=== PATIENT | female | born 1995 | race Caucasian/White ===

== ENCOUNTER 2020-06-06 11:50 | Emergency (ER) | payer OTHER, SELFPAY ==
[2020-06-06 11:51] VITALS: BP 100/62; PULSE 97; RESP 16; TEMP 36.7; O2SAT 98
--- NOTE | 2020-06-06 12:01 | ED.GENADULT ---
HPI - General Adult General Chief complaint: [employer] Stated complaint: ?FB VAGINAL Time Seen by Provider: 06/06/20 12:00 Source: patient Mode of arrival: ambulatory Limitations: no limitations History of Present Illness HPI narrative: Patient is here for concern for a retained tampon. She states that she had too much to drink last night and had intercourse with her boyfriend and thinks she forgot to remove her tampon. They they had intercourse again this morning and her boyfriend stated that he felt he could feel something. She did not try to remove the tampon herself. Onset (ago): hour(s) Treatments prior to arrival: none Related Data Home Medications Medication Instructions Recorded Confirmed escitalopram oxalate 10 mg 06/06/20 Allergies Allergy/AdvReac Type Severity Reaction Status Date / Time No Known Allergies Allergy Verified 03/05/18 15:48 Review of Systems Review of Systems: All systems reviewed & are unremarkable except as noted in HPI and below PMFSH Past Medical History Medical History (Updated 06/06/20 @ 12:16 by Mariajose Saxena PA-C) delivery delivered Colitis Depression Social History Social History (Updated 06/06/20 @ 12:11 by Mariajose Saxena PA-C) Social History: Smokes rarely. Smoking status: Current some day smoker Second hand tobacco smoke exposure: Yes Alcohol intake: current Substance use: unknown Exam Const: General: no acute distress and alert Orientation/consciousness: patient oriented x3 Eyes: Pupils: Equal, round and reactive pupils present Resp: Effort & Inspection: normal respiratory effort GI: GI Palp: Yes Soft to palpation : Speculum Exam - Vagina: normal vaginal discharge and foreign body (tampon) Skin: General skin exam: normal color Psych: Mental Status: mental status grossly normal Course Course Emergency Course: Vital Signs Vital signs: Vital Signs Temperature 36.7 C 06/06/20 11:51 Pulse Rate 97 06/06/20 11:51 Respiratory Rate 16 06/06/20 11:51 Blood Pressure 100/62 06/06/20 11:51 Pulse Oximetry 98 06/06/20 11:51 Temperature 36.7 C 06/06/20 11:51 Pulse Rate 97 06/06/20 11:51 Respiratory Rate 16 06/06/20 11:51 Blood Pressure 100/62 06/06/20 11:51 Pulse Oximetry 98 06/06/20 11:51 Procedures Foreign Body Removal Foreign Body #1: Foreign Body Removal Date: 06/06/20 Foreign Body Removal Time: 12:00 Time Out Performed: no Site: vagina Description of foreign body: other (tampon) Sedation/Analgesia: none Technique: manual removal Complications: none Post-procedure exam: awake, alert Medical Decision Making Vital Signs Vital Signs: Vital Signs Temperature 36.7 C 06/06/20 11:51 Pulse Rate 97 06/06/20 11:51 Respiratory Rate 16 06/06/20 11:51 Blood Pressure 100/62 06/06/20 11:51 Pulse Oximetry 98 06/06/20 11:51 Temperature 36.7 C 06/06/20 11:51 Pulse Rate 97 06/06/20 11:51 Respiratory Rate 16 06/06/20 11:51 Blood Pressure 100/62 06/06/20 11:51 Pulse Oximetry 98 06/06/20 11:51 Discharge Plan Discharge Clinical Impression: Retained tampon Qualifiers: Encounter type: initial encounter Qualified Code(s): T19.2XXA - Foreign body in vulva and vagina, initial encounter Patient Disposition: Home, Self-Care Condition: Improved Instructions: Antibiotic Form, Vaginal Foreign Body (ED) Prescriptions: No Action escitalopram oxalate 10 mg tablet 10 mg RF: 0 Follow-up/Referrals: Jack Uribe MD [Primary Care Provider] - Time of Disposition: 12:16
== END 2020-06-06 12:29 | disposition home or self-care (01) ==
PROVIDERS: Emergency Provider Emergency Medicine; PCP Family Medicine
DX: T19.2XXA Foreign body in vulva and vagina, initial encounter (principal); F32.9 Major depressive disorder, single episode, unspecified; F17.200 Nicotine dependence, unspecified, uncomplicated
CPT/HCPCS: 99282

== ENCOUNTER 2021-01-26 11:30 | Outpatient (CLI) | payer OTHER, SELFPAY ==
--- NOTE | 2021-01-26 11:30 | LDADM ---
Addendum entered by Anna Mejia RN 01/26/21 13:05: Wrong note Original Note: This patient, Hannah Luis, was admitted to [facility] on 01/26/21 at 11:30. Plans for labor, pain management and were discussed with patient. Patient/family oriented to hospital policies and general routines including ID bracelet, bed and alarms, visiting hours, pain management, procedures, bathroom and other care routines, personal items, smoking policy, room service/diet and guest tray routines, infant security routines, and visiting hours. Patient/Family are encouraged to report perceived risks to care and to ask questions if they do not understand what they are told or what they should do. See OBIX for further documentation.
[2021-01-26 11:42] VITALS: BP 120/65; PULSE 82
[2021-01-26 11:45] VITALS: BP 113/59; PULSE 79
[2021-01-26 12:00] VITALS: BMI 28.2
--- NOTE | 2021-01-26 13:06 | OBADM ---
This patient, Hannah Luis, admitted to the OB room [facility] for observation. Patient/family oriented to hospital policies and general routines including ID bracelet, bed and alarms, visiting hours, pain management, procedures, bathroom and other care routines, personal items, smoking policy, room service/diet, and visiting hours. Patient/Family are encouraged to report perceived risks to care and to ask questions if they do not understand what they are told or what they should do.
--- NOTE | 2021-01-26 13:06 | PC.NURSE ---
Pt presents stating that she is having lots of pressure in her vagina since this morning, and states it feels like the baby is trying to break my water . Dr Rondon was contacted at 1210 and orders were given to watch her on the monitor for a little bit longer and to d/c home if everything continues to look good.
--- NOTE | 2021-01-28 06:11 | PM.OBTRLD ---
OB - Triage/Final Diagnosis Visit Information Reason for evaluation: threatened labor Comments/Additional reasons for admission: I have assessed the risk for this patient, Hannah Luis, and determined that she would benefit from observation care.
== END 2021-01-26 12:50 | disposition home or self-care (01) ==
LOC: ANHOBPP 12:48 → ANHOBOP 01-27 13:15 → ANHOBPP 02-02 08:16
PROVIDERS: Visit Provider Obstetrics & Gynecology
DX: O41.8X30 Other specified disorders of amniotic fluid and membranes, third trimester, not applicable or unspecified (principal); Z3A.28 28 weeks gestation of pregnancy
CPT/HCPCS: 99199; G0378; G0379

== ENCOUNTER 2021-02-23 12:18 | Observation (INO) | payer OTHER, SELFPAY ==
[2021-02-23] VITALS (12 sets, daily range): BP systolic 105–117; BP diastolic 61–74; PULSE 72–94; TEMP 36.6–36.8; BMI 29.3
[2021-02-23 13:32] LABS: Basophils Percent Auto 0.2 % (0.2-1.2); Eosinophils Absolute Auto 0.2 K/mm3 (0-0.3); Eosinophils Percent Auto 1.8 % (0-4.4); Hematocrit 34.1 % (37.0-47.0); Immature Granulocyte Absolute 0.03 K/mm3 (0.00-0.031); Immature Granulocyte Percent A 0.4 % (0-0.5); Lymphocytes Absolute Auto 1.98 K/mm3 (0.9-3.2); Lymphocytes Percent Auto 23.2 % (18.3-44.2); Mean Corpuscular HGB Conc 32.3 g/dl (32-36); Mean Corpuscular Volume 86.8 fl (80-100); Mean Platelet Volume 9.9 fl (7.4-10.4); Monocytes Absolute Auto 0.7 K/mm3 (0.1-0.6); Monocytes Percent Auto 8.4 % (2.6-8.5); Neutrophils Absolute Auto 5.6 K/mm3 (1.3-6.7); Platelet Count Result 213 k/mm3 (150-375); Red Blood Count 3.93 M/mm3 (4.2-5.4); Red Cell Distribution Width 15.1 % (11.5-14.5); White Blood Count 8.5 K/mm3 (4.5-10.0)
[2021-02-23] MEDS: AMPICILLIN 2 GM/NS 100 ML 2 GM/100 ML BAG IVPB (13:34)
[2021-02-23] MEDS: BETAMETHASONE SOD PHOS/ACETATE 30 MG/5 ML VIAL 12 MG IM (13:34)
[2021-02-23] MEDS: LACTATED RINGERS 1,000 ML 125 ML IV CONT (13:35)
--- NOTE | 2021-02-23 14:09 | P.HP_ITS ---
H&P: HPI History of Present Illness Date/Time: 02/23/21 14:09 25 y/o presents with leaking fluids and spotting this morning. PNC without issue. 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 Chief Complaint: Review of Systems Review of Systems: All systems reviewed & are unremarkable except as noted in HPI and below PMFSH Past Medical History Medical History delivery delivered Colitis Depression Social History Social History Social History: Smokes rarely. Smoking status: Current some day smoker Second hand tobacco smoke exposure: Yes Alcohol intake: current Substance use: unknown Meds Home Medications and Allergies Home Medications Medication Instructions Recorded Confirmed Type escitalopram oxalate 10 mg 06/06/20 History Allergies Allergy/AdvReac Type Severity Reaction Status Date / Time No Known Allergies Allergy Verified 03/05/18 15:48 Vital Signs Vital Signs - 24 hr 02/23/21 13:00 02/23/21 13:16 02/23/21 13:30 Pulse Rate 72 94 74 Blood Pressure 105/61 117/74 112/70 02/23/21 13:45 02/23/21 14:00 Pulse Rate 77 77 Blood Pressure 113/65 117/67 Exam Const: General: cooperative Resp: Effort & Inspection: normal respiratory effort Auscultation: clear to auscultation bilaterally Cardio: Rate: regular rate Rhythm: regular rhythm GI: Auscultation: normal bowel sounds : External Female Exam: normal external appearance Speculum Exam - Vagina: other (vaginal clear d/c. some spotting) Bimanual exam- vagina & uterus: enlarged (30 cm vertex presentation) H&P: Results Labs Labs: Short CBC 02/23/21 Range/Units 13:25 WBC 8.5 (4.5-10.0) K/mm3 Hgb 11.0 L (12.0-15.0) g/dL Hct 34.1 L (37.0-47.0) % Plt Count 213 (150-375) k/mm3 Assessment and Plan Assessment and plan (1) 32 weeks gestation of : Code(s): Z3A.32 - 32 weeks gestation of Status: Acute (2) Ruptured, membranes, premature: Code(s): O42.90 - Premature rupture of membranes, unspecified as to length of time between rupture and onset of labor, unspecified weeks of gestation Status: Acute (3) Previous delivery affecting , delivered: Code(s): O34.219 - Maternal care for unspecified type scar from previous delivery Status: Acute Additional Plan 1. Magnesium 2. Antibiotics 3. Steroids 4. Transfer to [facility]
[2021-02-23] MEDS: MAGNESIUM SULF 4 GM/WATER100ML 4 GM/100 ML BAG IVPB (14:15)
[2021-02-23] MEDS: MAGNESIUM SULF 20GM/WATER500ML 500 ML 50 MG IV CONT (14:45)
== END 2021-02-23 15:38 | disposition home or self-care (01) ==
LOC: ANHOBPP 15:41 → ANHOBOP 02-25 09:46 → ANHOBPP 02-25 09:47
PROVIDERS: Admitting Provider Obstetrics & Gynecology; Visit Provider Obstetrics & Gynecology
DX: O42.913 Preterm premature rupture of membranes, unspecified as to length of time between rupture and onset of labor, third trimester (principal); Z3A.32 32 weeks gestation of pregnancy
CPT/HCPCS: 36415; 85025; 96372; 96374; 96375; G0378; G0379; J0290; J0702; J1364; J3475; J7120

== ENCOUNTER 2021-08-05 11:41 | Emergency (ER) | payer OTHER, SELFPAY ==
--- NOTE | ~2021-08-05 | XR_ITS ---
EXAMINATION: XR lumbar spine min 4V DATE: 08/05/2021 13:30 INDICATION: Low back pain. TECHNIQUE: 5 views of lumbar spine were obtained. COMPARISON: None. FINDINGS: L3 and L4 are limbus vertebrae. There are Schmorl's nodes at most levels. There is kyphosis of upper lumbar spine. There is mildly decreased disc height at L3-L4 and L4-L5. At L5-S1, there is mild bilateral facet joint osteoarthritis. IMPRESSION: 1. Mild lumbar spondylosis. Reviewed, dictated and finalized at location A. IMPRESSION: 1. Mild lumbar spondylosis.
[2021-08-05 11:50] VITALS: BP 107/60; PULSE 67; RESP 16; TEMP 36.5; O2SAT 100
--- NOTE | 2021-08-05 12:32 | ED.BACK ---
HPI - Back Pain/Injury General Chief Complaint: Back Pain/Injury Stated Complaint: back pain Time Seen by Provider: 08/05/21 12:26 Source: RN notes reviewed History of Present Illness HPI Narrative: Patient presents emergency room from home for low back pain. Patient states yesterday she has been to over cleaning she had pain in her bilateral lower back states it hurts to fully stand up and she cannot fully stand up straight she denies any falls or back or direct trauma states she is had a history of chronic back issues since she was 14 years old she denies any fevers or chills abdominal pain nausea or vomiting numbness or tingling in the extremities or any other symptoms states the pain does radiate in the left leg at times denies any bowel or bladder incontinence Related Data Allergies Allergy/AdvReac Type Severity Reaction Status Date / Time No Known Allergies Allergy Verified 03/05/18 15:48 Review of Systems Review of Systems: Gen.: Denies fevers or chills ENT: Denies congestion Respiratory: Denies shortness of breath or cough CV: Denies chest pain or palpitations GI: Denies abdominal pain nausea, emesis or diarrhea denies incontinence Musculoskeletal: See HPI Neuro: Denies numbness, tingling, weakness or focal weakness Skin: Denies rash Except as documented, all other systems reviewed and negative PENDING SALE TO [facility] Past Medical History Medical History delivery delivered Colitis Depression Social History Social History Social History: Smokes rarely. Smoking status: Current some day smoker Second hand tobacco smoke exposure: Yes Alcohol intake: current Substance use: unknown Exam Narrative: APPEARANCE: No acute distress, nontoxic, resting in bed Eyes: EOMI HEENT: Normocephalic, atraumatic, CV: Regular rate and rhythm without murmur RESPIRATORY: No respiratory distress. Clear to auscultation bilaterally. Abdomen: Soft and nontender, no rebound or guarding MUSCULOSKELETAl: Moves all extremities, no clubbing cyanosis or edema Back: No midline lumbar tenderness to palpation or step-off, tender to palpation over bilateral paravertebral muscles L3-5 , pain increased with forward flexion NEURO: Awake and alert. Following commands, speech normal, no focal deficits, muscle strength 5 out of 5 bilateral lower extremities, bilateral patellar reflex 2+ SKIN:: Warm, dry. Normal Color no rash or lesions Course Vital Signs Vital signs: Vital Signs Temperature 97.7 F 08/05/21 11:50 Pulse Rate 67 08/05/21 11:50 Respiratory Rate 16 08/05/21 11:50 Blood Pressure 107/60 08/05/21 11:50 Pulse Oximetry 100 08/05/21 11:50 Temperature 97.7 F 08/05/21 11:50 Pulse Rate 67 08/05/21 11:50 Respiratory Rate 16 08/05/21 11:50 Blood Pressure 107/60 08/05/21 11:50 Pulse Oximetry 100 08/05/21 11:50 MDM - Back Pain/Injury MDM Narrative Medical decision making narrative: Patient?s pain is positional and localized to back without signs of cord compression or cauda equina. Normal nuerologic exams. No fever noted and no significant risk factors for osteomyelitis or spinal epidural abscess. No symptoms or signs to suggest pain is referred from abdominal or source. There are no pulsatile masses to exam. Patient ambulates with a steady gait and is felt to be up reasonable candidate for continued outpatient management Imaging Data Radiologist's impression: ITS Impressions Lumbar Spine X-Ray 08/05/21 13:32 IMPRESSION: 1. Mild lumbar spondylosis. Discharge Plan Discharge Clinical Impression: Low back pain Patient Disposition: Home, Self-Care Condition: Stable Instructions: Antibiotic Form, Acute Low Back Pain (ED) Additional Instructions: Return for increasing pain numbness or tingling in extremities bowel or bladder incontinence or any other symptoms
[2021-08-05] MEDS: CYCLOBENZAPRINE HCL 10 MG TABLET PO (12:55)
[2021-08-05] MEDS: IBUPROFEN 600 MG TABLET PO (12:55)
== END 2021-08-05 13:50 | disposition home or self-care (01) ==
PROVIDERS: Emergency Provider Emergency Medicine
DX: M54.50 Low back pain, unspecified (principal); F17.200 Nicotine dependence, unspecified, uncomplicated; M47.816 Spondylosis without myelopathy or radiculopathy, lumbar region
CPT/HCPCS: 72110; 99283; A9270

== ENCOUNTER 2022-05-09 15:07 | Emergency (ER) | payer OTHER, SELFPAY ==
--- NOTE | ~2022-05-09 | XR_ITS ---
XR foot LT min 3V DATE: 05/09/2022 16:03 INDICATION: Heel pain, foot pain. Plantar callus. No known injury. TECHNIQUE: 4 views COMPARISON: None FINDINGS: No fracture or dislocation, periosteal reaction or bone destruction. Joint spaces are prese rved. No erosive change. IMPRESSION: Negative Reviewed, dictated and finalized at location A. IMPRESSION: Negative
[2022-05-09 15:22] VITALS: BP 113/78; PULSE 69; RESP 14; TEMP 36.7; O2SAT 100
--- NOTE | 2022-05-09 16:23 | ED.LOWEXIN ---
HPI - Extremity Injury (Lower) General Chief Complaint: Extremity Injury, Lower <Hannah Tipton PA-C - Last Filed: 05/09/22 17:27> Stated Complaint: LEFT FOOT PAIN <SELWYN Herrera Last Filed: 05/09/22 17:27> Time Seen by Provider: 05/09/22 16:07 <Hannah Tipton PA-C - Last Filed: 05/09/22 17:27> Source: patient <SELWYN Herrera Last Filed: 05/09/22 17:27> Mode of arrival: ambulatory <SELWYN Herrera Last Filed: 05/09/22 17:27> Limitations: no limitations <SELWYN Herrera Last Filed: 05/09/22 17:27> History of Present Illness HPI Narrative: Patient is a 26-year-old female who presents the ED with report of left foot pain. Patient reports having pain to the ball of her foot, and near her left heel, in the region of her arch. She states the pain has been ongoing and progressively worsening for the past year, but she started a new job yesterday and has had increasing pain since being on her feet. She has not taken anything for the pain today. She states the pain in her forefoot only occasionally hurts, but the pain near her heel is very severe in the morning. Improves throughout the day, but then achy at night after being on her feet. Denies any numbness, tingling, weakness. Denies injury or recent falls. <SELWYN Herrera Last Filed: 05/09/22 17:27> Related Data Allergies/Adverse Reactions: Allergies Allergy/AdvReac Type Severity Reaction Status Date / Time No Known Allergies Allergy Verified 05/09/22 16:03 <Hannah Tipton PA-C - Last Filed: 05/09/22 17:27> Review of Systems Review of Systems: CONSTITUTIONAL: Denies fever, chills, or sweats. EYES: Denies visual changes, redness, or discharge. ENT: Denies rhinorrhea, congestion, sore throat, or otalgia. CARDIOVASCULAR: Denies chest pain, palpitations, or edema. RESPIRATORY: Denies cough or dyspnea. GASTROINTESTINAL: Denies abdominal pain, nausea, vomiting, or diarrhea. GENITOURINARY: Denies dysuria or hematuria. SKIN: Denies rash or itching. MUSCULOSKELETAL: Denies back pain, joint pain, or myalgia. NEUROLOGIC: Denies numbness, tingling, or weakness. <Hannah Tipton PA-C - Last Filed: 05/09/22 17:27> All systems reviewed & are unremarkable except as noted in HPI and below <Hannah Tipton PA-C - Last Filed: 05/09/22 17:27> PMFSH Past Medical History Medical History: Medical History (Updated 05/09/22 @ 16:50 by Hannah Tipton PA-C) delivery delivered Colitis Depression <Hannah Tipton PA-C - Last Filed: 05/09/22 17:27> Surgical History Surgical History: Surgical History (Updated 05/09/22 @ 16:25 by Hannah Tipton PA-C) History of section <Hannah Tipton PA-C - Last Filed: 05/09/22 17:27> Social History Social History: Social History Social History: Smokes rarely. Smoking status: Current some day smoker Second hand tobacco smoke exposure: Yes Alcohol intake: current Substance use: unknown <Hannah Tipton PA-C - Last Filed: 05/09/22 17:27> Exam Narrative: GENERAL: Well appearing, well-nourished, non-toxic, in no acute distress. HEAD: Normocephalic, atraumatic. RESPIRATORY: Airway patent, respirations nonlabored. CARDIOVASCULAR: Regular rate and rhythm without murmurs, rubs, or gallops. Pedal pulses 2+ and equal bilaterally. MUSCULOSKELETAL: Moves all extremities. Strength/ROM intact without gross deformities. Tender marble sized thickening of tissue between 2nd/3rd MTPs, palpable on plantar aspect of forefoot. TTP of plantar aspect of R foot/arch, along plantar fascia, just distal to calcaneus. No edema. No calf tenderness. SKIN: Warm, dry, normal color. No rashes. NEURO: A&O X3. Speech clear. Cranial nerves II-XII grossly intact. Steady gait. No ataxic movements. PSYCHIATRIC: Appropriate mood and affect. Normal interaction. <Hannah Tipton PA-C - Last Filed:
[2022-05-09] MEDS: KETOROLAC (*BKC) 60 MG/2 ML VIAL IM (17:09)
== END 2022-05-09 17:20 | disposition home or self-care (01) ==
PROVIDERS: Emergency Provider Emergency Medicine
DX: M72.2 Plantar fascial fibromatosis (principal); F17.200 Nicotine dependence, unspecified, uncomplicated
CPT/HCPCS: 73630; 96372; 99283; J1885

== ENCOUNTER 2023-04-01 17:47 | Observation (INO) | payer OTHER, SELFPAY ==
[2023-04-01 18:17] VITALS: BP 109/63; PULSE 76
[2023-04-01 18:21] VITALS: RESP 17; TEMP 36.8
[2023-04-01 18:35] LABS: Appearance Urine Cloudy (Clear); Bacteria Urine 1+ /hpf; Bilirubin Urine Negative (Negative); Blood Urine Negative (Negative); Color Urine Dark Yellow (Yellow); Glucose Urine UA Negative (Negative); Ketones Urine Trace mg/dL (Negative); Leukocyte Esterase Ur Trace LEU/UL (NEGATIVE); Nitrate Urine Negative (Negative); Non Pathogenic Casts 0-2; Protein Urine Trace mg/dL (Negative); RBC Urine 0-2 /hpf (0-2); Specific Grav Ur 1.031 (1.001-1.035); Squamous Epithelial Cell Urine Few /hpf (Few); Urobilinogen Urine 0.2 mg/dL (<2.0); pH Urine 5.5 (5.0-9.0)
[2023-04-01 18:43] LABS: Add Urine Microscopic? YES
--- NOTE | 2023-04-01 18:47 | PC.NURSE ---
Updated Dr. Urbina on patient UA results, UA reflexed to culture. Patient states pain is worsened with movement. Patient VSS. FHT doppled 145. No contractions noted with TOCO monitor. Discharge orders received.
--- NOTE | 2023-04-01 19:05 | PC.NURSE ---
Discharge instructions reviewed with patient. labor precautions reviewed with patient. Macrobid prescription education provided to patient and patient instructed to pickle solution maker prescription at her pharmacy and take it as prescribed. Patient states understanding of discharge instructions and denies any questions. Patient instructed to take tylenol and use ice and heat for pain relief. Patient states she is comfortable with discharge and understands instructions.
--- NOTE | 2023-04-01 19:12 | PC.NURSE ---
Patient left OB unit ambulating.
--- NOTE | 2023-04-04 07:26 | PM.OBTRLD ---
OB - Triage/Final Diagnosis Visit Information Reason for evaluation: other ( back pain) Comments/Additional reasons for admission: I have assessed the risk for this patient, Hannah Luis, and determined that she would benefit from observation care. Evaluation Laboratory results: Laboratory Tests 04/01/23 18:21 Urine Color Dark yellow Urine Appearance Cloudy H Urine pH 5.5 Ur Specific [place] 1.031 Urine Protein Trace Urine Glucose (UA) Negative Urine Ketones Trace H Ur Blood (Man) Negative Urine Nitrate Negative Urine Bilirubin Negative Urine Urobilinogen 0.2 Ur Leukocyte Esterase Trace H Urine RBC 0-2 Urine WBC 11-20 H Ur Squamous Epith Cells Few Urine Bacteria 1+ H Urine Casts 0-2
== END 2023-04-01 19:13 | disposition home or self-care (01) ==
PROVIDERS: Admitting Provider Obstetrics & Gynecology Gynecology; Visit Provider Obstetrics & Gynecology Gynecology
DX: O99.891 Other specified diseases and conditions complicating pregnancy (principal); M54.9 Dorsalgia, unspecified; Z3A.16 16 weeks gestation of pregnancy
CPT/HCPCS: 81001; 87086; 87088; G0378; G0379

== ENCOUNTER 2023-07-11 20:33 | Observation (INO) | payer OTHER, SELFPAY ==
[2023-07-11 20:54] VITALS: BP 116/68; PULSE 97
[2023-07-11 21:13] LABS: Appearance Urine Clear (Clear); Bacteria Urine None Seen /hpf; Bilirubin Urine Negative (Negative); Blood Urine Negative (Negative); Color Urine Yellow (Yellow); Glucose Urine UA Negative (Negative); Ketones Urine Negative (Negative); Leukocyte Esterase Ur Trace LEU/UL (NEGATIVE); Nitrate Urine Negative (Negative); Non Pathogenic Casts 0-2; Protein Urine Negative (Negative); RBC Urine 0-2 /hpf (0-2); Squamous Epithelial Cell Urine None seen /hpf (Few); Urobilinogen Urine 0.2 mg/dL (<2.0); WBC Urine 0-5 /hpf (0-3)
[2023-07-11 21:17] LABS: Add Urine Microscopic? YES
--- NOTE | 2023-07-12 16:13 | PM.OBTRLD ---
OB - Triage/Final Diagnosis Visit Information Reason for evaluation: threatened labor Comments/Additional reasons for admission: I have assessed the risk for this patient, Hannah Luis, and determined that she would benefit from observation care. Evaluation Laboratory results: Laboratory Tests 07/11/23 20:59 Urine Color Yellow Urine Appearance Clear Urine pH 6.0 Ur Specific [place] 1.020 Urine Protein Negative Urine Glucose (UA) Negative Urine Ketones Negative Ur Blood (Man) Negative Urine Nitrate Negative Urine Bilirubin Negative Urine Urobilinogen 0.2 Ur Leukocyte Esterase Trace H Urine RBC 0-2 Urine WBC 0-5 Ur Squamous Epith Cells None seen Urine Bacteria None seen Urine Casts 0-2 Vital signs: Vital Signs - 24 hr 07/11/23 20:54 07/11/23 20:45 Pulse Rate 97 Blood Pressure 116/68 Oxygen Delivery Room Air
== END 2023-07-11 21:35 | disposition hospice, home (50) ==
PROVIDERS: Admitting Provider Obstetrics & Gynecology; Visit Provider Obstetrics & Gynecology
DX: O47.03 False labor before 37 completed weeks of gestation, third trimester (principal); O26.893 Other specified pregnancy related conditions, third trimester; R10.9 Unspecified abdominal pain; Z3A.31 31 weeks gestation of pregnancy
CPT/HCPCS: 81001; 87086; G0378; G0379

== ENCOUNTER 2023-08-08 13:57 | Emergency (ER) | payer OTHER, SELFPAY ==
--- NOTE | ~2023-08-08 | US_ITS ---
US OB limited 08/08/2023 15:37 Indication: Evaluate well-being Procedure: High-resolution Limited obstetrical ultrasound Comparison: No prior studies for comparison. Findings: There is a single living intrauterine in vertex presentation. heart rate is 137 BPM. Placenta is on the maternal right posteriorly without evidence for previa. Amniotic fluid i ndex is normal measuring 16.2 cm. Impression: 1: Single living intrauterine in vertex presentation. 2: Normal AYUSH measures 16.2 cm. Reviewed, dictated and finalized at location L. Impression: 1: Single living intrauterine in vertex presentation. 2: Normal AYUSH measures 16.2 cm.
[2023-08-08 14:03] VITALS: BP 105/72; PULSE 86; RESP 20; TEMP 36.3; O2SAT 100
[2023-08-08 14:15] VITALS: PULSE 73; RESP 17; O2SAT 100
[2023-08-08 15:07] VITALS: BP 117/65; PULSE 70
[2023-08-08 15:31] LABS: Basophils Percent Auto 0.2 % (0.2-1.2); Eosinophils Absolute Auto 0.2 K/mm3 (0-0.3); Eosinophils Percent Auto 2.7 % (0-4.4); Hematocrit 31.9 % (37.0-47.0); Immature Granulocyte Absolute 0.03 K/mm3 (0.00-0.031); Immature Granulocyte Percent A 0.4 % (0-0.5); Lymphocytes Absolute Auto 1.91 K/mm3 (0.9-3.2); Lymphocytes Percent Auto 22.5 % (18.3-44.2); Mean Corpuscular HGB Conc 31.3 g/dl (32-36); Mean Corpuscular Hemoglobin 27.9 pg (26-34); Mean Corpuscular Volume 88.9 fl (80-100); Mean Platelet Volume 9.6 fl (7.4-10.4); Monocytes Absolute Auto 0.7 K/mm3 (0.1-0.6); Monocytes Percent Auto 8.6 % (2.6-8.5); Neutrophils Absolute Auto 5.6 K/mm3 (1.3-6.7); Neutrophils Percent Auto 65.6 % (45.5-73.1); Platelet Count Result 249 k/mm3 (150-375); Red Blood Count 3.59 M/mm3 (4.2-5.4); Red Cell Distribution Width 12.4 % (11.5-14.5); White Blood Count 8.5 K/mm3 (4.5-10.0)
[2023-08-08 15:41] LABS: INR 0.9; Partial Thromboplastin Time 25.2 SECONDS (22.3-36.8); Prothrombin Time 12.3 Seconds (11.1-14.7)
--- NOTE | 2023-08-08 15:41 | ED.GENADULT ---
[facility] - General Adult General Chief complaint: Fall Stated complaint: fell and hit head, 35 weeks Time Seen by Provider: 08/08/23 14:29 Source: patient Mode of arrival: ambulatory Limitations: no limitations History of Present Illness [facility] narrative: This is a 28-year-old female who is approximately 35 weeks who presents to the ED with chief complaint of a fall that occurred just prior to arrival. Patient reports that she was outside with her kids using a hose when she suddenly had to turn around. She reports that when she did this she accidentally tripped and fell backwards. Reports hitting the back of her head on the cement. Denies LOC. She does not take blood thinners. Denies any subsequent numbness, weakness or any other neurologic problems. Reports a little bit of superior headache and neck pain. Denies any further complaint. Related Data Allergies Allergy/AdvReac Type Severity Reaction Status Date / Time No Known Allergies Allergy Verified 05/09/22 16:03 Review of Systems Review of Systems: All systems as dictated in [facility] Past Medical History Medical History (Updated 08/08/23 @ 16:40 by Altaf Walden PA-C) delivery delivered Colitis Depression Surgical History Surgical History (Updated 05/09/22 @ 16:25 by Hannah Castro PA-C) History of section Social History Social History Social History: Smokes rarely. Smoking status: Current some day smoker Second hand tobacco smoke exposure: Yes Alcohol intake: current Substance use: unknown Exam Narrative: GENERAL: Well-appearing, well-nourished, and in no acute distress. HEAD: Normocephalic, atraumatic. EYES: PERRLA and EOMI. ENT: Nares clear, no rhinorrhea or epistaxis. Mucous membranes moist. Oropharynx without tonsillar hypertrophy exudate or other lesions. NECK: Supple. No adenopathy or masses. CHEST: No respiratory distress. Clear to auscultation. No wheezes rales or rhonchi HEART: Regular rate and rhythm. No murmur heard. Normal peripheral pulses. ABDOMEN: Gravid abdomen. Soft, nontender, nondistended, normal active bowel sounds. MSK: Normal range of motion. No edema. SKIN: Warm, dry, no rash. NEURO: Alert and oriented x4. No focal deficits. Cranial nerves II through XII intact. Coordination intact. +5 strength and sensation in the upper and lower extremities. PSYCH: Normal mood and affect. Course Vital Signs Vital signs: Vital Signs Temperature 97.3 F L 08/08/23 14:03 Pulse Rate 86 08/08/23 14:03 Respiratory Rate 20 08/08/23 14:03 Blood Pressure 105/72 08/08/23 14:03 Pulse Oximetry 100 08/08/23 14:03 Oxygen Delivery Room Air 08/08/23 14:03 Temperature 97.3 F L 08/08/23 14:03 Pulse Rate 70 08/08/23 15:07 Respiratory Rate 17 08/08/23 14:15 Blood Pressure 117/65 08/08/23 15:07 Pulse Oximetry 100 08/08/23 14:15 Oxygen Delivery Room Air 08/08/23 14:03 Medical Decision Making MDM Narrative Medical decision making narrative: This is a 28-year-old female who is around 35 weeks who presents to the ED with chief complaint of a fall with head injury. Vitals are normal. During the exam she also complains of some intermittent abdominal cramping but says this is less severe than her head and her neck. Neurologic exam fully intact. She is cleared by [place] head and C-spine precautions for CT scans. No further imaging warranted. We had a discussion about this and she does not want to proceed with any CT imaging. She was cleared by the OB nurses with a normal nonstress test. Transvaginal ultrasound shows no acute findings. Placenta in good position. After reevaluation she feels much improved with Tylenol and would like to go home. She has no further complaints. She is stable for discharge home. Advised that she follow-up very closely with OB and strict return pre
[2023-08-08] MEDS: ACETAMINOPHEN 500 MG TABLET 1000 MG PO (15:57)
--- NOTE | 2023-08-08 16:20 | PC.NURSE ---
pt ambulatory to bathroom with no distress noted.
== END 2023-08-08 16:53 | disposition home or self-care (01) ==
PROVIDERS: Emergency Provider Physician Assistant
DX: S09.90XA Unspecified injury of head, initial encounter (principal); O9A.213 Injury, poisoning and certain other consequences of external causes complicating pregnancy, third trimester; Z3A.35 35 weeks gestation of pregnancy; W01.0XXA Fall on same level from slipping, tripping and stumbling without subsequent striking against object, initial encounter
CPT/HCPCS: 36415; 76815; 85025; 85610; 85730; 99284; A9270

== ENCOUNTER 2023-08-25 11:26 | Observation (INO) | payer OTHER, SELFPAY ==
[2023-08-25 11:51] VITALS: BP 100/66; PULSE 94
[2023-08-25 12:00] VITALS: BP 103/68; PULSE 81
[2023-08-25 12:19] VITALS: BMI 29.7
== END 2023-08-25 12:31 | disposition home or self-care (01) ==
PROVIDERS: Admitting Provider Obstetrics & Gynecology Gynecology; Visit Provider Obstetrics & Gynecology Gynecology
DX: O47.1 False labor at or after 37 completed weeks of gestation (principal); Z3A.37 37 weeks gestation of pregnancy
CPT/HCPCS: G0378; G0379

== ENCOUNTER 2023-09-01 00:16 | Observation (INO) | payer OTHER, SELFPAY ==
--- NOTE | 2023-09-01 01:27 | OBADM ---
This patient, Hannah Luis, admitted to the OB room for observation. Patient/family oriented to hospital policies and general routines including ID bracelet, bed and alarms, visiting hours, pain management, procedures, bathroom and other care routines, personal items, smoking policy, room service/diet, and visiting hours. Patient/Family are encouraged to report perceived risks to care and to ask questions if they do not understand what they are told or what they should do.
--- NOTE | 2023-09-15 11:40 | PM.OBTRLD ---
OB - Triage/Final Diagnosis Visit Information Comments/Additional reasons for admission: I have assessed the risk for this patient, Hannah Luis, and determined that she would benefit from observation care. Final Diagnosis (1) Uterine contractions: Code(s): O47.9 - False labor, unspecified Status: Acute
== END 2023-09-01 01:30 | disposition home or self-care (01) ==
PROVIDERS: Admitting Provider Obstetrics & Gynecology; Visit Provider Obstetrics & Gynecology
DX: O47.1 False labor at or after 37 completed weeks of gestation (principal); Z3A.38 38 weeks gestation of pregnancy
CPT/HCPCS: G0378; G0379

== ENCOUNTER 2023-09-02 21:55 | Inpatient (IN) | payer OTHER, SELFPAY ==
--- NOTE | 2023-09-02 21:55 | LDADM ---
This patient, Hannah Luis, was admitted to Labor/Delivery/Recovery 105 on 09/02/23 at 21:55. Plans for labor, pain management and were discussed with patient. Patient/family oriented to hospital policies and general routines including ID bracelet, bed and alarms, visiting hours, pain management, procedures, bathroom and other care routines, personal items, smoking policy, room service/diet and guest tray routines, security routines, and visiting hours. Patient/Family are encouraged to report perceived risks to care and to ask questions if they do not understand what they are told or what they should do. See OBIX for further documentation.
[2023-09-02 22:17] VITALS: BMI 29.7
--- NOTE | 2023-09-02 22:27 | PM.IMHP ---
H&P: HPI History of Present Illness Date/Time: 09/02/23 22:27 28-year-old female 4 para 3003 38 weeks presents with rupture membranes in active labor. she has had a previous delivery, followed by successful . She has been receiving her care in [place]. Due to pain unable to proceed to [place] and therefore presents here. Chief Complaint: Review of Systems Review of Systems: All systems reviewed & are unremarkable except as noted in HPI and below PMFSH Past Medical History Medical History delivery delivered Colitis Depression Surgical History Surgical History History of section Social History Social History Social History: Smokes rarely. Smoking status: Former smoker Tobacco type: e-cigarettes/vaping Second hand tobacco smoke exposure: No Alcohol intake: current Substance use: unknown Lack of Transportation: No Lack of Food: Never True Current Housing: I Have Housing Concerned About Future Housing: No Difficulty Paying Gas/Electric Bills: No Difficulty Paying for Meds: No Currently Unemployed: No Education: Grade School Difficulty w/ Childcare or Family Care: No Meds Home Medications and Allergies Allergies Allergy/AdvReac Type Severity Reaction Status Date / Time No Known Allergies Allergy Verified 05/09/22 16:03 Exam Const: General: healthy appearing Resp: Effort & Inspection: normal respiratory effort Auscultation: clear to auscultation bilaterally Cardio: Rate: regular rate Rhythm: regular rhythm GI: Inspection: normal to inspection and incision Auscultation: normal bowel sounds : Manual OB Exam: dilated 4 cm, effaced 50% and station high Assessment and Plan Assessment and plan (1) 38 weeks gestation of : Code(s): Z3A.38 - 38 weeks gestation of Status: Acute (2) Ruptured, membranes, premature: Code(s): O42.90 - Premature rupture of membranes, unspecified as to length of time between rupture and onset of labor, unspecified weeks of gestation Status: Acute (3) History of section: Code(s): Z98.891 - History of uterine scar from previous surgery Status: Acute Plan proceed with repeat delivery.
--- NOTE | 2023-09-02 22:32 | WPDHPUPDATE1 ---
History and Physical Update Update Date/Time: 09/02/23 22:32 History and Physical has been reviewed, including an updated exam of the patient. There are NO changes in the patient's condition. Risks, benefits, and alternatives have been discussed and questions answered. Patient agrees to proceed with procedure.
[2023-09-02 22:34] LABS: Basophils Percent Auto 0.3 % (0.2-1.2); Eosinophils Absolute Auto 0.2 K/mm3 (0-0.3); Eosinophils Percent Auto 1.3 % (0-4.4); Hematocrit 32.1 % (37.0-47.0); Hemoglobin 10.4 g/dL (12.0-15.0); Immature Granulocyte Absolute 0.05 K/mm3 (0.00-0.031); Immature Granulocyte Percent A 0.4 % (0-0.5); Lymphocytes Absolute Auto 2.41 K/mm3 (0.9-3.2); Lymphocytes Percent Auto 20.8 % (18.3-44.2); Mean Corpuscular HGB Conc 32.4 g/dl (32-36); Mean Corpuscular Hemoglobin 26.7 pg (26-34); Mean Corpuscular Volume 82.3 fl (80-100); Mean Platelet Volume 10.3 fl (7.4-10.4); Monocytes Absolute Auto 0.9 K/mm3 (0.1-0.6); Monocytes Percent Auto 7.7 % (2.6-8.5); Neutrophils Absolute Auto 8.1 K/mm3 (1.3-6.7); Neutrophils Percent Auto 69.5 % (45.5-73.1); Platelet Count Result 275 k/mm3 (150-375); Red Cell Distribution Width 13.7 % (11.5-14.5); White Blood Count 11.6 K/mm3 (4.5-10.0)
--- NOTE | 2023-09-02 22:48 | P.PNAN_ITS ---
Anes - Eval Pre Procedure Procedure: Operation Date: 09/02/23 22:30 Proposed Procedures p Section - Guzman Rondon MD Date/Time: 09/02/23 22:48 Pre Op Diagnosis: Contractions/Leaking Patient Data Age: 28 Gender: F Height: 1.65 m Weight: 81 kg Allergies Allergy/AdvReac Type Severity Reaction Status Date / Time No Known Allergies Allergy Verified 05/09/22 16:03 Laboratory Tests 09/02/23 22:20 WBC Pending RBC Pending Hgb Pending Hct Pending MCV Pending MCH Pending MCHC Pending RDW Pending Plt Count Pending MPV Pending Immature Gran % (Auto) Pending Neut % (Auto) Pending Lymph % (Auto) Pending Moody % (Auto) Pending Eos % (Auto) Pending Baso % (Auto) Pending Lymph # (Auto) Pending Moody # (Auto) Pending Eos # (Auto) Pending Baso # (Auto) Pending Abs Immat Gran (auto) Pending Absolute Neuts (auto) Pending Absolute Nucleated RBC Pending Nucleated RBC % Pending RPR Pending Hep Bs Antigen Pending HIV 1&2 Ab/P24 Ag 4thGn Pending Rubella IgG Antibody Pending Patient hx anesthesia problems: none Family hx anesthesia problems: none Results Review: All pre-operative results and documents have been reviewed as part of the pre- operative evaluation. [facility] Past Medical History Medical History delivery delivered Colitis Depression Surgical History Surgical History History of section Social History Social History Social History: Smokes rarely. Smoking status: Former smoker Tobacco type: e-cigarettes/vaping Second hand tobacco smoke exposure: No Alcohol intake: current Substance use: unknown Lack of Transportation: No Lack of Food: Never True Current Housing: I Have Housing Concerned About Future Housing: No Difficulty Paying Gas/Electric Bills: No Difficulty Paying for Meds: No Currently Unemployed: No Education: Grade School Difficulty w/ Childcare or Family Care: No Exam Day of Procedure 09/02/23 22:48 Patient weight: normal Heart: regular rate and rhythm Lungs: normal air movement Airway: Mallampati scale Neurological: alert and oriented
[2023-09-02] MEDS: fentaNYL CITRATE INJ (*CRX) 100 MCG/2 ML VIAL IV PUSH (23:10)
--- NOTE | 2023-09-02 23:16 | P.PCNOB_ITS ---
OB - Vaginal Delivery Note Procedure Delivery date: 09/02/23 Events: Previous Delivery Induction method: None Delivery monitor: External FHT and External Uterine Route of delivery: Episiotomy description: None Laceration Description: None Specimen: Yes Quantitative Blood Loss (ml): 200 Anesthesia type: None Disposition: Floor Complications: No immediate complications Narrative: Patient prepped in usual manner for this procedure, as she had proceeded to complete dilation while awaiting preparation. Vaginal delivery oa vertex with nuchal cord x2 which was cut, rest of baby delivered baby was passed off the operative field. Placenta delivered spontaneously and uterus was well contracted. Small lacerations were noted on the perineum, not bleeding and superficial therefore no repair. At this point the procedure was considered terminated with the immediate postoperative condition of mother and baby both satisfactory. [facility] Weeks of gestation at delivery: 38 gender: Female presentation: vertex position: Right Occiput Anterior Placenta delivery description: Spontaneous Cord Vessel Description: 3 Vessels, Nuchal Cord (x2) and Clamped/Cut [facility]G Delivery Billing Delivery Delivery: Delivery Charge
[2023-09-02] MEDS: LACTATED RINGERS 1,000 ML 125 ML IV CONT (23:22)
[2023-09-02 23:24] LABS: HIV 1/2 Ab P24 Ag Result Negative (Negative)
[2023-09-02] MEDS: OXYTOCIN 30 UNITS/NS 500 ML 30 UNITS/500 ML BAG 999 UNITS IV CONT (23:24)
[2023-09-02] MEDS: OXYTOCIN 30 UNITS/NS 500 ML 30 UNITS/500 ML BAG 125 UNITS IV CONT (23:24)
[2023-09-02 23:30] LABS: Rubella IgG Antibody 21.5 IU/ML
[2023-09-02 23:31] LABS: Hepatitis B Surface Antigen Negative (Negative)
[2023-09-03 00:30] VITALS: TEMP 37
--- NOTE | 2023-09-03 01:30 | OBPPTRN ---
Patient transferred to post room #286 via (wheelchair). Support person present. Oriented to unit, room, information board, rooming in, admission packet and security measures. Patient verbalizes understanding.
[2023-09-03] MEDS: ACETAMINOPHEN 325 MG TABLET 650 MG PO (01:52)
[2023-09-03 02:00] VITALS: BP 106/70; PULSE 70; RESP 18; TEMP 37; O2SAT 98
[2023-09-03] MEDS: CALCIUM CARBONATE (TUMS) 500 MG (200 MG ELEMENTAL) 400 MG (03:04)
[2023-09-03 04:00] VITALS: BP 109/64; PULSE 64; RESP 18; TEMP 36.8; O2SAT 98
[2023-09-03 06:09] LABS: Hemoglobin 9.2 g/dL (12.0-15.0)
[2023-09-03 07:30] VITALS: BP 109/74; PULSE 69; RESP 18; TEMP 37.2; O2SAT 100
--- NOTE | 2023-09-03 07:33 | P.DS_ITS ---
DS: Admitting Diagnosis Discharge Date 09/04/2023 Admitting Diagnosis DS: Discharge Diagnosis Discharge Diagnosis (1) , delivered: Code(s): O80 - Encounter for full-term uncomplicated delivery Status: Acute (2) Postoperative pain: Code(s): G89.18 - Other acute postprocedural pain Status: Acute OB - DS: Summary OB Procedures : None OB Procedures Intrapartum: OB Procedures: : None Peripartum Data Laceration Description: None Episiotomy description: None Procedures: Procedures Operation Date: 09/02/23 22:30 <No data on this case meets the specified criteria> Time Spent with Patient Time attestation: Total time spent providing and/or coordinating discharge services: DS: Data Data Completed and Pending Pending studies at discharge: Pending at discharge 09/03/23 00:15 Surgical [PTH] Routine Labs on day of discharge: Labs from last 24 hours 09/03/23 09/02/23 04:30 22:20 WBC 11.6 H RBC 3.90 L Hgb 9.2 L 10.4 L Hct 30.0 L 32.1 L MCV 82.3 MCH 26.7 MCHC 32.4 RDW 13.7 Plt Count 275 MPV 10.3 Immature Gran % (Auto) 0.4 Neut % (Auto) 69.5 Lymph % (Auto) 20.8 Gillespie % (Auto) 7.7 Eos % (Auto) 1.3 Baso % (Auto) 0.3 Lymph # (Auto) 2.41 Gillespie # (Auto) 0.9 H Eos # (Auto) 0.2 Baso # (Auto) 0.0 Abs Immat Gran (auto) 0.05 H Absolute Neuts (auto) 8.1 H Absolute Nucleated RBC 0.0 Nucleated RBC % 0.0 RPR Pending Hep Bs Antigen Negative HIV 1&2 Ab/P24 Ag 4thGn Negative Rubella IgG Antibody 21.5 Blood Type B Positive Antibody Screen Negative Discharge Plan Discharge Discharging Clinician: Guzman Rondon Patient Disposition: Home, Self-Care Activity: as tolerated Diet: as tolerated Patient Instructions: Antibiotic Form Stand Alone Forms: General Discharge Information Follow-up/Referrals: Guzman Rondon MD [Physician] - 3 Weeks Discharge Medications: New hydrocodone-acetaminophen 5-325 mg Tablet 1 tablet PO Q3H PRN (Reason: Moderate Pain (4-6)) Qty: 12 0RF ibuprofen 600 mg Tablet 600 mg PO Q6H PRN (Reason: Cramping) Qty: 20 0RF Date of admission: 09/02/23 21:55 Primary Care Provider: PHYSICIAN,ASSOCIATE DIRECTOR OF NURSING Admitting Provider: Guzman Rondon Attending physician on admission: Guzman Rondon Condition: Stable
[2023-09-03] MEDS: IBUPROFEN 600 MG TABLET PO ×4 (07:45→21:30)
[2023-09-03] MEDS: POLYSACCHARIDE IRON COMPLEX 150 MG CAPSULE PO ×2 (07:46→15:30)
[2023-09-03] MEDS: HYDROcodone/acetaminophen (*CRX) 5-325 MG TABLET 1 TAB PO ×4 (07:46→23:40)
[2023-09-03] MEDS: DOCUSATE SODIUM 100 MG CAPSULE PO ×2 (07:46→15:31)
[2023-09-03 11:45] VITALS: BP 119/61; PULSE 62; RESP 18; TEMP 36.7; O2SAT 99
[2023-09-03] MEDS: SIMETHICONE 80 MG TAB.CHEW PO ×2 (12:31→15:34)
[2023-09-03] MEDS: CALCIUM CARBONATE (TUMS) 500 MG (200 MG ELEMENTAL) PO (15:34)
[2023-09-03 19:00] VITALS: BP 111/89; PULSE 70; RESP 18; TEMP 36.5
[2023-09-04] MEDS: IBUPROFEN 600 MG TABLET PO (04:44)
[2023-09-04] MEDS: HYDROcodone/acetaminophen (*CRX) 5-325 MG TABLET 1 TAB PO ×2 (04:44→07:53)
[2023-09-04] MEDS: POLYSACCHARIDE IRON COMPLEX 150 MG CAPSULE PO (07:53)
[2023-09-04] MEDS: DOCUSATE SODIUM 100 MG CAPSULE PO (07:53)
[2023-09-04 08:00] VITALS: BP 119/80; PULSE 63; RESP 18; TEMP 36.4; O2SAT 100
[2023-09-04 08:14] LABS: Rapid Plasma Reagin Non-Reactive (NonReactive)
[2023-09-06 10:23] VITALS: BP 113/61; PULSE 72; RESP 18; TEMP 36.8; O2SAT 100
== END 2023-09-04 11:30 | disposition home or self-care (01) | DRG 560 ==
LOC: ANHLDR 22:05 → ANHOB2 09-03 01:08
PROVIDERS: Admitting Provider Obstetrics & Gynecology; Visit Provider Obstetrics & Gynecology
DX: O34.219 Maternal care for unspecified type scar from previous cesarean delivery (principal); Z37.0 Single live birth; O42.92 Full-term premature rupture of membranes, unspecified as to length of time between rupture and onset of labor; Z87.891 Personal history of nicotine dependence; O62.3 Precipitate labor; O69.81X0 Labor and delivery complicated by cord around neck, without compression, not applicable or unspecified; O70.0 First degree perineal laceration during delivery; Z3A.38 38 weeks gestation of pregnancy
CPT/HCPCS: 36415; 85014; 85018; 85025; 86592; 86703; 86762; 86850; 86900; 86901; 87340; 88307; A9270; G0432; J2590; J3010; J7120

== ENCOUNTER 2024-06-21 19:26 | Emergency (ER) | payer OTHER, SELFPAY ==
[2024-06-21 19:38] VITALS: BP 120/70; PULSE 108; RESP 20; TEMP 36.9; O2SAT 98
== END 2024-06-21 21:11 | disposition left against medical advice (07) ==
DX: R51.9 Headache, unspecified (principal)
CPT/HCPCS: 99199

== ENCOUNTER 2024-10-11 20:56 | Emergency (ER) | payer OTHER, SELFPAY ==
[2024-10-11 20:58] VITALS: BP 104/52; PULSE 86; RESP 15; TEMP 36.4; O2SAT 100
[2024-10-11 21:37] LABS: Strep Group A RT-PCR DETECTED (Negative)
[2024-10-11 21:45] VITALS: RESP 18; O2SAT 98
[2024-10-11 21:50] LABS: Influenza A QL RT-PCR Negative (Negative); Influenza B QL RT-PCR Negative (Negative); RSV RNA, RT-PCR Negative (Negative); SARS-CoV-2 RNA PCR Negative (Negative)
[2024-10-11 21:51] VITALS: BP 105/51; PULSE 91; RESP 18; TEMP 36.4; O2SAT 98
[2024-10-11] MEDS: AMOXICILLIN 500 MG CAPSULE PO (22:58)
[2024-10-11] MEDS: LIDOCAINE/PRILOCAINE CREAM 2.5-2.5% TUBE 1 EACH TOPICAL (22:58)
[2024-10-11] MEDS: ACYCLOVIR 400 MG TABLET PO (22:58)
[2024-10-11] MEDS: DOCUSATE SODIUM 100 MG CAPSULE PO (22:58)
--- NOTE | 2024-10-11 23:05 | ED.GENADULT ---
HPI - General Adult General Chief complaint: Unspecified Stated complaint: strep throat;pain Time Seen by Provider: 10/11/24 21:42 History of Present Illness HPI narrative: Patient is a 29-year-old female who presents to the ER with complaints of flu-like symptoms and a herpes outbreak. She reports approximately 5 days ago she was running a temperature and had a sore throat. Patient reports approximately 3 days ago she started experiencing a herpes outbreak. She reports she has continued to have flu-like symptoms, but reports her herpes outbreak has gotten worse and is causing her a fair amount of discomfort when she has a bowel movement. Patient reports her last bowel movement was approximately 2 hours ago and it was hard. She is requesting a stool softener to help decrease the pain. Patient reports she has been using ibuprofen at home for pain control. She reports she gets herpes outbreaks approximately 1 time per year. Patient reports she does not have a primary care provider. She denies any blood in her stool, urinary symptoms, abdominal pain. Related Data Allergies Allergy/AdvReac Type Severity Reaction Status Date / Time No Known Allergies Allergy Verified 06/21/24 19:41 Review of Systems Review of Systems: All systems reviewed & are unremarkable except as noted in HPI and below PMFSH Past Medical History Medical History delivery delivered Depression Colitis Surgical History Surgical History History of section Social History Social History Social History: Smokes rarely. Smoking status: Former smoker Tobacco type: e-cigarettes/vaping Second hand tobacco smoke exposure: No Alcohol intake: current Substance use: never Lack of Transportation: No Lack of Food: Never True Current Housing: I Have Housing Concerned About Future Housing: No Difficulty Paying Gas/Electric Bills: No Difficulty Paying for Meds: No Currently Unemployed: No Education: Grade School Difficulty w/ Childcare or Family Care: No Spiritual care concerns: No Exam Narrative: GENERAL: Well appearing, well-nourished, non-toxic, in acute distress (tearful) d/t pain. HEAD: Normocephalic, atraumatic. NECK: Supple. No masses. Swollen cervical lymph nodes palpable. Tonsils edematous and swollen. RESPIRATORY: Airway patent, respirations nonlabored. Clear to auscultation bilaterally, no rales, rhonchi, wheezing. CARDIOVASCULAR: Regular rate and rhythm without murmurs, rubs, or gallops. Peripheral pulses 2+ and equal bilaterally. ABDOMINAL: Soft, nontender, nondistended, no hepatosplenomegaly. Normoactive BS. MUSCULOSKELETAL: Moves all extremities. Strength/ROM intact without gross deformities. SKIN: Warm, dry, normal color. No rashes. TELEPHONE INTERCEPTOR OPERATOR did not visualize pt's herpes on her rectum. NEURO: A&O X3. Speech clear. Cranial nerves II-XII grossly intact. Steady gait. No ataxic movements. PSYCHIATRIC: Appropriate mood and affect. Normal interaction. Course Vital Signs Vital signs: Vital Signs Temperature 36.4 C L 10/11/24 20:58 Pulse Rate 86 10/11/24 20:58 Respiratory Rate 15 10/11/24 20:58 Blood Pressure 104/52 L 10/11/24 20:58 Pulse Oximetry 100 10/11/24 20:58 Oxygen Delivery Room Air 10/11/24 20:58 Temperature 36.2 C L 10/11/24 23:43 Pulse Rate 77 10/11/24 23:43 Respiratory Rate 20 10/11/24 23:43 Blood Pressure 113/59 L 10/11/24 23:43 Pulse Oximetry 99 10/11/24 23:43 Oxygen Delivery Room Air 10/11/24 20:58 Medical Decision Making MDM Narrative Medical decision making narrative: Patient is a 29-year-old female who presents to the ER with complaints of flu-like symptoms and a herpes outbreak. She reports approximately 5 days ago she was running a temperature and had a sore throat. Patient reports approximately 3 days ago she started experiencing a herpes outbreak. She reports she has continued to have flu-like symptoms, but reports her herpes outbreak has gotten worse and is causing her a fair amount of discomfort when she has a bowel movement. Patient reports her last bowel movement was approximately 2 hours ago and it was hard. She is requesting a stool softener to help decrease the pain. Patient reports she has been using ibuprofen at home for pain control. She reports she gets herpes outbreaks approximately 1 time per year. Patient reports she does not have a primary care provider. Labs Ordered: COVID/Flu/RSV swab, strep swab Imaging Ordered: None needed Results: positive strep, negative COVID/Flu/RSV Diagnosis: strep throat, herpes outbreak Patient Education/Shared MDM: Results shared with patient. Prescriptions for acyclovir, lidocaine, and amoxicillin will be sent to patient's pharmacy. She verbalizes understanding and is in agreement with plan. Vital Signs Vital Signs: Vital Signs Temperature 36.4 C L 10/11/24 20:58 Pulse Rate 86 10/11/24 20:58 Respiratory Rate 15 10/11/24 20:58 Blood Pressure 104/52 L 10/11/24 20:58 Pulse Oximetry 100 10/11/24 20:58 Oxygen Delivery Room Air 10/11/24 20:58 Temperature 36.2 C L 10/11/24 23:43 Pulse Rate 77 10/11/24 23:43 Respiratory Rate 20 10/11/24 23:43 Blood Pressure 113/59 L 10/11/24 23:43 Pulse Oximetry 99 10/11/24 23:43 Oxygen Delivery Room Air 10/11/24 20:58 Lab Data Lab results reviewed: Yes I reviewed the patient's lab results. Labs: Lab Results 10/11/24 Range/Units 21:04 Influenza A (RT-PCR) Negative (Negative) Influenza B (RT-PCR) Negative (Negative) RSV (RT-PCR) Negative (Negative) SARS-CoV-2 RNA (RT-PCR) Negative (Negative) Group A Strep (PCR) Detected A (Negative) Discharge Plan Discharge Clinical Impression: Strep pharyngitis, Herpes genitalis in women Patient Disposition: Home, Self-Care Condition: Stable Instructions: Antibiotic Form, Genital Herpes Infection (ED), Strep Throat (ED) Additional Instructions: Please return to the ER with an worsening symptoms. Follow-up with primary care provider in the next 2-3 days. Take all medications as prescribed. Patient Language: Turkish Prescriptions: New acyclovir 800 mg tablet 800 mg PO BID Qty: 4 0RF hydrocortisone [Anusol-HC] 2.5 % cream with perineal applicator 1 applic RECTAL DAILY PRN (Reason: pain) Qty: 30 0RF amoxicillin 500 mg capsule 500 mg PO Q12H Qty: 20 0RF No Action hydrocodone-acetaminophen 5-325 mg Tablet 1 tablet PO Q3H PRN (Reason: Moderate Pain (4-6)) Qty: 12 0RF ibuprofen 600 mg Tablet 600 mg PO Q6H PRN (Reason: Cramping) Qty: 20 0RF hydrocodone-acetaminophen 5-325 mg tablet 1 tablet PO Q6H PRN (Reason: pain) Qty: 20 0RF ibuprofen 600 mg tablet 600 mg PO TID Qty: 20 0RF Follow-up/Referrals: PHYSICIAN,MAPPING EDITOR [Primary Care Provider] - Time of Disposition: 00:26
[2024-10-11] MEDS: IBUPROFEN 600 MG TABLET PO (23:42)
[2024-10-11] MEDS: ACETAMINOPHEN 500 MG TABLET 1000 MG PO (23:42)
[2024-10-11 23:43] VITALS: BP 113/59; PULSE 77; RESP 20; TEMP 36.2; O2SAT 99
[2024-10-12 00:35] VITALS: PULSE 91; RESP 18; O2SAT 98
--- OUTSIDE RECORDS SUMMARY | 2024-10-15 15:43 | XMS_ITS | Clinical Summary ---
Author Organization [facility] Address [address] [place] [address] Care Team Providers Care Anesthesia Technician Name Role Phone Unavailable Primary Care Provider Unavailabl e Source Comments [facility],non-owned Affiliates and Associated Physician Practices is amultiple site organization consisting of ambulatory clinics and hospital sitesin [place], [place], [place] and [place]. This disclosure is being madepursuant to the Care Everywhere program and may not contain all information available regarding this patient. Last updated 18.[facility] [employer] Allergies Active Allergy Reactions Criticality Noted Date Comments Amoxicillin Rash Medium 02/23/2021 Medications * Be aware that medications may not be up to date on this document. Alwaysverify current medications with the patient. Medication Sig Dispensed Refills Start Date End Date Status ferrous sulfate 325 (65 FE) MG tablet Take 325 mg by mouth daily with breakfast Active Vit-Fe Fumarate-FA ( VITAMIN) 28-0.8 MG tablet Take 1 tablet by mouth once daily Active plus iron (NATATAB) 29-1 MG tablet Take 1 (one) tablet by mouth once daily 90 tablet 4 03/06/2021 Active docusate sodium (COLACE) 100 MG capsule Take 1 (one) capsule by mouth once daily 30 capsule 3 03/06/2021 Active ferrous sulfate 325 (65 FE) MG tablet Take 1 (one) tablet by mouth once daily 30 tablet 3 03/06/2021 Active acetaminophen (TYLENOL) 500 MG capsule Take 2 (two) capsules by mouth every 6 hours as needed for Fever or Pain 56 capsule 03/06/2021 Active Active Problems Problem Noted Date Diagnosed Date care following vaginal delivery 03/06 premature rupture of membranes (PPROM) delivered, current hospitalization 02/24/2021 HSV-2 infection complicating Iron deficiency anemia during 02/25/20 21 Marijuana use 02/24/2021 Fifth 10/07/2020 Hx of section 10/07/2020 Encounter for ultrasound to assess interval grow th of fetus Resolved Problems Problem Noted Date Diagnosed Date Resolved Date Breech presentation 02/24/2021 03/02/20 21 Premature rupture of membranes 02/23/2021 02/24/2021 Encounter for ultrasound 10/07/2020 02/24/2021 Herpes 10/07/2020 02/24/2021 Immunizations Name Administration Dates Next Due MMR 03/06/2021 TDAP (7yrs+) 03/06/2021(Deferred: See Comments - Pt unsure is she received in . Will check with provider at PP visit.) Social History Tobacco Use Types Packs/Day Years Used Date Smoking Tobacco: Light Smoker Cigarettes Smokeless Tobacco: Never Tobacco Cessation:Ready to Q uit: Yes Alcohol Use Standard Drinks/Week Comments Not Currently 0 (1 standard drink = 0.6 oz pur e alcohol) Sex and Gender Information Value Date Recorded Sex Assigned at Not on file Gender Identity Not on file Sexual Orientation Not on file Last Filed Vital Signs Vital Sign Reading Time Taken Comments Blood Pressure 110/66 03/06/2021 9:15 AM CDT Pulse 69 03/06/2021 9:15 AM CDT Temperature 36.5 ??C (97.7 ??F) 03/06/2021 9:15 AM CD T Respiratory Rate 20 03/06/2021 9:15 AM CDT Oxygen Saturation 100% 03/06/2021 9:15 AM CDT Inhaled Oxygen Concentration - - Weight 79 kg (174 lb 1.6 oz) 02/23/2021 4:31 PM CDT Height 165.1 cm (5' 5 ) 02/23/2021 4:31 PM CDT Body Mass Index 28.97 02/23/2021 4:31 PM CDT Plan of Treatment Health Maintenance Due Date Last Done Comments PAP SMEAR 1993 PNEUMOCOCCAL VACCINE (1 of 2 - PCV) 1999 HIV SCREENING 2008 HEPATITIS C SCREENING 06/07/2011 DTAP/TDAP/TD VACCINES (1 - Tdap) 2012 HEPATITIS B VACCINE (1 of 3 - 19+ 3-dose series) 2012 DEPRESSION SCREENING 10/30/2023 COVID-19 VACCINE (1 - 2023-2 5 season) 2024 INFLUENZA VACCINE (#1) 2024 08/28/2020 ZOSTER VACCINE (1 of 2) 2043 HIB VACCINE Aged Out No longer eligi ble based on patient's age to complete this topic HPV VACCINE Aged Out No longer eligi ble based on patient's age to complete this topic MENINGOCOCCAL VACCINE Aged Out No andrew crissy eligible based on patient's age to complete this topic Advance Directives * Full Code (Latest Code Status on File) Date Activated Date Inactivated Comments 03/04/2021 8:48 AM 03/06/2021 2:13 PM * Full Code Date Activated Date Inactivated Comments 02/23/2021 4:38 PM 03/04/2021 8:48 AM
--- OUTSIDE RECORDS SUMMARY | 2024-10-15 15:43 | XMS_ITS | Encounter Summary ---
Author Organization [facility] Address [address] [place] [address] Care Team Providers Care Dental Appliance Mechanic Name Role Phone Unavailable Primary Care Provider Unavailabl e Reason for Visit * Reason Onset Date Comments Results 10/14/2020 Encounter Details Date Type Department Care Team (Late st Contact Info) Description 10/14/2020 Telephone [facility] [address] [place] [address] Yasmine Schaffer RN Results Social History Tobacco Use Types Packs/Day Years Used Date Smoking Tobacco: Never Assessed Comments Yes Sex and Gender Information Value Date Recorded Sex Assigned at Not on file Gender Identity Not on file Sexual Orientation Not on file documented as of this encounter Miscellaneous Notes * Telephone Encounter - Yasmine Schaffer RN - 10/14/2020 3:40 PM CST Patient called requesting results of NIPT. Patient identification was confirmed x2. Patient was notified of LOW RISK result on Panorama NIPT. Also, pt inquired of gender and confirmed gender of fetusto be male. Patient voiced understanding and had no further questions. 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
--- OUTSIDE RECORDS SUMMARY | 2024-10-15 15:43 | XMS_ITS | Encounter Summary ---
Author Organization [facility] Address [facility] [place] [address] Care Team Providers Care Entry Level Automotive Technician Name Role Phone Unavailable Primary Care Provider Unavailabl e Reason for Visit * Auth/Cert Specialty Diagnoses / Procedures Referred By Contac t Referred To Contact Referral ID Status Reason Start Date Expiration Date Visits Re quested Visits Authorized [id number] 1 1 Encounter Details Date Type Department Care Team (Latest Contact Info) Description 02/23/2021 4:20 PM CDT - 03/06/2021 1:00 PM CDT Hospital Encounter HC 6W MOTHER/BABY [address] [place] [address] Fabrice Solis MD [address] [place] [address] 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 No 02/23/2021 Is person blind or have serious difficulty seein g? No 02/23/2021 Does person have serious dif ficulty walking/climbing stairs? No 02/23/2021 Does person have difficulty dressing/bathing? No 02/23/2021 Does person have difficulty doing errands alone? No 02/23/2021 Cognitive Status Response Date of Assessm ent Does person have difficulty concentrating/remembering/making decisions? No 02/23/2021 documented as of this encounter Discharge Summaries * Phil Umana MD - 03/06/2021 1:00 PM CDT Images from the original note were not included. temporary help agency referral clerk Discharge Summary 03/19/2021, 8:28 AM Date of Admission: 02/23/2021 Date of Discharge: 03/06/2021 Admission Diagnosis: 25 year old at 32w5d gestation with 1. PPROM 2. History of 1 prior CS 3. HSV 4. Anemia 5. Anxiety Discharge Diagnosis: 25 year old with 1. Same as above plus 2. 3. Status post Spontaneous Vaginal Delivery Service: Maternal Medicine Consults: Social work and neonatology consults HPI: Oneida Luis is a 25 year old at 32w5d gestation whose care was with Dr. Blackburn. She presented with complaints of loss of fluid at 1130 am. Rupture happened when she was standingdoing her hair and makeup. Had some vaginal spotting and her confirmed she was leaking fluid. Hasn't felt much leaking since. Feeling back and abdominal pain. Contractions q6mins. was complicated by: Patient Active Problem List: Fifth Hx of section premature rupture of membranes (PPROM) delivered, current hospitalization HSV-2 infection complicating Iron deficiency anemia during Marijuana use Encounter for ultrasound to assess interval growth of fetus care following vaginal delivery Hospital Course: Patient was admitted for management of PPROM. She received ancs 02/23- and latency antibiotics, aswell as magnesium for tocolysis. She was given ANCS on , and magnesium was discontinued. NICU was consulted. EFW 2092 g (44%), and fetus was breech on 02/24. Patient remained stable until planned delivery at 34 weeks. Fetus was vertex on 03/01, and remained vertex on day of IOL, so she desired TOLAC. Her BLE was negative. She was induced using standard methods with pitocin and labored to complete dilation. Delivery: For full details of delivery, please refer to operative note or delivery summary. Delivery Type: Vaginal after Section () Estimated Blood Loss: 150.00See delivery summary Anesthesia/Analgesia: See delivery summary Information for the patient's : Shaquille Luis [[id number]] Date of 03/04/2021 Time of : 10:41 PM Sex: Male Weight: 2214 g (4 lb 14.1 oz) (1 min): 9 (5 min): 9 (10 min): Course: Her course was uncomplicated except for anxiety. Mood was stable without medications. She met all milestones and was stable for discharge.. Patient is breast feeding. She is undecided for contraception. Results: Recent Labs Component Name 03/04/21 0733 ABORH B POS Recent Labs Component Name 03/05/21 0714 03/04/21 0733 02/26/21 1514 02/24/21 0145 WBC - 11.6* 10.1 10.5 HGB 11.1* 10.7* 11.3* 10.3* HCT 34.4* 32.4* 34.9* 31.6* PLTCOUNT - 251 271 246 Discharge Vitals: BP 110/66 Pulse 69 Temp 97.7 ??F (36.5 ??C) (Oral) Resp 20 Ht 5' 5 (1.651 m) Wt 174 lb 1.6 oz (79 kg) SpO2 100% BMI 28.97 kg/m2 Disposition: Home on day # 2. Follow-up: with high risk clinic at 6 week(s) Discharge Instructions: Continue these medications at home: Current Discharge Medication List START taking these medications Instructions Authorizing Provider acetaminophen 500 MG capsule Commonly known as: Tylenol Quantity Dispensed: 56 capsule Notes to patient: Most recent dose given 0920 AM 03/06/2021. Take 2 (two) capsules by mouth every 6 hours as needed for Fever or Pain Phil Umana MD docusate sodium 100 MG capsule Commonly known as: Colace Quantity Dispensed: 30 capsule Take 1 (one) capsule by mouth once daily Phil Umana MD ibuprofen 600 MG tablet Commonly known as: Motrin Quantity Dispensed: 56 tablet Notes to patient: Most recent dose given 11:00 AM 03/06/21. Take 1 (one) tablet by mouth every 6 hours as needed for Pain Phil Umana MD plus iron 29-1 MG tablet Quantity Dispensed: 90 tablet Take 1 (one) tablet by mouth once daily Phil Umana MD CONTINUE taking these medications which have CHANGED Instructions Authorizing Provider * ferrous sulfate 325 (65 FE) MG tablet What changed: You were already taking a medication with the same name, and this prescription was added. Make sure you understand how and when to take each. Quantity Dispensed: 30 tablet Take 1 (one) tablet by mouth once daily Phil Umana MD * ferrous sulfate 325 (65 FE) MG tablet What changed: Another medication with the same name was added. Make sure you understand how and when to take each. Take 325 mg by mouth daily with breakfast * This list has 2 medication(s) that are the same as other medications prescribed for you. Read thedirections carefully, and ask your doctor or other care provider to review them with you. CONTINUE taking these medications which have NOT CHANGED Instructions Authorizing Provider vitamin 28-0.8 MG tablet Take 1 tablet by mouth once daily Discharge Procedure Orders Why you were hospitalized Order Specific Question Answer Comments Your discharge diagnosis is: (spontaneous vaginal delivery) [075881] No special diet needed Resume your normal home diet as tolerated. Eat well-balanced meals that include foods from all of the food groups. Drink plenty of fluids It is important that you stay well hydrated. You should drink at least eight to ten 8-ounce glassesof water per day. Nothing per vagina For [address] While on narcotics and until comfortably able to slam on brakes. No heavy lifting Do not lift anything heavier than your baby and their car seat for 6 weeks. When to call your provider and patient information Depression (PPD): This is a type of depression that occurs after childbirth. PPD can occur as early as one week up toone year after giving . Signs could include: -Thinking of hurting yourself or your baby -Feeling out of control, unable to care for self or baby -Feeling depressed or sad most of the day every day -Having trouble sleeping or sleeping too much -Having trouble bonding with your baby Call 911 or go to the nearest emergency room if you feel you might harm yourself or your baby. Callclinic immediately for other signs of depression (sadness, withdrawn, difficulty coping with parenting) Venous Thromboembolism: Development of a blood clot usually in your leg (calf area). Signs can include: -Leg pain, tender to touch, burning or redness, particularly in the calf area -Swelling of one leg more than the other Infection: An infection is an invasion of bacteria or viruses that enter and spread through your body, making you ill. Signs can include: -Temp>/= 100.4 F (>/= 38 C) -Bad smelling blood or discharge from vagina -Increase in redness or discharge from episiotomy or open wound not healing Call clinic immediately for above signs. If symptoms worsen or no response from provider/clinic, call 911 or go to the nearest emergency room. Preeclampsia and High Blood Pressure: Hypertension is when your blood pressure is much higher than it should be. A severe and constant headache that does not respond to over the counter medications could be something more serious. Preeclampsia is a complication of that includes high blood pressures and signs of damage to other organs. Eclampsia is the compulsive phase of preeclampsia, characterized by seizures. Worrisome signs include: -Severe constant headache that does not respond to pain medications -Changes in vision, seeing spots or flashing lights -Pain in the upper right abdominal area -Swelling of face, hands and or legs more than what you would expect -Changes in level of consciousness Call 911 for seizures. Call the clinic immediately for any other signs. If symptoms worsen or no response from clinic, call 911 or go to the nearest emergency room. Obstetric Hemorrhage: Obstetric hemorrhage is when you have an excessive amount of bleeding after you have delivered yourbaby. Signs include: -Bleeding through more than 1 sanitary pad per hour -Passing 1 or more clots the size of an egg or bigger -Character of clots goes from dark red/brown with clots to bright red bleeding Call clinic immediately for signs of hemorrhage. If symptoms worsen, call 911 or go to the nearest emergency room. Cardiac (Heart) Disease: Cardiac disease is when your heart is not working well. Signs can include: -Shortness of breath, or difficulty breathing -Feeling that your heart is racing -Chest pain or pressure You must obtain immediate care by calling 911 or going to the nearest emergency room RIGHT AWAY. Shower and bathing instructions May shower any time. No swimming pools or bathtubs for 4-6 weeks. For relief of pain Take your Ibuprofen (motrin) 600mg every 6 hours for relief of pain or discomfort. If you need morehelp with pain, use acetaminophen (tylenol) 1000mg every 6 hours, staggering these pills so that you take something every 3 hours. Stool softeners Take over the counter colace for relief of difficult bowel movements. For relief of constipation Take Miralax ( 1 cap daily mixed with clear liquid) or dulcolax for relief of constipation. For relief of itching Take over the counter Benadryl for relief of itching. [id number] medication Use an abdominal binder or belly band for comfort as needed, and use compression stockings (available at pharmacies or online at stores like [employer]) for leg swelling. Follow up with provider Order Specific Question Answer Comments Follow Up Instructions: in 2 weeks with high risk clinic at [address] [place] [address], in Maternal Medicine suite on . Websphere Commerce Consultant will call with appointment Phil Umana MD 03/19/2021 8:28 AM Associated attestation - Elisa Krueger MD - 03/26/2021 6:47 PM CDT [facility] STAFF I have reviewed Oneida Luis who is a 25 year old with the OB resident team. We have discussed her recent clinical course. Oneida is now PPD#2 s/p a at 34w0d that followed IOL s/p PPROM. She was not in her room during my rounds but is doing well per staff report. The plan is for dscharge home. Follow up for a routine visit in ~6 weeks. Elisa Krueger MD, MPH documented in this encounter Discharge Instructions * Discharge Instructions* Sabrina Francisco RN - 03/06/2021 9:43 AM CDT DELIVERED MOTHER DISCHARGE INSTRUCTIONS Refer to the Booklet given during your stay for more information. Please contact your bacteriologist pharmaceutical for the followin. Any burning or itching when urinating. . 2. Any significant increase or change in color or odor of vaginal discharge and/or any pus drainingfrom vaginal area. 3. Any significant increase in pain, tenderness, or redness in vaginal area. 4. Any increased vaginal bleeding that may contain clots. 5. Temperature greater than 101 degrees or as instructed by your care provider. 6. Any pus or blood draining from nipples. Remember to collect all your belongings kept at the bedside, for example: your cell phone and cell phone cane splicer. PLEASE REMEMBER: 1. Always place your infant on his/her back to sleep. 2. Always use a car safety seat when transporting your child. documented in this encounter Medications at Time of Discharge Medication Sig Dispensed Refills Start Date End Date acetaminophen (TYLENOL) 500 MG capsule Take 2 (two) capsules by mouth every 6 hours as needed for Fever or Pain 56 capsule 03/06/2021 docusate sodium (COLACE) 100 MG capsule Take 1 (one) capsule by mouth once daily 30 capsule 3 03/06/2021 ferrous sulfate 325 (65 FE) MG tablet Take 1 (one) tablet by mouth once daily 30 tablet 3 03/06/2021 ferrous sulfate 325 (65 FE) MG tablet Take 325 mg by mouth daily with breakfast plus iron (NATATAB) 29-1 MG tablet Take 1 (one) tablet by mouth once daily 90 tablet 4 03/06/2021 Vit-Fe Fumarate-FA ( VITAMIN) 28-0.8 MG tablet Take 1 tablet by mouth once daily ibuprofen (MOTRIN) 600 MG tablet Take 1 (one) tablet by mouth every 6 hours as needed for Pain 56 tablet 1 03/06/2021 03/20/2021 documented as of this encounter Progress Notes * Sabrina Francisco RN - 03/06/2021 12:50 PM CDT Discharge order received. Oneida's VSS. Fundus and lochia WNL. Voiding spontaneously. Ambulating ad gokul. Tolerating regular diet. Reports adequate pain control with motrin and tylenol. Reviewed discharge instructions, follow-up, and prescriptions - verbal and written information given. Oneida verbalized understanding. Midline IV removed for discharge. Oneida tolerated well, pressure held, no bleeding noted. Discharged home. infant in NICU and pumping. Follow-up - High-risk clinic in 2 weeks - college or university faculty member to call with appt. * Sabrina Francisco RN - 03/06/2021 9:37 AM CDT Problem: Goal: Status is maintained within the expected range. Outcome: Completed Problem: Emotional Well-Being Goal: Patient participates in decision-making and choices for care. Outcome: Completed Goal: Parent- bonding occurs Outcome: Completed * Phil Umana MD - 03/06/2021 8:07 AM CDT R1 OB Post- Note 03/05/2021, 8:07 AM Subjective: Patient is doing well. Pain controlled. Lochia is medium. She reports flatus passed, tolerating normal diet. She denies headache, fever, chest pain, shortness of breath, and leg pain. She has ambulated and denies lightheadedness. Meraz is absent. Patient is voiding without difficulty. Objective: Temp (36hrs) Max:98.7 ??F (37.1 ??C) Vitals: 03/05/21 0514 03/05/21 0930 03/05/21 1845 03/06/21 0125 BP: 112/64 106/71 106/65 122/56 Pulse: 77 73 73 Resp: 18 18 18 18 Temp: 97.8 ??F (36.6 ??C) 97.5 ??F (36.4 ??C) 97.6 ??F (36.4 ??C) 97.6 ??F (36.4 ??C) SpO2: 100% 100% 100% 100% Weight: Height: Intake/Output Summary (Last 24 hours) at 03/06/2021 0807 Last data filed at 03/05/2021 1437 Gross per 24 hour Intake 10 ml Output -- Net 10 ml No data found. PE: General: Alert, cooperative in no acute distress Lungs: Clear to auscultation bilaterally Heart: Regular rate and rhythm, no murmurs/rubs/gallops Abdomen: BSx4, abdomen soft, appropriately tender; fundus firm below umbilicus Extremities: No calf tenderness Data: Recent Labs Component Name 03/05/21 0714 03/04/21 0733 02/26/21 1514 02/24/21 0145 WBC - 11.6* 10.1 10.5 HGB 11.1* 10.7* 11.3* 10.3* HCT 34.4* 32.4* 34.9* 31.6* PLTCOUNT - 251 271 246 Recent Labs Component Name 03/04/21 0733 ABORH B POS Assessment/Plan: 25 year old , s/p vaginal delivery- , PPD# 2 1. complicated by: 1. CSx1 2. Anxiety 1. No meds 2. Mood stable 3. MJ use 1. UDS+ on admission 4. ABDIRAHMAN 1. See below 5. HSV 1. BLE neg 2. AFVSS 3. Pain: controlled with current meds 4. : Voiding without issues 5. GI: tolerating normal diet, positive flatus. 6. Br/Javier/Contraception: breast feeding/undecided 7. Hematologic- pre-delivery 10.7 --> post-delivery 11.1 1. Continue PO iron 8. DVT prophylaxis 1. BMI Body mass index is 28.97 kg/m??. 2. No calf tenderness, no calf edema on exam 3. Continue to encourage frequent ambulation 4. Continue SCDs while in bed 9. B+/I/-/-, HIV NR 10. Baby boy, doing well 11. Dispo: continue routine care, discharge today after seen by attending The patient had a male infant, and does desire circumcision. Phil Umana MD 03/05/2021 8:07 AM Associated attestation - Elisa Krueger MD - 03/06/2021 1:44 PM CDT [facility] STAFF I have reviewed Oneida Luis who is a 25 year old with the OB resident team. We have discussed her recent clinical course. Oneida is now PPD#2 s/p a at 34w0d that followed IOL s/p PPROM. She was not in her room during my rounds but is doing well per staff report. Exam: BP 110/66 Pulse 69 Temp 97.7 ??F (36.5 ??C) (Oral) Resp 20 Ht 5' 5 (1.651 m) Wt 174 lb 1.6 oz (79 kg) SpO2 100% BMI 28.97 kg/m2 Tmax 97.7 Recent Labs Component Name 03/05/21 0714 03/04/21 0733 02/26/21 1514 02/24/21 0145 WBC - 11.6* 10.1 10.5 RBC - 3.75* 3.96 3.65* HGB 11.1* 10.7* 11.3* 10.3* HCT 34.4* 32.4* 34.9* 31.6* MCV - 86.4 88.1 86.6 MCHC - 33.0 32.4 32.6 PLTCOUNT - 251 271 246 NEUTPCT - 64.1 64.7 86.9* LYMPHPCT - 22.9 23.4 10.6* BASOPHILPCT - 0.3 0.1 0.0 GRANSIMMPCT - 0.9 0.9 0.6 NEUTABS - 7.45* 6.57 9.14* LYMPHABS - 2.67 2.37 1.12 BASOABS - 0.04 0.01 0.00 I have the following additions/revision to the plan: Discharge home. Follow up for a routine visit in ~6 weeks. Elisa Krueger MD, MPH * Brie Ronquillo LPN - 03/06/2021 5:06 AM CDT Vital signs stable. Patient has been to the [facility] to visit the baby. Pain controlled with motrin,tylenol.Flexeril and toradol. Patient wears sequentials while in bed.. Midline catheter remains in place. No redness or swelling at site. * Brie Ronquillo LPN - 03/06/2021 1:55 AM CDT Problem: Goal: Status is maintained within the expected range. Outcome: Progressing Problem: Emotional Well-Being Goal: Patient participates in decision-making and choices for care. Outcome: Progressing Problem: Emotional Well-Being Goal: Parent- bonding occurs Outcome: Progressing * Sabrina Francisco RN - 03/05/2021 7:02 PM CDT Call to Dr Barnett to inquire about appropriate timing of midline IV catheter removal since lineis currently saline locked Per resident, midline catheter to remain in place until tomorrow before discharge in case IV access is indicated. * Sabrina Farncisco RN - 03/05/2021 5:13 PM CDT Shift summary: Oneida's VSS. Fundus and lochia WNL. Voiding spontaneously. Tolerating regular diet. Ambulating ad gokul. Reports adequate pain control with scheduled motrin and tylenol, 1x flexeril given for perineal pressure. and pumping for in NICU. Took a shower with CHG due to midline IV in place. Call light in reach. * Sabrina Francisco RN - 03/05/2021 2:27 PM CDT Problem: Goal: Status is maintained within the expected range. Outcome: Progressing Problem: Emotional Well-Being Goal: Patient participates in decision-making and choices for care. Outcome: Progressing Goal: Parent- bonding occurs Outcome: Progressing * Thom Hali IngramTOSHIA-PRESS OPERATOR IN[employer]ANT [employer] - 03/05/2021 10:32 AM CDT OPERATIONS GENERAL AGENT OB Progress Note Subjective: Oneida Luis Is now PPD#1 after a successful after an IOL for PPROM at 34 weeks. Reports feeling discomfort with her cramping. Sleepy during encounter. Pain controlled with po meds. Ambulating. Voiding. Lochia light. Denies nausea, vomiting, headache, fever, chest pain, shortness of breath,lightheadedness, and leg pain. Pump feeding. Objective: Temp (36hrs) Max:98.7 ??F (37.1 ??C) Vitals: 03/05/21 0041 03/05/21 0055 03/05/21 0150 03/05/21 0514 BP: 123/55 120/56 121/57 112/64 Pulse: 77 Resp: 16 18 Temp: 98.2 ??F (36.8 ??C) 98.7 ??F (37.1 ??C) 97.8 ??F (36.6 ??C) SpO2: 98% 100% Weight: Height: Systolic (30hrs), Av , Min:97 , Max:129 Diastolic (30hrs), Av, Min:55, Max:75 Intake/Output Summary (Last 24 hours) at 03/05/2021 1032 Last data filed at 03/05/2021 0514 Gross per 24 hour Intake 1722.71 ml Output 2475 ml Net -752.29 ml Patient Active Problem List: Fifth Hx of section premature rupture of membranes (PPROM) with unknown onset of labor HSV-2 infection complicating Iron deficiency anemia during Marijuana use Encounter for ultrasound to assess interval growth of fetus Exam: General: alert, cooperative, no distress Lungs: non-labored respirations Abdomen: soft; appropriately tender Fundus: firm below the umbilicus Extremities: no edema, no calf tenderness Data: Recent Labs Component Name 03/05/21 0714 03/04/21 0733 02/26/21 1514 02/24/21 0145 WBC - 11.6* 10.1 10.5 HGB 11.1* 10.7* 11.3* 10.3* HCT 34.4* 32.4* 34.9* 31.6* PLTCOUNT - 251 271 246 Blood Type (Manually Reproduced): B RH (Manually Reproduced): Positive Syphilis Serology (Manually Reproduced): Negative HIV (Manually Reproduced): Negative Hepatitis B Surface Antigen (Manually Reproduced): Negative Rubella Status ( Manually Reproduced): (!) Non-Immune Assessment/Plan: 25 year oldyo , s/p induced vaginal delivery after section, PPD# 1 1. complicated by: 1. PPROM 1. Occurred on 02/23 2. H/o c/s with G3 for HSV outbreak 3. H/o HSV 1. BLE negative prior to her IOL 2. Was on suppression meds 4. MJ use 5. Rubella NI 6. Anemia 2. AFVSS 3. /GI: urinary output adequate; voiding without difficulty; tolerating regular diet 4. Br/Javier/Contraception: The patient is Pump feeding and will need to discuss contraception prior todischarge. 5. Hematologic: + anemia, no dizziness or lightheadedness 1. PO Iron 6. boy infant, in NICU doing well per patient 7. B+/NI/-/- 1. MMR ordered 8. Disposition: anticipate discharge home tomorrow, on day 2. To follow up within 4-6 weeks. Hali Tomas APRN-STEPHIE 03/05/2021 10:32 AM * Phil Umana MD - 03/05/2021 6:24 AM CDT R1 OB Post- Note 03/05/2021, 6:24 AM Subjective: Patient is doing well. Pain controlled. Lochia is medium. She reports flatus passed, tolerating normal diet. She denies headache, fever, chest pain, shortness of breath, and leg pain. She has ambulated and denies lightheadedness. Meraz is absent. Patient is voiding without difficulty. Objective: Temp (36hrs) Max:98.7 ??F (37.1 ??C) Vitals: 03/05/21 0041 03/05/21 0055 03/05/21 0150 03/05/21 0514 BP: 123/55 120/56 121/57 112/64 Pulse: 77 Resp: 16 18 Temp: 98.2 ??F (36.8 ??C) 98.7 ??F (37.1 ??C) 97.8 ??F (36.6 ??C) SpO2: 98% 100% Weight: Height: Intake/Output Summary (Last 24 hours) at 03/05/2021 0624 Last data filed at 03/05/2021 0514 Gross per 24 hour Intake 1863.2 ml Output 2575 ml Net -711.8 ml No data found. PE: General: Alert, cooperative in no acute distress Lungs: Clear to auscultation bilaterally Heart: Regular rate and rhythm, no murmurs/rubs/gallops Abdomen: BSx4, abdomen soft, appropriately tender; fundus firm below umbilicus Extremities: No calf tenderness Data: Recent Labs Component Name 03/04/21 0733 02/26/21 1514 02/24/21 0145 WBC 11.6* 10.1 10.5 HGB 10.7* 11.3* 10.3* HCT 32.4* 34.9* 31.6* PLTCOUNT 251 271 246 Recent Labs Component Name 03/04/21 0733 ABORH B POS Assessment/Plan: 25 year old , s/p vaginal delivery- , PPD# 1 1. complicated by: 1. CSx1 2. Anxiety 1. No meds 2. Mood stable 3. MJ use 1. UDS+ on admission 4. ABDIRAHMAN 1. See below 5. HSV 1. BLE neg 2. AFVSS 3. Pain: controlled with current meds 4. : Voiding without issues 5. GI: tolerating normal diet, positive flatus. 6. Br/Javier/Contraception: breast feeding/undecided 7. Hematologic- pre-delivery 10.7 --> post-delivery pending 1. Continue PO iron 8. DVT prophylaxis 1. BMI Body mass index is 28.97 kg/m??. 2. No calf tenderness, no calf edema on exam 3. Continue to encourage frequent ambulation 4. Continue SCDs while in bed 9. B+/I/-/-, HIV NR 10. Baby boy, doing well 11. Dispo: continue routine care, discharge PPD 2-3 after seen by attending The patient had a male infant, and does desire circumcision. Phil Umana MD 03/05/2021 6:24 AM * Sarah Barraza RN - 03/05/2021 1:52 AM CDT Problem: Goal: Status is maintained within the expected range. Outcome: Progressing Problem: Emotional Well-Being Goal: Patient participates in decision-making and choices for care. Outcome: Progressing Goal: Parent- bonding occurs Outcome: Progressing * Margareth Armstrong RN - 03/05/2021 1:13 AM CDT Images from the original note were not included. Patient Name: Oneida Luis Patient Age: [age] year old Today's Date: 03/05/2021 DELIVERY SUMMARY Estimated Date of Delivery: 04/15/21 Delivery Summary Patient Information Patient Name Oneida Luis ([id number]) Legal Sex Female OB History 5 Para 4 Term 3 1 AB 1 Living 4 SAB 1 TAB Ectopic Multiple 0 Live Births 4 1 Outcome: SAB Date: 10/2009 Delivery: SAB 2 Outcome: Term Date: 03/19/13 GA: 40w0d Sex: M Delivery: Vag-Spont Living: RICHARD Weight: 3600 g (7 lb 15 oz) 3 Outcome: Term Date: 02/19/16 GA: 40w0d Sex: M Delivery: Vag-Spont Living: RICHARD Weight: 2977 g (6 lb 9 oz) 4 Outcome: Term Date: 06/14/18 GA: 40w0d Sex: M Delivery: CS-Unspec Living: RICHARD Weight: 2778 g (6 lb 2 oz) 5 Outcome: Date: 03/04/21 GA: 34w0d Sex: M Delivery: Vag-Spont Living: RICHARD Name: MATTHEW LUIS Labor/2nd: / 0h 13m Weight: 2214 g (4 lb 14.1 oz) Anes: Epidural, IV Narcotic PTL: Y A1: 9 A5: 9 Location: [facility] Delivering Clinician: Chelsie Astorga MD Transcribed Labs Row Name 03/04/21 1316 02/24/21 2310 RH (Manually Reproduced) -- Positive Blood Type (Manually Reproduced) -- B Syphilis Serology (Manually Reproduced) -- Negative HIV (Manually Reproduced) -- Negative Date of HIV Lab -- 08/28/20 Hepatitis B Surface Antigen (Manually Reproduced) -- Negative Rubella Status ( Manually Reproduced) -- (!) Non-Immune Beta Strep Culture (Manually Reproduced) Negative -- Labor Length 2nd stage: 0h 13m 3rd stage: 0h 03m Blood Loss Admission (Current) from 02/23/20[facility] in [facility] 5 LDR Estimated Blood Loss 150 mL [Filed from Delivery Summary] Quantitated Blood Loss 50 ml Venous Cord Blood Gas Results pH PCO2 PO2 HCO3 BE O2 Sat 03/04/21 2252 7.43 Comment: H 35 29 23 Comment: H -0.6 56 Arterial Cord Blood Gas Results pH pCO2 pO2 HCO3 BE O2 Sat 03/04/21 2252 7.30 62 Comment: H 16 29.7 Comment: H 1.4 18 Matthew Luis [[id number]] Patient Information Patient Name Matthew Luis ([id number]) Legal Sex Male Anesthesia Method: Epidural, IV Narcotic Labor Events labor?: Yes steroids: Full Course GBS Status: negative Antibiotic: clindamycin, other Number of Antibiotic Doses: More than 5 Rupture Date: 03/04/21 Time: 2227 Rupture type: Artificial, Premature, Bulging, Ruptured, Patient Denies Leaking Fluid color: Clear, [employer] Fluid odor: Normal Odor Induction: Oxytocin, AROM Indications for induction: Premature ROM Labor complications: None Delivery Details Forceps attempted?: No Vacuum extractor attempted?: No Shoulder dystocia present?: No Presentation: Vertex Delivery (Maternal) Episiotomy: None Perineal lacerations: None Repair suture: None Placenta Date/time: 03/04/20212243 Removal: Spontaneous Appearance: Intact Other Delivery Procedures/Provider Comments Procedures: None Comments: R3 Physician Delivery Note 03/04/2021 11:08 PM 5, Para 3, 1, Estimated Date of Delivery: 04/15/21 Gestational Age Complication: PPROM @ 33wks, h/o CS x1, HSV with negative bright-light exam Labor: induced Anesthesia: epidural Episiotomy/Laceration/Repair: none Delivery: spontaneous Position: Straight OA Information for the patient's : Luis, Baby Boy Oneida [[id number]] Date of 03/04/2021 Time of : 10:41 PM Sex: Male Weight: 2214 g (4 lb 14.1 oz) (1 min): 9 (5 min): 9 (10 min): Cord Blood Gas, Arterial: pH 7.3, Base excess 1.4 Cord Blood Gas, Venous: pH 7.43, Base excess -0.6 Placenta: spontaneous EBL: 150cc's Complications: None Notes: Called to room, patient complete and +1 with BBOW. AROM CF. Maternal pushing efforts excellent. called to room. Head spontaneously delivered. Anterior and posterior shoulders atraumatically delivered with gentle traction, followed by the trunk and lower extremities. Baby placed on mother's chest for skin to skin contact. Cord doubly clamped and cut after delayed cord clamping of 1min. Segment of the cord collected for gases. Cord blood collected. Placenta delivered by controlled cordtraction intact with a 3 VC. Bimanual exam performed and uterus swept of clots. Normal uterine tonewith oxytocin infusion. Lacerations repaired as noted above. Cervix visualized with right angle andnoted to be intact. Rectum and vagina clear of sponges. Placenta normal in appearance and not sent to pathology. and patient stable in the delivery room with nursing present. Comments: Dr. Astorga present for delivery. Liliana Loja MD 03/04/2021 11:08 PM Delivery - Physician I was present at delivery (physician name): Gauri Loja Counts Initial count personnel: Cesar ACOSTA Initial count verified by: Mahogany ARMSTRONGRN [employer] Lap Pads Sponges Initial counts 0 15 6 0 Added to counts 0 0 0 0 Final counts 0 15 6 0 Final count personnel: DR. LOJA Final count verified by: Mahogany YOST RN Vaginal packing left in?: Neg Accurate final count?: Yes Delivery ([place]) Delivery Date: 03/04/21 Delivery Time: 10:41 PM Delivery type: Vaginal, Spontaneous Apgars Living status: Living Apgars: 1 min.: 5 min.: 10 min.: 15 min.: 20 min.: Skin color: 1 1 Heart rate: 2 2 Reflex irritability: 2 2 Muscle tone: 2 2 Respiratory effort: 2 2 Total: 9 9 Apgars assigned by: Bill BURGOS MD Delivery Stabilization Equipment Checked by: NICU staff Vigorous at ? (Heart rate greater than 100, normal respirations and normal muscle tone): Yes Suction Method: None Secretions (Amount in Comment): Clear, Thin Requires more than warming, stimulation, and suction?: No Intubation Performed?: No Chest Compressions: No Thermoregulation Support: Cap, Overhead Warmer, Warm Blankets, Prewarmed Transporter Cord Complications: None Vessels: 3 Vessels Delayed cord clamping?: Yes Time delayed: 60 seconds or greater Cord blood disposition: Lab Gases sent?: Yes, Venous, Arterial Stem cell collection (by )?: No Measurements Weight: 2214 g Pounds and Ounces: 4 lb 14.1 oz Length: 18.11 Head circumference: 12.99 Chest circumference: Infant Disposition: NICU III Feeding and Elimination Mother's Feeding Choice During Stay ( Core Measure PC05): Human Milk Voided in Delivery Room?: No Stooled in Delivery Room?: No . Associated attestation - Chelsie Astorga MD - 03/05/2021 8:07 AM CDT OBGYN ATTENDING VAGINAL DELIVERY ATTESTATION I was present in the delivery suite and directly supervised the uncomplicated spontaneous vaginal delivery of a viable male infant. I was present for the entirety of the procedure including delivery of placenta. No repair. I have reviewed and agree with resident's documentation. Chelsie Astorga MD 03/05/2021 8:07 AM * Liliana Loja MD - 03/04/2021 7:27 PM CDT R3 Progress Note IOL / TOLAC for PPROM @ 34wks. Co-morbidities: - , pelvis proven to [id number], GBS neg, 02/24 2092g/44% - PPROM @ 33wks - H/o LTCS x1: G3 for HSV outbreak, consented for TOLAC - HSV: Valtrex, no recent outbreaks, BLE neg EFM: Cat 1, ctx q3min Cervix: 3-4/50/-2, last checked at 1630 by PIO Foley Labor course: PPROM on 02/23. Pitocin @ 12mU/min. Plan: Titrate pitocin. Liliana Loja MD 03/04/2021 7:50 PM * Mirela Hernandez MD - 03/04/2021 5:00 PM CDT L&D Progress Note Labor update note. Patient is more comfortable with epidural in place. Objective Patient Vitals for the past 6 hrs: Temp Resp BP BP Method 03/04/21 1626 -- -- 129/60 -- 03/04/21 1609 -- -- 127/72 -- 03/04/21 1606 -- -- 119/63 -- 03/04/21 1603 -- -- 117/71 -- 03/04/21 1600 -- 18 115/70 -- 03/04/21 1555 -- -- 124/67 -- 03/04/21 1542 97.3 ??F (36.3 ??C) 18 -- -- 03/04/21 1330 98 ??F (36.7 ??C) -- -- -- 03/04/21 1240 -- 16 100/59 Automatic 03/04/21 1101 98 ??F (36.7 ??C) 20 -- -- Assessment FHR: baseline 130 bpm, moderate variability, reactive, late deceleration x1 and variable deceleration x 1 > 2 hours ago [place]: q2 min Cervical Exam Dilation (cm): 3.5 Effacement: 50 Station: -2 A/P 25 year old at 34w0d with: IOL/TOLAC for PPROM - Cervix as above - Last cervical exam at 1702 - Pitocin at 10 Moe/min - IUPC in place - FWB currently reassuring ?? Other medical conditions: HSV (BLE neg), anemia, MJ use Continue to titrate pitocin per protocol Mirela Hernandez MD 03/04/2021 5:00 PM * Phil Umana MD - 03/04/2021 1:12 PM CDT R1 Update Note IOL for PPROM at 34w0d Cervix 2//-3 NST: baseline 135 bpm, moderate variability, reactive, one late decelerations with return to baseline and reacticity [place]: palpating every 4-5min Unable to fully assess contractions with TOCO. In to place IUPC. Pitocin at 12, continue titration per protocol. Phil Umana MD 03/04/2021 1:17 PM * Osiel Elizondo - 03/04/2021 12:01 PM CDT MS3 Labor Progress Note Subjective: Went to see patient for: Assessment of labor. She is doing well but has concerns about spontaneously going into labor. Objective: Vitals: 03/04/21 0805 03/04/21 0857 03/04/21 0908 03/04/21 1101 BP: 108/64 108/61 Pulse: 78 Resp: 18 16 20 Temp: 98.2 ??F (36.8 ??C) 98.2 ??F (36.8 ??C) 98 ??F (36.7 ??C) SpO2: 100% Weight: Height: EFM: 145 baseline, moderate variability, reactive, no decelerations [place]: minimal ctx Cervical exam Dilation (cm): 1.5 Effacement: 25 Station: -2 Assessment: 25 year old @ 34 w 0 d with PMHx significant for anxiety and HSV and her is complicated by MJ use and PPROM. IOL/TOLAC for PPROM. - Cervix: 1.5/25/-2 - Current heart tracing Category 1 - Labor course: TOLAC. Pitocin @ 12 mU/min. Co-morbidities: - HSV: BLE eng, asymptomatic - Anemia s/p venofer - MJ use Plan: Continue pitocin, monitor her CBC for anemia, compliant with valtrex for HSV, SW PP for MJ use Osiel Elizondo 03/04/2021 12:02 PM Associated attestation - Mirela Hernandez MD - 03/04/2021 3:52 PM CDT This note is for the educational benefit of the medical student. Please see resident note for treatment details. Mirela Hernandez MD 03/04/2021 3:52 PM * Mirela Hernandez MD - 03/04/2021 9:11 AM CDT L&D Progress Note Welcomed patient to labor and delivery. She is overall doing well. She reports some anxiety with the labor process. She has no complaints. She denies fevers, chills, SOB, CP, N/V, dysuria, change in bowel habits, pain, or change in color or smell of fluid. She reports irregular contractions and shefeels the baby move. Objective Patient Vitals for the past 6 hrs: Temp Pulse Resp BP BP Method 03/04/21 0908 98.2 ??F (36.8 ??C) -- -- -- -- 03/04/21 0857 -- -- 16 108/61 Automatic 03/04/21 0805 98.2 ??F (36.8 ??C) 78 18 108/64 Automatic 03/04/21 0505 98.2 ??F (36.8 ??C) -- -- -- -- Assessment FHR: baseline 145 bpm, moderate variability, reactive, no decelerations [place]: uterine irritability Cervical Exam Dilation (cm): 1.5 Effacement: 25 Station: -2 A/P 25 year old at 34w0d with: IOL/TOLAC for PPROM - Last cervical exam 02/25 1 - Rechecked cervix for start of induction, exam as above - TOLAC consent form signed on 03/[address] Collado - Presentation: vertex - Abiel's: 7 lbs - EFW 2092g (44%), AC 74% on 02/24 - FWB reassuring HSV - BLE negative, asymptomatic - Previous CS for HSV outbreak, in G3 - Compliant with valtrex Anemia - s/p venofer - CBC 10.7 MJ use - UDS pos MJ on 02/23 - SW PP Dispo: transfer to L&D for IOL/TOLAC. Will start induction with pitocin. Discussed with patientexpectations of labor induction. Mirela Hernandez MD 03/04/2021 9:11 AM * Hali Tomas APRN-PRESS OPERATOR [employer] - 03/04/2021 8:22 AM CDT OPERATIONS GENERAL AGENT MFM Antepartum Progress Note Date: 03/04/2021 Hospital Day: 9 Subjective: Oneida Luis is a 25 year old G 5 P 3 A 1 at weeks gestation. Patient reports she is very nervous about her induction today. States she is nervous about the labor and the epidural. States she did not leak much overnight. Denies any vaginal bleeding. Denies feeling contractions. Reports good movement. She denies chest pain, shortness of breath, headache or abdominal pain. Objective: BP 108/64 Pulse 78 Temp 98.2 ??F (36.8 ??C) (Oral) Resp 18 Ht 5' 5 (1.651 m) Wt 174 lb 1.6 oz (79 kg) SpO2 100% BMI 28.97 kg/m2 Temp (24hrs) Max:98.2 ??F (36.8 ??C) Systolic (30hrs), Av , Min:101 , Max:127 Diastolic (30hrs), Av, Min:64, Max:74 No intake or output data in the 24 hours ending 03/04/21821 No data found. Physical Exam: General: alert, cooperative, no distress Lungs: non-labored respirations Abdomen: gravid, Non-tender, soft Extremities: No LE edema noted NST: See formal NST Note: Reactive with rare contraction noted Problem List: Patient Active Problem List: Fifth Hx of section premature rupture of membranes (PPROM) with unknown onset of labor HSV-2 infection complicating Iron deficiency anemia during Marijuana use Encounter for ultrasound to assess interval growth of fetus MEDICATIONS FOR CURRENT ENCOUNTER: ?? SCHEDULED MEDICATIONS: ?? 0.9% NaCl injection 10-40 mL, Intracatheter, q8h ?? docusate sodium (Colace) capsule 100 mg, Oral, BID ?? famotidine (Pepcid) tablet 20 mg, Oral, BID ?? iron polysaccharides (Niferex 150) capsule 150 mg, Oral, QDAY ?? vitamin with iron tablet 1 tablet, Oral, QDAY ?? valACYclovir (Valtrex) tablet 500 mg, Oral, BID ?? CONTINUOUS MEDICATIONS: ?? PRN MEDICATIONS: ?? Or ?? Or ?? Or ?? Or ?? Or ?? 0.9% NaCl injection 10-40 mL, Intravenous, PRN ?? bisacodyl (Dulcolax) suppository 10 mg, Rectal, QDAY PRN ?? bisacodyl EC (Dulcolax) tablet 5 mg, Oral, QDAY PRN ?? calcium carbonate (Tums) chew tablet 2 tablet, Oral, q4h PRN ?? calcium gluconate 10 % injection 1 g, Intravenous, PRN ?? lidocaine-prilocaine (Emla) cream, Topical, Once PRN ?? magnesium hydroxide (Milk Of Magnesia) suspension 30 mL, Oral, QDAY PRN ?? metoclopramide (Reglan) injection 10 mg, Intravenous, q6h PRN ?? ondansetron (Zofran) injection 4 mg, Intravenous, q6h PRN ?? prochlorperazine (Compazine) suppository 25 mg, Rectal, q12h PRN ?? simethicone (Mylicon) chew tablet 160 mg, Oral, 4X/day - PC & NIGHTLY PRN ?? sodium phosphate rectal (Fleet) enema 133 mL, Rectal, QDAY PRN Assessment/ Plan: 25 year old at 1. PPROM 1. Occurred on??02/23 2. S/p ANCS on??02/23 & 02/24 3. S/p latency antibiotics 4. Last SVE on 02/25 150/-3 5. GC/CT neg 6. S/p NICU consult 7. 02/24??EFW:??2091 grams 44th%ile, AC: 74th%ile, BREECH 8. 03/01 & 03/03 BSUS showed VERTEX 2. Previous c/s??with G3??for??HSV outbreak 1. Desires TOLAC (consented) if remains vertex 3. HSV 1. On Valtrex 2. No recent outbreaks, no current symptoms?? 3. BLE negative on admission 4. Will need repeat BLE prior to IOL 4. MJ Use this 1. UDS + for MJ 5. Anemia 1. 5/6: 10.7 & 32.4, MCV: 86.4 2. Ferritin: 7 3. S/p Venofer x 1 dose 4. PO Niferex 6. Supervision of 1. PNC with??Dr. Rondon 2. Datin week u/s 3. LR NIPT male 4. B+/I/-/- HIV neg 5. GCT:??116 6. GBS??negative from 02/23 7. Dispo: Plan for delivery at 34 weeks (TODAY). Will need BLE prior to IOL. Previously consented for a TOLAC and patient still desires to proceed. AMAURY Patterson 03/04/2021 8:22 AM * Elena Duncan I - 03/03/2021 11:38 AM CDT CLINICAL NUTRITION Pt rescreened 2/2 length of stay. She was getting a bedside ultrasound at the time of my visit . She will have IOL / TOLAC tomorrow . GCT WNL. BM yesterday , no GI complaints . Low H&H and Iron saturation noted , agree with PNV + and Niferex . Med/Surg History and Clinical Diagnoses: PPROM, pelvic pressure, anemia Height: 5' 5 (165.1 cm) Body mass index is 28.97 kg/m??. BMI Range: Overweight Patient Vitals for the past 336 hrs: Weight Weight Method (Utilize Scales) 02/23/21 1631 174 lb 1.6 oz (79 kg) [facility] Recent Labs Component Name 02/26/21 1514 02/24/21 0145 02/23/21 1653 HGB 11.3* 10.3* 10.8* HCT 34.9* 31.6* 33.5* Agree with supplementation of PNV + and Niferex. Current diet order: Regular Food Allergies: No known food allergies P.O.intake for past 48 hours: % Meal Taken Av % Min: 100 % Max: 100 %. Appetite : good . Weight : no new weight this week .. Skin/Wound: WDL. Stools: yesterday Last BM (Date): 03/02/21 Nutrition recommendation: agree with current nutrition order Education needed: None Education was not indicated, will deliver tomorrow . Will follow at low nutritional risk per protocol. Elena Vides DTR 03/03/2021 11:41 AM Ascom [id number] * Hali Tomas APRN-CNP - 03/03/2021 9:49 AM CDT BSUS showed Fetus in Cephalic presentation. + movement and breathing visualized during BSUS. Scheduled for TOLAC tomorrow at 08:00am. Patient informed AMAURY Patterson 03/03/2021 9:50 AM * Hali Tomas APRN-CNP - 03/03/2021 8:08 AM CDT OPERATIONS GENERAL AGENT MFM Antepartum Progress Note Date: 03/03/2021 Hospital Day: 8 Subjective: Oneida Luis is a 25 year old G 5 P 3 A 1 at weeks gestation. Patient reports she did not sleep well last night in anticipation of her upcoming delivery. Denies any vaginal bleeding. Reports leaking and increased discharge. Denies feeling regular contractions. Reports good movement. She denies chest pain, shortness of breath, headache or abdominal pain. Objective: BP 114/74 Pulse 86 Temp 98 ??F (36.7 ??C) (Oral) Resp 18 Ht 5' 5 (1.651 m) Wt 174 lb 1.6 oz (79 kg) SpO2 100% BMI 28.97 kg/m2 Temp (24hrs) Max:98.2 ??F (36.8 ??C) Systolic (30hrs), Av , Min:98 , Max:114 Diastolic (30hrs), Av, Min:62, Max:74 No intake or output data in the 24 hours ending 03/03/21 0809 No data found. Physical Exam: General: alert, cooperative, no distress Lungs: non-labored respirations Abdomen: gravid, Non-tender, soft Extremities: No LE edema noted NST: See formal NST Note: reactive TOCO: Rare contraction present Problem List: Patient Active Problem List: Fifth Hx of section premature rupture of membranes (PPROM) with unknown onset of labor HSV-2 infection complicating Iron deficiency anemia during Marijuana use Encounter for ultrasound to assess interval growth of fetus MEDICATIONS FOR CURRENT ENCOUNTER: ?? SCHEDULED MEDICATIONS: ?? 0.9% NaCl injection 10-40 mL, Intracatheter, q8h ?? docusate sodium (Colace) capsule 100 mg, Oral, BID ?? famotidine (Pepcid) tablet 20 mg, Oral, BID ?? iron polysaccharides (Niferex 150) capsule 150 mg, Oral, QDAY ?? vitamin with iron tablet 1 tablet, Oral, QDAY ?? valACYclovir (Valtrex) tablet 500 mg, Oral, BID ?? [COMPLETED] clindamycin (Cleocin) capsule 300 mg, Oral, q8h ?? [] iron sucrose (Venofer) 300 mg in 0.9% NaCl IV 265 mL IVPB, Intravenous, QDAY ?? CONTINUOUS MEDICATIONS: ?? PRN MEDICATIONS: ?? Or ?? Or ?? Or ?? Or ?? Or ?? 0.9% NaCl injection 10-40 mL, Intravenous, PRN ?? bisacodyl (Dulcolax) suppository 10 mg, Rectal, QDAY PRN ?? bisacodyl EC (Dulcolax) tablet 5 mg, Oral, QDAY PRN ?? calcium carbonate (Tums) chew tablet 2 tablet, Oral, q4h PRN ?? calcium gluconate 10 % injection 1 g, Intravenous, PRN ?? lidocaine-prilocaine (Emla) cream, Topical, Once PRN ?? magnesium hydroxide (Milk Of Magnesia) suspension 30 mL, Oral, QDAY PRN ?? metoclopramide (Reglan) injection 10 mg, Intravenous, q6h PRN ?? ondansetron (Zofran) injection 4 mg, Intravenous, q6h PRN ?? prochlorperazine (Compazine) suppository 25 mg, Rectal, q12h PRN ?? simethicone (Mylicon) chew tablet 160 mg, Oral, 4X/day - PC & NIGHTLY PRN ?? sodium phosphate rectal (Fleet) enema 133 mL, Rectal, QDAY PRN Assessment/ Plan: 25 year old at 1. PPROM 1. Occurred on??02/23 2. S/p ANCS on??02/23 & 02/24 3. On Latency antibiotics (Clinda due to amox allergy) 4. Last SVE on 02/25 150/-3 5. GC/CT neg 6. S/p NICU consult 7. 02/24??EFW:??2091 grams 44th%ile, AC: 74th%ile, BREECH 8. 5/3 BSUS showed VERTEX 2. Previous c/s??with G3??for??HSV outbreak 1. Desires TOLAC (consented) if remains vertex 3. HSV 1. On Valtrex 2. No recent outbreaks, no current symptoms 3. BLE negative on admission 4. Will need repeat BLE 4. MJ Use this 1. UDS + for MJ 5. Anemia 1. 4 H&H: 11.3 & 34.9, MCV: 88.1 2. Ferritin: 7 3. S/p Venofer x 1 dose 4. PO Niferex 6. Supervision of 1. PNC with??Dr. Rondon 2. Datin week u/s 3. LR NIPT male 4. B+/I/-/- HIV neg 5. GCT:??116 6. GBS negative from 02/23 7. Dispo: continue inpatient surveillance for PPROM. No evidence of infection, abruption or PTL today. Plan for delivery at 34 weeks or sooner if clinically indicated. Will re- ultrasound to confirm presentation and move for TOLAC tomorrow. AMAURY Patterson 03/03/2021 8:09 AM * Marion Blue RN - 03/03/2021 5:05 AM CDT Problem: Potential for Maternal/ infection Goal: Patient risk for infection will be minimized Outcome: Progressing Problem: Fear Related to Possible Delivery Goal: Decreased Anxiety R/T Fear of Unknown Outcome Outcome: Progressing Problem: High Risk for Impaired Well Being Goal: Fetus will remain hemodynamically stable. Outcome: Progressing * Laila Dexter RN - 03/02/2021 5:57 PM CDT Shift summary: patient is resting in bed, states positive for movement, denies contractions, vaginal bleeding, states leaking scant amount of clear/yellow drainage, denies odor or abdominal tenderness, instructed to let nurse know of any needs or changes. * Laila Dexter RN - 03/02/2021 11:38 AM CDT Instruct Oneida to inform nurse of temperature, change in leakage of fluid, odor to leakage, abdominal tenderness. * Buffy Collaod MD - 03/02/2021 6:27 AM CDT PGY-1 Antepartum Progress Note Date: 03/02/2021 Hospital Day: 7 Subjective: Oneida Luis is a 25 year old at 33w5d weeks gestation. Patient reports she continues toleak clear fluid. She had one small episode of spotting yesterday after SSE, she denies additional episodes. She has intermittent contractions and back pain, though the back pain is improved this morning. Reports good movement. Objective: BP 111/62 Pulse 74 Temp 97.6 ??F (36.4 ??C) (Oral) Resp 16 Ht 5' 5 (1.651 m) Wt 174 lb 1.6 oz (79 kg) SpO2 100% BMI 28.97 kg/m2 Temp (24hrs) Max:98.2 ??F (36.8 ??C) Systolic (30hrs), Av , Min:94 , Max:111 Diastolic (30hrs), Av, Min:55, Max:71 No intake or output data in the 24 hours ending 03/02/21 0631 No data found. Physical Exam: General: alert, cooperative, no distress Lungs: non-labored respirations Abdomen: gravid, no fundal tenderness Extremities: No LE edema noted NST/toco: see separate procedure note Problem List: Patient Active Problem List: Fifth Hx of section premature rupture of membranes (PPROM) with unknown onset of labor HSV-2 infection complicating Iron deficiency anemia during Marijuana use Breech presentation Encounter for ultrasound to assess interval growth of fetus MEDICATIONS FOR CURRENT ENCOUNTER: SCHEDULED MEDICATIONS: 0.9% NaCl injection 10-40 mL, Intracatheter, q8h clindamycin (Cleocin) capsule 300 mg, Oral, q8h docusate sodium (Colace) capsule 100 mg, Oral, BID famotidine (Pepcid) tablet 20 mg, Oral, BID iron polysaccharides (Niferex 150) capsule 150 mg, Oral, QDAY iron sucrose (Venofer) 300 mg in 0.9% NaCl IV 265 mL IVPB, Intravenous, QDAY vitamin with iron tablet 1 tablet, Oral, QDAY valACYclovir (Valtrex) tablet 500 mg, Oral, BID [COMPLETED] acetaminophen (Tylenol) tablet 1,000 mg, Oral, Once [COMPLETED] lactated ringers infusion, Intravenous, Once [COMPLETED] lidocaine PF (Xylocaine Mpf) 1 % injection, Intradermal, Once ?? [COMPLETED] ondansetron (disintegrating) (Zofran ODT) tablet 4 mg, Oral, Once ?? CONTINUOUS MEDICATIONS: PRN MEDICATIONS: Or Or Or Or Or 0.9% NaCl injection 10-40 mL, Intravenous, PRN bisacodyl (Dulcolax) suppository 10 mg, Rectal, QDAY PRN bisacodyl EC (Dulcolax) tablet 5 mg, Oral, QDAY PRN calcium carbonate (Tums) chew tablet 2 tablet, Oral, q4h PRN calcium gluconate 10 % injection 1 g, Intravenous, PRN lidocaine-prilocaine (Emla) cream, Topical, Once PRN magnesium hydroxide (Milk Of Magnesia) suspension 30 mL, Oral, QDAY PRN metoclopramide (Reglan) injection 10 mg, Intravenous, q6h PRN ondansetron (Zofran) injection 4 mg, Intravenous, q6h PRN prochlorperazine (Compazine) suppository 25 mg, Rectal, q12h PRN simethicone (Mylicon) chew tablet 160 mg, Oral, 4X/day - PC & NIGHTLY PRN ?? sodium phosphate rectal (Fleet) enema 133 mL, Rectal, QDAY PRN Assessment/ Plan: 25 year old at 1. PPROM 1. Occurred on 02/23 2. S/p ANCS on 02/23 & 02/24 3. On Latency antibiotics (Clinda due to amox allergy) 4. Last SVE on 02/25 150/-3 5. GC/CT neg 6. S/p NICU consult 7. 02/24 EFW: 2092 grams 44th%ile, AC: 74th%ile 1. Hx of CS x1 1. G3: pCS for HSV outbreak 2. Fetus now VTX, desires TOLAC and has been consented 2. HSV 1. On Valtrex 2. No recent outbreaks, no current symptoms 3. BLE negative on admission 3. MJ Use 1. UDS + for MJ 4. Anemia 1. 02/26 Hgb: 11.3, MCV: 88.1 2. Iron studies c/w ABDIRAHMAN 3. S/p Venofer x 1 4. PO Niferex 5. Supervision of 1. PNC with Dr. Rondon 2. Datin week u/s 3. LR NIPT male 4. B+/I/-/- HIV neg 5. GCT: 116 6. GBS negative from 02/23 6. Dispo: continue inpatient surveillance for PPROM. No evidence of infection, abruption or PTL today. Plan for delivery at 34 weeks or sooner if clinically indicated. Buffy Collado MD 03/01/2021 6:31 AM Associated attestation - Elisa Krueger MD - 03/02/2021 3:01 PM CDT [facility] STAFF I have reviewed Oneida Luis who is a 25 year old with a rea gestation at 33w5d with the OB resident team. We have discussed her past history and reviewed all pertinent records and recent clinical course. Oneida is here with PPROM. She has a history of one prior CD. I have evaluated and counseled her. She reports persistent leakage of clear fluid. She has no other complaints anddescribes normal movement. Exam: BP 107/73 Pulse 85 Temp 98 ??F (36.7 ??C) (Oral) Resp 18 Ht 5' 5 (1.651 m) Wt 174 lb 1.6 oz (79 kg) SpO2 97% BMI 28.97 kg/m2 Tmax 98.1 Gen - comfortable, alert, cooperative Abd - soft, gravid, nontender - no apparent uterine TTP FHT - please see separate procedure note Ultrasound (02/24): breech / 2092 g (44th centile), AC 74th centile / AYUSH 12.7 cm Please see separate imaging report for details. Recent Labs Component Name 02/26/21 1514 02/24/21 0145 02/23/21 1653 WBC 10.1 10.5 13.4* HGB 11.3* 10.3* 10.8* HCT 34.9* 31.6* 33.5* PLTCOUNT [phone] I have the following additions/revision to the plan: Continue close inpatient monitoring with TID & PRN NSTs s/p PPROM while awaiting delivery (scheduled in 2 days) Elisa Krueger MD, MPH * Marion Blue RN - 03/02/2021 3:59 AM CDT Problem: Potential for Maternal/ infection Goal: Patient risk for infection will be minimized Outcome: Progressing Problem: Fear Related to Possible Delivery Goal: Decreased Anxiety R/T Fear of Unknown Outcome Outcome: Progressing Problem: Hemodynamic Status/Cardiac Output Goal: Patient will maintain a positive hemodynamic status Outcome: Progressing * Laila Dexter RN - 03/01/2021 5:46 PM CDT Shift summary: Patient is resting in bed, states positive for movement, denies contractions at this time, denies vaginal bleeding, is leaking scant amount of yellow/clear drainage, denies odor,denies abdominal tenderness, vital signs are stable and is afebrile, encouraged to let nurse know of any needs or changes. * Denise Rodriguez MSW - 03/01/2021 1:05 PM CDT Social Work Progress Note 2:12 PM SW p/c from pt's RN. RN informed SW that pt did not want to meet with SW again, because shefelt threatened that SW would take her child. Pt stated that she did not want assistance from anyone from SW. SW informed RN that pt is in currently in need of a safe place for baby to sleep and additional baby items. SW has different Pack N Plays dependent on if pt has vaginal or . SW requested that a nurse provide pt with a Sweet Babies gift bag and an appropriate Pack N Play, once the baby is born. 1:05 PM bottom worker, Denise Rodriguez, met with pt in her room. Discussed items still needed in the home. Pt stated that she is still in need of some items including additional baby clothes and a Pack N Play for the baby to sleep. SW discussed role as mandated hydraulic corrugating machine operator if cord tissue drug screen results are positive for any illegal or controlled substances; pt verbalized understanding. Discussed ptno longer scheduled for CS, but will be induced on . Discussed PPD and provided PPD information. SW provided W&I Resource Guide. Psychosocial assessment completed. ELECTRIC MOTOR ASSEMBLER CASE MANAGEMENT PSYCHOSOCIAL ASSESSMENT Reason for Referral: Pt would like help preparing for baby at home Patient diagnosis and relevant medical history: DX: The encounter diagnosis was Premature rupture of membranes, unspecified duration to onset of labor, unspecified gestational age. Father of baby: Shaquille Luis, . Very supportive and involved. Language Barriers: N/A Cultural Barriers: N/A Ethnicity: White/ Lang: KAZAKH Patient's Address: [address] [place] [address] Pt's phone number: [phone] (home) Family Support (name and phone) Extended Emergency Contact Information Primary Emergency Contact: Shaquille Luis Address: [address] [place] [address] Mobile Relation: Spouse Secondary Emergency Contact: JANES SHANNON Mobile Relation: Mother Director Global Strategic Publisher Sales needed? No Alternative Scientific Software Developer Family Strengths: Pt stated that her family is always there and very supportive. Her older childrenare supportive of the younger children. Family Dynamic/Household Composition/Other children: Pt stated that in the home she has 15 y/o (?),7 y/o, 4 y/o and 2 year old boys in the home and baby will come to the home. Shaquille lives in the home as well. Pt stated that the oldest child has been very helpful to her throughout the . Alcohol/Drug/Smoking History (including history of tx): Pt denies alcohol, drug, smoking history. SW informed pt of positive MJ at admission. Pt stated that she occasionally uses marijuana for anxiety. She stated that she has discussed her use with her dr, however, does not have a prescription. Psychiatric History: Pt stated that she has a history of anxiety. She had been prescribed Xanax, but did not like the effects. Pt stated that she does not want to take medication for her anxiety due to fear that it will effect her ability to parent. Pt stated that she had been involved in counseling for anger issues when she was around 10 while her parents were getting . Employment: Pt not employed. was laid off during COVID and receiving unemployment. Education: Pt completed the 11th grade. Government assistance TANF (Temporary Assistance to Needy Families)- No Food [place]- Yes WIC- Yes SSI- No Insurance: Payor/Plan Subscriber Name Rel Member # Group # MEDICAID AETNA BETTER* ONEIDA LUIS Self [id number] [address] [id number] Community Resources Utilized: None identified Designated Engraver Optical Frames[facility] Referrals: Nurses for Newborns- [place] Resident Child protection referral- DFS/DCFS-Name of worker: Phone number: Other- Does the family have the following basic discharge needs? 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 If she is in need of assistance her mother and father provide childcare assistance. Transportation: Pt has her own vehicle. Family planning: The pt and her ELECTRIC MOTOR ASSEMBLER have discussed family planning. Recommended discharge plan for infant: Infant to return home with mother. MAXWELL Armstrong [phone] PRN Donor Floor Technician * Buffy Collado MD - 03/01/2021 12:51 PM CDT R1 OBGYN Progress Note Into patient room to re-assess patient status. Patient feeling much more comfortable now after fluids and tylenol. Discussed MOD now that fetus VTX. Patient desires to TOLAC. Discussed risks of trial of labor after section (TOLAC). The risk of uterine rupture with one prior delivery was quoted to the patient as <1%. She was informed that if uterine rupture occurs this becomes a surgical emergency and we would perform an emergency section and there is a risk for maternal hemorrhage or and brain damage (cerebral palsy) or .The section has been fully reviewed: risks including, but not limited to infection, bleeding and/or hemorrhage requiring transfusion (and its inherent risks of acquiring HIV, hepatitis and other blood born viral infections) or possible hysterectomy, damage to bowel, damage to bladder, damage to fetus, and blood clots. Indication, alternatives, risks and benefits of the TOLAC were discussed in detail. She desires to attempt a TOLAC. All questions were answered and concerns addressed. Buffy Collado MD 03/01/2021 12:53 PM * Laila Dexter RN - 03/01/2021 11:57 AM CDT 03/01/21 1134 Clinician Communication/Critical Test Notification Reason: OB - Monitor Strip Review Name of Clinician Notified: dr. collado Role: OB Resident Notification Method: Called/Phoned Action Orders Received Comments: reviewed strip and stated may come off EFM * Laila Dexter RN - 03/01/2021 11:27 AM CDT 03/01/21 1121 Clinician Communication/Critical Test Notification Reason: OB - Monitor Strip Review Name of Clinician Notified: dr. collado Role: OB Resident Notification Method: Called/Phoned Action Other (Comments) Comments: asked if could take off EFM, patient states contracts are not as often and a little more comfortable, stated would review strip and call back * Lalia Dexter RN - 03/01/2021 10:17 AM CDT 03/01/21 1000 Clinician Communication/Critical Test Notification Reason: Condition Update;OB - Monitor Strip Review Name of Clinician Notified: dr. collado Role: OB Resident Notification Method: Called/Phoned Action Other (Comments) Comments: pt c/o increased contractions and crying with back discomfort, asked to come and see patient * Buffy Collado MD - 03/01/2021 10:17 AM CDT R1 OBGYN Progress Note Called to patient room for increase in back pain and contractions. Upon entry into room, patient isvisibly uncomfortable and tearful. States pain is primarily located in mid to lower back and that she has had this previously though did worsen sometime this morning. States she is having contractions, though unable to quantify how frequently. When asked about yellow discharge on SSE, patient says it's always been like that . No change in fluid color or odor, vaginal bleeding. Feeling FM. Patient Vitals for the past 8 hrs: Temp Pulse Resp BP 03/01/21 0750 97.6 ??F (36.4 ??C) 80 18 94/55 General: Appears uncomfortable, tearful Abdomen: No fundal tenderness, contractions which palpate soft SSE: Cervix closed per vis, some yellow discharge per cervical os, no blood in vault EFM: baseline 145, moderate variability, reactive, no decelerations [place]: irritable, no contractions BSUS: VTX A/p 1. PPROM -AFVSS -Will administer 1L IVF and 1g tylenol -Continue monitoring/toco -Suspect latent PTL, no signs of IAI based on exam and vital signs. Plan to re- assess in 1 hour. Will address TOLAC v. rCS upon re-assessment D/w Dr. Javier Collado MD 03/01/2021 10:21 AM * Laila Dexter RN - 03/01/2021 9:40 AM CDT Instruct Oneida to inform nurse of any change in vaginal leakage, temperature, abdominal tenderness. * Laila Dexter RN - 03/01/2021 8:47 AM CDT 03/01/21 0846 Clinician Communication/Critical Test Notification Reason: Order Clarification Name of Clinician Notified: dr. collado Role: OB Resident Notification Method: Called/Phoned Action Orders Received Comments: questioned if OK to have vascular access team insert Midline since accucath did not last but a few days and stated OK to insert midline * Hali Tomas, FOURDRINIER WIRE WEAVER-PRESS OPERATOR [employer] - 03/01/2021 8:25 AM CDT .OPERATIONS GENERAL AGENT MFM Antepartum Progress Note Date: 03/01/2021 Hospital Day: 6 Subjective: Oneida Luis is a 25 year old G 5 P 3 A 1 at weeks gestation. Patient reports she continues to leak clear fluid. Denies any vaginal bleeding. Reports intermittent contractions. Reports good movement. Reports feeling nervous about her upcoming delivery. Reports normal BMs. Objective: BP 102/64 Pulse 66 Temp 98.4 ??F (36.9 ??C) (Oral) Resp 18 Ht 5' 5 (1.651 m) Wt 174 lb 1.6 oz (79 kg) SpO2 100% BMI 28.97 kg/m2 Temp (24hrs) Max:98.6 ??F (37 ??C) Systolic (30hrs), Av , Min:99 , Max:113 Diastolic (30hrs), Av, Min:62, Max:67 No intake or output data in the 24 hours ending 03/01/21 0825 No data found. Physical Exam: General: alert, cooperative, no distress Lungs: non-labored respirations Abdomen: gravid, Non-tender Extremities: No LE edema noted NST: See formal NST Note: reactive, no decelerations present TOCO: No contractions per TOCO Problem List: Patient Active Problem List: Fifth Hx of section premature rupture of membranes (PPROM) with unknown onset of labor HSV-2 infection complicating Iron deficiency anemia during Marijuana use Breech presentation Encounter for ultrasound to assess interval growth of fetus MEDICATIONS FOR CURRENT ENCOUNTER: ?? SCHEDULED MEDICATIONS: ?? 0.9% NaCl injection 3 mL, Intracatheter, q8h ?? clindamycin (Cleocin) capsule 300 mg, Oral, q8h ?? docusate sodium (Colace) capsule 100 mg, Oral, BID ?? famotidine (Pepcid) tablet 20 mg, Oral, BID ?? iron polysaccharides (Niferex 150) capsule 150 mg, Oral, QDAY ?? iron sucrose (Venofer) 300 mg in 0.9% NaCl IV 265 mL IVPB, Intravenous, QDAY ?? vitamin with iron tablet 1 tablet, Oral, QDAY ?? valACYclovir (Valtrex) tablet 500 mg, Oral, BID ?? [COMPLETED] ondansetron (disintegrating) (Zofran ODT) tablet 4 mg, Oral, Once ?? CONTINUOUS MEDICATIONS: ?? PRN MEDICATIONS: ?? Or ?? Or ?? Or ?? Or ?? Or ?? 0.9% NaCl injection 1-10 mL, Intracatheter, PRN ?? bisacodyl (Dulcolax) suppository 10 mg, Rectal, QDAY PRN ?? bisacodyl EC (Dulcolax) tablet 5 mg, Oral, QDAY PRN ?? calcium carbonate (Tums) chew tablet 2 tablet, Oral, q4h PRN ?? calcium gluconate 10 % injection 1 g, Intravenous, PRN ?? lidocaine-prilocaine (Emla) cream, Topical, Once PRN ?? magnesium hydroxide (Milk Of Magnesia) suspension 30 mL, Oral, QDAY PRN ?? metoclopramide (Reglan) injection 10 mg, Intravenous, q6h PRN ?? ondansetron (Zofran) injection 4 mg, Intravenous, q6h PRN ?? prochlorperazine (Compazine) suppository 25 mg, Rectal, q12h PRN ?? simethicone (Mylicon) chew tablet 160 mg, Oral, 4X/day - PC & NIGHTLY PRN ?? sodium phosphate rectal (Fleet) enema 133 mL, Rectal, QDAY PRN Assessment/ Plan: 25 year old at 1. PPROM 1. Occurred on 02/23 2. S/p ANCS on 02/23 & 02/24 3. On Latency antibiotics (Clinda due to amox allergy) 4. Last SVE on 02/2550/-3 5. GC/CT neg 6. S/p NICU consult 7. 02/24 EFW: 2092 grams 44th%ile, AC: 74th%ile, BREECH 2. Previous c/s with G3 for HSV outbreak 1. Plan for repeat (BREECH) 3. HSV 1. On Valtrex 2. No recent outbreaks, no current symptoms 3. BLE negative on admission 4. MJ Use this 1. UDS + for MJ 5. Anemia 1. 02/26 H&H: 11.3 & 34.9, MCV: 88.1 2. Ferritin: 7 3. S/p Venofer x 1 dose 4. PO Niferex 6. Supervision of 1. PNC with Dr. Rondon 2. Datin week u/s 3. LR NIPT male 4. B+/I/-/- HIV neg 5. GCT: 116 6. GBS negative from 02/23 7. Dispo: continue inpatient surveillance for PPROM. No evidence of infection, abruption or PTL today. Plan for delivery via c/s at 34 weeks (scheduled on 03/04 @ 13:30) or sooner if clinically indicated. AMAURY Patterson 03/01/2021 8:25 AM * Carline Alves RN - 03/01/2021 5:15 AM CDT Problem: High Risk for Impaired Well Being Goal: Fetus will remailn hemodynamically stable. Outcome: Progressing Problem: Hemodynamic Status/Cardiac Output Goal: Patient will maintain a positive hemodynamic status Outcome: Progressing Problem: Fear Related to Possible Delivery Goal: Decreased Anxiety R/T Fear of Unknown Outcome Outcome: Progressing Shift summary, patient rested in bed during the shift. Patient denies any contractions, vaginal bleeding, headache, visual changes, or RUQ pain. Patient reports LOF/ mucus, denies any foul odor from discharge. Patient ambulates independently and voids spontaneously. VSS during shift. + movement. * Mahsa Sawant RN - 02/28/2021 6:01 PM CDT Problem: Fall Risk Goal: Fall risk and fall related injury risk are minimized (Interventions related to the fall risk can be found in the flowsheet documentation) Outcome: Progressing Problem: Potential for Maternal/ infection Goal: Patient risk for infection will be minimized Outcome: Progressing Problem: Fear Related to Possible Delivery Goal: Decreased Anxiety R/T Fear of Unknown Outcome Outcome: Progressing Problem: Hemodynamic Status/Cardiac Output Goal: Patient will maintain a positive hemodynamic status Outcome: Progressing Problem: High Risk for Impaired Well Being Goal: Fetus will remailn hemodynamically stable. Outcome: Progressing Problem: Tobacco Use Goal: Inpatient tobacco-use cessation counseling participation Outcome: Progressing Shift Summary: Pt resting comfortably in bed, states no needs at this time. Denies contractions or vaginal bleeding. Reports no leakage of fluid today. Reports good movement. VS stable, afebrile. Pt aware to call staff with any changes. * Luisana Ye MD - 02/28/2021 8:46 AM CDT PGY3 Antepartum Progress Note Date: 02/28/2021 Hospital Day: 5 Subjective: Rare contractions. No vaginal bleeding. Clear minimal leaking of fluid. No green color of foul odor. + movements. Objective: Patient Vitals for the past 24 hrs: Temp Pulse Resp BP SpO2 02/27/21 2330 97.9 ??F (36.6 ??C) 66 18 123/84 100 % 02/27/21 2105 98.3 ??F (36.8 ??C) 75 -- -- 97 % 02/27/21 1720 98.3 ??F (36.8 ??C) 84 18 114/68 99 % 02/27/21 1400 98 ??F (36.7 ??C) 82 18 105/66 -- 02/27/21 0930 98.2 ??F (36.8 ??C) 93 20 107/67 99 % SpO2 on room air Temp (36hrs) Max:98.3 ??F (36.8 ??C) Intake/Output Summary (Last 24 hours) at 02/28/2021 0846 Last data filed at 02/27/2021 1838 Gross per 24 hour Intake 64.76 ml Output -- Net 64.76 ml Physical Exam: General: alert, cooperative, no distress Lungs: breathing comfortably on room air Abdomen: gravid, nontender, no palpable contractions Lower Extremities: no edema, non-tender bilaterally Labs: No new labs to review NST/[place]: See separate procedure note MEDICATIONS FOR CURRENT ENCOUNTER: ?? SCHEDULED MEDICATIONS: ?? 0.9% NaCl injection 3 mL, Intracatheter, q8h ?? clindamycin (Cleocin) capsule 300 mg, Oral, q8h ?? docusate sodium (Colace) capsule 100 mg, Oral, BID ?? iron polysaccharides (Niferex 150) capsule 150 mg, Oral, QDAY ?? iron sucrose (Venofer) 300 mg in 0.9% NaCl IV 265 mL IVPB, Intravenous, QDAY ?? vitamin with iron tablet 1 tablet, Oral, QDAY ?? valACYclovir (Valtrex) tablet 500 mg, Oral, BID ?? CONTINUOUS MEDICATIONS: ?? lactated ringers infusion, Intravenous, Continuous ?? PRN MEDICATIONS: ?? Or ?? Or ?? Or ?? Or ?? Or ?? 0.9% NaCl injection 1-10 mL, Intracatheter, PRN ?? bisacodyl (Dulcolax) suppository 10 mg, Rectal, QDAY PRN ?? bisacodyl EC (Dulcolax) tablet 5 mg, Oral, QDAY PRN ?? calcium carbonate (Tums) chew tablet 2 tablet, Oral, q4h PRN ?? calcium gluconate 10 % injection 1 g, Intravenous, PRN ?? lidocaine-prilocaine (Emla) cream, Topical, Once PRN ?? magnesium hydroxide (Milk Of Magnesia) suspension 30 mL, Oral, QDAY PRN ?? metoclopramide (Reglan) injection 10 mg, Intravenous, q6h PRN ?? ondansetron (Zofran) injection 4 mg, Intravenous, q6h PRN ?? prochlorperazine (Compazine) suppository 25 mg, Rectal, q12h PRN ?? simethicone (Mylicon) chew tablet 160 mg, Oral, 4X/day - PC & NIGHTLY PRN ?? sodium phosphate rectal (Fleet) enema 133 mL, Rectal, QDAY PRN Assessment: 25 year old at , 33 weeks and 3 days with ?? 1. PPROM 1. Occurred on??02/23 2. S/p ANCS on??02/23 & 02/24 3. On Latency antibiotics (Clinda due to amox allergy) 4. Last SVE on 02/25 150/-3 5. GC/CT/trich neg 6. S/p NICU consult 7. 02/24??EFW:??2091 grams 44th%ile, AC: 74th%ile, BREECH 2. Previous c/s??with G3??for??HSV outbreak 1. Plan for repeat (BREECH) 3. HSV 1. On Valtrex 2. No recent outbreaks 3. BLE negative on admission 4. MJ Use this 1. UDS + for MJ 5. Iron deficiency anemia 1. H&H: 10.3 & 31.6, MCV: 86.6 2. Ferritin low at 7, iron panel consistent with iron deficiency anemia 3. venofer ordered for 3 doses 6. Supervision of 1. PNC with??Dr. Rondon 2. Datin week u/s 3. LR NIPT male 4. B+/I/-/- HIV neg 5. GCT:??116 6. GBS negative??from 02/23 7. Dispo: continue inpatient surveillance for PPROM. No evidence of infection, abruption or PTL today. Plan for delivery via c/s at 34 weeks (scheduled on 03/04 @ 13:30) or sooner if clinically indicated.?? Luisana Ye MD 02/28/2021 8:46 AM Associated attestation - Fabrice Solis MD - 02/28/2021 9:27 AM CDT MFM Attending She is without complaints. Feels well. No bleeding, loss of fluid, discharge per vagina, cramps, contractions, pain, or pelvic pressure. She reports no headaches, visual changes or swelling. I have seen, evaluated and examined the patient with Dr. Suarez. I agree with the above assessment, exams and plans. Exam: BP 123/84 Pulse 66 Temp 97.9 ??F (36.6 ??C) (Oral) Resp 18 Ht 5' 5 (1.651 m) Wt 174 lb 1.6 oz (79 kg) SpO2 100% BMI 28.97 kg/m2 Physical Examination: General appearance - alert, well appearing, and in no distress and oriented x3 Mental status - normal mood, behavior, speech, dress, motor activity, Eyes - pupils equal and reactive, extraocular eye movements intact, sclera anicteric Neck - supple, no significant adenopathy, thyroid exam: thyroid is normal in size Lymphatics - no palpable inguinal lymphadenopathy Chest - clear to auscultation, no wheezes, rales or rhonchi, symmetric air entry, no tachypnea, retractions or cyanosis Heart - normal rate and regular rhythm Abdomen - gravid soft, nontender, no masses or organomegaly Uterus- soft and NT Back exam - no CVA tenderness, full range of motion, no spinal tenderness, Neurological - alert, oriented, normal speech, no focal findings or movement disorder noted, cranial nerves II through XII grossly intact Musculoskeletal - no joint tenderness, deformity or swelling, no muscular tenderness noted, full range of motion without pain Extremities - no edema, redness or tenderness in the calves or thighs Pelvic/Breast - deferred I have the following to add to the plan: I have seen and examined the patient with the resident Jessica agree with the findings and plan of care as documented by the resident. Date of Service: 02/28/21 MD Fabrice Mckenna MD [facility] * Tami Cano RN - 02/28/2021 1:45 AM CDT Shift summary: ([id number]) VSS, afebrile, abdomen nontender. pt denies pain, cramping, contractions, vaginal bleeding. Pt reports good movement. Pt reports small clear to pink tinged LOF with no odor. Report given to Carline Hayes Rn all questions answered and care relinquished. * Tami Cano RN - 02/28/2021 12:58 AM CDT Problem: Potential for Maternal/ infection Goal: Patient risk for infection will be minimized Outcome: Progressing VSS, afebrile, abdomen nontender. Problem: High Risk for Impaired Well Being Goal: Fetus will remailn hemodynamically stable. Outcome: Progressing Night EFM WNL reactive irritability one contraction. Pt reports good movement. * Mahsa Sawant RN - 02/27/2021 6:45 PM CDT Problem: Potential for Maternal/ infection Goal: Patient risk for infection will be minimized Outcome: Progressing Problem: Fear Related to Possible Delivery Goal: Decreased Anxiety R/T Fear of Unknown Outcome Outcome: Progressing Problem: Hemodynamic Status/Cardiac Output Goal: Patient will maintain a positive hemodynamic status Outcome: Progressing Problem: High Risk for Impaired Well Being Goal: Fetus will remailn hemodynamically stable. Outcome: Progressing Problem: Tobacco Use Goal: Inpatient tobacco-use cessation counseling participation Outcome: Progressing Shift Summary: Pt resting comfortably in bed, states no needs at this time. Denies contractions or vaginal bleeding. Reports small, clear leakage of fluid with no odor. Has scant brown discharge whenwipes at times. Reports good movement. VS stable, afebrile. Unable to finish IV Venofer dose this afternoon, infiltration occurred within 30 minutes of starting medication. Patient refusing newIV access to finish infusion at this time. States that she will just stick to the iron pill. States that she wants a break from IV access until IV therapy can see her Monday. Dr. Menchaca made aware. Patient aware that IV access will need to be obtained if her condition changes in any way.Pt aware to call staff with any changes or concerns. * Fabrice Solis MD - 02/27/2021 8:13 AM CDT PGY3 Antepartum Progress Note Date: 02/27/2021 Hospital Day: 4 Subjective: Denies change in fluid. No smell or green color. Leakage amount is minimal. Denies vaginal bleeding. Reports contractions and pelvic pressure last night that are much improved this morning. Also has bilateral abdominal pain. Good movement. Objective: Patient Vitals for the past 24 hrs: Temp Pulse Resp BP SpO2 02/27/21 0043 97.9 ??F (36.6 ??C) 61 20 98/61 -- 02/26/211999 98.5 ??F (36.9 ??C) -- -- -- -- 02/26/21 1555 98.1 ??F (36.7 ??C) 77 16 98/58 100 % 02/26/21 1130 98.4 ??F (36.9 ??C) -- -- -- -- 02/26/21 0850 98.6 ??F (37 ??C) 66 18 92/50 99 % Temp (36hrs) Max:98.6 ??F (37 ??C) Intake/Output Summary (Last 24 hours) at 02/27/2021 0813 Last data filed at 02/26/20211999 Gross per 24 hour Intake -- Output 1000 ml Net -1000 ml Physical Exam: General: alert, cooperative, no distress Lungs: breathing comfortably on room air Abdomen: gravid, tender on fundal area where fetus is pressing but not on left fundal area, mild contraction palpated, otherwise nontende Lower Extremities: no edema, non-tender bilaterally Labs: Recent Labs Component Name 02/26/21 1514 02/24/21 0145 02/23/21 1653 WBC 10.1 10.5 13.4* HGB 11.3* 10.3* 10.8* HCT 34.9* 31.6* 33.5* PLTCOUNT 271 246 239 No results for input(s): SODIUM, POTASSIUM, CHLORIDE, CO2, BUN, CREATININE, GLUCOSE, CALCIUM, ALBUMIN, ALKPHOS, ALT, AST, TBIL, TPROT, EGFR in the last 18678 hours. NST/[place]: See separate procedure note MEDICATIONS FOR CURRENT ENCOUNTER: ?? SCHEDULED MEDICATIONS: ?? 0.9% NaCl injection 3 mL, Intracatheter, q8h ?? clindamycin (Cleocin) capsule 300 mg, Oral, q8h ?? docusate sodium (Colace) capsule 100 mg, Oral, BID ?? iron polysaccharides (Niferex 150) capsule 150 mg, Oral, QDAY ?? vitamin with iron tablet 1 tablet, Oral, QDAY ?? valACYclovir (Valtrex) tablet 500 mg, Oral, BID ?? CONTINUOUS MEDICATIONS: ?? lactated ringers infusion, Intravenous, Continuous ?? PRN MEDICATIONS: ?? Or ?? Or ?? Or ?? Or ?? Or ?? 0.9% NaCl injection 1-10 mL, Intracatheter, PRN ?? bisacodyl (Dulcolax) suppository 10 mg, Rectal, QDAY PRN ?? bisacodyl EC (Dulcolax) tablet 5 mg, Oral, QDAY PRN ?? calcium carbonate (Tums) chew tablet 2 tablet, Oral, q4h PRN ?? calcium gluconate 10 % injection 1 g, Intravenous, PRN ?? lidocaine-prilocaine (Emla) cream, Topical, Once PRN ?? magnesium hydroxide (Milk Of Magnesia) suspension 30 mL, Oral, QDAY PRN ?? metoclopramide (Reglan) injection 10 mg, Intravenous, q6h PRN ?? ondansetron (Zofran) injection 4 mg, Intravenous, q6h PRN ?? prochlorperazine (Compazine) suppository 25 mg, Rectal, q12h PRN ?? simethicone (Mylicon) chew tablet 160 mg, Oral, 4X/day - PC & NIGHTLY PRN ?? sodium phosphate rectal (Fleet) enema 133 mL, Rectal, QDAY PRN Assessment: 25 year old at , 33 weeks and 2 days with 1. PPROM 1. Occurred on 02/23 2. S/p ANCS on 02/23 & 02/24 3. On Latency antibiotics (Clinda due to amox allergy) 4. Last SVE on 02/25 150/-3 5. GC/CT neg 6. S/p NICU consult 7. 02/24 EFW: 2092 grams 44th%ile, AC: 74th%ile, BREECH 8. Reports contractions overnight that improved, no obvious signs of infection on exam, encouraged her to reach out if they persist or worsen of if she things she needs to be checked 2. Previous c/s with G3 for HSV outbreak 1. Plan for repeat (BREECH) 3. HSV 1. On Valtrex 2. No recent outbreaks 3. BLE negative on admission 4. MJ Use this 1. UDS + for MJ 5. Iron deficiency anemia 1. H&H: 10.3 & 31.6, MCV: 86.6 2. Ferritin low at 7, iron panel consistent with iron deficiency anemia 3. venofer ordered 6. Supervision of 1. PNC with Dr. Rondon 2. Datin week u/s 3. LR NIPT male 4. B+/I/-/- HIV neg 5. GCT: 116 6. GBS negative from 02/23 7. Dispo: continue inpatient surveillance for PPROM. No evidence of infection, abruption or PTL today. Did have significant contractions last night that have improved substantially this morning. Planfor delivery via c/s at 34 weeks (scheduled on 03/04 @ 13:30) or sooner if clinically indicated. ?? Luisana Ye MD 02/27/2021 8:13 AM * Brittnee Esparza RN - 02/27/2021 6:28 AM CDT Shift summary: VSS. Slept comfortably through the night. Reports positive FM, denies contractions or vaginal bleeding. Has small amount watery pink vaginal leakage with no odor or abd tenderness. Will assess. * Kari Hawley RN - 02/26/2021 6:58 PM CDT SHIFT SUMMARY Oneida's vitals and assessment within normal limits. IV placed by IV therapy, flushes without resistance, dressing is clean, dry and intact. Oneida reports positive movement, denies bleeding,reports clear/pink LOF. Pt resting, call light within reach. * Kari Hawley RN - 02/26/2021 5:18 PM CDT Problem: Fall Risk Goal: Fall risk and fall related injury risk are minimized (Interventions related to the fall risk can be found in the flowsheet documentation) Outcome: Progressing Problem: Potential for Maternal/ infection Goal: Patient risk for infection will be minimized Outcome: Progressing Problem: Fear Related to Possible Delivery Goal: Decreased Anxiety R/T Fear of Unknown Outcome Outcome: Progressing Problem: Hemodynamic Status/Cardiac Output Goal: Patient will maintain a positive hemodynamic status Outcome: Progressing Problem: High Risk for Impaired Well Being Goal: Fetus will remailn hemodynamically stable. Outcome: Progressing Problem: Tobacco Use Goal: Inpatient tobacco-use cessation counseling participation Outcome: Progressing * Denise Rodriguez MSW - 02/26/2021 3:35 PM CDT Social Work Progress Note bottom worker, Denise Rodriguez, attempted to meet with pt in her room. Pt was sleeping. SW will followup with pt next week. SW will follow up regarding items pt is still needing in the home at that time. Pt is scheduled for a CS 03/04/21. MAXWELL Armstrong [phone] PRN Donor Floor Technician * Hali Tomas APRN-STEPHIE - 02/26/2021 8:32 AM CDT OPERATIONS GENERAL AGENT MFM Antepartum Progress Note Date: 02/26/2021 Hospital Day: 3 Subjective: Oneida Luis is a 25 year old G 5 P 3 A 1 at weeks gestation. Patient reports no complaints. States she continues to leak clear to pink tinged fluid. States she was able to sleep last night and was able to have a BM, reports she is feeling much better then yesterday. States good movement. She denies chest pain, shortness of breath, headache or abdominal pain. Objective: BP 99/63 Pulse 75 Temp 98 ??F (36.7 ??C) (Oral) Resp 16 Ht 5' 5 (1.651 m) Wt 174 lb 1.6oz (79 kg) SpO2 98% BMI 28.97 kg/m2 Temp (24hrs) Max:98.5 ??F (36.9 ??C) Systolic (30hrs), Av , Min:97 , Max:152 Diastolic (30hrs), Av, Min:51, Max:73 Intake/Output Summary (Last 24 hours) at 02/26/2021 0832 Last data filed at 02/26/2021 0553 Gross per 24 hour Intake -- Output 1700 ml Net -1700 ml No data found. Physical Exam: General: alert, cooperative, no distress Lungs: non-labored respirations Abdomen: gravid, soft, non-tender Extremities: No LE edema noted NST: See formal NST Note: reactive without decelerations present TOCO: No contractions per TOCO Problem List: Patient Active Problem List: Fifth Hx of section premature rupture of membranes (PPROM) with unknown onset of labor HSV-2 infection complicating Iron deficiency anemia during Marijuana use Breech presentation Encounter for ultrasound to assess interval growth of fetus MEDICATIONS FOR CURRENT ENCOUNTER: ?? SCHEDULED MEDICATIONS: ?? Followed by ?? 0.9% NaCl injection 3 mL, Intracatheter, q8h ?? clindamycin (Cleocin) capsule 300 mg, Oral, q8h ?? docusate sodium (Colace) capsule 100 mg, Oral, BID ?? iron polysaccharides (Niferex 150) capsule 150 mg, Oral, QDAY ?? vitamin with iron tablet 1 tablet, Oral, QDAY ?? valACYclovir (Valtrex) tablet 500 mg, Oral, BID ?? [COMPLETED] clindamycin (Cleocin) 900 mg in 50 mL D5W IVPB, Intravenous, q8h ?? CONTINUOUS MEDICATIONS: ?? lactated ringers infusion, Intravenous, Continuous ?? PRN MEDICATIONS: ?? Or ?? Or ?? Or ?? Or ?? Or ?? 0.9% NaCl injection 1-10 mL, Intracatheter, PRN ?? bisacodyl (Dulcolax) suppository 10 mg, Rectal, QDAY PRN ?? bisacodyl EC (Dulcolax) tablet 5 mg, Oral, QDAY PRN ?? calcium carbonate (Tums) chew tablet 2 tablet, Oral, q4h PRN ?? calcium gluconate 10 % injection 1 g, Intravenous, PRN ?? lidocaine-prilocaine (Emla) cream, Topical, Once PRN ?? magnesium hydroxide (Milk Of Magnesia) suspension 30 mL, Oral, QDAY PRN ?? metoclopramide (Reglan) injection 10 mg, Intravenous, q6h PRN ?? ondansetron (Zofran) injection 4 mg, Intravenous, q6h PRN ?? prochlorperazine (Compazine) suppository 25 mg, Rectal, q12h PRN ?? simethicone (Mylicon) chew tablet 160 mg, Oral, 4X/day - PC & NIGHTLY PRN ?? sodium phosphate rectal (Fleet) enema 133 mL, Rectal, QDAY PRN Assessment/ Plan: 25 year old at 1. PPROM 1. Occurred on 02/23 2. S/p ANCS on 02/23 & 02/24 3. On Latency antibiotics (Clinda due to amox allergy) 4. Last SVE on 02/25 /-3 5. GC/CT neg 6. S/p NICU consult 7. 02/24 EFW: 2092 grams 44th%ile, AC: 74th%ile, BREECH 2. Previous c/s with G3 for HSV outbreak 1. Plan for repeat (BREECH) 3. HSV 1. On Valtrex 2. No recent outbreaks 3. BLE negative on admission 4. MJ Use this 1. UDS + for MJ 5. Anemia 1. H&H: 10.3 & 31.6, MCV: 86.6 2. Will check Iron studied with next blood draw 6. Supervision of 1. PNC with Dr. Rondon 2. Datin week u/s 3. LR NIPT male 4. B+/I/-/- HIV neg 5. GCT: 116 6. GBS pending from 02/23 7. Dispo: continue inpatient surveillance for PPROM. No evidence of infection, abruption or PTL today. Plan for delivery via c/s at 34 weeks (scheduled on 03/04 @ 13:30) or sooner if clinically indicated. AMAURY Patterson 02/26/2021 8:32 AM * Lucretia Mackay RN - 02/26/2021 7:44 AM CDT Shift summary: Oneida Luis resting most of the night. Reports positive movement. VSS. IV access lost andrefused additional attempts after 3 unsuccessful attempts by 2 nurses. She reported some cramping and lower abdominal discomfort intermittently throughout the night, declined additional EFM. Encouraged pt to call out with any questions or concerns; call light within reach. Denies needs at this time. Will continue to monitor. * Lucretia Mackay RN - 02/26/2021 7:42 AM CDT Problem: Fall Risk Goal: Fall risk and fall related injury risk are minimized (Interventions related to the fall risk can be found in the flowsheet documentation) Outcome: Progressing Oneida Luis has remained free from falls throughout this shift. Problem: Potential for Maternal/ infection Goal: Patient risk for infection will be minimized Outcome: Progressing Oneida Luis has remained free from signs of infection throughout this shift. * Denies Ye RN - 02/26/2021 12:20 AM CDT Attempted IV start after 2 attempts already performed per primary RN. Unsuccessful. Pt crying and cursing during attempt, very upset and states she will not allow any more attempts tonight. Asked pt if she will let us try again in the am. States she will let staff know when she is willing to be stuck again. Will notify MD. * Luisana Torres RN - 02/25/2021 6:21 PM CDT This nurse received report this late afternoon from PIO Banks. Pt is AO*4, call light in reach, bed low and locked. Vital signs stable. Pt reports small pink tinged/clear LOF. No signs of distress, no bleeding, no visual changes,no headache. Pt reports movement. Pt is currently resting in bed. * Luisana Torres RN - 02/25/2021 6:20 PM CDT Problem: Fall Risk Goal: Fall risk and fall related injury risk are minimized (Interventions related to the fall risk can be found in the flowsheet documentation) Outcome: Progressing Problem: Potential for Maternal/ infection Goal: Patient risk for infection will be minimized Outcome: Progressing Problem: Fear Related to Possible Delivery Goal: Decreased Anxiety R/T Fear of Unknown Outcome Outcome: Progressing Problem: Hemodynamic Status/Cardiac Output Goal: Patient will maintain a positive hemodynamic status Outcome: Progressing Problem: High Risk for Impaired Well Being Goal: Fetus will remailn hemodynamically stable. Outcome: Progressing Problem: Tobacco Use Goal: Inpatient tobacco-use cessation counseling participation Outcome: Progressing * Carline Molina RD/MEGAN - 02/25/2021 4:56 PM CDT CLINICAL NUTRITION Pt screened per nutrition Leveling of Care protocol: and not here to deliver. Gestational Age: 33w0d Med/Surg History and Clinical Diagnoses: PPROM, pelvic pressure, anemia Height: 5' 5 (165.1 cm) Weight: 174 lb 1.6 oz (79 kg) No data found. Recent Labs Component Name 02/24/21 0145 02/23/21 1653 HGB 10.3* 10.8* HCT 31.6* 33.5* A woman admitted at 33w0d with Estimated Date of Delivery: 04/15/21. Pt was not available. Unsure of wt gain. Skin/Wound: intact. Appetite appears fair with intake averaging 62% of meals. Last BM 02/24 Diet Order:Current diet order: Regular Food Allergies: No known food allergies P.O.intake for past 48 hours: % Meal Taken Av.5 % Min: 50 % Max: 75 % Nutrition recommendation: agree with current nutrition order Education needed: ; Will follow up with education prior to discharge. Will follow per low nutritional risk protocol. Anastasiya BLACKWOOD 02/25/2021 4:58 PM * Reyna Welsh MD - 02/25/2021 12:58 PM CDT At bedside due to patient complaining of increasing pressure, feeling like there were feet kicking in her vagina. Declined SSE. SVE /-3, unchanged from previous. Reyna Welsh MD 02/25/2021 12:59 PM * Ross Mead - 02/25/2021 7:47 AM CDT MS3 Antepartum Progress Note Date: 02/25/2021 Hospital Day: 2 Subjective: Oneida Luis is a 25 year old G 5 P 3 A 1 at weeks gestation with premature rupture of membrane. Patient reports constant pelvic pressure along with back pain overnight. She also reports increased movement and clear pink fluid leakage. There was no headache, no dizziness, and no nausea overnight. She said she did not sleep for two days. Objective: BP 152/70 Temp 98.8 ??F (37.1 ??C) (Oral) Resp 20 Ht 1.651 m (5' 5 ) Wt 79 kg (174 lb 1.6 oz) SpO2 97% BMI 28.97 kg/m2 Temp (24hrs) Max:98.8 ??F (37.1 ??C) Systolic (30hrs), Av , Min:90 , Max:152 Diastolic (30hrs), Av, Min:53, Max:70 Intake/Output Summary (Last 24 hours) at 02/25/2021 0747 Last data filed at 02/25/2021 0639 Gross per 24 hour Intake 2632.49 ml Output 4050 ml Net -1417.51 ml Physical Exam: General: alert, cooperative, mildly distressed Extremities: normal, non-tender bilaterally NST: see separate procedure note TOCO: Problem List: Patient Active Problem List Diagnosis Date Noted ??? premature rupture of membranes (PPROM) with unknown onset of labor 02/24/2021 Priority: Not Prioritized ??? HSV-2 infection complicating 02/24/2021 Priority: Not Prioritized ??? Iron deficiency anemia during 02/24/2021 Priority: Not Prioritized ??? Marijuana use 02/24/2021 Priority: Not Prioritized ??? Breech presentation 02/24/2021 Priority: Not Prioritized ??? Encounter for ultrasound to assess interval growth of fetus Priority: Not Prioritized ??? Fifth 10/07/2020 Priority: Not Prioritized ??? Hx of section 10/07/2020 Priority: Not Prioritized Assessment: 25 year old at 33w0d 1. premature rupture of membrane - PPROM occurred 02/24 at 1130. - Mg Tocolytic was given and discontinued due to pt reporting severe nausea and dizziness. - Completed latency antibiotic treatment - Ultrasound performed: 44% weight, 142 bpm. - Plan: Follow up with ultrasound in two weeks. is scheduled in 34 week gestational age because baby is breeched. 2. Constant pelvic pressure - Speculum was performed and cervix dilation did not significantly change from last examination. - Tylenol was given - Plan: pelvic pressure is expected in . There is no need for tocolytic at this point because contraction is not observed. Continue providing Tylenol when patient persistently expresses pressure. 3. Anemia - Hb: 10.3 - MCV: 86.6 - Plan: Order CBC for today to monitor Hb levels. If Hb level falls to 8~10 gm/dL, provide iron supplements. Plan: Continue inpatient care for one more week until the scheduled . NoemíLizettchani Mead 02/25/2021 7:47 AM Associated attestation - Phil Umana MD - 02/25/2021 5:40 PM CDT This note is for the educational benefit of the medical student. Please see resident note for treatment details. Phil Umana MD 02/25/2021 5:40 PM * Phil Umana MD - 02/25/2021 6:52 AM CDT R1 Antepartum Progress Note Date: 02/25/2021 Hospital Day: 2 Subjective: Oneida Luis is a 25 year old at weeks gestation. There were no acute overnight events. She reports back pain overnight, has SSE and SVE overnight and was unchanged per Dr. Ribeiro. Denies any changes in her discahrge, +FM. Objective: Patient Vitals for the past 24 hrs: Temp Resp BP SpO2 02/25/21 0502 98.8 ??F (37.1 ??C) 20 152/70 -- 02/25/21 0256 -- 20 -- -- 02/25/21 0050 98.7 ??F (37.1 ??C) 16 99/56 -- 02/24/212009 -- -- -- 97 % 02/24/21 2006 98.4 ??F (36.9 ??C) 18 -- -- 02/24/212004 -- -- 95/53 -- 02/24/21 1605 98.1 ??F (36.7 ??C) 18 97/54 99 % 02/24/21 1155 97.9 ??F (36.6 ??C) 20 110/56 100 % 02/24/21 1020 97.7 ??F (36.5 ??C) 18 112/62 100 % 02/24/21 0740 98.1 ??F (36.7 ??C) 18 102/56 100 % Intake/Output Summary (Last 24 hours) at 02/25/2021 0653 Last data filed at 02/25/2021 0639 Gross per 24 hour Intake 2632.49 ml Output 4050 ml Net -1417.51 ml Physical Exam: General: alert, cooperative, no distress Lungs: clear to auscultation bilaterally Heart: regular rate and rhythm Abdomen: gravid, nontender, no palpable contractions Extremities: normal, non-tender bilaterally Labs: Recent Labs Component Name 02/24/21 0145 02/23/21 1653 WBC 10.5 13.4* HGB 10.3* 10.8* HCT 31.6* 33.5* PLTCOUNT 246 239 No results for input(s): SODIUM, POTASSIUM, CHLORIDE, CO2, BUN, CREATININE, GLUCOSE, CALCIUM, ALBUMIN, ALKPHOS, ALT, AST, TBIL, TPROT, EGFR in the last 15129 hours. NST/[place]: See separate procedure note MEDICATIONS FOR CURRENT ENCOUNTER: SCHEDULED MEDICATIONS: Followed by 0.9% NaCl injection 3 mL, Intracatheter, q8h clindamycin (Cleocin) 900 mg in 50 mL D5W IVPB, Intravenous, q8h clindamycin (Cleocin) capsule 300 mg, Oral, q8h docusate sodium (Colace) capsule 100 mg, Oral, BID iron polysaccharides (Niferex 150) capsule 150 mg, Oral, QDAY vitamin with iron tablet 1 tablet, Oral, QDAY valACYclovir (Valtrex) tablet 500 mg, Oral, BID [COMPLETED] acetaminophen (Tylenol) tablet 1,000 mg, Oral, Once [COMPLETED] betamethasone acet & sod phos (Celestone) injection 12 mg, Intramuscular, Once [COMPLETED] gentamicin (Garamycin) 396 mg in 0.9% NaCl IV 100 mL IVPB, Intravenous, q24h ?? [COMPLETED] lactated ringers IV bolus, Intravenous, Once CONTINUOUS MEDICATIONS: ?? lactated ringers infusion, Intravenous, Continuous PRN MEDICATIONS: Or Or Or Or Or 0.9% NaCl injection 1-10 mL, Intracatheter, PRN bisacodyl (Dulcolax) suppository 10 mg, Rectal, QDAY PRN bisacodyl EC (Dulcolax) tablet 5 mg, Oral, QDAY PRN calcium carbonate (Tums) chew tablet 2 tablet, Oral, q4h PRN calcium gluconate 10 % injection 1 g, Intravenous, PRN lidocaine-prilocaine (Emla) cream, Topical, Once PRN magnesium hydroxide (Milk Of Magnesia) suspension 30 mL, Oral, QDAY PRN metoclopramide (Reglan) injection 10 mg, Intravenous, q6h PRN ondansetron (Zofran) injection 4 mg, Intravenous, q6h PRN prochlorperazine (Compazine) suppository 25 mg, Rectal, q12h PRN simethicone (Mylicon) chew tablet 160 mg, Oral, 4X/day - PC & NIGHTLY PRN ?? sodium phosphate rectal (Fleet) enema 133 mL, Rectal, QDAY PRN Assessment/Plan: 25 year old at , with PPROM - Occurred on 02/23 - ANCS 02/23- - On latency abx- clindamycin/gentamycin/azith (Amoxicillin allergy) - s/p Mag - s/p NICU consul - GBS pending - Trich, GC/CT negative - Patient reports constant pelvic pressure this morning, but no changes in discharge, continue to monitor for signs of labor H/o CSx1 - in G3, for HSV outbreak - Interested in TOLAC, but understands need for CS if remains breech - Currently breech and scheduled for CS HSV - BLE neg - no recent outbreaks - valtrex ordered for suppression Anemia - Hgb 10.3 - Venofer ordered Anxiety - mood stable - No meds MJ use - UDS + on admission - PP SW Supervision of - PNL:B+/NI/-/-, NR - GCT wnl per pt - Dating 12wk US - [02/24] EFW 2092g (44%), br - PNC: Dr. Mcnally Dispo: plan for delivery at 34 weeks unless clinically indicated sooner. Monitor for signs of abruption, infection, or PTL. S/p Magnesium. Continue latency abx. If patient remains comfortable and FWBreassuring, transfer to for TID monitoring Phil Umana MD 02/25/2021 6:53 AM Associated attestation - Fabrice Solis MD - 02/25/2021 10:25 AM CDT MFM Attending She is without complaints. Feels well. No bleeding, loss of fluid, discharge per vagina, cramps, contractions, pain, or pelvic pressure. She reports no headaches, visual changes or swelling. I have seen, evaluated and examined the patient with Dr. Welsh. I agree with the above assessment, exams and plans. Exam: BP 97/56 Temp 98.5 ??F (36.9 ??C) (Oral) Resp 20 Ht 5' 5 (1.651 m) Wt 174 lb 1.6 oz (79 kg) SpO2 97% BMI 28.97 kg/m2 Physical Examination: General appearance - alert, well appearing, and in no distress and oriented x3 Mental status - normal mood, behavior, speech, dress, motor activity, Eyes - pupils equal and reactive, extraocular eye movements intact, sclera anicteric Neck - supple, no significant adenopathy, thyroid exam: thyroid is normal in size Lymphatics - no palpable inguinal lymphadenopathy Chest - clear to auscultation, no wheezes, rales or rhonchi, symmetric air entry, no tachypnea, retractions or cyanosis Heart - normal rate and regular rhythm Abdomen - gravid soft, nontender, no masses or organomegaly Uterus- soft and NT Back exam - no CVA tenderness, full range of motion, no spinal tenderness, Neurological - alert, oriented, normal speech, no focal findings or movement disorder noted, cranial nerves II through XII grossly intact Musculoskeletal - no joint tenderness, deformity or swelling, no muscular tenderness noted, full range of motion without pain Extremities - no edema, redness or tenderness in the calves or thighs Pelvic/Breast - deferred I have the following to add to the plan: I have seen and examined the patient with the resident Jessica agree with the findings and plan of care as documented by the resident. Date of Service: 02/25/21 MD Fabrice Mckenna MD [facility] * Delmy Ribeiro MD - 02/25/2021 5:30 AM CDT PGY2 ELECTRIC MOTOR ASSEMBLER Progress Note In to see patient for continued painful contractions. Om arrival to room, patient sitting up and looks comfortable. No distress. She notes that she is feeling worsening back pain and pelvic pressure. She denies abdominal contractions. No change LOF. + VB. + FM. Patient is very upset and wants the to be over. Abd: non-tender SVE: /-3. A little thinner than I spot checker her last night. At this time there is not much to offer patient in terms of medications. S/p LR and Tylenol w/o relief. Magnesium not indicated. BPs have bee 90/50s therefore Procardia not able to be used. Continue to monitor closely. Delmy Ribeiro MD 02/25/2021 5:30 AM * Delmy Ribeiro MD - 02/25/2021 2:49 AM CDT PGY2 ELECTRIC MOTOR ASSEMBLER Progress Note In to see patient for worsening pain. Notes having contractions that are more frequent and painful.LOF unchanged, no VB. + FM. General: uncomfortable appearing Abd: non-tender SSE: 1 per vis, no parts, no amniotic fluid or blood SVE deferred 1 L bolus LR and 1 g Tylenol Continue to monitor Delmy Ribeiro MD 02/25/2021 2:49 AM * Delmy Ribeiro MD - 02/24/2021 10:10 PM CDT PGY2 ELECTRIC MOTOR ASSEMBLER Progress Note In to see patient for back pain. She notes it started a few minute ago. No other complaints. General: resting comfortably, no distress Abd: none tender deferred as patient status reassuring Patient declined further intervention at this time Delmy Ribeiro MD 02/24/2021 10:10 PM * Carline Joy RN - 02/24/2021 9:36 PM CDT Pt called out. States that the rest of her water broke whe she got up to void. Describes as a large gush of clear fluid. States that her cramping became more intense around 2124. States that it is worse than 10 on 1-10 pain scale. Describes pain in pelvic area and goes up into her back . Pt breathing heavily through contrxns at this time. Dr ribeiro notified of pt current status. No new ordersat this time. * Carline Joy RN - 02/24/2021 8:37 PM CDT Resting in bed with occass cramping. But states the cramping is tolerable and not as painful as last night. Denies actually feeling movement, but states that she feels hiccups and hiccups audible on efm . Clr pinkish fld cont to be noted on vpad(no change from previously) * Kate Marie RN - 02/24/2021 8:02 PM CDT Problem: Potential for Maternal/ infection Goal: Patient risk for infection will be minimized Outcome: Progressing Problem: Fear Related to Possible Delivery Goal: Decreased Anxiety R/T Fear of Unknown Outcome Outcome: Progressing Problem: Hemodynamic Status/Cardiac Output Goal: Patient will maintain a positive hemodynamic status Outcome: Progressing Problem: High Risk for Impaired Well Being Goal: Fetus will remailn hemodynamically stable. Outcome: Progressing Problem: Tobacco Use Goal: Inpatient tobacco-use cessation counseling participation Outcome: Progressing Assumed pt care at 1300. Oneida reports +FM but that it is decreased. movement audible on EFM, Dr. Umana aware. EFM remains reactive.Oneida continues to c/o cramping, pressure, and pink tinged leakage of fluid. She denies any abdominal tenderness and remains afebrile. She states she feels much better off the Magnesium. Encouraged Oneida to call nursing staff if her cramping or pressure increases in severity, she verbalized understanding. Report given to PIO Lopez. All questions answered. * Kate Marie RN - 02/24/2021 4:50 PM CDT 02/24/21 1650 Clinician Communication/Critical Test Notification Reason: Condition Update Name of Clinician Notified: Dr. Uamna Role: OB Resident Notification Method: In Person Action No new orders received-Care to Continue Comments: Per pt she feels baby moving but it has been decreased all day. Thought it was d/t Magnesium but still remains decreased since Mg d/c'd. RN hears baby movement on EFM. Baby remains reactive. Will continue to monitor. * April Hernandez - 02/24/2021 12:12 PM CDT Ultrasound completed- 02/24/2021 Position- Breech AYUSH- 12.72 cm EFW- 2092 grams Heart rate- 142 bpm Comments- Ultrasound Completed by April Hernandez, NIKKIMS, RDCS * Riana MeadOrestesLizett - 02/24/2021 9:22 AM CDT MS3 Antepartum Progress Note Date: 02/24/2021 Hospital Day: 1 Subjective: Oneida Luis is a 25 year old G 5 P 3 A 1 at 32w6d weeks gestation. Pateint has premature rupture of membrane. The patient reports dizziness with nausea this morning with constant back pain overnight. There is also minimal vaginal bleeding that is darker color than usual. Objective: BP 102/56 Temp 98.1 ??F (36.7 ??C) (Oral) Resp 18 Ht 1.651 m (5' 5 ) Wt 79 kg (174 lb 1.6 oz) SpO2 100% BMI 28.97 kg/m2 Temp (24hrs) Max:98.9 ??F (37.2 ??C) Systolic (30hrs), Av , Min:90 , Max:116 Diastolic (30hrs), Av, Min:52, Max:64 Intake/Output Summary (Last 24 hours) at 02/24/2021 0922 Last data filed at 02/24/2021 0832 Gross per 24 hour Intake 240 ml Output 3000 ml Net -2760 ml Physical Exam: General: alert, cooperative, distressed NST: see separate procedure note TOCO: Problem List: Patient Active Problem List Diagnosis Date Noted ??? Premature rupture of membranes 02/23/2021 Priority: Not Prioritized ??? Fifth 10/07/2020 Priority: Not Prioritized ??? Encounter for ultrasound 10/07/2020 Priority: Not Prioritized ??? Hx of section 10/07/2020 Priority: Not Prioritized ??? Herpes 10/07/2020 Priority: Not Prioritized Assessment: 25 year old at 32w6d 1. Premature rupture of membrane: Tocolytic was given. Monitor lung function for possible pulmonaryedema 2. Nausea: control with ondansentron 4mg IV 3. Anemia: Continue monitoring and give supplemental iron if Hb level decrease to 8 g/dL. NoemíLizett [place] 02/24/2021 9:22 AM Associated attestation - Phil Umana MD - 02/24/2021 6:15 PM CDT This note is for the educational benefit of the medical student. Please see resident note for treatment details. Phil Umana MD 02/24/2021 6:15 PM * Phil Umana MD - 02/24/2021 6:51 AM CDT R1 Antepartum Progress Note Date: 02/24/2021 Hospital Day: 1 Subjective: Oneida Luis is a 25 year old at 32w6d weeks gestation. There were no acute overnight events. She reports back pain overnight. Denies any changes in her discahrge, +FM. Objective: Patient Vitals for the past 24 hrs: Temp Resp BP SpO2 02/24/21 0603 -- 16 -- 97 % 02/24/21 0500 -- -- 108/64 -- 02/24/21 0410 -- 20 -- 97 % 02/24/21 0350 -- -- 90/55 -- 02/24/21 0332 -- -- 97/54 -- 02/24/21 0330 97.7 ??F (36.5 ??C) 18 -- 97 % 02/24/21 0150 -- -- 108/62 -- 02/24/21 0106 -- 16 -- 96 % 02/24/21 0059 -- -- 93/52 -- 02/23/21 2350 97.8 ??F (36.6 ??C) 16 107/60 98 % 02/23/212249 -- 16 90/52 -- 02/23/219 -- 16 -- 96 % 02/23/21 2143 98.1 ??F (36.7 ??C) 16 108/60 96 % 02/23/212049 -- 16 106/59 96 % 02/23/212030 -- 14 106/61 -- 02/23/212029 -- -- -- 96 % 02/23/211946 98.1 ??F (36.7 ??C) 16 108/58 98 % 02/23/21 1631 98.9 ??F (37.2 ??C) 16 116/64 97 % Intake/Output Summary (Last 24 hours) at 02/24/2021 0651 Last data filed at 02/24/2021 0633 Gross per 24 hour Intake -- Output 2875 ml Net -2875 ml Physical Exam: General: alert, cooperative, no distress Lungs: clear to auscultation bilaterally Heart: regular rate and rhythm Abdomen: gravid, nontender, no palpable contractions Extremities: normal, non-tender bilaterally Labs: Recent Labs Component Name 02/24/21 0145 02/23/21 1653 WBC 10.5 13.4* HGB 10.3* 10.8* HCT 31.6* 33.5* PLTCOUNT 246 239 No results for input(s): SODIUM, POTASSIUM, CHLORIDE, CO2, BUN, CREATININE, GLUCOSE, CALCIUM, ALBUMIN, ALKPHOS, ALT, AST, TBIL, TPROT, EGFR in the last 04396 hours. NST/[place]: See separate procedure note MEDICATIONS FOR CURRENT ENCOUNTER: ?? SCHEDULED MEDICATIONS: ?? Followed by ?? 0.9% NaCl injection 3 mL, Intracatheter, q8h ?? betamethasone acet & sod phos (Celestone) injection 12 mg, Intramuscular, Once ?? clindamycin (Cleocin) 900 mg in 50 mL D5W IVPB, Intravenous, q8h ?? docusate sodium (Colace) capsule 100 mg, Oral, BID ?? gentamicin (Garamycin) 396 mg in 0.9% NaCl IV 100 mL IVPB, Intravenous, q24h ?? iron polysaccharides (Niferex 150) capsule 150 mg, Oral, QDAY ?? vitamin with iron tablet 1 tablet, Oral, QDAY ?? valACYclovir (Valtrex) tablet 500 mg, Oral, BID ?? [COMPLETED] acetaminophen (Tylenol) tablet 1,000 mg, Oral, Once ?? [COMPLETED] azithromycin (Zithromax) tablet 1,000 mg, Oral, Once ?? [START ON 02/25/2021] clindamycin (Cleocin) capsule 300 mg, Oral, q8h ?? CONTINUOUS MEDICATIONS: ?? lactated ringers infusion, Intravenous, Continuous ?? magnesium sulfate 40 g in 1000 mL infusion, Intravenous, Continuous ?? PRN MEDICATIONS: ?? Or ?? Or ?? Or ?? Or ?? Or ?? 0.9% NaCl injection 1-10 mL, Intracatheter, PRN ?? bisacodyl (Dulcolax) suppository 10 mg, Rectal, QDAY PRN ?? bisacodyl EC (Dulcolax) tablet 5 mg, Oral, QDAY PRN ?? calcium carbonate (Tums) chew tablet 2 tablet, Oral, q4h PRN ?? calcium gluconate 10 % injection 1 g, Intravenous, PRN ?? lidocaine-prilocaine (Emla) cream, Topical, Once PRN ?? magnesium hydroxide (Milk Of Magnesia) suspension 30 mL, Oral, QDAY PRN ?? metoclopramide (Reglan) injection 10 mg, Intravenous, q6h PRN ?? ondansetron (Zofran) injection 4 mg, Intravenous, q6h PRN ?? prochlorperazine (Compazine) suppository 25 mg, Rectal, q12h PRN ?? simethicone (Mylicon) chew tablet 160 mg, Oral, 4X/day - PC & NIGHTLY PRN ?? sodium phosphate rectal (Fleet) enema 133 mL, Rectal, QDAY PRN Assessment/Plan: 25 year old at 32w6d, with PPROM - Occurred on 02/23 - ANCS 02/23- - On latency abx- clindamycin/gentamycin/azith (Amoxicillin allergy) - On mag for tocolysis - s/p NICU consult - Formal growth this AM - GBS pending - Trich, GC/CT negative H/o CSx1 - in G3, for HSV outbreak - Interested in TOLAC, but understands need for CS if remains breech - Currently breech and scheduled for CS HSV - BLE neg - no recent outbreaks - valtrex ordered for suppression Anemia - Hgb 10.3 - Venofer ordered Anxiety - mood stable - No meds MJ use - UDS + on admission - PP SW Supervision of - PNL:B+/NI/-/-, NR - GCT wnl per pt - Dating 12wk US - [02/23] inf EFW 2172g (60%), br - PNC: Dr. Mcnally Dispo: plan for delivery at 34 weeks unless clinically indicated sooner. Monitor for signs of abruption, infection, or PTL. Formal US this AM. Continue Mag through steroid window. Continue latency abx. Phil Umana MD 02/24/2021 6:51 AM Associated attestation - Fabrice Solis MD - 02/24/2021 10:27 AM CDT MFM Attending She is without complaints. Feels well. No bleeding, loss of fluid, discharge per vagina, cramps, contractions, pain, or pelvic pressure. She reports no headaches, visual changes or swelling. I have seen, evaluated and examined the patient with Dr. Corona. I agree with the above assessment, exams and plans. Exam: BP 102/56 Temp 98.1 ??F (36.7 ??C) (Oral) Resp 18 Ht 5' 5 (1.651 m) Wt 174 lb 1.6 oz (79 kg) SpO2 100% BMI 28.97 kg/m2 Physical Examination: General appearance - alert, well appearing, and in no distress and oriented x3 Mental status - normal mood, behavior, speech, dress, motor activity, Eyes - pupils equal and reactive, extraocular eye movements intact, sclera anicteric Neck - supple, no significant adenopathy, thyroid exam: thyroid is normal in size Lymphatics - no palpable inguinal lymphadenopathy Chest - clear to auscultation, no wheezes, rales or rhonchi, symmetric air entry, no tachypnea, retractions or cyanosis Heart - normal rate and regular rhythm Abdomen - gravid soft, nontender, no masses or organomegaly Uterus- soft and NT Back exam - no CVA tenderness, full range of motion, no spinal tenderness, Neurological - alert, oriented, normal speech, no focal findings or movement disorder noted, cranial nerves II through XII grossly intact Musculoskeletal - no joint tenderness, deformity or swelling, no muscular tenderness noted, full range of motion without pain Extremities - no edema, redness or tenderness in the calves or thighs Pelvic/Breast - deferred I have the following to add to the plan: I have seen and examined the patient with the resident Jessica agree with the findings and plan of care as documented by the resident. Date of Service: 02/24/21 MD Fabrice Mckenna MD [facility] * Carline Joy RN - 02/23/2021 11:57 PM CDT Pt woke up with pain like earlier this evening. States having back pain and abd pain. Breathing through the pain. Pt voided and pt appeared in less pain. Dr ribeiro notified. oo for tylenol . Pt also complaining of teeth bleeding Pt noted to nhave blood in her mouth. Said this happens from time to time when she brushes her teeth. States that she has not seen a dentist for this issue. * Carline Joy RN - 02/23/2021 9:26 PM CDT Cont to have contrxns. Ve done and no change noted. Magnesium sulfate was increased to 2.5g/hr at 2027. Remains afebrile. * Delmy Ribeiro MD - 02/23/2021 8:07 PM CDT PGY2 [employer] Progress Note In to see patient for contractions. Patient notes worsened a few minutes ago. Every few minutes, painful. Relief between. No change in LOF. No VB. + FM. Filed Vitals: 02/23/21 2143 02/23/21 2249 02/23/21 2250 02/23/21 2350 BP: 108/60 90/52 107/60 Resp: 16 16 16 16 Temp: 98.1 ??F (36.7 ??C) 97.8 ??F (36.6 ??C) TempSrc: Oral Axillary SpO2: 96% 96% 98% Weight: Height: PE: General: uncomfortable appearing Abd: gravid, non-tender, contractions palpate moderate SSE: patient unable to tolerate, no fluid/bllood/ parts noted SVE: 1 cm externally, still very thick. Did not aggressively check to assess internal os. -3. A/p: Mg to 2.5 Continue cEFM and IVF Monitor closely Delmy Ribeiro MD 02/23/2021 8:07 PM * Dwayne Wilcox RN - 02/23/2021 7:32 PM CDT Shift summary: Assumed pt's care around 1730. Pt denies visual changes, headache, or epigastric pain. Reports backache, abdominal cramping,contractions, pelvis pressure, pinkish vaginal discharge. Denies vaginal bleeding. Reflexes 2/2 Report positive FM. Pt made aware to call staff for any changes in status. documented in this encounter H&P Notes * Reyna Welsh MD - 02/23/2021 5:29 PM CDT R4 Obstetric H&P Note 02/23/2021, 5:34 PM CC: HRT for PROM HPI: 25 year old at 32w5d gestation Dating: ~12 week ultrasound Estimated Date of Delivery: 04/15/21 care: is with Dr. Blackburn Patient's is complicated by: Patient Active Problem List Diagnosis Date Noted ??? Premature rupture of membranes 02/23/2021 Priority: Not Prioritized ??? Fifth 10/07/2020 Priority: Not Prioritized ??? Encounter for ultrasound 10/07/2020 Priority: Not Prioritized ??? Hx of section 10/07/2020 Priority: Not Prioritized ??? Herpes 10/07/2020 Priority: Not Prioritized Patient presents with complaints of loss of fluid at 1130 am. Rupture happened when she was standing doing her hair and makeup. Had some vaginal spotting and her confirmed she was leaking fluid. Hasn't felt much leaking since. Feeling back and abdominal pain. Contractions q6mins. positive Ctx. positive LOF. positive VB. positive FM. Review of Symptoms: Positive for: see HPI Denies: fevers, chills, chest pain, shortness of breath, nausea, vomiting, diarrhea, constipation, dysuria, urinary frequency, changes in vaginal discharge Obstetrical History: OB History Para Term AB Living 5 3 3 1 3 SAB TAB Ectopic Multiple Live Births 1 3 # Outcome Date GA Lbr Bull/2nd Weight Sex Delivery Anes PTL Lv 5 Current 4 Term 06/14/18 40w0d 2778 g (6 lb 2 oz) M CS-Unspec RICHARD 3 Term 02/19/16 40w0d 2977 g (6 lb 9 oz) M Vag-Spont RICHARD 2 Term 03/19/13 40w0d 3600 g (7 lb 15 oz) M Vag-Spont RICHARD 1 SAB 10/2009 SAB Gynecologic History: History of abnormal pap smear: denies History of procedure on cervix: denies STI History: +HSV. Denies gonorrhea, chlamydia, trichomonas, HIV, syphilis Medical History: No past medical history on file. She denies history of hypertension, diabetes, asthma or bleeding disorders. Psych History: Depression: No Anxiety: No Bipolar disorder: No Schizophrenia: No Surgeries: C/S X1 Current Medications: Prior to Admission medications Not on File Allergies: Allergies Allergen Reactions ??? Amoxicillin Rash Social History: Social History Smoking status: Not on file Smokeless tobacco: Not on file Alcohol use: Not on file Drug use: Unknown Sexual activity: Not on file Family History: No family history on file. No history of infants born with defects No history of family members with bleeding disorders or history of blood clots. No history of breast, ovarian, or uterine cancer Objective: Patient Vitals for the past 24 hrs: Temp Resp BP 02/23/21 1631 98.9 ??F (37.2 ??C) 16 116/64 Physical Exam General: no acute distress, alert and oriented x3 HEENT: extra-occular movements intact, moist mucous membranes Heart: regular rate Lungs: non-labored breathing on room air Abdomen: soft, non-tender, non-distended, no appreciable masses or organomegaly Extremities: non-tender bilaterally, no edema bilaterally Neuro: cranial nerves grossly intact, strength and sensation intact and symmetric bilaterally Psych: appropriate affect Sterile speculum exam: Bright light exam:negative Exam for ROM: Pooling: positive, Nitrizine: positive, Fern: negative Cervical Exam 1 per vis Bedside ultrasound: Presentation: breech Placenta: posterior Amniotic fluid index: 8 cm EFW: 2172 gm Current Lab Review: No results found for this visit on 02/23/21. labs Blood type: B+ Rubella: non-immune Hep B surface antigen:non-reactive RPR: non-reactive HIV:Negative GCT: normal per patient GBS: collected Assessment/Plan: 25 year old @ 32w5d 1. Premature Rupture of Membranes 1. Will admit to PSCU 2. S/p first dose of ANCS 02/23 at 1330, repeat tomorrow 3. Will administer ampicillin 2g IV Q 6 hours x48 hours followed by amoxicillin 250mg PO Q8 hours x5 days for GBS prophylaxis in addition to azithromycin 500mg IV x1 followed by azithromycin 250mg PO daily x6 days for latency 4. Mag 01/29 for tocolysis 5. Neonatology consulted 6. Formal US in AM 7. Routine cultures pending: Cath UA and urine culture, GBS, GC/CT 2. History of c/s x1 1. In G3 for HSV outbreak 2. Fetus BREECH 3. Interested in TOLAC, but understands need for c/s if remains breech The section has been fully reviewed with the patient/family and written informed consent has been obtained. Risks including, but not limited to, hemorrhage, need for blood transfusion (and its inherent risks of acquiring HIV, Hep B/C, CMV and other infections), failure of the procedure, infection, injury to surrounding structures (bowel/bladder/ureters), risk of injury to pt/fetus have been explained. The patient wishes to proceed. All questions were answered. 4. Consent signed and in chart 3. HSV 1. No recent outbreaks 2. BLE neg 3. Valtrex ordered for suppression 4. Anemia- CBC pending, on PO iron 5. Anxiety- stable, no meds During encounter with patient, discussion had regarding anticipated course of care. Explained to patient that the short-term goal is provide tocolysis thru the steroid window in order to improved outcome in the event of prematrue delivery. She is aware that she will be receiving antibiotictherapy in order to prolong latency. We discussed potential risks associated with PPROM including but not limited to: infection, vaginal bleeding, placental abruption, delivery, and distress. She understands to notify care providers with symptoms of fever, chills, contractions, vaginal bleeding or decreased movement. Patient is aware that she will be speaking with members of the Neonatology team to offer information regarding expectations in the event of delivery. All her questions were answered. To be discussed with Dr. Will Welsh MD 02/23/2021 5:34 PM Associated attestation - Fabrice Solis MD - 02/24/2021 10:28 AM CDT MFM Attending She is without complaints. Feels well. No bleeding, loss of fluid, discharge per vagina, cramps, contractions, pain, or pelvic pressure. She reports no headaches, visual changes or swelling. I have seen, evaluated and examined the patient with Dr. Corona. I agree with the above assessment, exams and plans. Exam: BP 102/56 Temp 98.1 ??F (36.7 ??C) (Oral) Resp 18 Ht 5' 5 (1.651 m) Wt 174 lb 1.6 oz (79 kg) SpO2 100% BMI 28.97 kg/m2 Physical Examination: General appearance - alert, well appearing, and in no distress and oriented x3 Mental status - normal mood, behavior, speech, dress, motor activity, Eyes - pupils equal and reactive, extraocular eye movements intact, sclera anicteric Neck - supple, no significant adenopathy, thyroid exam: thyroid is normal in size Lymphatics - no palpable inguinal lymphadenopathy Chest - clear to auscultation, no wheezes, rales or rhonchi, symmetric air entry, no tachypnea, retractions or cyanosis Heart - normal rate and regular rhythm Abdomen - gravid soft, nontender, no masses or organomegaly Uterus- soft and NT Back exam - no CVA tenderness, full range of motion, no spinal tenderness, Neurological - alert, oriented, normal speech, no focal findings or movement disorder noted, cranial nerves II through XII grossly intact Musculoskeletal - no joint tenderness, deformity or swelling, no muscular tenderness noted, full range of motion without pain Extremities - no edema, redness or tenderness in the calves or thighs Pelvic/Breast - deferred I have the following to add to the plan: I have seen and examined the patient with the resident Jessica agree with the findings and plan of care as documented by the resident. Date of Service: 02/24/21 MD Fabrice Mckenna MD MFM documented in this encounter Procedure Notes * Marion Blue RN - 03/03/2021 11:32 PM CDTAssociated Order(s): NON-STRESS TEST Procedure(s): NONSTRESS TEST Name: Oneida Luis Date of : 1995 Today's Date: 03/03/2021 33w6d Start: 2237 Stop: 2316 NST RESULTS (REA) OBJECTIVE FINDINGS Temp: 98.2 ??F (36.8 ??C), Pulse: 77, Resp: 18, BP: 101/65 NST Indication(s): Premature rupture of membranes Uterine Irritability: Yes Contractions: Not present Frequency: None per toco OBJECTIVE FINDINGS Movement: Present Monitoring Mode: External Baseline: 135 BPM Variability: Moderate Decelerations: None Accelerations: Yes OTHER INFORMATION Marion Blue RN Associated attestation - Hali Tomas APRN-CNP - 03/04/2021 6:39 AM CDT Non-Stress Test (NST) Oneida Luis [id number] 03/03/2021 Gestational age: 33w6d Indications: pprom Interpretation: Baseline: 135 beats/minute reactive Variability: moderate Contractions: none Decelerations: none Recommendation: Follow up as clinically indicated. AMAURY Patterson * Grisel Pereira RN - 03/03/2021 6:15 PM CDTAssociated Order(s): NON-STRESS TEST Name: Oneida Luis Date of : 1995 Today's Date: 03/03/2021 33w6d Start: 1720 End: 1804 NST RESULTS (REA) OBJECTIVE FINDINGS Temp: 98.1 ??F (36.7 ??C), Pulse: 88, Resp: 18, BP: 118/67 NST Indication(s): Premature rupture of membranes Uterine Irritability: Yes Contractions: Not present OBJECTIVE FINDINGS Movement: Present Monitoring Mode: External Baseline: 145 BPM Variability: Moderate Decelerations: Variable Accelerations: Yes OTHER INFORMATION Grisel Pereira RN Associated attestation - Hali Tomas APRN-CNP - 03/04/2021 6:40 AM CDT Non-Stress Test (NST) Oneida Luis [id number] 03/03/2021 Gestational age: 33w6d Indications: pprom Interpretation: Baseline: 145 beats/minute reactive Variability: moderate Contractions: uterine irritability present Decelerations: none Recommendation: Follow up as clinically indicated. AMAURY Patterson * Grisel Pereira RN - 03/03/2021 11:51 AM CDTAssociated Order(s): NON-STRESS TEST Name: Oneida Luis Date of : 1995 Today's Date: 03/03/2021 33w6d Start: 1113 End: 1143 NST RESULTS (REA) OBJECTIVE FINDINGS Temp: 98.2 ??F (36.8 ??C), Pulse: (!) 110, Resp: 18, BP: 127/74 NST Indication(s): Premature rupture of membranes Uterine Irritability: Yes Contractions: Not present OBJECTIVE FINDINGS Movement: Present Monitoring Mode: External Baseline: 145 BPM Variability: Moderate Decelerations: None Accelerations: Yes OTHER INFORMATION Grisel Pereira RN Associated attestation - Hali Tomas APRN-CNP - 03/03/2021 2:26 PM CDT Non-Stress Test (NST) Oneida Luis [id number] 03/03/2021 Gestational age: 33w6d Indications: pprom Interpretation: Baseline: 145 beats/minute reactive Variability: moderate Contractions: none Decelerations: none Recommendation: Follow up as clinically indicated. AMAURY Patterson * Marion Blue RN - 03/03/2021 12:42 AM CDTAssociated Order(s): NON-STRESS TEST Procedure(s): NONSTRESS TEST Name: Oneida Luis Date of : 1995 Today's Date: 03/03/2021 33w6d Start: 2235 Stop: 2320 NST RESULTS (REA) OBJECTIVE FINDINGS Temp: 98 ??F (36.7 ??C), Pulse: 86, Resp: 18, BP: 114/74 NST Indication(s): Premature rupture of membranes Uterine Irritability: Yes Contractions: Not present Frequency: None per toco OBJECTIVE FINDINGS Movement: Present Monitoring Mode: External Baseline: 135 BPM Variability: Moderate Decelerations: None Accelerations: Yes OTHER INFORMATION Marion Blue RN Associated attestation - Hali Tomas APRN-CNP - 03/03/2021 6:41 AM CDT Non-Stress Test (NST) Oneida Luis [id number] 03/02/2021 Gestational age: 33w5d Indications: pprom Interpretation: Baseline: 135 beats/minute reactive Variability: moderate Contractions: x1 Decelerations: none Recommendation: Follow up as clinically indicated. AMAURY Patterson * Laila Dexter RN - 03/02/2021 5:56 PM CDTProcedure(s): NON-STRESS TEST Name: Oneida Luis Date of : 1995 Today's Date: 03/02/2021 33w5d Start: 1714 End: 1750 NST RESULTS (REA) OBJECTIVE FINDINGS Temp: 97.9 ??F (36.6 ??C), Pulse: 104, Resp: 18, BP: 98/62 NST Indication(s): Premature rupture of membranes Uterine Irritability: Yes Contractions: Not present OBJECTIVE FINDINGS Movement: Present Monitoring Mode: External Baseline: 150 BPM Variability: Moderate Decelerations: None Accelerations: Yes OTHER INFORMATION Laila Dexter RN Associated attestation - Hali Tomas APRN-CNP - 03/03/2021 8:08 AM CDT Non-Stress Test (NST) Oneida Luis [id number] 03/02/2021 Gestational age: 33w5d Indications: pprom Interpretation: Baseline: 145 beats/minute reactive Variability: moderate Contractions: none Decelerations: none Recommendation: Follow up as clinically indicated. AMAURY Patterson * Buffy Collado MD - 03/02/2021 10:22 AM CDTProcedure(s): NON-STRESS TEST Name: Oneida Luis Date of : 1995 Today's Date: 03/02/2021 33w5d Start: 0936 End: 1015 NST RESULTS (REA) OBJECTIVE FINDINGS Temp: 98 ??F (36.7 ??C), Pulse: 85, Resp: 18, BP: 107/73 NST Indication(s): Premature rupture of membranes Uterine Irritability: Yes Contractions: Not present OBJECTIVE FINDINGS Movement: Present Monitoring Mode: External Baseline: 135 BPM Variability: Moderate Decelerations: None Accelerations: Yes OTHER INFORMATION Laila Dexter RN PGY-1 Addendum Indication: PPROM NST: baseline 135 bpm, moderate variability, reactive, no decelerations [place]: irritable, no contractions A/P: well-being reassuring, continue testing as ordered or as otherwise indicated Buffy Collado MD 03/02/2021 10:24 AM Associated attestation - Elisa Krueger MD - 03/02/2021 12:24 PM CDT I have reviewed the tracing and concur with the resident's description and interpretation. The FHT is reactive using 15x15 bpm criteria. No FHR decelerations lasting >30 seconds were detected. Elisa Krueger MD [facility] STAFF * Buffy Collado MD - 03/01/2021 11:52 PM CDTAssociated Order(s): NON- STRESS TEST Procedure(s): NONSTRESS TEST Name: Oneida Luis Date of : 1995 Today's Date: 03/01/2021 33w Start: 2226 Stop: 2304 NST RESULTS (REA) OBJECTIVE FINDINGS Temp: 98.1 ??F (36.7 ??C), Pulse: 94, Resp: 18, BP: 111/71 NST Indication(s): Premature rupture of membranes Uterine Irritability: Yes Contractions: Not present Frequency: None per toco OBJECTIVE FINDINGS Movement: Present Monitoring Mode: External Baseline: 135 BPM Variability: Moderate Decelerations: None Accelerations: Yes OTHER INFORMATION Marion Blue RN PGY-1 Addendum Indication: PPROM NST: baseline 130 bpm, moderate variability, reactive, no decelerations [place]: irritable, no contractions A/P: well-being reassuring, continue testing as ordered or as otherwise indicated Buffy Collado MD 03/02/2021 7:45 AM Associated attestation - Elisa Krueger MD - 03/02/2021 12:24 PM CDT I have reviewed the tracing and concur with the resident's description and interpretation. The FHT is reactive using 15x15 bpm criteria. No FHR decelerations lasting >30 seconds were detected. Elisa Krueger MD [facility] STAFF * Buffy Collado MD - 03/01/2021 5:04 PM CDTProcedure(s): NON-STRESS TEST Name: Oneida Luis Date of : 1995 Today's Date: 03/01/2021 33w4d Start: 1629 End: 1700 NST RESULTS (REA) OBJECTIVE FINDINGS Temp: 98 ??F (36.7 ??C), Pulse: 80, Resp: 18, BP: 108/64 NST Indication(s): Premature rupture of membranes Uterine Irritability: Yes Contractions: Not present OBJECTIVE FINDINGS Movement: Present Monitoring Mode: External Baseline: 140 BPM Variability: Moderate Decelerations: None Accelerations: Yes OTHER INFORMATION Laila Dexter RN PGY-1 Addendum Indication: PPROM NST: baseline 135 bpm, moderate variability, reactive, no decelerations [place]: irritable, no contractions A/P: well-being reassuring, continue testing as ordered or as otherwise indicated Buffy Collado MD 03/02/2021 7:45 AM Associated attestation - Elisa Krueger MD - 03/02/2021 12:23 PM CDT I have reviewed the tracing and concur with the resident's description and interpretation. The FHT is reactive using 15x15 bpm criteria. No FHR decelerations lasting >30 seconds were detected. Elisa Krueger MD [facility] STAFF * Laila Dexter RN - 03/01/2021 12:07 PM CDTProcedure(s): NON-STRESS TEST Name: Oneida Luis Date of : 1995 Today's Date: 03/01/2021 33w4d Start: 0916 End: 1134 NST RESULTS (REA) OBJECTIVE FINDINGS Temp: 98.2 ??F (36.8 ??C), Pulse: 82, Resp: 18, BP: 111/69 NST Indication(s): Premature rupture of membranes Uterine Irritability: Yes Contractions: Irregular Frequency: (irregular, c/o back contractions) Duration (sec) Range: 40-90 Perceived Intensity: Moderate, Strong (states some are strong, some moderate) OBJECTIVE FINDINGS Movement: Present Monitoring Mode: External Baseline: 140 BPM Variability: Moderate Decelerations: None Accelerations: Yes OTHER INFORMATION Laila Dexter RN Associated attestation - Hali Tomas APRN-CNP - 03/01/2021 12:17 PM CDT Non-Stress Test (NST) Oneida Luis [id number] 03/01/2021 Gestational age: 33w4d Indications: pprom Interpretation: Baseline: 145 beats/minute reactive Variability: moderate Contractions: irregular with irritability noted Decelerations: none Recommendation: Follow up as clinically indicated. AMAURY Patterson * Carline Alves RN - 02/28/2021 10:52 PM CDTProcedure(s): NON-STRESS TEST Name: Oneida Luis Date of : 1995 Today's Date: 02/28/2021 33w3d NST RESULTS (REA) Start 221 Stop 2247 OBJECTIVE FINDINGS , , , NST Indication(s): Premature rupture of membranes Uterine Irritability: Yes Contractions: Not present OBJECTIVE FINDINGS Movement: Present Monitoring Mode: External Baseline: 135 BPM Variability: Moderate Decelerations: None Accelerations: Yes OTHER INFORMATION Inpatient Interventions: None Carline Alves RN Associated attestation - Hali Tomas APRN-CNP - 03/01/2021 8:33 AM CDT Non-Stress Test (NST) Oneida Luis [id number] 02/28/2021 Gestational age: 33w3d Indications: pprom Interpretation: Baseline: 135 beats/minute reactive Variability: moderate Contractions: none Decelerations: none Recommendation: Follow up as clinically indicated. AMAURY Patterson * Mahsa Sawant RN - 02/28/2021 6:00 PM CDTAssociated Order(s): NON-STRESS TEST Name: Oneida Luis Date of : 1995 Today's Date: 02/28/2021 Start: 1648 Stop: 172 33w3d NST RESULTS (REA) OBJECTIVE FINDINGS Temp: 98.6 ??F (37 ??C), , Resp: 18, BP: 113/67 NST Indication(s): Premature rupture of membranes Uterine Irritability: No Contractions: Not present OBJECTIVE FINDINGS Movement: Present Monitoring Mode: External Baseline: 145 BPM Variability: Moderate Decelerations: None Accelerations: Yes OTHER INFORMATION Inpatient Interventions: None Mahsa Sawant RN Associated attestation - aHli Tomas APRN-CNP - 03/01/2021 8:34 AM CDT Non-Stress Test (NST) Oneida Luis [id number] 02/28/2021 Gestational age: 33w3d Indications: pprom Interpretation: Baseline: 145 beats/minute reactive Variability: moderate Contractions: none Decelerations: none Recommendation: Follow up as clinically indicated. AMAURY Patterson * Mahsa Sawant RN - 02/28/2021 2:38 PM CDTAssociated Order(s): NON-STRESS TEST Name: Oneida Luis Date of : 1995 Today's Date: 02/28/2021 Start: 1100 Stop: 1129 33w3d NST RESULTS (REA) OBJECTIVE FINDINGS Temp: 97.8 ??F (36.6 ??C), , Resp: 18, BP: 108/62 NST Indication(s): Premature rupture of membranes Uterine Irritability: No Contractions: Not present OBJECTIVE FINDINGS Movement: Present Monitoring Mode: External Baseline: 140 BPM Variability: Moderate Decelerations: None Accelerations: Yes OTHER INFORMATION Inpatient Interventions: None Mahsa Sawant RN Associated attestation - Hali Tomas APRN-CNP - 03/01/2021 8:34 AM CDT Non-Stress Test (NST) Oneida Luis [id number] 02/28/2021 Gestational age: 33w3d Indications: pprom Interpretation: Baseline: 140 beats/minute reactive Variability: moderate Contractions: none Decelerations: none Recommendation: Follow up as clinically indicated. AMAURY Patterson * Luisana Ye MD - 02/27/2021 11:26 PM CDTAssociated Order(s): NON-STRESS TEST Procedure(s): NONSTRESS TEST NST Start: 02-27-20212246 Stop: [id number] Name: Oneida Luis Date of : 1995 Today's Date: 02/27/2021 33w2d NST RESULTS (REA) OBJECTIVE FINDINGS Temp: 97.9 ??F (36.6 ??C), Pulse: 66, Resp: 18, BP: 123/84 NST Indication(s): Premature rupture of membranes Uterine Irritability: Yes Contractions: Irregular Frequency: x1 Duration (sec) Range: 110 seconds Perceived Intensity: Mild OBJECTIVE FINDINGS Movement: Present Monitoring Mode: External Baseline: 135 BPM Variability: Moderate Decelerations: None Accelerations: Yes OTHER INFORMATION Tami Cano RN Non-Stress Test [facility] Patient Name: Oneida Luis LMP: Patient's last menstrual period was 06/15/2020. Indications: PPROM NST date: 02/27/2021 NST duration: >20 mins Interpretation: Baseline: 135 beats/minute moderate variability Reactive Contractions: Uterine irritability Decelerations: none Impression and Plan: FWB reassuring, continue monitoring as scheduled. Luisana Ye MD 02/28/2021 8:52 AM Associated attestation - Fabrice Solis MD - 02/28/2021 9:28 AM CDT U ELECTRIC MOTOR ASSEMBLER Attending: I have reviewed the images and agree with the interpretation for the attached procedure. Fabrice Solis MD * Luisana Ye MD - 02/27/2021 6:43 PM CDTAssociated Order(s): NON-STRESS TEST Name: Oneida Luis Date of : 1995 Today's Date: 02/27/2021 Start: 0936 Stop: 1012 33w2d NST RESULTS (REA) OBJECTIVE FINDINGS Temp: 98.3 ??F (36.8 ??C), Pulse: 84, Resp: 18, BP: 114/68 NST Indication(s): Premature rupture of membranes Uterine Irritability: Yes Contractions: Not present OBJECTIVE FINDINGS Movement: Present Monitoring Mode: External Baseline: 155 BPM Variability: Moderate Decelerations: None Accelerations: Yes OTHER INFORMATION Inpatient Interventions: None Mahsa Sawant RN Non-Stress Test [facility] Patient Name: Oneida Luis LMP: Patient's last menstrual period was 06/15/2020. Indications: PPROM NST date: 02/27/2021 NST duration: >20 mins Interpretation: Baseline: 150 beats/minute moderate variability Reactive Contractions: none Decelerations: none Impression and Plan: FWB reassuring, continue monitoring as scheduled. Luisana Ye MD 02/28/2021 8:52 AM Associated attestation - Fabrice Solis MD - 02/28/2021 9:28 AM CDT [facility] ELECTRIC MOTOR ASSEMBLER Attending: I have reviewed the images and agree with the interpretation for the attached procedure. Fabrice Solis MD * Luisana Ye MD - 02/27/2021 6:42 PM CDTAssociated Order(s): NON-STRESS TEST Name: Oneida Luis Date of : 1995 Today's Date: 02/27/2021 Start: 1728 Stop: 1819 33w2d NST RESULTS (REA) OBJECTIVE FINDINGS Temp: 98.3 ??F (36.8 ??C), Pulse: 84, Resp: 18, BP: 114/68 NST Indication(s): Premature rupture of membranes Uterine Irritability: Yes Contractions: Not present OBJECTIVE FINDINGS Movement: Present Monitoring Mode: External Baseline: 145 BPM Variability: Moderate Decelerations: Variable Accelerations: Yes OTHER INFORMATION Inpatient Interventions: None Mahsa Sawant RN Non-Stress Test [facility] Patient Name: Oneida Luis LMP: Patient's last menstrual period was 06/15/2020. Indications: PPROM NST date: 02/27/2021 NST duration: >20 mins Interpretation: Baseline: 145 beats/minute moderate variability Reactive Contractions: none Decelerations: one shallow variable Impression and Plan: FWB reassuring, continue monitoring as scheduled. Luisana Ye MD 02/28/2021 8:51 AM Associated attestation - Fabrice Solis MD - 02/28/2021 9:29 AM CDT [facility] [employer]IC MOT[employer] ASSEMBLER Attending: I have reviewed the images and agree with the interpretation for the attached procedure. Fabrice Solis MD * Luisana Ye MD - 02/27/2021 2:08 AM CDT Name: Oneida Luis Date of : 1995 Today's Date: 02/27/2021 33w2d NST RESULTS (REA) Start 02/26 0016 Stop 02/27 0056 OBJECTIVE FINDINGS Temp: 97.9 ??F (36.6 ??C), Pulse: 61, Resp: 20, BP: 98/61 NST Indication(s): Premature rupture of membranes Uterine Irritability: Yes Contractions: Not present OBJECTIVE FINDINGS Movement: Present Monitoring Mode: External Baseline: 135 BPM Variability: Moderate Decelerations: None Accelerations: Yes OTHER INFORMATION Brittnee Esparza RN Non-Stress Test [facility] Patient Name: Oneida Luis LMP: Patient's last menstrual period was 06/15/2020. Indications: PPROM NST date: 02/26/21 - 02/27/2021 NST duration: >20 mins Interpretation: Baseline: 135 beats/minute moderate variability Reactive [place]: with uterine irritability Decelerations: none Impression and Plan: FWB reassuring, continue monitoring as scheduled. Luisana eY MD 02/27/2021 8:20 AM Associated attestation - Fabrice Solis MD - 02/27/2021 9:12 AM CDT U ELECTRIC MOTOR ASSEMBLER Attending: I have reviewed the images and agree with the interpretation for the attached procedure. Fabrice Solis MD * Luisana Ye MD - 02/26/2021 6:58 PM CDT Name: Oneida Luis Date of : 1995 Today's Date: 02/26/2021 [id number] 33w1d NST RESULTS (REA) OBJECTIVE FINDINGS Temp: 98.1 ??F (36.7 ??C), Pulse: 77, Resp: 16, BP: 98/58 NST Indication(s): Premature rupture of membranes Uterine Irritability: Yes Contractions: Irregular Frequency: x2 Duration (sec) Range: 50 Perceived Intensity: Mild OBJECTIVE FINDINGS Movement: Present Monitoring Mode: External Baseline: 145 BPM Variability: Moderate Decelerations: None Accelerations: Yes OTHER INFORMATION Kari Hawley RN Non-Stress Test [facility] Patient Name: Oneida Luis LMP: Patient's last menstrual period was 06/15/2020. Indications: PPROM NST date: 02/26/21 NST duration: >20 mins Interpretation: Baseline: 145 beats/minute moderate variability Reactive Decelerations: None [place]: with uterine irritability Impression and Plan: FWB reassuring, continue monitoring as scheduled. Luisana Ye MD 02/27/2021 8:20 AM Associated attestation - Fabrice Solis MD - 02/28/2021 10:13 AM CDT U ELECTRIC MOTOR ASSEMBLER Attending: I have reviewed the images and agree with the interpretation for the attached procedure. Fabrice Solis MD * Kari Hawley RN - 02/26/2021 12:36 PM CDT Name: Oneida Luis Date of : 1995 Today's Date: 02/26/2021 [id number] 33w1d NST RESULTS (REA) OBJECTIVE FINDINGS Temp: 98.4 ??F (36.9 ??C), Pulse: 66, Resp: 18, BP: 92/50 NST Indication(s): Premature rupture of membranes Uterine Irritability: Yes Contractions: Not present OBJECTIVE FINDINGS Movement: Present Monitoring Mode: External Baseline: 140 BPM Variability: Moderate Decelerations: None Accelerations: Yes OTHER INFORMATION Comments: Maternal tracing at 1141 and 1200. Pt off monitor at 1152 to use bathroom. Kari Hawley RN Associated attestation - Hali Tomas APRN-CNP - 02/26/2021 1:57 PM CDT Non-Stress Test (NST) Oneida Luis [id number] 02/26/2021 Gestational age: 33w1d Indications: pprom Interpretation: Baseline: 145 beats/minute reactive Variability: moderate Contractions: none Decelerations: possible variable noted at 11:42, tracing is broken. Tracing maternal Heartrate at 12:00-12:02 Recommendation: Follow up as clinically indicated. AMAURY Patterson * Lucretia Mackay RN - 02/25/2021 11:07 PM CDTProcedure(s): NONSTRESS TEST Name: Oneida Luis Date of : 1995 Today's Date: 02/25/2021 33w0d Start: 2112 Stop: 2158 NST RESULTS (REA) OBJECTIVE FINDINGS Temp: 97.8 ??F (36.6 ??C), Pulse: 67, Resp: 16, BP: 104/64 NST Indication(s): Premature rupture of membranes Uterine Irritability: Yes Contractions: Not present OBJECTIVE FINDINGS Movement: Present Monitoring Mode: External Baseline: 125 BPM Variability: Moderate Decelerations: None Accelerations: Yes OTHER INFORMATION Lucretia Mackay RN Associated attestation - Hali Tomas APRN-CNP - 02/26/2021 9:16 AM CDT Non-Stress Test (NST) Oneida Luis [id number] 02/25/2021 Gestational age: 33w0d Indications: pprom Interpretation: Baseline: 125 beats/minute reactive Variability: moderate Contractions: none Decelerations: none Recommendation: Follow up as clinically indicated. AMAURY Patterson * Jocelyn Christopher RN - 02/25/2021 4:07 PM CDTProcedure(s): NON-STRESS TEST Name: Oneida Luis Date of : 1995 Today's Date: 02/25/2021 33w0d Start: 1525 Stop: 1603 NST RESULTS (REA) OBJECTIVE FINDINGS Temp: 98.3 ??F (36.8 ??C), , Resp: 20, BP: 111/55 NST Indication(s): Premature rupture of membranes Uterine Irritability: Yes Contractions: Not present OBJECTIVE FINDINGS Movement: Present Monitoring Mode: External Baseline: 130 BPM Variability: Moderate Decelerations: None Accelerations: Yes OTHER INFORMATION Joeclyn Christopher RN Associated attestation - Hali Tomas APRN-CNP - 02/26/2021 9:17 AM CDT Non-Stress Test (NST) Oneida Luis [id number] 02/25/2021 Gestational age: 33w0d Indications: pprom Interpretation: Baseline: 130 beats/minute reactive Variability: moderate Contractions: none Decelerations: none Recommendation: Follow up as clinically indicated. AMAURY Patterson * Phil Umana MD - 02/25/2021 6:57 AM CDT Non-Stress Test [facility] Patient Name: Oneida Luis LMP: Patient's last menstrual period was 06/15/2020. Indications: PPROM NST date: 02/24-06/2021 NST duration: >20 mins (2068-2295) Interpretation: Baseline: 120 beats/minute mod variability Reactive Contractions: irregular Decelerations: none Impression and Plan: FWB reassuring, continue monitoring as scheduled. Phil Umana MD 02/25/2021 6:57 AM Associated attestation - Fabrice Solis MD - 02/25/2021 9:46 AM CDT U ELECTRIC MOTOR ASSEMBLER Attending: I have reviewed the images and agree with the interpretation for the attached procedure. Fabrice Solis MD * Phil Umana MD - 02/24/2021 7:59 AM CDT Non-Stress Test [facility] Patient Name: Oneida Luis LMP: Patient's last menstrual period was 06/15/2020. Indications: PPROM NST date: 2118-7379 NST duration: >20 mins Interpretation: Baseline: 120 beats/minute mod variability Reactive Contractions: irregular Decelerations: one late appearing deceleration at 0550 Impression and Plan: FWB reassuring, continue monitoring as scheduled. Phil Umana MD 02/24/2021 7:59 AM Associated attestation - Fabrice Solis MD - 02/24/2021 10:26 AM CDT U ELECTRIC MOTOR ASSEMBLER Attending: I have reviewed the images and agree with the interpretation for the attached procedure. Fabrice Solis MD documented in this encounter Consult Notes * Denise Rodriguez MSW - 03/05/2021 10:17 AM CDTAssociated Order(s): IP CONSULT TO DEPUTY PROGRAM MANAGER SOCIAL SERVICE CONSULT - BRIEF Reason for Referral: Discharge planning for OB concerns CONSULT COMMENT: +UDS MJ Assessment/Interventions/Plan: bottom workerDenise, received consult. SW received consult and met with mother 03/01/21. Please see SW note. Addressed drug screen at that time. SW will follow for baby's UC test. On 03/01/21 pt informed her nurse that she did not want to meet with SW again. Pt had been in need of some new baby items, incuding Pack N' PLay, and SW had spoken with nurse regardingproviding these items if still necessary. SW requested that a nurse provide pt with a Sweet Babiesgift bag and an appropriate Pack N Play, once the baby is born. If items still needed please provide. Pt is an [place] resident. [place] does not accept referrals for +MJ screens alone. Infant to discharge home with mother when medically stable for discharge. SW to follow for infant cord tissue results. MAXWELL Armstrong [phone] PRN Donor Floor Technician * Gemma Law RN - 03/01/2021 10:02 AM CDTAssociated Order(s): IP CONSULT TO VASCULAR ACCESS NURSE Determined patient would benefit from an extended dwell peripheral IV catheter after assessment by the Vascular Access Team. Procedure explained to patient. Midline catheter for IV access placed under sterile technique. Manufacturers recommend approximately 4 weeks maximum dwell time. See Doc. Flowsheet for details. * Gemma Law RN - 02/26/2021 3:15 PM CDTAssociated Order(s): IP CONSULT TO VASCULAR ACCESS NURSE Verbal/non-verbal indicated consent obtained prior to starting procedure. After site cleaned with Chloraprep, peripheral IV placed using ultrasound assessment and ultrasoundneedle guidance. Limited viable peripheral vessels visualized or palpated without ultrasound. See doc flowsheet for details. The Vascular Access Team has placed a peripheral IV called an Accucath. This IV is placed with a guidewire causing less insertion trauma, (guidewire removed intact). Studies have shown these IVs can dwell longer without complications. This IV is flushed and cared for like a normal peripheral IV andis power injectable. If the IV site is complication free, Accucath can dwell up to 30 days per dot etcher apprentice's recommendation. Change dressing prn or at least weekly. * Denise Rodriguez MSW - 02/25/2021 4:01 PM CDTAssociated Order(s): IP CONSULT TO DEPUTY PROGRAM MANAGER SOCIAL SERVICE CONSULT - BRIEF Reason for Referral: Pt would like help preparing for baby at home Assessment/Interventions/Plan: bottom workerDenise, received consult and will follow up with RN and patient/family. Attempted to contact pt by phone. No answer in the room. SW will follow up. 4:50 SW attempted to visit with pt in room 540. Pt has been moved to room 566. P/c to pt's room. Oneida stated that she has not baby items at home. She and her had not yet purchased items and she was to have a baby shower on 02/27/21, but will not make it. SW meet with pt 02/26/21 AM and discuss providing donated Pack N Play and other baby items. Pt stated that her will bring the items home so that they do not need be in her hospital room. MAXWELL Armstrong [phone] PRN Donor Floor Technician * Sabrina Hernandez MD - 02/23/2021 9:26 PM CDTAssociated Order(s): IP CONSULT TO NEONATOLOGY Maternal Consult Note Oneida Luis Today's Date: 02/23/2021 Estimated Gestational Age: 32w6d SRINIVASA: 04/15/21 Estimated Weight: 2172g (02/24) Reason for requesting consultation: PPROM Findings: Mother presented at 32w2d as high risk transfer. ROM on 02/23 around 1130. Admitted to [facility] on 02/23. Received Mg, ANCS (x1 with plan for again on 02/24), and latency antibiotics. Maternal History: OB History 5 Para 3 Term 3 AB 1 Living 3 SAB 1 TAB Ectopic Multiple Live Births 3 No past medical history on file. Current Medications: Followed by 0.9% NaCl injection 3 mL, Intracatheter, q8h acetaminophen (Tylenol) tablet 1,000 mg, Oral, Once betamethasone acet & sod phos (Celestone) injection 12 mg, Intramuscular, Once clindamycin (Cleocin) 900 mg in 50 mL D5W IVPB, Intravenous, q8h docusate sodium (Colace) capsule 100 mg, Oral, BID gentamicin (Garamycin) 396 mg in 0.9% NaCl IV 100 mL IVPB, Intravenous, q24h iron polysaccharides (Niferex 150) capsule 150 mg, Oral, QDAY vitamin with iron tablet 1 tablet, Oral, QDAY valACYclovir (Valtrex) tablet 500 mg, Oral, BID [COMPLETED] azithromycin (Zithromax) tablet 1,000 mg, Oral, Once [START ON 02/25/2021] clindamycin (Cleocin) capsule 300 mg, Oral, q8h lactated ringers infusion, Intravenous, Continuous magnesium sulfate 40 g in 1000 mL infusion, Intravenous, Continuous No current facility-administered medications on file prior to encounter. Current Outpatient Medications on File Prior to Encounter Medication Sig Dispense Refill ??? ferrous sulfate 325 (65 FE) MG tablet Take 325 mg by mouth daily with breakfast ??? Vit-Fe Fumarate-FA ( VITAMIN) 28-0.8 MG tablet Take 1 tablet by mouth once daily Social History: reports that she has been smoking cigarettes. She has never used smokeless tobacco.She reports previous alcohol use. She reports current drug use. Frequency: 7.00 times per week. Drug: Marijuana. Family History: No family history of defects, genetic conditions, or jaundice requiring phototherapy. Feeding: discussed, and patient is agreeable. Briefly discussed adverse outcome risks with 32w6d prematurity with mother at bedside including: SECRETARY TO BO[employer] COMMISSIONERS/development - Discussed effects on feeding ability, poor regulation of temperature and respiratory centers. Respiratory - Discussed possibility of needing respiratory support including intubation with mechanical ventilation. steroids may assist lung maturity. Delayed feeding - Discussed poor feeding/swallowing coordination. Possible need for IV nutrition with TPN and delayed GI feeding. Possible need for gavage feeding by NGT. Delayed feeding may result in oral aversion and oral motor dysfunction. Recommended early expression of breastmilk. Recommend c/s for additional support. Hyperbilirubinemia- Discussed jaundice requiring phototherapy given combined risk factors of prematurity, delayed enteric feeds, and possibility of infection or any condition which may result in hemolysis. Immature immune system- Discussed risk of sepsis and susceptibility of infection. Discussed need for antibiotic treatment after with pending sepsis evaluation. Immediate and prolonged hospital stay - Discussed possible need for ICU care. Discussed possible need for IV lines, umbilical/central lines, possible blood transfusion, intubation/ventilator support.Discussed possible need for infant transfer to [facility] early in life. General Morbidity and Mortality - Reviewed survival data for infants of comparable gestational age and birthweight. Impression: 25 year old y/o woman at 32w6d EGA gestation with threatened PTL due to PPROM. Discussed risks of prematurity: intubation/respiratory support, infection, need for central lines, prolonged NICU stay, feeding support, transfer to [facility], morbidity and mortality. Patient expresses understanding. All questions answered. 1. Introduced above risks and general care, patient understood and questions were answered. 2. Mother aware to contact our team with further questions. 3. NICU to attend delivery and baby to be admitted to NICU after delivery. Thank you for the consult, please contact us for questions. Ria Nice MD Pediatrics Resident Neonatology attending note: I have reviewed the chart and seen the patient, and agree with Dr. Nice's history, assessment, andplan. This is a 25 year old mother at 33w0d with tPTL and PPROM. Mother presented at 32 2/with PPROM (02/23 at 1130AM). Currently s/p ANCS and receiving latency antibiotics. We reviewed the risks of prematurity at 33 wks, including but not limited to: RDS requiring intubation/surfactant/mechanical ventilation/NCPAP/oxygen, hypotension, PDA, feeding immaturity requiring IVF and gavage feeding, risk of infections , risk of jaundice, neurodevelopmental outcomes. Mother asked good questions, and appeared to understand all information she received. I spent 15 minutes on this consultation, at least 50% of which was in direct patient counseling andcoordination of care. Thank you for this consult. Please do not hesitate to contact us with any further questions or concerns, or if there are any clinical changes in mother or baby's status. Sabrina Hernandez MD documented in this encounter Nursing Notes * Meg Malik RN - 03/06/2021 10:30 AM CDT Oneida states she is planning to discharge today but is choosing to not continue with use of breast pumping. She feels her anxiety and depression is getting worse and the fact that she has to leave her baby in the NICU is adding to it. Discussed the fact that her body will still produce some milk she agreed to take a hand pump home to use when she gets engorged. Discussed any milk is collectswould be important to bring to her baby. She voiced understanding of use and cleaning of pump. No further concerns voiced. Meg Aguayo, IBCLC * Sadiq Zuñiga RN - 03/05/2021 10:18 AM CDT This note was copied from a baby's chart. Consult. This is Oneida's fourth baby and she plans on pumping for her baby in NICU @ 34weeks. She has already pumped 3 times but hasn't collected any milk yet. Mom has pendulous breasts with lory nipples. Demonstrated how to hold breasts and do hand expression-slightly painful, unableto see any colostrum. Educated to double pump every 2-3 hours including the night time and record on her pump log for 2 weeks. Oriented to breast pump's initiation phase, and to use it until her milkis in or the first 4-5 days. Taught breast massage/hand expression/hands on pumping to maximize milk production. Demonstrated how to collect/label syringes. Ordered a breast pump from [employer] per [facility] Insurance- Medicaid. Mom states she tried to nurse her last baby, 2 years ago, and didn't make enough milk. documented in this encounter Plan of Treatment Not on file documented as of this encounter Procedures Procedure Name Priority Date/Time Associated Diagnosis Comments IMAGING/RADIOLOGY/XRA Y RESULTS ORDER 03/08/2021 5:21 PM CDT HGB HCT PANEL AM Draw 03/05/2021 7:14 AM CDT PATHOLOGY TISSUE EXAM (STL) Routine 03/04/2021 11:16 PM CDT premature rupture of membranes (PPROM) with unknown onset of labor (HCC) BLOOD GASES CORD ARTERIAL RT STAT 03/04/2021 10:52 PM CDT BLOOD GASES CORD NANCY RT STAT 03/04/2021 10:52 PM CDT TYPE + SCREEN PANEL STAT 03/04/2021 7 :33 AM CDT CBC W AUTO DIFFERENTIAL STAT 03/04/2021 7:33 AM CDT NON-STRESS TEST Routine 03/03/2021 11:32 PM CDT NON-STRESS TEST Routine 03/03/2021 6:15 PM CDT NON-STRESS TEST Routine 03/03/2021 11:51 AM CDT NON-STRESS TEST Routine 03/03/2021 12:42 AM CDT NON-STRESS TEST Routine 03/01/2021 11:52 PM CDT NON-STRESS TEST Routine 02/28/2021 6:00 PM CDT NON-STRESS TEST Routine 02/28/2021 2:38 PM CDT NON-STRESS TEST Routine 02/27/2021 11:26 PM CDT NON-STRESS TEST Routine 02/27/2021 6:43 PM CDT NON-STRESS TEST Routine 02/27/2021 6:42 PM CDT TYPE + SCREEN PANEL Routine 02/26/2021 3 :14 PM CDT CBC W AUTO DIFFERENTIAL Routine 02/26/2021 3:14 PM CDT IRON + TRANSFERRIN PANEL Routine 02/26/2021 3:14 PM CDT FERRITIN Routine 02/26/2021 3:14 PM CDT SONOGRAM - COMPLETE Routine 02/24/2021 9 :45 AM CDT FIBRINOGEN ACTIVITY Routine 02/24/2021 1 :45 AM CDT PTT Routine 02/24/2021 1:45 AM CDT PT-INR Routine 02/24/2021 1:45 AM CDT CBC W AUTO DIFFERENTIAL Routine 02/24/2021 1:45 AM CDT MAGNESIUM BLOOD Routine 02/24/2021 1:45 AM CDT URINE DRUG SCREEN IMMUNOASSAY STAT 02/23/2021 6:23 PM CDT CHLAMYDIA + GC AMPLIFIED PROBE STAT 02/23/2021 6:22 PM CDT TRICHOMONAS RAPID TEST Routine 02/23/2021 6:22 PM CDT BLOOD TYPE VERIFICATION Routine 02/23/2021 6:21 PM CDT CULTURE STREP B STAT 02/23/2021 6:20 PM CDT RUPTURE OF MEMBRANES EVAL STAT 02/23/2021 5:35 PM CDT TYPE + SCREEN PANEL STAT 02/23/2021 4 :53 PM CDT CBC W AUTO DIFFERENTIAL STAT 02/23/2021 4:53 PM CDT documented in this encounter Results * IMAGING RADIOLOGY XRAY RESULTS ORDER (03/08/2021 5:21 PM CDT) Anatomical Region Laterality Modality Other Narrative 03/08/2021 5:21 PM CDT Ordered by an unspecified provider. Scanned Document IMAGING * (ABNORMAL) HGB HCT PANEL (03/05/2021 7:14 AM CDT) Hemoglobin 11.1(L) 12.0 - 15.6 gm/dL 03/05/2021 8:29 AM CDT [facility] Hematocrit 34.4(L) 35.9 - 45.5 % 03/05/2021 8:29 AM CDT [facility] Blood BLOOD SPECIMEN / Unknown Lab Venipuncture / Unknown 03/05/2021 7:14 AM CDT 03/05/2021 8:22 AM CDT Fabrice Solis MD LAB - HEMATOLOGY ORD ERABLES [facility] [address] [place] [address] * PATHOLOGY TISSUE EXAM (STL) (03/04/2021 11:16 PM CDT) Case Report Surgical Pathology Report ? Case: [id number] ? Authorizing Provider: ??Chelsie Astorga MD ?Collected: ? 03/04/2021 11:16 PM ? Ordering Location: ? [facility] LDR ? Received: ?03/05/2021 08:34 AM ? Pathologist: ? Carline Sorto MD ? Specimen: ?Placenta 3rd Trimester ? 03/08/2021 11:28 AM [facility] Final Diagnosis Placenta, vaginal delivery - Small, hypermature placenta (weight <10th percentile for gestational age) - membranes with no histopathologic abnormality - Three-vessel umbilical cord with no histopathologic abnormality 03/08/2021 11:28 AM [facility] Clinical History The patient is a 25-year-old woman at 34 weeks, 0 days gestation, with premature rupture of membranes 02/13. Procedure/findings: vaginal delivery, baby to NICU. 03/08/2021 11:28 AM [facility] Gross Description The requisition and specimen are identified with patient's name and date of . Received in formalin, specimen A, placenta is a placental. The umbilical cord is inserted eccentrically, 3 cm from margin measuring 16.5 cm in length and 9.2 cm in diameter. The cord is trivascular and appropriately coiled, with false knot located distally. The membranes are inserted marginally and are pink to morales and mildly opaque. The placental disc is 291 g measuring 16.5 x 15 x 2.2 cm. The surface is blue-morales with normal vasculature. The maternal surface is disrupted but appears complete. Sectioning shows red-morales, spongy cut surfaces with no lesions. Legal Billing Clerk sections submitted as follows: A1-umbilical cord and membrane roll, A2-placental disc central, A3-placental disc peripheral. LJ 03/08/2021 11:28 AM [facility] Microscopic Description Microscopic examination substantiates the above diagnosis. 03/08/2021 11:28 AM [facility] Disclaimer All histochemical and/or immunohistochemical results are interpreted with controls that demonstrate appropriate staining reactions before reporting results. Note on use of immunocytochemistry reagents: This test was developed and its performance characteristic determined by [facility], Department of Laboratory Medicine. It has not been cleared or approved by the U.S. Food and Drug Administration (FDA). The FDA has determined that such clearance or approval is not necessary. The test is used for clinical purpose. It should not be regarded as investigational or for research. This laboratory is certified to perform high complexity testing. The performance characteristics of the IHC/RENITA assays have been validated on formalin-fixed paraffin embedded tissues only. The assays have not been validated on decalcified tissues. Results should be interpreted with caution. 03/08/2021 11:28 AM CDT [facility] Embedded Images 03/08/2021 11:28 AM CDT [facility] Pathology/Cytolo gy ENTIRE PLACENTA / Unknown Collection / Unknown 03/04/2021 11:16 PM CDT 03/05/2021 8:34 AM CDT Chelsie Astorga MD LAB - PATHOLOGY /CYTOLOGY ORDERABLES [facility] [address] [place] [address] * (ABNORMAL) BLOOD GASES CORD ARTERIAL (03/04/2021 10:52 PM CDT) pH Cord Arterial 7.30 7.20 - 7.34 pH 03/04/2021 11:04 PM CDT [facility] pCO2 Cord Arterial 62(H) 45 - 55 mm hg 03/04/2021 11:04 PM CDT [facility] Comment:H pO2 Cord Arterial 16 12 - 25 mm hg 03/04/2021 11:04 PM CDT [facility] HCO3 Cord Arterial 29.7(H) 22.0 - 24.0 mmol/L 03/04/2021 11:04 PM CDT [facility] Comment:H BE Cord Arterial 1.4 mmol/L 03/04/2021 11:04 PM CDT [facility] O2 Saturation Cord Arterial 18 % 03/04/2021 11:04 PM CDT [facility] Geronimo's Test N/A 03/04/2021 11:04 PM CDT [facility] Sample Site Other 03/04/2021 11:04 PM CDT [facility] Sample Type Cord blood Arterial 03/04/2021 11:04 PM CDT [facility] RES[facility] THERAPY Sales Service Representative ID [id number] 03/04/2021 11:04 PM CDT [facility] Blood, arterial CORD BLOOD SPECIMEN / Unknown 03/04/2021 10:52 PM CDT 03/04/2021 10:52 PM CDT Chelsie Astorga MD LAB - BLOOD GAS ES ORDERABLES Performing Organization Address City/[facility]/ZIP Co de Phone Number [facility] [address] [phone] * (ABNORMAL) BLOOD GASES CORD NANCY (03/04/2021 10:52 PM CDT) pH Cord Venous 7.43(H) 7.28 - 7.40 pH 03/04/2021 11:05 PM CDT [facility] Comment:H pCO2 Cord Venous 35 35 - 45 mm hg 03/04/2021 11:05 PM CDT [facility] pO2 Cord Venous 29 22 - 33 mm hg 03/04/2021 11:05 PM CDT [facility] HCO3 Cord Venous 23 22 - 24 mmol/L 03/04/2021 11:05 PM CDT [facility] Comment:H BE Cord Venous -0.6 mmol/L 03/04/2021 11:05 PM CDT [facility] O2 Saturation Cord Venous 56 % 03/04/2021 11:05 PM CDT [facility] Mode Unknown 03/04/2021 11:05 PM CDT [facility] Geronimo's Test N/A 03/04/2021 11:05 PM CDT [facility] Sample Site Other 03/04/2021 11:05 PM CDT [facility] Sample Type Cord Blood Venous 03/04/2021 11:05 PM CDT [facility] RESP THERAPY Sales Service Representative ID [id number] 03/04/2021 11:05 PM CDT [facility] Blood CORD BLOOD SPECIMEN / Unknown 03/04/2021 10:52 PM CDT 03/04/2021 10:52 PM CDT Chelsie Astorga MD LAB - BLOOD GAS ES ORDERABLES Performing Organization Address City/[facility] Co de Phone Number [facility] [address] [place] [address] * (ABNORMAL) CBC W AUTO DIFFERENTIAL (03/04/2021 7:33 AM CDT) WBC 11.6(H) 4.4 - 10.7 x10E9/L 03/04/2021 7:45 AM CDT [facility] WBC Corrected 03/04/2021 7:45 AM CDT [facility] RBC 3.75(L) 3.80 - 5.20 x10E12/L 03/04/2021 7:45 AM CDT [facility] Hemoglobin 10.7(L) 12.0 - 15.6 gm/dL 03/04/2021 7:45 AM CDT [facility] Hematocrit 32.4(L) 35.9 - 45.5 % 03/04/2021 7:45 AM CDT [facility] MCV 86.4 80.7 - 98.3 fl 03/04/2021 7:45 AM CDT [facility] MCH 28.5 26.7 - 34.0 pg 03/04/2021 7:45 AM CDT [facility] MCHC 33.0 30.8 - 35.9 gm/dL 03/04/2021 7:45 AM CDT [facility] Platelet Count 251 153 - 416 x10E9/L 03/04/2021 7:45 AM CDT [facility] RDW-CV 15.8(H) 12.1 - 14.9 % 03/04/2021 7:45 AM CDT [facility] MPV 9.6 9.4 - 12.9 fl 03/04/2021 7:45 AM CDT [facility] Neutrophils % 64.1 44.0 - 73.0 % 03/04/2021 7:45 AM CDT [facility] Lymphocytes % 22.9 20.0 - 43.0 % 03/04/2021 7:45 AM CDT [facility] Monocytes % 9.7 5.0 - 13.0 % 03/04/2021 7:45 AM CDT [facility] Eosinophils % 2.1 0.0 - 6.0 % 03/04/2021 7:45 AM CDT [facility] Basophils % 0.3 0.0 - 2.0 % 03/04/2021 7:45 AM CDT [facility] Immature Granulocytes 0.9 0 - 1 % 03/04/2021 7:45 AM CDT [facility] Neutrophil Absolute 7.45(H) 2.01 - 7.14 x10E9/L 03/04/2021 7:45 AM CDT [facility] Lymphocytes Absolute 2.67 1.07 - 3.94 x10E9/L 03/04/2021 7:45 AM CDT [facility] Monocytes Absolute 1.13(H) 0.26 - 1.07 x10E9/L 03/04/2021 7:45 AM CDT [facility] Eosinophils Absolute 0.24 0 - 0.47 x10E9/L 03/04/2021 7:45 AM CDT [facility] Basophils Absolute 0.04 0 - 0.08 x10E9/L 03/04/2021 7:45 AM CDT [facility] Immature Granulocytes Absolute 0.11(H) 0.00 - 0.06 x10E9/L 03/04/2021 7:45 AM CDT [facility] nRBC Auto 0 /100 WBC 03/04/2021 7:45 AM CDT [facility] Blood BLOOD SPECIMEN / Unknown Venipuncture / Unknown 03/04/2021 7:33 AM CDT 03/04/2021 7:38 AM CDT Fabrice Solis MD LAB - HEMATOLOGY ORD ERABLES Performing Organization Address City/[facility]/ZIP Co de Phone Number [facility] [address] [place] [address] * TYPE + SCREEN PANEL (03/04/2021 7:33 AM CDT) ABO Rh B POS 03/04/2021 8:20 AM CDT [facility] Comment:History checked. Antibody Screen NEG 8:20 AM CDT [facility] Blood Bank BLOOD SPECIMEN / Unknown Venipuncture / Unknown 03/04/2021 7:33 AM CDT 03/04/2021 7:38 AM CDT Fabrice Solis MD LAB - BLOOD BANK ORD ERABLES [facility] [address] [place] [address] * NON-STRESS TEST (03/03/2021 11:32 PM CDT) Anatomical Region Laterality Modality Other Narrative 03/03/2021 11:32 PM CDT Marion Blue RN ? 03/03/2021 11:33 PM Name: ??Oneida Luis Date of : ??1995 Today's Date: ??03/03/2021 33w6d ?? Start: 2237 Stop: 2316 ?NST RESULTS (REA) OBJECTIVE FINDINGS Temp: 98.2 ??F (36.8 ??C), Pulse: 77, Resp: 18, BP: 101/65 NST Indication(s): Premature rupture of membranes Uterine Irritability: Yes Contractions: Not present Frequency: None per toco OBJECTIVE FINDINGS Movement: Present Monitoring Mode: External Baseline: 135 BPM Variability: Moderate Decelerations: None Accelerations: Yes OTHER INFORMATION Marion Blue RN Fabrice Solis MD [facility] ORDERABLES * NON-STRESS TEST (03/03/2021 6:15 PM CDT) Anatomical Region Laterality Modality Other Narrative 03/03/2021 6:15 PM CDT Grisel Pereira RN ? 03/03/2021 ??6:16 PM Name: ??Oneida Luis Date of : ??1995 Today's Date: ??03/03/2021 33w6d Start: 1720 End: 1804 ?NST RESULTS (REA) OBJECTIVE FINDINGS Temp: 98.1 ??F (36.7 ??C), Pulse: 88, Resp: 18, BP: 118/67 NST Indication(s): Premature rupture of membranes Uterine Irritability: Yes Contractions: Not present OBJECTIVE FINDINGS Movement: Present Monitoring Mode: External Baseline: 145 BPM Variability: Moderate Decelerations: Variable Accelerations: Yes OTHER INFORMATION Grisel Pereira RN Fabrice Solis MD [facility] ORDERABLES * NON-STRESS TEST (03/03/2021 11:51 AM CDT) Anatomical Region Laterality Modality Other Narrative 03/03/2021 11:51 AM CDT Grisel Pereira RN ? 03/03/2021 11:52 AM Name: ??Oneida Luis Date of : ??1995 Today's Date: ??03/03/2021 33w6d Start: 1112 End: 1143 ?NST RESULTS (REA) OBJECTIVE FINDINGS Temp: 98.2 ??F (36.8 ??C), Pulse: (!) 110, Resp: 18, BP: 127/74 NST Indication(s): Premature rupture of membranes Uterine Irritability: Yes Contractions: Not present OBJECTIVE FINDINGS Movement: Present Monitoring Mode: External Baseline: 145 BPM Variability: Moderate Decelerations: None Accelerations: Yes OTHER INFORMATION Grisel Pereira RN Fabrice Solis MD [facility] ORDERABLES * NON-STRESS TEST (03/03/2021 12:42 AM CDT) Anatomical Region Laterality Modality Other Narrative 03/03/2021 12:42 AM CDT Marion Blue RN ? 03/03/2021 12:43 AM Name: ??Oneida Luis Date of : ??1995 Today's Date: ??03/03/2021 33w6d Start: 2235 Stop: 2320 ?NST RESULTS (REA) OBJECTIVE FINDINGS Temp: 98 ??F (36.7 ??C), Pulse: 86, Resp: 18, BP: 114/74 NST Indication(s): Premature rupture of membranes Uterine Irritability: Yes Contractions: Not present Frequency: None per toco OBJECTIVE FINDINGS Movement: Present Monitoring Mode: External Baseline: 135 BPM Variability: Moderate Decelerations: None Accelerations: Yes OTHER INFORMATION Marion Blue RN Fabrice Solis MD [facility] ORDERABLES * NON-STRESS TEST (03/01/2021 11:52 PM CDT) Anatomical Region Laterality Modality Other Narrative 03/01/2021 11:52 PM CDT Buffy Collado MD ? 03/02/2021 ??7:46 AM Name: ??Oneida Luis Date of : ??1995 Today's Date: ??03/01/2021 33w4d Start: 2226 Stop: 2304 ?NST RESULTS (REA) OBJECTIVE FINDINGS Temp: 98.1 ??F (36.7 ??C), Pulse: 94, Resp: 18, BP: 111/71 NST Indication(s): Premature rupture of membranes Uterine Irritability: Yes Contractions: Not present Frequency: None per toco OBJECTIVE FINDINGS Movement: Present Monitoring Mode: External Baseline: 135 BPM Variability: Moderate Decelerations: None Accelerations: Yes OTHER INFORMATION Marion Blue RN PGY-1 Addendum Indication: PPROM NST: baseline 130 bpm, moderate variability, reactive, no decelerations [place]: irritable, no contractions A/P: well-being reassuring, continue testing as ordered or as otherwise indicated Buffy Collado MD 03/02/2021 7:45 AM Fabrice Solis MD [facility] ORDERABLES * NON-STRESS TEST (02/28/2021 6:00 PM CDT) Anatomical Region Laterality Modality Other Narrative 02/28/2021 6:00 PM CDT Mahsa Sawant RN ? 02/28/2021 ??6:00 PM Name: ??Oneida Luis Date of : ??1995 Today's Date: ??02/28/2021 Start: 1647 Stop: 172 33w3d ?NST RESULTS (REA) OBJECTIVE FINDINGS Temp: 98.6 ??F (37 ??C), ??, Resp: 18, BP: 113/67 NST Indication(s): Premature rupture of membranes Uterine Irritability: No Contractions: Not present OBJECTIVE FINDINGS Movement: Present Monitoring Mode: External Baseline: 145 BPM Variability: Moderate Decelerations: None Accelerations: Yes OTHER INFORMATION Inpatient Interventions: None Mahsa Sawant RN [facility]rice OCHOA ORDERABLES * NON-STRESS TEST (02/28/2021 2:38 PM CDT) Anatomical Region Laterality Modality Other Narrative 02/28/2021 2:38 PM CDT Mahsa Sawant RN ? 02/28/2021 ??2:39 PM Name: ??Oneida Luis Date of : ??1995 Today's Date: ??02/28/2021 Start: 1100 Stop: 1129 33w3d ?NST RESULTS (REA) OBJECTIVE FINDINGS Temp: 97.8 ??F (36.6 ??C), ??, Resp: 18, BP: 108/62 NST Indication(s): Premature rupture of membranes Uterine Irritability: No Contractions: Not present OBJECTIVE FINDINGS Movement: Present Monitoring Mode: External Baseline: 140 BPM Variability: Moderate Decelerations: None Accelerations: Yes OTHER INFORMATION Inpatient Interventions: None Mahsa Sawant RN Fabrice Solis MD [facility] ORDERABLES * NON-STRESS TEST (02/27/2021 11:26 PM CDT) Anatomical Region Laterality Modality Other Narrative 02/27/2021 11:26 PM CDT Luisana Ye MD ? 02/28/2021 ??8:53 AM NST Start: 02-27-2021; 2246 Stop: 02-27-2021; 2325 Name: ??Oneida Luis Date of : ??1995 Today's Date: ??02/27/2021 33w2d ?? NST RESULTS (REA) OBJECTIVE FINDINGS Temp: 97.9 ??F (36.6 ??C), Pulse: 66, Resp: 18, BP: 123/84 NST Indication(s): Premature rupture of membranes Uterine Irritability: Yes Contractions: Irregular Frequency: x1 Duration (sec) Range: 110 seconds Perceived Intensity: Mild OBJECTIVE FINDINGS Movement: Present Monitoring Mode: External Baseline: 135 BPM Variability: Moderate Decelerations: None Accelerations: Yes OTHER INFORMATION Tami Cano RN Non-Stress Test [facility] Patient Name: Oneida Luis LMP: Patient's last menstrual period was 06/15/2020. Indications: PPROM NST date: 02/27/2021 NST duration: >20 mins Interpretation: Baseline: ??135 beats/minute moderate variability Reactive Contractions: ??Uterine irritability Decelerations: ??none Impression and Plan: FWB reassuring, continue monitoring as scheduled. Luisana Ye MD 02/28/2021 8:52 AM Fabrice KRUEGER ORDERABLES * NON-STRESS TEST (02/27/2021 6:43 PM CDT) Anatomical Region Laterality Modality Other Narrative 02/27/2021 6:43 PM CDT Luisana Ye MD ? 02/28/2021 ??8:52 AM Name: ??Oneida Luis Date of : ??1995 Today's Date: ??02/27/2021 Start: 935 Stop: 1011 33w2d ?NST RESULTS (REA) OBJECTIVE FINDINGS Temp: 98.3 ??F (36.8 ??C), Pulse: 84, Resp: 18, BP: 114/68 NST Indication(s): Premature rupture of membranes Uterine Irritability: Yes Contractions: Not present OBJECTIVE FINDINGS Movement: Present Monitoring Mode: External Baseline: 155 BPM Variability: Moderate Decelerations: None Accelerations: Yes OTHER INFORMATION Inpatient Interventions: None Mahsa Sawant RN Non-Stress Test [facility] Patient Name: Oneida Luis LMP: Patient's last menstrual period was 06/15/2020. Indications: PPROM NST date: 02/27/2021 NST duration: >20 mins Interpretation: Baseline: ??150 beats/minute moderate variability Reactive Contractions: ??none Decelerations: ??none Impression and Plan: FWB reassuring, continue monitoring as scheduled. Luisana Ye MD 02/28/2021 8:52 AM Fabrice Solis MD [facility] ORDERABLES * NON-STRESS TEST (02/27/2021 6:42 PM CDT) Anatomical Region Laterality Modality Other Narrative 02/27/2021 6:42 PM CDT Luisana Ye MD ? 02/28/2021 ??8:51 AM Name: ??Oneida Luis Date of : ??1995 Today's Date: ??02/27/2021 Start: 1727 Stop: 181 33w2d ?NST RESULTS (REA) OBJECTIVE FINDINGS Temp: 98.3 ??F (36.8 ??C), Pulse: 84, Resp: 18, BP: 114/68 NST Indication(s): Premature rupture of membranes Uterine Irritability: Yes Contractions: Not present OBJECTIVE FINDINGS Movement: Present Monitoring Mode: External Baseline: 145 BPM Variability: Moderate Decelerations: Variable Accelerations: Yes OTHER INFORMATION Inpatient Interventions: None Mahsa Sawant RN Non-Stress Test [facility] Patient Name: Oneida Luis LMP: Patient's last menstrual period was 06/15/2020. Indications: PPROM NST date: 02/27/2021 NST duration: >20 mins Interpretation: Baseline: ??145 beats/minute moderate variability Reactive Contractions: ??none Decelerations: one shallow variable Impression and Plan: FWB reassuring, continue monitoring as scheduled. Luisana Ye MD 02/28/2021 8:51 AM Fabrice Solis MD [facility] ORDERABLES * (ABNORMAL) IRON + TRANSFERRIN PANEL (02/26/2021 3:14 PM CDT) Pathologist [facility] Iron 43(L) 50 - 170 ug/dL 02/26/2021 3:44 PM CDT [facility] Comment:Attention clinician: Reference Range change. Transferrin 399(H) 180 - 382 mg/dL 02/26/2021 3:44 PM CDT [facility] Comment:Attention clinician: Reference Range change. TIBC Calculated 499(H) 240 - 450 ug/dL 02/26/2021 3:44 PM CDT [facility] Iron Saturation % 9(L) 20 - 50 % 02/26/2021 3:44 PM CDT [facility] Blood BLOOD SPECIMEN / Unknown Venipuncture / Unknown 02/26/2021 3:14 PM CDT 02/26/2021 3:25 PM CDT Hali Tomas APRN-PRESS OPERATOR [facility] [employer]K REEL OPERATOR RY ORDERABLES [facility] [address] [place] [address] * FERRITIN (02/26/2021 3:14 PM CDT) [facility] Ferritin 7 5 - 204 ng/mL 02/26/2021 4:12 PM CDT [facility] Blood BLOOD SPECIMEN / Unknown Venipuncture / Unknown 02/26/2021 3:14 PM CDT 02/26/2021 3:25 PM CDT Hali Tomas TOSHIA-PRESS OPERATOR [facility] - DYE BECK REEL OPERATOR RY ORDERABLES Performing Organization Address [facility] Co de Phone Number [facility] [address] [place] [address] * TYPE + SCREEN PANEL (02/26/2021 3:14 PM CDT) Pathologist [facility] ABO Rh B POS 02/26/2021 4:55 PM CDT [facility] Comment:History checked. Antibody Screen NEG 4:55 PM CDT [facility] Blood Bank BLOOD SPECIMEN / Unknown Venipuncture / Unknown 02/26/2021 3:14 PM CDT 02/26/2021 3:25 PM CDT Hali Tomas TOSHIA-PRESS OPERATOR [facility] - BLOOD B ANK ORDERABLES Performing Organization Address [facility] de Phone Number [facility] [address] [place] [address] * (ABNORMAL) CBC W AUTO DIFFERENTIAL (02/26/2021 3:14 PM CDT) Pathologist [facility] WBC 10.1 4.4 - 10.7 x10E9/L 02/26/2021 3:32 PM CDT [facility] WBC Corrected 02/26/2021 3:32 PM CDT [facility] RBC 3.96 3.80 - 5.20 x10E12/L 02/26/2021 3:32 PM CDT [facility] Hemoglobin 11.3(L) 12.0 - 15.6 gm/dL 02/26/2021 3:32 PM CDT [facility] Hematocrit 34.9(L) 35.9 - 45.5 % 02/26/2021 3:32 PM CDT [facility] MCV 88.1 80.7 - 98.3 fl 02/26/2021 3:32 PM CDT [facility] MCH 28.5 26.7 - 34.0 pg 02/26/2021 3:32 PM CDT [facility] MCHC 32.4 30.8 - 35.9 gm/dL 02/26/2021 3:32 PM CDT [facility] Platelet Count 271 153 - 416 x10E9/L 02/26/2021 3:32 PM CDT [facility] RDW-CV 15.7(H) 12.1 - 14.9 % 02/26/2021 3:32 PM CDT [facility] MPV 9.7 9.4 - 12.9 fl 02/26/2021 3:32 PM CDT [facility] Neutrophils % 64.7 44.0 - 73.0 % 02/26/2021 3:32 PM CDT [facility] Lymphocytes % 23.4 20.0 - 43.0 % 02/26/2021 3:32 PM CDT [facility] Monocytes % 10.0 5.0 - 13.0 % 02/26/2021 3:32 PM CDT [facility] Eosinophils % 0.9 0.0 - 6.0 % 02/26/2021 3:32 PM CDT [facility] Basophils % 0.1 0.0 - 2.0 % 02/26/2021 3:32 PM CDT [facility] Immature Granulocytes 0.9 0 - 1 % 02/26/2021 3:32 PM CDT [facility] Neutrophil Absolute 6.57 2.01 - 7.14 x10E9/L 02/26/2021 3:32 PM CDT [facility] Lymphocytes Absolute 2.37 1.07 - 3.94 x10E9/L 02/26/2021 3:32 PM CDT [facility] Monocytes Absolute 1.01 0.26 - 1.07 x10E9/L 02/26/2021 3:32 PM CDT [facility] Eosinophils Absolute 0.09 0 - 0.47 x10E9/L 02/26/2021 3:32 PM CDT [facility] Basophils Absolute 0.01 0 - 0.08 x10E9/L 02/26/2021 3:32 PM CDT [facility] Immature Granulocytes Absolute 0.09(H) 0.00 - 0.06 x10E9/L 02/26/2021 3:32 PM CDT [facility] nRBC Auto 0 /100 WBC 02/26/2021 3:32 PM CDT [facility] Blood BLOOD SPECIMEN / Unknown Venipuncture / Unknown 02/26/2021 3:14 PM CDT 02/26/2021 3:25 PM CDT Hali Tomas FOURDRINIER WIRE WEAVER-PRESS OPERATOR [facility] - HEMATOL OGY ORDERABLES Performing Organization Address [facility]/State/[facility] Co de Phone Number [facility] [address] [place] [address] * SONOGRAM - COMPLETE (02/24/2021 9:45 AM CDT) Anatomical Region Laterality Modality Other 02/24/2021 9:45 AM CDT Narrative 02/24/2021 11:55 AM CDT ?[facility] ? - [place] ? [facility] ?PHONE: ??FAX: Pat. Name: ?ONEIDA LUIS. No: ?[id number] Study Date: ?? 02/24/2021 ??9:45am , Age: ? 1995, 25 Pregnancies: ?? 5, Para 3, Ab 1 Height: ? 65 in Weight: ? 166 lb LMP: ?Unknown GA by Base: ?? 32w6d ?? SRINIVASA: 04/15/2021 GA by US: ? 33w1d ?? SRINIVASA: 04/13/2021 GA Selected: ??32w6d (From [facility]) SRINIVASA: ?04/15/2021 Referring MD: Junie Brizuela MD Tourist Escort: ??April Hernandez, RDMS, RDCS CPT4: ? 14227 BMI: ?27.62 Room: ? 540 Hist/Ind: ? Unknown LMP ?Hx ?EIF ?PPROM MEASUREMENTS & AGE ? GROWTH EVALUATION Measurement ??GA ? Range ? Srce %for GA Ratios ----- ---- ------- BPD ??8.4 cm 33w6d (20z3r-20x3z) Hadl BPD 71% FL/BPD 0.71 (0.71 - 0.87* HC ??30.7 cm 34w1d (46k8f-70d5i) Hadl HC ??49% FL/AC ??0.20 (0.20 - 0.24) AC ??29.7 cm 33w5d (04u5f-14w7f) Hadl AC ??74% HC/AC ??1.03 (0.95 - 1.14) FL ?? 6.0 cm 31w0d (23p3v-06u1k) Hadl FL ??5% CI ? 0.77 (0.70 - 0.86) HL ?? 5.2 cm 30w1d (66p9y-32l2b) Cyril HL ??6% GA for sonogram 33w1d (73p4p-59x8l) ?? Weight Estimate: based on (BPD,HC,AC,FL) Avg ?Weight: 2092 gm (1786-2397gm) Had ? : 4lbs, 9oz ? Normal: 2133 gm (1600- 2666gm) Had ? Wt% ? 44% for 32w6d Heart Rate: 142 bpm Amniotic Fluid Index: 12.7cm (08.3-24.5) Q1: 2.8cm ??Q2: 4.1cm ??Q3: 2.0cm ??Q4: 3.8cm ?? EVAL, PLACENTA Presentation: breech Placenta: posterior:fundal Heart Rate: 142 bpm Amniotic Fluid Volume: normal CLINICAL SUMMARY Study Number: 3 ?? A single fetus is seen in breech presentation. ??The measurements today are consistent with appropriate interval growth. ??The SRINIVASA is based on a prior ultrasound examination (confirmed). ??The amniotic fluid volume is within normal limits. ?? IMPRESSION: Single, live, intrauterine at 32w6d ?? Appropriate size and interval growth Amniotic fluid volume: within normal limits ?? RECOMMEND: Follow up ultrasound as clinically indicated and/or per the inpatient team Thank you for allowing us the opportunity to care for your patient. ?? cc: ??Inpatient at time of study ? Sylvester Sheehan MD ?<Electronic Signature> ??02/24/2021 11:55am Fabrice Solis MD [facility] ORDERABLES * (ABNORMAL) MAGNESIUM BLOOD (02/24/2021 1:45 AM CDT) [facility] Magnesium 6.0(HH) 1.6 - 2.6 mg/dL 02/24/2021 2:30 AM CDT [facility] Blood BLOOD SPECIMEN / Unknown Lab Venipuncture / Unknown 02/24/2021 1:45 AM CDT 02/24/2021 1:59 AM CDT Fabrice Solis MD LAB - CHEMISTRY YIMI MACIAS [facility] [address] [phone] * (ABNORMAL) FIBRINOGEN ACTIVITY (02/24/2021 1:45 AM CDT) Fibrinogen 418(H) 200 - 400 mg/dL 02/24/2021 2:13 AM CDT [facility] Blood BLOOD SPECIMEN / Unknown Lab Venipuncture / Unknown 02/24/2021 1:45 AM CDT 02/24/2021 1:59 AM CDT Fabrice Solis MD LAB - COAGULATION OR DERABLES Performing Organization Address [facility] de Phone Number [facility] [address] [place] [phone] * PTT (02/24/2021 1:45 AM CDT) Pathologist [facility] PTT 23.9 23.0 - 38.4 sec 02/24/2021 2:12 AM CDT [facility] Blood BLOOD SPECIMEN / Unknown Lab Venipuncture / Unknown 02/24/2021 1:45 AM CDT 02/24/2021 1:59 AM CDT Narrative [facility] - 02/24/2021 2:12 AM CDT Heparin Therapeutic Range for PTT: ??71.0 - 109.0 seconds. Fabrice Solis MD LAB - COAGULATION OR DERABLES Performing Organization Address [facility] de Phone Number [facility] [address] [place] [phone] * PT-INR (02/24/2021 1:45 AM CDT) Pathologist [facility] PT 13.3 12.1 - 14.8 sec 02/24/2021 2:11 AM CDT [facility] INR 1.0 0.9 - 1.1 02/24/2021 2:11 AM CDT [facility] Blood BLOOD SPECIMEN / Unknown Lab Venipuncture / Unknown 02/24/2021 1:45 AM CDT 02/24/2021 1:59 AM CDT Narrative [facility] - 02/24/2021 2:11 AM CDT Conventional Warfarin Anticoagulant Therapy: INR Reference Range: ??2.0-3.0 Intensive Warfarin Anticoagulant Therapy: INR Reference Range: ? 2.5-3.5 Fabrice Solis MD LAB - COAGULATION OR DERABLES Performing Organization Address City/State/[facility] Co de Phone Number [facility] [address] [place], [place] [id number] * (ABNORMAL) CBC W AUTO DIFFERENTIAL (02/24/2021 1:45 AM CDT) WBC 10.5 4.4 - 10.7 x10E9/L 02/24/2021 2:04 AM CDT [facility] WBC Corrected 02/24/2021 2:04 AM CDT [facility] RBC 3.65(L) 3.80 - 5.20 x10E12/L 02/24/2021 2:04 AM CDT [facility] Hemoglobin 10.3(L) 12.0 - 15.6 gm/dL 02/24/2021 2:04 AM CDT [facility] Hematocrit 31.6(L) 35.9 - 45.5 % 02/24/2021 2:04 AM CDT [facility] MCV 86.6 80.7 - 98.3 fl 02/24/2021 2:04 AM CDT [facility] MCH 28.2 26.7 - 34.0 pg 02/24/2021 2:04 AM CDT [facility] MCHC 32.6 30.8 - 35.9 gm/dL 02/24/2021 2:04 AM CDT [facility] Platelet Count 246 153 - 416 x10E9/L 02/24/2021 2:04 AM CDT [facility] RDW-CV 15.0(H) 12.1 - 14.9 % 02/24/2021 2:04 AM CDT [facility] MPV 9.7 9.4 - 12.9 fl 02/24/2021 2:04 AM CDT [facility] Neutrophils % 86.9(H) 44.0 - 73.0 % 02/24/2021 2:04 AM CDT [facility] Lymphocytes % 10.6(L) 20.0 - 43.0 % 02/24/2021 2:04 AM CDT [facility] Monocytes % 1.9(L) 5.0 - 13.0 % 02/24/2021 2:04 AM CDT [facility] Eosinophils % 0.0 0.0 - 6.0 % 02/24/2021 2:04 AM CDT [facility] Basophils % 0.0 0.0 - 2.0 % 02/24/2021 2:04 AM CDT [facility] Immature Granulocytes 0.6 0 - 1 % 02/24/2021 2:04 AM CDT [facility] Neutrophil Absolute 9.14(H) 2.01 - 7.14 x10E9/L 02/24/2021 2:04 AM CDT [facility] Lymphocytes Absolute 1.12 1.07 - 3.94 x10E9/L 02/24/2021 2:04 AM CDT [facility] Monocytes Absolute 0.20(L) 0.26 - 1.07 x10E9/L 02/24/2021 2:04 AM CDT [facility] Eosinophils Absolute 0.00 0 - 0.47 x10E9/L 02/24/2021 2:04 AM CDT [facility] Basophils Absolute 0.00 0 - 0.08 x10E9/L 02/24/2021 2:04 AM CDT [facility] Immature Granulocytes Absolute 0.06 0.00 - 0.06 x10E9/L 02/24/2021 2:04 AM CDT [facility] nRBC Auto 0 /100 WBC 02/24/2021 2:04 AM CDT [facility] Blood BLOOD SPECIMEN / Unknown Lab Venipuncture / Unknown 02/24/2021 1:45 AM CDT 02/24/2021 1:59 AM CDT Fabrice Solis MD LAB - HEMATOLOGY ORD ERABLES [facility] [address] [place] [address] * (ABNORMAL) DRUG SCREEN TOX URINE PANEL (02/23/2021 6:23 PM CDT) [facility] Amphetamines Screen Urine Not detected Not detected 02/23/2021 7:09 PM CDT [facility] Barbiturates Screen Urine Not detected Not detected 02/23/2021 7:09 PM CDT [facility] Benzodiazepines Screen Urine Not detected Not detected 02/23/2021 7:09 PM CDT [facility] Cannabinoids Screen Urine Detected(A) Not detected 02/23/2021 7:09 PM CDT [facility] Cocaine Screen Urine Not detected Not detected 02/23/2021 7:09 PM CDT [facility] Fentanyl Urine Not detected Not detected 02/23/2021 7:09 PM CDT [facility] Methadone Screen Urine Not detected Not detected 02/23/2021 7:09 PM CDT [facility] Opiate Screen Urine Not detected Not detected 02/23/2021 7:09 PM CDT [facility] Phencyclidine Screen Urine Not detected Not detected 02/23/2021 7:09 PM CDT [facility] Urine URINE / Unknown Collection / Unknown 02/23/2021 6:23 PM CDT 02/23/2021 6:39 PM CDT [facility] - 02/23/2021 7:09 PM CDT This drug screen is designed for MEDICAL purposes only. It is not to be used for legal purposes, including but not limited to worker's comp, police investigations, occupational issues, child custody, etc. ??Any positive result is only presumptive and must be confirmed with a separate confirmatory test ordered by the physician. Drug Screening Test Cutoff Values: AMPHETAMINES ?1000 ng/mL BARBITURATES ? 200 ng/mL BENZODIAZEPINES ?200 ng/mL CANNABINOIDS(THC) ?? 50 ng/mL COCAINE ?300 ng/mL FENTANYL ? 1 ng/mL METHADONE ?300 ng/mL OPIATES ?300 ng/mL PHENCYCLIDINE(PCP) ??25 ng/mL Fabrice Solis MD LAB - URINE CHEMISTR Y ORDERABLES [facility] [address] [place], [place] [id number] * TRICHOMONAS RAPID TEST (02/23/2021 6:22 PM CDT) Trichomonas Rapid Test Negative Negative 02/23/2021 7:05 PM CDT [facility] Microbiology VAGINAL SWAB / Unknown Collection / Unknown 02/23/2021 6:22 PM CDT 02/23/2021 6:39 PM CDT Fabrice Solis MD LAB - MICROBIOLOGY O RDERABLES Performing Organization Address [facility] Co de Phone Number [facility] [address] [place] [phone] * CHLAMYDIA + GC AMPLIFIED PROBE (STL) (02/23/2021 6:22 PM CDT) Chlamydia Amplified Probe Negative Negative 02/24/2021 5:54 AM CDT [facility] GC Amplified Probe Negative Negative 02/24/2021 5:54 AM CDT [facility] Microbiology PART OF UTERINE CERVIX / Unknown Collection / Unknown 02/23/2021 6:22 PM CDT 02/23/2021 6:39 PM CDT Narrative [facility] - 02/24/2021 5:54 AM CDT Results based on detection/no detection of ribosomal RNA by amplified method. Fabrice Solis MD LAB - MICROBIOLOGY O RDERABLES Performing Organization Address [facility] Co de Phone Number [facility] [address] [phone] * BLOOD TYPE VERIFICATION (02/23/2021 6:21 PM CDT) ABO Rh B POS 02/23/2021 7:0 4 PM CDT [facility] Blood Bank BLOOD SPECIMEN / Unknown Venipuncture / Unknown 02/23/2021 6:21 PM CDT 02/23/2021 6:33 PM CDT Fabrice Solis MD LAB - BLOOD BANK ORD ERABLES Performing Organization Address City/[facility] Co de Phone Number [facility] [address] [place] [address], [facility] [phone] * CULTURE STREP B (02/23/2021 6:20 PM CDT) Culture Strep B Negative for beta-hemolytic Streptococcus Group B ARTIE 02/27/2021 5:36 AM CDT [facility] Microbiology MISCELLANEOUS SAMPLES / Unknown Collection / Unknown 02/23/2021 6:20 PM CDT 02/23/2021 6:39 PM CDT Fabrice Solis MD LAB - MICROBIOLOGY O RDERABLES Performing Organization Address [facility]/ZIP Co de Phone Number [facility] [address] [phone] * (ABNORMAL) RUPTURE OF MEMBRANES EVAL (02/23/2021 5:35 PM CDT) RUPTURE OF MEMBRANES POSITIVE(A ) NEGATIVE 02/23/2021 5:47 PM CDT [facility] Fluid VAGINAL SWAB / Unknown Collection / Unknown 02/23/2021 5:35 PM CDT 02/23/2021 5:38 PM CDT Narrative [facility] - 02/23/2021 5:47 PM CDT A rupture of membranes diagnosis should not be based on any single test and the results should be interpreted in conjunction with other clinical information. This test may report positive results in patients with intact membranes and therefore decisions to induce labor should not be based solely on the ROM Plus test results. ROM Plus test kits will function properly with trace amounts of blood in the sample. Significant amounts of bloody discharge may cause the test to malfunction and testing of these samples is not recommended. Elevated serum, urine, cord blood, and amniotic fluid as well as maternal serum levels of AFP have been reported in the literature in various developmental disorders such as neural-tube defects, hypothyroidism, autoimmune states, congenital heart defects, cystic fibrosis, etc. ROM Plus has not been evaluated for potential interference in these conditions. Fabrice Solis MD LAB - BODY FLUID ORD ERABLES Performing Organization Address City/[facility]/ZIP Co de Phone Number [facility] [address] [place] [address] * (ABNORMAL) CBC W AUTO DIFFERENTIAL (02/23/2021 4:53 PM CDT) WBC 13.4(H) 4.4 - 10.7 x10E9/L 02/23/2021 5:52 PM CDT [facility] WBC Corrected 02/23/2021 5:52 PM CDT [facility] RBC 3.85 3.80 - 5.20 x10E12/L 02/23/2021 5:52 PM CDT [facility] Hemoglobin 10.8(L) 12.0 - 15.6 gm/dL 02/23/2021 5:52 PM CDT [facility] Hematocrit 33.5(L) 35.9 - 45.5 % 02/23/2021 5:52 PM CDT [facility] MCV 87.0 80.7 - 98.3 fl 02/23/2021 5:52 PM CDT [facility] MCH 28.1 26.7 - 34.0 pg 02/23/2021 5:52 PM CDT [facility] MCHC 32.2 30.8 - 35.9 gm/dL 02/23/2021 5:52 PM CDT [facility] Platelet Count 239 153 - 416 x10E9/L 02/23/2021 5:52 PM CDT [facility] RDW-CV 15.3(H) 12.1 - 14.9 % 02/23/2021 5:52 PM CDT [facility] MPV 10.4 9.4 - 12.9 fl 02/23/2021 5:52 PM CDT [facility] Neutrophils % 89.5(H) 44.0 - 73.0 % 02/23/2021 5:52 PM CDT [facility] Lymphocytes % 8.4(L) 20.0 - 43.0 % 02/23/2021 5:52 PM CDT [facility] Monocytes % 1.3(L) 5.0 - 13.0 % 02/23/2021 5:52 PM CDT [facility] Eosinophils % 0.1 0.0 - 6.0 % 02/23/2021 5:52 PM CDT [facility] Basophils % 0.1 0.0 - 2.0 % 02/23/2021 5:52 PM CDT [facility] Immature Granulocytes 0.6 0 - 1 % 02/23/2021 5:52 PM CDT [facility] Neutrophil Absolute 12.02(H) 2.01 - 7.14 x10E9/L 02/23/2021 5:52 PM CDT [facility] Lymphocytes Absolute 1.13 1.07 - 3.94 x10E9/L 02/23/2021 5:52 PM CDT [facility] Monocytes Absolute 0.17(L) 0.26 - 1.07 x10E9/L 02/23/2021 5:52 PM CDT [facility] Eosinophils Absolute 0.02 0 - 0.47 x10E9/L 02/23/2021 5:52 PM CDT [facility] Basophils Absolute 0.02 0 - 0.08 x10E9/L 02/23/2021 5:52 PM CDT [facility] Immature Granulocytes Absolute 0.08(H) 0.00 - 0.06 x10E9/L 02/23/2021 5:52 PM CDT [facility] nRBC Auto 0 /100 WBC 02/23/2021 5:52 PM CDT [facility] Blood BLOOD SPECIMEN / Unknown Lab Venipuncture / Unknown 02/23/2021 4:53 PM CDT 02/23/2021 5:47 PM CDT Fabrice Solis MD LAB - HEMATOLOGY ORD ERABLES [facility] [address] [place] [address] * TYPE + SCREEN PANEL (02/23/2021 4:53 PM CDT) ABO Rh B POS 02/23/2021 6:28 PM CDT [facility] Comment:No history; collect retype. Antibody Screen NEG 6:28 PM CDT [facility] Blood Bank BLOOD SPECIMEN / Unknown Lab Venipuncture / Unknown 02/23/2021 4:53 PM CDT 02/23/2021 5:47 PM CDT Fabrice Solis MD LAB - BLOOD BANK ORD ERABLES [facility] [address] [place] [address], [facility] [phone] documented in this encounter Visit Diagnoses Diagnosis Premature rupture of membranes, unspecified duration to onset of labor, unspecified gestational age (HCC)- Primary Anemia affecting , antepartum (HCC) Weeks of gestation of not specified (HCC) state, incidental premature rupture of membranes (PPROM) with unknown onset of labor (HCC) Encounter for care and examination of mother immediately after delivery (HCC) Premature rupture of membranes (HCC) Premature rupture of membranes in , unspecified as to episode of care premature rupture of membranes (PPROM) with unknown onset of labor ([facility]) Hx of section Other postprocedural status Herpes 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) Other maternal viral disease complicating , childbirth, or the puerperium, unspecified as to episode of care Iron deficiency anemia during (HCC) Marijuana use Cannabis abuse, unspecified Breech presentation (HCC) Breech presentation without mention of version, unspecified as to episode of care Encounter for ultrasound to assess interval growth of fetus ([facility]) documented in this encounter Administered Medications Inactive Administered Medications - up to 3 most recent administrations Medication Order MAR Action Action Date Dose Rate Site 0.9% NaCl infusion ADS Med 1 dose, Starting on 02/27/21 at 0927, Until 02/27/21 at 1351, Mahsa Sawant: cabinet override $ New Bag/Syringe 02/27/2021 1:51 PM CDT 250 mL 0.9% NaCl injection 1-10 mL 1-10 mL, Intracatheter, PRN, Other, peripheral line flush, Starting on Tu02/23/21 at 1636, Until 03/01/21 at 1431, Flush peripheral IV catheter with 1-10 mL of normal saline before and after medications and prn to clear blood from the line or to verify patency. $ Given 02/26/2021 3:15 PM CDT 10 mL 0.9% NaCl injection 10-40 mL 10-40 mL, Intracatheter, EVERY 8 HOURS, First dose on Mon03/01/21 at 1400, Until Discontinued, Flush each lumen of mid-line with 10ml NS IVP every 8 hours (regardless of continuous IV infusion). Flushing may be contraindicated if concentrated drips are infusing. $ Given 03/04/2021 11:27 PM CDT 10 mL $ Given 03/04/2021 5:03 AM CDT 10 mL $ Given 03/03/2021 8:55 PM CDT 10 mL 0.9% NaCl injection 10-40 mL 10-40 mL, Intravenous, PRN, Other, mid-line flush, Starting on Mon03/01/21 at 1001, Until Mon03/05/21 at 0150, Flush each lumen of mid-line with 10ml NS IVP before and after medication/solution administration, before and after blood product administration, when obtaining blood sample, discard 5-10ml blood, then obtain sample. Upon completion, pulse flush with 20ml sterile NS IVP and PRN to determine patency. $ Given 03/01/2021 10:06 AM CDT 10 mL 0.9% NaCl injection 10-40 mL 10-40 mL, Intracatheter, EVERY 8 HOURS, First dose on Mon03/05/21 at 1400, Until Discontinued, Flush each lumen of Mid-Line with 10 ml NS IVP every 8 hours (regardless of continuous IV infusion). Flushing may be contraindicated if concentrated drips are infusing. $ Given 03/06/2021 9:23 AM CDT 10 mL $ Given 03/05/2021 11:16 PM CDT 10 mL $ Given 03/05/2021 2:37 PM CDT 10 mL 0.9% NaCl injection 10-40 mL 10-40 mL, Intracatheter, PRN, Other, MID line flush, Starting on Mon03/05/21 at 0939, Until Mon03/06/21 at 1408, Flush each lumen of Mid-Line with 10ml NS IVP before and after medication/solution administration for patency and blood return. Flush each lumen of Mid-Line with 20ml NS IVP after each infusion of blood products or lipids, and after each blood draw. $ Given 03/05/2021 9:59 AM CDT 10 mL 0.9% NaCl injection 3 mL 3 mL, Intracatheter, EVERY 8 HOURS, First dose on Mon02/23/21 at 1715, Until Discontinued, Flush peripheral IV catheter with 3 mL of normal saline every 8 hours. $ Given 02/28/2021 5:42 AM CDT 3 mL $ Given 02/27/2021 1:47 PM CDT 3 mL $ Given 02/27/2021 6:02 AM CDT 10 mL 0.9% NaCl injection 3 mL 3 mL, Intracatheter, EVERY 8 HOURS, First dose on Mon03/05/21 at 0200, Until Discontinued, $ Given 03/05/2021 5:14 AM CDT 3 mL acetaminophen (Tylenol) tablet 1,000 mg 1,000 mg, Oral, ONCE, 1 dose, On Mon02/24/21 at 0015 $ Given 02/24/2021 12:07 AM CDT 1,000 mg acetaminophen (Tylenol) tablet 1,000 mg 1,000 mg, Oral, ONCE, 1 dose, On Mon02/25/21 at 0315 $ Given 02/25/2021 2:56 AM CDT 1,000 mg acetaminophen (Tylenol) tablet 1,000 mg 1,000 mg, Oral, ONCE, 1 dose, On Mon03/01/21 at 1030 $ Given 03/01/2021 10:22 AM CDT 1,000 mg acetaminophen (Tylenol) tablet 650 mg 650 mg, Oral, EVERY 6 HOURS PRN, Mild Pain, Starting on Mon03/05/21 at 0150, Until 03/06/21 at 1408, $ Given 03/06/2021 9:22 AM CDT 650 mg $ Given 03/06/2021 1:21 AM CDT 650 mg $ Given 03/05/2021 6:55 PM CDT 650 mg azithromycin (Zithromax) tablet 1,000 mg 1,000 mg, Oral, ONCE, 1 dose, On Mon02/23/21 at 1915, Indication for anti-infective therapy: Chronic prophylaxis $ Given 02/23/2021 6:55 PM CDT 1,000 mg betamethasone acet & sod phos (Celestone) injection 12 mg 12 mg, Intramuscular, ONCE, 1 dose, On Mon02/24/21 at 1330, Protect from light. $ Given 02/24/2021 2:00 PM CDT 12 mg Left Dorsogluteal bisacodyl EC (Dulcolax) tablet 5 mg 5 mg, Oral, DAILY PRN, Constipation, Starting on Mon02/23/21 at 1636, Until Mon03/05/21 at 0150, Use MOM first. If MOM ineffective then use bisacodyl. If bisacodyl ineffective use Fleets enema. $ Given 02/25/2021 3:45 PM CDT 5 mg calcium carbonate (Tums) chew tablet 2 tablet 2 tablet, Oral, EVERY 4 HOURS PRN, GI Upset, Starting on Mon02/23/21 at 1636, Until Mon03/05/21 at 0150 $ Given 03/04/2021 5:03 AM CDT 2 tablets $ Given 03/03/2021 3:30 PM CDT 2 tablets $ Given 03/03/2021 11:05 AM CDT 2 tablets clindamycin (Cleocin) 900 mg in 50 mL D5W IVPB 900 mg, at 100 mL/hr, Intravenous, EVERY 8 HOURS, 6 doses, First dose on Mon02/23/21 at 1900, Last dose on Mon02/25/21 at 1100, Indication for anti-infective therapy: Chronic prophylaxis $ New Bag/Syringe 02/25/2021 12:04 PM CDT 900 mg 100 mL/hr Current Rate 02/25/2021 4:12 AM CDT 100 mL/hr $ New Bag/Syringe 02/25/2021 4:11 AM CDT 900 mg 100 mL /hr clindamycin (Cleocin) capsule 300 mg 300 mg, Oral, EVERY 8 HOURS, 15 doses, First dose on Mon02/25/21 at 2200, Last dose on Mon03/02/21 at 1400, Indication for anti-infective therapy: Chronic prophylaxis $ Given 03/02/2021 2:41 PM CDT 300 mg $ Given 03/02/2021 5:54 AM CDT 300 mg $ Given 03/01/2021 8:39 PM CDT 300 mg cyclobenzaprine (Flexeril) tablet 10 mg 10 mg, Oral, ONCE, 1 dose, On Mon03/05/21 at 1500 $ Given 03/05/2021 2:36 PM CDT 10 mg cyclobenzaprine (Flexeril) tablet 10 mg 10 mg, Oral, ONCE, 1 dose, On Mon03/05/21 at 2145 $ Given 03/05/2021 9:33 PM CDT 10 mg docusate sodium (Colace) capsule 100 mg 100 mg, Oral, 2 TIMES DAILY, First dose on Mon02/23/21 at 2100, Until Discontinued $ Given 03/04/2021 8:04 AM CDT 100 mg $ Given 03/03/2021 9:17 AM CDT 100 mg $ Given 03/02/2021 8:36 PM CDT 100 mg docusate sodium (Colace) capsule 100 mg 100 mg, Oral, 2 TIMES DAILY, 730 doses, First dose on Mon03/05/21 at 0200, Last dose on Mon03/04/22 at 0900, $ Given 03/05/2021 9:22 PM CDT 100 mg $ Given 03/05/2021 9:58 AM CDT 100 mg famotidine (Pepcid) tablet 20 mg 20 mg, Oral, 2 TIMES DAILY, First dose on Mon02/28/21 at 1100, Until Discontinued $ Given 03/04/2021 11:26 PM CDT 20 m g $ Given 03/04/2021 8:03 AM CDT 20 mg $ Given 03/03/2021 8:55 PM CDT 20 mg famotidine (Pepcid) tablet 20 mg 20 mg, Oral, 2 TIMES DAILY, 730 doses, First dose on Mon03/05/21 at 0200, Last dose on Mon03/04/22 at 0900, $ Given 03/05/2021 9:22 PM CDT 20 mg fentaNYL (PF) (Sublimaze) injection 100 mcg 100 mcg, Intravenous, ONCE, 1 dose, On Mon03/04/21 at 1330 $ Given 03/04/2021 1:04 PM CDT 100 mcg fentaNYL (PF) (Sublimaze) injection 100 mcg 100 mcg, Intravenous, ONCE, 1 dose, On Mon03/04/21 at 1430 $ Given 03/04/2021 2:07 PM CDT 100 mcg gentamicin (Garamycin) 396 mg in 0.9% NaCl IV 100 mL IVPB 396 mg (rounded from 395 mg = 5 mg/kg ? 79 kg), at 200 mL/hr, Intravenous, EVERY 24 HOURS, 2 doses, First dose on Mon02/23/21 at 1830, Last dose on Mon02/24/21 at 1830, Indication for anti-infective therapy: Chronic prophylaxis $ New Bag/Syringe 02/24/2021 6:40 PM CDT 396 mg 200 mL/hr $ New Bag/Syringe 02/23/2021 6:33 PM CDT 396 mg 200 mL /hr ibuprofen (Motrin) tablet 600 mg 600 mg, Oral, EVERY 6 HOURS, 1460 doses, First dose on Mon03/05/21 at 0000, Last dose on Mon03/04/22 at 1700, Maximum allowable amount = 3200 mg / 24 hours., $ Given 03/06/2021 10:57 AM CDT 600 mg $ Given 03/06/2021 5:16 AM CDT 600 mg $ Given 03/05/2021 6:55 PM CDT 600 mg iron polysaccharides (Niferex 150) capsule 150 mg 150 mg, Oral, DAILY, First dose on Mon02/23/21 at 1645, Until Discontinued $ Given 03/04/2021 8:03 AM CDT 150 mg $ Given 03/03/2021 9:17 AM CDT 150 mg $ Given 03/02/2021 9:09 AM CDT 150 mg iron sucrose (Venofer) 300 mg in 0.9% NaCl IV 265 mL IVPB 300 mg, at 176.67 mL/hr, Intravenous, DAILY, 3 doses, First dose on Mon02/27/21 at 0900, Last dose on Mon03/01/21 at 0900 $ New Bag/Syringe 03/01/2021 11:37 AM CDT 300 mg 176.67 mL/hr $ New Bag/Syringe 02/27/2021 1:57 PM CDT 300 mg 176.67 mL/hr ketorolac (Toradol) injection 30 mg 30 mg, Intravenous, ONCE, 1 dose, On Mon03/05/21 at 2300 $ Given 03/05/2021 11:15 PM CDT 30 mg lactated ringers infusion at 50 mL/hr, Intravenous, CONTINUOUS, Starting on Mon02/23/21 at 1830, Until Mon02/28/21 at 1015 $ New Bag/Syringe 02/24/2021 7:51 AM CDT 50 mL/hr $ New Bag/Syringe 02/23/2021 5:57 PM CDT 50 mL/ hr lactated ringers infusion at 999 mL/hr, Intravenous, ONCE, 1 dose, On Mon03/01/21 at 1030 $ New Bag/Syringe 03/01/2021 10:16 AM CDT 999 mL/hr lactated ringers infusion at 125 mL/hr, Intravenous, CONTINUOUS, Starting on Mon03/04/21 at 0945, Until Mon03/05/21 at 0150 Current Rate 03/04/2021 8:53 PM CDT 125 mL/hr $ New Bag/Syringe 03/04/2021 7:31 PM CDT 125 mL /hr $ New Bag/Syringe 03/04/2021 4:40 PM CDT 125 mL /hr lactated ringers IV bolus 1,000 mL, at 983.61 mL/hr, Administer over 61 Minutes, ONCE, 1 dose, On Mon02/25/21 at 0315 $ Bolus New Bag 02/25/2021 3:43 AM CDT 1,000 mL 983.61 mL/hr $ New Bag/Syringe 02/25/2021 2:59 AM CDT 1,000 mL 983.61 mL/hr lidocaine PF (Xylocaine Mpf) 1 % injection Intradermal, ONCE, 1 dose, On Mon03/01/21 at 1030, Use lidocaine intradermally to produce wheal to locally anesthetize site if patient has NKA to Lidocaine. $ Given 03/01/2021 10:06 AM CDT 2 mL Left Arm magnesium sulfate 40 g in 1000 mL infusion 2 g/hr (50 mL/hr), Intravenous, CONTINUOUS, Starting on Mon02/23/21 at 1815, Until Mon02/24/21 at 1400 Rate Change 02/24/2021 8:23 AM CDT 2 g/hr 50 mL/hr $ New Bag/Syringe 02/24/2021 7:57 AM CDT 2.5 g/hr 62.5 m L/hr Rate Change 02/23/2021 8:28 PM CDT 2.5 g/hr 62.5 mL/hr ondansetron (disintegrating) (Zofran ODT) tablet 4 mg 4 mg, Oral, ONCE, 1 dose, On Mon03/01/21 at 0815, Dissolved orally on tongue Dissolved orally on tongue $ Given 03/01/2021 8:11 AM CDT 4 mg ondansetron (Zofran) injection 4 mg 4 mg, Intravenous, EVERY 6 HOURS PRN, Nausea/Vomiting, Starting on Mon02/23/21 at 1636, Until Mon03/05/21 at 0150, Start with ondansetron. If ondansetron ineffective use metoclopramide. If metoclopramide ineffective use prochlorperazine. $ Given 03/04/2021 8:08 AM CDT 4 mg $ Given 03/02/2021 10:39 PM CDT 4 mg $ Given 02/24/2021 9:30 AM CDT 4 mg oxyCODONE (immediate release) (Roxicodone) tablet 5 mg 5 mg, Oral, ONCE, 1 dose, On Mon03/05/21 at 0100 $ Given 03/05/2021 12:59 AM CDT 5 mg oxytocin (Pitocin) 30 units in 500 mL 0.9% sodium chloride infusion 125-1,000 cole-units/min (125-1,000 mL/hr), Intravenous, CONTINUOUS PRN, post placenta, Starting on Estelita 03/04/21 at 0847, Until Mon03/05/21 at 0150, Infuse first bag POST-DELIVERY at 1,000 cole-units/min, then decrease rate to 125 cole-units/min until discontinued. ADMINISTER AFTER THE ANTERIOR SHOULDER OR WITH DELIVERY OF THE PLACENTA. $ New Bag/Syringe 03/04/2021 11:00 PM CDT 125 cole-units/min 125 mL/hr Bolus Current Bag/Med 03/04/2021 10:44 PM CDT 500 cole-un its/min 500 mL/hr oxytocin (Pitocin) 30 units in 500 mL 0.9% sodium chloride infusion 0-20 cole-units/min (0-20 mL/hr), Intravenous, CONTINUOUS, Starting on Estelita 03/04/21 at 0930, Until Mon03/05/21 at 0150, Titration Parameters: Standard Dose, Indication: Induction/Augmentation of labor, Initiate infusion at: 2 cole-units/min, Titrate infusion by: 2 cole-units/min, Titrate every: 30 minutes, To maintain: May increase or decrease infusion to maintain contractions 2-3 minutes apart in the presence of reassuring heart tracing, but not to exceed 5 contractions in 10 minutes or exceed max infusion rate., Decrease Oxytocin rate: May decrease Oxytocin by half current dose in the presence of uterine tachysystole (greater than 5 contractions in 10 minutes) and notify provider. May decrease oxytocin by half current dose at the time of rupture of membranes once verified with provider, Discontinue Oxytocin infusion: Discontinue oxytocin immediately for abnormal or indeterminate status, and notify provider. Rate Change 03/04/2021 9:48 PM CDT 10 cole-units/min 10 mL/hr Rate Change 03/04/2021 8:22 PM CDT 14 cole-units/min 14 m L/hr Rate Change 03/04/2021 6:57 PM CDT 12 cole-units/min 12 m L/hr vitamin with iron tablet 1 tablet 1 tablet, Oral, DAILY, First dose on Mon02/23/21 at 1645, Until Discontinued $ Given 03/04/2021 8:04 AM CDT 1 tablet $ Given 03/03/2021 9:17 AM CDT 1 tablet $ Given 03/02/2021 9:09 AM CDT 1 tablet vitamin with iron tablet 1 tablet 1 tablet, Oral, DAILY, 365 doses, First dose on Mon03/05/21 at 0900, Last dose on Mon03/04/22 at 0900, $ Given 03/06/2021 9:22 AM CDT 1 tablet $ Given 03/05/2021 9:58 AM CDT 1 tablet simethicone (Mylicon) chew tablet 160 mg 160 mg, Oral, QID PRN (after meals and at bedtime), Gas Pain, Starting on Mon02/23/21 at 1636, Until Mon03/05/21 at 0150 $ Given 03/02/2021 7:08 PM CDT 160 mg valACYclovir (Valtrex) tablet 500 mg 500 mg, Oral, 2 TIMES DAILY, First dose on Mon02/23/21 at 1800, Until Discontinued, Indication for anti-infective therapy: Chronic prophylaxis $ Given 03/04/2021 11:26 PM CDT 500 mg $ Given 03/04/2021 8:04 AM CDT 500 mg $ Given 03/03/2021 8:54 PM CDT 500 mg documented in this encounter Active and Recently Administered Medications Times are shown in CDT. Scheduled Medication Order 03/04/2021 03/05/2021 03/06/2021 0.9% NaCl injection 10-40 mL (CANCELED) 10-40 mL, Intracatheter, EVERY 8 HOURS, First dose on Mon03/01/21 at 1400, Until Discontinued, Flush each lumen of mid-line with 10ml NS IVP every 8 hours (regardless of continuous IV infusion). Flushing may be contraindicated if concentrated drips are infusing. 0503 ($ Given - Provider: Marion Blue RN)1408 (Not Administered - Provider: Sharifa Foley RN - Reason: IV Currently Infusing)2327 ($ Given - Provider: Margareth Armstrong, PIO) 0.9% NaCl injection 10-40 mL 10-40 mL, Intracatheter, EVERY 8 HOURS, First dose on Mon03/05/21 at 1400, Until Discontinued, Flush each lumen of Mid-Line with 10 ml NS IVP every 8 hours (regardless of continuous IV infusion). Flushing may be contraindicated if concentrated drips are infusing. 1437 ($ Given - Provider: Sabrina Francisco RN)2316 ($ Given - Provider: Andre Adam RN) 0923 ($ Given - Provider: Sabrina Francisco RN) 0.9% NaCl injection 3 mL (CANCELED) 3 mL, Intracatheter, EVERY 8 HOURS, First dose on Mon03/05/21 at 0200, Until Discontinued, 0213 (Not Administered - Provider: Sarah Barraza RN - Reason: IV Currently Infusing)0514 ($ Given - Provider: Sarah Barraza RN) cyclobenzaprine (Flexeril) tablet 10 mg (COMPLETED) 10 mg, Oral, ONCE, 1 dose, On Mon03/05/21 at 1500 1436 ($ Given - Provider: Sabrina Francisco RN) cyclobenzaprine (Flexeril) tablet 10 mg (COMPLETED) 10 mg, Oral, ONCE, 1 dose, On Mon03/05/21 at 2145 2133 ($ Given - Provider: Brie Ronquillo LPN) docusate sodium (Colace) capsule 100 mg (CANCELED) 100 mg, Oral, 2 TIMES DAILY, First dose on Mon02/23/21 at 2100, Until Discontinued 0804 ($ Given - Provider: Grisel Pereira RN)2328 (Not Administered - Provider: Margareth Armstrong RN - Reason: Refused-Patient) docusate sodium (Colace) capsule 100 mg 100 mg, Oral, 2 TIMES DAILY, 730 doses, First dose on Mon03/05/21 at 0200, Last dose on Mon03/04/22 at 0900, 0213 (Not Administered - Provider: Sarah Barraza RN - Reason: Meal time altered)0958 ($ Given - Provider: Sabrina Francisco RN)212 ($ Given - Provider: Brie Ronquillo LPN) 0923 (Not Administered - Provider: Sabrina Francisco RN - Reason: Refused-Patient) famotidine (Pepcid) tablet 20 mg (CANCELED) 20 mg, Oral, 2 TIMES DAILY, First dose on Mon02/28/21 at 1100, Until Discontinued 0803 ($ Given - Provider: Grisel Pereira RN)2326 ($ Given - Provider: Margareth Armstrong RN) famotidine (Pepcid) tablet 20 mg 20 mg, Oral, 2 TIMES DAILY, 730 doses, First dose on Mon03/05/21 at 0200, Last dose on Mon03/04/22 at 0900, 0214 (Not Administered - Provider: Sarah Barraza RN - Reason: Meal time altered)0947 (Not Administered - Provider: Sabrina Francisco RN - Reason: Refused-Patient)212 ($ Given - Provider: Brie Ronquillo LPN) 0922 (Not Administered - Provider: Sabrina Francisco RN - Reason: Refused-Patient) fentaNYL (PF) (Sublimaze) injection 100 mcg (COMPLETED) 100 mcg, Intravenous, ONCE, 1 dose, On Estelita 03/04/21 at 1330 1304 ($ Given - Provider: Sharifa Foley RN)1333 (Not Administered - Provider: Sharifa Foley RN - Reason: Documented on duplicate row) fentaNYL (PF) (Sublimaze) injection 100 mcg (COMPLETED) 100 mcg, Intravenous, ONCE, 1 dose, On Estelita 03/04/21 at 1430 1407 ($ Given - Provider: Sharifa Foley RN) ibuprofen (Motrin) tablet 600 mg 600 mg, Oral, EVERY 6 HOURS, 1460 doses, First dose on Mon03/05/21 at 0000, Last dose on Mon03/04/22 at 1700, Maximum allowable amount = 3200 mg / 24 hours., 2326 ($ Given - Provider: Margareth Armstrong RN) 0514 ($ Given - Provider: Sarah Barraza RN)1310 ($ Given - Provider: Sabrina Francisco RN)1855 ($ Given - Provider: Sabrina Francisco RN) 0000 (Not Administered - Provider: Brie Ronquillo LPN - Reason: See Comments)0516 ($ Given - Provider: Brie Ronquillo LPN)1057 ($ Given - Provider: Sabrina Francisco RN) iron polysaccharides (Niferex 150) capsule 150 mg (CANCELED) 150 mg, Oral, DAILY, First dose on Mon02/23/21 at 1645, Until Discontinued 0803 ($ Given - Provider: Grisel Pereira RN) ketorolac (Toradol) injection 30 mg (COMPLETED) 30 mg, Intravenous, ONCE, 1 dose, On Mon03/05/21 at 2300 2315 ($ Given - Provider: Andre Adam RN) oxyCODONE (immediate release) (Roxicodone) tablet 5 mg (COMPLETED) 5 mg, Oral, ONCE, 1 dose, On Mon03/05/21 at 0100 0059 ($ Given - Provider: Margareth Armstrong RN) vitamin with iron tablet 1 tablet (CANCELED) 1 tablet, Oral, DAILY, First dose on Mon02/23/21 at 1645, Until Discontinued 0804 ($ Given - Provider: Grisel Pereira RN) vitamin with iron tablet 1 tablet 1 tablet, Oral, DAILY, 365 doses, First dose on Mon03/05/21 at 0900, Last dose on Mon03/04/22 at 0900, 0958 ($ Given - Provider: Sabrina Francisco RN) 0922 ($ Given - Provider: Sabrina Francisco RN) valACYclovir (Valtrex) tablet 500 mg (CANCELED) 500 mg, Oral, 2 TIMES DAILY, First dose on Mon02/23/21 at 1800, Until Discontinued, Indication for anti-infective therapy: Chronic prophylaxis 0804 ($ Given - Provider: Grisel Pereira, PIO)2326 ($ Given - Provider: Margareth Armstrong, PIO) Continuous Medication Order 03/04/2021 03/05/2021 03/06/2021 lactated ringers infusion (CANCELED) at 125 mL/hr, Intravenous, CONTINUOUS, Starting on Estelita 03/04/21 at 0945, Until Mon03/05/21 at 0150 0918 ($ New Bag/Syringe - Provider: Sharifa Foley RN)1518 ($ Bolus New Bag - Provider: Sharifa Foley RN)1539 ($ Bolus New Bag - Provider: Sharifa Foley RN)1640 ($ New Bag/Syringe - Provider: Sharifa Foley RN)1931 ($ New Bag/Syringe - Provider: Margareth Armstrong, RN)2053 (Current Rate - Provider: Margareth Armstrong, PIO) oxytocin (Pitocin) 30 units in 500 mL 0.9% sodium chloride infusion (CANCELED) 0-20 cole-units/min (0-20 mL/hr), Intravenous, CONTINUOUS, Starting on Estelita 03/04/21 at 0930, Until Mon03/05/21 at 0150, Titration Parameters: Standard Dose, Indication: Induction/Augmentation of labor, Initiate infusion at: 2 cole-units/min, Titrate infusion by: 2 cole-units/min, Titrate every: 30 minutes, To maintain: May increase or decrease infusion to maintain contractions 2-3 minutes apart in the presence of reassuring heart tracing, but not to exceed 5 contractions in 10 minutes or exceed max infusion rate., Decrease Oxytocin rate: May decrease Oxytocin by half current dose in the presence of uterine tachysystole (greater than 5 contractions in 10 minutes) and notify provider. May decrease oxytocin by half current dose at the time of rupture of membranes once verified with provider, Discontinue Oxytocin infusion: Discontinue oxytocin immediately for abnormal or indeterminate status, and notify provider. 0920 ($ New Bag/Syringe - Provider: Sharifa Foley RN)0950 (Rate Change - Provider: Sharifa Foley RN)1021 (Rate Change - Provider: Sharifa Foley RN)1100 (Rate Change - Provider: Sharifa Foley RN)1130 (Rate Change - Provider: Sharifa Foley RN)1202 (Rate Change - Provider: Sharifa Foley RN)1322 (Rate Change - Provider: Sharifa Foley RN)1359 (Rate Change - Provider: Sharifa Foley RN)1857 (Rate Change - Provider: Sharifa Foley RN)2021 (Rate Change - Provider: Margareth Armstrong, RN)2148 (Rate Change - Provider: Margareth Armstrong RN) PRN Medication Order 03/04/2021 03/05/2021 03/06/2021 0.9% NaCl injection 10-40 mL 10-40 mL, Intracatheter, PRN, Other, MID line flush, Starting on Mon03/05/21 at 0939, Until 03/06/21 at 1408, Flush each lumen of Mid-Line with 10ml NS IVP before and after medication/solution administration for patency and blood return. Flush each lumen of Mid-Line with 20ml NS IVP after each infusion of blood products or lipids, and after each blood draw. 0959 ($ Given - Provider: Sabrina Francisco RN) 0.9% NaCl injection 3 mL 3 mL, Intracatheter, PRN, Other, peripheral line flush, Starting on Mon03/05/21 at 0150, Until 03/06/21 at 1408, Flush after each use and blood draws., acetaminophen (Tylenol) tablet 650 mg 650 mg, Oral, EVERY 6 HOURS PRN, Mild Pain, Starting on Mon03/05/21 at 0150, Until 03/06/21 at 1408, 0651 ($ Given - Provider: Sarah Barraza RN)1310 ($ Given - Provider: Sabrina Francisco RN)1855 ($ Given - Provider: Sabrina Francisco RN) 0121 ($ Given - Provider: Brie Ronquillo LPN)0922 ($ Given - Provider: Sabrina Francisco RN) benzocaine-menthol (Dermoplast) spray Topical, PRN, Mild Pain, Starting on Mon03/05/21 at 0150, Until 03/06/21 at 1408, Apply to affected area. . WASTE DISPOSAL INSTRUCTION: Send to Pharmacy for Disposal. . , calcium carbonate (Tums) chew tablet 2 tablet (CANCELED) 2 tablet, Oral, EVERY 4 HOURS PRN, GI Upset, Starting on Mon02/23/21 at 1636, Until Mon03/05/21 at 0150 0503 ($ Given - Provider: Marion Blue RN) calcium carbonate (Tums) chew tablet 2 tablet 2 tablet, Oral, EVERY 4 HOURS PRN, GI Upset, Starting on Mon03/05/21 at 0150, Until 03/06/21 at 1408, diphenhydrAMINE (Benadryl) capsule 25 mg 25 mg, Oral, EVERY 6 HOURS PRN, Itching, Starting on Mon03/05/21 at 0150, Until 03/06/21 at 1408, hemorrhoidal (Preparation H) ointment OINT Rectal, 3 TIMES DAILY PRN, Hemorrhoids, Starting on Mon03/05/21 at 0150, Until 03/06/21 at 1408, lanolin topical Topical, PRN, Sore or cracked nipples., Starting on Mon03/05/21 at 0150, Until 03/06/21 at 1408, Apply purified Lanolin to sore or cracked nipples, if needed. May keep at bedside., ondansetron (disintegrating) (Zofran ODT) tablet 4 mg 4 mg, Oral, EVERY 6 HOURS PRN, Nausea/Vomiting, Starting on Mon03/05/21 at 0150, Until 03/06/21 at 1408, Dissolved orally on tongue, ondansetron (Zofran) injection 4 mg (CANCELED)(Linked Group 1) 4 mg, Intravenous, EVERY 6 HOURS PRN, Nausea/Vomiting, Starting on Mon02/23/21 at 1636, Until Mon03/05/21 at 0150, Start with ondansetron. If ondansetron ineffective use metoclopramide. If metoclopramide ineffective use prochlorperazine. 0808 ($ Given - Provider: Grisel Pereira RN) oxytocin (Pitocin) 30 units in 500 mL 0.9% sodium chloride infusion (CANCELED) 125-1,000 cole-units/min (125-1,000 mL/hr), Intravenous, CONTINUOUS PRN, post placenta, Starting on Estelita 03/04/21 at 0847, Until Mon03/05/21 at 0150, Infuse first bag POST-DELIVERY at 1,000 cole-units/min, then decrease rate to 125 cole-units/min until discontinued. ADMINISTER AFTER THE ANTERIOR SHOULDER OR WITH DELIVERY OF THE PLACENTA. 2244 (Bolus Current Bag/Med - Provider: Margareth Armstrong RN)2300 ($ New Bag/Syringe - Provider: Margareth Armstrong RN) polyethylene glycol 3350 (Miralax) packet 17 g 17 g, Oral, DAILY PRN, Constipation, Starting on 03/05/21 at 0150, Until 03/06/21 at 1408, Mix in 8 ounces of water, juice, soda, coffee or tea prior to administration, Linked Groups Order Group 1: ondansetron (Zofran) injection 4 mg (CANCELED)Jump to med 4 mg, Intravenous, EVERY 6 HOURS PRN, Nausea/Vomiting, Starting on 02/23/21 at 1636, Until Mon03/05/21 at 0150, Start with ondansetron. If ondansetron ineffective use metoclopramide. If metoclopramide ineffective use prochlorperazine. Or metoclopramide (Reglan) injection 10 mg (CANCELED) 10 mg, Intravenous, EVERY 6 HOURS PRN, Nausea/Vomiting, Starting on 02/23/21 at 1636, Until Mon03/05/21 at 0150, Start with ondansetron. If ondansetron ineffective use metoclopramide. If metoclopramide ineffective use prochlorperazine. Or prochlorperazine (Compazine) suppository 25 mg (CANCELED) 25 mg, Rectal, EVERY 12 HOURS PRN, Nausea/Vomiting, Starting on 02/23/21 at 1636, Until Mon03/05/21 at 0150, Start with ondansetron. If ondansetron ineffective use metoclopramide. If metoclopramide ineffective use prochlorperazine. documented in this encounter
--- OUTSIDE RECORDS SUMMARY | 2024-10-15 15:43 | XMS_ITS | Encounter Summary ---
Author Organization [facility] Address [facility] [place] [address] Care Team Providers Care Renewable Energy Technician Name Role Phone Unavailable Primary Care Provider Unavailabl e Reason for Visit * Auth/Cert Specialty Diagnoses / Procedures Referred By Contac t Referred To Contact Referral ID Status Reason Start Date Expiration Date Visits Re quested Visits Authorized [id number] 1 1 Encounter Details Date Type Department Care Team (Late st Contact Info) Description 03/04/2021 3:55 PM CDT Anesthesia Event [facility] [address] [place], [place] [id number] Trent Phillips MD [address] [place] [address] Sharifa Alvarado, FINANCE ASSISTANT-UNEMPLOYMENT INSURANCE DIRECTOR [address] [place] [address] Anesthesia Record Procedure Summary Procedure Name Responsible Anesthesiologist Anesthesia Start Time Anesthesia Stop Time EPIDURAL BLOCK Trent Phillips MD 03/04/21 1555 0 03/04/21 2241 Events Date Time Event Comment 03/04/2021 1549 1555 An Start 1555 PT Reassessment 1555 Timeout Anesthesia part icipated in timeout at the time documented in the record by nursing. 1557 Test Dose 1558 Bolus Dose 1607 Electnc Sig 2241 An Stop Meds Name Total lidocaine (XYLOCAINE) 1 % injection 3 mL * Agents No agents on file. * Blood No blood administrations on file. Lines, Drains, and Airways Type Details Placement Removal Midline Date: 03/01/21; Time : 1003; Placed By: Ace Law RN [place]; Arm: Left; Attempts: 1; Vein Used: Cephalic Vein; Initial Arm Circum: 29 CM; Lumens: Single Lumen; Gauge: 3 Serbian; Length of Cath(cm): 20 cm; Brand: BARD; Lot: [id number] exp 12/21; Tolerance: Moderate 03/01/21 1003 by Gemma Law RN 03/06/21 1230 by Sabrina Izaguirre RN Epidural Date: 03/04/21; Time : 1555; Placed By: WALTER Ji 03/04/21 1555 by Sharifa Alvarado APRN-CRNA 03/05/21 0048 by Margareth Armstrong RN Urethral Catheter 03/04/21; 1630; Marlene toro RN; Latex; No; 16; Yes, Seal Intact; Well; 03/04/21; 2233; Per order; Mahogany Tipton RN 03/04/21 1630 by Sharifa Foley RN 03/04/21 2233 by Margareth Armstrong RN documented in this encounter Social History Tobacco Use Types Packs/Day Years Used Date Smoking Tobacco: Light Smoker Cigarettes Smokeless Tobacco: Never Alcohol Use Standard Drinks/Week Comments Not Currently 0 (1 standard drink = 0.6 oz pur e alcohol) Comments Yes Sex and Gender Information Value Date Recorded Sex Assigned at Not on file Gender Identity Not on file Sexual Orientation Not on file documented as of this encounter Functional Status Functional Status Response [...] No 02/23/2021 documented as of this encounter Progress Notes * Quincy Amin APRN-UNEMPLOYMENT INSURANCE DIRECTOR - 03/05/2021 11:01 AM CDT ANESTHESIA POSTOP EVALUATION NOTE Procedure: EPIDURAL BLOCK Hannah Luis is a 25 year old female Patient Vitals for the past 6 hrs: BP Temp Pulse Resp SpO2 Pain Rating Score #1 Pain Scale/Observation 03/05/21 0514 112/64 97.8 ??F (36.6 ??C) 77 18 100 % 6 N 03/05/21 0610 -- -- -- -- -- 0 B 03/05/21 0651 -- -- -- -- -- 10 N 03/05/21 0736 -- -- -- -- -- 0 B Anesthesia Type: epidural * No Diagnosis Codes entered * Mental Status: awake, sufficiently recovered from acute administration of anesthesia to participatein the evaluation and neurologic status has returned to perioperative level Neuro Status: No numbess, tingling or visual disturbances Respiratory Function: natural Cardiac Function: stable Postop Hydration: adequate Postop Nausea: none Assessment: no apparent anesthetic complications Patient Disposition: Release from Anesthesia Care COMPLICATIONS: No complications documented. * Sharifa Alvarado APRN-UNEMPLOYMENT INSURANCE DIRECTOR - 03/04/2021 3:48 PM CDT ANESTHESIA PREOPERATIVE EVALUATION NOTE Procedure: EPIDURAL BLOCK Vitals: Patient Vitals for the past 6 hrs: BP Temp Resp Pain Rating Score #1 03/04/21 1542 -- 97.3 ??F (36.3 ??C) 18 -- 03/04/21 1400 -- -- -- 03/04/21 1330 -- 98 ??F (36.7 ??C) -- 6 03/04/21 1300 -- -- -- 03/04/21 1240 100/59 -- 16 -- 03/04/21 1230 -- -- -- 03/04/21 1200 -- -- -- 03/04/21 1101 -- 98 ??F (36.7 ??C) 20 -- 03/04/21 1023 -- -- -- 0 03/04/21 0953 -- -- -- 0 ANESTHESIA PRE-EVALUATION NOTE Physical Exam: Orientation X3 Airway/Mallampati Score: II Mouth Opening Distance: 3 fingerwidths Neck ROM: full TM Distance: > 3 FB Teeth: normal Heart: normal - S1 S2 Lungs: clear to ausculation bilaterally Diagnostic Tests: Lab(s) reviewed: Yes. ANESTHESIA PLAN ASA Score: 2 NPO Status: Continuous clear liquids Anesthesia Plan: epidural Planned Postop Destination: OB Anesthetic plan was discussed with: patient Anesthetic Plan discussion was: Consented The patient's procedural Anesthetic Plan was discussed with the anesthesiologist. BMI, Height, Weight Tobacco History Estimated body mass index is 28.97 kg/m?? as calculated from the following: Height as of this encounter: 1.651 m (5' 5 ). Weight as of this encounter: 79 kg (174 lb 1.6 oz). Social History Tobacco Use Smoking Status Light Tobacco Smoker ??? Types: Cigarettes Smokeless Tobacco Never Used Alcohol History Drug History Social History Substance and Sexual Activity Alcohol Use Not Currently Social History Substance and Sexual Activity Drug Use Yes ??? Frequency: 7.0 times per week ??? Types: Marijuana Outpatient Medications: Inpatient Medications: Outpatient Medications Marked as Taking for the 02/23/21 encounter (Hospital Encounter) Medication Sig Last Dose ??? ferrous sulfate Take 325 mg by mouth daily with breakfast 02/23/2021 at Unknown time ??? vitamin Take 1 tablet by mouth once daily 02/23/2021 at Unknown time Current Facility-Administered Medications Medication Dose Last Admin ??? 0.9% NaCl 3 mL And ??? 0.9% NaCl 1-10 mL ??? 0.9% NaCl 10-40 mL 10 mL at 03/04/21 0503 ??? 0.9% NaCl 10-40 mL 10 mL at 03/01/21 1006 ??? magnesium hydroxide 30 mL Or ??? bisacodyl EC 5 mg 5 mg at 02/25/21 1545 Or ??? bisacodyl 10 mg Or ??? sodium phosphate rectal 1 enema ??? calcium carbonate 2 tablet 2 tablet at 03/04/21 0503 ??? calcium gluconate 1 g ??? docusate sodium 100 mg 100 mg at 03/04/21 0804 ??? famotidine 20 mg 20 mg at 03/04/21 0803 ??? fentaNYL (PF) ??? iron polysaccharide 150 mg 150 mg at 03/04/21 0803 ??? lactated ringers Bolus at 03/04/21 1518 ??? lidocaine-prilocaine ??? ondansetron 4 mg 4 mg at 03/04/21 0808 Or ??? metoclopramide 10 mg Or ??? prochlorperazine 25 mg ??? metoclopramide 5 mg ??? ondansetron (disintegrating) 4 mg ??? oxytocin 125-1,000 cole-units/min ??? oxytocin 0-20 cole-units/min 10 cole-units/min at 03/04/21 1359 ??? vitamin with iron 1 tablet 1 tablet at 03/04/21 0804 ??? prochlorperazine 5 mg ??? prochlorperazine 5 mg ??? simethicone 160 mg 160 mg at 03/02/21 1908 ??? terbutaline 0.25 mg ??? tranexamic acid 1,000 mg ??? valACYclovir 500 mg 500 mg at 03/04/21 0804 Allergies: Allergies Allergen Reactions ??? Amoxicillin Rash Relevant Problems No relevant active problems Problem List: Patient Active Problem List Diagnosis Date Noted ??? premature rupture of membranes (PPROM) with unknown onset of labor 02/24/2021 Priority: Not Prioritized ??? HSV-2 infection complicating 02/24/2021 Priority: Not Prioritized ??? Iron deficiency anemia during 02/24/2021 Priority: Not Prioritized ??? Marijuana use 02/24/2021 Priority: Not Prioritized ??? Encounter for ultrasound to assess interval growth of fetus Priority: Not Prioritized ??? Fifth 10/07/2020 Priority: Not Prioritized ??? Hx of section 10/07/2020 Priority: Not Prioritized Medical History: No past medical history on file. Surgical History: No past surgical history on file. Lab Results: Recent Labs Component Name 03/04/21732 WBC 11.6* RBC 3.75* HCT 32.4* HGB 10.7* PLTCOUNT 251 MCV 86.4 MCH 28.5 MCHC 33.0 MPV 9.6 Recent Labs Component Name 03/04/21732 ABORH B POS ABSCG NEG Recent Labs Component Name 02/24/21 0145 MAGNESIUM 6.0* Recent Labs Component Name 02/24/21 0145 PTT 23.9 PT 13.3 INR 1.0 Recent Labs Component Name 02/24/21 0145 FIBRINOGEN 418* No results found for requested labs within last 120 days. No results found for requested labs within last 120 days. documented in this encounter Procedure Notes * Sharifa Alvarado, FINANCE ASSISTANT-UNEMPLOYMENT INSURANCE DIRECTOR - 03/04/2021 4:08 PM CDTAssociated Order(s): Neuraxial Block Neuraxial Block Note Pre-Procedure: Procedure Name: Neuraxial Block Indications: labor analgesia Pre-Anesthetic Checklist: Patient identified, IV Checked, Risks and benefits discussed, Surgical consent verified, Monitors and equipment, Site examined, Pre-op evaluation done, Time-out performed, Informed consent obtained, Questions answered/anesthesia questions answered and Allergies reviewed Monitors: BP, continuous pluse ox, EKG and End tidal CO2 Patient Condition: awake Patient Sedated? No Procedure: Block Type: Epidural Prep: Betadine Sterile Field: mask, cap/hat, sterile established and sterile gloves Approach: midline Skin was localized? Yes Skin localized with: lidocaine (XYLOCAINE) 1 % injection, 3 mL Epidural Block: Is this procedure for postop pain? No Needle Type: Tuohy Needle gauge: 18 G Needle length: 90 mm Placement Site: L3-L4 Number of Attempts: 1 Loss of Resistance: 7 air Catheter threaded to (cm): 5 Catheter length at skin (cm): 12 CSF Aspirated from catheter: No Blood Aspirated: No Test Dose: 3 mL Test Dose Response: No Epidural Infusion Medications: Ropivacaine: 0.2% with Fentanyl 2mcg/mL in NS , 250 cc (mL) at 12 mL/hr Procedure Tolerance: tolerated well Sensory Level: T8 Motor Blockade: Yes Position post procedure: head of bed elevated 30 degrees, left lateral decubitus Vital Signs: Vital signs monitored and stable throughout. See anesthesia record for details., Fetalheart tones monitored and stable throughout., Vital signs moniitored and stable throughout. See nursing vitals flowsheet for details. Start Time: 03/04/2021 3:55 PM End Time: 03/04/2021 3:57 PM Total Time: 2 Staff: Anesthesia Provider: Sharifa Alvarado APRN-CRNA - performed the procedure documented in this encounter Plan of Treatment Not on file documented as of this encounter Procedures Procedure Name Priority Date/Time Associated Diagnosis Comments NEURAXIAL BLOCK Routine 03/04/2021 4:08 PM CDT documented in this encounter Results * EPIDURAL BLOCK PERF (03/04/2021 4:08 PM CDT) Narrative Sharifa Alvarado APRN-CRNA - 03/04/2021 4:08 PM CDT Sharifa Alvarado APRN-CRNA ? 03/04/2021 ??4:09 PM Neuraxial Block Note ?? Pre-Procedure: ?? Procedure Name: ??Neuraxial Block Indications: ??labor analgesia Pre-Anesthetic Checklist: ??Patient identified, IV Checked, Risks and benefits discussed, Surgical consent verified, Monitors and equipment, Site examined, Pre-op evaluation done, Time-out performed, Informed consent obtained, Questions answered/anesthesia questions answered and Allergies reviewed Monitors: ??BP, continuous pluse ox, EKG and End tidal CO2 Patient Condition: ??awake Patient Sedated? ??No Procedure: ?? Block Type: ??Epidural Prep: ??Betadine Sterile Field: ??mask, cap/hat, sterile established and sterile gloves Approach: ??midline Skin was localized? ??Yes Skin localized with: lidocaine (XYLOCAINE) 1 % injection, 3 mL Epidural Block: ?? Is this procedure for postop pain? ??No Needle Type: ??Tuohy Needle gauge: ??18 G Needle length: ??90 mm Placement Site: ??L3-L4 Number of Attempts: ??1 Loss of Resistance: ??7 ?? air Catheter threaded to (cm): ??5 Catheter length at skin (cm): ??12 CSF Aspirated from catheter: ??No Blood Aspirated: ??No Test Dose: ??3 ??mL Test Dose Response: ??No Epidural Infusion Medications: ? Ropivacaine: ??0.2% with Fentanyl 2mcg/mL in NS , ??250 cc (mL) ??at 12 mL/hr Procedure Tolerance: ??tolerated well Sensory Level: ??T8 Motor Blockade: ??Yes Position post procedure: ??head of bed elevated 30 degrees, ?? left lateral decubitus Vital Signs: ??Vital signs monitored and stable throughout. ??See anesthesia record for details., heart tones monitored and stable throughout., Vital signs moniitored and stable throughout. ??See nursing vitals flowsheet for details. Start Time: ??03/04/2021 3:55 PM End Time: ??03/04/2021 3:57 PM Total Time: ??2 Staff: ?? Anesthesia Provider: ??Sharifa Alvarado, [employer]-UNEMPLOYMENT INSURANCE DIRECTOR ?? - ?? performed the procedure Trent Phillips MD GENERAL ANESTHESIA ORDERABLES documented in this encounter Visit Diagnoses Not on filedocumented in this encounter Administered Medications Inactive Administered Medications - up to 3 most recent administrations Medication Order MAR Action Action Date Dose Rate Site lidocaine (Xylocaine) 1 % injection Infiltration, Starting on Estelita 03/04/21 at 1608, Until Estelita 03/04/21 at 1608, Anesthesia Intra-op $ Given 03/04/2021 4:08 PM CDT 3 mL documented in this encounter
--- OUTSIDE RECORDS SUMMARY | 2024-10-15 15:43 | XMS_ITS | Encounter Summary ---
Author Organization [facility] Address [facility] [facility] [place] [address] Care Team Providers Care Channel Machine Operator Name Role Phone Unavailable Primary Care Provider Unavailabl e Reason for Visit * Reason Onset Date Comments Scheduling 03/08/2021 Encounter Details Date Type Department Care Team (Late st Contact Info) Description 03/08/2021 Telephone [facility]ER[facility]/ EVALUATION UNIT [facility] [facility] [place] [address] Katerin Reed Scheduling Social History Tobacco Use Types Packs/Day Years [...] No 02/23/2021 documented as of this encounter Miscellaneous Notes * Telephone Encounter - Katerin Reed - 03/08/2021 2:31 PM CDT LM for patient with details regarding upcoming appointment with MFM. Also instructed patient to contact either [facility] or her primary OB to schedule 4/6 WK PP check up. documented in this encounter Plan of Treatment Not on file documented as of this encounter Visit Diagnoses Not on filedocumented in this encounter
--- OUTSIDE RECORDS SUMMARY | 2024-10-15 15:43 | XMS_ITS | Patient Health Summary ---
Author Organization [facility] Address [address] [place] [address] Care Team Providers Care Glucose And Syrup Weigher Name Role Phone Unavailable Primary Care Provider Unavailabl e Note from [facility],non-owned Affiliates and Associated Physician Practices is amultiple site organization consisting of ambulatory clinics and hospital sitesin [place], [place], [place] and [place]. This disclosure is being madepursuant to the Care Everywhere program and may not contain all information available regarding this patient. Last updated 18.[facility] Allergies * Amoxicillin(Rash) -Medium Criticality Medications * Be aware that medications may not be up to date on this document. Alwaysverify current medications with the patient. * ferrous sulfate 325 (65 FE) MG tablet Take 325 mg by mouth daily with breakfast * Vit-Fe Fumarate-FA ( VITAMIN) 28-0.8 MG tablet Take 1 tablet by mouth once daily * plus iron (NATATAB) 29-1 MG tablet(Started 03/06/2021) Take 1 (one) tablet by mouth once daily 4 refills by 03/06/2022 * docusate sodium (COLACE) 100 MG capsule(Started 03/06/2021) Take 1 (one) capsule by mouth once daily 3 refills by 03/06/2022 * ferrous sulfate 325 (65 FE) MG tablet(Started 03/06/2021) Take 1 (one) tablet by mouth once daily 3 refills by 03/06/2022 * acetaminophen (TYLENOL) 500 MG capsule(Started 03/06/2021) Take 2 (two) capsules by mouth every 6 hours as needed for Fever or Pain Active Problems Problem Noted Date Diagnosed Date [...] ultrasound 10/07/2020 02/24/2021 Herpes 10/07/2020 02/24/2021 Immunizations * MMR(Given 03/06/2021) Social History Tobacco Use Types Packs/Day Years [...] Mass Index 28.97 02/23/2021 4:31 PM CDT Procedures * IMAGING/RADIOLOGY/XRAY RESULTS ORDER(Performed 03/08/2021) * HGB HCT PANEL(Performed 03/05/2021) * PATHOLOGY TISSUE EXAM (STL)(Performed 03/04/2021) Performed for premature rupture of membranes (PPROM) with unknown onset of labor (HCC) * BLOOD GASES CORD ARTERIAL(Performed 03/04/2021) * BLOOD GASES CORD NANCY(Performed 03/04/2021) * NEURAXIAL BLOCK(Performed 03/04/2021) * TYPE + SCREEN PANEL(Performed 03/04/2021) * CBC W AUTO DIFFERENTIAL(Performed 03/04/2021) * NON-STRESS TEST(Performed 03/03/2021) * NON-STRESS TEST(Performed 03/03/2021) * NON-STRESS TEST(Performed 03/03/2021) * NON-STRESS TEST(Performed 03/03/2021) * NON-STRESS TEST(Performed 03/01/2021) * NON-STRESS TEST(Performed 02/28/2021) * NON-STRESS TEST(Performed 02/28/2021) * NON-STRESS TEST(Performed 02/27/2021) * NON-STRESS TEST(Performed 02/27/2021) * NON-STRESS TEST(Performed 02/27/2021) * TYPE + SCREEN PANEL(Performed 02/26/2021) * IRON + TRANSFERRIN PANEL(Performed 02/26/2021) * FERRITIN(Performed 02/26/2021) * CBC W AUTO DIFFERENTIAL(Performed 02/26/2021) * SONOGRAM - COMPLETE(Performed 02/24/2021) * MAGNESIUM BLOOD(Performed 02/24/2021) * FIBRINOGEN ACTIVITY(Performed 02/24/2021) * PTT(Performed 02/24/2021) * PT-INR(Performed 02/24/2021) * CBC W AUTO DIFFERENTIAL(Performed 02/24/2021) * URINE DRUG SCREEN IMMUNOASSAY(Performed 02/23/2021) * TRICHOMONAS RAPID TEST(Performed 02/23/2021) * CHLAMYDIA + GC AMPLIFIED PROBE(Performed 02/23/2021) * BLOOD TYPE VERIFICATION(Performed 02/23/2021) * CULTURE STREP B(Performed 02/23/2021) * RUPTURE OF MEMBRANES EVAL(Performed 02/23/2021) * TYPE + SCREEN PANEL(Performed 02/23/2021) * CBC W AUTO DIFFERENTIAL(Performed 02/23/2021) * SONOGRAM - COMPLETE(Performed 01/06/2021) Performed for Fifth (HCC), Encounter for ultrasound (HCC), Hx of section * SONOGRAM - COMPLETE(Performed 10/07/2020) Performed for Date of last menstrual period (LMP) unknown Results * IMAGING RADIOLOGY XRAY RESULTS ORDER (03/08/2021 5:21 PM CDT) Anatomical Region Laterality Modality Other Narrative 03/08/2021 5:21 PM CDT Ordered by an unspecified provider. Scanned Document IMAGING * (ABNORMAL) HGB HCT PANEL (03/05/2021 7:14 AM CDT) Pathologist [facility] Hemoglobin 11.1(L) 12.0 - 15.6 gm/dL 03/05/2021 8:29 AM CDT [facility] Hematocrit 34.4(L) 35.9 - 45.5 % 03/05/2021 8:29 AM CDT [facility] Blood BLOOD SPECIMEN / Unknown Lab Venipuncture / Unknown 03/05/2021 7:14 AM CDT 03/05/2021 8:22 AM CDT Fabrice Solis MD LAB - HEMATOLOGY ORD ERABLES [facility] [address] [place] [address] * PATHOLOGY TISSUE EXAM (STL) (03/04/2021 11:16 PM CDT) Pathologist [facility] Case Report Surgical Pathology Report ? Case: [id number] ? Authorizing Provider: ??Chelsie Astorga MD ?Collected: ? 03/04/2021 11:16 PM ? Ordering Location: ? [facility] 5 R ? Received: ?03/05/2021 08:34 AM ? Pathologist: ? Carline Sorto MD ? Specimen: ?Placenta 3rd Trimester ? 03/08/2021 11:[address] [facility] Final Diagnosis Placenta, vaginal delivery - Small, hypermature placenta (weight <10th percentile for gestational age) - membranes with no histopathologic abnormality - Three-vessel umbilical cord with no histopathologic abnormality 03/08/2021 11:[address] [facility] Clinical History The patient is a 25-year-old woman at 34 weeks, 0 days gestation, with premature rupture of membranes 02/13. Procedure/findings: vaginal delivery, baby to NICU. 03/08/2021 11:[address] [facility] Gross Description The requisition and [...] red-morales, spongy cut surfaces with no lesions. Coding Tech sections submitted as follows: A1-umbilical cord and membrane roll, A2-placental disc central, A3-placental disc peripheral. LJ 03/08/2021 11:[address] [facility] Microscopic Description Microscopic examination substantiates the above diagnosis. 03/08/2021 11:[address] [facility] Disclaimer All histochemical and/or immunohistochemical results are interpreted with controls that demonstrate appropriate staining reactions before reporting results. Note on use of immunocytochemistry reagents: This test was developed and its performance characteristic determined by [facility], Department of Laboratory Medicine. It has not [...] interpreted with caution. 03/08/2021 11:28 AM CDT [facility] Embedded Images 03/08/2021 11:28 AM CDT [facility] Pathology/Cytolo gy ENTIRE PLACENTA / Unknown Collection / Unknown 03/04/2021 11:16 PM CDT 03/05/2021 8:34 AM CDT Chelsie Astorga MD LAB - PATHOLOGY /CYTOLOGY ORDERABLES [facility] [address] [place] [phone] * (ABNORMAL) BLOOD GASES CORD ARTERIAL (03/04/2021 10:52 PM CDT) pH Cord Arterial 7.30 7.20 - 7.34 pH 03/04/2021 11:04 PM CDT [facility] pCO2 Cord Arterial 62(H) 45 - 55 mm hg 03/04/2021 11:04 PM CDT [facility] Comment:H pO2 Cord Arterial 16 12 - 25 mm hg 03/04/2021 11:04 PM CDT [facility] HCO3 Cord Arterial 29.7(H) 22.0 - 24.0 mmol/L 03/04/2021 11:04 PM CDT [facility] Comment:H BE Cord Arterial 1.4 mmol/L 03/04/2021 11:04 PM CDT [facility] O2 Saturation Cord Arterial 18 % 03/04/2021 11:04 PM CDT [facility] Geronimo's Test N/A 03/04/2021 11:04 PM CDT [facility] Sample Site Other 03/04/2021 11:04 PM CDT [facility] Sample Type Cord blood Arterial 03/04/2021 11:04 PM CDT [facility] RESP THERAPY [employer] ID [id number] 03/04/2021 11:04 PM CDT [facility] Blood, arterial CORD BLOOD SPECIMEN / Unknown 03/04/2021 10:52 PM CDT 03/04/2021 10:52 PM CDT Chelsie Astorga MD LAB - BLOOD GAS ES ORDERABLES [facility] [address] [place] [address] * (ABNORMAL) BLOOD GASES CORD NANCY (03/04/2021 [...] 03/04/2021 11:05 PM CDT [facility] RESP THERAPY [employer] ID [id number] 03/04/2021 11:05 PM CDT [facility] Blood CORD BLOOD SPECIMEN / Unknown 03/04/2021 10:52 PM CDT 03/04/2021 10:52 PM CDT Chelsie Astorga MD LAB - BLOOD GAS ES ORDERABLES [facility] [address] [place] [address], [facility] [phone] * EPIDURAL BLOCK PERF (03/04/2021 4:08 PM CDT) Narrative Sharifa Alvarado APRN-BIOLOGY MANAGER - 03/04/2021 4:08 PM CDT Sharifa Alvarado APRN-BIOLOGY MANAGER ? 03/04/2021 ??4:09 PM Neuraxial Block Note [...] ??2 Staff: ?? Anesthesia Provider: ??Sharifa Alvarado, BANKMAN-BIOLOGY MANAGER ?? - ?? performed the procedure Trent Phillips MD GENERAL ANESTHESIA ORDERABLES * TYPE + SCREEN PANEL (03/04/2021 7:33 AM CDT) Only the most recent of3 resultswithin the time period is included. Pathologist [facility] ABO Rh B POS 03/04/2021 8:20 AM CDT [facility] Comment:History checked. Antibody Screen NEG 8:20 AM CDT [facility] Blood Bank BLOOD SPECIMEN / Unknown Venipuncture / Unknown 03/04/2021 7:33 AM CDT 03/04/2021 7:38 AM CDT Fabrice Solis MD LAB - BLOOD BANK ORD ERABLES [facility] [address] [place] [address], [facility] [phone] * (ABNORMAL) CBC W AUTO DIFFERENTIAL (03/04/2021 7:33 AM CDT) Only the most recent of4 resultswithin the time period is included. WBC 11.6(H) 4.4 - 10.7 x10E9/L 03/04/2021 7:45 AM CDT [facility] WBC Corrected 03/04/2021 7:45 AM CDT [facility] RBC 3.75(L) 3.80 - 5.20 x10E12/L 03/04/2021 7:45 AM CDT [facility] Hemoglobin 10.7(L) 12.0 - 15.6 gm/dL 03/04/2021 7:45 AM CDT [facility] Hematocrit 32.4(L) 35.9 - 45.5 % 03/04/2021 7:45 AM CDT [facility] MCV 86.4 80.7 - 98.3 fl 03/04/2021 7:45 AM CDT [facility] MCH 28.5 26.7 - 34.0 pg 03/04/2021 7:45 AM CDT [facility] MCHC 33.0 30.8 - 35.9 gm/dL 03/04/2021 7:45 AM CDT [facility] Platelet Count 251 153 - 416 x10E9/L 03/04/2021 7:45 AM CDT [facility] RDW-CV 15.8(H) 12.1 - 14.9 % 03/04/2021 7:45 AM CDT [facility] MPV 9.6 9.4 - 12.9 fl 03/04/2021 7:45 AM CDT [facility] Neutrophils % 64.1 44.0 - 73.0 % 03/04/2021 7:45 AM CDT [facility] Lymphocytes % 22.9 20.0 - 43.0 % 03/04/2021 7:45 AM CDT [facility] Monocytes % 9.7 5.0 - 13.0 % 03/04/2021 7:45 AM CDT [facility] Eosinophils % 2.1 0.0 - 6.0 % 03/04/2021 7:45 AM CDT [facility] Basophils % 0.3 0.0 - 2.0 % 03/04/2021 7:45 AM CDT [facility] Immature Granulocytes 0.9 0 - 1 % 03/04/2021 7:45 AM CDT [facility] Neutrophil Absolute 7.45(H) 2.01 - 7.14 x10E9/L 03/04/2021 7:45 AM CDT [facility] Lymphocytes Absolute 2.67 1.07 - 3.94 x10E9/L 03/04/2021 7:45 AM CDT [facility] Monocytes Absolute 1.13(H) 0.26 - 1.07 x10E9/L 03/04/2021 7:45 AM CDT [facility] Eosinophils Absolute 0.24 0 - 0.47 x10E9/L 03/04/2021 7:45 AM CDT [facility] Basophils Absolute 0.04 0 - 0.08 x10E9/L 03/04/2021 7:45 AM CDT [facility] Immature Granulocytes Absolute 0.11(H) 0.00 - 0.06 x10E9/L 03/04/2021 7:45 AM CDT [facility] nRBC Auto 0 /100 WBC 03/04/2021 7:45 AM CDT [facility] Blood BLOOD SPECIMEN / Unknown Venipuncture / Unknown 03/04/2021 7:33 AM CDT 03/04/2021 7:38 AM CDT Fabrice Solis MD LAB - HEMATOLOGY ORD ERABLES [facility] [address] [place] [address] * NON-STRESS TEST (03/03/2021 11:32 PM CDT) Only the most recent of10 resultswithin the time period is included. Anatomical Region Laterality Modality Other Narrative 03/03/2021 11:32 PM CDT Marion Blue RN ? 03/03/2021 11:33 PM Name: ??Hannah Luis Date of : ??1995 Today's Date: ??03/03/2021 33w6d ?? Start: 2237 Stop: 2316 ?NST RESULTS (SHETTY) OBJECTIVE FINDINGS Temp: 98.2 ??F (36.8 ??C), Pulse: 77, Resp: 18, BP: 101/65 NST Indication(s): Premature rupture of membranes Uterine Irritability: Yes Contractions: Not present Frequency: None per toco OBJECTIVE FINDINGS Movement: Present Monitoring Mode: External Baseline: 135 BPM Variability: Moderate Decelerations: None Accelerations: Yes OTHER INFORMATION Marion Blue RN Fabrice Solis MD [facility] ORDERABLES * (ABNORMAL) IRON + TRANSFERRIN PANEL (02/26/2021 3:14 PM CDT) Iron 43(L) 50 - 170 ug/dL 02/26/2021 3:44 PM CDT [facility] Comment:Attention clinician: Reference Range change. Transferrin 399(H) 180 - 382 mg/dL 02/26/2021 3:44 PM CDT [facility] Comment:Attention clinician: Reference Range change. TIBC Calculated 499(H) 240 - 450 ug/dL 02/26/2021 3:44 PM CDT [facility] Iron Saturation % 9(L) 20 - 50 % 02/26/2021 3:44 PM CDT [facility] Blood BLOOD SPECIMEN / Unknown Venipuncture / Unknown 02/26/2021 3:14 PM CDT 02/26/2021 3:25 PM CDT Hali Tomas BANKMAN-USER EXPERIENCE ARCHITECT LAB - AUTOMATIC SHIRRING MACHINE OPERATOR RY ORDERABLES Performing Organization Address [facility] de Phone Number [facility] [address] [place] [phone] * FERRITIN (02/26/2021 3:14 PM CDT) Ferritin 7 5 - 204 ng/mL 02/26/2021 4:12 PM CDT [facility] Blood BLOOD SPECIMEN / Unknown Venipuncture / Unknown 02/26/2021 3:14 PM CDT 02/26/2021 3:25 PM CDT Hali Tomas BANKMAN-USER EXPERIENCE ARCHITECT LAB - AUTOMATIC SHIRRING MACHINE OPERATOR RY ORDERABLES Performing Organization Address [facility] de Phone Number [facility] [address] [place] [phone] * SONOGRAM - COMPLETE (02/24/2021 9:45 AM CDT) Only the most recent of3 resultswithin the time period is included. Anatomical Region Laterality Modality Other 02/24/2021 9:45 AM CDT Narrative 02/24/2021 11:55 AM CDT ?[facility] ? - [place] ? [facility] ?PHONE: ??FAX: Pat. Name: ?HANNAH LUIS Pat. No: ?[id number] Study Date: ?? 02/24/2021 ??9:45am , Age: ? 1995, 25 Pregnancies: ?? 5, Para 3, Ab 1 Height: ? 65 in Weight: ? 166 lb LMP: ?Unknown GA by Base: ?? 32w6d ?? SRINIVASA: 04/15/2021 GA by US: ? 33w1d ?? SRINIVASA: 04/13/2021 GA Selected: ??32w6d (From [facility]) SRINIVASA: ?04/15/2021 Referring MD: Junie Brizuela MD V[employer] Cellar Worker: ??April Hernandez, HALIE, ANNIE CPT4: ? 12281 BMI: ?27.62 Room: ? 540 Hist/Ind: ? Unknown LMP ?Hx ?EIF ?PPROM MEASUREMENTS & AGE ? GROWTH EVALUATION Measurement ??GA ? Range ? Srce %for GA Ratios ----- ---- ------- BPD ??8.4 cm 33w6d (99b2s-48k1j) Hadl BPD 71% FL/BPD 0.71 (0.71 - 0.87* HC ??30.7 cm 34w1d (94e6d-88p2e) Hadl HC ??49% FL/AC ??0.20 (0.20 - 0.24) AC ??29.7 cm 33w5d (04w6o-39r2p) Hadl AC ??74% HC/AC ??1.03 (0.95 - 1.14) FL ?? 6.0 cm 31w0d (61j4r-65y3z) Hadl FL ??5% CI ? 0.77 (0.70 - 0.86) HL ?? 5.2 cm 30w1d (01f7m-20a1h) Cyril HL ??6% GA for sonogram 33w1d (85g4r-65x5q) ?? Weight Estimate: based on (BPD,HC,AC,FL) Avg [...] ?<Electronic Signature> ??02/24/2021 11:55am Fabrice Solis MD [facility] ORDERABLES * (ABNORMAL) FIBRINOGEN ACTIVITY (02/24/2021 1:45 AM CDT) Pathologist [facility] Fibrinogen 418(H) 200 - 400 mg/dL 02/24/2021 2:13 AM CDT [facility] Blood BLOOD SPECIMEN / Unknown Lab Venipuncture / Unknown 02/24/2021 1:45 AM CDT 02/24/2021 1:59 AM CDT Fabrice Solis MD LAB - COAGULATION OR DERABLES Performing Organization Address [facility] de Phone Number [facility] [address] [place] [phone] * PTT (02/24/2021 1:45 AM CDT) Pathologist [facility] PTT 23.9 23.0 - 38.4 sec 02/24/2021 2:12 AM CDT [facility] Blood BLOOD SPECIMEN / Unknown Lab Venipuncture / Unknown 02/24/2021 1:45 AM CDT 02/24/2021 1:59 AM CDT Narrative [facility] - 02/24/2021 2:12 AM CDT Heparin Therapeutic Range for PTT: ??71.0 - 109.0 seconds. Fabrice Solis MD LAB - COAGULATION OR DERABLES Performing Organization Address [facility] de Phone Number [facility] [address] [place] [phone] * PT-INR (02/24/2021 1:45 AM CDT) Pathologist [facility] PT 13.3 12.1 - 14.8 sec 02/24/2021 2:11 AM CDT [facility] INR 1.0 0.9 - 1.1 02/24/2021 2:11 AM CDT [facility] Blood BLOOD SPECIMEN / Unknown Lab Venipuncture / Unknown 02/24/2021 1:45 AM CDT 02/24/2021 1:59 AM CDT Narrative [facility] - 02/24/2021 2:11 AM CDT Conventional Warfarin Anticoagulant Therapy: INR Reference Range: ??2.0-3.0 Intensive Warfarin Anticoagulant Therapy: INR Reference Range: ? 2.5-3.5 Fabrice Slois MD LAB - COAGULATION OR DERABLES Performing Organization Address City/[facility]/ZIP Co de Phone Number [facility] [address] [place], [place] [phone] * (ABNORMAL) MAGNESIUM BLOOD (02/24/2021 1:45 AM CDT) [facility] Magnesium 6.0(HH) 1.6 - 2.6 mg/dL 02/24/2021 2:30 AM CDT [facility] Blood BLOOD SPECIMEN / Unknown Lab Venipuncture / Unknown 02/24/2021 1:45 AM CDT 02/24/2021 1:59 AM CDT Fabrice Solis MD LAB - CHEMISTRY ORDE RABLES Performing Organization Address [facility]/ZIP Co de Phone Number [facility] [address] [place] [phone] * (ABNORMAL) DRUG SCREEN TOX URINE PANEL (02/23/2021 6:23 PM CDT) [facility] Amphetamines Screen Urine Not detected Not detected 02/23/2021 7:09 PM CDT [facility] Barbiturates Screen Urine Not detected Not detected 02/23/2021 7:09 PM CDT [facility] Benzodiazepines Screen Urine Not detected Not detected 02/23/2021 7:09 PM CDT [facility] Cannabinoids Screen Urine Detected(A) Not detected 02/23/2021 7:09 PM CDT [facility] Cocaine Screen Urine Not detected Not detected 02/23/2021 7:09 PM CDT [facility] Fentanyl Urine Not detected Not detected 02/23/2021 7:09 PM CDT [facility] Methadone Screen Urine Not detected Not detected 02/23/2021 7:09 PM CDT [facility] Opiate Screen Urine Not detected Not detected 02/23/2021 7:09 PM CDT [facility] Phencyclidine Screen Urine Not detected Not detected 02/23/2021 7:09 PM CDT [facility] Urine URINE / Unknown Collection / Unknown 02/23/2021 6:23 PM CDT 02/23/2021 6:39 PM CDT Narrative [facility] - 02/23/2021 7:09 PM CDT This [...] MD LAB - URINE CHEMISTR Y ORDERABLES Performing Organization Address City/State/[facility] Co de Phone Number [facility] [address] [place], [place] [phone] * CHLAMYDIA + GC AMPLIFIED PROBE (STL) (02/23/2021 6:22 PM CDT) Pathologist [facility] Chlamydia Amplified Probe Negative Negative 02/24/2021 5:54 AM CDT [facility] GC Amplified Probe Negative Negative 02/24/2021 5:54 AM CDT [facility] Microbiology PART OF UTERINE CERVIX / Unknown Collection / Unknown 02/23/2021 6:22 PM CDT 02/23/2021 6:39 PM CDT Narrative [facility] - 02/24/2021 5:54 AM CDT Results based on detection/no detection of ribosomal RNA by amplified method. Fabrice Solis MD LAB - MICROBIOLOGY O RDERABLES [facility] [address] [place] [phone] * TRICHOMONAS RAPID TEST (02/23/2021 6:22 PM CDT) Trichomonas Rapid Test Negative Negative 02/23/2021 7:05 PM CDT [facility] Microbiology VAGINAL SWAB / Unknown Collection / Unknown 02/23/2021 6:22 PM CDT 02/23/2021 6:39 PM CDT Fabrice Solis MD LAB - MICROBIOLOGY O RDERABLES Performing Organization Address City/[facility]/ZIP Co de Phone Number [facility] [address] [place] [address] * BLOOD TYPE VERIFICATION (02/23/2021 6:21 PM CDT) ABO Rh B POS 02/23/2021 7:0 4 PM CDT [facility] Blood Bank BLOOD SPECIMEN / Unknown Venipuncture / Unknown 02/23/2021 6:21 PM CDT 02/23/2021 6:33 PM CDT Fabrice Solis MD LAB - BLOOD BANK ORD ERABLES Performing Organization Address City/[facility] Co de Phone Number [facility] [address] [place], [place] [address] [phone] * CULTURE STREP B (02/23/2021 6:20 PM CDT) Culture Strep B Negative for beta-hemolytic Streptococcus Group B ARTIE 02/27/2021 5:36 AM CDT [facility] Microbiology MISCELLANEOUS SAMPLES / Unknown Collection / Unknown 02/23/2021 6:20 PM CDT 02/23/2021 6:39 PM CDT Fabrice Solis MD LAB - MICROBIOLOGY O RDERABLES Performing Organization Address [facility] Co de Phone Number [facility] [address] [place] [address], [facility] [phone] * (ABNORMAL) RUPTURE OF MEMBRANES EVAL (02/23/2021 5:35 PM CDT) RUPTURE OF MEMBRANES POSITIVE(A ) NEGATIVE 02/23/2021 5:47 PM CDT [facility] Fluid VAGINAL SWAB / Unknown Collection / Unknown 02/23/2021 5:35 PM CDT 02/23/2021 5:38 PM CDT Narrative [facility] - 02/23/2021 5:47 PM [...] BODY FLUID ORD ERABLES Performing Organization Address [facility] Co de Phone Number [facility] [address] [place] [address]
--- OUTSIDE RECORDS SUMMARY | 2024-10-15 15:43 | XMS_ITS | Encounter Summary ---
Author Organization [facility] Address [address] [address] Care Team Providers Care Director Broadcast Name Role Phone Unavailable Primary Care Provider Unavailabl e Reason for Visit * Reason Onset Date Comments Missed Appointment 12/02/2020 missed 11/30/20 Encounter Details Date Type Department Care Team (Late st Contact Info) Description 12/02/2020 Telephone [facility] [address] [place] [address] Igor Siegel Missed Appointment (missed 11/30/20) Social History Tobacco Use Types Packs/Day Years Used Date Smoking Tobacco: Never Assessed Comments Yes Sex and Gender Information Value Date Recorded Sex Assigned at Not on file Gender Identity Not on file Sexual Orientation Not on file documented as of this encounter Miscellaneous Notes * Telephone Encounter - Igor Siegel - 12/02/2020 1:05 PM CST Called pt to reschedule no show appt from 11/30/20. Left a VM for her to call back to reschedule. [employer] documented in this encounter Plan of Treatment Not on file documented as of this encounter Visit Diagnoses Not on filedocumented in this encounter
--- OUTSIDE RECORDS SUMMARY | 2024-10-15 15:43 | XMS_ITS | Encounter Summary ---
Author Organization [facility] Address [address] [facility] [place] [address] Care Team Providers Care Drill Hand Name Role Phone Unavailable Primary Care Provider Unavailabl e Reason for Visit * Reason Comments Ultrasound * Evaluate & Treat (Routine) - Closed Specialty Diagnoses / Procedures Referred By Contac t Referred To Contact Diagnoses Abnormal ultrasonic finding on screening of mother Encounter for screening, unspecified (HCC) Supervision of other high risk pregnancies, unspecified trimester ([facility]) Procedures AL ULTRASOUND, UTERUS Elisa Krueger MD [address] [address] [facility] Maternal Fet [facility] [address] [place] [address] Referral ID Status Reason Start Date Expiration Date Visits Re quested Visits Authorized [id number] Closed 10/07/2020 12/07/2020 1 1 Encounter Details Date Type Department Care Team (Latest Contact Info) Description 10/07/2020 12:31 PM PRODUCTION LINE WORKER - 10/07/2020 11:59 PM PRODUCTION LINE WORKER Hospital Encounter [facility] Maternal [facility] Care [address] [place] [address] Tima Bejarano MD Discharge Disposition: Home or Self Care Social History Tobacco Use Types Packs/Day Years Used Date Smoking Tobacco: Never Assessed Comments Yes Sex and Gender Information Value Date Recorded Sex Assigned at Not on file Gender Identity Not on file Sexual Orientation Not on file documented as of this encounter Progress Notes * Bela Villafuerte RDMS - 10/07/2020 12:57 PM CST Patient/Guest were screen at registration for COVID symptoms Patient/Guest and tech were wearing masks TEMPS Pt:97.9 Guest: UCTION LINE WORKER documented in this encounter Plan of Treatment Not on file documented as of this encounter Procedures Procedure Name Priority Date/Time Associated Diagnosis Comments SONOGRAM - COMPLETE Routine 10/07/2020 1 2:56 PM PRODUCTION LINE WORKER Date of last menstrual period (LMP) unknown documented in this encounter Results * SONOGRAM - COMPLETE (10/07/2020 12:56 PM PRODUCTION LINE WORKER) Anatomical Region Laterality Modality Other 10/07/2020 12:5 6 PM PRODUCTION LINE WORKER Narrative 10/07/2020 11:10 PM PRODUCTION LINE WORKER ? - VICENTE Nicoleh [facility] ? [facility] ?PHONE: ??FAX: ? Pat. Name: ?HANNAH PYLE. No: ?[id number] Study Date: ?? 10/07/2020 ??12:56pm , Age: ? 1995, 25 Pregnancies: ?? 5, Para 3, Ab 1 Height: ? 65 in Weight: ? 166 lb LMP: ?Unknown GA by US: ? 13w3d ?? SRINIVASA: 04/11/2021 GA Selected: ??12w6d (From Known E) SRINIVASA: ?04/15/2021 Referring MD: Junie Brizuela MD Cigarette Machine Operator: ??Bela Villafuerte RDMS CPT4: ? 55834 BMI: ?27.62 Hist/Ind: ? Dating ?Unknown LMP ?Hx MEASUREMENTS & AGE ? GROWTH EVALUATION Measurement ??GA ? Range ? Srce %for GA Ratios ----- ---- ------- CRL ??7.4 cm 13w3d (62x9y-30p5e) Hadl CRL 76% GA for sonogram 13w3d (20x7g-88u5t) based on (CRL) Avg ? Heart Rate: 154 bpm EVAL, PLACENTA Location: intrauterine Gestational Sac: normal Heart Rate: 154 bpm CLINICAL SUMMARY Study Number: 1 ?? A single intrauterine gestational sac is seen. ??The SRINIVASA selected is based on a prior ultrasound examination (confirmed). ??There is normal heart motion. ??The right ovary was seen and appears normal. ??The left ovary was seen and appears normal. ??There is no free fluid in the pelvis. ?? IMPRESSION: Single, live, intrauterine at 12w6d. ?? RECOMMEND: Ultrasound in 7 weeks for anatomy screen Thank you for allow us the opportunity to care for your patient. ?? Tima Bejarano MD <Electronic Signature> ??10/07/2020 11:11pm Tima Bejarano MD [facility] ORDERABLES documented in this encounter Visit Diagnoses Diagnosis Date of last menstrual period (LMP) unknown- Primary Encounter for screening for uncertain dates (HCC) 12 weeks gestation of (HCC) state, incidental documented in this encounter
--- OUTSIDE RECORDS SUMMARY | 2024-10-15 15:43 | XMS_ITS | Referral Summary ---
Author Organization [facility] Address [address] [place] [address] Care Team Providers Care Steel Roller Name Role Phone Unavailable Primary Care Provider Unavailabl e Source Comments [facility],non-owned Affiliates and Associated Physician Practices is amultiple site organization consisting of ambulatory clinics and hospital sitesin [place], [place]. This disclosure is being madepursuant to the Care Everywhere program and may not contain all information available regarding this patient. Last updated 18.[facility] Allergies Active Allergy Reactions Criticality Noted Date [...] Mass Index 28.97 02/23/2021 4:31 PM CDT Functional Status Functional Status Response Date of [...] person have difficulty concentrating/remembering/making decisions? No 02/23/2021 Plan of Treatment Not on file Advance Directives * Full Code (Latest Code Status on File) Date Activated Date Inactivated Comments 03/04/2021 8:48 AM 03/06/2021 2:13 PM * Full Code Date Activated Date Inactivated Comments 02/23/2021 4:38 PM 03/04/2021 8:48 AM
--- OUTSIDE RECORDS SUMMARY | 2024-10-15 15:43 | XMS_ITS | Encounter Summary ---
Author Organization [facility] Address [address] [facility] [place] [address] Care Team Providers Care Calendar Control Clerk Blood Bank Name Role Phone Unavailable Primary Care Provider Unavailabl e Reason for Visit * Reason Onset Date Comments Missed Appointment 12/14/2020 Encounter Details Date Type Department Care Team (Late st Contact Info) Description 12/14/2020 Telephone [facility] Health Maternal & Care [address] [place] [address] Yasmine Schaffer RN Missed Appointment Social History Tobacco Use Types Packs/Day Years Used Date Smoking Tobacco: Never Assessed Comments Yes Sex and Gender Information Value Date Recorded Sex Assigned at Not on file Gender Identity Not on file Sexual Orientation Not on file documented as of this encounter Miscellaneous Notes * Telephone Encounter - Yasmine Schaffer RN - 12/14/2020 12:31 PM CST Call placed to Dr. Brizuela's office and message left on nurses voicemail regarding the status of the patient's last two appointments. Informed that our office was cancelling her appointment today at 3:15 due to weather conditions and left a message to call and reschedule. Pt had previously rescheduled her appt from 11/25 to 11/30 and then was a no show on 11/30. Instructed Dr. Brizuela's nurse to call our office with any further questions. ES SCHEDULER documented in this encounter Plan of Treatment Not on file documented as of this encounter Visit Diagnoses Diagnosis Fifth (HCC) state, incidental Encounter for ultrasound ([facility]) Encounter for routine screening for malformation using ultrasonics Hx of section Other postprocedural status Herpes Herpes simplex without mention of complication documented in this encounter
--- OUTSIDE RECORDS SUMMARY | 2024-10-15 15:43 | XMS_ITS | Encounter Summary ---
Author Organization [facility] Address [address] [facility] [place] [address] Care Team Providers Care Health And Nutrition Specialist Name Role Phone Unavailable Primary Care Provider Unavailabl e Reason for Visit * Reason Onset Date Comments Missed Appointment 12/04/2020 missed 11/30/20 appt Encounter Details Date Type Department Care Team (Late st Contact Info) Description 12/04/2020 Telephone [facility] Maternal & Care [address] [place] [address] Igor Siegel Missed Appointment (missed 11/30/20 appt) Social History Tobacco Use Types Packs/Day Years Used Date Smoking Tobacco: Never Assessed Comments Yes Sex and Gender Information Value Date Recorded Sex Assigned at Not on file Gender Identity Not on file Sexual Orientation Not on file documented as of this encounter Miscellaneous Notes * Telephone Encounter - Igor Siegel - 12/04/2020 10:51 AM CST Attempted to call to reschedule missed appt on 11/30/20 left VM [employer] [employer] SOCIAL WORK PROFESSOR documented in this encounter Plan of Treatment Not on file documented as of this encounter Visit Diagnoses Not on filedocumented in this encounter
--- OUTSIDE RECORDS SUMMARY | 2024-10-15 15:43 | XMS_ITS | Encounter Summary ---
Author Organization [facility] Address [facility] [place] [address] Care Team Providers Care Finished Yarn Examiner Name Role Phone Unavailable Primary Care Provider Unavailabl e Reason for Visit * Reason Onset Date Comments Confirmation 10/21/2022 Encounter Details Date Type Department Care Team (Late st Contact Info) Description 10/21/2022 Telephone [facility] - Internal Medicine [address] [place] [phone] Ajay Marino MD [address] [place] [address] [phone] Confirmation Social History Tobacco Use Types Packs/Day Years [...] encounter Miscellaneous Notes * Telephone Encounter - Chandu Brownlee - 10/21/2022 3:54 PM CST Who is calling? Chandu If other than self is caller listed on the HIPAA? no If caller is anyone other than listed above, where are they calling from? [facility] What is the reason for call? Attempted to reach patient to confirm upcoming appt with Dr. Marino. Appointment cancelled. Expected Response from the Clinic? N/A UME MAKER documented in this encounter Plan of Treatment Not on file documented as of this encounter Visit Diagnoses Not on filedocumented in this encounter
--- OUTSIDE RECORDS SUMMARY | 2024-10-15 15:43 | XMS_ITS | Encounter Summary ---
Author Organization [facility] Address [address] [facility] [address] Care Team Providers Care Conveyor Feeder Offbearer Name Role Phone Unavailable Primary Care Provider Unavailabl e Reason for Visit * Reason Comments Ultrasound Encounter Details Date Type Department Care Team (Latest Contact Info) Description 01/06/2021 10:06 AM CUFF SETTER - 01/06/2021 11:59 PM CUFF SETTER Hospital Encounter [facility] Maternal & Care [address] [place] [address] Tima Bejarano MD Discharge Disposition: Home or Self Care Social History Tobacco Use Types Packs/Day Years Used Date Smoking Tobacco: Never Assessed Comments Yes Sex and Gender Information Value Date Recorded Sex Assigned at Not on file Gender Identity Not on file Sexual Orientation Not on file documented as of this encounter Plan of Treatment Not on file documented as of this encounter Procedures Procedure Name Priority Date/Time Associated Diagnosis Comments SONOGRAM - COMPLETE Routine 01/06/2021 1 0:14 AM CUFF SETTER Fifth (HCC) Encounter for ultrasound (HCC) Hx of section documented in this encounter Results * SONOGRAM - COMPLETE (01/06/2021 10:14 AM CUFF SETTER) Anatomical Region Laterality Modality Other 01/06/2021 10:1 4 AM CUFF SETTER Narrative 01/06/2021 11:11 AM CUFF SETTER ? - VICENTE Nicoleh Maternal [facility] ? [facility] ?PHONE: ??FAX: ? Pat. Name: ?HANNAH PYLE Pat. No: ?[id number] Study Date: ?? 01/06/2021 ??10:14am , Age: ? 1995, 25 Pregnancies: ?? 5, Para 3, Ab 1 Height: ? 65 in Weight: ? 166 lb LMP: ?Unknown GA by Base: ?? 25w6d ?? SRINIVASA: 04/15/2021 GA by US: ? 25w6d ?? SRINIVASA: 04/15/2021 GA Selected: ??25w6d (From [facility]) SRINIVASA: ?04/15/2021 Referring MD: Junie Brizuela MD Putaway Driver: ??Suha Downey RDMS CPT4: ? 07966 BMI: ?27.62 Hist/Ind: ? Unknown LMP ?Hx MEASUREMENTS & AGE ? GROWTH EVALUATION Measurement ??GA ? Range ? Srce %for GA Ratios ----- ---- ------- BPD ??6.6 cm 26w4d (62s4g-22e5p) Hadl BPD 63% FL/BPD 0.71 (0.71 - 0.87) HC ??24.1 cm 26w1d (64c6j-50d0o) Hadl HC ??35% FL/AC ??0.21 (0.20 - 0.24) AC ??22.6 cm 27w0d (28b7k-56v9h) Hadl AC ??74% HC/AC ??1.07 (1.01 - 1.20) FL ?? 4.7 cm 25w4d (61e5j-81u6r) Hadl FL ??28% CI ? 0.77 (0.70 - 0.86) HL ?? 4.5 cm 26w5d (90l2k-98h1b) Cyril HL ??64% Cere 3.0 cm 26w3d (79p9w-40y6j) Hill Cere64% NB ?? 0.8 cm ? (18b0t-64k3f) Sone NB ??28% GA for sonogram 25w6d (69z7b-12g0s) ?? Weight Estimate: based on (BPD,HC,AC,FL) Hadlock ?Weight: 931 gm (795-1067gm) Hadlo ? : 2lbs, 0oz ? Normal: 895 gm (671- 1118gm) Hadlo ? Wt% ? 63% for 25w6d Heart Rate: 142 bpm Amniotic Fluid Index: 04.5cm (Deepest Pocket) EVAL, PLACENTA Presentation: cephalic Umbilical Cord: 3 Vessels Placenta: fundal Heart Rate: 142 bpm Amniotic Fluid Volume: normal Anatomy!Normal!Abnormal!Suboptimal!Prev. Seen!Comments Cranium ?! ?? x ??! ?! ?! ?! Mdl (CSP/Thal! ?? x ??! ?! ?! ?! Ventricles ?? ! ?? x ??! ?! ?! ?! Choroid Plexu! ?? x ??! ?! ?! ?! Cerebellum ?? ! ?? x ??! ?! ?! ?! Cerebellar Ve! ?? x ??! ?! ?! ?! Cisterna M. ??! ?? x ??! ?! ?! ?! Orbits ? ! ?? x ??! ?! ?! ?! Profile ?! ?? x ??! ?! ?! ?! Nasal Bone ?? ! ?? x ??! ?! ?! ?! Lip ?! ?? x ??! ?! ?! ?! Maxilla ?! ?? x ??! ?! ?! ?! Mandible ? ! ?? x ??! ?! ?! ?! Neck ? ! ?? x ??! ?! ?! ?! Spine ?! ?? x ??! ?! ?! ?! Lungs ?! ?? x ??! ?! ?! ?! 4 Chamber Hea! ?? x ??! ?! ?! ?!Echogenic focus ?in left ventricle LVOT ? ! ?? x ??! ?! ?! ?! RVOT ? ! ?? x ??! ?! ?! ?! 3 Vessel View! ?? x ??! ?! ?! ?! 3 Vessel Trac! ?? x ??! ?! ?! ?! Cross-over ?? ! ?? x ??! ?! ?! ?! Ductal Arch ??! ?? x ??! ?! ?! ?! Aortic Arch ??! ?? x ??! ?! ?! ?! Caval View ?? ! ?? x ??! ?! ?! ?! Situs ?! ?? x ??! ?! ?! ?! Diaphragm ?! ?? x ??! ?! ?! ?! Stomach ?! ?? x ??! ?! ?! ?! Liver ?! ?? x ??! ?! ?! ?! Bowel ?! ?? x ??! ?! ?! ?! Kidneys ?! ?? x ??! ?! ?! ?! Bladder ?! ?? x ??! ?! ?! ?! 3 Vessel Cord! ?? x ??! ?! ?! ?! Cord In! ?? x ??! ?! ?! ?! Upper Extremi! ?? x ??! ?! ?! ?! Hands ?! ?? x ??! ?! ?! ?! Lower Extremi! ?? x ??! ?! ?! ?! Feet ? ! ?? x ??! ?! ?! ?! External Danita! ?! ?! ?! ?!Male Placental Cor! ?? x ??! ?! ?! ?! CLINICAL SUMMARY Study Number: 2 ?? A single fetus is seen in cephalic presentation. ??The measurements today are consistent with appropriate interval growth. ??The SRINIVASA is based on a prior ultrasound. ??The amniotic fluid volume is within normal limits. ??The anatomy was technically adequate. ?? IMPRESSION: Single, live intrauterine at 25w6d ?? size is within normal limits ?? Amniotic fluid volume: within normal limits ?? No major malformations were seen within the limitations of ultrasound ?? RECOMMEND: Ultrasound follow up as clinically indicated Thank you for allowing us they opportunity to care for your patient ?? Tima Bejarano MD <Electronic Signature> ??01/06/2021 11:10am Tima Bejarano MD [facility] ORDERABLES documented in this encounter Visit Diagnoses Diagnosis Fifth (HCC) state, incidental Encounter for ultrasound ([facility]) Encounter for routine screening for malformation using ultrasonics Hx of section Other postprocedural status Herpes Herpes simplex without mention of complication Encounter for screening for uncertain dates (HCC) 25 weeks gestation of (HCC) state, incidental documented in this encounter
--- OUTSIDE RECORDS SUMMARY | 2024-10-15 15:44 | XMS_ITS | Encounter Summary ---
Author Organization [facility] Address [address] [place] [address] Care Team Providers Care Railroad Wheels And Axles Inspector Name Role Phone No, Physician Primary Care Provider [phone] Reason for Visit * Reason Comments Routine Visit Encounter Details Date Type Department Care Team (Late st Contact Info) Description 08/22/2023 10:10 AM CDT Office Visit [facility] [address] [place] [address] Margareth Herrera, DO [address] [place] [address] Encounter for supervision of other normal in third trimester (Primary Dx); 36 weeks gestation of Social History Tobacco Use Types Packs/Day Years Used Date Smoking Tobacco: Every Day Vaping Smokeless Tobacco: Never Social Connection and Isolat ion Panel [NHANES] Answer Date Recorded In a typical week, how many times do you talk on the phone with family, friends, or neighbors? More than three times a week 08/22/2023 How often do you get togethe r with friends or relatives? More than three times a week 08/22/2023 How often do you attend chur ch or confucianist services? More than 4 times per year 08/22/2023 Do you belong to any clubs o r organizations such as jainism groups, unions, fraternal or athletic groups, or school groups? No 08/22/2023 How often do you attend meet ings of the clubs or organizations you belong to? More than 4 times per year 08/22/2023 Are you , , di vorced, , never , or living with a partner? 08/22/2023 AUDIT-C Answer Date Recorded Q1: How often do you have a drink containing alcohol? Never 08/22/2023 Q2: How many drinks containi ng alcohol do you have on a typical day when you are drinking? Patient does not drink Q3: How often do you have si x or more drinks on one occasion? Never 08/22/2023 Overall Financial Resource Strain (CARDIA) Answe r Date Recorded How hard is it for you to pa y for the very basics like food, housing, medical care, and heating? Not hard at all 08/22/2023 PHQ-2 Answer Date Recorded PHQ-2 Total Score (If total score is 3 or more points, staff should administer the PHQ-9) 0 08/22/2023 [facility] Occupat ional [facility] - Occupational Stress Questionnaire Answer Date Recorded Do you feel stress - tense, restless, nervous, or anxious, or unable to sleep at night because your mind is troubled all the time - these days? Not at all 08/22/2023 Exercise Vital Sign Answer Date Recorde d On average, how many days pe r week do you engage in moderate to strenuous exercise (like a brisk walk)? 7 days 08/22/2023 On average, how many minutes do you engage in exercise at this level? 30 min 08/22/2023 Hunger Vital Sign Answer Date Recorded Within the past 12 months, y ou worried that your food would run out before you got the money to buy more. Never true 08/22/20 23 Within the past 12 months, t he food you bought just didn't last and you didn't have money to get more. Never true 08/22/2023 PRAPARE - Transportation Answer Date Re corded In the past 12 months, has l ack of transportation kept you from medical appointments or from getting medications? No 07/31 In the past 12 months, has l ack of transportation kept you from meetings, work, or from getting things needed for daily living? No 08/22/2023 Housing Stability Vital Sign Answer Richard e Recorded In the last 12 months, was t here a time when you were not able to pay the mortgage or rent on time? No 08/22/2023 In the last 12 months, how many places have you lived? 1 08/22/2023 In the last 12 months, was t here a time when you did not have a steady place to sleep or slept in a jail (including now)? No 08/22/2023 Comments Yes Sex and Gender Information Value Date Recorded Sex Assigned at Not on file Legal Sex Female 3:14 PM CDT Gender Identity Not on file Sexual Orientation Not on file Occupation Industry Job Start Date Job End Date None Not on file Not on file Not on file documented as of this encounter Last Filed Vital Signs Vital Sign Reading Time Taken Comments Blood Pressure 118/68 08/22/2023 10:22 AM CDT Pulse - - Temperature - - Respiratory Rate - - Oxygen Saturation - - Inhaled Oxygen Concentration - - Weight 79.9 kg (176 lb 3.2 oz) 08/22/2023 10:22 AM CDT Height - - Body Mass Index 29.32 03/23/2023 10:30 AM CDT documented in this encounter Progress Notes * Margareth Herrera DO - 08/22/2023 10:10 AM CDT Pt tearful, stating she is in so much pain. She states she has been jessica all weekend. She almost went to the ED multiple times. She denies any LOF or VB. Reports good movement. SVE: 4/50/-3. GBS collected. IOL is scheduled for 09/04 at 0600 with tubal the following day. As patient is souncomfortable, recommend she go to L&D for evaluation to see if she is in labor. If not, RTC in 1 week for f/u. documented in this encounter Plan of Treatment Not on file documented as of this encounter Procedures Procedure Name Priority Date/Time Associated Diagnosis Comments POCT URINE GLUCOSE AND PROTEIN Routine 08/22/2023 10:03 AM CDT Encounter for supervision of other normal in third trimester documented in this encounter Results * Group B streptococcus culture, penicillin allergic Vaginal/Rectal (08/22/2023 3:28 PM CDT) Report Final Report: Negative CERNER Comment:Testing performed by : [facility], [address] [facility], [place]., [address] Vaginal/Rectal 08/22/2023 3: 28 PM CDT 08/23/2023 3:22 AM CDT Narrative [facility] ARMENDARIZ - 08/25/2023 9:25 PM CDT Testing performed by [facility] ([phone]). us Margareth Herrera DO LAB MICROBIOLOGY - GENE RAL ORDERABLES Final Result [facility] [address] [address] Department [place] [address] * (ABNORMAL) POCT urine glucose and protein (08/22/2023 10:03 AM CDT) Glucose, ur, POC Negative Negative MG/DL Protein, ur, POC 1+(A) Negative Lot Number [id number] Urine 08/22/2023 10:0 3 AM CDT us Margareth Herrera DO POINT OF CARE TEST ORDE RABLES Final Result documented in this encounter Visit Diagnoses Diagnosis Encounter for supervision of other normal in third trimester- Primary 36 weeks gestation of Encounter for supervision of other normal in third trimester 36 weeks gestation of documented in this encounter Care Teams Railroad Wheels And Axles Inspector Relationship Specialty Start Date End Date No, Physician PCP - General 03/09/23 documented as of this encounter
--- OUTSIDE RECORDS SUMMARY | 2024-10-15 15:44 | XMS_ITS | Encounter Summary ---
Author Organization [facility] Healthcare Address [address] [place] [address] Care Team Providers Care Dialysis Rn Name Role Phone No, Physician Primary Care Provider [phone] Reason for Visit * Reason Comments Problem Saw Dr. Herrera today, SVE 5cm. Contracted all weekend. Encounter Details Date Type Department Care Team (Late st Contact Info) Description 08/22/2023 12:19 PM CDT - 08/22/2023 2:35 PM CDT Hospital Encounter [facility] [address] [place] [address] Margareth Herrera, DO [address] [place] [address] Discharge Disposition: Discharge to home or self care Social History Tobacco Use Types Packs/Day Years Used Date Smoking Tobacco: Every Day Vaping Smokeless Tobacco: Never Tobacco Cessation:Ready to Q uit: Not Asked; Counseling Given: Not Answered Social Connection and Isolat ion Panel [NHANES] Answer Date Recorded In a typical week, how many times do you talk on the phone with family, friends, or neighbors? More than three times a week 08/22/2023 How often do you get togethe r with friends or relatives? More than three times a week 08/22/2023 How often do you attend chur ch or anabaptism services? More than 4 times per year 08/22/2023 Do you belong to any clubs o r organizations such as restorationist groups, unions, fraternal or athletic groups, or [...] staff should administer the PHQ-9) 0 08/22/2023 [facility] of Occupat ional [facility] - Occupational Stress Questionnaire Answer Date Recorded [...] place to sleep or slept in a group home (including now)? No 08/22/2023 Comments Yes Sex [...] Sign Reading Time Taken Comments Blood Pressure 105/63 08/22/2023 1:30 PM CDT Pulse 84 08/22/2023 1:30 PM CDT Temperature - - Respiratory Rate - - Oxygen Saturation - - Inhaled Oxygen Concentration - - Weight - - Height - - Body Mass Index - - documented in this encounter Discharge Instructions * Discharge Instructions* Ashli Biggs RN - 08/22/2023 1:55 PM CDT Keep next appt as planned * Attachments The following attachments cannot be sent through Care Everywhere. * Early Labor Signs (AfterCare(R) Instructions(ER/ED)) (Trinidadian) * at 35 to 38 Weeks (Discharge Care) (Trinidadian) documented in this encounter Discharge Disposition Disposition Code Departure Means Destination Discharge to home or self care documented in this encounter Nursing Notes * Ashli Biggs RN - 08/22/2023 2:00 PM CDT Full report given to Dr. Herrera with this RN's SVE and irregular ctx with reactive FHT's. Ok to dc pt to home and f/u as planned. Pt verbalized understanding, reviewed all maternal early warning signs and when to return to hospital. Pt verbalized understanding. Pt, and family, ambulated off unit in stable condition. 08/22/2023 1405 Ashli Biggs RN documented in this encounter Plan of Treatment Not on file documented as of this encounter Visit Diagnoses Not on filedocumented in this encounter Discontinued Medications Medication Sig Discontinue Reason Start Date End Da te docusate sodium (COLACE) 100 mg capsuleIndications:const ipation Take 1 capsule (100 mg total) by mouth 2 (two) times a day Therapy completed 05/15/2023 08/22/2023 polyethylene glycol (Miralax) 17 gram packetIndications:consti pation Take 1 packet (17 g total) by mouth daily Therapy completed 05/15/2023 08/22/2023 [id number] (Kosher Plus Iron) 30 mg iron- 1 mg tablet Take 1 tablet by mouth daily Therapy completed 03/06/2021 08/22/2023 documented as of this encounter Orders Discharge Count Last Ordered Date First Orde red Date DISCHARGE PATIENT 1 08/22/2023 documented in this encounter Care Teams Dialysis Rn Relationship Specialty Start Date End Date No, Physician PCP - General 03/09/23 documented as of this encounter
--- OUTSIDE RECORDS SUMMARY | 2024-10-15 15:44 | XMS_ITS | Encounter Summary ---
Author Organization [facility] Healthcare Address [address] [place] [address] Care Team Providers Care Event Organizer Name Role Phone No, Physician Primary Care Provider [phone] Reason for Visit * Reason Comments Contractions Encounter Details Date Type Department Care Team (Late st Contact Info) Description 09/01/2023 2:06 AM CDT - 09/01/2023 4:40 AM CDT Hospital Encounter [facility] [address] [place] [address] Margareth Herrera, DO [address] [place] [address] Discharge Disposition: Discharge to home or self care Social History Tobacco Use Types Packs/Day Years Used Date Smoking Tobacco: Every Day Vaping Smokeless Tobacco: Never Social Connection and Isolat ion Panel [NHANES] Answer Date Recorded In a typical week, how many times do you talk on the phone with family, friends, or neighbors? More than three times a week 09/01/2023 How often do you get togethe r with friends or relatives? More than three times a week 09/01/2023 How often do you attend chur ch or advent services? More than 4 times per year 09/01/2023 Do you belong to any clubs o r organizations such as spiritism groups, unions, fraternal or athletic groups, or school groups? No 09/01/2023 How often do you attend meet ings of the clubs or organizations you belong to? More than 4 times per year 09/01/2023 Are you , , di vorced, , never , or living with a partner? 09/01/2023 AUDIT-C Answer Date Recorded Q1: How often do you have a drink containing alcohol? Never 09/01/2023 Q2: How many drinks containi ng alcohol do you have on a typical day when you are drinking? Patient does not drink Q3: How often do you have si x or more drinks on one occasion? Never 09/01/2023 Overall Financial Resource Strain (CARDIA) Answe r Date Recorded How hard is it for you to pa y for the very basics like food, housing, medical care, and heating? Not hard at all 09/01/2023 PHQ-2 Answer Date Recorded PHQ-2 Total Score (If total score is 3 or more points, staff should administer the PHQ-9) 0 09/01/2023 [facility] of Occupat ional [facility] - Occupational Stress Questionnaire Answer Date Recorded Do you feel stress - tense, restless, nervous, or anxious, or unable to sleep at night because your mind is troubled all the time - these days? Not at all 09/01/2023 Exercise Vital Sign Answer Date Recorde d On average, how many days pe r week do you engage in moderate to strenuous exercise (like a brisk walk)? 7 days 09/01/2023 On average, how many minutes do you engage in exercise at this level? 30 min 09/01/2023 Hunger Vital Sign Answer Date Recorded Within the past 12 months, y ou worried that your food would run out before you got the money to buy more. Never true 09/01/20 23 Within the past 12 months, t he food you bought just didn't last and you didn't have money to get more. Never true 09/01/2023 PRAPARE - Transportation Answer Date Re corded In the past 12 months, has l ack of transportation kept you from medical appointments or from getting medications? No 12/2022 In the past 12 months, has l ack of transportation kept you from meetings, work, or from getting things needed for daily living? No 09/01/2023 Housing Stability Vital Sign Answer Richard e Recorded In the last 12 months, was t here a time when you were not able to pay the mortgage or rent on time? No 09/01/2023 In the last 12 months, how many places have you lived? 1 09/01/2023 In the last 12 months, was t here a time when you did not have a steady place to sleep or slept in a half-way (including now)? No 09/01/2023 Comments Yes Sex and Gender Information Value [...] Sign Reading Time Taken Comments Blood Pressure 118/76 09/01/2023 4:05 AM CDT Pulse 71 09/01/2023 4:05 AM CDT Temperature - - Respiratory Rate - - Oxygen Saturation - - Inhaled Oxygen Concentration - - Weight - - Height - - Body Mass Index - - documented in this encounter Discharge Instructions * Discharge Instructions* Tereza Barrios RN - 09/01/2023 4:17 AM CDT Return to labor and delivery on Monday for scheduled induction * Attachments The following attachments cannot be sent through Care Everywhere. * Early Labor Signs (Discharge Care) (Liberian) documented in this encounter Medications at Time of Discharge nitrofurantoin monohydrate (MACROBID) 100 mg capsule Take 1 capsule (100 mg total) by mouth 2 (two) times a day for 7 days 14 capsule 09/02/2023 09/04/2023 documented as of this encounter Discharge Disposition Disposition Code Departure Means Destination Discharge to home or self care documented in this encounter Nursing Notes * Tereza Barrios RN - 09/01/2023 4:40 AM CDT Pt arrived to L&D with complaints of contractions. Pt just left [facility] L&D, upon arrival SVE is /-2, UA sent, pt appears to be uncomfortable, no contractions palpable, Dr. Sheth notified of findings UA results and repeat SVE /-2. Orders for discharge received. Pt verbalized understanding of discharge instructions and when to return to L&D, pt ambulated off unit in stable condition. 09/01/2023 Tereza Barrios, RN documented in this encounter Plan of Treatment Not on file documented as of this encounter Procedures Procedure Name Priority Date/Time Associated Diagnosis Comments URINALYSIS AND REFLEX TO MICROSCOPIC AND CULTURE Routine 09/01/2023 2:28 AM CDT URINALYSIS, MICROSCOPIC ONLY Routine 09/01/2023 2:28 AM CDT documented in this encounter Results * (ABNORMAL) Urinalysis, microscopic only (09/01/2023 2:28 AM CDT) WBC, ur 0-5 0 - 5 /HPF [facility] ([facility]) RBC, ur 0-2 0 - 2 /HPF [facility] ([facility]) Epithelial cells, squamous, ur 1-5 0 - 5 /HPF [facility] ([facility]) Bacteria, ur Trace(A) [facility] ([facility]) Mucous, ur Present(A) [facility] ([facility]) Culture Reflex Comment Reflex conditions for urine culture (WBC >10) not met. [facility] ([facility]) Urine, clean voided 09/01/2023 2:28 AM CDT 09/01/2023 2:31 AM CDT Linwood Sheth MD LAB URINE ORDERABLES Final Re sult [facility] ([facility]) [address] [facility] Department [place] [address] * (ABNORMAL) Urinalysis reflex to microscopic and culture Urine, clean voided (09/01/2023 2:28 AM CDT) Color, ur Yellow Yellow [facility] ([facility]) Clarity, ur Clear Clear [facility] ([facility]) Specific gravity, ur 1.020 1.003 - 1.030 [facility]) pH, urine 6.5 [facility] ([facility]) Comment: Interpretive Data ? Urine pH is affected by diet, medications, systemic acid-base disturbances, and renal tubular function. ??pH may affect urinary stone formation. ??For example, urine pH below 6.0 may help reduce the tendency for calcium phosphate stones and pH greater than 6.0 may reduce the tendency for uric acid stone formation. Source: [facility] Pulsity Current Interpretive Data was last revised on 2017 Protein, ur ql Trace Negative [facility] ([facility]) Glucose, ur ql Negative Negative [facility] ([facility]) Ketones, ur Negative Negative [facility] ([facility]) Bilirubin, ur Negative Negative [facility] ([facility]) Blood, ur Negative Negative [facility] ([facility]) Urobilinogen, ur <2.0 <2.0 mg/dL [facility] ([facility]) Nitrite, ur Negative Negative [facility] ([facility]) Leukocyte esterase, ur 4+(A) Negative [facility] ([facility]) UA reflex comment Reflex to microscopic UA will be performed. [facility] ([facility]) Urine, clean voided 09/01/2023 2:28 AM CDT 09/01/2023 2:31 AM CDT Linwood Sheth MD LAB MICROBIOLOGY - GENERAL OR DERABLES Final Result [facility] ([facility]) [address] [facility] Department [place] [address] documented in this encounter Visit Diagnoses Not on filedocumented in this encounter Administered Medications Inactive Administered Medications - up to 3 most recent administrations Medication Order MAR Action Action Date Dose Rate Site calcium carbonate (TUMS) 500 mg (200 mg elemental calcium) chewable tablet - ADS Override Pull Starting on Mon09/01/23 at 0426, For 1 dose, Created by desire override calcium carbonate (TUMS) chewable tablet 1,000 mg 1,000 mg (400 mg of elemental calcium), oral, Once, On Mon09/01/23 at 0445, For 1 dose Given 09/01/2023 4:28 AM CDT 1,000 mg documented in this encounter Active and Recently Administered Medications Times are shown in CDT. Scheduled Medication Order 08/30/2023 08/31/2023 09/01/2023 calcium carbonate (TUMS) chewable tablet 1,000 mg (COMPLETED) 1,000 mg (400 mg of elemental calcium), oral, Once, On Mon09/01/23 at 0445, For 1 dose 0428 (Given - Provid er: Tereza Barrios RN) documented in this encounter Orders Discharge Count Last Ordered Date First Orde red Date DISCHARGE PATIENT 1 09/01/2023 documented in this encounter Care Teams Event Organizer Relationship Specialty Start Date End Date No, Physician PCP - General 03/09/23 documented as of this encounter
--- OUTSIDE RECORDS SUMMARY | 2024-10-15 15:44 | XMS_ITS | Encounter Summary ---
Author Organization [facility] Healthcare Address [address] [place] [id number] Care Team Providers Care Animal Nurse Name Role Phone No, Physician Primary Care Provider [phone] Encounter Details Date Type Department Care Team (Latest Contact Info) Description 08/22/2023 10:04 AM CDT - 08/22/2023 11:59 PM CDT Hospital Encounter [address] [id number] Encounter for supervision of other normal in third trimester; 36 weeks gestation of Discharge Disposition: Discharge to home or self [...] week 08/22/2023 How often do you attend [facility] or church services? More than 4 times per year 08/22/2023 Do you belong to any clubs o r organizations such as denominational groups, unions, fraternal or athletic groups, or [...] you are drinking? Patient does not drink 3 Q3: How often do you have si [...] staff should administer the PHQ-9) 0 08/22/2023 [facility] of Occupat ional Health - Occupational Stress Questionnaire Answer Date Recorded [...] place to sleep or slept in a fdc (including now)? No 08/22/2023 Comments Yes Sex and Gender Information Value Date Recorded Sex Assigned at Not on file Legal Sex Female 3:14 PM CDT Gender Identity Not on file Sexual Orientation Not on file Occupation Industry Job Start Date Job End Date None Not on file Not on file Not on file documented as of this encounter Discharge Disposition Disposition Code Departure Means Destination Discharge to home or self care documented in this encounter Plan of Treatment Not on file documented as of this encounter Procedures Procedure Name Priority Date/Time Associated Diagnosis Comments GROUP B STREPTOCOCCUS CULTURE, PENICILLIN ALLERGIC Routine 08/22/2023 3:28 PM CDT Encounter for supervision of other normal in third trimester 36 weeks gestation of documented in this encounter Results * Group B streptococcus culture, penicillin allergic Vaginal/Rectal (08/22/2023 3:28 PM CDT) Report Final Report: Negative [facility] Comment:Testing performed by : [facility], [address] [place] [address]., [id number] Vaginal/Rectal 08/22/2023 3: 28 PM CDT 08/23/2023 3:22 AM CDT Narrative [facility] - 08/25/2023 9:25 PM CDT Testing performed by [facility] Microbiology Laboratory ([phone]). Margareth Herrera DO LAB MICROBIOLOGY - GENE RAL ORDERABLES Final Result [facility] [address] Department [place] [address] documented in this encounter Visit Diagnoses Diagnosis Encounter for supervision of other normal in third trimester 36 weeks gestation of documented in this encounter Care Teams Animal Nurse Relationship Specialty Start Date End Date No, Physician PCP - General 03/09/23 documented as of this encounter
--- OUTSIDE RECORDS SUMMARY | 2024-10-15 15:44 | XMS_ITS | Encounter Summary ---
Author Organization [facility] Healthcare Address [address] [place] [address] Care Team Providers Care Fiberglass Quality Technician Name Role Phone No, Physician Primary Care Provider [phone] Encounter Details Date Type Department Care Team (Late st Contact Info) Description 08/09/2023 Telephone [facility] [address] [place] [address] Margareth Herrera, DO [address] [place] [address] Social History Tobacco Use Types Packs/Day Years Used Date Smoking Tobacco: Every Day Vaping Smokeless Tobacco: Never Overall Financial Resource Strain (CARDIA) Answe r Date Recorded How hard is it for you to pa y for the very basics like food, housing, medical care, and heating? Somewhat hard 04/14/2023 Hunger Vital Sign Answer Date Recorded Within the past 12 months, y ou worried that your food would run out before you got the money to buy more. Never true 04/14/20 23 Within the past 12 months, t he food you bought just didn't last and you didn't have money to get more. Never true 04/14/2023 PRAPARE - Transportation Answer Date Re corded In the past 12 months, has l ack of transportation kept you from medical appointments or from getting medications? No 03/30 In the past 12 months, has l ack of transportation kept you from meetings, work, or from getting things needed for daily living? No 04/14/2023 Housing Stability Vital Sign Answer Richard e Recorded In the last 12 months, was t here a time when you were not able to pay the mortgage or rent on time? No 04/14/2023 In the last 12 months, how many places have you lived? 1 04/14/2023 In the last 12 months, was t here a time when you did not have a steady place to sleep or slept in a senior living (including now)? No 04/14/2023 Comments Yes Sex and Gender Information Value Date Recorded Sex Assigned at Not on file Legal Sex Female 3:14 PM CDT Gender Identity Not on file Sexual Orientation Not on file Occupation Industry Job Start Date Job End Date None Not on file Not on file Not on file documented as of this encounter Miscellaneous Notes * Telephone Encounter - Elena Veliz LPN - 08/09/2023 10:00 AM CDT Patient notified. States baby is moving and not having any abdominal pain or cramping or vaginal bleeding. States when she was in the ER they did test her for UTI and started her on nitrofurantoin. * Telephone Encounter - Hannah Pop MD - 08/09/2023 9:57 AM CDT Okay to keep appointment as scheduled next week as long as feeling good movement from baby and no vaginal bleeding or abdominal pain since fall. * Telephone Encounter - Vanesa Farooq MA - 08/09/2023 8:54 AM CDT FYI:Pt called and she is [address] wanted to update Dr[address] Herrera stating she went to ER for a yeast infection few days ago and was treated and then yesterday fell in her moms garage and went to [facility] and got checked out. Pt states feels fine and next appt is 08/17 does she need tocome in sooner or is 08/17 ok. [id number]#[phone] documented in this encounter Plan of Treatment Not on file documented as of this encounter Visit Diagnoses Not on filedocumented in this encounter Care Teams Fiberglass Quality Technician Relationship Specialty Start Date End Date No, Physician PCP - General 03/09/23 documented as of this encounter
--- OUTSIDE RECORDS SUMMARY | 2024-10-15 15:44 | XMS_ITS | Encounter Summary ---
Author Organization [facility] Healthcare Address [address] [place] [address] Care Team Providers Care Railroad Dining Car Steward/Stewardess Name Role Phone No, Physician Primary Care Provider [phone] Reason for Visit * Reason Comments Routine Visit Encounter Details Date Type Department Care Team (Late st Contact Info) Description 08/02/2023 10:20 AM CDT Office Visit [facility] [address] [place] [address] Margareth Herrera, DO [address] [place] [address] Encounter for supervision of other normal in third trimester (Primary Dx) Social History Tobacco Use Types Packs/Day Years [...] slept in a fdc (including now)? No 04/14/2023 Comments Yes Sex [...] Sign Reading Time Taken Comments Blood Pressure 118/64 08/02/2023 10:36 AM CDT Pulse - - Temperature - - Respiratory Rate - - Oxygen Saturation - - Inhaled Oxygen Concentration - - Weight 79 kg (174 lb 3.2 oz) 08/02/2023 10:36 AM CDT Height - - Body Mass Index 28.99 03/23/2023 10:30 AM CDT documented in this encounter Progress Notes * Margareth Herrera DO - 08/02/2023 10:20 AM CDT Pt doing well with no complaints. Denies ctx, LOF, and VB. Reports good movement. Tubal date is scheduled. Will call to schedule IOL for the day prior. US ordered today to confirm presentation. Plan for GBS at next visit. Precautions given. RTC in 2 weeks. documented in this encounter Plan of Treatment Not on file documented as of this encounter Procedures Procedure Name Priority Date/Time Associated Diagnosis Comments POCT URINE GLUCOSE AND PROTEIN Routine 08/02/2023 10:30 AM CDT Encounter for supervision of other normal in third trimester documented in this encounter Results * POCT urine glucose and protein (08/02/2023 10:30 AM CDT) Glucose, ur, POC Negative Negative MG/DL Protein, ur, POC Negative Negative Lot Number [id number] Urine 08/02/2023 10:3 0 AM CDT Margareth Herrera DO POINT OF CARE TEST YIMI MACIAS Final Result documented in this encounter Visit Diagnoses Diagnosis Encounter for supervision of other normal in third trimester- Primary documented in this encounter Care Teams Railroad Dining Car Steward/Stewardess Relationship Specialty Start Date End Date No, Physician PCP - General 03/09/23 documented as of this encounter
--- OUTSIDE RECORDS SUMMARY | 2024-10-15 15:44 | XMS_ITS | Referral Summary ---
Author Organization [facility] [address] Address [address] [place] [address] Phone Care Team Providers Care Byproducts Pump Operator Name Role Phone No, Physician Primary Care Provider [phone] Margareth Herrera DO Unavailable [phone] Allergies Active Allergy Reactions Criticality Noted Date Comments Amoxicillin Rash Medium 02/23/2021 Medications HYDROcodone-acet aminophen (NORCO) 5-325 mg per tabletIndication s:Pain Take 1 tablet by mouth every 6 (six) hours as needed for pain Active oxyCODONE-acetam inophen (PERCOCET) 5-325 mg per tabletIndication s:Pain Take 1 tablet by mouth every 4 (four) hours as needed for pain 12 tablet 09/05/2023 Active Active Problems Problem Noted Date Diagnosed Date Request for sterilization 07/17/2023 Overview (07/17/2023): Medicaid form filled out 07/17. Maternal varicella, non-immune 03/30/2023 Encounter for supervision of normal in second trimester 03/23/2023 Overview (03/30/2023): Dated by 15w3d PNL: B+/I/-/-, NR, Hep C NR GC/CT: neg UCx: neg Pap: NILM Genetics: neg quad MOF/MOC: to be addressed at a later visit History of 03/23/2023 Overview (03/23/2023): In G3. Pt states she believes it was for breech but notes from last say it was for HSV outbreak. Operative report requested. Pt had a successful in G4 and desires to TOLAC. She was counseled today. Risk of uterine rupture quoted as <1% if she had a LTCS. She was counseled on the limitations of our [facility] and that can not guarantee the loss prevention agent OB will offer a TOLAC if she labors and I am not available. HSV (herpes simplex virus) anogenital infection 03/23/2023 Overview (03/23/2023): Pt reports last outbreak was years ago. Will plan for prophylaxis in 3rd trimester. History of premature rupture of membrane s (PPROM) 03/23/2023 Overview (05/15/2023): In last at 32 weeks. Counseled pt that we often do not know why PPROM occurs. Marijuana use 03/23/2023 Overview (03/23/2023): Cessation encouraged. Pt states she is working on quitting. Social History Tobacco Use Types Packs/Day Years [...] often do you attend chur ch or taoist services? More than 4 times per year 09/01/2023 Do you belong to any clubs o r organizations such as mosque groups, unions, fraternal or athletic groups, or school groups? No 09/01/2023 How often do you attend meet ings of the clubs or organizations you belong to? More than 4 times per year 09/01/2023 Are you , , di vorced, , never , or living with a partner? 09/01/2023 AUDIT-C Answer Date Recorded Q1: How often do you have a drink containing alcohol? Never 09/05/2023 Q2: How many drinks containi ng alcohol do you have on a typical day when you are drinking? Patient does not drink Q3: How often do you have si x or more drinks on one occasion? Never 09/05/2023 Overall Financial Resource Strain (CARDIA) Answe r Date Recorded How hard is it for you to pa y for the very basics like food, housing, medical care, and heating? Not hard at all 09/01/2023 PHQ-2 Answer Date Recorded PHQ-2 Total Score (If total score is 3 or more points, staff should administer the PHQ-9) 0 09/01/2023 [facility] - Occupational [...] place to sleep or slept in a prison (including now)? No 09/01/2023 Personal Safety Answer Date Recorded Have you ever been in or are you currently in a harmful physical or emotional relationship or is someone making you feel afraid or unsafe? Denies 09/05/2023 Comments No Sex and Gender Information Value Date Recorded Sex Assigned at Not on file Legal Sex Female 3:14 PM CDT Gender Identity Not on file Sexual Orientation Not on file Occupation Industry Job Start Date Job End Date None Not on file Not on file Not on file Last Filed Vital Signs Vital Sign Reading Time Taken Comments Blood Pressure 118/73 09/05/2023 10:07 AM ACTIVITY ASSISTANT Pulse 62 09/05/2023 10:07 AM ACTIVITY ASSISTANT Temperature 36.2 ??C (97.1 ??F) 09/05/2023 10:[address] Respiratory Rate 18 09/05/2023 10:07 AM ACTIVITY ASSISTANT Oxygen Saturation 99% 09/05/2023 10:07 AM ACTIVITY ASSISTANT Inhaled Oxygen Concentration - - Weight 75.8 kg (167 lb 1.7 oz) 09/05/2023 6:20 A M ACTIVITY ASSISTANT Height 165.1 cm (5' 5 ) 09/05/2023 6:20 AM ACTIVITY ASSISTANT Body Mass Index 27.81 09/05/2023 6:20 AM ACTIVITY ASSISTANT Plan of Treatment Not on file Procedures Procedure Name Priority Date/Time Associated Diagnosis Comments HEPATITIS C ANTIBODY Routine 03/23/2023 11:20 AM CDT care, subsequent , second trimester 15 weeks gestation of PAP WITH REFLEX TO HIGH RISK HPV Routine 03/23/2023 8:02 AM CDT Screening for malignant neoplasm of cervix from Last 3 Months or Most Recently Relevant to Health Maintenance Results * Hepatitis C antibody (03/23/2023 11:20 AM CDT) Hep C Ab Nonreactive Nonreactive [facility] Comment: Interpretive Data Nonreactive: Antibodies to HCV not detected. Does NOT exclude the possibility of recent exposure to HCV. Equivocal: Equivocal for HCV antibodies. Supplemental molecular testing will be automatically performed to determine infection status in accordance with current CDC screening recommendations. ?? Reactive: Positive for HCV antibodies. ??This may represent current or past HCV infection. Supplemental molecular testing will be automatically performed to determine ??current infection status in accordance with current CDC screening recommendations. Interpretive data was last revised on 2020. Blood 03/23/2023 11:2 0 AM CDT 03/23/2023 5:32 PM CDT Margareth Herrera DO LAB MICROBIOLOGY - GENE RAL ORDERABLES Edited Result - Final [facility] [address] [place] [address] * Pap with reflex to High Risk HPV (03/23/2023 8:02 AM CDT) Thin prep (Pap test) 03/23/2023 8:02 AM CDT 03/23/2023 8:02 AM CDT Narrative PATHOLOGY - 03/28/2023 1:21 PM CDT [facility] Department of Pathology [address] [place], [place] [id number] Final Report Note to Patients: This report may contain a detailed description of human tissue sent by a health care provider to the laboratory for pathologic evaluation. The content of this report is essential for diagnosis and may provide important critical findings. This information may be unfamiliar to patients to review without a medical professional present. It is advised that the patient review this report in the presence of a health care provider who can answer questions and explain the details. Patient Name: ??HANNAH PYLE Address: ??[address], ?? [place], [place] [address] Gender: ??F : ??1995 (Age: 27) Service: ?? Location: ?? Hospital #: ??[id number] Patient Type: ?? SPECIMEN Taken: ??03/23/2023 Received: ??03/23/2023 Accessioned:: ??03/24/2023 Reported: ??03/28/2023 Physician(s): Nessa Mcgee D.O. Diagnosis: SOURCE OF SPECIMEN ? Imaged Thinprep Pap Test w/ Reflex HPV - Raw Material Planner Cytologic Material: STATEMENT OF ADEQUACY ?- Specimen satisfactory for interpretation; endocervical/transformation zone component absent or ?insufficient ? GENERAL CATEGORIZATION: ?- Negative for intraepithelial lesion or malignancy ? INTERPRETATION: ?- Numerous inflammatory cells present ? DISHA Faulkner(ASCP) Report Electronically Reviewed and Signed Out By ??DISHA Faulkner(ASCP) ??03/28/2023 13:21:27Specimen(s) Received: A: Imaged Thinprep Pap Test w/ Reflex HPV - Raw Material Planner Cytologic Material Clinical History: Last Menstrual Period: 12/02/22 Menstrual History: The Pap test is a screening test used to aid in the detection of cervical cancer and its precursors. ??It should not be the sole means by which malignant and premalignant lesions are diagnosed. ??Both false negative and false positive results may occur. ?? It also has poor sensitivity for the detection of endometrial lesions and should not be used to evaluate suspected endometrial abnormalities. ??For these reasons it is most important to obtain Pap tests at regular intervals. The performance characteristics of some immunohistochemical stains, fluorescence in-situ hybridization tests and immunophenotyping by flow cytometry cited in this report (if any) were determined by the Surgical Pathology Department at [facility] as part of an ongoing quality control representative program and in compliance with federally mandated regulations drawn from the Clinical Laboratory Improvement Act of 1988 (CLIA '88). ??Some of these tests rely on the use of analyte specific reagents and are subject to specific labeling requirements by the US Food and Drug Administration. ??Such diagnostic tests may only be performed in a facility that is certified by the Department of Health and Human Services as a high complexity laboratory under CLIA '88. The FDA has determined that such clearance or approval is not necessary. ??This test is used for clinical purposes. ??It should not be regarded as investigational or for research. ??Nevertheless, federal rules concerning the medical use of analyte specific reagents require that the following disclaimer be attached to the report: This test was developed and its performance characteristics determined by the Surgical Pathology Department [facility]. ??It has not been cleared or approved by the U. S. Food and Drug Administration. Margareth Herrera DO LAB CYTOLOGY ORDERABLES Final Result Performing Organization Address City/State/ZIP Co sd Phone Number PATHOLOGY [address] [place] [address] from Last 3 Months or Most Recently Relevant to Health Maintenance Insurance A[employer] BETTER [facility] A[employer]TER [facility] A[employer]TER [facility] Care Teams Byproducts Pump Operator Relationship Specialty Start Date End Date No, Physician PCP - General 03/09/23 Margareth Herrera DO [address] [place] [address] Consulting Physician Obstetrics and Gynecology 09/05/23
--- OUTSIDE RECORDS SUMMARY | 2024-10-15 15:44 | XMS_ITS | Clinical Summary ---
Author Organization [facility] [address] Address [address] [place] [address] Phone Care Team Providers Care Route Service Manager Name Role Phone No, Physician Primary Care Provider [phone] Margareth Herrera DO Unavailable [phone] Allergies Active Allergy Reactions Criticality Noted Date [...] was counseled on the limitations of our [facility] and that can not guarantee the police matron OB will offer a TOLAC if she [...] Pt states she is working on quitting. Surgical History Surgery Date Site/Laterality Comments SECTION Social History Tobacco Use Types Packs/Day Years [...] often do you attend chur ch or anabaptist services? More than 4 times per year 09/01/2023 Do you belong to any clubs o r organizations such as catholic groups, unions, fraternal or athletic groups, or [...] staff should administer the PHQ-9) 0 09/01/2023 [facility] - Occupational Stress [...] place to sleep or slept in a correction (including now)? No 09/01/2023 Personal Safety Answer [...] file Not on file Not on file Obstetrics History Para Term AB IAB SAB Ectopic Multiple Livin g Live Births 6 4 3 1 1 1 4 4 Date Outcome GA Total Labor Labor//3rd Weight Sex Type Anes PTL Shakira A1 A5 Name Clin 9 SAB 2012 Term 40w 0d 3.6 kg (7 lb 15 oz) M Vag-S pont Livin g 2015 Term 40w 0d 2.977 kg (6 lb 9 oz) M Vag-S pont Livin g 2017 Term 40w 0d 2.778 kg (6 lb 2 oz) M CS-Un spec Livin g Complications:Other (Comment ),Breech presentation on examination 2020 34w 0d 0h 16m 0h 13m/0h 03m 2.214 kg (4 lb 14.1 oz) M Vag-S pont Epidur al Y Livin g 9 9 PYLE, BABY BOY NADIR daily MD Complications:None Delivery Location:[facility] ([facility] 5 R) Last Filed Vital Signs Vital Sign Reading Time Taken Comments Blood Pressure 118/73 09/05/2023 10:07 AM ELECTRIC SCOOP OPERATOR Pulse 62 09/05/2023 10:07 AM ELECTRIC SCOOP OPERATOR Temperature 36.2 ??C (97.1 ??F) 09/05/2023 10:[address] Respiratory Rate 18 09/05/2023 10:07 AM ELECTRIC SCOOP OPERATOR Oxygen Saturation 99% 09/05/2023 10:07 AM ELECTRIC SCOOP OPERATOR Inhaled Oxygen Concentration - - Weight 75.8 kg (167 lb 1.7 oz) 09/05/2023 6:20 A M ELECTRIC SCOOP OPERATOR Height 165.1 cm (5' 5 ) 09/05/2023 6:20 AM ELECTRIC SCOOP OPERATOR Body Mass Index 27.81 09/05/2023 6:20 AM ELECTRIC SCOOP OPERATOR Plan of Treatment Health Maintenance Due Date Last Done Comments Pneumococcal vaccine <65 (1 of 2 - PCV) 1999 DTaP/Tdap/Td Vaccine (1 - Tdap) 2004 Varicella Vaccines (1 of 2 - 13+ 2-dose series) 2006 Hepatitis B Screening 2011 Regular Well Visit/Exam 18-64 2011 Cervical Cancer Screening 03/23/2024 03/23/2023 Influenza Vaccine (#1) 2024 08/28/2020 Depression Screening 08/22/2024 08/22/2023, 08/22/2023, 08/22/2023, Additional history exists Hepatitis C Screening Completed 03/23/2023 HPV Vaccines Aged Out No longer eligi ble based on patient's age to complete this topic Procedures Procedure Name Priority Date/Time Associated Diagnosis Comments HEPATITIS C ANTIBODY Routine 03/23/2023 11:20 AM CDT care, subsequent , second trimester 15 weeks gestation of PAP WITH REFLEX TO HIGH RISK HPV Routine 03/23/2023 8:02 AM CDT Screening for malignant neoplasm of cervix from Last 3 Months or Most Recently Relevant to Health Maintenance Results * Hepatitis C antibody (03/23/2023 11:20 AM CDT) Pathologist [facility] Hep C Ab Nonreactive Nonreactive [facility]AR[facility] [...] 0 AM CDT 03/23/2023 5:32 PM CDT us Margareth Herrera DO LAB MICROBIOLOGY - GENE RAL ORDERABLES Edited Result - Final [facility] [id number] [facility] Department of Laboratories [place] [id number] * Pap with reflex to High Risk HPV (03/23/2023 8:02 AM CDT) Thin prep (Pap test) 03/23/2023 8:02 AM CDT 03/23/2023 8:02 AM CDT Narrative PATHOLOGY CH - 03/28/2023 1:21 PM CDT [facility] Department of Pathology [address] [place], [place] [id number] Final Report Note to Patients: This report [...] the details. Patient Name: ??HANNAH PYLE Address: ??[address] [place] [address], ?? [place], [place] [address] Gender: ??F : ??1995 (Age: 27) Service: ?? Location: ?? Hospital #: ??[id number] Patient Type: ?? SPECIMEN Taken: ??03/23/2023 Received: ??03/23/2023 Accessioned:: ??03/24/2023 Reported: ??03/28/2023 Physician(s): Margareth Herrera D.O. Margareth Herrera D.O. Diagnosis: SOURCE OF SPECIMEN ? Imaged Thinprep Pap Test w/ Reflex HPV - Bindery Production Manager Cytologic Material: STATEMENT OF ADEQUACY ?- Specimen satisfactory for interpretation; endocervical/transformation zone component absent or ?insufficient ? GENERAL CATEGORIZATION: ?- Negative for intraepithelial lesion or malignancy ? INTERPRETATION: ?- Numerous inflammatory cells present ? DISHA Faulkner(ASCP) Report Electronically Reviewed and Signed Out By ??DISHA Faulkner(ASCP) ??03/28/2023 13:21:27Specimen(s) Received: A: Imaged Thinprep Pap Test w/ Reflex HPV - Bindery Production Manager Cytologic Material Clinical History: Last Menstrual Period: [...] determined by the Surgical Pathology Department at [facility] as part of an ongoing quality control technician program and in compliance with federally mandated [...] characteristics determined by the Surgical Pathology Department [facility]. ??It has not been cleared or approved by the U. S. Food and Drug Administration. us Margareth Herrera DO LAB CYTOLOGY ORDERABLES Final Result PATHOLOGY [address] [place] [address] from Last 3 Months or Most Recently Relevant to Health Maintenance [place] Care Teams Route Service Manager Relationship Specialty Start Date End Date No, Physician PCP - General 03/09/23 Margareth Herrera DO [address] [place] [address] Consulting Physician Obstetrics and Gynecology 09/05/23
--- OUTSIDE RECORDS SUMMARY | 2024-10-15 15:44 | XMS_ITS | Encounter Summary ---
Author Organization [facility] Healthcare Address [address] [place] [id number] Care Team Providers Care Manager Financial Name Role Phone No, Physician Primary Care Provider [phone] Reason for Visit * Reason Onset Date Comments No show Ret OB appointment 08/31/2023 Encounter Details Date Type Department Care Team (Late st Contact Info) Description 08/31/2023 Telephone [facility] [address] [place] [id number] Margareth Herrera, DO [address] [place] [address] No show Ret OB appointment Social History Tobacco Use Types Packs/Day Years [...] often do you attend chur ch or christian services? More than 4 times per year [...] staff should administer the PHQ-9) 0 09/01/2023 [facility] - Occupational Stress Questionnaire Answer Date Recorded [...] place to sleep or slept in a long term (including now)? No 09/01/2023 Comments Yes Sex [...] encounter Miscellaneous Notes * Telephone Encounter - La Cabrera - 08/31/2023 3:48 PM CDT Attempted to call pt again to be seen in office * Telephone Encounter - La Cabrera - 08/31/2023 9:46 AM CDT Pt no showed RET OB appointment on 08-30-23. LMOM for pt to reschedule per Dr. Herrera. Pt needs to beseen before end of the week to proceed with induction and BL [place] next week. Attempted to contact pt again on 08-31-23 and left another voicemail stating that it is important for pt to call back and reschedule or we can not proceed with induction and surgery. documented in this encounter Plan of Treatment Not on file documented as of this encounter Visit Diagnoses Not on filedocumented in this encounter Care Teams Manager Financial Relationship Specialty Start Date End Date No, Physician PCP - General 03/09/23 documented as of this encounter
--- OUTSIDE RECORDS SUMMARY | 2024-10-15 15:44 | XMS_ITS | Encounter Summary ---
Author Organization [facility] Healthcare Address [address] [place] [address] Care Team Providers Care Slime Plant Operator Name Role Phone No, Physician Primary Care Provider [phone] Reason for Visit * Reason Comments Contractions Encounter Details Date Type Department Care Team (Late st Contact Info) Description 09/02/2023 11:18 AM CDT - 09/02/2023 12:58 PM CDT Hospital Encounter [facility] [address] [place] [address] Margareth Herrera, DO [address] [place] [address] Discharge Disposition: Discharge to home or self [...] often do you attend chur ch or protestant services? More than 4 times per year 09/01/2023 Do you belong to any clubs o r organizations such as gnosticism groups, unions, fraternal or athletic groups, or [...] [facility] Occup[facility] - Occupational Stress Questionnaire Answer Date Recorded [...] place to sleep or slept in a alf (including now)? No 09/01/2023 Comments Yes Sex [...] Sign Reading Time Taken Comments Blood Pressure 118/78 09/02/2023 11:30 AM CDT Pulse 85 09/02/2023 11:30 AM CDT Temperature 36.8 ??C (98.2 ??F) 09/02/2023 12:30 PM C DT Respiratory Rate 18 09/02/2023 11:35 AM CDT Oxygen Saturation - - Inhaled Oxygen Concentration - - Weight 79.8 kg (176 lb) 09/02/2023 11:35 AM CDT Height 165.1 cm (5' 5 ) 09/02/2023 11:35 AM CDT Body Mass Index 29.29 09/02/2023 11:35 AM CDT documented in this encounter Discharge Instructions * Discharge Instructions* Korin Monroy RN - 09/02/2023 12:53 PM CDT Return to [facility] Monday09/04/23 at 0600 for induction of labor. * Attachments The following attachments cannot be sent through Care Everywhere. * at 35 to 38 Weeks (Discharge Care) (Portuguese) documented in this encounter Medications at Time of Discharge nitrofurantoin monohydrate (MACROBID) 100 mg capsule Take 1 capsule (100 mg total) by mouth 2 (two) times a day for 7 days 14 capsule 09/02/2023 09/04/2023 documented as of this encounter Ordered Prescriptions Prescription Sig Dispense Quantity Refills Last Filled Start Date End Date nitrofurantoin monohydrate (MACROBID) 100 mg capsule Take 1 capsule (100 mg total) by mouth 2 (two) times a day for 7 days 14 capsule 09/02/2023 3 documented in this encounter Discharge Disposition Disposition Code Departure Means Destination Discharge to home or self care documented in this encounter Nursing Notes * Korin Monroy RN - 09/02/2023 12:58 PM CDT This pt ambulated to unit with c/o of ctx and lower back pain. Logan RN placed pt on EFM, sent UA, and obtained SVE which was unchanged from previous SVE at [place] of /-2. This RN took over pt care and obtained SVE which was unchanged. 2 ctx noted that palpated mild with irritability. Pt states she was having more ctx en route, but once she arrived here they have almost subsided. Pt denies any lower abdominal pain or previous incisional pain, but reports back pain. Reactive tracing noted. Dr Moreira updated on maternal/ status; orders to d/c pt home with script for Macrobid. Follow up and D/C instructions review with pt, no questions or concerns at this time. Ambulates out of L&D with no apparent distress. Pt to be induced this Monday at [address] Herrera. Korin Monroy RN documented in this encounter Plan of Treatment Not on file documented as of this encounter Procedures Procedure Name Priority Date/Time Associated Diagnosis Comments URINALYSIS AND REFLEX TO MICROSCOPIC AND CULTURE STAT 09/02/2023 11:34 AM CDT URINALYSIS, MICROSCOPIC ONLY STAT 09/02/2023 11:34 AM CDT documented in this encounter Results * (ABNORMAL) Urinalysis, microscopic only (09/02/2023 11:34 AM CDT) WBC, ur 6-10(A) 0 - 5 /HPF [facility] ([facility]) RBC, ur 0-2 0 - 2 /HPF [facility] ([facility]) Epithelial cells, squamous, ur 1-5 0 - 5 /HPF [facility] ([facility]) Mucous, ur Present(A) [facility] ([facility]) Culture Reflex Comment Reflex conditions for urine culture (WBC >10) not met. [facility] ([facility]) Urine, clean voided 09/02/2023 11:34 AM CDT 09/02/2023 11:39 AM CDT us Margareth Anna Javier DO LAB URINE ORDERABLES Fi nal Result [facility] ([facility]) [address] [facility] Department [place] [address] * (ABNORMAL) Urinalysis reflex to microscopic and culture Urine, clean voided (09/02/2023 11:34 AM CDT) Color, ur Yellow Yellow [facility] ([facility]) Clarity, ur Clear Clear [facility] ([facility]) Specific gravity, ur 1.020 1.003 - 1.030 [facility] ([facility]) pH, urine 7.0 [facility] ([facility]) Comment: Interpretive Data ? Urine pH is affected by diet, medications, systemic acid-base disturbances, and renal tubular function. ??pH may affect urinary stone formation. ??For example, urine pH below 6.0 may help reduce the tendency for calcium phosphate stones and pH greater than 6.0 may reduce the tendency for uric acid stone formation. Source: [facility] Nutrino Current Interpretive Data was last revised on 2017 Protein, ur ql Negative Negative [facility] ([facility]) Glucose, ur ql Negative Negative [facility] ([facility]) Ketones, ur Negative Negative [facility] ([facility]) Bilirubin, ur Negative Negative [facility] ([facility]) Blood, ur Negative Negative [facility] ([facility]) Urobilinogen, ur <2.0 <2.0 mg/dL [facility] ([facility]) Nitrite, ur Negative Negative [facility] ([facility]) Leukocyte esterase, ur 4+(A) Negative [facility] ([facility]) UA reflex comment Reflex to microscopic UA will be performed. [facility] ([facility]) Urine, clean voided 09/02/2023 11:34 AM CDT 09/02/2023 11:39 AM CDT us Margareth Herrera DO LAB MICROBIOLOGY - GENE RAL ORDERABLES Final Result [facility] ([place]) [address] [facility] [place] [address] documented in this encounter Visit Diagnoses Not on filedocumented in this encounter Orders Discharge Count Last Ordered Date First Orde red Date DISCHARGE PATIENT 1 09/02/2023 documented in this encounter Care Teams Slime Plant Operator Relationship Specialty Start Date End Date No, Physician PCP - General 03/09/23 documented as of this encounter
--- OUTSIDE RECORDS SUMMARY | 2024-10-15 15:44 | XMS_ITS | Encounter Summary ---
Author Organization [facility] Healthcare Address [address] [place] [id number] Care Team Providers Care Micro Computer Specialist Name Role Phone No, Physician Primary Care Provider [phone] Reason for Referral * Diagnostic Imaging (Routine) - Closed Specialty Diagnoses / Procedures Referred By Contjasmyn t Referred To Contact Diagnoses Malposition of fetus, single or unspecified fetus Procedures US Ob Limited Margareth Herrera DO [address] [place] [address] Phone: tel: fax: [facility] Referral ID Status Reason Start Date Expiration Date Visits Re quested Visits Authorized [id number] Closed 08/02/2023 08/31/2024 1 1 Encounter Details Date Type Department Care Team (Late st Contact Info) Description 08/02/2023 Orders Only [facility] [address] [place] [id number] Margareth Herrera DO [address] [place] [id number] Malposition of fetus, single or unspecified fetus (Primary Dx) Social History Tobacco Use Types [...] place to sleep or slept in a assisted (including now)? No 04/14/2023 Comments Yes Sex [...] on file documented as of this encounter Results * US Ob Limited (08/02/2023 11:52 AM CDT) Anatomical Region Laterality Modality Abdomen N/A Ultrasound Narrative 08/02/2023 12:55 PM CDT OB ULTRASOUND LIMITED: B-MODE AND COLOR DOPPLER SONOGRAPHY OF THE GRAVID UTERUS WAS PERFORMED AND SELECT IMAGES WERE SUBMITTED FOR REVIEW. ?? THERE IS A SINGLE VIABLE INTRAUTERINE IN VERTEX POSITION. ?? HEART RATE IS 139 BEATS PER MINUTE. ??THE PLACENTA IS POSTERIOR. ??THERE IS MOTION. ??AMNIOTIC FLUID IS SUBJECTIVELY NORMAL. us Margareth Herrera DO IMG OB US PROCEDURES Fi nal Result documented in this encounter Visit Diagnoses Diagnosis Malposition of fetus, single or unspecified fetus- Primary Malposition of fetus, single or unspecified fetus documented in this encounter Care Teams Micro Computer Specialist Relationship Specialty Start Date End Date No, Physician PCP - General 03/09/23 documented as of this encounter
--- OUTSIDE RECORDS SUMMARY | 2024-10-15 15:44 | XMS_ITS | Encounter Summary ---
Author Organization [facility] Healthcare Address [address] [place] [address] Care Team Providers Care Barrel Straightener Name Role Phone No, Physician Primary Care Provider [phone] Margareth Herrear DO Unavailable [phone] Reason for Visit * Auth/Cert (Routine) Specialty Diagnoses / Procedures Referred By Lenora t Referred To Contact Diagnoses Request for sterilization Request for sterilization [Z30.2] Procedures WI LIG/TRNSXJ FLP TUBE ABDL/VAG SPX SALPINGECTOMY Referral ID Status Reason Start Date Expiration Date Visits Re quested Visits Authorized [id number] 1 1 Encounter Details Date Type Department Care Team (Late st Contact Info) Description 09/05/2023 6:01 AM ESTHETICIAN MAKEUP ARTIST - 09/05/2023 10:43 AM ESTHETICIAN MAKEUP ARTIST Hospital Encounter [facility] Operating Room [address] [place] [address] Margarteh Herrera DO [address] [address] Request for sterilization Discharge Disposition: Discharge to home or self [...] often do you attend chur ch or samaritan services? More than 4 times per year 09/01/2023 Do you belong to any clubs o r organizations such as mormon groups, unions, fraternal or athletic groups, or [...] staff should administer the PHQ-9) 0 09/01/2023 [facility] - Occupational Stress Questionnaire Answer [...] place to sleep or slept in a fpc (including now)? No 09/01/2023 Personal Safety Answer Date Recorded Have you ever been in or are you currently in a harmful physical or emotional relationship or is someone making you feel afraid or unsafe? Denies 09/05/2023 Comments Yes Sex and Gender Information Value [...] Comments Blood Pressure 118/73 09/05/2023 10:07 AM ESTHETICIAN MAKEUP ARTIST Pulse 62 09/05/2023 10:07 AM ESTHETICIAN MAKEUP ARTIST Temperature 36.2 ??C (97.1 ??F) 09/05/2023 10:[address] Respiratory Rate 18 09/05/2023 10:07 AM ESTHETICIAN MAKEUP ARTIST Oxygen Saturation 99% 09/05/2023 10:07 AM ESTHETICIAN MAKEUP ARTIST Inhaled Oxygen Concentration - - Weight 75.8 kg (167 lb 1.7 oz) 09/05/2023 6:20 A M ESTHETICIAN MAKEUP ARTIST Height 165.1 cm (5' 5 ) 09/05/2023 6:20 AM ESTHETICIAN MAKEUP ARTIST Body Mass Index 27.81 09/05/2023 6:20 AM ESTHETICIAN MAKEUP ARTIST documented in this encounter Discharge Instructions * Attachments The following attachments cannot be sent through Care Everywhere. * General Anesthesia (Discharge Care) (Luxembourger) documented in this encounter Medications at Time of Discharge HYDROcodone-aceta minophen (NORCO) 5-325 mg per tabletIndications :Pain Take 1 tablet by mouth every 6 (six) hours as needed for pain oxyCODONE-acetami nophen (PERCOCET) 5-325 mg per tabletIndications :Pain Take 1 tablet by mouth every 4 (four) hours as needed for pain 12 tablet 09/05/2023 documented as of this encounter Ordered Prescriptions Prescription Sig Dispense Quantity Refills Last Filled Start Date End Date oxyCODONE-acetamino phen (PERCOCET) 5-325 mg per tabletIndications:P ain Take 1 tablet by mouth every 4 (four) hours as needed for pain 12 tablet 09/05/2023 documented in this encounter Discharge Disposition Disposition Code Departure Means Destination Comment s Discharge to home or self care documented in this encounter H&P Notes * Margareth Herrera Anna, DO - 09/05/2023 7:45 AM CST Gynecology H&P SUBJECTIVE HPI: Hannah Pyle is a 28 y.o. female who presents for desire for sterilization. She was originally scheduled for induction at [facility] yesterday with a plan for PP BS today but ended up delivering [facility] Monday night. Delivery was uncomplicated. She SROM'd at home and was complete on arrival. Problem List Unprioritized Encounter for supervision of normal in second trimester History of History of premature rupture of membranes (PPROM) HSV (herpes simplex virus) anogenital infection Marijuana use Maternal varicella, non-immune * (Principal) Request for sterilization OB History Para Term AB Living 6 4 3 1 1 4 SAB IAB Ectopic Multiple Live Births 1 4 # Outcome Date GA Lbr Bull/2nd Weight Sex Delivery Anes PTL Lv 6 Current 5 03/04/21 34w0d / 00:13 2.214 kg (4 lb 14.1 oz) M Vag-Spont EPI Y RICHARD 4 Term 06/14/18 40w0d 2.778 kg (6 lb 2 oz) M CS-Unspec RICHARD Complications: Other (Comment), Breech presentation on examination 3 Term 02/19/16 40w0d 2.977 kg (6 lb 9 oz) M Vag-Spont RICHARD 2 Term 03/19/13 40w0d 3.6 kg (7 lb 15 oz) M Vag-Spont RICHARD 1 SAB 10/2008 History reviewed. No pertinent past medical history. Past Surgical History: Procedure Laterality Date SECTION Social History Tobacco Use Smoking status: Every Day Types: Vaping Smokeless tobacco: Never Substance and Sexual Activity Drug use: Not Currently Types: Marijuana Sexual activity: Yes Partners: Male control/protection: None Alcohol Use: Not At Risk (09/05/2023) AUDIT-C Frequency of Alcohol Consumption: Never Average Number of Drinks: Patient does not drink Frequency of Binge Drinking: Never History reviewed. No pertinent family history. Allergies Allergen Reactions Amoxicillin Rash Medications Prior to Admission Medication Sig Dispense Refill Last Dose HYDROcodone-acetaminophen (NORCO) 5-325 mg per tablet Take 1 tablet by mouth every 6 (six) hours asneeded for pain 09/05/2023 at 0530 Review of Systems Constitutional: negative for fevers Gastrointestinal: negative for nausea Genitourinary: negative for urinary complaints Neurological: negative for headaches ALL OTHER SYSTEMS NEGATIVE OBJECTIVE Vitals: Arrival Vitals [09/05/23 0620] Temp 36.2 ??C (97.1 ??F) Pulse 66 Resp 18 BP 136/70 SpO2 98 % Temp src Temporal Heart Rate Source Monitor Patient Position BP Location FiO2 (%) Physical Exam General: appears stated age and cooperative Lungs: non-labored Abdomen: soft, non-tender, fundus palpable below umbilicus Extremities: extremities normal, warm and well-perfused Neurologic: alert and oriented x4, non-focal no lesions, no masses, no tenderness ASSESSMENT / PLAN Hannah Pyle is a 28 y.o. female, being admitted for desire for sterilization Plan to proceed with bilateral salpingectomy. Discussed nature of the procedure, anticipated recovery, and surgical risks including anesthesia, infection, bleeding, possible blood transfusion, injuryto adjacent organs including bowel, bladder, nerves, and blood vessels, blood clots, and even . Margareth Herrera DO 09/05/23 ETICIAN MAKEUP ARTIST documented in this encounter Miscellaneous Notes * Perioperative Nursing Note - Sherita Conley RN - 09/05/2023 10:08 AM ESTHETICIAN MAKEUP ARTIST Pt ambulatory with no difficulty to the restroom, was able to void prior to discharge, small amountof drainage seen on elena pad. ETICIAN MAKEUP ARTIST * Perioperative Nursing Note - Sherita Conley RN - 09/05/2023 9:38 AM ESTHETICIAN MAKEUP ARTIST Pt having pain of 05/08, Dr. Herrera made aware, order for percocet placed. ETICIAN MAKEUP ARTIST * Op Note - Margareth Herrera DO - 09/05/2023 8:06 AM CST Operative Note Attending Surgeon: Margareth Herrera DO Surgical Team: Surgeon(s) and Role: * Margareth Herrera DO - Primary DATE OF SURGERY : 09/05/2023 Preoperative Diagnosis: Pre-op Diagnosis * Request for sterilization [Z30.2] Postoperative Diagnosis: Post-op Diagnosis * Request for sterilization [Z30.2] Name of Operation: Procedure(s): SALPINGECTOMY Indication for Procedure: This is a 28 y.o. who presented with request for sterilization. She was originally scheduled for induction at [facility] yesterday with a plan for PP BS today but ended up delivering at [facility] Monday night. Delivery was uncomplicated. She SROM'd at home and was complete on arrival. Operative Findings: Normal appearing bilateral fallopian tubes and ovaries. Uterus midline about 3 cm below umbilicus. Description Of Procedure After obtaining the appropriate operative consents, the patient was taken to the operating room, where she was given general anesthesia which was found to be adequate. The patient was placed in supine position and prepared and draped in the normal sterile fashion. A time out was held. A horizontal incision (mini laparotomy) was made underneath the umbilicus and carried down through the subcutaneous tissue. The fascia was grasped with two kochers, tented up, and incised with Metzenbaum scissors. This incision was extended bluntly and the peritoneum entered. The fascial incision was extended laterally with Olivas scissors. The left fallopian tube was then hooked and brought up through the incision. It was grasped with backock clamps and dissected off of the ovary using the handheld Ligasure. Dissection was continued towards the cornual region and the fallopian tube was then transected and removed completely. Hemostasis was assured. The process was repeated on the right side and hemostasis was again assured. The fascia was closed with Vicryl suture. The subcutaneous tissue was reapproximated with Plain gut. The skin was closed with 4-0 Monocryl and skin glue. The patient tolerated the procedure well and the patient was taken to the recovery room in stable condition. Estimated Blood Loss: 10 cc Specimens: ID Type Source Tests Collected by Time A : bilateral fallopian tubes Tissue Fallopian tube, sterilization SURGICAL PATHOLOGY Margareth Herrera DO 09/05/2023 0803 Complications: None Sponge/Instrument/Needle Counts: The sponge, lap and needle counts were correct x 2. Condition on Discharge from the operating room was stable Margareth Herrera DO Date: 09/05/2023 Time: 8:36 AM The Attending, Margareth Herrera DO, was present for the entire procedure. ETICIAN MAKEUP ARTIST * Pre-Procedure Instructions - Ashli De Dios RN - 09/04/2023 2:19 PM ESTHETICIAN MAKEUP ARTIST We are pleased that you and your doctor have chosen [facility] for your surgery. We hope that the following information will help make your visit a pleasant one. Surgery Date: 09/05/2023 Before your surgery: Notify your doctor of ANY change in your health such as a cold, sore throat, fever, any infection or a change in the problem for which you are having your surgery. Follow any instructions given to you by your doctor or surgeon. Check with your doctor if you need to STOP taking: Aspirin (ordered by your doctor) Plavix Coumadin One week before surgery STOP taking: All herbal supplements Aspirin (not ordered by your doctor) Aleve, Advil, Motrin, Ibuprofen, or other similar medications (Tylenol is okay). 24 hours before your surgery: No smoking or alcoholic drinks. Night before your surgery: Do not eat or drink anything after midnight. Follow surgeon's instructions for anti-bacterial shower night before and morning of surgery. Day of surgery: Do not swallow any water when you brush your teeth. ONLY take these pills with a tiny sip of water. Pre-Surgery Instructions: Medication Instructions HYDROcodone-acetaminophen (NORCO) 5-325 mg per tablet Take morning of surgery Use no make-up, nail sinhala, lotions, oils or powders on your skin. Wear comfortable clothes that will not be tight in the area of your surgery. Leave all valuables and jewelry (including all body piercing jewelry) at home. Please bring your a photo ID and insurance cards with you. After your Outpatient Surgery: You must have a responsible adult to drive you home, you will not be allowed to drive or take a cabhome. We recommend you have someone stay with you for 24 hours after your surgery. What to bring if you are spending the night with us: Bring toiletry items such as: robe, slippers, toothbrush, toothpaste, brush or comb. Bring contact lens, hearing aids, glass cases and denture container if you use any of these items. The hospital will provide you with a gown. Questions or concerns: If you have any questions or concerns regarding your procedure, contact your surgeon as soon as possible. If you have questions regarding your Pre-Admission Testing, please call us. We can be reached at the number posted at the top of the page. ETICIAN MAKEUP ARTIST documented in this encounter Plan of Treatment Not on file documented as of this encounter Procedures Procedure Name Priority Date/Time Associated Diagnosis Comments SURGICAL PATHOLOGY Routine 09/05/2023 9: 49 AM ESTHETICIAN MAKEUP ARTIST Request for sterilization SALPINGECTOMY 09/05/2023 7:46 AM ESTHETICIAN MAKEUP ARTIST Request for sterilization DIFFERENTIAL AUTO STAT 09/05/2023 6:3 9 AM ESTHETICIAN MAKEUP ARTIST CBC WITH AUTO DIFFERENTIAL STAT 09/05/2023 6:39 AM ESTHETICIAN MAKEUP ARTIST documented in this encounter Results * Surgical pathology (09/05/2023 9:49 AM ESTHETICIAN MAKEUP ARTIST) Tissue (Fallopian tube, sterilization) 09/05/2023 8:03 AM ESTHETICIAN MAKEUP ARTIST Narrative [facility]OLOGY [facility] - 09/06/2023 10:35 AM ESTHETICIAN MAKEUP ARTIST EPIC results best viewed via link to PDF [facility] Department of Pathology [address] [place], [place] [id number] Note to Patients: This report may contain [...] can answer questions and explain the details. Final Report Patient Name: ??HANNAH PYLE Address: ??[facility] [address], ??[place], [place] ?? Gender: ??F : ??1995 (Age: 28) Service: ??Surgery Location: ??[facility] Hospital #: ??[id number] Patient Type: ??[facility] Accession # ?[id number] Taken: ??09/05/2023 Received: ??09/05/2023 Accessioned: ??09/05/2023 Reported: ??09/06/2023 Physician(s):Margareth Herrera D.O. Diagnosis: Bilateral fallopian tubes, bilateral salpingectomy: ? - Benign fallopian tubes seen in full cross-section. Trent Nuno M.D. Report Electronically Reviewed and Signed Out By ??Trent Nuno M.D. ??09/06/2023 10:35:40 Specimen(s) Received: A: bilateral fallopian tubes Microscopic Description: Sections show benign fallopian tubes seen in full cross-section. Clinical History: Request for sterilization Salpingectomy Gross Description: The specimen is submitted in a single formalin container labeled HANNAH PYLE and bilateral tubes . ??It consists of two segments of apparent fallopian tube measuring 5.0 and 6.5 cm in length by up to 0.9 cm in diameter. ??The fimbriated ends are present. ??The serosal surfaces are smooth and shiny and serial cross sections reveal no discrete gross abnormalities. ??Cross sections of each are submitted: shorter in block 1; longer in block 2. Bronwyn Contreras R.N., P.A./Trent Nuno M.D. REPORT IMAGES AND SCANNED DOCUMENTS, IF INCLUDED, ONLY VIEWABLE IN PDF VERSION OF REPORT The performance characteristics of some immunohistochemical stains, fluorescence in-situ hybridization tests and immunophenotyping by flow cytometry cited in this report (if any) were determined by the Surgical Pathology Department at [facility] as part of an ongoing quality eng program and in compliance with federally mandated [...] characteristics determined by the Surgical Pathology Department [facility]. ??It has not been cleared or approved by the U. S. Food and Drug Administration. Note for decalcified specimens: This assay has not been validated on decalcified tissues. Results should be interpreted with caution given the possibility of false negativity on decalcified specimens Margareth Herrera DO LAB PATHOLOGY ORDERABLE S Final Result PATHOLOGY [facility] ([place]) [address] [place] [address] * Differential, auto (09/05/2023 6:39 AM ESTHETICIAN MAKEUP ARTIST) Neutrophil abs 4.4 1.7 - 6.5 K/cumm [facility] ([place]) Imm gran abs 0.0 0.0 - 0.1 K/cumm [facility]) Lymphocyte abs 2.3 0.8 - 3.3 K/cumm [facility] ([place]) Monocyte abs 0.7 0.2 - 0.8 K/cumm [facility] ([place]) Eosinophil abs 0.2 0.0 - 0.5 K/cumm [facility] ([place]) Basophil abs 0.0 0.0 - 0.1 K/cumm [facility] ([place]) Neutrophil pct 57.7 % [facility] ([place]) Comment: Interpretive Data Percent cell count reference ranges are not reported, since discordance with absolute values may lead to misinterpretation of CBC data. Current Interpretive Data was last revised on 2018. Imm gran pct 0.3 % [facility] ([place]) Comment: Interpretive Data Percent cell count reference ranges are not reported, since discordance with absolute values may lead to misinterpretation of CBC data. Current Interpretive Data was last revised on 2018. Lymphocyte pct 29.7 % [facility] ([place] Comment: Interpretive Data Percent cell count reference ranges are not reported, since discordance with absolute values may lead to misinterpretation of CBC data. Current Interpretive Data was last revised on 2018. Monocyte pct 9.3 % [facility] ([place] Comment: Interpretive Data Percent cell count reference ranges are not reported, since discordance with absolute values may lead to misinterpretation of CBC data. Current Interpretive Data was last revised on 2018. Eosinophil pct 2.5 % [facility] ([place] Comment: Interpretive Data Percent cell count reference ranges are not reported, since discordance with absolute values may lead to misinterpretation of CBC data. Current Interpretive Data was last revised on 2018. Basophil pct 0.5 % [facility] ([place] Comment: Interpretive Data Percent cell count reference ranges are not reported, since discordance with absolute values may lead to misinterpretation of CBC data. Current Interpretive Data was last revised on 2018. Blood 09/05/2023 6:39 AM ESTHETICIAN MAKEUP ARTIST 09/05/2023 6:43 AM ESTHETICIAN MAKEUP ARTIST us Margareth Herrera DO LAB BLOOD ORDERABLES Fi nal Result [facility] ([place]) 1 [facility] Department [place] [address] * (ABNORMAL) CBC with auto differential (09/05/2023 6:39 AM ESTHETICIAN MAKEUP ARTIST) WBC 7.6 3.8 - 9.9 K/cumm [facility]) Hgb 10.0(L) 11.9 - 15.5 g/dL [facility] ([place] Comment: Interpretive Data A reference range for this assay has not been established for patients with an unknown legal sex. Please refer to the laboratory test catalog for established sex-specific reference intervals. Current interpretive data was last revised on 2023. Hct 31.3(L) 35.6 - 45.5 % [facility] ([place] Comment: Interpretive Data A reference range for this assay has not been established for patients with an unknown legal sex. Please refer to the laboratory test catalog for established sex-specific reference intervals. Current interpretive data was last revised on 2023. Plt 248 150 - 400 K/cumm [facility] ([facility]) MPV 9.6 9.1 - 12.3 fL [facility]) RBC 3.83(L) 3.90 - 5.20 M/cumm [facility] ([place]) Comment: Interpretive Data A reference range for this assay has not been established for patients with an unknown legal sex. Please refer to the laboratory test catalog for established sex-specific reference intervals. Current interpretive data was last revised on 2023. MCV 81.7 81.3 - 96.4 fL [facility] ([facility]) MCH 26.1(L) 27.1 - 33.3 pg [facility] ([place]) MCHC 31.9(L) 32.3 - 35.7 g/dL [facility] ([place]) RDW CV 13.7 11.1 - 14.9 % [facility] RDW SD 40.2 35.7 - 48.1 fL [facility]) NRBC abs 0.00 0.00 - 0.01 K/cumm [facility] ([place]) Blood 09/05/2023 6:39 AM ESTHETICIAN MAKEUP ARTIST 09/05/2023 6:43 AM ESTHETICIAN MAKEUP ARTIST us Margareth Herrera DO LAB BLOOD ORDERABLES Fi nal Result [facility] ([place]) 1 [facility] Department [place] [address] documented in this encounter Visit Diagnoses Diagnosis Request for sterilization- Primary documented in this encounter Admitting Diagnoses Diagnosis Request for sterilization documented in this encounter Administered Medications Inactive Administered Medications - up to 3 most recent administrations Medication Order MAR Action Action Date Dose Rate Site fentaNYL (SUBLIMAZE) preservative free injection 50 mcg 50 mcg, intravenous, Every 10 min PRN, 1st line for pain, Starting on Mon09/05/23 at 0906, Phase I, Notify Anesthesiologist if total PACU dose reaches 100 mcg and pain score 5/10 or more., Indications: PainIndications:Pain Given 09/05/2023 9:21 AM ESTHETICIAN MAKEUP ARTIST 50 mcg Given 09/05/2023 9:09 AM ESTHETICIAN MAKEUP ARTIST 50 mcg Lactated Ringer's (LR) infusion 30 mL/hr, intravenous, Continuous, Starting on Mon09/05/23 at 0645, Pre-Op New Bag 09/05/2023 7:46 AM ESTHETICIAN MAKEUP ARTIST oxyCODONE-acetaminophen (PERCOCET) 5-325 mg per tablet 1 tablet 1 tablet, oral, Once, On Mon09/05/23 at 1015, For 1 dose, Indications: PainIndications:Pain Given 09/05/2023 9:52 AM ESTHETICIAN MAKEUP ARTIST 1 tablet documented in this encounter Discontinued Medications Medication Sig Discontinue Reason Start Date End Da te nitrofurantoin monohydrate (MACROBID) 100 mg capsule Take 1 capsule (100 mg total) by mouth 2 (two) times a day for 7 days Therapy completed 09/02/2023 09/04/2023 documented as of this encounter Historical Medications * This list may reflect changes made after this encounter. HYDROcodone-aceta minophen (NORCO) 5-325 mg per tabletIndications :Pain Take 1 tablet by mouth every 6 (six) hours as needed for pain added in this encounter Active and Recently Administered Medications Due to Daylight Saving Time, this section may contain times in both CDT and ESTHETICIAN MAKEUP ARTIST. Scheduled Medication Order 09/03/2023 09/04/2023 09/05/2023 ceFAZolin (ANCEF) 1 gram/10 mL in sterile water (premix) 2,000 mg 2,000 mg, intravenous, at 400 mL/hr, Administer over 3 Minutes, Once, On Mon09/05/23 at 1000, For 1 dose, Pre-Op, Administer within 60 minutes of incision., Indications: Prophylaxis, Surgical 1000 (Due) oxyCODONE-acetaminophen (PERCOCET) 5-325 mg per tablet 1 tablet (COMPLETED) 1 tablet, oral, Once, On Mon09/05/23 at 1015, For 1 dose, Indications: Pain 0952 (Given - Provid er: Sherita Conley RN) Continuous Medication Order 09/03/2023 09/04/2023 09/05/2023 Lactated Ringer's (LR) infusion 30 mL/hr, intravenous, Continuous, Starting on Mon09/05/23 at 0645, Pre-Op 0746 (New Bag - Prov ider: Larry Parsons CRNA)1443 (Due: Stopped) PRN Medication Order 09/03/2023 09/04/2023 09/05/2023 BUPivacaine-EPINEPHrine (MARCAINE with EPI) 0.5 %-1:200,000 preservative free injection (CANCELED) As needed, Starting on Mon09/05/23 at 0829, Intra-Op 0838 (Given - Provid er: Hannah Savage, GUEST EXPERIENCE SPECIALIST) fentaNYL (SUBLIMAZE) preservative free injection 50 mcg (CANCELED) 50 mcg, intravenous, Every 10 min PRN, 1st line for pain, Starting on Mon09/05/23 at 0906, Phase I, Notify Anesthesiologist if total PACU dose reaches 100 mcg and pain score 5/10 or more., Indications: Pain 0909 (Given - Provid er: Cindy Bryson RN)0921 (Given - Provider: Cindy Bryson RN) sodium chloride 0.9% irrigation (CANCELED) As needed, Starting on Mon09/05/23 at 0820, Intra-Op 0820 (Given - Provid er: Margareth Herrera, - Comment: On sterile field for irrigation) documented in this encounter Orders Medications Ordered That Everette ht Not Have Been Administered Count Last Ordered Date First Ordered Date acetaminophen (TYLENOL) tablet 1,000 mg 1 1 11/05/2022 BUPivacaine-EPINEPHrine (MAR SARAH with EPI) 0.5 %-1:200,000 preservative free injection 1 09/05/2023 Carrier Fluids for Secondary Infusion - 0.9% Sodium Chloride 1 09/05/2023 ceFAZolin (ANCEF) 1 gram/10 mL in sterile water (premix) 2,000 mg 2 09/05/2023 Lactated Ringer's (LR) infusion 1 3 midazolam (VERSED) 2 mg/2 mL preservative free injection - ADS Override Pull 1 09/05/2023 naloxone (NARCAN) 0.4 mg/mL injection 0.04-0.4 mg 1 09/05/2023 ondansetron (ZOFRAN) injection 4 mg 1 09/05 sodium chloride 0.9% flush 0.5-20 mL 1 04/2023 sodium chloride 0.9% irrigation 1 Diet Count Last Ordered Date First Orde red Date ADULT DISCHARGE DIET 1 09/05/2023 Nursing Count Last Ordered Date First Orde red Date DISCHARGE ACTIVITY 4 09/05/2023 DISCHARGE CALL PROVIDER 3 09/05/2023 DISCHARGE DRESSING 2 09/05/2023 DISCHARGE INSTRUCTIONS 1 09/05/2023 FOLLOW UP WITH ESTABLISHED PROVIDER 1 09/05 Admission Count Last Ordered Date First Orde red Date ADMIT TO INPATIENT 1 09/05/2023 Discharge Count Last Ordered Date First Orde red Date DISCHARGE PATIENT 1 09/05/2023 documented in this encounter Care Teams Barrel Straightener Relationship Specialty Start Date End Date No, Physician PCP - General 03/09/23 Margareth Herrera DO [address] [place] [address] Consulting Physician Obstetrics and Gynecology 09/05/23 documented as of this encounter
--- OUTSIDE RECORDS SUMMARY | 2024-10-15 15:44 | XMS_ITS | Encounter Summary ---
Author Organization [facility] Healthcare Address [address] [place] [address] Care Team Providers Care Quiller Runner Name Role Phone No, Physician Primary Care Provider [phone] Encounter Details Date Type Department Care Team (Late st Contact Info) Description 08/29/2023 Telephone [facility] [facility] [address] [place] [address] Elena Veliz LPN Social History Tobacco Use Types Packs/Day Years [...] 08/22/2023 How often do you attend chur or adventism services? More than 4 times per year 08/22/2023 Do you belong to any clubs o r organizations such as baptism groups, unions, fraternal or athletic groups, or [...] staff should administer the PHQ-9) 0 08/22/2023 [facility] of Occupat [facility] - Occupational Stress Questionnaire Answer Date Recorded [...] place to sleep or slept in a fci (including now)? No 08/22/2023 Comments Yes Sex [...] Telephone Encounter - Elena Veliz LPN - 08/29/2023 1:15 PM CDT Normal GBS wharf tender helper sent. * Telephone Encounter - Elena [place]iz LPN - 08/29/2023 1:15 PM CDT ----- Message from Margareth Herrera DO sent at 08/29/2023 12:42 PM CDT ----- Please inform the patient her GBS was negative. documented in this encounter Plan of Treatment Not on file documented as of this encounter Visit Diagnoses Not on filedocumented in this encounter Care Teams Quiller Runner Relationship Specialty Start Date End Date No, Physician PCP - General 03/09/23 documented as of this encounter
--- OUTSIDE RECORDS SUMMARY | 2024-10-15 15:44 | XMS_ITS | Encounter Summary ---
Author Organization [facility] Healthcare Address [address] [place] [address] Care Team Providers Care Hand Brush Filler Name Role Phone No, Physician Primary Care Provider [phone] Reason for Visit * Diagnostic Imaging (Routine) - Closed Specialty Diagnoses / Procedures Referred By Contac t Referred To Contact Diagnoses Malposition of fetus, single or unspecified fetus Procedures US Ob Limited Margareth Herrera, DO [address] [place] [address] Phone: tel: fax: [place] [facility] Referral ID Status Reason Start Date Expiration Date Visits Re quested Visits Authorized [id number] Closed 08/02/2023 08/31/2024 1 1 Encounter Details Date Type Department Care Team (Latest Contact Info) Description 08/02/2023 11:40 AM CDT Ancillary Procedure [place] [facility] [address] [place] [id number] Malposition of fetus, single or unspecified fetus Social History Tobacco Use Types Packs/Day Years [...] slept in a prison (including now)? No 04/14/2023 Comments Yes Sex [...] Procedure Name Priority Date/Time Associated Diagnosis Comments US OB LIMITED Schedule Routine, Read Routine (OP Routine) 08/02/2023 11:52 AM CDT Malposition of fetus, single or unspecified fetus documented in this encounter Results * US Ob Limited [...] Diagnosis Malposition of fetus, single or unspecified fetus documented in this encounter Care Teams Hand Brush Filler Relationship Specialty Start Date End Date No, Physician PCP - General 03/09/23 documented as of this encounter
--- OUTSIDE RECORDS SUMMARY | 2024-10-15 15:44 | XMS_ITS | Encounter Summary ---
Author Organization [facility] Healthcare Address [address] [place] [address] Care Team Providers Care Pipe Fitter Maintenance Name Role Phone No, Physician Primary Care Provider [phone] Margareth Herrerabeth DO Unavailable [phone] Reason for Visit * Auth/Cert (Routine) Specialty Diagnoses / Procedures Referred By Lenora t Referred To Contact Diagnoses Request for sterilization Request for sterilization [Z30.2] Procedures NV LIG/TRNSXJ FLP TUBE ABDL/VAG SPX SALPINGECTOMY Referral ID Status Reason Start Date Expiration Date Visits Re quested Visits Authorized [id number] 1 1 Encounter Details Date Type Department Care Team (Late st Contact Info) Description 09/05/2023 7:47 AM BARREL ROLLER OPERATOR Anesthesia Event [facility] Operating Room [address] [place] [address] [place] [address] [facility] [place] [address] [place] [address] [id number] Anesthesia Record Procedure Summary Procedure Name Responsible Anesthesiologist Anesthesia Start Time Anesthesia Stop Time SALPINGECTOMY (Bilateral: Abdomen) Norberto Smith MD 09/05/23 0747 09/05/23 0855 Events Date Time Event Comment 09/05/2023 0707 0746 In Room 0747 An Start 0747 An Start Data 0751 An Induction The patient was reevaluated immediately before moderate or deep sedation use and before anesthesia induction. 0752 An Intubation 0756 Anesthesia Ready 0806 Proc Start 0806 Incision Start 0841 Proc Fin 0848 An Extubation 0850 Out of Room 0850 an stop data 0855 Handoff to RN I completed my handoff to the receiving nurse during which we: 1. Patient identified 2. Responsible provider identified 3. Pertinent medical history reviewed 4. Procedure type and surgical course discussed 5. Intraoperative anesthetic management and any significant issues discussed 6. Expectations and concerns for postop period discussed 7. Questions solicited from receiving nurse 8. Patient disposition at the time of handoff: No value filed. 0855 An Stop Meds Name Total midazolam 2 mg fentaNYL 100 mcg propofol 260 mg lidocaine (cardiac) syringe 2 % 100 mg rocuronium 30 mg succinylcholine 160 mg ceFAZolin 2,000 mg ondansetron 4 mg diphenhydrAMINE 25 mg ketorolac 30 mg dexAMETHasone 10 mg/mL 10 mg esmolol 50 mg ketamine 10 mg/mL - 5 mL 30 mg sugammadex 200 mg dexmedeTOMIDine infusion 12 mcg Lactated Ringer's (LR) infusion 0 mL * Agents Name O2 N2O Air Sevoflurane Inspired Sevoflurane * Blood No blood administrations on file. Lines, Drains, and Airways Type Details Placement Removal Peripheral IV Placement Date: 09/05/23; Placement Time: 0636; Catheter Size: 22 G; Orientation: Posterior, Right; Location: Hand; Site Prep: Chlorhexidine; Insertion Attempts: 1; Patient Tolerance: Tolerated well 09/05/23 0636 by Sherita Conley RN ETT Placement Date: 09/05/23; Placement Time: 0800 (created via procedure documentation); Mask Ventilation: 1; Technique: Direct laryngoscopy; Type: ETT - single; Single Lumen Tube Size: 7 mm; Cuffed: Yes; Laryngoscope: Jaclyn; Blade Size: 3; Location: Oral; Grade View: Grade I; Insertion Attempts: 1; Placement Verification: Auscultation, Capnometry; Removal Date: 09/05/23; Removal Time: 0848 09/05/23 0800 by Larry Parsons CRNA 09/05/23 0848 by Larry Parsons CRNA RETIRED Surgical Site 09/05/23; 0828; Bilateral; Abdomen; 10/01/24 (Retired LDA, Removed/Completed by [facility] with LDA Utility); 1213 (Retired LDA, Removed/Completed by [facility] with LDA Utility) 09/05/23 0828 by Ekaterina Hoskins RN 10/01/24 1213 by Discharge Provider, Automatic documented in this encounter Social History Tobacco [...] 09/01/2023 How often do you attend chur or orthodoxy services? More than 4 times per year 09/01/2023 Do you belong to any clubs o r organizations such as mu-ism groups, unions, fraternal or athletic groups, or [...] staff should administer the PHQ-9) 0 09/01/2023 [facility] of Occupat ional Health - Occupational Stress [...] place to sleep or slept in a usp (including now)? No 09/01/2023 Personal Safety Answer [...] on file documented as of this encounter OR Notes * Anesthesia Postprocedure Evaluation - Norberto Smith MD - 09/05/2023 2:50 PM CST Patient: Hannah Luis Procedure Summary Date: 09/05/23 Room / Location: [facility] OR [address] [place] [address] OPERATING ROOM Anesthesia Start: 746 Anesthesia Stop: 854 Procedure: SALPINGECTOMY (Bilateral: Abdomen) Diagnosis: Request for sterilization (Request for sterilization [Z30.2]) Providers: Margareth Herrera DO Responsible Provider: Norberto Smith MD Anesthesia Type: general ASA Status: 2 Anesthesia Type: general Last vitals BP 118/73 Pulse 62 Temp 36.2 ??C (97.1 ??F) (Temporal) Resp 18 SpO2 99% Anesthesia Post Evaluation Patient location during evaluation: PACU Patient participation: complete - patient participated Level of consciousness: fully awake Pain score: 0 Pain management: adequate Airway patency: patent Evidence of recall: no Cardiovascular status: hemodynamically stable Respiratory status: room air Hydration status: euvolemic Pt is: normothermic Nausea/Vomiting status: none No notable events documented. EL ROLLER OPERATOR * Anesthesia Procedure Notes - Larry Parsons CRNA - 09/05/2023 8:00 AM BARREL ROLLER OPERATOR Associated Order(s): Airway Airway Patient location: OR Urgency: elective Indications for airway management: anesthesia Difficult airway: no Staff: Placed by: SENIOR JAVA SOFTWARE ENGINEER: Larry Parsons CRNA Emergent airway documentation: Risks and benefits discussed: yes Consent obtained: yes Consent given by: patient Airway prep: Preoxygenated: yes Patient position: sniffing MILS maintained throughout: yes Mask difficulty assessment: 1 - vent by mask Sedation level during airway: GA Final airway details: Final airway type: endotracheal airway Tube type: ETT ETT size: 7.0 mm Cuffed: yes Technique used for successful ETT placement: direct laryngoscopy Devices/Methods used in placement: stylet Insertion site: oral Blade type: Jaclyn Blade size: 3 Cormack-Lehane (direct): grade I - full view of glottis Cuff volume: 8 mL Cuff inflated with: air ETT to teeth: 22 cm Placement verified by: auscultation and CO2 detection Airway secured with: silk tape Number of attempts: 1 EL ROLLER OPERATOR * Anesthesia Preprocedure Evaluation - Elisa Betancur MD - 09/05/2023 6:59 AM BARREL ROLLER OPERATOR Images from the original note were not included. Anesthesia Evaluation Hannah Luis is a 28 y.o. female Procedure(s): SALPINGECTOMY Pre-Op Diagnosis Codes: * Request for sterilization [Z30.2] HISTORY Past Medical History Information obtained from: patient and chart. Neurological + Psychiatric history - anxiety Pertinent negatives: seizures and CVA/stroke Cardiovascular Pertinent negatives: hypertension ; OK ; pacemaker/ICD and negative for CHF Respiratory + Current smoker (MJ) - Counseled to abstain from smoking the day of surgery. Patient refrained from smoking on day of surgery. Pertinent negatives: COPD; asthma and sleep apnea (KRISTY) Hepatic / Heme + History of anemia Gastrointestinal Pertinent negatives: GERD Renal / Pertinent negatives: renal disease Endocrine / Other Pertinent negatives: diabetes mellitus and thyroid disease Functional Capacity Functional capacity: 6-10 METs Day of Surgery assessments + Possibility of assessed (Pt gave 2 days prior) - ruled out by patient's provided history. Review of Systems Pertinent negatives: SOB; recent cold/flu; fever and chest pain Patient Active Problem List Diagnosis Date Noted ??? Request for sterilization 07/17/2023 ??? Maternal varicella, non-immune 03/30/2023 ??? Encounter for supervision of normal in second trimester 03/23/2023 ??? History of 03/23/2023 ??? HSV (herpes simplex virus) anogenital infection 03/23/2023 ??? History of premature rupture of membranes (PPROM) 03/23/2023 ??? Marijuana use 03/23/2023 History reviewed. No pertinent past medical history. Past Surgical History: Procedure Laterality Date ??? SECTION OB History 6 Para 4 Term 3 1 AB 1 Living 4 SAB 1 IAB Ectopic Multiple Live Births 4 Allergies Allergen Reactions ??? Amoxicillin Rash Med List Status: Nurse Complete Set By: Ashli De Dios RN at 09/04/2023 2:18 PM Taking? Last Dose Start Date End Date Provider HYDROcodone-acetaminophen (NORCO) 5-325 mg per tablet 09/05/2023 -- -- Provider, MD Kelley Current Facility-Administered Medications: ??? Carrier Fluids for Secondary Infusion - 0.9% Sodium Chloride, 30 mL, intravenous, PRN ??? ceFAZolin (ANCEF) 1 gram/10 mL in sterile water (premix) 2,000 mg, 2,000 mg, intravenous, Once ??? Lactated Ringer's (LR) infusion, 30 mL/hr, intravenous, Continuous ??? sodium chloride 0.9% flush 0.5-20 mL, 0.5-20 mL, intra-catheter, PRN Social History Tobacco Use Smoking Status Every Day ??? Types: Vaping Smokeless Tobacco Never Alcohol Use: Not At Risk (09/05/2023) AUDIT-C ??? Frequency of Alcohol Consumption: Never ??? Average Number of Drinks: Patient does not drink ??? Frequency of Binge Drinking: Never Substance and Sexual Activity Drug Use Not Currently ??? Types: Marijuana History reviewed. No pertinent family history. Vitals: 09/05/23 0620 BP: 136/70 Pulse: 66 Resp: 18 Temp: 36.2 ??C (97.1 ??F) SpO2: 98% PT: No results found for requested labs within last 30 days. INR: No results found for requested labs within last 30 days. APTT: No results found for requested labs within last 30 days. Hgb A1C: No results found for requested labs within last 30 days. CBC RBC: 09/05/2023: 3.83 M/cumm (L) RDW: No results found for requested labs within last 30 days. MCHC: 09/05/2023: 31.9 g/dL (L) MCH: 09/05/2023: 26.1 pg (L) MCV: 09/05/2023: 81.7 fL Hct: 09/05/2023: 31.3 % (L) Hgb: 09/05/2023: 10.0 g/dL (L) WBC: 09/05/2023: 7.6 K/cumm MPV: 09/05/2023: 9.6 fL Platelets: 09/05/2023: 248 K/cumm RDW CV: 09/05/2023: 13.7 % RDW Sd: 09/05/2023: 40.2 fL BMP Glucose: No results found for requested labs within last 30 days. Calcium: No results found for requested labs within last 30 days. Sodium: No results found for requested labs within last 30 days. Potassium: No results found for requested labs within last 30 days. CO2: No results found for requested labs within last 30 days. Chloride: No results found for requested labs within last 30 days. BUN: No results found for requested labs within last 30 days. Creatinine: No results found for requested labs within last 30 days. STOP-Bang Total Score: 0 DOS Physical Exam Medical history, medications, and allergies reviewed. Attestation: This PAT evaluation 09/05/2023. Airway Exam: Mallampati: I Cervical ROM: FROM Cardiovascular Exam: Rate: regular Rhythm: regular Pulmonary Exam: LCTA, bilat EENT Exam: trachea midline Dental Exam: Appears intact Current state: Patient's current state is cooperative. Anesthesia Plan ASA 2 My patient is approved for the Anesthesia Controlled Medication protocol when under care of a SENIOR JAVA SOFTWARE ENGINEER Planned anesthesia: General Comments: Low dose prop gtt intra-op for PONV Induction: Induction: intravenous. Postoperative Plan: No postoperative mechanical ventilation intended. Informed Consent: Discussed plan with SENIOR JAVA SOFTWARE ENGINEER. Anesthesia plan and risks discussed with patient. Consent and Attending signature: I and/or my designee have discussed the anesthesia plan, benefits, possible alternatives, parental presence at time of induction (if indicated), and clinically relevant risks that may include dental injury, unintentional awareness, and/or other complications. The patient and/or parent/legal guardian understand, and agree to proceed. All questions answered. EL ROLLER OPERATOR EL ROLLER OPERATOR documented in this encounter Plan of Treatment Not on file documented as of this encounter Procedures Procedure Name Priority Date/Time Associated Diagnosis Comments NV AN ELECTIVE ENDOTRACHEAL AIRWAY Routine 09/05/2023 8:00 AM BARREL ROLLER OPERATOR documented in this encounter Results * NV AN ELECTIVE ENDOTRACHEAL AIRWAY (09/05/2023 8:00 AM BARREL ROLLER OPERATOR) Narrative Larry Parsons CRNA - 09/05/2023 8:00 AM BARREL ROLLER OPERATOR Larry Parsons CRNA ? 09/05/2023 ??8:00 AM Airway Patient location: OR Urgency: elective Indications for airway management: anesthesia Difficult airway: no Staff: Placed by: SENIOR JAVA SOFTWARE ENGINEER: Larry Parsons CRNA Emergent airway documentation: Risks and benefits discussed: yes Consent obtained: yes Consent given by: patient Airway prep: Preoxygenated: yes Patient position: sniffing MILS maintained throughout: yes Mask difficulty assessment: 1 - vent by mask Sedation level during airway: GA Final airway details: Final airway type: endotracheal airway Tube type: ETT ETT size: 7.0 mm Cuffed: yes Technique used for successful ETT placement: direct laryngoscopy Devices/Methods used in placement: stylet Insertion site: oral Blade type: Jaclyn Blade size: 3 Cormack-Lehane (direct): grade I - full view of glottis Cuff volume: 8 mL Cuff inflated with: air ETT to teeth: 22 cm Placement verified by: auscultation and CO2 detection Airway secured with: silk tape Number of attempts: 1 Larry Parsons CRNA ANESTHESIA ORDERABLES Final Re sult documented in this encounter Visit Diagnoses Not on filedocumented in this encounter Administered Medications Inactive Administered Medications - up to 3 most recent administrations Medication Order MAR Action Action Date Dose Rate Site ceFAZolin (ANCEF) 1 gram/10 mL in sterile water (premix) intravenous, Administer over 3 Minutes, As needed, Starting on Mon09/05/23 at 0757, Anesthesia Intra-op Given 09/05/2023 7:57 AM BARREL ROLLER OPERATOR 2,000 mg dexAMETHasone (DECADRON) injection solution intravenous, Administer over 2 Minutes, As needed, Starting on Mon09/05/23 at 0755, Anesthesia Intra-op Given 09/05/2023 7:55 AM BARREL ROLLER OPERATOR 10 mg dexmedeTOMIDine in 0.9% sodium chloride (PRECEDEX) 200 mcg/50 mL (4 mcg/mL) infusion (premix) intravenous, As needed, Starting on Mon09/05/23 at 0809, Anesthesia Intra-op Given 09/05/2023 8:17 AM BARREL ROLLER OPERATOR 4 mcg Given 09/05/2023 8:12 AM BARREL ROLLER OPERATOR 4 mcg Given 09/05/2023 8:09 AM BARREL ROLLER OPERATOR 4 mcg diphenhydrAMINE (BENADRYL) 50 mg/mL injection intravenous, Administer over 2 Minutes, As needed, Starting on Mon09/05/23 at 0755, Anesthesia Intra-op Given 09/05/2023 7:55 AM BARREL ROLLER OPERATOR 25 mg esmoloL (BREVIBLOC) injection intravenous, Administer over 1 Minutes, As needed, Starting on Mon09/05/23 at 0751, Anesthesia Intra-op Given 09/05/2023 7:51 AM BARREL ROLLER OPERATOR 50 mg fentaNYL (SUBLIMAZE) preservative free injection intravenous, As needed, Starting on Mon09/05/23 at 0807, Anesthesia Intra-op Given 09/05/2023 8:53 AM BARREL ROLLER OPERATOR 50 mcg Given 09/05/2023 8:07 AM BARREL ROLLER OPERATOR 50 mcg ketamine (KETALAR) 50 mg/5 mL (10 mg/mL) in sodium chloride 0.9% (premix) intravenous, As needed, Starting on Mon09/05/23 at 0802, Anesthesia Intra-op Given 09/05/2023 8:02 AM BARREL ROLLER OPERATOR 30 mg ketorolac (TORADOL) 30 mg/mL (1 mL) injection intravenous, As needed, Starting on Mon09/05/23 at 0755, Anesthesia Intra-op Given 09/05/2023 7:55 AM BARREL ROLLER OPERATOR 30 mg Lactated Ringer's (LR) infusion 30 mL/hr, intravenous, Continuous, Starting on Mon09/05/23 at 0645, Pre-Op New Bag 09/05/2023 7:46 AM BARREL ROLLER OPERATOR lidocaine (XYLOCAINE) 20 mg/mL (2 %) preservative free injection intravenous, As needed, Starting on Mon09/05/23 at 0750, Anesthesia Intra-op Given 09/05/2023 7:50 AM BARREL ROLLER OPERATOR 100 mg midazolam (VERSED) 1 mg/mL preservative free injection intravenous, Administer over 2 Minutes, As needed, Starting on Mon09/05/23 at 0746, Anesthesia Intra-op Given 09/05/2023 7:46 AM BARREL ROLLER OPERATOR 2 mg ondansetron (ZOFRAN) injection intravenous, Administer over 2 Minutes, As needed, Starting on Mon09/05/23 at 0806, Anesthesia Intra-op Given 09/05/2023 8:06 AM BARREL ROLLER OPERATOR 4 mg propofoL (DIPRIVAN) 10 mg/mL IV intravenous, As needed, Starting on Mon09/05/23 at 0751, Anesthesia Intra-op Given 09/05/2023 8:38 AM BARREL ROLLER OPERATOR 20 mg Given 09/05/2023 8:34 AM BARREL ROLLER OPERATOR 20 mg Given 09/05/2023 8:30 AM BARREL ROLLER OPERATOR 20 mg rocuronium (ZEMURON) injection intravenous, As needed, Starting on Mon09/05/23 at 0803, Anesthesia Intra-op Given 09/05/2023 8:03 AM BARREL ROLLER OPERATOR 30 mg succinylcholine (ANECTINE) injection intravenous, As needed, Starting on Mon09/05/23 at 0751, Anesthesia Intra-op Given 09/05/2023 7:51 AM BARREL ROLLER OPERATOR 160 mg sugammadex (BRIDION) 100 mg/mL intravenous solution intravenous, As needed, Starting on Mon09/05/23 at 0841, Anesthesia Intra-op Given 09/05/2023 8:41 AM BARREL ROLLER OPERATOR 200 mg documented in this encounter Care Teams Pipe Fitter Maintenance Relationship Specialty Start Date End Date No, Physician PCP - General 03/09/23 Margareth Herrera DO [address] [place], [place] [address] Consulting Physician Obstetrics and Gynecology 09/05/23 documented as of this encounter
--- OUTSIDE RECORDS SUMMARY | 2024-10-15 15:44 | XMS_ITS | Encounter Summary ---
Author Organization [facility] Healthcare Address [address] [place] [address] Care Team Providers Care Stereoptician Name Role Phone No, Physician Primary Care Provider [phone] Encounter Details Date Type Department Care Team (Late st Contact Info) Description 08/17/2023 Telephone [facility] [address] [place] [address] Elena [place] LPN Social History [...] place to sleep or slept in a snf (including now)? No 04/14/2023 Comments Yes Sex [...] Telephone Encounter - Elena [place] LPN - 08/17/2023 3:25 PM CDT Patient called and rescheduled for [place] appointment tomorrow documented in this encounter Plan of Treatment Not on file documented as of this encounter Visit Diagnoses Not on filedocumented in this encounter Care Teams Stereoptician Relationship Specialty Start Date End Date No, Physician PCP - General 03/09/23 documented as of this encounter
--- OUTSIDE RECORDS SUMMARY | 2024-10-15 15:44 | XMS_ITS | Encounter Summary ---
Author Organization [facility] Healthcare Address [address] [place] [address] Care Team Providers Care Track Broom Operator Name Role Phone No, Physician Primary Care Provider [phone] Margareth Herrera DO Unavailable Reason for Visit * Auth/Cert (Routine) Specialty Diagnoses / Procedures Referred By Lenora t Referred To Contact Diagnoses Request for sterilization Request for sterilization [Z30.2] Procedures TN LIG/TRNSXJ FLP TUBE ABDL/VAG SPX SALPINGECTOMY Referral ID Status Reason Start Date Expiration Date Visits Re quested Visits Authorized [id number] 1 1 Encounter Details Date Type Department Care Team (Late st Contact Info) Description 09/05/2023 7:30 AM DELICATESSEN CLERK - 09/05/2023 8:45 AM DELICATESSEN CLERK Surgery [facility] Operating Room [address] [place] [id number] Margareth Herrera DO [address] [place] [address] SALPINGECTOMY Surgery Details Date/Time Status Location OR Service Patient Class Case Class Case Type Trauma Case? 09/05/2023 7:30 AM Posted [facility] OPERATING ROOM OR 06 Obstetrics / Gynecology Outpatient Elective Panel 1 Procedure LRB Anes Op Region Wound Class Comments SALPINGECTOMY Bilateral General Abdomen Class II - Clean Contaminated Surgeon Surgeon Role Service Panel Margareth Herrera DO Primary Obstetrics / G ynecology 1 documented in this encounter Social History Tobacco [...] How often do you attend chur or latter-day services? More than 4 times per year 09/01/2023 Do you belong to any clubs o r organizations such as islam groups, unions, fraternal or athletic groups, or [...] staff should administer the PHQ-9) 0 09[facility] Occupational Stress Questionnaire Answer Date Recorded [...] place to sleep or slept in a detention (including now)? No 09/01/2023 Personal Safety Answer [...] Sign Reading Time Taken Comments Blood Pressure 136/70 09/05/2023 6:20 AM DELICATESSEN CLERK Pulse 66 09/05/2023 6:20 AM DELICATESSEN CLERK Temperature 36.2 ??C (97.1 ??F) 09/05/2023 6:20 AM CS T Respiratory Rate 18 09/05/2023 6:20 AM DELICATESSEN CLERK Oxygen Saturation 98% 09/05/2023 6:20 AM DELICATESSEN CLERK Inhaled Oxygen Concentration - - Weight 75.8 kg (167 lb 1.7 oz) 09/05/2023 6:20 A M DELICATESSEN CLERK Height 165.1 cm (5' 5 ) 09/05/2023 6:20 AM DELICATESSEN CLERK Body Mass Index 27.81 09/05/2023 6:20 AM DELICATESSEN CLERK documented in this encounter Discharge Instructions * Attachments The following attachments cannot be sent through Care Everywhere. * General Anesthesia (Discharge Care) (Urdu) documented in this encounter Medications at Time [...] in this encounter H&P Notes * Margareth Herrera, - 09/05/2023 7:45 AM CST Gynecology H&P SUBJECTIVE HPI: Hannah Pyle is a 28 y.o. female who presents for desire for sterilization. She was originally scheduled for induction at [facility] yesterday with a plan for PP BS today but ended up delivering [facility] Monday night. Delivery was uncomplicated. She SROM'd [...] and even . Margareth Herrera DO 09/05/23 CATESSEN CLERK documented in this encounter Miscellaneous Notes * Perioperative Nursing Note - Sherita Conley RN - 09/05/2023 10:08 AM DELICATESSEN CLERK Pt ambulatory with no difficulty to the restroom, was able to void prior to discharge, small amountof drainage seen on elena pad. CATESSEN CLERK * Perioperative Nursing Note - Sherita Conley RN - 09/05/2023 9:38 AM DELICATESSEN CLERK Pt having pain of 05/08, Dr. Herrera made aware, order for percocet placed. CATESSEN CLERK * Op Note - Margareth Herrera DO [...] She was originally scheduled for induction at [facility] yesterday with a plan for PP BS today but ended up delivering at [facility] Monday night. Delivery was uncomplicated. She SROM'd [...] DO, was present for the entire procedure. CATESSEN CLERK * Pre-Procedure Instructions - Ashli De Dios RN - 09/04/2023 2:19 PM DELICATESSEN CLERK We are pleased that you and your doctor have chosen [facility] for your surgery. We hope that the [...] morning of surgery Use no make-up, nail filipino, lotions, oils or powders on your skin. [...] posted at the top of the page. CATESSEN CLERK documented in this encounter Plan of Treatment Not on file documented as of this encounter Procedures Procedure Name Priority Date/Time Associated Diagnosis Comments SURGICAL PATHOLOGY Routine 09/05/2023 9: 49 AM DELICATESSEN CLERK Request for sterilization SALPINGECTOMY 09/05/2023 7:46 AM DELICATESSEN CLERK Request for sterilization DIFFERENTIAL AUTO STAT 09/05/2023 6:3 9 AM DELICATESSEN CLERK CBC WITH AUTO DIFFERENTIAL STAT 09/05/2023 6:39 AM DELICATESSEN CLERK documented in this encounter Results * Surgical pathology (09/05/2023 9:49 AM DELICATESSEN CLERK) Tissue (Fallopian tube, sterilization) 09/05/2023 8:03 AM DELICATESSEN CLERK Narrative PATHOLOGY [facility] ([facility]) - 09/06/2023 10:35 AM DELICATESSEN CLERK EPIC results best viewed via link to PDF [facility] Department of Pathology [address] [place] [address] Note to Patients: This report may contain [...] Final Report Patient Name: ??HANNAH PYLE Address: ??[facility] [address], ??[place], [place] ?? Gender: ??F : ??1995 (Age: 28) Service: ??Surgery Location: ??[facility] Hospital #: ??[id number] Patient Type: ??[facility] IP Accession # ?[id number] Taken: ??09/05/2023 Received: ??09/05/2023 Accessioned: ??09/05/2023 Reported: [...] determined by the Surgical Pathology Department at [facility] as part of an ongoing quality control operator program and in compliance with federally mandated [...] characteristics determined by the Surgical Pathology Department [facility]. ??It has not been cleared or approved by the U. S. Food and Drug Administration. Note for decalcified specimens: This assay has not been validated on decalcified tissues. Results should be interpreted with caution given the possibility of false negativity on decalcified specimens Margareth Herrera DO LAB PATHOLOGY ORDERABLE S Final Result PATHOLOGY [facility] ([facility]) [address] [place], [place] [id number] * Differential, auto (09/05/2023 6:39 AM DELICATESSEN CLERK) Neutrophil abs 4.4 1.7 - 6.5 K/cumm [facility] ([facility]) Imm gran abs 0.0 0.0 - 0.1 [...] revised on 2018. Blood 09/05/2023 6:39 AM DELICATESSEN CLERK 09/05/2023 6:43 AM DELICATESSEN CLERK Margareth Herrera DO LAB BLOOD ORDERABLES Fi nal Result [facility] ([facility]) [address] [facility] Department [place] [address] * (ABNORMAL) CBC with auto differential (09/05/2023 6:39 AM DELICATESSEN CLERK) WBC 7.6 3.8 - 9.9 K/cumm [facility] [...] [facility] ([facility]) Blood 09/05/2023 6:39 AM DELICATESSEN CLERK 09/05/2023 6:43 AM DELICATESSEN CLERK Margareth Herrera DO LAB BLOOD ORDERABLES Fi nal Result [facility]) [address] [facility] Department [place] [address] documented in this encounter Visit Diagnoses Diagnosis Request for sterilization- Primary Request for sterilization documented in this encounter Admitting Diagnoses Diagnosis Request for sterilization documented in this encounter Administered Medications Inactive Administered Medications - up to 3 most recent administrations Medication Order MAR Action Action Date Dose Rate Site BUPivacaine-EPINEPHrine (MARCAINE with EPI) 0.5 %-1:200,000 preservative free injection As needed, Starting on Mon09/05/23 at 0829, Intra-Op Given 09/05/2023 8:38 AM DELICATESSEN CLERK 10 mL Surgical Site fentaNYL (SUBLIMAZE) preservative free injection 50 mcg 50 mcg, intravenous, Every 10 min PRN, 1st line for pain, Starting on Mon09/05/23 at 0906, Phase I, Notify Anesthesiologist if total PACU dose reaches 100 mcg and pain score 5/10 or more., Indications: PainIndications:Pain Given 09/05/2023 9:21 AM DELICATESSEN CLERK 50 mcg Given 09/05/2023 9:09 AM DELICATESSEN CLERK 50 mcg Lactated Ringer's (LR) infusion 30 mL/hr, intravenous, Continuous, Starting on Mon09/05/23 at 0645, Pre-Op New Bag 09/05/2023 7:46 AM DELICATESSEN CLERK oxyCODONE-acetaminophen (PERCOCET) 5-325 mg per tablet 1 tablet 1 tablet, oral, Once, On Mon09/05/23 at 1015, For 1 dose, Indications: PainIndications:Pain Given 09/05/2023 9:52 AM DELICATESSEN CLERK 1 tablet sodium chloride 0.9% irrigation As needed, Starting on Mon09/05/23 at 0820, Intra-Op Given 09/05/2023 8:20 AM DELICATESSEN CLERK 1,000 mL Surgical Site documented in this encounter Discontinued Medications Medication [...] may contain times in both CDT and DELICATESSEN CLERK. Scheduled Medication Order 09/03/2023 09/04/2023 09/05/2023 ceFAZolin [...] 0829, Intra-Op 0838 (Given - Provid er: CHRIS Arteaga) fentaNYL (SUBLIMAZE) preservative free injection 50 mcg [...] Intra-Op 0820 (Given - Provid er: Margareth Herrera DO - Comment: On sterile field for irrigation) documented in this encounter Orders Medications Ordered That Everette ht Not Have Been Administered Count Last Ordered Date First Ordered Date acetaminophen (TYLENOL) tablet 1,000 mg 1 1 11/05/2022 Carrier Fluids for Secondary Infusion - 0.9% Sodium Chloride 1 09/05/2023 ceFAZolin (ANCEF) 1 gram/10 mL in sterile water (premix) 2,000 mg 2 09/05/2023 Lactated Ringer's (LR) infusion 1 midazolam (VERSED) 2 mg/2 mL preservative free injection - ADS Override Pull 1 09/05/2023 naloxone (NARCAN) 0.4 mg/mL injection 0.04-0.4 mg 1 09/05/2023 ondansetron (ZOFRAN) injection 4 mg 1 09/05 sodium chloride 0.9% flush 0.5-20 mL 1 04/2023 Diet Count Last Ordered Date First Orde [...] 09/05/2023 documented in this encounter Care Teams Track Broom Operator Relationship Specialty Start Date End Date No, Physician PCP - General 03/09/23 Margareth Herrera DO [address] [place] [address] Consulting Physician Obstetrics and Gynecology 09/05/23 documented as of this encounter
--- OUTSIDE RECORDS SUMMARY | 2024-10-15 15:45 | XMS_ITS | Encounter Summary ---
Author Organization [facility] Address [address] [address] Care Team Providers Care Generator Operator Straight Bevel Gear Name Role Phone No, Physician Primary Care Provider [phone] Reason for Visit * Reason Comments Routine Visit Encounter Details Date Type Department Care Team (Late st Contact Info) Description 05/15/2023 2:40 PM CDT Office Visit [facility] [address] [place] [address] Margareth Rivera, DO [address] [address] care, subsequent , second trimester (Primary Dx) Social History Tobacco Use Types Packs/Day Years Used Date Smoking Tobacco: Every Day Vaping Smokeless Tobacco: Never Tobacco Cessation:Ready to Q uit: Not Asked; Counseling Given: Not Answered Overall Financial Resource Strain (CARDIA) Answe r [...] place to sleep or slept in a care home (including now)? No 04/14/2023 Comments Yes Sex [...] Sign Reading Time Taken Comments Blood Pressure 120/70 05/15/2023 2:37 PM CDT Pulse - - Temperature - - Respiratory Rate - - Oxygen Saturation - - Inhaled Oxygen Concentration - - Weight 75.4 kg (166 lb 3.2 oz) 05/15/2023 2:37 P M CDT Height - - Body Mass Index 27.66 03/23/2023 10:30 AM CDT documented in this encounter Ordered Prescriptions Prescription Sig Dispense Quantity Refills Last Filled Start Date End Date polyethylene glycol (Miralax) 17 gram packetIndications: constipation Take 1 packet (17 g total) by mouth daily 30 packet 2 05/15/2023 3 docusate sodium (COLACE) 100 mg capsuleIndications :constipation Take 1 capsule (100 mg total) by mouth 2 (two) times a day 60 capsule 2 05/15/2023 3 documented in this encounter Progress Notes * Margareth Rivera, DO - 05/15/2023 2:40 PM CDT Pt doing well. Having some cramping but thinks it might be gas. Does admit to issues with constipation. Will send Rx for Colace and Miralax to pharmacy. She denies any LOF or VB. Reports good movement. Struggling with sleep at night and sounds like it is from restless leg. Recommend magnesiumlotion and magnesium salt for the bath. Precautions given. 3rd trimester labs ordered for next visit. RTC in 4 weeks. documented in this encounter Miscellaneous Notes * Addendum Note - Margareth Rivera DO - 05/15/2023 2:40 PM CDTAddended by: MARGARETH RIVERA on: 05/15/2023 03:29 PM Modules accepted: Orders documented in this encounter Plan of Treatment Not on file documented as of this encounter Procedures Procedure Name Priority Date/Time Associated Diagnosis Comments POCT URINE GLUCOSE AND PROTEIN Routine 05/15/2023 2:48 PM CDT care, subsequent , second trimester documented in this encounter Results * (ABNORMAL) POCT urine glucose and protein (05/15/2023 2:48 PM CDT) Glucose, ur, POC Negative Negative MG/DL Protein, ur, POC 1+(A) Negative Lot Number [id number] Urine 05/15/2023 2:48 PM CDT Margareth Rivera DO POINT OF CARE TEST ORDE RABCAL Final Result documented in this encounter Visit Diagnoses Diagnosis care, subsequent , second trimester- Primary documented in this encounter Care Teams Generator Operator Straight Bevel Gear Relationship Specialty Start Date End Date No, Physician PCP - General 03/09/23 documented as of this encounter
--- OUTSIDE RECORDS SUMMARY | 2024-10-15 15:45 | XMS_ITS | Encounter Summary ---
Author Organization [facility] Address [address] [facility] [address] [place] [address] Care Team Providers Care Operating Engineer Name Role Phone No, Physician Primary Care Provider [phone] Encounter Details Date Type Department Care Team (Late st Contact Info) Description 07/06/2023 Telephone [facility] [address] [place] [address] Elena Veliz LPN Social History [...] slept in a half-way (including now)? No 04/14/2023 Comments Yes Sex [...] encounter Miscellaneous Notes * Telephone Encounter - Denise Venegas - 07/06/2023 3:19 PM CDT Patient notified and verbalized understanding. * Telephone Encounter - Elena Veliz LPN - 07/06/2023 3:00 PM CDT LMOM to return call. * Telephone Encounter - Elena Veliz LPN - 07/06/2023 3:00 PM CDT ----- Message from Margareth Herrera DO sent at 07/06/2023 2:43 PM CDT ----- Please inform the patient her 3 hour glucose test was normal. documented in this encounter Plan of Treatment Not on file documented as of this encounter Visit Diagnoses Not on filedocumented in this encounter Care Teams Operating Engineer Relationship Specialty Start Date End Date No, Physician PCP - General 03/09/23 documented as of this encounter
--- OUTSIDE RECORDS SUMMARY | 2024-10-15 15:45 | XMS_ITS | Encounter Summary ---
Author Organization [facility] Address [address] [facility] [address] [place] [address] Care Team Providers Care High Lighter Name Role Phone No, Physician Primary Care Provider [phone] Encounter Details Date Type Department Care Team (Late st Contact Info) Description 07/14/2023 Telephone [facility] [address] [place] [address] Margareth Herrera, DO [address] [address] Social History Tobacco Use Types Packs/Day Years [...] slept in a usp (including now)? No 04/14/2023 Comments Yes Sex [...] encounter Miscellaneous Notes * Telephone Encounter - Vanesa Farooq MA - 07/14/2023 9:52 AM CDT FYI: Pt called and rescheduled her appt till Monday and pt wanted to let you know that she went to [facility] and was checked and that staff at [place] stated she was thinning and dilated to a 1 and just wanted to let you know of this. documented in this encounter Plan of Treatment Not on file documented as of this encounter Visit Diagnoses Not on filedocumented in this encounter Care Teams High Lighter Relationship Specialty Start Date End Date No, Physician PCP - General 03/09/23 documented as of this encounter
--- OUTSIDE RECORDS SUMMARY | 2024-10-15 15:45 | XMS_ITS | Encounter Summary ---
Author Organization [facility] Address [address] [facility] [address] [place] [address] Care Team Providers Care Scrubber System Attendant Name Role Phone No, Physician Primary Care Provider [phone] Encounter Details Date Type Department Care Team (Late st Contact Info) Description 06/22/2023 Telephone [facility] [address] [place] [address] Elena Veliz LPN Social History [...] place to sleep or slept in a custodial (including now)? No 04/14/2023 Comments Yes Sex [...] Telephone Encounter - Elena Veliz LPN - 06/28/2023 4:17 PM CDT Patient notified. Will go to [facility] in [place] tomorrow for 3 hr GTT * Telephone Encounter - Elena Veliz LPN - 06/27/2023 12:00 PM CDT LMOM to return call. Needs to get her 3 hr GTT done. * Telephone Encounter - Elena Veliz LPN - 06/22/2023 3:13 PM CDT Patient notified. Will call back when she decides where she is going to get 3 hr GTT done. * Telephone Encounter - Elena Veliz LPN - 06/22/2023 3:13 PM CDT ----- Message from Margareth Herrera DO sent at 06/22/2023 2:22 PM CDT ----- Please inform the patient her GCT was elevated (I use 130 as my cutoff). She will need to complete a 3 hour glucose test and should fast for at least 8 hours beforehand. documented in this encounter Plan of Treatment Not on file documented as of this encounter Procedures Procedure Name Priority Date/Time Associated Diagnosis Comments GLUCOSE TOLERANCE 3 HOUR, GESTATIONAL, 4 SPECIMENS (100G) Routine 07/05/2023 9:21 AM CDT Elevated glucose tolerance test documented in this encounter Results * Glucose Tolerance 3 Hour, Gestational, 4 Specimens (100g) (07/05/2023 9:21 AM CDT) Glucose, fasting 75 65 - 94 mg/dL [facility] Glucose, 1 hour 165 <180 mg/dL [facility] Glucose, 100g, 2 hr, pl 127 <155 mg/dL [email or web address] Glucose, 100g, 3 hr, pl 74 <140 mg/dL [facility] Comment [facility] Comment: ?? Galaviz/Coustan Criteria: Two or more values greater than the above reference intervals are suggestive of gestational diabetes. ?? Serum 07/05/2023 9:21 AM CDT 07/05/2023 9:22 AM CDT Narrative [facility] - 07/06/2023 2:32 AM CDT FASTING:YES FASTING: YES Margareth Herrera DO LAB BLOOD ORDERABLES Fi nal Result [facility] [address] [place] [address] documented in this encounter Visit Diagnoses Diagnosis Elevated glucose tolerance test- Primary Impaired glucose tolerance test documented in this encounter Care Teams Scrubber System Attendant Relationship Specialty Start Date End Date No, Physician PCP - General 03/09/23 documented as of this encounter
--- OUTSIDE RECORDS SUMMARY | 2024-10-15 15:45 | XMS_ITS | Encounter Summary ---
Author Organization [facility] Address [address] [address] Care Team Providers Care Energy Analyst Name Role Phone No, Physician Primary Care Provider [phone] Encounter Details Date Type Department Care Team (Late st Contact Info) Description 03/23/2023 12:50 PM CDT Lab [facility] [address] [place] [phone] care, subsequent , second trimester; 15 weeks gestation of Social History Tobacco Use Types Packs/Day Years Used Date Smoking Tobacco: Every Day Vaping Smokeless Tobacco: Never Comments Yes Sex and Gender Information Value [...] as of this encounter Visit Diagnoses Diagnosis care, subsequent , second trimester 15 weeks gestation of documented in this encounter Care Teams Energy Analyst Relationship Specialty Start Date End Date No, Physician PCP - General 03/09/23 documented as of this encounter
--- OUTSIDE RECORDS SUMMARY | 2024-10-15 15:45 | XMS_ITS | Encounter Summary ---
Author Organization [facility] Healthcare Address [address] [place] [id number] Care Team Providers Care Swedger Name Role Phone No, Physician Primary Care Provider [phone] Encounter Details Date Type Department Care Team (Latest Contact Info) Description 03/23/2023 11:20 AM CDT - 03/23/2023 11:59 PM CDT Hospital Encounter [address] [address] care, subsequent , second trimester; 15 weeks gestation of ; Screen for sexually transmitted diseases; Screening for malignant neoplasm of cervix Discharge Disposition: Discharge to home or self [...] on file documented as of this encounter Medications at Time of Discharge [id number] olic (Kosher Plus Iron) 30 mg iron- 1 mg tablet Take 1 tablet by mouth daily 03/06/2021 08/22/2023 documented as of this encounter Discharge Disposition Disposition Code Departure Means Destination Discharge to home or self care documented in this encounter Plan of Treatment Scheduled Orders Name Type Priority Associated Diagnoses Orde r Schedule Alpha fetoprotein, quad screen Lab Routine care, subsequent , second trimester 15 weeks gestation of Once for 1 Occurrences starting 03/23/2023 until 03/23/2023 documented as of this encounter Procedures Procedure Name Priority Date/Time Associated Diagnosis Comments N. GONORRHOEAE/C. TRACHOMATIS AMPLIFICATION Routine 03/23/2023 11:20 AM CDT Screen for sexually transmitted diseases DIFFERENTIAL AUTO Routine 03/23/2023 11: 20 AM CDT care, subsequent , second trimester 15 weeks gestation of HIV 1/2 ANTIBODY PLUS P24 ANTIGEN Routine 03/23/2023 11:20 AM CDT care, subsequent , second trimester 15 weeks gestation of ALPHA FETOPROTEIN, QUAD SCREEN Routine 03/23/2023 11:20 AM CDT CBC WITH AUTO DIFFERENTIAL Routine 03/23/2023 11:20 AM CDT care, subsequent , second trimester 15 weeks gestation of HEPATITIS C ANTIBODY Routine 03/23/2023 11:20 AM CDT care, subsequent , second trimester 15 weeks gestation of DRUGS OF ABUSE SCREEN, URINE WITHOUT CONFIRMATION Routine 03/23/2023 11:20 AM CDT care, subsequent , second trimester 15 weeks gestation of RUBELLA IGG Routine 03/23/2023 11:20 AM CDT care, subsequent , second trimester 15 weeks gestation of RPR Routine 03/23/2023 11:20 AM CDT care, subsequent , second trimester 15 weeks gestation of HEPATITIS B SURFACE ANTIGEN Routine 03/23/2023 11:20 AM CDT care, subsequent , second trimester 15 weeks gestation of TYPE AND SCREEN Timed 03/23/2023 11:20 AM CDT care, subsequent , second trimester 15 weeks gestation of URINE CULTURE Routine 03/23/2023 11:20 AM CDT care, subsequent , second trimester 15 weeks gestation of VARICELLA ZOSTER ANTIBODY, IGG Routine 03/23/2023 11:20 AM CDT care, subsequent , second trimester 15 weeks gestation of PAP WITH REFLEX TO HIGH RISK HPV Routine 03/23/2023 8:02 AM CDT Screening for malignant neoplasm of cervix documented in this encounter Results * N. gonorrhoeae/C. trachomatis Amplification Thin prep (03/23/2023 11:20 AM CDT) C. trachomatis Not detected Not detected [facility] N. gonorrhoeae Not detected Not detected [facility] Comment: Testing performed by the [facility]. This assay detects Chlamydia trachomatis and Neisseria gonorrhoeae by nucleic acid amplification testing (NAAT). This test is approved by the [place] Food and Drug Administration and the performance characteristics have been verified by the laboratory. The performance characteristics of this test have not been evaluated in women or individuals less than 16 years of age. Thin prep 03/23/2023 11:2 0 AM CDT 03/23/2023 8:31 PM CDT us Margareth Herrera DO LAB MICROBIOLOGY - GENE RAL ORDERABLES Final Result [facility] [address] [place] [address] * Differential, auto (03/23/2023 11:20 AM CDT) Neutrophil abs 5.5 1.7 - 6.5 K/cumm [facility] Imm gran abs 0.0 0.0 - 0.1 K/cumm [facility] Lymphocyte abs 1.7 0.8 - 3.3 K/cumm [facility] Monocyte abs 0.7 0.2 - 0.8 K/cumm [facility] Eosinophil abs 0.2 0.0 - 0.5 K/cumm [facility] CH Basophil abs 0.0 0.0 - 0.1 K/cumm [facility] Neutrophil pct 68.0 % [facility] Comment: Interpretive Data Percent cell count reference ranges are not reported, since discordance with absolute values may lead to misinterpretation of CBC data. Current Interpretive Data was last revised on 2018. Imm gran pct 0.2 % [facility] Comment: Interpretive Data Percent cell count reference ranges are not reported, since discordance with absolute values may lead to misinterpretation of CBC data. Current Interpretive Data was last revised on 2018. Lymphocyte pct 20.5 % [facility] CH Comment: Interpretive Data Percent cell count reference ranges are not reported, since discordance with absolute values may lead to misinterpretation of CBC data. Current Interpretive Data was last revised on 2018. Monocyte pct 8.8 % [facility] CH Comment: Interpretive Data Percent cell count reference ranges are not reported, since discordance with absolute values may lead to misinterpretation of CBC data. Current Interpretive Data was last revised on 2018. Eosinophil pct 2.1 % [facility] Comment: Interpretive Data Percent cell count reference ranges are not reported, since discordance with absolute values may lead to misinterpretation of CBC data. Current Interpretive Data was last revised on 2018. Basophil pct 0.4 % [facility] CH Comment: Interpretive Data Percent cell count reference ranges are not reported, since discordance with absolute values may lead to misinterpretation of CBC data. Current Interpretive Data was last revised on 2018. Blood 03/23/2023 11:2 0 AM CDT 03/23/2023 5:32 PM CDT us Margareth Herrera DO LAB BLOOD ORDERABLES Fi nal Result [facility] [address] [address] Department [place] [address] * Alpha fetoprotein, quad screen (03/23/2023 11:20 AM CDT) Recalc Maternal Serum Screen. Not Reported [facility] CH Collection Date 03/23/23 [facility]ER CH Birthdate. [birth year] [facility] CH Calc Age at SRINIVASA. 28 years CERNER CH Patient weight 162 [facility] CH Maternal Wt 1. Not Reported [facility] CH Insulin Dependent Diabetes. No [facility] CH Number of Fetuses 1 [facility]ER CH Ivf . No [facility]ER CH SRINIVASA by U/S Scan. Not Reported [facility] CH SRINIVASA by LMP. 09/11/2023 [facility] CH GA on Collection by U/S Scan. Not Reported [facility] GA on Collection by Dates. 15,3 [facility] CH GA Used In Risk. Dates estimate [facility] alpha Fetoprotein 28.2 ng/mL [facility] Estriol, unconjugated 0.60 ng/mL [facility] HCG, qual 46.1 IUnits/m L [facility] Inhibin A, interpretation 289 pg/mL [facility] Down Syndrome Screen Risk Estimate. <270 [facility] Down Syndrome Maternal Age Risk. [facility] Trisomy 18 risk assessment <1/50,000 <1/100 [facility] alpha fetoprotein See Footnote [facility] Comment: Screen negative for neural tube defects, Down syndrome and trisomy 18. Additional Comments. Not Reported [facility] Recommended Follow Up. None. [facility] General Test Info. See Footnote [facility] Comment: This screening provides an estimation of risk, not a diagnosis. Incorrect or incomplete information may significantly alter results. Risks are adjusted for donor eggs, frozen embryos, and IVF. Results may be unreliable in twin pregnancies with a demise. Results are not available for pregnancies with triplets and higher-order multiples. A positive result occurs when the risk for Down syndrome equals or exceeds 1 in 270, when the risk for trisomy 18 equals or exceeds 1 in 100, or when the AFP MoM equals or exceeds 2.5. Screen results and family history influence individual risk. If there is a family history of a neural tube defect, chromosome abnormality, or other inherited condition, consider the option of a genetic consultation. For further information, please contact the maternal screening laboratory at . ADDITIONAL INFORMATION This test was developed and its performance characteristics determined by [facility] in a manner consistent with CLIA requirements. This test has not been cleared or approved by the U.S. Food and Drug Administration. Test Performed by: [facility] [place] [address] [place] [address] Carrot Harvester: Chris Cleveland M.D. Ph.D.; CLIA# [id number] RESULTS SUMMARY Normal risk [facility] NEURAL TUBE DEFECT RISK ESTIMATE 11/05,700 [facility] AFP MOM 0.93 <2.50 MoM [facility] CH AFP MOM (14,0-14,6) Not Reported [facility] CH UE3 MOM 0.99 MoM [facility] CH HCG,TOTAL MOM 1.05 MoM [facility] CH INHIBIN MOM 1.99 MoM [facility] CH PATIENT RACE non-Black [facility] CH CURRENT CIGARETTE SMOKING STATUS non-Smoker [facility] CH NUMBER OF CHORIONS Not applicable [facility] PREV DOWN (T21) / TRISOMY No [facility] PREV W/NEURAL TUBE DEFECT No [facility] CH PATIENT OR FATHER OF BABY HAS NTD No [facility] CH INITIAL OR REPEAT TESTING Initial testing [facility] PHYSICIAN PHONE NUMBER [phone] [facility] Blood 03/23/2023 11:2 0 AM CDT 03/23/2023 5:32 PM CDT Margareth Herrera DO LAB GENETIC TESTING Fin al Result Performing Organization Address City/[facility]/ZIP Co de Phone Number [facility] [address] [address] [address] [place] [address] * Urine culture Urine, clean voided (03/23/2023 11:20 AM CDT) Report Final Report: Less than 100,000 colonies/mL (clinically insignificant growth based on current clinical standards) [facility] Comment:Testing performed by : [facility], [address] [place]., [address] Organism (CLINICALLY INSIGNIFICANT GROWTH [facility] Urine, clean voided 03/23/2023 11:20 AM CDT 03/23/2023 9:05 PM CDT Narrative [facility] - 03/25/2023 5:16 AM CDT Testing performed by [facility] Microbiology Laboratory ([phone]) Margareth Herrera DO LAB MICROBIOLOGY - GENE RAL ORDERABLES Final Result Performing Organization Address City/[facility]/ZIP Co de Phone Number [facility] [place] [address] [address] Department of [place], [place] [phone] * (ABNORMAL) Drugs of Abuse Screen, Urine without Confirmation (03/23/2023 11:20 AM CDT) [facility] Amphetamine, ur Not Detected CutOff 500ng/mL [facility] Comment: Interpretive Data - Amphetamines: ??Samples containing greater than 500 ng/mL d-methamphetamine ??or other cross-reacting amphetamine compounds are reported as positive. ??Amphetamine immunoassays are subject to significant false positive rates due to cross-reactivity of non-amphetamine drugs. Current Interpretive Data was last reviewed 2018. Barbiturates, ur Not Detected CutOff 200ng/mL [facility] Comment: Interpretive Data - Barbiturates: ??Samples containing greater than 200 ng/mL secobarbital or other cross-reacting barbiturate compounds are reported as positive. ??False positive and false negative results are possible. Current Interpretive Data was last reviewed 2018. Benzodiazepines, ur Not Detected CutOff 100ng/mL [facility] Comment: Interpretive Data - Benzodiazepines: ??Samples containing greater than 100 ng/mL nordiazepam or other cross-reacting compounds are reported as positive. ?? False positive and false negative results are possible. ?? Current Interpretive Data was last reviewed 2018. Cannabinoids, ur Detected(A) CutOff 50 ng/mL [facility] Comment: Interpretive Data - Cannabinoids: ??Samples containing greater than 50 ng/mL delta-9 THC -COOH or other cross-reacting compounds are reported as positive. ??False positive and false negative results are possible. ?? Current Interpretive Data was last reviewed 2018. Cocaine, ur Not Detected CutOff 150ng/mL [facility] Comment: Interpretive Data - Cocaine: ??Samples containing greater than 150 ng/mL benzoylecgonine or other cross-reacting compounds are reported as positive. False positive and false negative results are possible. Current Interpretive Data was last reviewed 2018. Fentanyl, Ur Not Detected Cutoff 1 ng/mL [facility] Comment: Interpretive Data - Fentanyls: ??Samples containing greater than 1 ng/mL fentanyl or other cross-reacting fentanyl compounds are reported as detected. ??False positive and false negative results are possible. Current Interpretive Data was last reviewed 2019. Methadone, ur Not Detected CutOff 300ng/mL [facility] Comment: Interpretive Data - Methadone: ??Samples containing greater than 300 ng/mL d,l-methadone or other cross-reacting compounds are reported as positive. ??False positive and false negative results are possible. Current Interpretive Data was last reviewed 2018. Opiates, ur Not Detected CutOff 300ng/mL [facility] Comment: Interpretive Data - Opiates: ??Samples containing greater than 300 ng/mL morphine or other cross-reacting compounds are reported as positive. ??False positive and false negative results are possible. Current Interpretive Data was last reviewed 2018. Oxycodone, ur Not Detected CutOff 100ng/mL [facility] Comment: Interpretive Data - Oxycodone: ??Samples containing greater than 100 ng/mL oxycodone or other cross-reacting compounds are reported as positive. ??False positive and false negative results are possible. ?? Current Interpretive Data was last reviewed 2018. Phencyclidine, ur Not Detected CutOff 25 ng/mL [facility] Comment: Interpretive Data - Phencyclidine: ??Samples containing greater than 25 ng/mL phencyclidine or other cross-reacting compounds are reported as positive. ??False positive and false negative results are possible. ?? Current Interpretive Data was last reviewed 2018. Urine Creatinine 116 mg/dL [facility] Comment: Interpretive Data Urine Creatinine: < 10 mg/dL is extremely dilute = or > 10 but < 20 mg/dL is dilute = or > 20 mg/dL is normal Current Interpretive Data was last revised on 2018. Urine 03/23/2023 11:2 0 AM CDT 03/23/2023 5:32 PM CDT Narrative [facility] - 03/23/2023 6:06 PM CDT Drug of Abuse screening is performed by immunoassay for medical purposes only. ??This is not to be used for Pain Management purposes. Margareth Herrera DO LAB URINE ORDERABLES Fi nal Result [facility] [address] [address] Department [place] [address] * HIV 1/2 Antibody plus p24 Antigen Blood (03/23/2023 11:20 AM CDT) Pathologist [facility] HIV 1/2 ab + p24 ag Nonreactive Nonreactive [facility] Comment: Nonreactive for HIV-1 antigen and HIV-1/HIV-2 antibodies. No laboratory evidence of HIV infection. If acute HIV infection is suspected, consider testing for HIV-1 RNA. Blood 03/23/2023 11:2 0 AM CDT 03/23/2023 5:32 PM CDT Margareth Herrera DO LAB MICROBIOLOGY - GENE RAL ORDERABLES Final Result [facility] [address] [address] [place] [address] * RPR Blood (03/23/2023 11:20 AM CDT) [facility] RPR Nonreactive Nonreactive [facility] Blood 03/23/2023 11:2 0 AM CDT 03/23/2023 5:32 PM CDT Margareth Herrera DO LAB MICROBIOLOGY - GENE RAL ORDERABLES Final Result Performing Organization Address City/[facility]/ZIP Co de Phone Number OSC[facility] [address] [address] [place] [address] * (ABNORMAL) Varicella Zoster IgG antibody Blood (03/23/2023 11:20 AM CDT) Pathologist [facility] VZV IgG Nonreacti ve(A) Reactive [facility] Comment: Non-reactive: No detectable antibody to Varicella-zoster virus.??Such individuals are presumed to be uninfected and to be susceptible to primary infection. Testing performed by: [facility], [address], [place]., [address] Blood 03/23/2023 11:2 0 AM CDT 03/24/2023 12:51 PM CDT us Margareth Herrera DO LAB MICROBIOLOGY - GENE RAL ORDERABLES Final Result [facility] [place] [address] [address] Department [place] [address] * Type and screen (03/23/2023 11:20 AM CDT) Rinku, indirect Negative [facility] ABO Rh B Positive [facility] CH Blood 03/23/2023 11:2 0 AM CDT 03/23/2023 5:36 PM CDT Narrative [facility] CH - 03/23/2023 7:02 PM CDT Has the patient had Daratumumab or Isatuximab in the past 6 months?->Unknown Margareth Herrera DO LAB BLOOD BANK TEST ORD ERABLES Final Result Performing Organization Address [facility] Co de Phone Number [facility] [place] [address] [address] Department [place] [address] * Rubella IgG antibody (03/23/2023 11:20 AM CDT) Pathologist [facility] Rubella IgG Reactive [facility] CH Comment: Reactive: Results suggest response to immunization or prior exposure to the virus. Testing performed by: [facility], [address] [place]., [address] Blood 03/23/2023 11:2 0 AM CDT 03/24/2023 12:51 PM CDT Margareth Herrera DO LAB MICROBIOLOGY - GENE RAL ORDERABLES Final Result Performing Organization Address City/[facility]/ZIP Co de Phone Number [facility] [place] [address] [address] [place] [address] * Hepatitis B Surface Antigen (03/23/2023 11:20 AM CDT) HepBsAg Nonreactive Nonreactive [facility] CH Blood 03/23/2023 11:2 0 AM CDT 03/23/2023 5:32 PM CDT Margareth Herrera DO LAB MICROBIOLOGY - GENE RAL ORDERABLES Final Result Performing Organization Address City/[facility]/ZIP Co de Phone Number [facility] [place] [address] [facility] [place] [address] * Hepatitis C antibody (03/23/2023 11:20 AM CDT) Hep C Ab Nonreactive Nonreactive [facility] Comment: Interpretive Data Nonreactive: Antibodies to HCV [...] GENE RAL ORDERABLES Edited Result - Final Performing Organization Address City/[facility] Co de Phone Number [facility] [place] [address] [facility] [place] [address] * CBC with auto differential (03/23/2023 11:20 AM CDT) Pathologist [facility] WBC 8.1 3.8 - 9.9 K/cumm [facility] Hgb 11.9 11.9 - 15.5 g/dL [facility] Hct 35.9 35.6 - 45.5 % [facility] Plt 273 150 - 400 K/cumm [facility] MPV 10.1 9.1 - 12.3 fL [facility] RBC 4.04 3.90 - 5.20 M/cumm [facility] MCV 88.9 81.3 - 96.4 fL [facility] MCH 29.5 27.1 - 33.3 pg [facility] MCHC 33.1 32.3 - 35.7 g/dL [facility] RDW CV 13.7 11.1 - 14.9 % [facility] RDW SD 45.0 35.7 - 48.1 fL [facility] NRBC abs 0.00 0.00 - 0.01 K/cumm [facility] Blood 03/23/2023 11:2 0 AM CDT 03/23/2023 5:32 PM CDT us Margareth Herrera DO LAB BLOOD ORDERABLES Fi nal Result [facility] [address] [facility] [place] [address] * Pap with reflex to High Risk HPV (03/23/2023 8:02 AM CDT) Thin prep (Pap test) 03/23/2023 8:02 AM CDT 03/23/2023 8:02 AM CDT Narrative PATHOLOGY CH - 03/28/2023 1:21 PM CDT [facility] Department of Pathology [id number] [place], [place] [id number] Final Report Note to Patients: This report [...] ??HANNAH PYLE Address: ??[address], ?? [place], [place] [address] Gender: ??F : ??1995 (Age: 27) Service: ?? Location: ?? Hospital #: ??[id number] Patient Type: ?? SPECIMEN Taken: ??03/23/2023 Received: ??03/23/2023 Accessioned:: ??03/24/2023 Reported: ??03/28/2023 Physician(s): Nessa Mcgee D.O. Diagnosis: SOURCE OF SPECIMEN ? Imaged Thinprep Pap Test w/ Reflex HPV - Director Of Medical Services Cytologic Material: STATEMENT OF ADEQUACY ?- Specimen satisfactory for interpretation; endocervical/transformation zone component absent or ?insufficient ? GENERAL CATEGORIZATION: ?- Negative for intraepithelial lesion or malignancy ? INTERPRETATION: ?- Numerous inflammatory cells present ? DISHA Faulkner(ASCP) Report Electronically Reviewed and Signed Out By ??DISHA Faulkner(ASCP) ??03/28/2023 13:21:27Specimen(s) Received: A: Imaged Thinprep Pap Test w/ Reflex HPV - Director Of Medical Services Cytologic Material Clinical History: Last Menstrual Period: [...] determined by the Surgical Pathology Department at [facility] as part of an ongoing quality control lab tech program and in compliance with federally mandated [...] characteristics determined by the Surgical Pathology Department [facility]. ??It has not been cleared or approved by the [place]. [place]. Food and Drug Administration. Margareth Herrera DO LAB CYTOLOGY ORDERABLES Final Result Performing Organization Address City/State/[facility] Co de Phone Number PATHOLOGY [address] [place] [address] documented in this encounter Visit Diagnoses Diagnosis care, subsequent , second trimester 15 weeks gestation of Screen for sexually transmitted diseases Screening examination for venereal disease Screening for malignant neoplasm of cervix Screening for malignant neoplasm of the cervix documented in this encounter Care Teams Swedger Relationship Specialty Start Date End Date No, Physician PCP - General 03/09/23 documented as of this encounter
--- OUTSIDE RECORDS SUMMARY | 2024-10-15 15:45 | XMS_ITS | Encounter Summary ---
Author Organization [facility] Medical Group Address [address] [facility] [address] [place] [address] Care Team Providers Care Gifted Program Teacher Name Role Phone No, Physician Primary Care Provider [phone] Reason for Visit * Reason Comments Routine Visit Encounter Details Date Type Department Care Team (Late st Contact Info) Description 06/30/2023 11:30 AM CDT Office Visit [facility] [address] [place] [address] Margareth Herrera, DO [address] [place] [address] Encounter for supervision of other normal in [...] place to sleep or slept in a intermediate (including now)? No 04/14/2023 Comments Yes Sex [...] Sign Reading Time Taken Comments Blood Pressure 112/60 06/30/2023 1:21 PM CDT Pulse - - Temperature - - Respiratory Rate - - Oxygen Saturation - - Inhaled Oxygen Concentration - - Weight 79.9 kg (176 lb 3.2 oz) 06/30/2023 1:21 P M CDT Height - - Body Mass Index 29.32 03/23/2023 10:30 AM CDT documented in this encounter Progress Notes * Margareth Herrera DO - 06/30/2023 11:30 AM CDT Pt doing well with no complaints. Denies ctx, LOF, and VB. Feeling good movement. Her son hasbeen home sick from school so she has not been able to complete the 3 hour glucose test yet. She plans to go next week. Precautions given. RTC in 2 weeks. documented in this encounter Plan of Treatment Not on file documented as of this encounter Procedures Procedure Name Priority Date/Time Associated Diagnosis Comments POCT URINE GLUCOSE AND PROTEIN Routine 06/30/2023 11:37 AM CDT Encounter for supervision of other normal in third trimester documented in this encounter Results * POCT urine glucose and protein (06/30/2023 11:37 AM CDT) Glucose, ur, POC Negative Negative MG/DL Protein, ur, POC Negative Negative Lot Number [id number] Urine 06/30/2023 11:3 7 AM CDT Margareth Herrera DO POINT OF CARE TEST SANDRAHortencia CLEARYCAL Final Result documented in this encounter Visit Diagnoses Diagnosis Encounter for supervision of other normal in third trimester- Primary documented in this encounter Care Teams Gifted Program Teacher Relationship Specialty Start Date End Date No, Physician PCP - General 03/09/23 documented as of this encounter
--- OUTSIDE RECORDS SUMMARY | 2024-10-15 15:45 | XMS_ITS | Encounter Summary ---
Author Organization [facility] Medical Group Address [address] [facility] [address] [place] [address] Care Team Providers Care Recruitment And Outreach Assistant Name Role Phone No, Physician Primary Care Provider [phone] Reason for Visit * Reason Comments Routine Visit Encounter Details Date Type Department Care Team (Late st Contact Info) Description 07/17/2023 9:50 AM CDT Office Visit [facility] [address] [place] [phone] Margareth Herrera, DO [address] [place] [address] Encounter for supervision of other normal in third trimester (Primary Dx); Request for sterilization Social History Tobacco Use Types Packs/Day Years [...] place to sleep or slept in a penitentiary (including now)? No 04/14/2023 Comments Yes Sex [...] Sign Reading Time Taken Comments Blood Pressure 110/78 07/17/2023 9:45 AM CDT Pulse - - Temperature - - Respiratory Rate - - Oxygen Saturation - - Inhaled Oxygen Concentration - - Weight 78.5 kg (173 lb) 07/17/2023 9:45 AM CDT Height - - Body Mass Index 28.79 03/23/2023 10:30 AM CDT documented in this encounter Progress Notes * Margareth Herrera DO - 07/17/2023 9:50 AM CDT Pt doing well. Went to [place] last week for ctx and pelvic pressure and was told she is 1 cm, soft, and thin. Provided reassurance as pt is a multip. She reports continued pressure but no ctx, LOF,or VB. Appears comfortable today. She reports good movement. She state she would like to do atubal for contraception. We discussed this in detail. Would plan for TOLAC at 39 weeks with bilateral salpingectomy the following day. Discussed nature of the procedure, anticipated recovery, and surgical risks including anesthesia, infection, bleeding, possible blood transfusion, injury to adjacent organs including bowel, bladder, nerves, and blood vessels, blood clots, and even . Surgery scheduling form and Medicaid form filled out. Pt counseled she would have to do IVF if she wanted to get in the future. She voiced understanding and wishes to proceed. RTC in 2 weeks. * Elena Veliz LPN - 07/17/2023 9:50 AM CDT Attempted to educate patient on Benefits of . She states this is her 5 th and she is not going to breastfeed. documented in this encounter Plan of Treatment Not on file documented as of this encounter Procedures Procedure Name Priority Date/Time Associated Diagnosis Comments POCT URINE GLUCOSE AND PROTEIN Routine 07/17/2023 9:50 AM CDT Encounter for supervision of other normal in third trimester documented in this encounter Results * POCT urine glucose and protein (07/17/2023 9:50 AM CDT) Glucose, ur, POC Negative Negative MG/DL Protein, ur, POC Negative Negative Comment:n Lot Number [id number] Urine 07/17/2023 9:50 AM CDT us Margareth Herrera DO POINT OF CARE TEST YIMI CLEARYCAL Final Result documented in this encounter Visit Diagnoses Diagnosis Encounter for supervision of other normal in third trimester- Primary Request for sterilization documented in this encounter Care Teams Recruitment And Outreach Assistant Relationship Specialty Start Date End Date No, Physician PCP - General 03/09/23 documented as of this encounter
--- OUTSIDE RECORDS SUMMARY | 2024-10-15 15:45 | XMS_ITS | Encounter Summary ---
Author Organization [facility] Medical Group Address [address] [address] Care Team Providers Care Electronic Typesetting Machine Operator Name Role Phone No, Physician Primary Care Provider [phone] Encounter Details Date Type Department Care Team (Late st Contact Info) Description 06/16/2023 11:10 AM CDT Lab [facility] [address] [place] [phone] care, subsequent , third trimester (Primary Dx); 27 weeks gestation of Social History Tobacco Use [...] slept in a detention (including now)? No 04/14/2023 Comments Yes Sex [...] encounter Visit Diagnoses Diagnosis care, subsequent , third trimester- Primary 27 weeks gestation of documented in this encounter Care Teams Electronic Typesetting Machine Operator Relationship Specialty Start Date End Date No, Physician PCP - General 03/09/23 documented as of this encounter
--- OUTSIDE RECORDS SUMMARY | 2024-10-15 15:45 | XMS_ITS | Encounter Summary ---
Author Organization [facility] Medical [facility] Address [address] [facility] [address] [place] [address] Care Team Providers Care Tank Car Mechanic Name Role Phone No, Physician Primary Care Provider [phone] Reason for Visit * Reason Comments Routine Visit Encounter Details Date Type Department Care Team (Late st Contact Info) Description 06/16/2023 10:50 AM CDT Office Visit [facility] [address] [place] [phone] Margareth Herrera, DO [address] [place] [address] care, subsequent , second trimester (Primary Dx); Acute vaginitis Social History Tobacco Use Types Packs/Day Years [...] to sleep or slept in a senior care (including now)? No 04/14/2023 Comments Yes Sex [...] Sign Reading Time Taken Comments Blood Pressure 124/68 06/16/2023 10:19 AM CDT Pulse - - Temperature - - Respiratory Rate - - Oxygen Saturation - - Inhaled Oxygen Concentration - - Weight 78.7 kg (173 lb 9.6 oz) 06/16/2023 10:19 AM CDT Height - - Body Mass Index 28.89 03/23/2023 10:30 AM CDT documented in this encounter Progress Notes * Margareth Herrera DO - 06/16/2023 10:50 AM CDT Pt doing well. Denies ctx, LOF, and VB. Reports good movement. Had some vaginal itching/irritation a couple weeks ago along with yellow discharge. Used Monistat 3 with improvement but still having some mild itching. Vaginitis swab collected. 3rd trimester labs today. Tdap discussed and recommended but will have to go to [facility] due to insurance. Precautions given. RTC in 2 weeks. documented in this encounter Plan of Treatment Not on file documented as of this encounter Procedures Procedure Name Priority Date/Time Associated Diagnosis Comments POCT URINE GLUCOSE AND PROTEIN Routine 06/16/2023 10:13 AM CDT care, subsequent , second trimester documented in this encounter Results * (ABNORMAL) Vaginitis panel Vaginal (06/16/2023 4:30 PM CDT) [facility] Marley DNA probe Detected(A) Not Detected [facility] ARMENDARIZ Comment:Testing performed by : [facility], [address] [place] [address]., [id number] Gardnerella DNA probe Detected(A) Not Detected O[facility]AR ARMENDARIZ Comment:Testing performed by : [facility], [address] [place] [address]., [id number] Trichomonas DNA probe Not Detected Not Detected [facility] ARMENDARIZ Comment: Interpretive Data Testing performed by [facility] via Affirm VPIII Microbial Identification Test, a DNA probe test for use in the detection and identification of Marley species, Gardnerella vaginalis and Trichomonas vaginalis nucleic acid in vaginal fluid specimens from patients with symptoms of vaginitis/vaginosis. Negative results for these tests suggest the patient does not have candidiasis, bacterial vaginosis and/or trichomoniasis when consistent with clinical signs and symptoms. Current interpretive data was last revised on 2020. Testing performed by: [facility], [address] [place] [address]., [id number] Vaginal 06/16/2023 4:30 PM CDT 06/17/2023 2:00 PM CDT Margareth Herrera DO LAB MICROBIOLOGY - [facility] ORDERABLES Final Result [facility] [address] Department [place] [address] * (ABNORMAL) POCT urine glucose and protein (06/16/2023 10:13 AM CDT) [facility] Glucose, ur, POC Negative Negative MG/DL Protein, ur, POC 1+(A) Negative Lot Number [id number] Urine 06/16/2023 10:1 3 AM CDT Margareth Herrera DO POINT OF CARE TEST YIMI MACIAS Final Result documented in this encounter Visit Diagnoses Diagnosis care, subsequent , second trimester- Primary Acute vaginitis Unspecified vaginitis and vulvovaginitis documented in this encounter Care Teams Tank Car Mechanic Relationship Specialty Start Date End Date No, Physician PCP - General 03/09/23 documented as of this encounter
--- OUTSIDE RECORDS SUMMARY | 2024-10-15 15:45 | XMS_ITS | Encounter Summary ---
Author Organization [facility] Healthcare Address [address] [place] [address] Care Team Providers Care Crocheter Hand Name Role Phone No, Physician Primary Care Provider [phone] Encounter Details Date Type Department Care Team (Latest Contact Info) Description 06/16/2023 10:13 AM CDT - 06/16/2023 11:59 PM CDT Hospital Encounter [facility] [id number] [place] [address] Encounter for supervision of other normal in third trimester; 27 weeks gestation of ; Acute vaginitis Discharge Disposition: Discharge to home or self [...] place to sleep or slept in a retirement (including now)? No 04/14/2023 Comments Yes Sex and Gender Information Value Date Recorded Sex Assigned at Not on file Legal Sex Female 3:14 PM CDT Gender Identity Not on file Sexual Orientation Not on file Occupation Industry Job Start Date Job End Date None Not on file Not on file Not on file documented as of this encounter Medications at Time of Discharge docusate sodium (COLACE) 100 mg capsuleIndication s:constipation Take 1 capsule (100 mg total) by mouth 2 (two) times a day 60 capsule 2 05/15/2023 08/22/2023 polyethylene glycol (Miralax) 17 gram packetIndications :constipation Take 1 packet (17 g total) by mouth daily 30 packet 2 05/15/2023 08/22/2023 [id number] olic (Kosher Plus Iron) 30 mg iron- 1 mg tablet Take 1 tablet by mouth daily 03/06/2021 08/22/2023 documented as of this encounter Discharge Disposition Disposition Code Departure Means Destination Discharge to home or self care documented in this encounter Plan of Treatment Not on file documented as of this encounter Procedures Procedure Name Priority Date/Time Associated Diagnosis Comments VAGINITIS PANEL Routine 06/16/2023 4:30 PM CDT Acute vaginitis URINE CULTURE Routine 06/16/2023 3:58 PM CDT Encounter for supervision of other normal in third trimester 27 weeks gestation of DIFFERENTIAL AUTO Routine 06/16/2023 10: 41 AM CDT Encounter for supervision of other normal in third trimester 27 weeks gestation of GTT 50GM 1HR GESTATIONAL SCREEN Routine 06/16/2023 10:41 AM CDT Encounter for supervision of other normal in third trimester 27 weeks gestation of HIV 1/2 ANTIBODY PLUS P24 ANTIGEN Routine 06/16/2023 10:41 AM CDT Encounter for supervision of other normal in third trimester 27 weeks gestation of CBC WITH AUTO DIFFERENTIAL Routine 06/16/2023 10:41 AM CDT Encounter for supervision of other normal in third trimester 27 weeks gestation of documented in this encounter Results * (ABNORMAL) Vaginitis panel Vaginal (06/16/2023 4:30 PM CDT) Marley DNA probe Detected(A) Not Detected OSCAR ARMENDARIZ Comment:Testing performed by : [facility], [address] [place] [address]., [id number] Gardnerella DNA probe Detected(A) Not Detected OSCAR ARMENDARIZ Comment:Testing performed by : [facility], [address] [place] [address]., [id number] Trichomonas DNA probe Not Detected Not Detected OSCAR ARMENDARIZ Comment: Interpretive Data Testing performed by [facility] via Affirm VPIII Microbial Identification Test, a [...] last revised on 2020. Testing performed by: [facility], [address] [place] [address]., [id number] Vaginal 06/16/2023 4:30 PM CDT 06/17/2023 2:00 PM CDT us Margareth Herrera DO LAB MICROBIOLOGY - [facility]ENE [facility] ORDERABLES Final Result [facility]SCAR ARMENDARIZ [address] [address] Department [place] [address] * Urine culture Urine, clean voided (06/16/2023 3:58 PM CDT) Report Final Report: Growth indicative of contamination with periurethral shekhar. Please submit a new specimen with special attention given to the collection process and to prompt transport to the laboratory. [facility]SCAR Comment:Testing performed by : [facility], [address] [place]., [address] Organism GROWTH INDICATES CONTAM WITH PERIURETHRAL SHEKHAR. [facility] Urine, clean voided 06/16/2023 3:58 PM CDT 06/16/2023 10:43 PM CDT Narrative [facility] - 06/18/2023 11:15 AM CDT Testing performed by [facility] Microbiology Laboratory ([phone]) Hannah Pop MD LAB MICROBIOLOGY - [facility] ORDERABLES Final Result [facility] [address] Department [place] [address] * (ABNORMAL) Differential, auto (06/16/2023 10:41 AM CDT) Neutrophil abs 6.8(H) 1.7 - 6.5 K/cumm [facility] Imm gran abs 0.0 0.0 - 0.1 K/cumm [facility] Lymphocyte abs 1.6 0.8 - 3.3 K/cumm [facility] Monocyte abs 0.5 0.2 - 0.8 K/cumm [facility] Eosinophil abs 0.2 0.0 - 0.5 K/cumm [facility] Basophil abs 0.0 0.0 - 0.1 K/cumm [facility] Neutrophil pct 74.6 % [facility] Comment: Interpretive Data Percent cell count reference ranges are not reported, since discordance with absolute values may lead to misinterpretation of CBC data. Current Interpretive Data was last revised on 2018. Imm gran pct 0.4 % [facility] Comment: Interpretive Data Percent cell count reference ranges are not reported, since discordance with absolute values may lead to misinterpretation of CBC data. Current Interpretive Data was last revised on 2018. Lymphocyte pct 17.2 % [facility] Comment: Interpretive Data Percent cell count reference ranges are not reported, since discordance with absolute values may lead to misinterpretation of CBC data. Current Interpretive Data was last revised on 2018. Monocyte pct 5.3 % [facility] Comment: Interpretive Data Percent cell count reference ranges are not reported, since discordance with absolute values may lead to misinterpretation of CBC data. Current Interpretive Data was last revised on 2018. Eosinophil pct 2.2 % [facility] Comment: Interpretive Data Percent cell count reference ranges are not reported, since discordance with absolute values may lead to misinterpretation of CBC data. Current Interpretive Data was last revised on 2018. Basophil pct 0.3 % [facility] Comment: Interpretive Data Percent cell count reference ranges are not reported, since discordance with absolute values may lead to misinterpretation of CBC data. Current Interpretive Data was last revised on 2018. Blood 06/16/2023 10:4 1 AM CDT 06/16/2023 6:47 PM CDT Hannah Pop MD LAB BLOOD ORDERABLES Final Result Performing Organization Address City/[facility]/ZIP Co de Phone Number [facility] [id number] [address] Department [place] [address] * HIV 1/2 Antibody plus p24 Antigen Blood (06/16/2023 10:41 AM CDT) HIV 1/2 ab + p24 ag Nonreactive Nonreactive [facility] Comment: Nonreactive for HIV-1 antigen and HIV-1/HIV-2 antibodies. No laboratory evidence of HIV infection. If acute HIV infection is suspected, consider testing for HIV-1 RNA. Blood 06/16/2023 10:4 1 AM CDT 06/16/2023 6:47 PM CDT Hannah Pop MD LAB MICROBIOLOGY - GE NERAL ORDERABLES Final Result [facility] [address] [place] [address] * (ABNORMAL) CBC with auto differential (06/16/2023 10:41 AM CDT) WBC 9.2 3.8 - 9.9 K/cumm [facility] Hgb 11.4(L) 11.9 - 15.5 g/dL [facility] Hct 35.0(L) 35.6 - 45.5 % [facility] Plt 255 150 - 400 K/cumm [facility] MPV 9.9 9.1 - 12.3 fL [facility] RBC 3.77(L) 3.90 - 5.20 M/cumm [facility] MCV 92.8 81.3 - 96.4 fL [facility] MCH 30.2 27.1 - 33.3 pg [facility] MCHC 32.6 32.3 - 35.7 g/dL [facility] RDW CV 12.7 11.1 - 14.9 % [facility] RDW SD 43.6 35.7 - 48.1 fL [facility] NRBC abs 0.00 0.00 - 0.01 K/cumm [facility] Blood 06/16/2023 10:4 1 AM CDT 06/16/2023 6:47 PM CDT Hannah Pop MD LAB BLOOD ORDERABLES Final Result [facility] [address] Department [place] [address] * Glucose tolerance testing 50 gram gestational screen (06/16/2023 10:41 AM CDT) GTT 50g gest screen 137 <=140 mg/dL [facility] Comment: Interpretive Data Used for suspected gestational diabetes. The screening test uses 50 grams of glucose with sample obtained 1 hr later. Normal range: < 140 mg/dL. A glucose value of >140 mg/dL generally indicates the need for a full diagnostic tolerance test. Reference Interval Info: Diabetes Care 2005, Vol 28. Supplement 1,S37-S42. Report of the Expert Committee on the Diagnosis and Classification of Diabetes Mellitus. Diabetes Care 2020; 43(Supplement 1):S14-31. Current interpretive data was last revised on 2020. Blood 06/16/2023 10:4 1 AM CDT 06/16/2023 6:47 PM CDT us Hannah Pop MD LAB BLOOD ORDERABLES Final Result [facility] [address] Department of Laboratories [place], [place] [id number] documented in this encounter Visit Diagnoses Diagnosis Encounter for supervision of other normal in third trimester 27 weeks gestation of Acute vaginitis Unspecified vaginitis and vulvovaginitis documented in this encounter Care Teams Crocheter Hand Relationship Specialty Start Date End Date No, Physician PCP - General 03/09/23 documented as of this encounter
--- OUTSIDE RECORDS SUMMARY | 2024-10-15 15:45 | XMS_ITS | Encounter Summary ---
Author Organization [facility] Medical Group Address [address] [address] Care Team Providers Care Tavern Keeper Name Role Phone No, Physician Primary Care Provider [phone] Reason for Referral * Diagnostic Imaging (Routine) - Closed Specialty Diagnoses / Procedures Referred By Lenora t Referred To Contact Diagnoses Encounter for maternal care for excessive growth in second trimester, single or unspecified fetus 20 weeks gestation of Procedures US Ob 14 Weeks Or Over Margareth Herrera DO [address] [address] Phone: tel: fax: [facility] Referral ID Status Reason Start Date Expiration Date Visits Re quested Visits Authorized [id number] Closed 04/14/2023 05/13/2024 1 1 Encounter Details Date Type Department Care Team (Late st Contact Info) Description 04/14/2023 2:30 PM CDT Office Visit [facility] [address] [place] [phone] Margareth Herrera DO [address] [address] care, subsequent , second trimester (Primary Dx); Encounter for maternal care for excessive growth in second trimester, single or unspecified fetus; 20 weeks gestation of Social History Tobacco Use [...] as of this encounter Progress Notes * Margareth Herrera DO - 04/14/2023 2:30 PM CDT Pt doing well. Denies ctx, LOF, or VB. Reports some movement. Struggling with sciatica. Has apregnancy support belt but hasn't tried it. Recommend sciatica stretches and chiropractor as well. Anatomy US ordered for 2 weeks. Precautions given. RTC in 4 weeks. documented in this encounter Plan of Treatment Not on file documented as of this encounter Results * US Ob 14 Weeks Or Over (04/27/2023 3:18 PM CDT) Anatomical Region Laterality Modality Abdomen N/A Ultrasound Impressions 04/27/2023 3:48 PM CDT 1. ?? Single intrauterine identified with a vertex lie. ?? Estimated gestational age is 19 weeks and 5 days . ??SRINIVASA is 09/16/2023. ?? Visualized anatomy is within normal limits. 2. There is normal growth as compared to prior study of 03/23/2023. Narrative 04/27/2023 3:48 PM CDT OB ULTRASOUND 14 Weeks or Over: number single SRINIVASA by LMP single 09/11/2023 SRINIVASA by this ultrasound 09/16/2023 Gestational Age by LMP 20 weeks 3 days weeks/days Gestational Age by this ultrasound 19 weeks 5 days weeks/days EFW 321 grams GP 20 % Placenta location posterior Previa No Presentation vertex Fluid/AYUSH 10.5 cm AYUSH Range 9.3-21.2 cm HR 148 bpm Body Movement Seen Yes ANATOMY: 4 Chamber Heart ??Normal or Seen Previously Stomach ??Normal or Seen Previously Bladder ??Normal or Seen Previously Kidneys ??Normal or Seen Previously C, T, L, Spines Normal or Seen Previously Cord Insertion ??Normal or Seen Previously 3 Vessel Cord ??Normal or Seen Previously Cisterna Magna Normal or Seen Previously Cerebellum ??Normal or Seen Previously Lateral Ventricles Normal or Seen Previously Diaphragm ??Normal or Seen Previously Upper Extremities Normal or Seen Previously Lower Extremities Normal or Seen Previously Measurements: BPD 4.6 cm (19 weeks 5 days weeks/days) HC 17.5 cm (20 weeks weeks/days) AC 14.1 cm (19 weeks 3 days weeks/days) FL 3.3 cm (20 weeks 3 days weeks/days) Sex female us Margareth Herrera DO IMG OB US PROCEDURES Fi nal Result documented in this encounter Visit Diagnoses Diagnosis care, subsequent , second trimester- Primary Encounter for maternal care for excessive growth in second trimester, single or unspecified fetus 20 weeks gestation of Encounter for maternal care for excessive growth in second trimester, single or unspecified fetus 20 weeks gestation of documented in this encounter Care Teams Tavern Keeper Relationship Specialty Start Date End Date No, Physician PCP - General 03/09/23 documented as of this encounter
--- OUTSIDE RECORDS SUMMARY | 2024-10-15 15:45 | XMS_ITS | Encounter Summary ---
Author Organization [facility] Address [address] [place] [address] Care Team Providers Care Convict Guard Name Role Phone No, Physician Primary Care Provider [phone] Reason for Visit * Diagnostic Imaging (Routine) - Closed Specialty Diagnoses / Procedures Referred By Lenora pacheco Referred To Contact Diagnoses Encounter to determine viability of , single or unspecified fetus 15 weeks gestation of Procedures US OB 14 Weeks Or Over US Ob Under 14 Weeks Margareth Herrera, DO [address] [place] [address] Phone: tel: fax: [facility] Referral ID Status Reason Start Date Expiration Date Visits Re quested Visits Authorized [id number] Closed 03/09/2023 04/07/2024 1 1 Encounter Details Date Type Department Care Team (Latest Contact Info) Description 03/23/2023 9:10 AM CDT Ancillary Procedure [facility] [address] [facility] [place] [address] Encounter to determine viability of , single or unspecified fetus; 15 weeks gestation of Social History Tobacco [...] Priority Date/Time Associated Diagnosis Comments US OB 14 WEEKS OR OVER Schedule Routine, Read Routine (OP Routine) 03/23/2023 10:09 AM CDT Encounter to determine viability of , single or unspecified fetus 15 weeks gestation of documented in this encounter Results * US OB 14 Weeks Or Over (03/23/2023 10:09 AM CDT) Anatomical Region Laterality Modality Abdomen N/A Ultrasound Impressions 03/23/2023 3:41 PM CDT 1. ?? Single intrauterine identified with a breech lie. ?? Estimated gestational age is 15 weeks and 3 days. ??SRINIVASA is 09/11/2023. ?? 2. There is poor visualization of anatomy secondary to early gestation. ?? anatomy screen may be considered in approximately 1 month. ?? 3. Growth percentile is noted to be in the 5th percentile. ?? growth should be re-evaluated with the anatomy screen to exclude growth retardation. Narrative 03/23/2023 3:41 PM CDT OB ULTRASOUND 14 Weeks or Over: number single SRINIVASA by LMP 09/08/2023 SRINIVASA by this ultrasound 09/11/2023 Gestational Age by LMP 15 weeks and 0 days weeks/days Gestational Age by this ultrasound 15 weeks and 3 days weeks/days EFW 111 grams GP 5 % Placenta location posterior Placenta is poorly seen secondary to early gestation Presentation breech HR 145 bpm Body Movement Seen Yes Measurements: BPD 2.9 cm (15 weeks 2 days weeks/days) HC 11.4 cm (15 weeks 4 days weeks/days) AC 8.4 cm (14 weeks 5 days weeks/days) FL 1.7 cm (15 weeks 1 day weeks/days) Additional findings: Right and left ovaries measure 2.3 x 2.2 x 2.0 cm and 2.9 x 1.5 x 2.3 cm in size respectively. ??There appears to be small subchronic hemorrhage measuring 1.9 x 1.1 x 1.4 cm. us Margareth Herrera DO IMG OB US PROCEDURES Fi nal Result documented in this encounter Visit Diagnoses Diagnosis Encounter to determine viability of , single or unspecified fetus 15 weeks gestation of documented in this encounter Care Teams Convict Guard Relationship Specialty Start Date End Date No, Physician PCP - General 03/09/23 documented as of this encounter
--- OUTSIDE RECORDS SUMMARY | 2024-10-15 15:45 | XMS_ITS | Encounter Summary ---
Author Organization [facility] Address [address] [place] [address] Care Team Providers Care Evp Name Role Phone No, Physician Primary Care Provider [phone] Encounter Details Date Type Department Care Team (Late st Contact Info) Description 05/03/2023 Telephone [facility] [address] [place] [address] Denise Venegas Social History Tobacco Use Types Packs/Day Years [...] place to sleep or slept in a longterm (including now)? No 04/14/2023 Comments Yes Sex [...] * Telephone Encounter - Denise Venegas - 05/03/2023 1:32 PM CDT LMOM to return call. * Telephone Encounter - Denise Venegas - 05/03/2023 1:32 PM CDT ----- Message from Margareth Herrera DO sent at 05/03/2023 11:33 AM CDT ----- Please inform the patient her anatomy ultrasound was normal. documented in this encounter Plan of Treatment Not on file documented as of this encounter Visit Diagnoses Not on filedocumented in this encounter Care Teams Evp Relationship Specialty Start Date End Date No, Physician PCP - General 03/09/23 documented as of this encounter
--- OUTSIDE RECORDS SUMMARY | 2024-10-15 15:45 | XMS_ITS | Encounter Summary ---
Author Organization [facility] Address [address] [facility] [address] [place] [address] Care Team Providers Care Literature Teacher Name Role Phone No, Physician Primary Care Provider [phone] Reason for Visit * Diagnostic Imaging (Routine) - Closed Specialty Diagnoses / Procedures Referred By Lenora pacheco Referred To Contact Diagnoses Encounter for maternal care for excessive growth in second trimester, single or unspecified fetus 20 weeks gestation of Procedures US Ob 14 Weeks Or Over Margareth Herrera, DO [address] [place] [address] Phone: tel: fax: [facility] Referral ID Status Reason Start Date Expiration Date Visits Re quested Visits Authorized [id number] Closed 04/14/2023 05/13/2024 1 1 Encounter Details Date Type Department Care Team (Latest Contact Info) Description 04/27/2023 2:40 PM CDT Ancillary Procedure [facility] [address] [place] [id number] Encounter for maternal care for excessive growth [...] OVER Schedule Routine, Read Routine (OP Routine) 04/27/2023 3:18 PM CDT Encounter for maternal care for excessive growth in second trimester, single or unspecified fetus 20 weeks gestation of documented in this encounter Results * US Ob 14 [...] this encounter Visit Diagnoses Diagnosis Encounter for maternal care for excessive growth in second trimester, single or unspecified fetus 20 weeks gestation of documented in this encounter Care Teams Literature Teacher Relationship Specialty Start Date End Date No, Physician PCP - General 03/09/23 documented as of this encounter
--- OUTSIDE RECORDS SUMMARY | 2024-10-15 15:45 | XMS_ITS | Encounter Summary ---
Author Organization [facility] Address [address] [place] [address] Care Team Providers Care Faceter Name Role Phone No, Physician Primary Care Provider [phone] Encounter Details Date Type Department Care Team (Late st Contact Info) Description 05/15/2023 Orders Only [facility] [address] [place] [address] Hannah Pop MD [address] [place] [address] Encounter for supervision of other normal in third trimester (Primary Dx); 27 weeks gestation [...] place to sleep or slept in a mcfp (including now)? No 04/14/2023 Comments Yes Sex [...] documented as of this encounter Results * Urine culture Urine, clean voided (06/16/2023 3:58 PM CDT) Report Final Report: Growth indicative of contamination with periurethral shekhar. Please submit a new specimen with special attention given to the collection process and to prompt transport to the laboratory. OSCAR ARMENDARIZ Comment:Testing performed by : [facility], [address] [place] [address] Organism GROWTH INDICATES CONTAM WITH PERIURETHRAL SHEKHAR. OSCAR ARMENDARIZ Urine, clean voided 06/16/2023 3:58 PM CDT 06/16/2023 10:43 PM CDT Narrative OSCAR ARMENDARIZ - 06/18/2023 11:15 AM CDT Testing performed by [facility] ([phone]) us Hannah Pop MD LAB MICROBIOLOGY - NERAL ORDERABLES Final Result OSCAR ARMENDARIZ [address] Department [place] [address] * HIV 1/2 Antibody plus p24 Antigen Blood (06/16/2023 10:41 AM CDT) HIV 1/2 ab + p24 ag Nonreactive Nonreactive [facility] ARMENDARIZ Comment: Nonreactive for HIV-1 antigen and HIV-1/HIV-2 antibodies. No laboratory evidence of HIV infection. If acute HIV infection is suspected, consider testing for HIV-1 RNA. Blood 06/16/2023 10:4 1 AM CDT 06/16/2023 6:47 PM CDT Hannah Pop MD LAB MICROBIOLOGY - NERAL ORDERABLES Final Result Performing Organization Address [facility] de Phone Number FERNANDOTYREL ARMENDARIZ [address] Department [place] [address] * Glucose tolerance testing 50 gram gestational screen (06/16/2023 10:41 AM CDT) GTT 50g gest screen 137 <=140 mg/dL OSCAR Comment: Interpretive Data Used for suspected gestational [...] BLOOD ORDERABLES Final Result Performing Organization Address [facility] de Phone Number FERNANDOTYREL ARMENDARIZ [address] [address] Department [place] [address] * (ABNORMAL) CBC with auto differential (06/16/2023 10:41 AM CDT) WBC 9.2 3.8 - 9.9 K/cumm [facility] Hgb 11.4(L) 11.9 - 15.5 g/dL [facility] Hct 35.0(L) 35.6 - 45.5 % [facility] Plt 255 150 - 400 K/cumm [facility] MPV 9.9 9.1 - 12.3 fL [facility] RBC 3.77(L) 3.90 - 5.20 M/cumm [facility] MCV 92.8 81.3 - 96.4 fL [facility] MCH 30.2 27.1 - 33.3 pg [facility] MCHC 32.6 32.3 - 35.7 g/dL [facility] RDW CV 12.7 11.1 - 14.9 % [facility] RDW SD 43.6 35.7 - 48.1 fL [facility] NRBC abs 0.00 0.00 - 0.01 K/cumm [facility] Blood 06/16/2023 10:4 1 AM CDT 06/16/2023 6:47 PM CDT us Hannah Pop MD LAB BLOOD ORDERABLES Final Result [facility] [address] [address] Department of Laboratories [place] [phone] documented in this encounter Visit Diagnoses Diagnosis Encounter for supervision of other normal in third trimester- Primary 27 weeks gestation of Encounter for supervision of other normal in third trimester 27 weeks gestation of Acute vaginitis Unspecified vaginitis and vulvovaginitis documented in this encounter Care Teams Faceter Relationship Specialty Start Date End Date No, Physician PCP - General 03/09/23 documented as of this encounter
--- OUTSIDE RECORDS SUMMARY | 2024-10-15 15:45 | XMS_ITS | Encounter Summary ---
Author Organization [facility] Address [address] [place] [address] Care Team Providers Care Heat And Vent Aircraft Mechanic Name Role Phone No, Physician Primary Care Provider Encounter Details Date Type Department Care Team (Late st Contact Info) Description 04/10/2023 Documentation [facility] [address] [place] [address] Margareth Herrera DO [address] [place] [address] Social History Tobacco Use Types Packs/Day Years [...] Progress Notes * Margareth Herrera DO - 04/10/2023 1:42 PM CDT Operative report from prior received. Low transverse section for SROM at 37 weeks due to recent HSV outbreak (note states outbreak was the week prior to SROM). documented in this encounter Plan of Treatment Not on file documented as of this encounter Visit Diagnoses Not on filedocumented in this encounter Care Teams Heat And Vent Aircraft Mechanic Relationship Specialty Start Date End Date No, Physician PCP - General 03/09/23 documented as of this encounter
--- OUTSIDE RECORDS SUMMARY | 2024-10-15 15:45 | XMS_ITS | Encounter Summary ---
Author Organization [facility] Address [address] [address] Care Team Providers Care Retail Greeter Name Role Phone No, Physician Primary Care Provider [phone] Reason for Visit * Reason Comments New Patient Initial Visit Encounter Details Date Type Department Care Team (Late st Contact Info) Description 03/23/2023 10:10 AM CDT Office Visit [facility] [address] [place] [address] Margareth Herrera, DO [address] [place] [address] care, subsequent , second trimester (Primary Dx); 15 weeks gestation of ; Screening for malignant neoplasm of cervix; Screen for sexually transmitted diseases Social History Tobacco Use Types Packs/Day Years Used Date Smoking Tobacco: Every Day Vaping Smokeless Tobacco: Never Tobacco Cessation:Ready to Q uit: Not Asked; Counseling Given: Not Answered Comments Yes Sex and Gender Information Value [...] Reading Time Taken Comments Blood Pressure 112/60 03/23/2023 10:30 AM CDT Pulse - - Temperature - - Respiratory Rate - - Oxygen Saturation - - Inhaled Oxygen Concentration - - Weight 73.5 kg (162 lb) 03/23/2023 10:30 AM CDT Height 165.1 cm (5' 5 ) 03/23/2023 10:30 AM CDT Body Mass Index 26.96 03/23/2023 10:30 AM CDT documented in this encounter Progress Notes * Margareth Herrera, DO - 03/23/2023 10:10 AM CDT Initial OB Visit Subjective: Hannah Luis is a 27 y.o., at 15w3d, based on 2nd trimester U/S today, who presents for initial visit. Past 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 CS in G4 with in G5. PPROM at 32 weeks in G5 with delivery at 34 weeks. She denies any issues so far this . Menstrual History: Patient's last menstrual period was 12/02/2022 (exact date). Sexual History: OB History 6 Para 4 Term 3 1 AB 1 Living 4 SAB 1 IAB Ectopic Multiple Live Births 4 # Outcome Date GA Labor/2nd Weight Sex Delivery Anes PTL Lv A1 A5 1 SAB 10/2008 2 Term 03/19/13 40w0d 3.6 kg (7 lb 15 oz) M Vag-Spont Living 3 Term 02/19/16 40w0d 2.977 kg (6 lb 9 oz) M Vag-Spont Living 4 Term 06/14/ 40w0d 2.778 kg (6 lb 2 oz) M CS-Unspec Living 5 03/04/21 34w0d / 0h 13m 2.214 kg (4 lb 14.1 oz) M Vag-Spont Epidural Y Living 9 9 Name: LASHANDA,BABY BOY HANNAH Location: Other Delivering Clinician: Chelsie Astorga MD 6 Current Past medical, surgical, and FLIGHT DECK OFFICER 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 Review of Systems Constitutional: Negative for chills and fever. HENT: Negative for hearing loss. Respiratory: Negative for cough and shortness of breath. Cardiovascular: Negative for chest pain and palpitations. Gastrointestinal: Negative for nausea and vomiting. Genitourinary: Negative for dysuria. Skin: Negative for rash. Neurological: Negative for headaches. Psychiatric/Behavioral: Negative for substance abuse. Objective: BP 112/60 Ht 165.1 cm (5' 5 ) Wt 162 lb (73.5 kg) LMP 12/02/2022 (Exact Date) BMI 26.96 kg/m?? Physical OB Exam: Last filed by Margareth Herrera DO on 03/23/2023 1:35 PM General Physical Exam HEENT: normal Heart: normal Skin: normal Lungs: normal Extremities: normal Neurological: normal Abdomen: normal Pelvic Exam Vulva: normal Vagina: normal Cervix: normal Adnexa: normal Rectum: normal Spines: average Subpubic Arch: normal Pelvic Type: gynecoid Assessment: Patient is a 27 y.o., at 15w3d, with a rea confirmed on U/S today. Problem list reviewed and updated: Problems (from 03/23/23 to present) Problem Noted Resolved Encounter for supervision of normal in second trimester 03/23/2023 by Margareth Herrera DO No Overview Signed 03/23/2023 1:30 PM by Margareth Herrera DO Dated by 15w3d PNL: ordered today GC/CT: collected today UCx: ordered today Pap: collected today Genetics: ordered today MOF/MOC: to be addressed at a later visit History of 03/23/2023 by Margareth Herrera DO No Overview Signed 03/23/2023 1:33 PM by Margareth Herrera DO In G3. Pt states she believes it was for breech but notes from last say it was for HSV outbreak. Operative report requested. Pt had a successful in G4 and desires to TOLAC. She was counseled today. Risk of uterine rupture quoted as <1% if she had a LTCS. She was counseled on the limitations of our [facility] and that can not guarantee the electrical controls engineer OB will offer a TOLAC if she labors and I am not available. HSV (herpes simplex virus) anogenital infection 03/23/2023 by Margareth Herrera DO No Overview Signed 03/23/2023 1:33 PM by Margareth Herrera DO Pt reports last outbreak was years ago. Will plan for prophylaxis in 3rd trimester. History of premature rupture of membranes (PPROM) 03/23/2023 by Margareth Herrera DO No Overview Signed 03/23/2023 1:34 PM by Margareth Herrera DO In last at 32 weeks. Counseled pt that we often do not know why PPROM occurs. Will plan for cervical length with anatomy US. Marijuana use 03/23/2023 by Margareth Herrera DO No Overview Signed 03/23/2023 1:35 PM by Margareth Herrera DO Cessation encouraged. Pt states she is working on quitting. Plan: vitamin with DHA discussed Labs ordered Discussed genetic testing - patient plans Quad Additional concerns: none Follow up in 4 weeks. Margareth Herrera DO 03/23/2023 documented in this encounter Plan of Treatment Scheduled Orders Name Type Priority Associated Diagnoses Orde r Schedule Alpha fetoprotein, quad screen Lab Routine care, subsequent , second trimester 15 weeks gestation of Expected: 03/23/2023, Expires: 03/23/2024 documented as of this encounter Results * N. gonorrhoeae/C. trachomatis Amplification Thin prep (03/23/2023 11:20 AM CDT) C. trachomatis Not detected Not detected [facility] ARMENDARIZ N. gonorrhoeae Not detected Not detected [facility] ARMENDARIZ Comment: Testing performed by the [facility]. This assay detects Chlamydia trachomatis and [...] GENE RAL ORDERABLES Final Result [facility] ARMENDARIZ [address] Department [place] [address] * (ABNORMAL) Varicella Zoster IgG antibody Blood (03/23/2023 11:20 AM CDT) VZV IgG Nonreacti ve(A) Reactive [facility] Comment: Non-reactive: No detectable antibody to Varicella-zoster virus.??Such individuals are presumed to be uninfected and to be susceptible to primary infection. Testing performed by: [facility], [address] [place]., [address] Blood 03/23/2023 11:2 0 AM CDT 03/24/2023 12:51 PM CDT Margareth Herrera DO LAB MICROBIOLOGY - GENE RAL ORDERABLES Final Result Performing Organization Address [facility] Co de Phone Number [facility] [address] [address] [place] [address] * Urine culture Urine, clean voided (03/23/2023 11:20 AM CDT) Report Final Report: Less than 100,000 colonies/mL (clinically insignificant growth based on current clinical standards) [facility] Comment:Testing performed by : [facility], [address] [facility], [place]., [address] Organism (CLINICALLY INSIGNIFICANT GROWTH CERNER Urine, clean voided 03/23/2023 11:20 AM CDT 03/23/2023 9:05 PM CDT Narrative [facility] - 03/25/2023 5:16 AM CDT Testing performed by [facility] Microbiology Laboratory ([phone]) Margareth Herrera DO LAB MICROBIOLOGY - GENE RAL ORDERABLES Final Result Performing Organization Address [facility] Co de Phone Number [facility] [address] [address] [place] [address] * Type and screen (03/23/2023 11:20 AM CDT) Rinku, indirect Negative [facility]ER CH ABO Rh B Positive [facility] Blood 03/23/2023 11:2 0 AM CDT 03/23/2023 5:36 PM CDT Narrative [facility] - 03/23/2023 7:02 PM CDT Has the patient had Daratumumab or Isatuximab in the past 6 months?->Unknown Margareth Herrera LAB BLOOD BANK TEST ORD ERABLES Final Result Performing Organization Address City/[facility]/ZIP Co de Phone Number [facility] [address] [address] Department of [place], [place] [id number] * Rubella IgG antibody (03/23/2023 11:20 AM CDT) Rubella IgG Reactive [facility] Comment: Reactive: Results suggest response to immunization or prior exposure to the virus. Testing performed by: [facility], [address] [place]., [address] Blood 03/23/2023 11:2 0 AM CDT 03/24/2023 12:51 PM CDT Margareth Herrera LAB MICROBIOLOGY - GENE RAL ORDERABLES Final Result Performing Organization Address City/[facility]/ZIP Co de Phone Number [facility] [address] [address] [place] [address] * RPR Blood (03/23/2023 11:20 AM CDT) RPR Nonreactive Nonreactive [facility] Blood 03/23/2023 11:2 0 AM CDT 03/23/2023 5:32 PM CDT Margareth Herrera LAB MICROBIOLOGY - GENE RAL ORDERABLES Final Result [facility] [address] [address] [place] [address] * HIV 1/2 Antibody plus p24 Antigen Blood (03/23/2023 11:20 AM CDT) HIV 1/2 ab + p24 ag Nonreactive Nonreactive [facility] Comment: Nonreactive for HIV-1 antigen and HIV-1/HIV-2 antibodies. No laboratory evidence of HIV infection. If acute HIV infection is suspected, consider testing for HIV-1 RNA. Blood 03/23/2023 11:2 0 AM CDT 03/23/2023 5:32 PM CDT us Margareth Herrera DO LAB MICROBIOLOGY - GENE RAL ORDERABLES Final Result Performing Organization Address [facility] Phone Number [facility] [address] [address] [facility] [place] [address] * Hepatitis C antibody (03/23/2023 11:20 AM CDT) Hep C Ab Nonreactive Nonreactive [facility] Comment: Interpretive Data Nonreactive: Antibodies to HCV [...] Edited Result - Final Performing Organization Address [facility] de Phone Number [facility] [address] [address] [facility] [place] [address] * Hepatitis B Surface Antigen (03/23/2023 11:20 AM CDT) HepBsAg Nonreactive Nonreactive [facility] Blood 03/23/2023 11:2 0 AM CDT 03/23/2023 5:32 PM CDT Margareth Herrera DO LAB MICROBIOLOGY - GENE RAL ORDERABLES Final Result Performing Organization Address [facility] Phone Number [facility] [address] Department [place] [address] * (ABNORMAL) Drugs of Abuse Screen, Urine without Confirmation (03/23/2023 11:20 AM CDT) Pathologist [facility] Amphetamine, ur Not Detected CutOff 500ng/mL [facility] Comment: Interpretive Data - Amphetamines: ??Samples containing greater than 500 ng/mL d-methamphetamine ??or other cross-reacting amphetamine compounds are reported as positive. ??Amphetamine immunoassays are subject to significant false positive rates due to cross-reactivity of non-amphetamine drugs. Current Interpretive Data was last reviewed 2018. Barbiturates, ur Not Detected CutOff 200ng/mL [facility] Comment: Interpretive Data - Barbiturates: ??Samples containing greater than 200 ng/mL secobarbital or other cross-reacting barbiturate compounds are reported as positive. ??False positive and false negative results are possible. Current Interpretive Data was last reviewed 2018. Benzodiazepines, ur Not Detected CutOff 100ng/mL [facility] Comment: Interpretive Data - Benzodiazepines: ??Samples containing greater than 100 ng/mL nordiazepam or other cross-reacting compounds are reported as positive. ?? False positive and false negative results are possible. ?? Current Interpretive Data was last reviewed 2018. Cannabinoids, ur Detected(A) CutOff 50 ng/mL [facility] Comment: Interpretive Data - Cannabinoids: ??Samples containing greater than 50 ng/mL delta-9 THC -COOH or other cross-reacting compounds are reported as positive. ??False positive and false negative results are possible. ?? Current Interpretive Data was last reviewed 2018. Cocaine, ur Not Detected CutOff 150ng/mL [facility] Comment: Interpretive Data - Cocaine: ??Samples containing greater than 150 ng/mL benzoylecgonine or other cross-reacting compounds are reported as positive. False positive and false negative results are possible. Current Interpretive Data was last reviewed 2018. Fentanyl, Ur Not Detected Cutoff 1 ng/mL [facility] Comment: Interpretive Data - Fentanyls: ??Samples containing greater than 1 ng/mL fentanyl or other cross-reacting fentanyl compounds are reported as detected. ??False positive and false negative results are possible. Current Interpretive Data was last reviewed 2019. Methadone, ur Not Detected CutOff 300ng/mL [facility] Comment: Interpretive Data - Methadone: ??Samples containing [...] DO LAB URINE ORDERABLES Fi nal Result [facility] [address] [facility] [place] [address] * CBC with auto differential (03/23/2023 11:20 AM CDT) WBC 8.1 3.8 - 9.9 K/cumm [facility] Hgb 11.9 11.9 - 15.5 g/dL [facility] Hct 35.9 35.6 - 45.5 % [facility] Plt 273 150 - 400 K/cumm [facility] MPV 10.1 9.1 - 12.3 fL [facility] RBC 4.04 3.90 - 5.20 M/cumm [facility] MCV 88.9 81.3 - 96.4 fL [facility] MCH 29.5 27.1 - 33.3 pg [facility] MCHC 33.1 32.3 - 35.7 g/dL [facility] RDW CV 13.7 11.1 - 14.9 % [facility] RDW SD 45.0 35.7 - 48.1 fL [facility] NRBC abs 0.00 0.00 - 0.01 K/cumm [facility] Blood 03/23/2023 11:2 0 AM CDT 03/23/2023 5:32 PM CDT Margareth Herrera DO LAB BLOOD ORDERABLES Fi nal Result [address] [place] [address] * Pap with reflex to High Risk HPV (03/23/2023 8:02 AM CDT) Thin prep (Pap test) 03/23/2023 8:02 AM CDT 03/23/2023 8:02 AM CDT Narrative PATHOLOGY [facility] - 03/28/2023 1:21 PM CDT [facility] Department of Pathology [address] [place] [address] Final Report Note to Patients: This report [...] and explain the details. Patient Name: ??HANNAH LUIS Address: ??[address], ?? [place], [place] ?? Gender: ??F : ??1995 (Age: 27) Service: ?? Location: ?? Hospital #: ??[id number] Patient Type: ?? SPECIMEN Taken: ??03/23/2023 Received: ??03/23/2023 Accessioned:: ??03/24/2023 Reported: ??03/28/2023 Physician(s): Nessa Mcgee D.O. Diagnosis: SOURCE OF SPECIMEN ? Imaged Thinprep Pap Test w/ Reflex HPV - Certified Pharmacist Assistant Cytologic Material: STATEMENT OF ADEQUACY ?- Specimen satisfactory for interpretation; endocervical/transformation zone component absent or ?insufficient ? GENERAL CATEGORIZATION: ?- Negative for intraepithelial lesion or malignancy ? INTERPRETATION: ?- Numerous inflammatory cells present ? DISHA Faulkner(ASCP) Report Electronically Reviewed and Signed Out By ??DISHA Faulkner(ASCP) ??03/28/2023 13:21:27Specimen(s) Received: A: Imaged Thinprep Pap Test w/ Reflex HPV - Certified Pharmacist Assistant Cytologic Material Clinical History: Last Menstrual Period: [...] determined by the Surgical Pathology Department at [facility] as part of an ongoing software quality specialist program and in compliance with federally mandated [...] characteristics determined by the Surgical Pathology Department [facility]. ??It has not been cleared or approved by the U. S. Food and Drug Administration. Margareth Herrera DO LAB CYTOLOGY ORDERABLES Final Result PATHOLOGY [address] [place] [address] documented in this encounter Visit Diagnoses Diagnosis care, subsequent , second trimester- Primary 15 weeks gestation of Screening for malignant neoplasm of cervix Screening for malignant neoplasm of the cervix Screen for sexually transmitted diseases Screening examination for venereal disease care, subsequent , second trimester 15 weeks gestation of Screen for sexually transmitted diseases Screening examination for venereal disease Screening for malignant neoplasm of cervix Screening for malignant neoplasm of the cervix documented in this encounter Historical Medications * This list may reflect changes made after this encounter. [id number],crb-f olic (Kosher Plus Iron) 30 mg iron- 1 mg tablet Take 1 tablet by mouth daily 03/06/2021 08/22/2023 added in this encounter Care Teams Retail Greeter Relationship Specialty Start Date End Date No, Physician PCP - General 03/09/23 documented as of this encounter
--- OUTSIDE RECORDS SUMMARY | 2024-10-15 15:45 | XMS_ITS | Encounter Summary ---
Author Organization [facility] Address [address] [place] [address] Care Team Providers Care Sleeve Ironer Name Role Phone No, Physician Primary Care Provider [phone] Encounter Details Date Type Department Care Team (Late st Contact Info) Description 06/22/2023 Telephone [facility] [address] [place] [address] Elena Veliz LPN Social History [...] place to sleep or slept in a nursing home (including now)? No 04/14/2023 Comments Yes [...] Encounter - Elena Veliz LPN - 06/22/2023 3:01 PM CDT Patient notified and verbalizes understanding. * Telephone Encounter - Elena Veliz LPN - 06/22/2023 3:01 PM CDT ----- Message from Margareth Herrera DO sent at 06/22/2023 2:22 PM CDT ----- She also had both yeast and BV on her vaginal swab so I will send treatment for both. * Telephone Encounter - Elena Veliz LPN - 06/22/2023 3:00 PM CDT Patient notified and will call back to let us know where she wants the order sent. * Telephone Encounter - Elena Veliz LPN - 06/22/2023 3:00 PM CDT ----- Message from Margareth Herrera DO sent at 06/22/2023 2:22 PM CDT ----- Please inform the patient her GCT was elevated (I use 130 as my cutoff). She will need to complete a 3 hour glucose test and should fast for at least 8 hours beforehand. * Telephone Encounter - Elena Veliz LPN - 06/22/2023 2:57 PM CDT LMOM to return call. * Telephone Encounter - Elena Veliz LPN - 06/22/2023 2:57 PM CDT ----- Message from Margareth Herrera DO sent at 06/22/2023 2:22 PM CDT ----- She also had both yeast and BV on her vaginal swab so I will send treatment for both. * Telephone Encounter - Elena Veliz LPN - 06/22/2023 2:57 PM CDT LMOM to return call. * Telephone Encounter - Elena Veliz LPN - 06/22/2023 2:56 PM CDT ----- Message from Margareth Herrera [...] on filedocumented in this encounter Care Teams Sleeve Ironer Relationship Specialty Start Date End Date No, Physician PCP - General 03/09/23 documented as of this encounter
--- OUTSIDE RECORDS SUMMARY | 2024-10-15 15:45 | XMS_ITS | Encounter Summary ---
Author Organization [facility] Address [address] [place] [address] Care Team Providers Care Supervisor Park Workers Name Role Phone No, Physician Primary Care Provider [phone] Encounter Details Date Type Department Care Team (Late st Contact Info) Description 03/30/2023 Telephone [facility] [address] [place] [address] Elena Veliz LPN Social History [...] Telephone Encounter - Elena Veliz LPN - 03/30/2023 2:53 PM CDT Patient notified. * Telephone Encounter - Elena Veliz LPN - 03/30/2023 2:53 PM CDT ----- Message from Margareth Herrera DO sent at 03/30/2023 2:48 PM CDT ----- Please inform the patient that pap smear, genetic screening, and labs were all normal other than she is varicella non-immune. She cannot get this vaccine while so should avoid anyone with suspected chicken pox. documented in this encounter Plan of Treatment Not on file documented as of this encounter Visit Diagnoses Not on filedocumented in this encounter Care Teams Supervisor Park Workers Relationship Specialty Start Date End Date No, Physician PCP - General 03/09/23 documented as of this encounter
--- OUTSIDE RECORDS SUMMARY | 2024-10-15 15:45 | XMS_ITS | Encounter Summary ---
Author Organization [facility] Address [address] [place] [address] Care Team Providers Care Technical Applications Specialist Name Role Phone No, Physician Primary Care Provider Encounter Details Date Type Department Care Team (Late st Contact Info) Description 06/22/2023 Orders Only [address] [address] Margareth Herrera, DO [address] [place] [address] Social History Tobacco Use Types Packs/Day Years [...] place to sleep or slept in a residential (including now)? No 04/14/2023 Comments Yes Sex and Gender Information Value Date Recorded Sex Assigned at Not on file Legal Sex Female 3:14 PM CDT Gender Identity Not on file Sexual Orientation Not on file Occupation Industry Job Start Date Job End Date None Not on file Not on file Not on file documented as of this encounter Ordered Prescriptions Prescription Sig Dispense Quantity Refills Last Filled Start Date End Date metroNIDAZOLE (FLAGYL) 500 mg tablet Take 1 tablet (500 mg total) by mouth 2 (two) times a day for 7 days 14 tablet 06/22/2023 06/29/2023 fluconazole (DIFLUCAN) 150 mg tablet Take 1 tablet (150 mg total) by mouth once for 1 dose 1 tablet 06/22/2023 06/22/2023 documented in this encounter Plan of Treatment Not on file documented as of this encounter Visit Diagnoses Not on filedocumented in this encounter Care Teams Technical Applications Specialist Relationship Specialty Start Date End Date No, Physician PCP - General 03/09/23 documented as of this encounter
--- OUTSIDE RECORDS SUMMARY | 2024-10-15 16:12 | XMS_ITS | Clinical Summary ---
Author Organization [facility] Address [address] [place] [address] Care Team Providers Care Cinder Dump Crane Operator Name Role Phone Unavailable Primary Care Provider Unavailabl e Source Comments [facility],non-owned Affiliates and Associated Physician Practices is amultiple site organization consisting of ambulatory clinics and hospital sitesin [place], [place], [place] and [place]. This disclosure is being madepursuant to the Care Everywhere program and may not contain all information available regarding this patient. Last updated 18.[facility] [employer] Allergies Active Allergy Reactions Criticality Noted Date [...]
--- OUTSIDE RECORDS SUMMARY | 2024-10-15 16:12 | XMS_ITS | Referral Summary ---
Author Organization [facility] Address [address] [place] [address] Care Team Providers Care Railroad Car Painter Name Role Phone Unavailable Primary Care Provider Unavailabl e Source Comments [facility],non-owned Affiliates and Associated Physician Practices is amultiple site organization consisting of ambulatory clinics and hospital sitesin [place], [place], [place] and [place]. This disclosure is being madepursuant to the Care Everywhere program and may not contain all information available regarding this patient. Last updated 18.[facility] Allergies Active Allergy Reactions Criticality Noted [...]
--- OUTSIDE RECORDS SUMMARY | 2024-10-15 16:12 | XMS_ITS | Encounter Summary ---
Author Organization [facility] Address [facility] [facility] [place] [address] Care Team Providers Care Manager Branch Name Role Phone Unavailable Primary Care Provider Unavailabl e Reason for Visit * Reason Onset Date Comments Scheduling 03/08/2021 Encounter Details Date Type Department Care Team (Late st Contact Info) Description 03/08/2021 Telephone [facility]/ EVALUATION UNIT [facility] [facility] [place] [address] Katerin Reed Scheduling Social History Tobacco Use [...]
--- OUTSIDE RECORDS SUMMARY | 2024-10-15 16:12 | XMS_ITS | Patient Health Summary ---
Author Organization [facility] Address [address] [place] [address] Care Team Providers Care Midwife Name Role Phone Unavailable Primary Care Provider Unavailabl e Note from [facility],non-owned Affiliates and Associated Physician Practices is amultiple site organization consisting of ambulatory clinics and hospital sitesin [place], [place], [place] and [place]. This disclosure is being madepursuant to the Care Everywhere program and may not contain all information available regarding this patient. Last updated 18.[facility] Allergies * Amoxicillin(Rash) -Medium Criticality [...] HCT PANEL (03/05/2021 7:14 AM CDT) Pathologist [facility] Hemoglobin 11.1(L) 12.0 - 15.6 gm/dL 03/05/2021 8:29 AM CDT [facility] Hematocrit 34.4(L) 35.9 - 45.5 % 03/05/2021 8:29 AM CDT [facility] Blood BLOOD SPECIMEN / Unknown Lab Venipuncture / Unknown 03/05/2021 7:14 AM CDT 03/05/2021 8:22 AM CDT Fabrice Solis MD LAB - HEMATOLOGY ORD ERABLES [facility] [address] [place] [address] * PATHOLOGY TISSUE EXAM (STL) (03/04/2021 11:16 PM CDT) Pathologist [facility] Case Report Surgical Pathology Report ? Case: [id number] ? Authorizing Provider: ??Chelsie Astorga MD ?Collected: ? 03/04/2021 11:16 PM ? Ordering Location: ? [facility] ? Received: ?03/05/2021 08:34 AM ? Pathologist: ? Carline Sorto MD ? Specimen: ?Placenta 3rd Trimester ? 03/08/2021 11:28 AM [facility] Final Diagnosis Placenta, vaginal delivery - Small, hypermature placenta (weight <10th percentile for gestational age) - membranes with no histopathologic abnormality - Three-vessel umbilical cord with no histopathologic abnormality 03/08/2021 11:28 AM [facility] Clinical History The patient is a 25-year-old woman at 34 weeks, 0 days gestation, with premature rupture of membranes 02/13. Procedure/findings: vaginal delivery, baby to NICU. 03/08/2021 11:28 AM [facility] Gross Description The requisition and specimen [...] red-morales, spongy cut surfaces with no lesions. Pv Design And Installation Technician sections submitted as follows: A1-umbilical cord and membrane roll, A2-placental disc central, A3-placental disc peripheral. LJ 03/08/2021 11:28 AM [facility] Microscopic Description Microscopic examination substantiates the above diagnosis. 03/08/2021 11:28 AM [facility] Disclaimer All histochemical and/or immunohistochemical results are interpreted with controls that demonstrate appropriate staining reactions before reporting results. Note on use of immunocytochemistry reagents: This test was developed and its performance characteristic determined by [facility], Department of Laboratory Medicine. It has [...] interpreted with caution. 03/08/2021 11:28 AM CDT [facility] Embedded Images 03/08/2021 11:28 AM CDT [facility] Pathology/Cytolo gy ENTIRE PLACENTA / Unknown Collection / Unknown 03/04/2021 11:16 PM CDT 03/05/2021 8:34 AM CDT Chelsie Astorga MD LAB - PATHOLOGY /CYTOLOGY ORDERABLES [facility] [address] [place] [phone] * (ABNORMAL) BLOOD GASES CORD ARTERIAL (03/04/2021 [...] 03/04/2021 11:04 PM CDT [facility]P [facility]ERAP[facility] Powerhouse Mechanic ID [id number] 03/04/2021 11:04 PM CDT [facility] Blood, arterial CORD BLOOD SPECIMEN / Unknown 03/04/2021 10:52 PM CDT 03/04/2021 10:52 PM CDT Chelsie Astorga MD LAB - BLOOD GAS ES ORDERABLES [facility] [address] [place] [address] * (ABNORMAL) BLOOD GASES CORD NANCY (03/04/2021 [...] 03/04/2021 11:05 PM CDT [facility] [place]P [place]ERAP[place] Powerhouse Mechanic ID [id number] 03/04/2021 11:05 PM CDT [facility] Blood CORD BLOOD SPECIMEN / Unknown 03/04/2021 10:52 PM CDT 03/04/2021 10:52 PM CDT Chelsie Astorga MD LAB - BLOOD GAS ES ORDERABLES [facility] [address] [place] [address], [facility] [phone] * EPIDURAL BLOCK PERF (03/04/2021 4:08 PM CDT) Narrative Sharifa Alvarado APRN-ADMINISTRATIVE SPECIALIST - 03/04/2021 4:08 PM CDT Sharifa Alvarado APRN-ADMINISTRATIVE SPECIALIST ? 03/04/2021 ??4:09 PM Neuraxial Block Note [...] ??2 Staff: ?? Anesthesia Provider: ??Sharifa Alvarado, ETCHER AIRCRAFT-ADMINISTRATIVE SPECIALIST ?? - ?? performed the procedure Trent Phillips MD GENERAL ANESTHESIA ORDERABLES * TYPE + SCREEN PANEL (03/04/2021 7:33 AM CDT) Only the most recent of3 resultswithin the time period is included. Pathologist [facility] ABO Rh B POS 03/04/2021 8:20 AM CDT [facility] Comment:History checked. Antibody Screen NEG 8:20 AM CDT [facility] Blood Bank BLOOD SPECIMEN / Unknown Venipuncture / Unknown 03/04/2021 7:33 AM CDT 03/04/2021 7:38 AM CDT Fabrice Solis MD LAB - BLOOD BANK ORD ERABLES [facility] [address] [place] [address], [facility] [phone] * (ABNORMAL) CBC W AUTO DIFFERENTIAL (03/04/2021 7:33 AM CDT) Only the most recent of4 resultswithin the time period is included. WBC 11.6(H) 4.4 - 10.7 x10E9/L 03/04/2021 7:45 AM CDT [facility] WBC Corrected 03/04/2021 7:45 AM CDT [facility] RBC 3.75(L) 3.80 - 5.20 x10E12/L 03/04/2021 7:45 AM CDT [facility] Hemoglobin 10.7(L) 12.0 - 15.6 gm/dL 03/04/2021 7:45 AM CDT [facility] Hematocrit 32.4(L) 35.9 - 45.5 % 03/04/2021 7:45 AM CDT [facility] MCV 86.4 80.7 - 98.3 fl 03/04/2021 7:45 AM CDT [facility] MCH 28.5 26.7 - 34.0 pg 03/04/2021 7:45 AM CDT [facility] MCHC 33.0 30.8 - 35.9 gm/dL 03/04/2021 7:45 AM CDT [facility] Platelet Count 251 153 - 416 x10E9/L 03/04/2021 7:45 AM CDT [facility] RDW-CV 15.8(H) 12.1 - 14.9 % 03/04/2021 7:45 AM CDT [facility] MPV 9.6 9.4 - 12.9 fl 03/04/2021 7:45 AM CDT [facility] Neutrophils % 64.1 44.0 - 73.0 % 03/04/2021 7:45 AM CDT [facility] Lymphocytes % 22.9 20.0 - 43.0 % 03/04/2021 7:45 AM CDT [facility] Monocytes % 9.7 5.0 - 13.0 % 03/04/2021 7:45 AM CDT [facility] Eosinophils % 2.1 0.0 - 6.0 % 03/04/2021 7:45 AM CDT [facility] Basophils % 0.3 0.0 - 2.0 % 03/04/2021 7:45 AM CDT [facility] Immature Granulocytes 0.9 0 - 1 % 03/04/2021 7:45 AM CDT [facility] Neutrophil Absolute 7.45(H) 2.01 - 7.14 x10E9/L 03/04/2021 7:45 AM CDT [facility] Lymphocytes Absolute 2.67 1.07 - 3.94 x10E9/L 03/04/2021 7:45 AM CDT [facility] Monocytes Absolute 1.13(H) 0.26 - 1.07 x10E9/L 03/04/2021 7:45 AM CDT [facility] Eosinophils Absolute 0.24 0 - 0.47 x10E9/L 03/04/2021 7:45 AM CDT [facility] Basophils Absolute 0.04 0 - 0.08 x10E9/L 03/04/2021 7:45 AM CDT [facility] Immature Granulocytes Absolute 0.11(H) 0.00 - 0.06 x10E9/L 03/04/2021 7:45 AM CDT [facility] nRBC Auto 0 /100 WBC 03/04/2021 7:45 AM CDT [facility] Blood BLOOD SPECIMEN / Unknown Venipuncture / Unknown 03/04/2021 7:33 AM CDT 03/04/2021 7:38 AM CDT Fabrice Solis MD LAB - HEMATOLOGY ORD ERABLES [facility] [address] [place] [address] * NON-STRESS TEST (03/03/2021 11:32 PM CDT) [...] - 170 ug/dL 02/26/2021 3:44 PM CDT [facility] Comment:Attention clinician: Reference Range change. Transferrin 399(H) 180 - 382 mg/dL 02/26/2021 3:44 PM CDT [facility] Comment:Attention clinician: Reference Range change. TIBC Calculated 499(H) 240 - 450 ug/dL 02/26/2021 3:44 PM CDT [facility] Iron Saturation % 9(L) 20 - 50 % 02/26/2021 3:44 PM CDT [facility] Blood BLOOD SPECIMEN / Unknown Venipuncture / Unknown 02/26/2021 3:14 PM CDT 02/26/2021 3:25 PM CDT Hali Tomas ETCHER AIRCRAFT-RUBBER TIRE CURER LAB - REGULATORY CONSULTANT RY ORDERABLES Performing Organization Address [facility] de Phone Number [facility] [address] [place] [address] * FERRITIN (02/26/2021 3:14 PM CDT) Ferritin 7 5 - 204 ng/mL 02/26/2021 4:12 PM CDT [facility] Blood BLOOD SPECIMEN / Unknown Venipuncture / Unknown 02/26/2021 3:14 PM CDT 02/26/2021 3:25 PM CDT Hali Tomsa ETCHER AIRCRAFT-RUBBER TIRE CURER LAB - REGULATORY CONSULTANT RY ORDERABLES Performing Organization Address [facility] de Phone Number [facility] [address] [place] [address] * SONOGRAM - COMPLETE (02/24/2021 9:45 AM CDT) Only the most recent of3 resultswithin the time period is included. Anatomical Region Laterality Modality Other 02/24/2021 9:45 AM CDT Narrative 02/24/2021 11:55 AM CDT ?[facility] [place] [facility] ?PHONE: ??FAX: Pat. Name: ?HANNAH LUIS Pat. No: ?[id number] Study Date: ?? 02/24/2021 ??9:45am , Age: ? 1995, 25 Pregnancies: ?? 5, Para 3, Ab 1 Height: ? 65 in Weight: ? 166 lb LMP: ?Unknown GA by Base: ?? 32w6d ?? SRINIVASA: 04/15/2021 GA by US: ? 33w1d ?? SRINIVASA: 04/13/2021 GA Selected: ??32w6d (From [facility]) SRINIVASA: ?04/15/2021 Referring MD: Junie Brizuela MD Ssds Mk 2 Advanced Operator: ??April Hernandez, HALIE, ANNIE CPT4: ? 99393 BMI: ?27.62 Room: ? 540 Hist/Ind: ? Unknown LMP ?Hx ?EIF ?PPROM MEASUREMENTS & AGE ? GROWTH EVALUATION Measurement ??GA ? Range ? Srce %for GA Ratios ----- ---- ------- BPD ??8.4 cm 33w6d (61r7w-02z5q) Hadl BPD 71% FL/BPD 0.71 (0.71 - 0.87* HC ??30.7 cm 34w1d (41w0z-39l5n) Hadl HC ??49% FL/AC ??0.20 (0.20 - 0.24) AC ??29.7 cm 33w5d (65e9p-55o1w) Hadl AC ??74% HC/AC ??1.03 (0.95 - 1.14) FL ?? 6.0 cm 31w0d (42i5e-64c4m) Hadl FL ??5% CI ? 0.77 (0.70 - 0.86) HL ?? 5.2 cm 30w1d (06q7p-19p5g) Cyril HL ??6% GA for sonogram 33w1d (00n9v-02t0i) ?? Weight Estimate: based on (BPD,HC,AC,FL) Avg [...] ?<Electronic Signature> ??02/24/2021 11:55am Fabrice Solis MD [facility] ORDERABLES * (ABNORMAL) FIBRINOGEN ACTIVITY (02/24/2021 1:45 AM CDT) Pathologist [facility] Fibrinogen 418(H) 200 - 400 mg/dL 02/24/2021 2:13 AM CDT [facility] Blood BLOOD SPECIMEN / Unknown Lab Venipuncture / Unknown 02/24/2021 1:45 AM CDT 02/24/2021 1:59 AM CDT Fabrice Solis MD LAB - COAGULATION OR DERABLES Performing Organization Address [facility] de Phone Number [facility] [address] [place] [address] * PTT (02/24/2021 1:45 AM CDT) Pathologist [facility] PTT 23.9 23.0 - 38.4 sec 02/24/2021 2:12 AM CDT [facility] Blood BLOOD SPECIMEN / Unknown Lab Venipuncture / Unknown 02/24/2021 1:45 AM CDT 02/24/2021 1:59 AM CDT Narrative [facility] - 02/24/2021 2:12 AM CDT Heparin Therapeutic Range for PTT: ??71.0 - 109.0 seconds. Fabrice Solis MD LAB - COAGULATION OR DERABLES Performing Organization Address [facility] de Phone Number [facility] [address] [place] [phone] * PT-INR (02/24/2021 1:45 AM CDT) Pathologist [facility] PT 13.3 12.1 - 14.8 sec 02/24/2021 2:11 AM CDT [facility] INR 1.0 0.9 - 1.1 02/24/2021 2:11 AM CDT [facility] Blood BLOOD SPECIMEN / Unknown Lab Venipuncture / Unknown 02/24/2021 1:45 AM CDT 02/24/2021 1:59 AM CDT Narrative [facility] - 02/24/2021 2:11 AM CDT Conventional Warfarin Anticoagulant Therapy: INR Reference Range: ??2.0-3.0 Intensive Warfarin Anticoagulant Therapy: INR Reference Range: ? 2.5-3.5 Fabrice Solis MD LAB - COAGULATION OR DERABLES Performing Organization Address City/[facility]/ZIP Co de Phone Number [facility] [address] [place], [place] [phone] * (ABNORMAL) MAGNESIUM BLOOD (02/24/2021 1:45 AM CDT) [facility] Magnesium 6.0(HH) 1.6 - 2.6 mg/dL 02/24/2021 2:30 AM CDT [facility] Blood BLOOD SPECIMEN / Unknown Lab Venipuncture / Unknown 02/24/2021 1:45 AM CDT 02/24/2021 1:59 AM CDT Fabrice Solis MD LAB - CHEMISTRY ORDE RABLES Performing Organization Address [facility]/ZIP Co de Phone Number [facility] [address] [place] [address] * (ABNORMAL) DRUG SCREEN TOX URINE PANEL (02/23/2021 6:23 PM CDT) [facility] Amphetamines Screen Urine Not detected Not detected 02/23/2021 7:09 PM CDT [facility] Barbiturates Screen Urine Not detected Not detected 02/23/2021 7:09 PM CDT [facility] Benzodiazepines Screen Urine Not detected Not detected 02/23/2021 7:09 PM CDT [facility] Cannabinoids Screen Urine Detected(A) Not detected 02/23/2021 7:09 PM CDT [facility] Cocaine Screen Urine Not detected Not detected 02/23/2021 7:09 PM CDT [facility] Fentanyl Urine Not detected Not detected 02/23/2021 7:09 PM CDT [facility] Methadone Screen Urine Not detected Not detected 02/23/2021 7:09 PM CDT [facility] Opiate Screen Urine Not detected Not detected 02/23/2021 7:09 PM CDT [facility] Phencyclidine Screen Urine Not detected Not detected 02/23/2021 7:09 PM CDT [facility] Urine URINE / Unknown Collection / Unknown 02/23/2021 6:23 PM CDT 02/23/2021 6:39 PM CDT Narrative [facility] - 02/23/2021 7:09 PM CDT This [...] URINE CHEMISTR Y ORDERABLES Performing Organization Address City/State/[facility] Co de Phone Number [facility] [address] [place], [place] [phone] * CHLAMYDIA + GC AMPLIFIED PROBE (STL) (02/23/2021 6:22 PM CDT) Pathologist [facility] Chlamydia Amplified Probe Negative Negative 02/24/2021 5:54 AM CDT [facility] MICROBIOLOGY GC Amplified Probe Negative Negative 02/24/2021 5:54 AM CDT [facility] Microbiology PART OF UTERINE CERVIX / Unknown Collection / Unknown 02/23/2021 6:22 PM CDT 02/23/2021 6:39 PM CDT Narrative [facility] - 02/24/2021 5:54 AM CDT Results based on detection/no detection of ribosomal RNA by amplified method. Fabrice Solis MD LAB - MICROBIOLOGY O RDERABLES [facility] [address] [place] [phone] * TRICHOMONAS RAPID TEST (02/23/2021 6:22 PM CDT) Trichomonas Rapid Test Negative Negative 02/23/2021 7:05 PM CDT [facility] Microbiology VAGINAL SWAB / Unknown Collection / Unknown 02/23/2021 6:22 PM CDT 02/23/2021 6:39 PM CDT Fabrice Solis MD LAB - MICROBIOLOGY O RDERABLES Performing Organization Address City/[facility]/ZIP Co de Phone Number [facility] [address] [place] [address] * BLOOD TYPE VERIFICATION (02/23/2021 6:21 PM CDT) ABO Rh B POS 02/23/2021 7:0 4 PM CDT [facility] Blood Bank BLOOD SPECIMEN / Unknown Venipuncture / Unknown 02/23/2021 6:21 PM CDT 02/23/2021 6:33 PM CDT Fabrice Solis MD LAB - BLOOD BANK ORD ERABLES Performing Organization Address City/[facility] Co de Phone Number [facility] [address] [place], [place] [address] [phone] * CULTURE STREP B (02/23/2021 6:20 PM CDT) Culture Strep B Negative for beta-hemolytic Streptococcus Group B ARTIE 02/27/2021 5:36 AM CDT [facility] Microbiology MISCELLANEOUS SAMPLES / Unknown Collection / Unknown 02/23/2021 6:20 PM CDT 02/23/2021 6:39 PM CDT Fabrice Solis MD LAB - MICROBIOLOGY O RDERABLES Performing Organization Address [facility] Co de Phone Number [facility] MICROBIOLOGY [address] [place] [address], [facility] [phone] * (ABNORMAL) RUPTURE OF MEMBRANES EVAL (02/23/2021 5:35 PM CDT) RUPTURE OF MEMBRANES POSITIVE(A ) NEGATIVE 02/23/2021 5:47 PM CDT [facility] Fluid VAGINAL SWAB / Unknown Collection / Unknown 02/23/2021 5:35 PM CDT 02/23/2021 5:38 PM CDT Narrative [facility] - 02/23/2021 5:47 PM CDT A [...] BODY FLUID ORD ERABLES Performing Organization Address [facility] Co de Phone Number [facility] [address] [place] [address]
--- OUTSIDE RECORDS SUMMARY | 2024-10-15 16:12 | XMS_ITS | Encounter Summary ---
Author Organization [facility] Address [facility] [place] [address] Care Team Providers Care Cyber Ops Planner Name Role Phone Unavailable Primary Care Provider Unavailabl e Reason for Visit * Reason Onset Date Comments Confirmation 10/21/2022 Encounter Details Date Type Department Care Team (Late st Contact Info) Description 10/21/2022 Telephone [facility] - Internal Medicine [address] [place] [phone] Ajay Marino MD [address] [place] [address] [phone] Confirmation Social History Tobacco Use Types Packs/Day [...] listed above, where are they calling from? [facility] What is the reason for call? Attempted to reach patient to confirm upcoming appt with Dr. Marino. Appointment cancelled. Expected Response from the Clinic? N/A S AND WIND INSTRUMENT REPAIRER documented in this encounter Plan of Treatment Not on file documented as of this encounter Visit Diagnoses Not on filedocumented in this encounter
--- OUTSIDE RECORDS SUMMARY | 2024-10-15 16:13 | XMS_ITS | Encounter Summary ---
Author Organization [facility] Address [address] [place] [address] Care Team Providers Care Information Systems Security Specialist Name Role Phone No, Physician Primary Care Provider [phone] Reason for Visit * Reason Comments Contractions Encounter Details Date Type Department Care Team (Late st Contact Info) Description 09/02/2023 11:18 AM CDT - 09/02/2023 12:58 PM CDT Hospital Encounter [facility] [address] [place] [address] Margareth Herrera, DO [address] [place] [address] Discharge Disposition: Discharge to home or self [...] often do you attend chur ch or evangelical services? More than 4 times per year 09/01/2023 Do you belong to any clubs o r organizations such as holiness groups, unions, fraternal or athletic groups, or [...] staff should administer the PHQ-9) 0 09/01/2023 [facility] Occupat ional [facility] - Occupational Stress Questionnaire Answer Date [...] slept in a [facility] (including now)? No 09/01/2023 Comments Yes Sex [...] - 09/02/2023 12:53 PM CDT Return to [facility] Monday09/04/23 at 0600 for induction of labor. * Attachments The following attachments cannot be sent through Care Everywhere. * at 35 to 38 Weeks (Discharge Care) ([place] Islander) documented in this encounter Medications at Time [...] which was unchanged from previous SVE at [place] of /-2. This RN took over pt [...] LAB URINE ORDERABLES Fi nal Result [facility]) [address] [facility] Department [place] [address] * (ABNORMAL) Urinalysis reflex to microscopic and [...] tendency for uric acid stone formation. Source: [facility] Current Interpretive Data was last revised on [...] GENE RAL ORDERABLES Final Result [facility] ([place]) 1 [facility] [place] [address] documented in this encounter Visit Diagnoses Not on filedocumented in this encounter Orders Discharge Count Last Ordered Date First Orde red Date DISCHARGE PATIENT 1 09/02/2023 documented in this encounter Care Teams Information Systems Security Specialist Relationship Specialty Start Date End Date No, Physician PCP - General 03/09/23 documented as of this encounter
--- OUTSIDE RECORDS SUMMARY | 2024-10-15 16:13 | XMS_ITS | Encounter Summary ---
Author Organization [facility] Healthcare Address [address] [place] [address] Care Team Providers Care Archivist Nonprofit Foundation Name Role Phone No, Physician Primary Care Provider [phone] Reason for Visit * Reason Onset Date Comments No show Ret OB appointment 08/31/2023 Encounter Details Date Type Department Care Team (Late st Contact Info) Description 08/31/2023 Telephone [facility] [address] [place] [phone] Margareth Herrera, DO [address] [place] [address] No show Ret OB appointment Social History [...] often do you attend chur ch or episcopal services? More than 4 times per year [...] staff should administer the PHQ-9) 0 09/01/2023 [facility] of Occupat ional [facility] - Occupational Stress Questionnaire Answer Date Recorded [...] place to sleep or slept in a [place] facility (including now)? No 09/01/2023 Comments Yes Sex [...] on filedocumented in this encounter Care Teams Archivist Nonprofit Foundation Relationship Specialty Start Date End Date No, Physician PCP - General 03/09/23 documented as of this encounter
--- OUTSIDE RECORDS SUMMARY | 2024-10-15 16:13 | XMS_ITS | Encounter Summary ---
Author Organization [facility] Address [facility] [place] [address] Care Team Providers Care Waste Machine Operator Name Role Phone Unavailable Primary Care Provider Unavailabl e Reason for Visit * Auth/Cert Specialty Diagnoses / Procedures Referred By Contac t Referred To Contact Referral ID Status Reason Start Date Expiration Date Visits Re quested Visits Authorized [id number] 1 1 Encounter Details Date Type Department Care Team (Late st Contact Info) Description 03/04/2021 3:55 PM CDT Anesthesia Event [facility] [address] [place], [place] [phone] Trent Phillips MD [address] [place] [address] Sharifa Alvarado, FASHION PHOTOGRAPHER-BUCKET TURNER [address] [place] [address] Anesthesia Record Procedure Summary Procedure Name Responsible [...] 29 CM; Lumens: Single Lumen; Gauge: 3 [place]ib[place]ian; Length of Cath(cm): 20 cm; Brand: BARD; Lot: [id number] exp 12/21; Tolerance: Moderate 03/01/21 1003 by [...] this encounter Progress Notes * Quincy Amin APRN-BUCKET TURNER - 03/05/2021 11:01 AM CDT ANESTHESIA POSTOP [...] COMPLICATIONS: No complications documented. * Sharifa Alvarado APRN-BUCKET TURNER - 03/04/2021 3:48 PM CDT ANESTHESIA PREOPERATIVE [...] this encounter Procedure Notes * Sharifa Alvarado, FASHION PHOTOGRAPHER-BUCKET TURNER - 03/04/2021 4:08 PM CDTAssociated Order(s): Neuraxial [...] ??2 Staff: ?? Anesthesia Provider: ??Sharifa Alvarado, TOSHIA-BUCKET TURNER ?? - ?? performed the procedure Trent [...]
--- OUTSIDE RECORDS SUMMARY | 2024-10-15 16:13 | XMS_ITS | Referral Summary ---
Author Organization [facility] [address] Address [address] [place] [address] Phone Care Team Providers Care Timekeeping Supervisor Name Role Phone No, Physician Primary Care Provider [phone] Margareth Herrera DO Unavailable [phone] Allergies Active Allergy Reactions Criticality Noted Date [...] was counseled on the limitations of our [facility] and that can not guarantee the ad operations intern OB will offer a TOLAC if she [...] often do you attend chur ch or jain services? More than 4 times per year 09/01/2023 Do you belong to any clubs o r organizations such as orthodox groups, unions, fraternal or athletic groups, or [...] staff should administer the PHQ-9) 0 09/01/2023 [facility] of Occupat ional Health - Occupational [...] slept in a longterm (including now)? No 09/01/2023 Personal Safety Answer [...] Comments Blood Pressure 118/73 09/05/2023 10:07 AM COIL SHAPER Pulse 62 09/05/2023 10:07 AM COIL SHAPER Temperature 36.2 ??C (97.1 ??F) 09/05/2023 10:[address] Respiratory Rate 18 09/05/2023 10:07 AM COIL SHAPER Oxygen Saturation 99% 09/05/2023 10:07 AM COIL SHAPER Inhaled Oxygen Concentration - - Weight 75.8 kg (167 lb 1.7 oz) 09/05/2023 6:20 A M COIL SHAPER Height 165.1 cm (5' 5 ) 09/05/2023 6:20 AM COIL SHAPER Body Mass Index 27.81 09/05/2023 6:20 AM COIL SHAPER Plan of Treatment Not on file Procedures [...] RAL ORDERABLES Edited Result - Final [facility] [address] [place] [address] * Pap with reflex to High Risk HPV (03/23/2023 8:02 AM CDT) Thin prep (Pap test) 03/23/2023 8:02 AM CDT 03/23/2023 8:02 AM CDT Narrative PATHOLOGY - 03/28/2023 1:21 PM CDT [facility] Department of Pathology [address] [place], [place] [id number] Final Report Note to Patients: This report [...] ??HANNAH PYLE Address: ??[address], ?? [place], [place] [address] Gender: ??F : ??1995 (Age: 27) Service: ?? Location: ?? Hospital #: ??[id number] Patient Type: ?? SPECIMEN Taken: ??03/23/2023 Received: ??03/23/2023 Accessioned:: ??03/24/2023 Reported: ??03/28/2023 Physician(s): Nessa Mcgee D.O. Diagnosis: SOURCE OF SPECIMEN ? Imaged Thinprep Pap Test w/ Reflex HPV - [place] Cytologic Material: STATEMENT OF ADEQUACY ?- Specimen satisfactory for interpretation; endocervical/transformation zone component absent or ?insufficient ? GENERAL CATEGORIZATION: ?- Negative for intraepithelial lesion or malignancy ? INTERPRETATION: ?- Numerous inflammatory cells present ? DISHA Faulkner(ASCP) Report Electronically Reviewed and Signed Out By ??DISHA Faulkner(ASCP) ??03/28/2023 13:21:27Specimen(s) Received: A: Imaged Thinprep Pap Test w/ Reflex HPV - [place] Cytologic Material Clinical History: Last Menstrual Period: [...] determined by the Surgical Pathology Department at [facility] as part of an ongoing manager quality compliance program and in compliance with federally mandated [...] characteristics determined by the Surgical Pathology Department [facility]. ??It has not been cleared or approved by the U. S. Food and Drug Administration. Margareth Herrera DO LAB CYTOLOGY ORDERABLES Final Result Performing Organization Address City/State/ZIP [place] Phone Number PATHOLOGY [address] [place] [address] from Last 3 Months or Most Recently Relevant to Health Maintenance Insurance AETNA BETTER [facility] A[employer]NA BETTER [facility] AETNA BETTER [facility] Care Teams Timekeeping Supervisor Relationship Specialty Start Date End Date No, Physician PCP - General 03/09/23 Margareth Herrera DO [address] [place] [address] Consulting Physician Obstetrics and Gynecology 09/05/23
--- OUTSIDE RECORDS SUMMARY | 2024-10-15 16:13 | XMS_ITS | Encounter Summary ---
Author Organization [facility] Address [address] [facility] [place] [address] Care Team Providers Care Innersole Maker Name Role Phone Unavailable Primary Care Provider Unavailabl e Reason for Visit * Reason Onset Date Comments Missed Appointment 12/14/2020 Encounter Details Date Type Department Care Team (Late st Contact Info) Description 12/14/2020 Telephone [facility]'s Health Maternal & Care [address] [place] [address] Yasmine Schaffer RN Missed Appointment Social History [...] call our office with any further questions. CING MACHINE OPERATOR documented in this encounter Plan of Treatment Not on file documented as of this encounter Visit Diagnoses Diagnosis Fifth (HCC) state, incidental Encounter for ultrasound ([facility]) Encounter for routine screening for malformation using ultrasonics Hx of section Other postprocedural status Herpes Herpes simplex without mention of complication documented in this encounter
--- OUTSIDE RECORDS SUMMARY | 2024-10-15 16:13 | XMS_ITS | Clinical Summary ---
Author Organization [facility] [address] Address [address] [place] [address] Phone Care Team Providers Care Branch Manager Name Role Phone No, Physician Primary Care Provider [phone] Margareth Herrera DO Unavailable [phone] Allergies Active Allergy Reactions Criticality Noted Date [...] was counseled on the limitations of our [facility] and that can not guarantee the field artillery operations man OB will offer a TOLAC if she [...] any clubs o r organizations such as religious groups, unions, fraternal or athletic groups, or [...] staff should administer the PHQ-9) 0 09/01/2023 [facility] of Occupat ional Health [...] in a group home (including now)? No 09/01/2023 Personal Safety Answer [...] BABY BOY NADIR daily MD Complications:None Delivery Location:[facility] ([facility] 5 R) Last Filed Vital Signs Vital Sign Reading Time Taken Comments Blood Pressure 118/73 09/05/2023 10:07 AM CIGARETTE VENDOR Pulse 62 09/05/2023 10:07 AM CIGARETTE VENDOR Temperature 36.2 ??C (97.1 ??F) 09/05/2023 10:[address] Respiratory Rate 18 09/05/2023 10:07 AM CIGARETTE VENDOR Oxygen Saturation 99% 09/05/2023 10:07 AM CIGARETTE VENDOR Inhaled Oxygen Concentration - - Weight 75.8 kg (167 lb 1.7 oz) 09/05/2023 6:20 A M CIGARETTE VENDOR Height 165.1 cm (5' 5 ) 09/05/2023 6:20 AM CIGARETTE VENDOR Body Mass Index 27.81 09/05/2023 6:20 AM CIGARETTE VENDOR Plan of Treatment Health Maintenance Due Date [...] C antibody (03/23/2023 11:20 AM CDT) Pathologist [facility] Hep C Ab Nonreactive Nonreactive [facility] ARM[facility]AR[facility] [...] RAL ORDERABLES Edited Result - Final [facility] [address] [facility] Department of Laboratories [place] [id number] * Pap with reflex to High Risk HPV (03/23/2023 8:02 AM CDT) Thin prep (Pap test) 03/23/2023 8:02 AM CDT 03/23/2023 8:02 AM CDT Narrative PATHOLOGY CH - 03/28/2023 1:21 PM CDT [facility] Department of Pathology [address] [place], [place] [id number] Final Report Note to Patients: This report [...] the details. Patient Name: ??HANNAH PYLE Address: ??[address] [place] [address], ?? [place], [place] [address] Gender: ??F : ??1995 (Age: 27) Service: ?? Location: ?? Hospital #: ??[id number] Patient Type: ?? SPECIMEN Taken: ??03/23/2023 Received: ??03/23/2023 Accessioned:: ??03/24/2023 Reported: ??03/28/2023 Physician(s): Margareth Herrera D.O. Margareth Herrera D.O. Diagnosis: SOURCE OF SPECIMEN ? Imaged Thinprep Pap Test w/ Reflex HPV - Lab Animal Technologist Cytologic Material: STATEMENT OF ADEQUACY ?- Specimen satisfactory for interpretation; endocervical/transformation zone component absent or ?insufficient ? GENERAL CATEGORIZATION: ?- Negative for intraepithelial lesion or malignancy ? INTERPRETATION: ?- Numerous inflammatory cells present ? DISHA Faulkner(ASCP) Report Electronically Reviewed and Signed Out By ??DISHA Faulkner(ASCP) ??03/28/2023 13:21:27Specimen(s) Received: A: Imaged Thinprep Pap Test w/ Reflex HPV - Lab Animal Technologist Cytologic Material Clinical History: Last Menstrual Period: [...] determined by the Surgical Pathology Department at [facility] as part of an ongoing quality control clerk program and in compliance with federally mandated [...] characteristics determined by the Surgical Pathology Department [facility]. ??It has not been cleared or approved by the U. S. Food and Drug Administration. us Margareth Herrera DO LAB CYTOLOGY ORDERABLES Final Result PATHOLOGY [address] [place] [address] from Last 3 Months or Most Recently Relevant to Health Maintenance [place] Care Teams Branch Manager Relationship Specialty Start Date End Date No, Physician PCP - General 03/09/23 Margareth Herrera DO [address] [place] [address] Consulting Physician Obstetrics and Gynecology 09/05/23
--- OUTSIDE RECORDS SUMMARY | 2024-10-15 16:13 | XMS_ITS | Encounter Summary ---
Author Organization [facility] Healthcare Address [address] [place] [address] Care Team Providers Care Link Trainer Teacher Name Role Phone No, Physician Primary Care Provider [phone] Reason for Visit * Reason Comments Routine Visit Encounter Details Date Type Department Care Team (Late st Contact Info) Description 08/22/2023 10:10 AM CDT Office Visit [facility] [address] [place] [address] Margareth Herrera, DO [address] [place] [address] Encounter for supervision of other normal in [...] often do you attend chur ch or adventist services? More than 4 times per year [...] staff should administer the PHQ-9) 0 08/22/2023 [facility] of Occupat ional [facility] - Occupational Stress Questionnaire Answer [...] slept in a alf (including now)? No 08/22/2023 Comments Yes Sex [...] Report: Negative CERNER Comment:Testing performed by : [facility], [address] [facility], [place]., [address] Vaginal/Rectal 08/22/2023 3: 28 PM CDT 08/23/2023 3:22 AM CDT Narrative [facility] - 08/25/2023 9:25 PM CDT Testing performed by [facility] Microbiology Laboratory ([phone]). us Margareth Herrera DO LAB MICROBIOLOGY - GENE RAL ORDERABLES Final Result [facility] [address] Department [place] [address] * (ABNORMAL) POCT urine glucose and protein (08/22/2023 10:03 AM CDT) Glucose, ur, POC Negative Negative MG/DL Protein, ur, POC 1+(A) Negative Lot Number [id number] Urine 08/22/2023 10:0 3 AM CDT us Margareth Herrera DO POINT OF CARE TEST ORDE RABLES Final Result documented in this encounter Visit Diagnoses Diagnosis Encounter for supervision of other normal in third trimester- Primary 36 weeks gestation of Encounter for supervision of other normal in third trimester 36 weeks gestation of documented in this encounter Care Teams Link Trainer Teacher Relationship Specialty Start Date End Date No, Physician PCP - General 03/09/23 documented as of this encounter
--- OUTSIDE RECORDS SUMMARY | 2024-10-15 16:13 | XMS_ITS | Encounter Summary ---
Author Organization [facility] Healthcare Address [address] [place] [address] Care Team Providers Care Livestock Showman Name Role Phone No, Physician Primary Care Provider [phone] Reason for Visit * Reason Comments Contractions Encounter Details Date Type Department Care Team (Late st Contact Info) Description 09/01/2023 2:06 AM CDT - 09/01/2023 4:40 AM CDT Hospital Encounter [facility] [address] [place] [address] Margareth Herrera, DO [address] [place] [address] Discharge Disposition: Discharge to home or self [...] often do you attend chur ch or mormon services? More than 4 times per year 09/01/2023 Do you belong to any clubs o r organizations such as jewish groups, unions, fraternal or athletic groups, or [...] staff should administer the PHQ-9) 0 09/01/2023 [facility] of Occupat ional [facility] - Occupational Stress Questionnaire Answer [...] in a fpc (including now)? No 09/01/2023 Comments Yes Sex [...] Everywhere. * Early Labor Signs (Discharge Care) (Nigerien) documented in this encounter Medications at Time [...] with complaints of contractions. Pt just left [facility] L&D, upon arrival SVE is /-2, [...] Final Re sult [facility] ([facility]) [address] [facility] Department [place] [address] * (ABNORMAL) Urinalysis reflex to microscopic and [...] tendency for uric acid stone formation. Source: [facility] Current Interpretive Data was last revised on [...] DERABLES Final Result [facility]ACOB ([facility]) [address] [facility] Department [place] [address] documented in this encounter Visit Diagnoses Not [...] 09/01/2023 documented in this encounter Care Teams Livestock Showman Relationship Specialty Start Date End Date No, Physician PCP - General 03/09/23 documented as of this encounter
--- OUTSIDE RECORDS SUMMARY | 2024-10-15 16:13 | XMS_ITS | Encounter Summary ---
Author Organization [facility] Healthcare Address [address] [place] [address] Care Team Providers Care Tower Truck Driver Name Role Phone No, Physician Primary Care Provider [phone] Encounter Details Date Type Department Care Team (Latest Contact Info) Description 08/22/2023 10:04 AM CDT - 08/22/2023 11:59 PM CDT Hospital Encounter [address] [id number] Encounter for supervision of other normal in [...] week 08/22/2023 How often do you attend [facility] or congregational services? More than 4 times per year 08/22/2023 Do you belong to any clubs o r organizations such as cheondoism groups, unions, fraternal or athletic groups, or [...] staff should administer the PHQ-9) 0 08/22/2023 [facility] of Occupat ional Health - Occupational Stress [...] in a senior care (including now)? No 08/22/2023 Comments Yes Sex [...] Negative [facility] ARMENDARIZ Comment:Testing performed by : [facility], [address] [place] [address]., [address] Vaginal/Rectal 08/22/2023 3: 28 PM CDT 08/23/2023 3:22 AM CDT Narrative [facility] ARMENDARIZ - 08/25/2023 9:25 PM CDT Testing performed by [facility] Microbiology Laboratory ([phone]). Margareth Herrera DO LAB MICROBIOLOGY - GENE RAL ORDERABLES Final Result [facility] [address] Department [place] [address] documented in this encounter Visit Diagnoses Diagnosis Encounter for supervision of other normal in third trimester 36 weeks gestation of documented in this encounter Care Teams Tower Truck Driver Relationship Specialty Start Date End Date No, Physician PCP - General 03/09/23 documented as of this encounter
--- OUTSIDE RECORDS SUMMARY | 2024-10-15 16:13 | XMS_ITS | Encounter Summary ---
Author Organization [facility] Address [address] [facility] [place] [address] Care Team Providers Care Statistical Machine Mechanic Name Role Phone Unavailable Primary Care Provider Unavailabl e Reason for Visit * Reason Onset Date Comments Results 10/14/2020 Encounter Details Date Type Department Care Team (Late st Contact Info) Description 10/14/2020 Telephone [facility] Maternal & Care [address] [place] [address] Yasmine Schaffer RN Results Social History Tobacco [...] will be sent to patient's primary OB STRIAL PHOTOGRAPHER documented in this encounter Plan of Treatment Not on file documented as of this encounter Visit Diagnoses Diagnosis Fifth (HCC) state, incidental Encounter for ultrasound (HCC) Encounter for routine screening for malformation using ultrasonics Hx of section Other postprocedural status Herpes Herpes simplex without mention of complication documented in this encounter
--- OUTSIDE RECORDS SUMMARY | 2024-10-15 16:13 | XMS_ITS | Encounter Summary ---
Author Organization [facility] Healthcare Address [address] [place] [address] Care Team Providers Care Federal Air Marshal Name Role Phone No, Physician Primary Care Provider [phone] Encounter Details Date Type Department Care Team (Late st Contact Info) Description 08/17/2023 Telephone [facility] [address] [place] [address] Elena Veliz LPN Social History [...] on filedocumented in this encounter Care Teams Federal Air Marshal Relationship Specialty Start Date End Date No, Physician PCP - General 03/09/23 documented as of this encounter
--- OUTSIDE RECORDS SUMMARY | 2024-10-15 16:13 | XMS_ITS | Encounter Summary ---
Author Organization [facility] Address [facility] [place] [address] Care Team Providers Care Services Engineer Name Role Phone Unavailable Primary Care Provider Unavailabl e Reason for Visit * Auth/Cert Specialty Diagnoses / Procedures Referred By Contac t Referred To Contact Referral ID Status Reason Start Date Expiration Date Visits Re quested Visits Authorized [id number] 1 1 Encounter Details Date Type Department Care Team (Latest Contact Info) Description 02/23/2021 4:20 PM CDT - 03/06/2021 1:00 PM CDT Hospital Encounter HC 6W MOTHER/BABY [address] [place] [address] Fabrice Solis MD [address] [place] [address] UNIVERSITY PRESIDENT Discharge Disposition: Home or Self Care Social [...] from the original note were not included. 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 Oqhz-ear-eruwrzx medication Use an abdominal binder or belly band for comfort as needed, and use compression stockings (available at pharmacies or online at stores like [employer]) for leg swelling. Follow up with provider Order Specific Question Answer Comments Follow Up Instructions: in 2 weeks with high risk clinic at [address] [place] [address], in Maternal Medicine suite on . Sales Administration Manager will call with appointment Phil Umana MD 03/19/2021 8:28 AM Associated attestation - Elisa Krueger MD - 03/26/2021 6:47 PM CDT [facility] ST[facility]FF I have reviewed Oneida Luis [...] stay for more information. Please contact your roll machine operator for the followin. Any burning or itching [...] example: your cell phone and cell phone field artillery officer. PLEASE REMEMBER: 1. Always place your infant [...] - High-risk clinic in 2 weeks - computer processing scheduler to call with appt. * Sabrina Francisco [...] Krueger MD - 03/06/2021 1:44 PM CDT [facility] I have reviewed Oneida Luis [...] case IV access is indicated. * Sabrina Francisco RN - 03/05/2021 5:13 PM CDT Shift [...] bonding occurs Outcome: Progressing * Thom Hali IngramTOSHIA-THERMAL SPRAY OPERATOR - 03/05/2021 10:32 AM CDT PR INTERN OB Progress Note Subjective: Oneida Luis Is [...] Summary Patient Information Patient Name Oneida Luis ([id number]) Legal Sex Female OB History 5 Para [...] PTL: Y A1: 9 A5: 9 Location: [facility] Delivering Clinician: Chelsie Astorga MD Transcribed Labs [...] Blood Loss Admission (Current) from 02/23/2021 in [facility] 5 LDR Estimated Blood Loss 150 [...] 29.7 Comment: H 1.4 18 Matthew Luis [[id number]] Patient Information Patient Name Matthew Luis ([id number]) Legal Sex Male Anesthesia Method: Epidural, IV Narcotic Labor Events labor?: Yes steroids: Full Course GBS Status: negative Antibiotic: clindamycin, other Number of Antibiotic Doses: More than 5 Rupture Date: 03/04/21 Time: 2227 Rupture type: Artificial, Premature, Bulging, Ruptured, Patient Denies Leaking Fluid color: Clear, [place] Fluid odor: Normal Odor Induction: Oxytocin, AROM [...] the patient's : Luis, Baby Boy Oneida [[id number]] Date of 03/04/2021 Time of : 10:41 [...] ACOSTA Initial count verified by: Mahogany ARMSTRONGRN [employer] Lap Pads Sponges Initial counts 0 15 6 0 Added to counts 0 0 0 0 Final counts 0 15 6 0 Final count personnel: DR. LOJA Final count verified by: Mahogany YOST RN Vaginal packing left in?: Neg Accurate final count?: Yes Delivery ([place]) Delivery Date: 03/04/21 Delivery Time: 10:41 PM [...] 34wks. Co-morbidities: - , pelvis proven to [id number], GBS neg, 02/24 2092g/44% - PPROM @ [...] deceleration x 1 > 2 hours ago [place]: q2 min Cervical Exam Dilation (cm): 3.5 [...] decelerations with return to baseline and reacticity [place]: palpating every 4-5min Unable to fully assess [...] 145 baseline, moderate variability, reactive, no decelerations [place]: minimal ctx Cervical exam Dilation (cm): 1.5 [...] 145 bpm, moderate variability, reactive, no decelerations [place]: uterine irritability Cervical Exam Dilation (cm): 1.5 [...] MD 03/04/2021 9:11 AM * Hali Tomas APRN-THERMAL SPRAY OPERATOR - 03/04/2021 8:22 AM CDT PR INTERN MFM Antepartum Progress Note Date: 03/04/2021 Hospital [...] Ht 5' 5 (1.651 m) Wt 174 lb1.6 oz (79 kg) SpO2 100% BMI 28.97 [...] 1631 174 lb 1.6 oz (79 kg) [facility] Labs Component Name 02/26/21 1514 [...] Tomas APRN-CNP - 03/03/2021 8:08 AM CDT PR INTERN MFM Antepartum Progress Note Date: 03/03/2021 Hospital [...] odor to leakage, abdominal tenderness. * Buffy Collado MD - 03/02/2021 6:27 AM CDT PGY-1 [...] Krueger MD - 03/02/2021 3:01 PM CDT [facility] I have reviewed Oneida Luis [...] 10.8* HCT 34.9* 31.6* 33.5* PLTCOUNT [phone] I have the following additions/revision to the [...] once the baby is born. 1:05 PM key worker, Denise Rodriguez, met with pt in her room. Discussed items still needed in the home. Pt stated that she is still in need of some items including additional baby clothes and a Pack N Play for the baby to sleep. SW discussed role as mandated news reporter if cord tissue drug screen results are positive for any illegal or controlled substances; pt verbalized understanding. Discussed ptno longer scheduled for CS, but will be induced on . Discussed PPD and provided PPD information. SW provided W&I Resource Guide. Psychosocial assessment completed. UNIVERSITY PRESIDENT CASE MANAGEMENT PSYCHOSOCIAL ASSESSMENT Reason for Referral: Pt would like help preparing for baby at home Patient diagnosis and relevant medical history: DX: The encounter diagnosis was Premature rupture of membranes, unspecified duration to onset of labor, unspecified gestational age. Father of baby: Shaquille Luis, . Very supportive and involved. Language Barriers: N/A Cultural Barriers: N/A Ethnicity: White/ Lang: MOZAMB[place] Patient's Address: [address] [place] [address] Pt's phone number: [phone] (home) Family Support (name and phone) Extended Emergency Contact Information Primary Emergency Contact: Shaquille Luis Address: [address] [place] [address] Mobile Relation: Spouse Secondary Emergency Contact: JANES SHANNON Mobile Relation: Mother Dairy Processing Supervisor needed? No Alternative Metal And Plastic Heater Family Strengths: Pt stated that her family [...] (Temporary Assistance to Needy Families)- No Food [place]- Yes WIC- Yes SSI- No Insurance: Payor/Plan Subscriber Name Rel Member # Group # MEDICAID AETNA BETTER* ONEIDA LUIS Self [id number] [address] [address] Community Resources Utilized: None identified Designated Group Teacher: [facility] Referrals: Nurses for Newborns- [place] Resident Child protection referral- DFS/DCFS-Name of worker: Phone number: Other- Does the family have the following basic discharge needs? 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 If she is in need of assistance her mother and father provide childcare assistance. Transportation: Pt has her own vehicle. Family planning: The pt and her UNIVERSITY PRESIDENT have discussed family planning. Recommended discharge plan for : to return home with mother. MAXWELL Armstrong [phone] PRN Delivery Crew Member * Buffy Collado MD - 03/01/2021 12:51 [...] baseline 145, moderate variability, reactive, no decelerations [place]: irritable, no contractions BSUS: VTX A/p 1. [...] vaginal leakage, temperature, abdominal tenderness. * Laila Dextre RN - 03/01/2021 8:47 AM CDT 03/01/21 0846 Clinician Communication/Critical Test Notification Reason: Order Clarification Name of Clinician Notified: dr. collado Role: OB Resident Notification Method: Called/Phoned Action Orders Received Comments: questioned if OK to have vascular access team insert Midline since accucath did not last but a few days and stated OK to insert midline * Hali Tomas, DISTRIBUTION SYSTEMS SERVICEPERSON-THERMAL SPRAY OPERATOR - 03/01/2021 8:25 AM CDT .PR INTERN MFM Antepartum Progress Note Date: 03/01/2021 Hospital [...] bilaterally Labs: No new labs to review NST/[place]: See separate procedure note MEDICATIONS FOR CURRENT [...] of Service: 02/28/21 MD Fabrice Mckenna MD [facility] * Tami Cano RN - 02/28/2021 1:45 AM CDT Shift summary: ([id number]) VSS, afebrile, abdomen nontender. pt denies pain, [...] AST, TBIL, TPROT, EGFR in the last 88079 hours. NST/[place]: See separate procedure note MEDICATIONS FOR CURRENT [...] 13:30) or sooner if clinically indicated. ?? Liusana Ye MD 02/27/2021 8:13 AM * Brittnee [...] 3:35 PM CDT Social Work Progress Note key worker, Denise Rodriguez, attempted to meet with pt in her room. Pt was sleeping. SW will followup with pt next week. SW will follow up regarding items pt is still needing in the home at that time. Pt is scheduled for a CS 03/04/21. MAXWELL Armstrong [phone] PRN Delivery Crew Member * Hali Tomas APRN-STEPHIE - 02/26/2021 8:32 AM CDT PR INTERN MFM Antepartum Progress Note Date: 02/26/2021 Hospital [...] signs of infection throughout this shift. * Denise Ye RN - 02/26/2021 12:20 AM CDT [...] AST, TBIL, TPROT, EGFR in the last 71644 hours. NST/[place]: See separate procedure note MEDICATIONS FOR CURRENT [...] of Service: 02/25/21 MD Fabrice Mckenna MD [facility] * Delmy Ribeiro MD - 02/25/2021 5:30 AM CDT PGY2 UNIVERSITY PRESIDENT Progress Note In to see patient for [...] SVE: /-3. A little thinner than I packing checker her last night. At this time there is not much to offer patient in terms of medications. S/p LR and Tylenol w/o relief. Magnesium not indicated. BPs have bee 90/50s therefore Procardia not able to be used. Continue to monitor closely. Delmy Ribeiro MD 02/25/2021 5:30 AM * Delmy Ribeiro MD - 02/25/2021 2:49 AM CDT PGY2 UNIVERSITY PRESIDENT Progress Note In to see patient for [...] MD - 02/24/2021 10:10 PM CDT PGY2 UNIVERSITY PRESIDENT Progress Note In to see patient for [...] Condition Update Name of Clinician Notified: Dr. Umana Role: OB Resident Notification Method: In Person [...] Completed by April Hernandez, NIKKIMS, RDCS * Raina MeadOrestesLizett - 02/24/2021 9:22 AM CDT MS3 [...] AST, TBIL, TPROT, EGFR in the last 73423 hours. NST/[place]: See separate procedure note MEDICATIONS FOR CURRENT [...] of Service: 02/24/21 MD Fabrice Mckenna MD [facility] * Carline Joy RN - 02/23/2021 [...] MD - 02/23/2021 8:07 PM CDT PGY2 UNIVERSITY PRESIDENT Progress Note In to see patient for [...] AM CDT Non-Stress Test (NST) Oneida Luis [id number] 03/03/2021 Gestational age: 33w6d Indications: pprom Interpretation: [...] AM CDT Non-Stress Test (NST) Oneida Luis [id number] 03/03/2021 Gestational age: 33w6d Indications: pprom Interpretation: [...] PM CDT Non-Stress Test (NST) Oneida Luis [id number] 03/03/2021 Gestational age: 33w6d Indications: pprom Interpretation: [...] AM CDT Non-Stress Test (NST) Oneida Luis [id number] 03/02/2021 Gestational age: 33w5d Indications: pprom Interpretation: [...] AM CDT Non-Stress Test (NST) Oneida Luis [id number] 03/02/2021 Gestational age: 33w5d Indications: pprom Interpretation: [...] 135 bpm, moderate variability, reactive, no decelerations [place]: irritable, no contractions A/P: well-being reassuring, continue testing as ordered or as otherwise indicated Buffy Collado MD 03/02/2021 10:24 AM Associated attestation - Elisa Krueger MD - 03/02/2021 12:24 PM CDT I have reviewed the tracing and concur with the resident's description and interpretation. The FHT is reactive using 15x15 bpm criteria. No FHR decelerations lasting >30 seconds were detected. Elisa Krueger MD [facility] ST[facility]FF * Buffy Collado MD - 03/01/2021 [...] 130 bpm, moderate variability, reactive, no decelerations [place]: irritable, no contractions A/P: well-being reassuring, continue testing as ordered or as otherwise indicated Buffy Collado MD 03/02/2021 7:45 AM Associated attestation - Elisa Krueger MD - 03/02/2021 12:24 PM CDT I have reviewed the tracing and concur with the resident's description and interpretation. The FHT is reactive using 15x15 bpm criteria. No FHR decelerations lasting >30 seconds were detected. Elisa Krueger MD [facility] STAFF * Buffy Collado MD - 03/01/2021 [...] 135 bpm, moderate variability, reactive, no decelerations [place]: irritable, no contractions A/P: well-being reassuring, continue testing as ordered or as otherwise indicated Buffy Collado MD 03/02/2021 7:45 AM Associated attestation - Elisa Krueger MD - 03/02/2021 12:23 PM CDT I have reviewed the tracing and concur with the resident's description and interpretation. The FHT is reactive using 15x15 bpm criteria. No FHR decelerations lasting >30 seconds were detected. Elisa Krueger MD [facility] STAFF * Laila Dexter RN - 03/01/2021 [...] PM CDT Non-Stress Test (NST) Oneida Luis [id number] 03/01/2021 Gestational age: 33w4d Indications: pprom Interpretation: [...] AM CDT Non-Stress Test (NST) Oneida Luis [id number] 02/28/2021 Gestational age: 33w3d Indications: pprom Interpretation: [...] AM CDT Non-Stress Test (NST) Oneida Luis [id number] 02/28/2021 Gestational age: 33w3d Indications: pprom Interpretation: [...] AM CDT Non-Stress Test (NST) Oneida Luis [id number] 02/28/2021 Gestational age: 33w3d Indications: pprom Interpretation: [...] OTHER INFORMATION Tami Cano RN Non-Stress Test [facility] Patient Name: Oneida Luis LMP: Patient's last menstrual period was 06/15/2020. Indications: PPROM NST date: 02/27/2021 NST duration: >20 mins Interpretation: Baseline: 135 beats/minute moderate variability Reactive Contractions: Uterine irritability Decelerations: none Impression and Plan: FWB reassuring, continue monitoring as scheduled. Luisana Ye MD 02/28/2021 8:52 AM Associated attestation - Fabrice Solis MD - 02/28/2021 9:28 AM CDT U UNIVERSITY PRESIDENT Attending: I have reviewed the images and [...] Interventions: None Mahsa Sawant RN Non-Stress Test [facility] Patient Name: Oneida Luis LMP: Patient's last menstrual period was 06/15/2020. Indications: PPROM NST date: 02/27/2021 NST duration: >20 mins Interpretation: Baseline: 150 beats/minute moderate variability Reactive Contractions: none Decelerations: none Impression and Plan: FWB reassuring, continue monitoring as scheduled. Luisana Ye MD 02/28/2021 8:52 AM Associated attestation - Fabrice Solis MD - 02/28/2021 9:28 AM CDT [facility] UNIVERSITY PRESIDENT Attending: I have reviewed the images and [...] Interventions: None Mahsa Sawant RN Non-Stress Test [facility] Patient Name: Oneida Luis LMP: Patient's last menstrual period was 06/15/2020. Indications: PPROM NST date: 02/27/2021 NST duration: >20 mins Interpretation: Baseline: 145 beats/minute moderate variability Reactive Contractions: none Decelerations: one shallow variable Impression and Plan: FWB reassuring, continue monitoring as scheduled. Luisana Ye MD 02/28/2021 8:51 AM Associated attestation - Fabrice Solis MD - 02/28/2021 9:29 AM CDT [facility] UNIVERSITY PRESIDENT Attending: I have reviewed the images and [...] OTHER INFORMATION Brittnee Esparza RN Non-Stress Test [facility] Patient Name: Oneida Luis LMP: Patient's last menstrual period was 06/15/2020. Indications: PPROM NST date: 02/26/21 - 02/27/2021 NST duration: >20 mins Interpretation: Baseline: 135 beats/minute moderate variability Reactive [place]: with uterine irritability Decelerations: none Impression and Plan: FWB reassuring, continue monitoring as scheduled. Luisana Ye MD 02/27/2021 8:20 AM Associated attestation - Fabrice Solis MD - 02/27/2021 9:12 AM CDT U UNIVERSITY PRESIDENT Attending: I have reviewed the images and agree with the interpretation for the attached procedure. Fabrice Solis MD * Luisana Ye MD - 02/26/2021 6:58 PM CDT Name: Oneida Luis Date of : 1995 Today's Date: 02/26/2021 [id number] 33w1d NST RESULTS (REA) OBJECTIVE FINDINGS Temp: 98.1 ??F (36.7 ??C), Pulse: 77, Resp: 16, BP: 98/58 NST Indication(s): Premature rupture of membranes Uterine Irritability: Yes Contractions: Irregular Frequency: x2 Duration (sec) Range: 50 Perceived Intensity: Mild OBJECTIVE FINDINGS Movement: Present Monitoring Mode: External Baseline: 145 BPM Variability: Moderate Decelerations: None Accelerations: Yes OTHER INFORMATION Kari Hawley RN Non-Stress Test [facility] Patient Name: Oneida Luis LMP: Patient's last menstrual period was 06/15/2020. Indications: PPROM NST date: 02/26/21 NST duration: >20 mins Interpretation: Baseline: 145 beats/minute moderate variability Reactive Decelerations: None [place]: with uterine irritability Impression and Plan: FWB reassuring, continue monitoring as scheduled. Luisana Ye MD 02/27/2021 8:20 AM Associated attestation - Fabrice Solis MD - 02/28/2021 10:13 AM CDT U UNIVERSITY PRESIDENT Attending: I have reviewed the images and agree with the interpretation for the attached procedure. Fabrice Solis MD * Kari Hawley RN - 02/26/2021 12:36 PM CDT Name: Oneida Luis Date of : 1995 Today's Date: 02/26/2021 [id number] 33w1d NST RESULTS (REA) OBJECTIVE FINDINGS Temp: [...] PM CDT Non-Stress Test (NST) Oneida Luis [id number] 02/26/2021 Gestational age: 33w1d Indications: pprom Interpretation: [...] AM CDT Non-Stress Test (NST) Oneida Luis [id number] 02/25/2021 Gestational age: 33w0d Indications: pprom Interpretation: [...] Moderate Decelerations: None Accelerations: Yes OTHER INFORMATION Jocelyn Christopher RN Associated attestation - Hali Tomas APRN-CNP - 02/26/2021 9:17 AM CDT Non-Stress Test (NST) Oneida Luis [id number] 02/25/2021 Gestational age: 33w0d Indications: pprom Interpretation: Baseline: 130 beats/minute reactive Variability: moderate Contractions: none Decelerations: none Recommendation: Follow up as clinically indicated. AMAURY Patterson * Phil Umana MD - 02/25/2021 6:57 AM CDT Non-Stress Test [facility] Patient Name: Oneida Luis LMP: Patient's last menstrual period was 06/15/2020. Indications: PPROM NST date: 02/24-06/2021 NST duration: >20 mins ([id number]) Interpretation: Baseline: 120 beats/minute mod variability Reactive Contractions: irregular Decelerations: none Impression and Plan: FWB reassuring, continue monitoring as scheduled. Phil Umana MD 02/25/2021 6:57 AM Associated attestation - Fabrice Solis MD - 02/25/2021 9:46 AM CDT U UNIVERSITY PRESIDENT Attending: I have reviewed the images and agree with the interpretation for the attached procedure. Fabrice Solis MD * Phil Umana MD - 02/24/2021 7:59 AM CDT Non-Stress Test [facility] Patient Name: Oneida Luis LMP: Patient's last menstrual period was 06/15/2020. Indications: PPROM NST date: 5614-7813 NST duration: >20 mins Interpretation: Baseline: 120 beats/minute mod variability Reactive Contractions: irregular Decelerations: one late appearing deceleration at 0550 Impression and Plan: FWB reassuring, continue monitoring as scheduled. Phil Umana MD 02/24/2021 7:59 AM Associated attestation - Fabrice Solis MD - 02/24/2021 10:26 AM CDT U UNIVERSITY PRESIDENT Attending: I have reviewed the images and agree with the interpretation for the attached procedure. Fabrice Solis MD documented in this encounter Consult Notes * Denise Rodriguez MSW - 03/05/2021 10:17 AM CDTAssociated Order(s): IP CONSULT TO PILLOWCASE CUTTER SOCIAL SERVICE CONSULT - BRIEF Reason for Referral: Discharge planning for OB concerns CONSULT COMMENT: +UDS MJ Assessment/Interventions/Plan: key workerDenise, received consult. SW received consult and [...] please provide. Pt is an [place] resident. [place] does not accept referrals for +MJ screens alone. Infant to discharge home with mother when medically stable for discharge. SW to follow for cord tissue results. MAXWELL Armstrong [phone] PRN Delivery Crew Member * Gemma Law RN - 03/01/2021 10:02 [...] can dwell up to 30 days per call center operator's recommendation. Change dressing prn or at least weekly. * Denise Rodriguez MSW - 02/25/2021 4:01 PM CDTAssociated Order(s): IP CONSULT TO PILLOWCASE CUTTER SOCIAL SERVICE CONSULT - BRIEF Reason for Referral: Pt would like help preparing for baby at home Assessment/Interventions/Plan: key workerDenise, received consult and will follow up [...] be in her hospital room. MAXWELL Armstrong [phone] PRN Delivery Crew Member * Sabrina Hernandez MD - 02/23/2021 9:26 [...] 32w6d prematurity with mother at bedside including: FAMILY PRACTICE DOCTOR/development - Discussed effects on feeding ability, poor [...] support.Discussed possible need for infant transfer to [facility] early in life. General Morbidity and Mortality - Reviewed survival data for infants of comparable gestational age and birthweight. Impression: 25 year old y/o woman at 32w6d EGA gestation with threatened PTL due to PPROM. Discussed risks of prematurity: intubation/respiratory support, infection, need for central lines, prolonged NICU stay, feeding support, transfer to [facility] morbidity and mortality. Patient expresses understanding. All [...] collect/label syringes. Ordered a breast pump from [employer] per [facility] Insurance- Medicaid. Mom states she tried [...] - 15.6 gm/dL 03/05/2021 8:29 AM CDT [facility] Hematocrit 34.4(L) 35.9 - 45.5 % 03/05/2021 8:29 AM CDT [facility] Blood BLOOD SPECIMEN / Unknown Lab Venipuncture / Unknown 03/05/2021 7:14 AM CDT 03/05/2021 8:22 AM CDT Fabrice Solis MD LAB - HEMATOLOGY ORD ERABLES [facility] [address] [place] [address] * PATHOLOGY TISSUE EXAM (STL) (03/04/2021 11:16 PM CDT) Case Report Surgical Pathology Report ? Case: [id number] ? Authorizing Provider: ??Chelsie Astorga MD ?Collected: ? 03/04/2021 11:16 PM ? Ordering Location: ? [facility] 5 LDR ? Received: ?03/05/2021 08:34 AM ? Pathologist: ? Carline Sorto MD ? Specimen: ?Placenta 3rd Trimester ? 03/08/2021 11:28 AM [facility] Final Diagnosis Placenta, vaginal delivery - Small, hypermature placenta (weight <10th percentile for gestational age) - membranes with no histopathologic abnormality - Three-vessel umbilical cord with no histopathologic abnormality 03/08/2021 11:28 AM [facility] Clinical History The patient is a 25-year-old woman at 34 weeks, 0 days gestation, with premature rupture of membranes 02/13. Procedure/findings: vaginal delivery, baby to NICU. 03/08/2021 11:28 AM [facility] Gross Description The requisition and specimen [...] red-morales, spongy cut surfaces with no lesions. Diabetes Trainer sections submitted as follows: A1-umbilical cord and membrane roll, A2-placental disc central, A3-placental disc peripheral. LJ 03/08/2021 11:28 AM [facility] Microscopic Description Microscopic examination substantiates the above diagnosis. 03/08/2021 11:28 AM [facility] Disclaimer All histochemical and/or immunohistochemical results are interpreted with controls that demonstrate appropriate staining reactions before reporting results. Note on use of immunocytochemistry reagents: This test was developed and its performance characteristic determined by [facility], Department of Laboratory Medicine. It has not [...] interpreted with caution. 03/08/2021 11:28 AM CDT [facility] Embedded Images 03/08/2021 11:28 AM CDT [facility] Pathology/Cytolo gy ENTIRE PLACENTA / Unknown Collection / Unknown 03/04/2021 11:16 PM CDT 03/05/2021 8:34 AM CDT Chelsie Astorga MD LAB - PATHOLOGY /CYTOLOGY ORDERABLES [facility] [address] [place] [address] * (ABNORMAL) BLOOD GASES CORD ARTERIAL (03/04/2021 10:52 PM CDT) pH Cord Arterial 7.30 7.20 - 7.34 pH 03/04/2021 11:04 PM CDT [facility] RESP THERAPY pCO2 Cord Arterial 62(H) 45 - 55 mm hg 03/04/2021 11:04 PM CDT [facility] RESP THERAP[facility] Comment:H pO2 Cord Arterial 16 12 - 25 mm hg 03/04/2021 11:04 PM CDT [facility] RESP THERAPY HCO3 Cord Arterial 29.7(H) 22.0 - 24.0 mmol/L 03/04/2021 11:04 PM CDT [facility] RESP THERAPY Comment:H BE Cord Arterial 1.4 mmol/L 03/04/2021 11:04 PM CDT [facility] RESP THERAPY O2 Saturation Cord Arterial 18 % 03/04/2021 11:04 PM CDT [facility] RESP THERAPY Geronimo's Test N/A 03/04/2021 11:04 PM CDT [facility] RESP THERAPY Sample Site Other 03/04/2021 11:04 PM CDT [facility] RESP THERAPY Sample Type Cord blood Arterial 03/04/2021 11:04 PM CDT [facility] RESP THERAPY [place] [id number] 03/04/2021 11:04 PM CDT [facility] RESP THERAPY Blood, arterial CORD BLOOD SPECIMEN / Unknown 03/04/2021 10:52 PM CDT 03/04/2021 10:52 PM CDT Chelsie Astorga MD LAB - BLOOD GAS ES ORDERABLES Performing Organization Address City/[facility]/ZIP Co de Phone Number [facility] [address] [phone] * (ABNORMAL) BLOOD GASES CORD NANCY (03/04/2021 [...] 03/04/2021 11:05 PM CDT [facility] RESP THERAPY [place] [id number] 03/04/2021 11:05 PM CDT [facility] Blood CORD BLOOD SPECIMEN / Unknown 03/04/2021 10:52 PM CDT 03/04/2021 10:52 PM CDT Chelsie Astorga MD LAB - BLOOD GAS ES ORDERABLES Performing Organization Address City/[facility] Co de Phone Number [facility] [address] [place] [address] * (ABNORMAL) CBC W AUTO DIFFERENTIAL (03/04/2021 7:33 AM CDT) WBC 11.6(H) 4.4 - 10.7 x10E9/L 03/04/2021 7:45 AM CDT [facility] WBC Corrected 03/04/2021 7:45 AM CDT [facility] RBC 3.75(L) 3.80 - 5.20 x10E12/L 03/04/2021 7:45 AM CDT [facility] Hemoglobin 10.7(L) 12.0 - 15.6 gm/dL 03/04/2021 7:45 AM CDT [facility] Hematocrit 32.4(L) 35.9 - 45.5 % 03/04/2021 7:45 AM CDT [facility] MCV 86.4 80.7 - 98.3 fl 03/04/2021 7:45 AM CDT [facility] MCH 28.5 26.7 - 34.0 pg 03/04/2021 7:45 AM CDT [facility] MCHC 33.0 30.8 - 35.9 gm/dL 03/04/2021 7:45 AM CDT [facility] Platelet Count 251 153 - 416 x10E9/L 03/04/2021 7:45 AM CDT [facility] RDW-CV 15.8(H) 12.1 - 14.9 % 03/04/2021 7:45 AM CDT [facility] MPV 9.6 9.4 - 12.9 fl 03/04/2021 7:45 AM CDT [facility] Neutrophils % 64.1 44.0 - 73.0 % 03/04/2021 7:45 AM CDT [facility] Lymphocytes % 22.9 20.0 - 43.0 % 03/04/2021 7:45 AM CDT [facility] Monocytes % 9.7 5.0 - 13.0 % 03/04/2021 7:45 AM CDT [facility] Eosinophils % 2.1 0.0 - 6.0 % 03/04/2021 7:45 AM CDT [facility] Basophils % 0.3 0.0 - 2.0 % 03/04/2021 7:45 AM CDT [facility] Immature Granulocytes 0.9 0 - 1 % 03/04/2021 7:45 AM CDT [facility] Neutrophil Absolute 7.45(H) 2.01 - 7.14 x10E9/L 03/04/2021 7:45 AM CDT [facility] Lymphocytes Absolute 2.67 1.07 - 3.94 x10E9/L 03/04/2021 7:45 AM CDT [facility] Monocytes Absolute 1.13(H) 0.26 - 1.07 x10E9/L 03/04/2021 7:45 AM CDT [facility] Eosinophils Absolute 0.24 0 - 0.47 x10E9/L 03/04/2021 7:45 AM CDT [facility] Basophils Absolute 0.04 0 - 0.08 x10E9/L 03/04/2021 7:45 AM CDT [facility] Immature Granulocytes Absolute 0.11(H) 0.00 - 0.06 x10E9/L 03/04/2021 7:45 AM CDT [facility] nRBC Auto 0 /100 WBC 03/04/2021 7:45 AM CDT [facility] Blood BLOOD SPECIMEN / Unknown Venipuncture / Unknown 03/04/2021 7:33 AM CDT 03/04/2021 7:38 AM CDT Fabrice Solis MD LAB - HEMATOLOGY ORD ERABLES Performing Organization Address City/[facility]/ZIP Co de Phone Number [facility] [address] [place] [address] * TYPE + SCREEN PANEL (03/04/2021 7:33 AM CDT) ABO Rh B POS 03/04/2021 8:20 AM CDT [facility] Comment:History checked. Antibody Screen NEG 8:20 AM CDT [facility] Blood Bank BLOOD SPECIMEN / Unknown Venipuncture / Unknown 03/04/2021 7:33 AM CDT 03/04/2021 7:38 AM CDT Fabrice Solis MD LAB - BLOOD BANK ORD ERABLES [facility] [address] [place] [address] * NON-STRESS TEST (03/03/2021 11:32 PM CDT) [...] INFORMATION Marion Blue RN Fabrice Solis MD [facility] ORDERABLES * NON-STRESS TEST (03/03/2021 6:15 [...] INFORMATION Grisel Pereira RN Fabrice Solis MD [facility] ORDERABLES * NON-STRESS TEST (03/03/2021 11:51 [...] INFORMATION Grisel Pereira RN Fabrice Solis MD [facility] ORDERABLES * NON-STRESS TEST (03/03/2021 12:42 [...] INFORMATION Marion Blue RN Fabrice Solis MD [facility] ORDERABLES * NON-STRESS TEST (03/01/2021 11:52 [...] 130 bpm, moderate variability, reactive, no decelerations [place]: irritable, no contractions A/P: well-being reassuring, continue testing as ordered or as otherwise indicated Buffy Collado MD 03/02/2021 7:45 AM Fabrice Solis MD [facility] ORDERABLES * NON-STRESS TEST (02/28/2021 6:00 [...] None Mahsa Sawant RN Fabrice Solis MD [facility] ORDERABLES * NON-STRESS TEST (02/27/2021 11:26 [...] OTHER INFORMATION Tami Cano RN Non-Stress Test [facility] Patient Name: Oneida Luis LMP: Patient's [...] Interventions: None Mahsa Sawant RN Non-Stress Test [facility] Patient Name: Oneida Luis LMP: Patient's last menstrual period was 06/15/2020. Indications: PPROM NST date: 02/27/2021 NST duration: >20 mins Interpretation: Baseline: ??150 beats/minute moderate variability Reactive Contractions: ??none Decelerations: ??none Impression and Plan: FWB reassuring, continue monitoring as scheduled. Luisana Ye MD 02/28/2021 8:52 AM Fabrice Solis MD [facility] ORDERABLES * NON-STRESS TEST (02/27/2021 6:42 [...] Interventions: None Mahsa Sawant RN Non-Stress Test [facility] Patient Name: Oneida Luis LMP: Patient's last menstrual period was 06/15/2020. Indications: PPROM NST date: 02/27/2021 NST duration: >20 mins Interpretation: Baseline: ??145 beats/minute moderate variability Reactive Contractions: ??none Decelerations: one shallow variable Impression and Plan: FWB reassuring, continue monitoring as scheduled. Luisana Ye MD 02/28/2021 8:51 AM Fabrice Solis MD [facility] ORDERABLES * (ABNORMAL) IRON + TRANSFERRIN PANEL (02/26/2021 3:14 PM CDT) Pathologist [facility] Iron 43(L) 50 - 170 ug/dL 02/26/2021 3:44 PM CDT [facility] Comment:Attention clinician: Reference Range change. Transferrin 399(H) 180 - 382 mg/dL 02/26/2021 3:44 PM CDT [facility] Comment:Attention clinician: Reference Range change. TIBC Calculated 499(H) 240 - 450 ug/dL 02/26/2021 3:44 PM CDT [facility] Iron Saturation % 9(L) 20 - 50 % 02/26/2021 3:44 PM CDT [facility] Blood BLOOD SPECIMEN / Unknown Venipuncture / Unknown 02/26/2021 3:14 PM CDT 02/26/2021 3:25 PM CDT Hali Tomas APRN-THERMAL SPRAY OPERATOR LAB - PIG MACHINE OPERATOR HELPER RY ORDERABLES [facility] [address] [place] [address] * FERRITIN (02/26/2021 3:14 PM CDT) [facility] Ferritin 7 5 - 204 ng/mL 02/26/2021 4:12 PM CDT [facility] Blood BLOOD SPECIMEN / Unknown Venipuncture / Unknown 02/26/2021 3:14 PM CDT 02/26/2021 3:25 PM CDT Hali Tomas TOSHIA-THERMAL SPRAY OPERATOR LAB - PIG MACHINE OPERATOR HELPER RY ORDERABLES Performing Organization Address [facility] Co de Phone Number [facility] [address] [place] [address] * TYPE + SCREEN PANEL (02/26/2021 3:14 PM CDT) Pathologist [facility] ABO Rh B POS 02/26/2021 4:55 PM CDT [facility] Comment:History checked. Antibody Screen NEG 4:55 PM CDT [facility] Blood Bank BLOOD SPECIMEN / Unknown Venipuncture / Unknown 02/26/2021 3:14 PM CDT 02/26/2021 3:25 PM CDT Hali Tomas TOSHIA-THERMAL SPRAY OPERATOR LAB - BLOOD B ANK ORDERABLES Performing Organization Address [facility] de Phone Number [facility] [address] [place] [address] * (ABNORMAL) CBC W AUTO DIFFERENTIAL (02/26/2021 3:14 PM CDT) Pathologist [facility] WBC 10.1 4.4 - 10.7 x10E9/L 02/26/2021 3:32 PM CDT [facility] WBC Corrected 02/26/2021 3:32 PM CDT [facility] RBC 3.96 3.80 - 5.20 x10E12/L 02/26/2021 3:32 PM CDT [facility] Hemoglobin 11.3(L) 12.0 - 15.6 gm/dL 02/26/2021 3:32 PM CDT [facility] Hematocrit 34.9(L) 35.9 - 45.5 % 02/26/2021 3:32 PM CDT [facility] MCV 88.1 80.7 - 98.3 fl 02/26/2021 3:32 PM CDT [facility] MCH 28.5 26.7 - 34.0 pg 02/26/2021 3:32 PM CDT [facility] MCHC 32.4 30.8 - 35.9 gm/dL 02/26/2021 3:32 PM CDT [facility] Platelet Count 271 153 - 416 x10E9/L 02/26/2021 3:32 PM CDT [facility] RDW-CV 15.7(H) 12.1 - 14.9 % 02/26/2021 3:32 PM CDT [facility] MPV 9.7 9.4 - 12.9 fl 02/26/2021 3:32 PM CDT [facility] Neutrophils % 64.7 44.0 - 73.0 % 02/26/2021 3:32 PM CDT [facility] Lymphocytes % 23.4 20.0 - 43.0 % 02/26/2021 3:32 PM CDT [facility] Monocytes % 10.0 5.0 - 13.0 % 02/26/2021 3:32 PM CDT [facility] Eosinophils % 0.9 0.0 - 6.0 % 02/26/2021 3:32 PM CDT [facility] Basophils % 0.1 0.0 - 2.0 % 02/26/2021 3:32 PM CDT [facility] Immature Granulocytes 0.9 0 - 1 % 02/26/2021 3:32 PM CDT [facility] Neutrophil Absolute 6.57 2.01 - 7.14 x10E9/L 02/26/2021 3:32 PM CDT [facility] Lymphocytes Absolute 2.37 1.07 - 3.94 x10E9/L 02/26/2021 3:32 PM CDT [facility] Monocytes Absolute 1.01 0.26 - 1.07 x10E9/L 02/26/2021 3:32 PM CDT [facility] Eosinophils Absolute 0.09 0 - 0.47 x10E9/L 02/26/2021 3:32 PM CDT [facility] Basophils Absolute 0.01 0 - 0.08 x10E9/L 02/26/2021 3:32 PM CDT [facility] Immature Granulocytes Absolute 0.09(H) 0.00 - 0.06 x10E9/L 02/26/2021 3:32 PM CDT [facility] nRBC Auto 0 /100 WBC 02/26/2021 3:32 PM CDT [facility] Blood BLOOD SPECIMEN / Unknown Venipuncture / Unknown 02/26/2021 3:14 PM CDT 02/26/2021 3:25 PM CDT Hali Tomas [employer] SERVICEPERSON-THERMAL SPRAY OPERATOR LAB - HEMATOL OGY ORDERABLES Performing Organization Address [facility]/State/[facility] Co de Phone Number [facility] [address] [place] [address] * SONOGRAM - COMPLETE (02/24/2021 9:45 AM CDT) Anatomical Region Laterality Modality Other 02/24/2021 9:45 AM CDT Narrative 02/24/2021 11:55 AM CDT ?[facility] [place] [facility] ?PHONE: ??FAX: Pat. Name: ?ONEIDA LUIS. No: ?[id number] Study Date: ?? 02/24/2021 ??9:45am , Age: ? 1995, 25 Pregnancies: ?? 5, Para 3, Ab 1 Height: ? 65 in Weight: ? 166 lb LMP: ?Unknown GA by Base: ?? 32w6d ?? SRINIVASA: 04/15/2021 GA by US: ? 33w1d ?? SRINIVASA: 04/13/2021 GA Selected: ??32w6d (From [facility]) SRINIVASA: ?04/15/2021 Referring MD: Junie Brizuela MD Structural Iron Erector: ??April Hernandez, RDMS, RDCS CPT4: ? 70316 BMI: ?27.62 Room: ? 540 Hist/Ind: ? Unknown LMP ?Hx ?EIF ?PPROM MEASUREMENTS & AGE ? GROWTH EVALUATION Measurement ??GA ? Range ? Srce %for GA Ratios ----- ---- ------- BPD ??8.4 cm 33w6d (74d5w-91g1k) Hadl BPD 71% FL/BPD 0.71 (0.71 - 0.87* HC ??30.7 cm 34w1d (11d0y-38a2n) Hadl HC ??49% FL/AC ??0.20 (0.20 - 0.24) AC ??29.7 cm 33w5d (49a4i-92t6m) Hadl AC ??74% HC/AC ??1.03 (0.95 - 1.14) FL ?? 6.0 cm 31w0d (05e9b-61h7o) Hadl FL ??5% CI ? 0.77 (0.70 - 0.86) HL ?? 5.2 cm 30w1d (13d2k-69d8d) Cyril HL ??6% GA for sonogram 33w1d (34r3l-24o0r) ?? Weight Estimate: based on (BPD,HC,AC,FL) Avg [...] ?<Electronic Signature> ??02/24/2021 11:55am Fabrice Solis MD [facility] ORDERABLES * (ABNORMAL) MAGNESIUM BLOOD (02/24/2021 1:45 AM CDT) [facility] Magnesium 6.0(HH) 1.6 - 2.6 mg/dL 02/24/2021 2:30 AM CDT [facility] Blood BLOOD SPECIMEN / Unknown Lab Venipuncture / Unknown 02/24/2021 1:45 AM CDT 02/24/2021 1:59 AM CDT Fabrice Solis MD LAB - CHEMISTRY YIMI MACIAS [facility] [address] [id number] * (ABNORMAL) FIBRINOGEN ACTIVITY (02/24/2021 1:45 AM CDT) Fibrinogen 418(H) 200 - 400 mg/dL 02/24/2021 2:13 AM CDT [facility] Blood BLOOD SPECIMEN / Unknown Lab Venipuncture / Unknown 02/24/2021 1:45 AM CDT 02/24/2021 1:59 AM CDT Fabrice Solis MD LAB - COAGULATION OR DERABLES Performing Organization Address [facility] de Phone Number [facility] [address] [place] [phone] * PTT (02/24/2021 1:45 AM CDT) Pathologist [facility] PTT 23.9 23.0 - 38.4 sec 02/24/2021 2:12 AM CDT [facility] Blood BLOOD SPECIMEN / Unknown Lab Venipuncture / Unknown 02/24/2021 1:45 AM CDT 02/24/2021 1:59 AM CDT Narrative [facility] - 02/24/2021 2:12 AM CDT Heparin Therapeutic Range for PTT: ??71.0 - 109.0 seconds. Fabrice Solis MD LAB - COAGULATION OR DERABLES Performing Organization Address [facility] de Phone Number [facility] [address] [place] [phone] * PT-INR (02/24/2021 1:45 AM CDT) Pathologist [facility] PT 13.3 12.1 - 14.8 sec 02/24/2021 2:11 AM CDT [facility] INR 1.0 0.9 - 1.1 02/24/2021 2:11 AM CDT [facility] Blood BLOOD SPECIMEN / Unknown Lab Venipuncture / Unknown 02/24/2021 1:45 AM CDT 02/24/2021 1:59 AM CDT Narrative [facility] - 02/24/2021 2:11 AM CDT Conventional Warfarin Anticoagulant Therapy: INR Reference Range: ??2.0-3.0 Intensive Warfarin Anticoagulant Therapy: INR Reference Range: ? 2.5-3.5 Fabrice Solis MD LAB - COAGULATION OR DERABLES Performing Organization Address City/State/[facility] Co de Phone Number [facility] [address] [place], [place] [id number] * (ABNORMAL) CBC W AUTO DIFFERENTIAL (02/24/2021 1:45 AM CDT) WBC 10.5 4.4 - 10.7 x10E9/L 02/24/2021 2:04 AM CDT [facility] WBC Corrected 02/24/2021 2:04 AM CDT [facility] RBC 3.65(L) 3.80 - 5.20 x10E12/L 02/24/2021 2:04 AM CDT [facility] Hemoglobin 10.3(L) 12.0 - 15.6 gm/dL 02/24/2021 2:04 AM CDT [facility] Hematocrit 31.6(L) 35.9 - 45.5 % 02/24/2021 2:04 AM CDT [facility] MCV 86.6 80.7 - 98.3 fl 02/24/2021 2:04 AM CDT [facility] MCH 28.2 26.7 - 34.0 pg 02/24/2021 2:04 AM CDT [facility] MCHC 32.6 30.8 - 35.9 gm/dL 02/24/2021 2:04 AM CDT [facility] Platelet Count 246 153 - 416 x10E9/L 02/24/2021 2:04 AM CDT [facility] RDW-CV 15.0(H) 12.1 - 14.9 % 02/24/2021 2:04 AM CDT [facility] MPV 9.7 9.4 - 12.9 fl 02/24/2021 2:04 AM CDT [facility] Neutrophils % 86.9(H) 44.0 - 73.0 % 02/24/2021 2:04 AM CDT [facility] Lymphocytes % 10.6(L) 20.0 - 43.0 % 02/24/2021 2:04 AM CDT [facility] Monocytes % 1.9(L) 5.0 - 13.0 % 02/24/2021 2:04 AM CDT [facility] Eosinophils % 0.0 0.0 - 6.0 % 02/24/2021 2:04 AM CDT [facility] Basophils % 0.0 0.0 - 2.0 % 02/24/2021 2:04 AM CDT [facility] Immature Granulocytes 0.6 0 - 1 % 02/24/2021 2:04 AM CDT [facility] Neutrophil Absolute 9.14(H) 2.01 - 7.14 x10E9/L 02/24/2021 2:04 AM CDT [facility] Lymphocytes Absolute 1.12 1.07 - 3.94 x10E9/L 02/24/2021 2:04 AM CDT [facility] Monocytes Absolute 0.20(L) 0.26 - 1.07 x10E9/L 02/24/2021 2:04 AM CDT [facility] Eosinophils Absolute 0.00 0 - 0.47 x10E9/L 02/24/2021 2:04 AM CDT [facility] Basophils Absolute 0.00 0 - 0.08 x10E9/L 02/24/2021 2:04 AM CDT [facility] Immature Granulocytes Absolute 0.06 0.00 - 0.06 x10E9/L 02/24/2021 2:04 AM CDT [facility] nRBC Auto 0 /100 WBC 02/24/2021 2:04 AM CDT [facility] Blood BLOOD SPECIMEN / Unknown Lab Venipuncture / Unknown 02/24/2021 1:45 AM CDT 02/24/2021 1:59 AM CDT Fabrice Solis MD LAB - HEMATOLOGY ORD ERABLES [facility] [address] [place] [address] * (ABNORMAL) DRUG SCREEN TOX URINE PANEL (02/23/2021 6:23 PM CDT) [facility] Amphetamines Screen Urine Not detected Not detected 02/23/2021 7:09 PM CDT [facility] Barbiturates Screen Urine Not detected Not detected 02/23/2021 7:09 PM CDT [facility] Benzodiazepines Screen Urine Not detected Not detected 02/23/2021 7:09 PM CDT [facility] Cannabinoids Screen Urine Detected(A) Not detected 02/23/2021 7:09 PM CDT [facility] Cocaine Screen Urine Not detected Not detected 02/23/2021 7:09 PM CDT [facility] Fentanyl Urine Not detected Not detected 02/23/2021 7:09 PM CDT [facility] Methadone Screen Urine Not detected Not detected 02/23/2021 7:09 PM CDT [facility] Opiate Screen Urine Not detected Not detected 02/23/2021 7:09 PM CDT [facility] Phencyclidine Screen Urine Not detected Not detected 02/23/2021 7:09 PM CDT [facility] Urine URINE / Unknown Collection / Unknown 02/23/2021 6:23 PM CDT 02/23/2021 6:39 PM CDT [facility] - 02/23/2021 7:09 PM CDT This [...] MD LAB - URINE CHEMISTR Y ORDERABLES [facility] [address] [place], [place] [id number] * TRICHOMONAS RAPID TEST (02/23/2021 6:22 PM CDT) Trichomonas Rapid Test Negative Negative 02/23/2021 7:05 PM CDT [facility] Microbiology VAGINAL SWAB / Unknown Collection / Unknown 02/23/2021 6:22 PM CDT 02/23/2021 6:39 PM CDT Fabrice Solis MD LAB - MICROBIOLOGY O RDERABLES Performing Organization Address [facility] Co de Phone Number [facility] [address] [place] [id number] * CHLAMYDIA + GC AMPLIFIED PROBE (STL) (02/23/2021 6:22 PM CDT) Chlamydia Amplified Probe Negative Negative 02/24/2021 5:54 AM CDT [facility] GC Amplified Probe Negative Negative 02/24/2021 5:54 AM CDT [facility] Microbiology PART OF UTERINE CERVIX / Unknown Collection / Unknown 02/23/2021 6:22 PM CDT 02/23/2021 6:39 PM CDT Narrative [facility] - 02/24/2021 5:54 AM CDT Results based on detection/no detection of ribosomal RNA by amplified method. Fabrice Solis MD LAB - MICROBIOLOGY O RDERABLES Performing Organization Address [facility] Co de Phone Number [facility] [address] [phone] * BLOOD TYPE VERIFICATION (02/23/2021 6:21 PM CDT) ABO Rh B POS 02/23/2021 7:0 4 PM CDT [facility] Blood Bank BLOOD SPECIMEN / Unknown Venipuncture / Unknown 02/23/2021 6:21 PM CDT 02/23/2021 6:33 PM CDT Fabrice Solis MD LAB - BLOOD BANK ORD ERABLES Performing Organization Address [place]/[facility] Co de Phone Number [facility] [address] [place] [id number], [facility] [phone] * CULTURE STREP B (02/23/2021 6:20 PM CDT) Culture Strep B Negative for beta-hemolytic Streptococcus Group B ARTIE 02/27/2021 5:36 AM CDT [facility] Microbiology MISCELLANEOUS SAMPLES / Unknown Collection / Unknown 02/23/2021 6:20 PM CDT 02/23/2021 6:39 PM CDT Fabrice Solis MD LAB - MICROBIOLOGY O RDERABLES Performing Organization Address [facility]/ZIP Co de Phone Number [facility] [address] [phone] * (ABNORMAL) RUPTURE OF MEMBRANES EVAL (02/23/2021 5:35 PM CDT) RUPTURE OF MEMBRANES POSITIVE(A ) NEGATIVE 02/23/2021 5:47 PM CDT [facility] Fluid VAGINAL SWAB / Unknown Collection / Unknown 02/23/2021 5:35 PM CDT 02/23/2021 5:38 PM CDT Narrative [facility] - 02/23/2021 5:47 PM CDT [...] BODY FLUID ORD ERABLES Performing Organization Address City/[facility]/ZIP Co de Phone Number [facility] [address] [place] [address] * (ABNORMAL) CBC W AUTO DIFFERENTIAL (02/23/2021 [...] - 416 x10E9/L 02/23/2021 5:52 PM CDT [facility] RDW-CV 15.3(H) 12.1 - 14.9 % 02/23/2021 5:52 PM CDT [facility] MPV 10.4 9.4 - 12.9 fl 02/23/2021 5:52 PM CDT [facility] Neutrophils % 89.5(H) 44.0 - 73.0 % 02/23/2021 5:52 PM CDT [facility] Lymphocytes % 8.4(L) 20.0 - 43.0 % 02/23/2021 5:52 PM CDT [facility] Monocytes % 1.3(L) 5.0 - 13.0 % 02/23/2021 5:52 PM CDT [facility] Eosinophils % 0.1 0.0 - 6.0 % 02/23/2021 5:52 PM CDT [facility] Basophils % 0.1 0.0 - 2.0 % 02/23/2021 5:52 PM CDT [facility] Immature Granulocytes 0.6 0 - 1 % 02/23/2021 5:52 PM CDT [facility] Neutrophil Absolute 12.02(H) 2.01 - 7.14 x10E9/L 02/23/2021 5:52 PM CDT [facility] Lymphocytes Absolute 1.13 1.07 - 3.94 x10E9/L 02/23/2021 5:52 PM CDT [facility] Monocytes Absolute 0.17(L) 0.26 - 1.07 x10E9/L 02/23/2021 5:52 PM CDT [facility] Eosinophils Absolute 0.02 0 - 0.47 x10E9/L 02/23/2021 5:52 PM CDT [facility] Basophils Absolute 0.02 0 - 0.08 x10E9/L 02/23/2021 5:52 PM CDT [facility] Immature Granulocytes Absolute 0.08(H) 0.00 - 0.06 x10E9/L 02/23/2021 5:52 PM CDT [facility] nRBC Auto 0 /100 WBC 02/23/2021 5:52 PM CDT [facility] Blood BLOOD SPECIMEN / Unknown Lab Venipuncture / Unknown 02/23/2021 4:53 PM CDT 02/23/2021 5:47 PM CDT Fabrice Solis MD LAB - HEMATOLOGY ORD ERABLES [facility] [address] [place] [address] * TYPE + SCREEN PANEL (02/23/2021 4:53 PM CDT) ABO Rh B POS 02/23/2021 6:28 PM CDT [facility] Comment:No history; collect retype. Antibody Screen NEG 6:28 PM CDT [facility] Blood Bank BLOOD SPECIMEN / Unknown Lab Venipuncture / Unknown 02/23/2021 4:53 PM CDT 02/23/2021 5:47 PM CDT Fabrice Solis MD LAB - BLOOD BANK ORD ERABLES [facility] [address] [place] [address], [facility] [phone] documented in this encounter Visit Diagnoses Diagnosis [...] membranes (PPROM) with unknown onset of labor ([facility]) Hx of section Other postprocedural status Herpes [...] ultrasound to assess interval growth of fetus ([facility]) documented in this encounter Administered Medications Inactive [...]
--- OUTSIDE RECORDS SUMMARY | 2024-10-15 16:13 | XMS_ITS | Encounter Summary ---
Author Organization [facility] Address [address] [place] [address] Care Team Providers Care Lighting Engineer Name Role Phone Unavailable Primary Care Provider Unavailabl e Reason for Visit * Reason Onset Date Comments Missed Appointment 12/02/2020 missed 11/30/20 Encounter Details Date Type Department Care Team (Late st Contact Info) Description 12/02/2020 Telephone [facility] & [facility] [address] [place] [address] Igor Siegel Missed Appointment (missed 11/30/20) Social [...] for her to call back to reschedule. RER GENERAL documented in this encounter Plan of Treatment Not on file documented as of this encounter Visit Diagnoses Not on filedocumented in this encounter
--- OUTSIDE RECORDS SUMMARY | 2024-10-15 16:13 | XMS_ITS | Encounter Summary ---
Author Organization [facility] Address [address] [place] [address] Care Team Providers Care Project Planner Name Role Phone Unavailable Primary Care Provider Unavailabl e Reason for Visit * Reason Comments Ultrasound Encounter Details Date Type Department Care Team (Latest Contact Info) Description 01/06/2021 10:06 AM OPERATIONS LOGISTICS ANALYST - 01/06/2021 11:59 PM OPERATIONS LOGISTICS ANALYST Hospital Encounter [facility]aternal [facility] Care [address] [place] [address] Tima Bejarano MD Discharge Disposition: Home or [...] - COMPLETE Routine 01/06/2021 1 0:14 AM OPERATIONS LOGISTICS ANALYST Fifth (HCC) Encounter for ultrasound (HCC) Hx of section documented in this encounter Results * SONOGRAM - COMPLETE (01/06/2021 10:14 AM OPERATIONS LOGISTICS ANALYST) Anatomical Region Laterality Modality Other 01/06/2021 10:1 4 AM OPERATIONS LOGISTICS ANALYST Narrative 01/06/2021 11:11 AM OPERATIONS LOGISTICS ANALYST ? - [facility] ? [facility] ?PHONE: ??FAX: ? Pat. Name: ?HANNAH PYLE Pat. No: ?[id number] Study Date: ?? 01/06/2021 ??10:14am , Age: ? 1995, 25 Pregnancies: ?? 5, Para 3, Ab 1 Height: ? 65 in Weight: ? 166 lb LMP: ?Unknown GA by Base: ?? 25w6d ?? SRINIVASA: 04/15/2021 GA by US: ? 25w6d ?? SRINIVASA: 04/15/2021 GA Selected: ??25w6d (From [facility]) SRINIVASA: ?04/15/2021 Referring MD: Junie Brizuela MD Catalog Specialist: ??Suha Downey RDMS CPT4: ? 40803 BMI: ?27.62 Hist/Ind: ? Unknown LMP ?Hx MEASUREMENTS & AGE ? GROWTH EVALUATION Measurement ??GA ? Range ? Srce %for GA Ratios ----- ---- ------- BPD ??6.6 cm 26w4d (87l3s-86p3m) Hadl BPD 63% FL/BPD 0.71 (0.71 - 0.87) HC ??24.1 cm 26w1d (01s3n-75n4o) Hadl HC ??35% FL/AC ??0.21 (0.20 - 0.24) AC ??22.6 cm 27w0d (54h2d-48h3j) Hadl AC ??74% HC/AC ??1.07 (1.01 - 1.20) FL ?? 4.7 cm 25w4d (71j9e-25g9r) Hadl FL ??28% CI ? 0.77 (0.70 - 0.86) HL ?? 4.5 cm 26w5d (49k6a-54y3k) Cyril HL ??64% Cere 3.0 cm 26w3d (48g2l-80a1n) Hill Cere64% NB ?? 0.8 cm ? (44s5w-37y5w) Sone NB ??28% GA for sonogram 25w6d (46m6n-48v7h) ?? Weight Estimate: based on (BPD,HC,AC,FL) Hadlock [...] <Electronic Signature> ??01/06/2021 11:10am Tima Bejarano MD [facility] ORDERABLES documented in this encounter Visit Diagnoses Diagnosis Fifth (HCC) state, incidental Encounter for ultrasound ([facility]) Encounter for routine screening for malformation using ultrasonics Hx of section Other postprocedural status Herpes Herpes simplex without mention of complication Encounter for screening for uncertain dates (HCC) 25 weeks gestation of (HCC) state, incidental documented in this encounter
--- OUTSIDE RECORDS SUMMARY | 2024-10-15 16:13 | XMS_ITS | Encounter Summary ---
Author Organization [facility] Address [address] [place] [address] Care Team Providers Care Logging Assistant Name Role Phone No, Physician Primary Care Provider [phone] Encounter Details Date Type Department Care Team (Late st Contact Info) Description 08/29/2023 Telephone [facility] [address] [place] [address] Elena Veliz LPN Social History [...] How often do you attend chur or bahai services? More than 4 times per year 08/22/2023 Do you belong to any clubs o r organizations such as confucianist groups, unions, fraternal or athletic groups, or [...] staff should administer the PHQ-9) 0 08/22/2023 [facility] - Occupational Stress Questionnaire Answer Date [...] in a nursing home (including now)? No 08/22/2023 Comments Yes [...] - 08/29/2023 1:15 PM CDT Normal GBS finance broker sent. * Telephone Encounter - Elena Veliz LPN - 08/29/2023 1:15 PM CDT ----- Message from Margareth Herrera DO sent at 08/29/2023 12:42 PM CDT ----- Please inform the patient her GBS was negative. documented in this encounter Plan of Treatment Not on file documented as of this encounter Visit Diagnoses Not on filedocumented in this encounter Care Teams Logging Assistant Relationship Specialty Start Date End Date No, Physician PCP - General 03/09/23 documented as of this encounter
--- OUTSIDE RECORDS SUMMARY | 2024-10-15 16:13 | XMS_ITS | Encounter Summary ---
Author Organization [facility] Healthcare Address [address] [place] [address] Care Team Providers Care Manager Council Name Role Phone No, Physician Primary Care Provider [phone] Margareth Herrerabeth DO Unavailable [phone] Reason for Visit * Auth/Cert (Routine) Specialty Diagnoses / Procedures Referred By Lenora t Referred To Contact Diagnoses Request for sterilization Request for sterilization [Z30.2] Procedures TN LIG/TRNSXJ FLP TUBE ABDL/VAG SPX SALPINGECTOMY Referral ID Status Reason Start Date Expiration Date Visits Re quested Visits Authorized [id number] 1 1 Encounter Details Date Type Department Care Team (Late st Contact Info) Description 09/05/2023 7:47 AM STAIN MAKER Anesthesia Event [facility] Operating Room [address] [place] [address] [place] [address] [facility] [place] [address] [place] [address] [id number] Anesthesia Record Procedure Summary Procedure Name Responsible [...] Bilateral; Abdomen; 10/01/24 (Retired LDA, Removed/Completed by [facility] with LDA Utility); 1213 (Retired LDA, Removed/Completed by [facility] with LDA Utility) 09/05/23 0828 by [...] How often do you attend chur or islam services? More than 4 times per year 09/01/2023 Do you belong to any clubs o r organizations such as restoration groups, unions, fraternal or athletic groups, or [...] staff should administer the PHQ-9) 0 09/01/2023 [facility] of Occupat ional Health - Occupational Stress [...] in a senior care (including now)? No 09/01/2023 Personal Safety Answer [...] Procedure Summary Date: 09/05/23 Room / Location: [facility] OR [address] [place] [address] OPERATING ROOM Anesthesia Start: 746 Anesthesia Stop: [...] Nausea/Vomiting status: none No notable events documented. N MAKER * Anesthesia Procedure Notes - Larry Parsons CRNA - 09/05/2023 8:00 AM STAIN MAKER Associated Order(s): Airway Airway Patient location: OR Urgency: elective Indications for airway management: anesthesia Difficult airway: no Staff: Placed by: BUSINESS OBJECTS REPORT DEVELOPER: Larry Parsons CRNA Emergent airway documentation: Risks [...] with: silk tape Number of attempts: 1 N MAKER * Anesthesia Preprocedure Evaluation - Elisa Betancur MD - 09/05/2023 6:59 AM STAIN MAKER Images from the original note were not included. Anesthesia Evaluation Hannah Luis is a 28 y.o. female Procedure(s): SALPINGECTOMY Pre-Op Diagnosis Codes: * Request for sterilization [Z30.2] HISTORY Past Medical History Information obtained from: patient and chart. Neurological + Psychiatric history - anxiety Pertinent negatives: seizures and CVA/stroke Cardiovascular Pertinent negatives: hypertension ; TN ; pacemaker/ICD and negative for CHF Respiratory [...] Medication protocol when under care of a BUSINESS OBJECTS REPORT DEVELOPER Planned anesthesia: General Comments: Low dose prop gtt intra-op for PONV Induction: Induction: intravenous. Postoperative Plan: No postoperative mechanical ventilation intended. Informed Consent: Discussed plan with BUSINESS OBJECTS REPORT DEVELOPER. Anesthesia plan and risks discussed with patient. Consent and Attending signature: I and/or my designee have discussed the anesthesia plan, benefits, possible alternatives, parental presence at time of induction (if indicated), and clinically relevant risks that may include dental injury, unintentional awareness, and/or other complications. The patient and/or parent/legal guardian understand, and agree to proceed. All questions answered. N MAKER N MAKER documented in this encounter Plan of Treatment Not on file documented as of this encounter Procedures Procedure Name Priority Date/Time Associated Diagnosis Comments TN AN ELECTIVE ENDOTRACHEAL AIRWAY Routine 09/05/2023 8:00 AM STAIN MAKER documented in this encounter Results * TN AN ELECTIVE ENDOTRACHEAL AIRWAY (09/05/2023 8:00 AM STAIN MAKER) Narrative Larry Parsons CRNA - 09/05/2023 8:00 AM STAIN MAKER Larry Parsons CRNA ? 09/05/2023 ??8:00 AM Airway Patient location: OR Urgency: elective Indications for airway management: anesthesia Difficult airway: no Staff: Placed by: BUSINESS OBJECTS REPORT DEVELOPER: Larry Parsons CRNA Emergent airway documentation: Risks [...] 0757, Anesthesia Intra-op Given 09/05/2023 7:57 AM STAIN MAKER 2,000 mg dexAMETHasone (DECADRON) injection solution intravenous, Administer over 2 Minutes, As needed, Starting on Mon09/05/23 at 0755, Anesthesia Intra-op Given 09/05/2023 7:55 AM STAIN MAKER 10 mg dexmedeTOMIDine in 0.9% sodium chloride (PRECEDEX) 200 mcg/50 mL (4 mcg/mL) infusion (premix) intravenous, As needed, Starting on Mon09/05/23 at 0809, Anesthesia Intra-op Given 09/05/2023 8:17 AM STAIN MAKER 4 mcg Given 09/05/2023 8:12 AM STAIN MAKER 4 mcg Given 09/05/2023 8:09 AM STAIN MAKER 4 mcg diphenhydrAMINE (BENADRYL) 50 mg/mL injection intravenous, Administer over 2 Minutes, As needed, Starting on Mon09/05/23 at 0755, Anesthesia Intra-op Given 09/05/2023 7:55 AM STAIN MAKER 25 mg esmoloL (BREVIBLOC) injection intravenous, Administer over 1 Minutes, As needed, Starting on Mon09/05/23 at 0751, Anesthesia Intra-op Given 09/05/2023 7:51 AM STAIN MAKER 50 mg fentaNYL (SUBLIMAZE) preservative free injection intravenous, As needed, Starting on Mon09/05/23 at 0807, Anesthesia Intra-op Given 09/05/2023 8:53 AM STAIN MAKER 50 mcg Given 09/05/2023 8:07 AM STAIN MAKER 50 mcg ketamine (KETALAR) 50 mg/5 mL (10 mg/mL) in sodium chloride 0.9% (premix) intravenous, As needed, Starting on Mon09/05/23 at 0802, Anesthesia Intra-op Given 09/05/2023 8:02 AM STAIN MAKER 30 mg ketorolac (TORADOL) 30 mg/mL (1 mL) injection intravenous, As needed, Starting on Mon09/05/23 at 0755, Anesthesia Intra-op Given 09/05/2023 7:55 AM STAIN MAKER 30 mg Lactated Ringer's (LR) infusion 30 mL/hr, intravenous, Continuous, Starting on Mon09/05/23 at 0645, Pre-Op New Bag 09/05/2023 7:46 AM STAIN MAKER lidocaine (XYLOCAINE) 20 mg/mL (2 %) preservative free injection intravenous, As needed, Starting on Mon09/05/23 at 0750, Anesthesia Intra-op Given 09/05/2023 7:50 AM STAIN MAKER 100 mg midazolam (VERSED) 1 mg/mL preservative free injection intravenous, Administer over 2 Minutes, As needed, Starting on Mon09/05/23 at 0746, Anesthesia Intra-op Given 09/05/2023 7:46 AM STAIN MAKER 2 mg ondansetron (ZOFRAN) injection intravenous, Administer over 2 Minutes, As needed, Starting on Mon09/05/23 at 0806, Anesthesia Intra-op Given 09/05/2023 8:06 AM STAIN MAKER 4 mg propofoL (DIPRIVAN) 10 mg/mL IV intravenous, As needed, Starting on Mon09/05/23 at 0751, Anesthesia Intra-op Given 09/05/2023 8:38 AM STAIN MAKER 20 mg Given 09/05/2023 8:34 AM STAIN MAKER 20 mg Given 09/05/2023 8:30 AM STAIN MAKER 20 mg rocuronium (ZEMURON) injection intravenous, As needed, Starting on Mon09/05/23 at 0803, Anesthesia Intra-op Given 09/05/2023 8:03 AM STAIN MAKER 30 mg succinylcholine (ANECTINE) injection intravenous, As needed, Starting on Mon09/05/23 at 0751, Anesthesia Intra-op Given 09/05/2023 7:51 AM STAIN MAKER 160 mg sugammadex (BRIDION) 100 mg/mL intravenous solution intravenous, As needed, Starting on Mon09/05/23 at 0841, Anesthesia Intra-op Given 09/05/2023 8:41 AM STAIN MAKER 200 mg documented in this encounter Care Teams Manager Council Relationship Specialty Start Date End Date No, Physician PCP - General 03/09/23 Margareth Herrera DO [address] [place], [place] [address] Consulting Physician Obstetrics and Gynecology 09/05/23 documented as of this encounter
--- OUTSIDE RECORDS SUMMARY | 2024-10-15 16:13 | XMS_ITS | Encounter Summary ---
Author Organization [facility] Address [address] [place] [address] Care Team Providers Care Linseed Oil Boiler Name Role Phone Unavailable Primary Care Provider Unavailabl e Reason for Visit * Reason Onset Date Comments Missed Appointment 12/04/2020 missed 11/30/20 appt Encounter Details Date Type Department Care Team (Late st Contact Info) Description 12/04/2020 Telephone [facility] Maternal & Care [address] [place] [address] Igor Siegel Missed Appointment (missed 11/30/20 appt) [...] reschedule missed appt on 11/30/20 left VM NTORY CONTROL/SHIPPING RECEIVING documented in this encounter Plan of Treatment Not on file documented as of this encounter Visit Diagnoses Not on filedocumented in this encounter
--- OUTSIDE RECORDS SUMMARY | 2024-10-15 16:13 | XMS_ITS | Encounter Summary ---
Author Organization [facility] Healthcare Address [address] [place] [address] Care Team Providers Care Gem Setter Name Role Phone No, Physician Primary Care Provider [phone] Margareth Herrera DO Unavailable [phone] Reason for Visit * Auth/Cert (Routine) Specialty Diagnoses / Procedures Referred By Lenora t Referred To Contact Diagnoses Request for sterilization Request for sterilization [Z30.2] Procedures PA LIG/TRNSXJ FLP TUBE ABDL/VAG SPX SALPINGECTOMY Referral ID Status Reason Start Date Expiration Date Visits Re quested Visits Authorized [id number] 1 1 Encounter Details Date Type Department Care Team (Late st Contact Info) Description 09/05/2023 6:01 AM GENETICS PHYSICIAN - 09/05/2023 10:43 AM GENETICS PHYSICIAN Hospital Encounter [facility] Operating Room [address] [place] [address] Margareth Herrera DO [address] [place] [address] Request for sterilization Discharge Disposition: Discharge to [...] often do you attend chur ch or zoroastrian services? More than 4 times per year [...] staff should administer the PHQ-9) 0 09/01/2023 [facility] - Occupational Stress Questionnaire Answer Date [...] slept in a assisted (including now)? No 09/01/2023 Personal Safety Answer [...] Comments Blood Pressure 118/73 09/05/2023 10:07 AM GENETICS PHYSICIAN Pulse 62 09/05/2023 10:07 AM GENETICS PHYSICIAN Temperature 36.2 ??C (97.1 ??F) 09/05/2023 10:[address] Respiratory Rate 18 09/05/2023 10:07 AM GENETICS PHYSICIAN Oxygen Saturation 99% 09/05/2023 10:07 AM GENETICS PHYSICIAN Inhaled Oxygen Concentration - - Weight 75.8 kg (167 lb 1.7 oz) 09/05/2023 6:20 A M GENETICS PHYSICIAN Height 165.1 cm (5' 5 ) 09/05/2023 6:20 AM GENETICS PHYSICIAN Body Mass Index 27.81 09/05/2023 6:20 AM GENETICS PHYSICIAN documented in this encounter Discharge Instructions * Attachments The following attachments cannot be sent through Care Everywhere. * General Anesthesia (Discharge Care) (Thai) documented in this encounter Medications at Time [...] She was originally scheduled for induction at [facility] yesterday with a plan for PP BS today but ended up delivering [facility] Monday night. Delivery was uncomplicated. [...] and even . Margareth Herrera DO 09/05/23 TICS PHYSICIAN documented in this encounter Miscellaneous Notes * Perioperative Nursing Note - Sherita Conley RN - 09/05/2023 10:08 AM GENETICS PHYSICIAN Pt ambulatory with no difficulty to the restroom, was able to void prior to discharge, small amountof drainage seen on elena pad. TICS PHYSICIAN * Perioperative Nursing Note - Sherita Conley RN - 09/05/2023 9:38 AM GENETICS PHYSICIAN Pt having pain of 05/08, Dr. Herrera made aware, order for percocet placed. TICS PHYSICIAN * Op Note - Margareth Herrera DO [...] She was originally scheduled for induction at [facility] yesterday with a plan for PP BS today but ended up delivering at [facility] Monday night. Delivery was uncomplicated. She SROM'd [...] DO, was present for the entire procedure. TICS PHYSICIAN * Pre-Procedure Instructions - Ashli De Dios RN - 09/04/2023 2:19 PM GENETICS PHYSICIAN We are pleased that you and your doctor have chosen [facility] for your surgery. We hope that the [...] morning of surgery Use no make-up, nail italian, lotions, oils or powders on your skin. [...] posted at the top of the page. TICS PHYSICIAN documented in this encounter Plan of Treatment Not on file documented as of this encounter Procedures Procedure Name Priority Date/Time Associated Diagnosis Comments SURGICAL PATHOLOGY Routine 09/05/2023 9: 49 AM GENETICS PHYSICIAN Request for sterilization SALPINGECTOMY 09/05/2023 7:46 AM GENETICS PHYSICIAN Request for sterilization DIFFERENTIAL AUTO STAT 09/05/2023 6:3 9 AM GENETICS PHYSICIAN CBC WITH AUTO DIFFERENTIAL STAT 09/05/2023 6:39 AM GENETICS PHYSICIAN documented in this encounter Results * Surgical pathology (09/05/2023 9:49 AM GENETICS PHYSICIAN) Tissue (Fallopian tube, sterilization) 09/05/2023 8:03 AM GENETICS PHYSICIAN Narrative [facility]OLOGY [facility] ([facility]) - 09/06/2023 10:35 AM GENETICS PHYSICIAN EPIC results best viewed via link to PDF [facility] Department of Pathology [address] [place], [place] [id number] Note to Patients: This report may contain [...] Final Report Patient Name: ??HANNAH PYLE Address: ??[facility] [address], ??[place], [place] ?? Gender: ??F : ??1995 (Age: 28) Service: ??Surgery Location: ??[facility] Hospital #: ??[id number] Patient Type: ??[facility] Accession # ?[id number] Taken: ??09/05/2023 Received: ??09/05/2023 Accessioned: ??09/05/2023 Reported: [...] determined by the Surgical Pathology Department at [facility] as part of an ongoing rn clinical quality program and in compliance with federally mandated [...] characteristics determined by the Surgical Pathology Department [facility]. ??It has not been cleared or approved by the U. S. Food and Drug Administration. Note for decalcified specimens: This assay has not been validated on decalcified tissues. Results should be interpreted with caution given the possibility of false negativity on decalcified specimens Margareth Herrera DO LAB PATHOLOGY ORDERABLE S Final Result PATHOLOGY [facility] ([facility]) 1 [place] [address] * Differential, auto (09/05/2023 6:39 AM GENETICS PHYSICIAN) Neutrophil abs 4.4 1.7 - 6.5 K/cumm [...] revised on 2018. Blood 09/05/2023 6:39 AM GENETICS PHYSICIAN 09/05/2023 6:43 AM GENETICS PHYSICIAN us Margareth Herrera DO LAB BLOOD ORDERABLES Fi nal Result [facility] ([facility]) 1 [facility] Department [place] [address] * (ABNORMAL) CBC with auto differential (09/05/2023 6:39 AM GENETICS PHYSICIAN) WBC 7.6 3.8 - 9.9 K/cumm C[facility] [...] [facility] ([facility]) Blood 09/05/2023 6:39 AM GENETICS PHYSICIAN 09/05/2023 6:43 AM GENETICS PHYSICIAN us Margareth Herrera DO LAB BLOOD ORDERABLES Fi nal Result [facility] ([facility]) 1 [facility] Department [place] [address] documented in this encounter Visit Diagnoses Diagnosis [...] more., Indications: PainIndications:Pain Given 09/05/2023 9:21 AM GENETICS PHYSICIAN 50 mcg Given 09/05/2023 9:09 AM GENETICS PHYSICIAN 50 mcg Lactated Ringer's (LR) infusion 30 mL/hr, intravenous, Continuous, Starting on Mon09/05/23 at 0645, Pre-Op New Bag 09/05/2023 7:46 AM GENETICS PHYSICIAN oxyCODONE-acetaminophen (PERCOCET) 5-325 mg per tablet 1 tablet 1 tablet, oral, Once, On Mon09/05/23 at 1015, For 1 dose, Indications: PainIndications:Pain Given 09/05/2023 9:52 AM GENETICS PHYSICIAN 1 tablet documented in this encounter Discontinued [...] may contain times in both CDT and GENETICS PHYSICIAN. Scheduled Medication Order 09/03/2023 09/04/2023 09/05/2023 ceFAZolin [...] Indications: Pain 0952 (Given - Provid er: Sehrita Conley RN) Continuous Medication Order 09/03/2023 09/04/2023 [...] 0838 (Given - Provid er: Hannah Savage, ADDICTION NURSE) fentaNYL (SUBLIMAZE) preservative free injection 50 mcg (CANCELED) 50 mcg, intravenous, Every 10 min PRN, 1st line for pain, Starting on Mon09/05/23 at 0906, Phase I, Notify Anesthesiologist if total PACU dose reaches 100 mcg and pain score 5/10 or more., Indications: Pain 0909 (Given - Provid er: Cinyd Bryson RN)0921 (Given - Provider: Cindy Bryson [...] 09/05/2023 documented in this encounter Care Teams Gem Setter Relationship Specialty Start Date End Date No, Physician PCP - General 03/09/23 Margareth Herrera DO [address] [place] [address] Consulting Physician Obstetrics and Gynecology 09/05/23 documented as of this encounter
--- OUTSIDE RECORDS SUMMARY | 2024-10-15 16:13 | XMS_ITS | Encounter Summary ---
Author Organization [facility] Healthcare Address [address] [place] [address] Care Team Providers Care Event Designer Name Role Phone No, Physician Primary Care Provider [phone] Margareth Herrera DO Unavailable [phone] Reason for Visit * Auth/Cert (Routine) Specialty Diagnoses / Procedures Referred By Lenora t Referred To Contact Diagnoses Request for sterilization Request for sterilization [Z30.2] Procedures WI LIG/TRNSXJ FLP TUBE ABDL/VAG SPX SALPINGECTOMY Referral ID Status Reason Start Date Expiration Date Visits Re quested Visits Authorized [id number] 1 1 Encounter Details Date Type Department Care Team (Late st Contact Info) Description 09/05/2023 7:30 AM DYE WEIGHER - 09/05/2023 8:45 AM DYE WEIGHER Surgery [facility] Operating Room [address] [place] [address] Margareth Herrera DO [address] [address] SALPINGECTOMY Surgery Details Date/Time Status Location OR [...] How often do you attend chur or caodaism services? More than 4 times per year [...] staff should administer the PHQ-9) 0 [facility] - Occupational Stress Questionnaire Answer [...] in a mcfp (including now)? No 09/01/2023 Personal Safety Answer [...] Comments Blood Pressure 136/70 09/05/2023 6:20 AM DYE WEIGHER Pulse 66 09/05/2023 6:20 AM DYE WEIGHER Temperature 36.2 ??C (97.1 ??F) 09/05/2023 6:20 AM CS T Respiratory Rate 18 09/05/2023 6:20 AM DYE WEIGHER Oxygen Saturation 98% 09/05/2023 6:20 AM DYE WEIGHER Inhaled Oxygen Concentration - - Weight 75.8 kg (167 lb 1.7 oz) 09/05/2023 6:20 A M DYE WEIGHER Height 165.1 cm (5' 5 ) 09/05/2023 6:20 AM DYE WEIGHER Body Mass Index 27.81 09/05/2023 6:20 AM DYE WEIGHER documented in this encounter Discharge Instructions * Attachments The following attachments cannot be sent through Care Everywhere. * General Anesthesia (Discharge Care) (Indonesian) documented in this encounter Medications at Time [...] She was originally scheduled for induction at [facility] yesterday with a plan for PP BS today but ended up delivering [facility] Monday night. Delivery was uncomplicated. She [...] and even . Margareth Herrera DO 09/05/23 WEIGHER documented in this encounter Miscellaneous Notes * Perioperative Nursing Note - Sherita Conley RN - 09/05/2023 10:08 AM DYE WEIGHER Pt ambulatory with no difficulty to the restroom, was able to void prior to discharge, small amountof drainage seen on elena pad. WEIGHER * Perioperative Nursing Note - Sherita Conley RN - 09/05/2023 9:38 AM DYE WEIGHER Pt having pain of 05/08, Dr. Herrera made aware, order for percocet placed. WEIGHER * Op Note - Margareth Herrera DO [...] She was originally scheduled for induction at [facility] yesterday with a plan for PP BS today but ended up delivering at [facility] Monday night. Delivery was uncomplicated. She [...] DO, was present for the entire procedure. WEIGHER * Pre-Procedure Instructions - Ashli De Dios RN - 09/04/2023 2:19 PM DYE WEIGHER We are pleased that you and your doctor have chosen [facility] for your surgery. We hope that [...] morning of surgery Use no make-up, nail irish, lotions, oils or powders on your skin. [...] posted at the top of the page. WEIGHER documented in this encounter Plan of Treatment Not on file documented as of this encounter Procedures Procedure Name Priority Date/Time Associated Diagnosis Comments SURGICAL PATHOLOGY Routine 09/05/2023 9: 49 AM DYE WEIGHER Request for sterilization SALPINGECTOMY 09/05/2023 7:46 AM DYE WEIGHER Request for sterilization DIFFERENTIAL AUTO STAT 09/05/2023 6:3 9 AM DYE WEIGHER CBC WITH AUTO DIFFERENTIAL STAT 09/05/2023 6:39 AM DYE WEIGHER documented in this encounter Results * Surgical pathology (09/05/2023 9:49 AM DYE WEIGHER) Tissue (Fallopian tube, sterilization) 09/05/2023 8:03 AM DYE WEIGHER Narrative [facility]OLOGY [facility] ([facility]) - 09/06/2023 10:35 AM DYE WEIGHER EPIC results best viewed via link to PDF [facility] Department of Pathology [address] [place] [address] Note to Patients: This report may contain [...] Final Report Patient Name: ??HANNAH PYLE Address: ??[facility] [address], ??[place], [place] ?? Gender: ??F : ??1995 (Age: 28) Service: ??Surgery Location: [facility] Hospital #: ??[id number] Patient Type: ??[facility] IP Accession # ?[id number] Taken: ??09/05/2023 Received: ??09/05/2023 Accessioned: ??09/05/2023 Reported: [...] by the Surgical Pathology Department at [facility] as part of an ongoing quality [...] characteristics determined by the Surgical Pathology Department [facility]. ??It has not been cleared or approved by the U. S. Food and Drug Administration. Note for decalcified specimens: This assay has not been validated on decalcified tissues. Results should be interpreted with caution given the possibility of false negativity on decalcified specimens Margareth Herrera DO LAB PATHOLOGY ORDERABLE S Final Result PATHOLOGY [facility] ([facility]) 1 [place], [place] [id number] * Differential, auto (09/05/2023 6:39 AM DYE WEIGHER) Neutrophil abs 4.4 1.7 - 6.5 K/cumm [facility] ([facility]) Imm gran abs 0.0 0.0 - 0.1 [...] revised on 2018. Blood 09/05/2023 6:39 AM DYE WEIGHER 09/05/2023 6:43 AM DYE WEIGHER Margareth Herrera DO LAB BLOOD ORDERABLES Fi nal Result [facility] ([facility]) 1 [facility] [place] [address] * (ABNORMAL) CBC with auto differential (09/05/2023 6:39 AM DYE WEIGHER) WBC 7.6 3.8 - 9.9 K/cumm C[facility]ER [...] [facility] ([facility]) Blood 09/05/2023 6:39 AM DYE WEIGHER 09/05/2023 6:43 AM DYE WEIGHER Margareth Herrera DO LAB BLOOD ORDERABLES Fi nal Result [facility]) 1 [facility] [place] [address] documented in this encounter Visit Diagnoses Diagnosis [...] at 0829, Intra-Op Given 09/05/2023 8:38 AM DYE WEIGHER 10 mL Surgical Site fentaNYL (SUBLIMAZE) preservative free injection 50 mcg 50 mcg, intravenous, Every 10 min PRN, 1st line for pain, Starting on Mon09/05/23 at 0906, Phase I, Notify Anesthesiologist if total PACU dose reaches 100 mcg and pain score 5/10 or more., Indications: PainIndications:Pain Given 09/05/2023 9:21 AM DYE WEIGHER 50 mcg Given 09/05/2023 9:09 AM DYE WEIGHER 50 mcg Lactated Ringer's (LR) infusion 30 mL/hr, intravenous, Continuous, Starting on Mon09/05/23 at 0645, Pre-Op New Bag 09/05/2023 7:46 AM DYE WEIGHER oxyCODONE-acetaminophen (PERCOCET) 5-325 mg per tablet 1 tablet 1 tablet, oral, Once, On Mon09/05/23 at 1015, For 1 dose, Indications: PainIndications:Pain Given 09/05/2023 9:52 AM DYE WEIGHER 1 tablet sodium chloride 0.9% irrigation As needed, Starting on Mon09/05/23 at 0820, Intra-Op Given 09/05/2023 8:20 AM DYE WEIGHER 1,000 mL Surgical Site documented in this [...] may contain times in both CDT and DYE WEIGHER. Scheduled Medication Order 09/03/2023 09/04/2023 09/05/2023 [email or web address] [...] 09/05/2023 documented in this encounter Care Teams Event Designer Relationship Specialty Start Date End Date No, Physician PCP - General 03/09/23 Margareth Herrera DO [address] [place] [address] Consulting Physician Obstetrics and Gynecology 09/05/23 documented as of this encounter
--- OUTSIDE RECORDS SUMMARY | 2024-10-15 16:13 | XMS_ITS | Encounter Summary ---
Author Organization [facility] Healthcare Address [address] [place] [address] Care Team Providers Care Senior Php Software Developer Name Role Phone No, Physician Primary Care Provider Reason for Visit * Reason Comments Problem Saw Dr. Herrera today, SVE 5cm. Contracted all weekend. Encounter Details Date Type Department Care Team (Late st Contact Info) Description 08/22/2023 12:19 PM CDT - 08/22/2023 2:35 PM CDT Hospital Encounter [facility] Child[facility] [address] [place] [address] Margareth Herrera, DO [address] [place] [address] Discharge Disposition: Discharge to home or self [...] often do you attend chur ch or nondenominational services? More than 4 times per year 08/22/2023 Do you belong to any clubs o r organizations such as alevism groups, unions, fraternal or athletic groups, or [...] staff should administer the PHQ-9) 0 08/22/2023 [facility] of Occupat ional [facility] - Occupational Stress Questionnaire Answer Date Recorded [...] slept in a prison (including now)? No 08/22/2023 Comments Yes Sex [...] Everywhere. * Early Labor Signs (AfterCare(R) Instructions(ER/ED)) (Slovenian) * at 35 to 38 Weeks (Discharge Care) (Slovenian) documented in this encounter Discharge Disposition Disposition [...] by mouth daily Therapy completed 05/15/2023 08/22/2023 [id number] (Kosher Plus Iron) 30 mg iron- 1 mg tablet Take 1 tablet by mouth daily Therapy completed 03/06/2021 08/22/2023 documented as of this encounter Orders Discharge Count Last Ordered Date First Orde red Date DISCHARGE PATIENT 1 08/22/2023 documented in this encounter Care Teams Senior Php Software Developer Relationship Specialty Start Date End Date No, Physician PCP - General 03/09/23 documented as of this encounter
--- OUTSIDE RECORDS SUMMARY | 2024-10-15 16:13 | XMS_ITS | Encounter Summary ---
Author Organization [facility] Address [address] [place] [address] Care Team Providers Care Guest Experience Captain Name Role Phone Unavailable Primary Care Provider Unavailabl e Reason for Visit * Reason Comments Ultrasound * Evaluate & Treat (Routine) - Closed Specialty Diagnoses / Procedures Referred By Contac t Referred To Contact Diagnoses Abnormal ultrasonic finding on screening of mother Encounter for screening, unspecified (HCC) Supervision of other high risk pregnancies, unspecified trimester ([facility]) Procedures [place] ULTRASOUND, UTERUS Elisa Krueger MD [address] [address] [facility] Maternal Fet Shil [address] [place] [address] Referral ID Status Reason Start Date Expiration Date Visits Re quested Visits Authorized [id number] Closed 10/07/2020 12/07/2020 1 1 Encounter Details Date Type Department Care Team (Latest Contact Info) Description 10/07/2020 12:31 PM FISH PROCESSING SUPERVISOR - 10/07/2020 11:59 PM FISH PROCESSING SUPERVISOR Hospital Encounter [facility] Women's Health Maternal & Care [address] [place] [address] Tima Bejarano MD Discharge Disposition: [...] tech were wearing masks TEMPS Pt:97.9 Guest: PROCESSING SUPERVISOR documented in this encounter Plan of Treatment Not on file documented as of this encounter Procedures Procedure Name Priority Date/Time Associated Diagnosis Comments SONOGRAM - COMPLETE Routine 10/07/2020 1 2:56 PM FISH PROCESSING SUPERVISOR Date of last menstrual period (LMP) unknown documented in this encounter Results * SONOGRAM - COMPLETE (10/07/2020 12:56 PM FISH PROCESSING SUPERVISOR) Anatomical Region Laterality Modality Other 10/07/2020 12:5 6 PM FISH PROCESSING SUPERVISOR Narrative 10/07/2020 11:10 PM FISH PROCESSING SUPERVISOR ? - [facility] ? [facility] ?PHONE: ??FAX: ? Pat. Name: ?HANNAH PYLE. No: ?[id number] Study Date: ?? 10/07/2020 ??12:56pm , Age: ? 1995, 25 Pregnancies: ?? 5, Para 3, Ab 1 Height: ? 65 in Weight: ? 166 lb LMP: ?Unknown GA by US: ? 13w3d ?? SRINIVASA: 04/11/2021 GA Selected: ??12w6d (From Known E) SRINIVASA: ?04/15/2021 Referring MD: Junie Brizuela MD Poker Supervisor: ??Bela Villafuerte RDMS CPT4: ? 31165 BMI: ?27.62 Hist/Ind: ? Dating ?Unknown LMP ?Hx MEASUREMENTS & AGE ? GROWTH EVALUATION Measurement ??GA ? Range ? Srce %for GA Ratios ----- ---- ------- CRL ??7.4 cm 13w3d (56w4d-51b8l) Hadl CRL 76% GA for sonogram 13w3d (19w3m-10f1n) based on (CRL) Avg ? Heart Rate: [...] ??10/07/2020 11:11pm Tima Bejarano MD [facility] ORDERABLES documented in this encounter Visit Diagnoses Diagnosis Date of last menstrual period (LMP) unknown- Primary Encounter for screening for uncertain dates (HCC) 12 weeks gestation of (HCC) state, incidental documented in this encounter
--- OUTSIDE RECORDS SUMMARY | 2024-10-15 16:14 | XMS_ITS | Encounter Summary ---
Author Organization [facility] Address [address] [facility] [address] [place] [address] Care Team Providers Care Buttoner Name Role Phone No, Physician Primary Care Provider Reason for Visit * Diagnostic Imaging (Routine) - Closed Specialty Diagnoses / Procedures Referred By Lenora pacheco Referred To Contact Diagnoses Encounter for maternal care for excessive growth in second trimester, single or unspecified fetus 20 weeks gestation of Procedures US Ob 14 Weeks Or Over Margareth Herrera, DO [address] [place] [address] Phone: tel: fax: [facility] Referral ID Status Reason Start Date Expiration Date Visits Re quested Visits Authorized [id number] Closed 04/14/2023 05/13/2024 1 1 Encounter Details Date Type Department Care Team (Latest Contact Info) Description 04/27/2023 2:40 PM CDT Ancillary Procedure [facility] [address] [place] [id number] Encounter for maternal care for excessive growth [...] in a group home (including now)? No 04/14/2023 Comments Yes [...] of documented in this encounter Care Teams Buttoner Relationship Specialty Start Date End Date No, Physician PCP - General 03/09/23 documented as of this encounter
--- OUTSIDE RECORDS SUMMARY | 2024-10-15 16:14 | XMS_ITS | Encounter Summary ---
Author Organization [facility] Address [address] [address] Care Team Providers Care Can Cutter Name Role Phone No, Physician Primary Care Provider Reason for Referral * Diagnostic Imaging (Routine) - Closed Specialty Diagnoses / Procedures Referred By Lenora t Referred To Contact Diagnoses Encounter for maternal care for excessive growth in second trimester, single or unspecified fetus 20 weeks gestation of Procedures US Ob 14 Weeks Or Over Margareth Herrera DO [address] [place] [address] Phone: tel: fax: [facility] Referral ID Status Reason Start Date Expiration Date Visits Re quested Visits Authorized [id number] Closed 04/14/2023 05/13/2024 1 1 Encounter Details Date Type Department Care Team (Late st Contact Info) Description 04/14/2023 2:30 PM CDT Office Visit [facility] [address] [place] [phone] Margareth Herrera DO [address] [place] [address] care, subsequent , second trimester (Primary Dx); [...] slept in a correction (including now)? No 04/14/2023 Comments Yes Sex [...] of documented in this encounter Care Teams Can Cutter Relationship Specialty Start Date End Date No, Physician PCP - General 03/09/23 documented as of this encounter
--- OUTSIDE RECORDS SUMMARY | 2024-10-15 16:14 | XMS_ITS | Encounter Summary ---
Author Organization [facility] Medical Group Address [address] [facility] [address] [place] [address] Care Team Providers Care Rn Intake Name Role Phone No, Physician Primary Care Provider [phone] Reason for Visit * Reason Comments Routine Visit Encounter Details Date Type Department Care Team (Late st Contact Info) Description 06/16/2023 10:50 AM CDT Office Visit [facility] [address] [place] [address] Margareth Herrera, DO [address] [address] care, subsequent , second trimester (Primary Dx); [...] place to sleep or slept in a chcf (including now)? No 04/14/2023 Comments Yes Sex [...] Vaginitis panel Vaginal (06/16/2023 4:30 PM CDT) [facility] Marley DNA probe Detected(A) Not Detected OSCAR ARMENDARIZ Comment:Testing performed by : [facility], [address] [place] [address]., [address] Gardnerella DNA probe Detected(A) Not Detected OSCAR ARMENDARIZ Comment:Testing performed by : [facility], [address] [place] [address]., [address] Trichomonas DNA probe Not Detected Not Detected OSCAR ARMENDARIZ Comment: Interpretive Data Testing performed by [facility] via Affirm VPIII Microbial Identification Test, a [...] last revised on 2020. Testing performed by: [facility], [address] [place] [address]., [id number] Vaginal 06/16/2023 4:30 PM CDT 06/17/2023 2:00 PM CDT Margareth Herrera DO LAB MICROBIOLOGY - GENE [facility] ORDERABLES Final Result OSCAR [address] [address] Department [place] [address] * (ABNORMAL) POCT urine glucose and protein (06/16/2023 10:13 AM CDT) [facility] Glucose, ur, POC Negative Negative MG/DL Protein, ur, POC 1+(A) Negative Lot Number [id number] Urine 06/16/2023 10:1 3 AM CDT Margareth Herrera DO POINT OF CARE TEST YIMI MACIAS Final Result documented in this encounter Visit Diagnoses Diagnosis care, subsequent , second trimester- Primary Acute vaginitis Unspecified vaginitis and vulvovaginitis documented in this encounter Care Teams Rn Intake Relationship Specialty Start Date End Date No, Physician PCP - General 03/09/23 documented as of this encounter
--- OUTSIDE RECORDS SUMMARY | 2024-10-15 16:14 | XMS_ITS | Encounter Summary ---
Author Organization [facility] Healthcare Address [address] [place] [address] Care Team Providers Care Director Radio News Name Role Phone No, Physician Primary Care Provider [phone] Reason for Referral * Diagnostic Imaging (Routine) - Closed Specialty Diagnoses / Procedures Referred By Contjasmyn t Referred To Contact Diagnoses Malposition of fetus, single or unspecified fetus Procedures US Ob Limited Mragareth Herrera DO [address] [place] [address] Phone: tel: fax: [facility] Referral ID Status Reason Start Date Expiration Date Visits Re quested Visits Authorized [id number] Closed 08/02/2023 08/31/2024 1 1 Encounter Details Date Type Department Care Team (Late st Contact Info) Description 08/02/2023 Orders Only [facility] [address] [place] [id number] Margareth Herrera DO [address] [place] [address] Malposition of fetus, single or unspecified fetus [...] slept in a alf (including now)? No 04/14/2023 Comments Yes Sex [...] fetus documented in this encounter Care Teams Director Radio News Relationship Specialty Start Date End Date No, Physician PCP - General 03/09/23 documented as of this encounter
--- OUTSIDE RECORDS SUMMARY | 2024-10-15 16:14 | XMS_ITS | Encounter Summary ---
Author Organization [facility] Medical Group Address [address] [facility] [address] [place] [address] Care Team Providers Care Fitness Management Director Name Role Phone No, Physician Primary Care Provider [phone] Encounter Details Date Type Department Care Team (Late st Contact Info) Description 06/22/2023 Telephone [facility] [address] [place] [address] Elena Veliz LPN Social History [...] in a long term (including now)? No 04/14/2023 Comments Yes Sex [...] on filedocumented in this encounter Care Teams Fitness Management Director Relationship Specialty Start Date End Date No, Physician PCP - General 03/09/23 documented as of this encounter
--- OUTSIDE RECORDS SUMMARY | 2024-10-15 16:14 | XMS_ITS | Encounter Summary ---
Author Organization [facility] Medical Group Address [address] [facility] [address] [place] [address] Care Team Providers Care Blacksmith Hammer Operator Name Role Phone No, Physician Primary Care Provider [phone] Reason for Visit * Reason Comments Routine Visit Encounter Details Date Type Department Care Team (Late st Contact Info) Description 06/30/2023 11:30 AM CDT Office Visit [facility] [address] [place] [address] Margareth Herrera, DO [address] [place] [address] Encounter for supervision of other normal in [...] Protein, ur, POC Negative Negative Lot Number [id number] Urine 06/30/2023 11:3 7 AM CDT Margareth Herrera DO POINT OF CARE TEST SANDRAHortencia CLEARYCAL Final Result documented in this encounter Visit Diagnoses Diagnosis Encounter for supervision of other normal in third trimester- Primary documented in this encounter Care Teams Blacksmith Hammer Operator Relationship Specialty Start Date End Date No, Physician PCP - General 03/09/23 documented as of this encounter
--- OUTSIDE RECORDS SUMMARY | 2024-10-15 16:14 | XMS_ITS | Encounter Summary ---
Author Organization [facility] Medical Group Address [address] [facility] [address] [place] [address] Care Team Providers Care Sole Trimmer Name Role Phone No, Physician Primary Care Provider [phone] Encounter Details Date Type Department Care Team (Late st Contact Info) Description 04/10/2023 Documentation [facility] [address] [place] [address] Margareth Herrera DO [address] [place] [address] Social History Tobacco Use Types Packs/Day Years [...] on filedocumented in this encounter Care Teams Sole Trimmer Relationship Specialty Start Date End Date No, Physician PCP - General 03/09/23 documented as of this encounter
--- OUTSIDE RECORDS SUMMARY | 2024-10-15 16:14 | XMS_ITS | Encounter Summary ---
Author Organization [facility] Medical Group Address [address] [facility] [address] [place] [address] Care Team Providers Care Reel Hooker Name Role Phone No, Physician Primary Care Provider [phone] Encounter Details Date Type Department Care Team (Late st Contact Info) Description 06/22/2023 Telephone [facility] [address] [place] [address] Elena Veliz LPN Social History [...] PM CDT Patient notified. Will go to [facility] [place] tomorrow for 3 hr GTT * Telephone [...] Glucose, fasting 75 65 - 94 mg/dL [facility] Glucose, 1 hour 165 <180 mg/dL [facility] Glucose, 100g, 2 hr, pl 127 <155 mg/dL [facility] Glucose, 100g, 3 hr, pl 74 <140 mg/dL [facility] Comment [facility] Comment: ?? Galaviz/Coustan Criteria: Two or more values greater than the above reference intervals are suggestive of gestational diabetes. ?? Serum 07/05/2023 9:21 AM CDT 07/05/2023 9:22 AM CDT Narrative [facility] - 07/06/2023 2:32 AM CDT FASTING:YES FASTING: YES Margareth Herrera DO LAB BLOOD ORDERABLES Fi nal Result [facility] [address] [place] [address] documented in this encounter Visit Diagnoses Diagnosis Elevated glucose tolerance test- Primary Impaired glucose tolerance test documented in this encounter Care Teams Reel Hooker Relationship Specialty Start Date End Date No, Physician PCP - General 03/09/23 documented as of this encounter
--- OUTSIDE RECORDS SUMMARY | 2024-10-15 16:14 | XMS_ITS | Encounter Summary ---
Author Organization [facility] Medical Group Address [address] [facility] [address] [place] [address] Care Team Providers Care Evp Business Development Name Role Phone No, Physician Primary Care Provider [phone] Encounter Details Date Type Department Care Team (Late st Contact Info) Description 03/30/2023 Telephone [facility] [address] [place] [address] Elena Veliz LPN Social History [...] filedocumented in this encounter Care Teams Evp Business Development Relationship Specialty Start Date End Date No, Physician PCP - General 03/09/23 documented as of this encounter
--- OUTSIDE RECORDS SUMMARY | 2024-10-15 16:14 | XMS_ITS | Encounter Summary ---
Author Organization [facility] Healthcare Address [address] [place] [address] Care Team Providers Care Research Rn Spec Name Role Phone No, Physician Primary Care Provider [phone] Encounter Details Date Type Department Care Team (Late st Contact Info) Description 06/22/2023 Orders Only [address] [address] Margareth Herrera, DO [address] [place] [address] Social History Tobacco Use Types Packs/Day Years [...] on filedocumented in this encounter Care Teams Research Rn Spec Relationship Specialty Start Date End Date No, Physician PCP - General 03/09/23 documented as of this encounter
--- OUTSIDE RECORDS SUMMARY | 2024-10-15 16:14 | XMS_ITS | Encounter Summary ---
Author Organization [facility] Medical Group Address [address] [facility] [address] [place] [address] Care Team Providers Care Electronic Equipment Maint Tech Name Role Phone No, Physician Primary Care Provider [phone] Encounter Details Date Type Department Care Team (Late st Contact Info) Description 05/03/2023 Telephone [facility] [address] [place] [address] Denise Venegas Social History Tobacco [...] on filedocumented in this encounter Care Teams Electronic Equipment Maint Tech Relationship Specialty Start Date End Date No, Physician PCP - General 03/09/23 documented as of this encounter
--- OUTSIDE RECORDS SUMMARY | 2024-10-15 16:14 | XMS_ITS | Encounter Summary ---
Author Organization [facility] Healthcare Address [address] [place] [address] Care Team Providers Care Mitering Machine Operator Name Role Phone No, Physician Primary Care Provider Encounter Details Date Type Department Care Team (Late st Contact Info) Description 08/09/2023 Telephone [facility] [address] [place] [address] Margareth Herrera, DO [address] [place] [address] Social History Tobacco Use Types Packs/Day [...] in her moms garage and went to [facility] and got checked out. Pt states feels fine and next appt is 08/17 does she need tocome in sooner or is 08/17 ok. CBN#[phone] documented in this encounter Plan of Treatment Not on file documented as of this encounter Visit Diagnoses Not on filedocumented in this encounter Care Teams Mitering Machine Operator Relationship Specialty Start Date End Date No, Physician PCP - General 03/09/23 documented as of this encounter
--- OUTSIDE RECORDS SUMMARY | 2024-10-15 16:14 | XMS_ITS | Encounter Summary ---
Author Organization [facility] Medical Group Address [address] [facility] [address] [place] [address] Care Team Providers Care Global Climate Change Analyst Name Role Phone No, Physician Primary Care Provider [phone] Encounter Details Date Type Department Care Team (Late st Contact Info) Description 07/06/2023 Telephone [facility] [address] [place] [address] Elena Veliz LPN Social History [...] on filedocumented in this encounter Care Teams Global Climate Change Analyst Relationship Specialty Start Date End Date No, Physician PCP - General 03/09/23 documented as of this encounter
--- OUTSIDE RECORDS SUMMARY | 2024-10-15 16:14 | XMS_ITS | Encounter Summary ---
Author Organization [facility] Healthcare Address [address] [place] [address] Care Team Providers Care Business Objects Name Role Phone No, Physician Primary Care Provider [phone] Encounter Details Date Type Department Care Team (Latest Contact Info) Description 06/16/2023 10:13 AM CDT - 06/16/2023 11:59 PM CDT Hospital Encounter [facility] [address] [place] [address] Encounter for supervision of other normal in [...] place to sleep or slept in a long-term (including now)? No 04/14/2023 Comments Yes Sex [...] mouth daily 30 packet 2 05/15/2023 08/22/2023 [id number] olic (Kosher Plus Iron) 30 mg iron- [...] Detected OSCAR ARMENDARIZ Comment:Testing performed by : [facility], [address] [place] [address]., [id number] Gardnerella DNA probe Detected(A) Not Detected OSCAR ARMENDARIZ Comment:Testing performed by : [facility], [address] [place] [address]., [address] Trichomonas DNA probe Not Detected Not Detected OSCAR ARMENDARIZ Comment: Interpretive Data Testing performed by [facility] via Affirm VPIII Microbial Identification Test, [...] last revised on 2020. Testing performed by: [facility], [address] [place] [address]., [address] Vaginal 06/16/2023 4:30 PM CDT 06/17/2023 2:00 PM CDT us Margareth Herrera DO LAB MICROBIOLOGY - GENE [facility] ORDERABLES Final Result OSCAR ARMENDARIZ [address] Department [place] [address] * Urine culture Urine, clean voided (06/16/2023 3:58 PM CDT) Report Final Report: Growth indicative of contamination with periurethral shekhar. Please submit a new specimen with special attention given to the collection process and to prompt transport to the laboratory. OSCAR Comment:Testing performed by : [facility], [address] [place]., [address] Organism GROWTH INDICATES CONTAM WITH PERIURETHRAL SHEKHAR. [facility] Urine, clean voided 06/16/2023 3:58 PM CDT 06/16/2023 10:43 PM CDT Narrative [facility] - 06/18/2023 11:15 AM CDT Testing performed by [facility] Microbiology Laboratory ([phone]) Hannah Pop MD LAB MICROBIOLOGY - [facility] ORDERABLES Final Result [facility] [address] Department [place] [address] * (ABNORMAL) Differential, auto (06/16/2023 10:41 AM CDT) Neutrophil abs 6.8(H) 1.7 - 6.5 K/cumm [facility] Imm gran abs 0.0 0.0 - 0.1 K/cumm [facility] Lymphocyte abs 1.6 0.8 - 3.3 K/cumm [facility] Monocyte abs 0.5 0.2 - 0.8 K/cumm [facility] Eosinophil abs 0.2 0.0 - 0.5 K/cumm [facility] Basophil abs 0.0 0.0 - 0.1 K/cumm [facility] Neutrophil pct 74.6 % [facility] Comment: Interpretive Data Percent cell count reference ranges are not reported, since discordance with absolute values may lead to misinterpretation of CBC data. Current Interpretive Data was last revised on 2018. Imm gran pct 0.4 % [facility] Comment: Interpretive Data Percent cell count reference ranges are not reported, since discordance with absolute values may lead to misinterpretation of CBC data. Current Interpretive Data was last revised on 2018. Lymphocyte pct 17.2 % [facility] Comment: Interpretive Data Percent cell count reference [...] BLOOD ORDERABLES Final Result Performing Organization Address City/[facility]/ZIP Co de Phone Number OSCAR [address] Department [place] [address] * HIV 1/2 Antibody plus [...] - GE NERAL ORDERABLES Final Result [facility] [address] [place] [address] * (ABNORMAL) CBC with auto differential (06/16/2023 10:41 AM CDT) WBC 9.2 3.8 - 9.9 K/cumm [facility] Hgb 11.4(L) 11.9 - 15.5 g/dL [facility] Hct 35.0(L) 35.6 - 45.5 % [facility] Plt 255 150 - 400 K/cumm [facility] MPV 9.9 9.1 - 12.3 fL [facility] RBC 3.77(L) 3.90 - 5.20 M/cumm [facility] MCV 92.8 81.3 - 96.4 fL [facility] MCH 30.2 27.1 - 33.3 pg [facility] MCHC 32.6 32.3 - 35.7 g/dL [facility] RDW CV 12.7 11.1 - 14.9 % [facility] RDW SD 43.6 35.7 - 48.1 fL [facility] NRBC abs 0.00 0.00 - 0.01 K/cumm [facility] Blood 06/16/2023 10:4 1 AM CDT 06/16/2023 6:47 PM CDT Hannah Pop MD LAB BLOOD ORDERABLES Final Result [facility] [address] Department [place] [address] * Glucose tolerance testing 50 gram gestational screen (06/16/2023 10:41 AM CDT) GTT 50g gest screen 137 <=140 mg/dL [facility] Comment: Interpretive Data Used for suspected gestational [...] MD LAB BLOOD ORDERABLES Final Result [facility] [address] Department of Laboratories [place], [place] [id number] documented in this encounter Visit Diagnoses Diagnosis Encounter for supervision of other normal in third trimester 27 weeks gestation of Acute vaginitis Unspecified vaginitis and vulvovaginitis documented in this encounter Care Teams Business Objects Relationship Specialty Start Date End Date No, Physician PCP - General 03/09/23 documented as of this encounter
--- OUTSIDE RECORDS SUMMARY | 2024-10-15 16:14 | XMS_ITS | Encounter Summary ---
Author Organization [facility] Medical Group Address [address] [address] Care Team Providers Care Labor Employment Associate Name Role Phone No, Physician Primary Care Provider [phone] Reason for Visit * Reason Comments Routine Visit Encounter Details Date Type Department Care Team (Late st Contact Info) Description 05/15/2023 2:40 PM CDT Office Visit [facility] [address] [place] [address] Margareth Rivera, DO [address] [place] [address] care, subsequent , second trimester (Primary Dx) [...] [place] [facility] (including now)? No 04/14/2023 Comments Yes Sex [...] Protein, ur, POC 1+(A) Negative Lot Number [id number] Urine 05/15/2023 2:48 PM CDT Margareth Rivera DO POINT OF CARE TEST ORDE RABCAL Final Result documented in this encounter Visit Diagnoses Diagnosis care, subsequent , second trimester- Primary documented in this encounter Care Teams Labor Employment Associate Relationship Specialty Start Date End Date No, Physician PCP - General 03/09/23 documented as of this encounter
--- OUTSIDE RECORDS SUMMARY | 2024-10-15 16:14 | XMS_ITS | Encounter Summary ---
Author Organization [facility] Healthcare Address [address] [place] [address] Care Team Providers Care Incinerator Plant Laborer Name Role Phone No, Physician Primary Care Provider [phone] Reason for Visit * Reason Comments Routine Visit Encounter Details Date Type Department Care Team (Late st Contact Info) Description 08/02/2023 10:20 AM CDT Office Visit [facility] [address] [place] [address] Margareth Herrera, DO [address] [place] [address] Encounter for supervision of other normal in [...] Protein, ur, POC Negative Negative Lot Number [id number] Urine 08/02/2023 10:3 0 AM CDT Margareth Herrera DO POINT OF CARE TEST YIMI MACIAS Final Result documented in this encounter Visit Diagnoses Diagnosis Encounter for supervision of other normal in third trimester- Primary documented in this encounter Care Teams Incinerator Plant Laborer Relationship Specialty Start Date End Date No, Physician PCP - General 03/09/23 documented as of this encounter
--- OUTSIDE RECORDS SUMMARY | 2024-10-15 16:14 | XMS_ITS | Encounter Summary ---
Author Organization [facility] Medical Group Address [address] [address] Care Team Providers Care Spinning Frame Fixer Name Role Phone No, Physician Primary Care Provider [phone] Encounter Details Date Type Department Care Team (Late st Contact Info) Description 06/16/2023 11:10 AM CDT Lab [facility] [address] [place] [address] care, subsequent , third trimester (Primary [...] of documented in this encounter Care Teams Spinning Frame Fixer Relationship Specialty Start Date End Date No, Physician PCP - General 03/09/23 documented as of this encounter
--- OUTSIDE RECORDS SUMMARY | 2024-10-15 16:14 | XMS_ITS | Encounter Summary ---
Author Organization [facility] Medical Group Address [address] [facility] [address] [place] [address] Care Team Providers Care Ophthalmic Medical Technician Name Role Phone No, Physician Primary Care Provider [phone] Encounter Details Date Type Department Care Team (Late st Contact Info) Description 07/14/2023 Telephone [facility] [address] [place] [address] Margareth Herrera, DO [address] [address] Social History Tobacco Use Types Packs/Day Years [...] let you know that she went to [facility] and was checked and that staff at [facility] stated she was thinning and dilated to a 1 and just wanted to let you know of this. documented in this encounter Plan of Treatment Not on file documented as of this encounter Visit Diagnoses Not on filedocumented in this encounter Care Teams Ophthalmic Medical Technician Relationship Specialty Start Date End Date No, Physician PCP - General 03/09/23 documented as of this encounter
--- OUTSIDE RECORDS SUMMARY | 2024-10-15 16:14 | XMS_ITS | Encounter Summary ---
Author Organization [facility] Address [address] [place] [address] Care Team Providers Care Bulb Packer Name Role Phone No, Physician Primary Care Provider [phone] Encounter Details Date Type Department Care Team (Late st Contact Info) Description 05/15/2023 Orders Only [facility] [address] [place] [address] Hannah Pop MD [address] [address] Encounter for supervision of other [...] laboratory. [facility] Comment:Testing performed by : [facility], [address] [place]., [address] Organism GROWTH INDICATES CONTAM WITH PERIURETHRAL SHEKHAR. [facility] ARMENDARIZ Urine, clean voided 06/16/2023 3:58 PM CDT 06/16/2023 10:43 PM CDT Narrative [facility] - 06/18/2023 11:15 AM CDT Testing performed by [facility] Microbiology Laboratory ([phone]) us Hannah Pop MD LAB MICROBIOLOGY - NERAL ORDERABLES Final Result [facility] ARMENDARIZ [address] [address] Department [place] [address] * HIV 1/2 Antibody plus [...] Final Result Performing Organization Address [facility] de Phone Number FERNANDOTYREL ARMENDARIZ [address] [address] [place] [address] * Glucose tolerance testing 50 gram gestational [...] Final Result Performing Organization Address [facility] de Phone Number FERNANDOTYREL ARMENDARIZ [address] [address] [place] [address] * (ABNORMAL) CBC with auto differential (06/16/2023 10:41 AM CDT) WBC 9.2 3.8 - 9.9 K/cumm [facility] Hgb 11.4(L) 11.9 - 15.5 g/dL [facility] Hct 35.0(L) 35.6 - 45.5 % [facility] Plt 255 150 - 400 K/cumm [facility] MPV 9.9 9.1 - 12.3 fL [facility] RBC 3.77(L) 3.90 - 5.20 M/cumm [facility] MCV 92.8 81.3 - 96.4 fL [facility] MCH 30.2 27.1 - 33.3 pg [facility] MCHC 32.6 32.3 - 35.7 g/dL [facility] RDW CV 12.7 11.1 - 14.9 % [facility] RDW SD 43.6 35.7 - 48.1 fL [facility] NRBC abs 0.00 0.00 - 0.01 K/cumm [facility] Blood 06/16/2023 10:4 1 AM CDT 06/16/2023 6:47 PM CDT us Hannah Pop MD LAB BLOOD ORDERABLES Final Result [facility] [address] [address] Department of Laboratories [place] [phone] documented in this encounter Visit Diagnoses Diagnosis Encounter for supervision of other normal in third trimester- Primary 27 weeks gestation of Encounter for supervision of other normal in third trimester 27 weeks gestation of Acute vaginitis Unspecified vaginitis and vulvovaginitis documented in this encounter Care Teams Bulb Packer Relationship Specialty Start Date End Date No, Physician PCP - General 03/09/23 documented as of this encounter
--- OUTSIDE RECORDS SUMMARY | 2024-10-15 16:14 | XMS_ITS | Encounter Summary ---
Author Organization [facility] Address [address] [place] [address] Care Team Providers Care Air Chipper Name Role Phone No, Physician Primary Care Provider [phone] Reason for Visit * Reason Comments Routine Visit Encounter Details Date Type Department Care Team (Late st Contact Info) Description 07/17/2023 9:50 AM CDT Office Visit [facility] [address] [place] [phone] Margareth Herrera, DO [address] [place] [address] Encounter for supervision of other normal in [...] AM CDT Pt doing well. Went to [place] last week for ctx and pelvic pressure [...] ur, POC Negative Negative Comment:n Lot Number [id number] Urine 07/17/2023 9:50 AM CDT us Margareth Herrera DO POINT OF CARE TEST YIMI CLEARYCAL Final Result documented in this encounter Visit Diagnoses Diagnosis Encounter for supervision of other normal in third trimester- Primary Request for sterilization documented in this encounter Care Teams Air Chipper Relationship Specialty Start Date End Date No, Physician PCP - General 03/09/23 documented as of this encounter
--- OUTSIDE RECORDS SUMMARY | 2024-10-15 16:14 | XMS_ITS | Encounter Summary ---
Author Organization [facility] Address [address] [place] [address] Care Team Providers Care Remote Sensing Advisor Name Role Phone No, Physician Primary Care Provider [phone] Reason for Visit * Diagnostic Imaging (Routine) - Closed Specialty Diagnoses / Procedures Referred By Contac t Referred To Contact Diagnoses Malposition of fetus, single or unspecified fetus Procedures US Ob Limited Margareth Herrera, DO [address] [place] [address] Phone: tel: fax: [facility] Referral ID Status Reason Start Date Expiration Date Visits Re quested Visits Authorized [id number] Closed 08/02/2023 08/31/2024 1 1 Encounter Details Date Type Department Care Team (Latest Contact Info) Description 08/02/2023 11:40 AM CDT Ancillary Procedure [facility] [address] [place] [phone] Malposition of fetus, single or unspecified fetus [...] place to sleep or slept in a skilled nursing (including now)? No 04/14/2023 Comments Yes Sex [...] fetus documented in this encounter Care Teams Remote Sensing Advisor Relationship Specialty Start Date End Date No, Physician PCP - General 03/09/23 documented as of this encounter
--- OUTSIDE RECORDS SUMMARY | 2024-10-15 16:15 | XMS_ITS | Encounter Summary ---
Author Organization [facility] Address [address] [address] Care Team Providers Care Director Of Epidemiology Name Role Phone No, Physician Primary Care Provider [phone] Encounter Details Date Type Department Care Team (Late st Contact Info) Description 03/23/2023 12:50 PM CDT Lab [facility] [address] [place] [phone] care, subsequent , second trimester; 15 weeks [...] of documented in this encounter Care Teams Director Of Epidemiology Relationship Specialty Start Date End Date No, Physician PCP - General 03/09/23 documented as of this encounter
--- OUTSIDE RECORDS SUMMARY | 2024-10-15 16:15 | XMS_ITS | Encounter Summary ---
Author Organization [facility] Address [address] [facility] [address] [place] [address] Care Team Providers Care Disaster Recovery Analyst Name Role Phone No, Physician Primary Care Provider [phone] Reason for Visit * Diagnostic Imaging (Routine) - Closed Specialty Diagnoses / Procedures Referred By Lenora pacheco Referred To Contact Diagnoses Encounter to determine viability of , single or unspecified fetus 15 weeks gestation of Procedures US OB 14 Weeks Or Over US Ob Under 14 Weeks Margareth Herrera, DO [address] [place] [address] Phone: tel: fax: [facility] Referral ID Status Reason Start Date Expiration Date Visits Re quested Visits Authorized [id number] Closed 03/09/2023 04/07/2024 1 1 Encounter Details Date Type Department Care Team (Latest Contact Info) Description 03/23/2023 9:10 AM CDT Ancillary Procedure [facility] [address] [place] [address] Encounter to determine viability of , single [...] of documented in this encounter Care Teams Disaster Recovery Analyst Relationship Specialty Start Date End Date No, Physician PCP - General 03/09/23 documented as of this encounter
--- OUTSIDE RECORDS SUMMARY | 2024-10-15 16:15 | XMS_ITS | Encounter Summary ---
Author Organization [facility] Healthcare Address [address] [place] [address] Care Team Providers Care Bilingual Secretary Name Role Phone No, Physician Primary Care Provider Encounter Details Date Type Department Care Team (Latest Contact Info) Description 03/23/2023 11:20 AM CDT - 03/23/2023 11:59 PM CDT Hospital Encounter [address] [address] care, subsequent , second trimester; 15 weeks [...] this encounter Medications at Time of Discharge [id number] [id number] (Kosher Plus Iron) 30 mg iron- [...] CDT) C. trachomatis Not detected Not detected [facility] N. gonorrhoeae Not detected Not detected [facility] Comment: Testing performed by the [facility]. This assay detects Chlamydia trachomatis and [...] - GENE RAL ORDERABLES Final Result [facility]SC[facility] [address] [address] Department [place] [address] * Differential, auto (03/23/2023 11:20 AM CDT) Neutrophil abs 5.5 1.7 - 6.5 K/cumm [facility] Imm gran abs 0.0 0.0 - 0.1 K/cumm [facility] Lymphocyte abs 1.7 0.8 - 3.3 K/cumm [facility] Monocyte abs 0.7 0.2 - 0.8 K/cumm [facility] Eosinophil abs 0.2 0.0 - 0.5 K/cumm [facility] Basophil abs 0.0 0.0 - 0.1 K/cumm [facility] Neutrophil pct 68.0 % [facility] Comment: Interpretive Data Percent cell count reference [...] DO LAB BLOOD ORDERABLES Fi nal Result [facility] [address] [address] Department [place] [address] * Alpha fetoprotein, quad screen (03/23/2023 11:20 [...] CH GA Used In Risk. Dates estimate [facility] alpha Fetoprotein 28.2 ng/mL [facility] Estriol, unconjugated 0.60 ng/mL [facility] HCG, qual 46.1 IUnits/m L [facility] Inhibin A, interpretation 289 pg/mL [facility] Down Syndrome Screen Risk Estimate. <270 [facility] Down Syndrome Maternal Age Risk. [facility] Trisomy 18 risk assessment <1/50,000 <1/100 [facility] alpha fetoprotein See Footnote [facility] Comment: Screen negative for neural tube defects, Down syndrome and trisomy 18. Additional Comments. Not Reported [facility] Recommended Follow Up. None. [facility] General Test Info. See Footnote [facility] Lovett [...] developed and its performance characteristics determined by [facility] in a manner consistent with CLIA requirements. This test has not been cleared or approved by the U.S. Food and Drug Administration. Test Performed by: [facility] [place] [address] [place] [address] Study Manager: Chris Cleveland M.D. Ph.D.; CLIA# [id number] RESULTS SUMMARY Normal risk [facility] CH NEURAL [...] CH INITIAL OR REPEAT TESTING Initial testing [facility] PHYSICIAN PHONE NUMBER [phone] [facility] Blood 03/23/2023 11:2 0 AM CDT 03/23/2023 5:32 PM CDT Margareth Herrera DO LAB GENETIC TESTING Fin al Result Performing Organization Address City/[facility]/ZIP Co de Phone Number [facility]SC[facility] ARMENDARIZ [address] [address] Department [email or web address] [address] * Urine culture Urine, clean voided (03/23/2023 11:20 AM CDT) Report Final Report: Less than 100,000 colonies/mL (clinically insignificant growth based on current clinical standards) [facility] Comment:Testing performed by : [facility], [address] [place]., [address] Organism (CLINICALLY INSIGNIFICANT GROWTH [facility] Urine, clean voided 03/23/2023 11:20 AM CDT 03/23/2023 9:05 PM CDT Narrative [facility] - 03/25/2023 5:16 AM CDT Testing performed by [facility] Microbiology Laboratory ([phone]) Margareth Herrera DO LAB MICROBIOLOGY - GENE RAL ORDERABLES Final Result Performing Organization Address City/[facility]/ZIP Co de Phone Number [facility] ARMENDARIZ [address] [address] Department of [email or web address] [place], [place] [phone] * (ABNORMAL) Drugs of Abuse Screen, Urine without Confirmation (03/23/2023 11:20 AM CDT) [facility] Amphetamine, ur Not Detected CutOff 500ng/mL [facility] [...] 2018. Benzodiazepines, ur Not Detected CutOff 100ng/mL [facility] Comment: Interpretive Data - Benzodiazepines: ??Samples containing greater than 100 ng/mL nordiazepam or other cross-reacting compounds are reported as positive. ?? False positive and false negative results are possible. ?? Current Interpretive Data was last reviewed 2018. Cannabinoids, ur Detected(A) CutOff 50 ng/mL [facility] Comment: Interpretive Data - Cannabinoids: ??Samples containing greater than 50 ng/mL delta-9 THC -COOH or other cross-reacting compounds are reported as positive. ??False positive and false negative results are possible. ?? Current Interpretive Data was last reviewed 2018. Cocaine, ur Not Detected CutOff 150ng/mL [facility] Comment: Interpretive Data - Cocaine: ??Samples containing greater than 150 ng/mL benzoylecgonine or other cross-reacting compounds are reported as positive. False positive and false negative results are possible. Current Interpretive Data was last reviewed 2018. Fentanyl, Ur Not Detected Cutoff 1 ng/mL [facility] Comment: Interpretive Data - Fentanyls: ??Samples containing [...] DO LAB URINE ORDERABLES Fi nal Result [facility] [address] [address] Department [place] [address] * HIV 1/2 Antibody plus p24 Antigen Blood (03/23/2023 11:20 AM CDT) Pathologist [facility] HIV 1/2 ab + p24 ag Nonreactive Nonreactive [facility] Comment: Nonreactive for HIV-1 antigen and HIV-1/HIV-2 antibodies. No laboratory evidence of HIV infection. If acute HIV infection is suspected, consider testing for HIV-1 RNA. Blood 03/23/2023 11:2 0 AM CDT 03/23/2023 5:32 PM CDT Margareth Herrera DO LAB MICROBIOLOGY - GENE RAL ORDERABLES Final Result [facility] [address] [address] Department [email or web address] [address] * RPR Blood (03/23/2023 11:20 AM CDT) [facility] RPR Nonreactive Nonreactive [facility] Blood 03/23/2023 11:2 0 AM CDT 03/23/2023 5:32 PM CDT Margareth Herrera DO LAB MICROBIOLOGY - GENE RAL ORDERABLES Final Result Performing Organization Address City/[facility]/ZIP Co de Phone Number OSCAR [address] [address] Department [email or web address] [address] * (ABNORMAL) Varicella Zoster IgG antibody Blood (03/23/2023 11:20 AM CDT) Pathologist [facility] VZV IgG Nonreacti ve(A) Reactive [facility] Comment: Non-reactive: No detectable antibody to Varicella-zoster virus.??Such individuals are presumed to be uninfected and to be susceptible to primary infection. Testing performed by: [facility], [address] [facility], [place]., [address] Blood 03/23/2023 11:2 0 AM CDT 03/24/2023 12:51 PM CDT us Margareth Herrera DO LAB MICROBIOLOGY - GENE RAL ORDERABLES Final Result [facility] ARMENDARIZ [address] [address] Department [place] [address] * Type and screen (03/23/2023 [...] ORD ERABLES Final Result Performing Organization Address [facility] Co de Phone Number OSCAR ARMENDARIZ [address] [address] Department [place] [address] * Rubella IgG antibody (03/23/2023 11:20 AM CDT) Pathologist [facility] Rubella IgG Reactive [facility] Comment: Reactive: Results suggest response to immunization or prior exposure to the virus. Testing performed by: [facility], [address] [place]., [address] Blood 03/23/2023 11:2 0 AM CDT 03/24/2023 12:51 PM CDT Margareth Herrera DO LAB MICROBIOLOGY - GENE RAL ORDERABLES Final Result Performing Organization Address City/[facility]/ZIP Co de Phone Number [facility]SC[facility] ARMENDARIZ [address] [address] Department [email or web address] [address] * Hepatitis B Surface Antigen (03/23/2023 11:20 AM CDT) HepBsAg Nonreactive Nonreactive [facility] Blood 03/23/2023 11:2 0 AM CDT 03/23/2023 5:32 PM CDT Margareth Herrera DO LAB MICROBIOLOGY - GENE RAL ORDERABLES Final Result Performing Organization Address City/[facility]/ZIP Co de Phone Number OSCAR ARMENDARIZ [address] [facility] [email or web address] [address] * Hepatitis C antibody (03/23/2023 11:20 AM CDT) Hep C Ab Nonreactive Nonreactive [facility] Comment: Interpretive Data Nonreactive: Antibodies [...] Edited Result - Final Performing Organization Address City/[facility] Co de Phone Number OSC[facility] ARMENDARIZ [address] [address] [facility] [email or web address] [address] * CBC with auto differential (03/23/2023 11:20 AM CDT) Pathologist [facility] WBC 8.1 3.8 - 9.9 K/cumm [facility] Hgb 11.9 11.9 - 15.5 g/dL [facility] Hct 35.9 35.6 - 45.5 % [facility] Plt 273 150 - 400 K/cumm [facility] MPV 10.1 9.1 - 12.3 fL [facility] RBC 4.04 3.90 - 5.20 M/cumm [facility] MCV 88.9 81.3 - 96.4 fL [facility] MCH 29.5 27.1 - 33.3 pg [facility] MCHC 33.1 32.3 - 35.7 g/dL [facility] RDW CV 13.7 11.1 - 14.9 % [facility] RDW SD 45.0 35.7 - 48.1 fL [facility] NRBC abs 0.00 0.00 - 0.01 K/cumm [facility] Blood 03/23/2023 11:2 0 AM CDT 03/23/2023 5:32 PM CDT us Margareth Herrera DO LAB BLOOD ORDERABLES Fi nal Result [facility] [address] [facility] [place] [address] * Pap with reflex to High Risk HPV (03/23/2023 8:02 AM CDT) Thin prep (Pap test) 03/23/2023 8:02 AM CDT 03/23/2023 8:02 AM CDT Narrative PATHOLOGY CH - 03/28/2023 1:21 PM CDT [facility] Department of Pathology [id number] [place], [place] [id number] Final Report Note to Patients: This report [...] ??HANNAH PYLE Address: ??[address], ?? [place], [place] [address] Gender: ??F : ??1995 (Age: 27) Service: ?? Location: ?? Hospital #: ??[id number] Patient Type: ?? SPECIMEN Taken: ??03/23/2023 Received: ??03/23/2023 Accessioned:: ??03/24/2023 Reported: ??03/28/2023 Physician(s): Nessa Mcgee D.O. Diagnosis: SOURCE OF SPECIMEN ? Imaged Thinprep Pap Test w/ Reflex HPV - Hospital Administrator Cytologic Material: STATEMENT OF ADEQUACY ?- Specimen satisfactory for interpretation; endocervical/transformation zone component absent or ?insufficient ? GENERAL CATEGORIZATION: ?- Negative for intraepithelial lesion or malignancy ? INTERPRETATION: ?- Numerous inflammatory cells present ? DISHA Faulkner(ASCP) Report Electronically Reviewed and Signed Out By ??DISHA Faulkner(ASCP) ??03/28/2023 13:21:27Specimen(s) Received: A: Imaged Thinprep Pap Test w/ Reflex HPV - Hospital Administrator Cytologic Material Clinical History: Last Menstrual Period: [...] determined by the Surgical Pathology Department at [facility] as part of an ongoing quality checker program and in compliance with federally mandated [...] characteristics determined by the Surgical Pathology Department [facility]. ??It has not been cleared or approved by the U. S. Food and Drug Administration. Margareth Herrera DO LAB CYTOLOGY ORDERABLES Final Result Performing Organization Address City/State/[facility] Co de Phone Number PATHOLOGY [address] [place] [address] documented in this encounter Visit Diagnoses Diagnosis care, subsequent , second trimester 15 weeks gestation of Screen for sexually transmitted diseases Screening examination for venereal disease Screening for malignant neoplasm of cervix Screening for malignant neoplasm of the cervix documented in this encounter Care Teams Bilingual Secretary Relationship Specialty Start Date End Date No, Physician PCP - General 03/09/23 documented as of this encounter
--- OUTSIDE RECORDS SUMMARY | 2024-10-15 16:15 | XMS_ITS | Encounter Summary ---
Author Organization [facility] Address [address] [address] Care Team Providers Care Test Rack Operator Name Role Phone No, Physician Primary Care Provider [phone] Reason for Visit * Reason Comments New Patient Initial Visit Encounter Details Date Type Department Care Team (Late st Contact Info) Description 03/23/2023 10:10 AM CDT Office Visit [facility] [address] [place] [id number] Margareth Herrera, DO [address] [place] [address] care, subsequent , second trimester (Primary Dx); [...] MD 6 Current 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 Review of Systems Constitutional: [...] was counseled on the limitations of our [facility] and that can not guarantee the component inspector OB will offer a TOLAC if she [...] ARMENDARIZ Comment: Testing performed by the [facility]. This assay detects Chlamydia trachomatis [...] GENE RAL ORDERABLES Final Result OSCAR ARMENDARIZ [address] Department [place] [address] * (ABNORMAL) Varicella Zoster IgG antibody Blood (03/23/2023 11:20 AM CDT) VZV IgG Nonreacti ve(A) Reactive CERNER Comment: Non-reactive: No detectable antibody to Varicella-zoster virus.??Such individuals are presumed to be uninfected and to be susceptible to primary infection. Testing performed by: [facility], [address] [place]., [address] Blood 03/23/2023 11:2 0 AM CDT 03/24/2023 12:51 PM CDT Margareth Herrera DO LAB MICROBIOLOGY - GENE RAL ORDERABLES Final Result Performing Organization Address [facility] Co de Phone Number [facility] [phone] [place] [address] * Urine culture Urine, clean voided (03/23/2023 11:20 AM CDT) Report Final Report: Less than 100,000 colonies/mL (clinically insignificant growth based on current clinical standards) OSCAR Comment:Testing performed by : [facility], [address] [facility], [place]., [address] Organism (CLINICALLY INSIGNIFICANT GROWTH CERNER Urine, clean voided 03/23/2023 11:20 AM CDT 03/23/2023 9:05 PM CDT Narrative [facility] - 03/25/2023 5:16 AM CDT Testing performed by [facility] ([phone]) Margareth Herrera DO LAB MICROBIOLOGY - GENE RAL ORDERABLES Final Result Performing Organization Address [facility] Co de Phone Number OSCAR [phone] [place] [address] * Type and screen (03/23/2023 11:20 AM CDT) Rinku, indirect Negative CERNER CH ABO Rh B Positive CERNER Blood 03/23/2023 11:2 0 AM CDT 03/23/2023 5:36 PM CDT N[facility]ative [facility] - 03/23/2023 7:02 PM CDT Has the patient had Daratumumab or Isatuximab in the past 6 months?->Unknown Margareth Herrera LAB BLOOD BANK TEST ORD ERABLES Final Result Performing Organization Address City/[facility]/ZIP Co de Phone Number OSCAR [phone] [address] Department of [employer] [place], [place] [id number] * Rubella IgG antibody (03/23/2023 11:20 AM CDT) Rubella IgG Reactive [facility] Comment: Reactive: Results suggest response to immunization or prior exposure to the virus. Testing performed by: [facility], [address] [place]., [address] Blood 03/23/2023 11:2 0 AM CDT 03/24/2023 12:51 PM CDT Margareth Herrera LAB MICROBIOLOGY - GENE RAL ORDERABLES Final Result Performing Organization Address City/[facility]/ZIP Co de Phone Number OSCAR [phone] [address] [place] [address] * RPR Blood (03/23/2023 11:20 AM CDT) RPR Nonreactive Nonreactive [facility] Blood 03/23/2023 11:2 0 AM CDT 03/23/2023 5:32 PM CDT Margareth Herrera LAB MICROBIOLOGY - GENE RAL ORDERABLES Final Result [facility] [address] [place] [address] * HIV 1/2 Antibody plus p24 Antigen Blood (03/23/2023 11:20 AM CDT) HIV 1/2 ab + p24 ag Nonreactive Nonreactive [facility] Comment: Nonreactive for HIV-1 antigen and HIV-1/HIV-2 antibodies. No laboratory evidence of HIV infection. If acute HIV infection is suspected, consider testing for HIV-1 RNA. Blood 03/23/2023 11:2 0 AM CDT 03/23/2023 5:32 PM CDT us Margareth Herrera DO LAB MICROBIOLOGY - GENE RAL ORDERABLES Final Result Performing Organization Address [facility] Phone Number [facility] [phone] [address] [facility] [place] [address] * Hepatitis C antibody (03/23/2023 11:20 AM CDT) Hep C Ab Nonreactive Nonreactive [facility] Comment: Interpretive Data Nonreactive: Antibodies to HCV [...] Edited Result - Final Performing Organization Address [facility] de Phone Number [facility] [phone] [address] [facility] [place] [address] * Hepatitis B Surface Antigen (03/23/2023 11:20 AM CDT) HepBsAg Nonreactive Nonreactive [facility] Blood 03/23/2023 11:2 0 AM CDT 03/23/2023 5:32 PM CDT Margareth Hrerera DO LAB MICROBIOLOGY - GENE RAL ORDERABLES Final Result Performing Organization Address [facility] Phone Number [facility] [phone] Department [place] [address] * (ABNORMAL) Drugs of Abuse Screen, Urine without Confirmation (03/23/2023 11:20 AM CDT) Pathologist [facility] Amphetamine, ur Not Detected CutOff 500ng/mL OSC[facility] [...] 2018. Benzodiazepines, ur Not Detected CutOff 100ng/mL [facility] Comment: Interpretive Data - Benzodiazepines: ??Samples [...] LAB URINE ORDERABLES Fi nal Result [facility] [address] [facility] Department [place] [address] * CBC with auto differential (03/23/2023 11:20 AM CDT) WBC 8.1 3.8 - 9.9 K/cumm [facility] Hgb 11.9 11.9 - 15.5 g/dL [facility] Hct 35.9 35.6 - 45.5 % [facility] Plt 273 150 - 400 K/cumm [facility] MPV 10.1 9.1 - 12.3 fL [facility] RBC 4.04 3.90 - 5.20 M/cumm [facility] MCV 88.9 81.3 - 96.4 fL [facility] MCH 29.5 27.1 - 33.3 pg [facility] MCHC 33.1 32.3 - 35.7 g/dL [facility] RDW CV 13.7 11.1 - 14.9 % [facility] RDW SD 45.0 35.7 - 48.1 fL [facility] NRBC abs 0.00 0.00 - 0.01 K/cumm [facility] Blood 03/23/2023 11:2 0 AM CDT 03/23/2023 5:32 PM CDT Margareth Herrera DO LAB BLOOD ORDERABLES Fi nal Result [address] Department [place] [address] * Pap with reflex to High Risk HPV (03/23/2023 8:02 AM CDT) Thin prep (Pap test) 03/23/2023 8:02 AM CDT 03/23/2023 8:02 AM CDT Narrative PATHOLOGY [facility] - 03/28/2023 1:21 PM CDT [facility] Department of Pathology [address] [place] [address] Final Report Note to Patients: This [...] ??HANNAH LUIS Address: ??[address], ?? [place], [place] ?? Gender: ??F : ??1995 (Age: 27) Service: ?? Location: ?? Hospital #: ??[id number] Patient Type: ?? SPECIMEN Taken: ??03/23/2023 Received: ??03/23/2023 Accessioned:: ??03/24/2023 Reported: ??03/28/2023 Physician(s): Nessa Mcgee D.O. Diagnosis: SOURCE OF SPECIMEN ? Imaged Thinprep Pap Test w/ Reflex HPV - Crook Operator Cytologic Material: STATEMENT OF ADEQUACY ?- Specimen satisfactory for interpretation; endocervical/transformation zone component absent or ?insufficient ? GENERAL CATEGORIZATION: ?- Negative for intraepithelial lesion or malignancy ? INTERPRETATION: ?- Numerous inflammatory cells present ? DISHA Faulkner(ASCP) Report Electronically Reviewed and Signed Out By ??DISHA Faulkner(ASCP) ??03/28/2023 13:21:27Specimen(s) Received: A: Imaged Thinprep Pap Test w/ Reflex HPV - Crook Operator Cytologic Material Clinical History: Last Menstrual Period: [...] by the Surgical Pathology Department at [facility] as part of an ongoing quality assurance tech program and in compliance with federally [...] determined by the Surgical Pathology Department [facility]. ??It has not been cleared or approved by the U. S. Food and Drug Administration. Margareth Herrera DO LAB CYTOLOGY ORDERABLES Final Result PATHOLOGY [address] [place] [address] documented in this encounter Visit Diagnoses Diagnosis [...] may reflect changes made after this encounter. [id number] olic (Kosher Plus Iron) 30 mg iron- 1 mg tablet Take 1 tablet by mouth daily 03/06/2021 08/22/2023 added in this encounter Care Teams Test Rack Operator Relationship Specialty Start Date End Date No, Physician PCP - General 03/09/23 documented as of this encounter
== END 2024-10-12 00:35 | disposition home or self-care (01) ==
PROVIDERS: Emergency Medicine; Emergency Provider Registered Nurse
DX: A60.00 Herpesviral infection of urogenital system, unspecified (principal); J02.0 Streptococcal pharyngitis; Z20.822 Contact with and (suspected) exposure to COVID-19
CPT/HCPCS: 87637; 87651; 99283; A9270

== ENCOUNTER 2024-10-12 23:02 | Emergency (ER) | payer OTHER, SELFPAY ==
[2024-10-12 23:10] VITALS: BP 125/79; PULSE 84; RESP 20; TEMP 36.2; O2SAT 98
[2024-10-12 23:22] VITALS: BP 138/88; PULSE 86; RESP 16; TEMP 36.4; O2SAT 100
--- NOTE | 2024-10-13 00:28 | ED.WOUNDLAC ---
HPI - Wound/Laceration General Chief Complaint: Wound/Laceration Stated Complaint: L middle finger lac Time Seen by Provider: 10/12/24 23:36 Source: patient Mode of arrival: ambulatory Limitations: no limitations History of Present Illness HPI narrative: Patient is a 29-year-old female who presents the ED with report of a laceration to her left 3rd digit. Patient reports she was cutting an avocado when she slipped and the knife cut her finger. She sustained a small laceration to the flexor surface of her 3rd digit. Denies numbness. Denies any other injuries. Tetanus up-to-date. Related Data Allergies Allergy/AdvReac Type Severity Reaction Status Date / Time No Known Allergies Allergy Verified 10/12/24 23:03 Review of Systems Review of Systems: All systems reviewed & are unremarkable except as noted in HPI. All systems reviewed & are unremarkable except as noted in HPI and below PMFSH Past Medical History Medical History delivery delivered Depression Colitis Surgical History Surgical History History of section Social History Social History Social History: Smokes rarely. Smoking status: Former smoker Tobacco type: e-cigarettes/vaping Second hand tobacco smoke exposure: No Alcohol intake: current Substance use: never Lack of Transportation: No Lack of Food: Never True Current Housing: I Have Housing Concerned About Future Housing: No Difficulty Paying Gas/Electric Bills: No Difficulty Paying for Meds: No Currently Unemployed: No Education: Grade School Difficulty w/ Childcare or Family Care: No Spiritual care concerns: No Exam Narrative: GENERAL: Well appearing, obese with BMI of 30.8, non-toxic, in no acute distress. HEAD: Normocephalic, atraumatic. RESPIRATORY: Airway patent, respirations nonlabored. CARDIOVASCULAR: Regular rate and rhythm. Radial pulses strong and easily palpable. MUSCULOSKELETAL: Moves all extremities. Mild limited range of motion of left 3rd finger flexion due to pain. 0.5 cm superficial laceration on flexor surface of left 3rd digit just distal from PIP joint. No active sensation intact. Capillary refill intact. SKIN: Warm, dry, normal color. NEURO: A&O X3. Speech clear. PSYCHIATRIC: Appropriate mood and affect. Normal interaction. Course Vital Signs Vital signs: Vital Signs Temperature 97.2 F L 10/12/24 23:10 Pulse Rate 84 10/12/24 23:10 Respiratory Rate 20 10/12/24 23:10 Blood Pressure 125/79 10/12/24 23:10 Pulse Oximetry 98 10/12/24 23:10 Oxygen Delivery Room Air 10/12/24 23:10 Temperature 97.6 F 10/12/24 23:22 Pulse Rate 86 10/12/24 23:22 Respiratory Rate 16 10/12/24 23:22 Blood Pressure 138/88 10/12/24 23:22 Pulse Oximetry 100 10/12/24 23:22 Oxygen Delivery Room Air 10/12/24 23:10 Procedures Laceration Laceration 1: Date: 10/13/24 Time: 00:20 Site: hand (3rd digit) Side (If applicable): left Size (cm): 0.5 Description: linear Depth: simple, single layer Local Anesthetic: lidocaine 1% Amount of anesthesia used (mL): 2 Pre-repair: wound explored and irrigated ====== Skin Level ====== Skin layer closed with: nylon Size (cm): 4-0 Number of sutures: 1 Technique: simple, interrupted ====== Subcutaneous Layer ====== ====== Muscle Layer ====== ====== Tendon Layer ====== MDM - Wound/Laceration MDM Narrative Medical decision making narrative: Superficial laceration to left 3rd digit. Repaired without complications. Tetanus up-to-date. Given wound care instructions and return precautions. Discharged in stable condition. Discharge Plan Discharge Clinical Impression: Laceration of finger of left hand Patient Disposition: Home, Self-Care Condition: Stable Instructions: Antibiotic Form, Care For Your Stitches (ED), Laceration (ED) Additional Instructions: Return to the ED or visit an urgent care or your PCP for follow-up and wound check/suture removal in 10 to 14 days. Keep the wound as dry as possible for 24 hours. You may remove the bandage after 24 hours and wash with simple soap and water, but do not scrub. Re-bandage as needed. Recommend Tylenol and ibuprofen as needed for pain. Return to the ED if you experience uncontrolled bleeding, fever, chills, pus-like drainage, or redness/swelling/warmth surrounding the wound, as these could be signs of an infection. Patient Language: Nepali Prescriptions: No Action hydrocodone-acetaminophen 5-325 mg Tablet 1 tablet PO Q3H PRN (Reason: Moderate Pain (4-6)) Qty: 12 0RF ibuprofen 600 mg Tablet 600 mg PO Q6H PRN (Reason: Cramping) Qty: 20 0RF hydrocodone-acetaminophen 5-325 mg tablet 1 tablet PO Q6H PRN (Reason: pain) Qty: 20 0RF ibuprofen 600 mg tablet 600 mg PO TID Qty: 20 0RF acyclovir 800 mg tablet 800 mg PO BID Qty: 4 0RF hydrocortisone [Anusol-HC] 2.5 % cream with perineal applicator 1 applic RECTAL DAILY PRN (Reason: pain) Qty: 30 0RF amoxicillin 500 mg capsule 500 mg PO Q12H Qty: 20 0RF Follow-up/Referrals: PHYSICIAN,FABRICATION MACHINE OPERATOR [Primary Care Provider] - Time of Disposition: 00:30
--- OUTSIDE RECORDS SUMMARY | 2024-10-17 11:04 | XMS_ITS | Clinical Summary ---
Author Organization [facility] Address [address] [place] [address] Care Team Providers Care Jail Keeper Name Role Phone Unavailable Primary Care Provider Unavailabl e Source Comments [facility],non-owned Affiliates and Associated Physician Practices is amultiple site organization consisting of ambulatory clinics and hospital sitesin [place], [place], [place] and [place]. This disclosure is being madepursuant to the Care Everywhere program and may not contain all information available regarding this patient. Last updated 18.[facility] Allergies Active Allergy Reactions Criticality Noted Date [...]
--- OUTSIDE RECORDS SUMMARY | 2024-10-17 11:04 | XMS_ITS | Referral Summary ---
Author Organization [facility] Address [address] [place] [address] Care Team Providers Care Software Engineer Kernel Name Role Phone Unavailable Primary Care Provider Unavailabl e Source Comments [facility],non-owned Affiliates and Associated Physician Practices is amultiple site organization consisting of ambulatory clinics and hospital sitesin [place], [place], [place] and [place]. This disclosure is being madepursuant to the Care Everywhere program and may not contain all information available regarding this patient. Last updated 18.[facility] Mashed jobs Allergies Active Allergy Reactions Criticality Noted Date [...]
--- OUTSIDE RECORDS SUMMARY | 2024-10-17 11:04 | XMS_ITS | Patient Health Summary ---
Author Organization [facility] Address [address] [facility] [place] [address] Care Team Providers Care Circular Saw Edge Fuser Name Role Phone Unavailable Primary Care Provider Unavailabl e Note from [facility],non-owned Affiliates and Associated Physician Practices is amultiple site organization consisting of ambulatory clinics and hospital sitesin [place], [place], [place] and [place]. This disclosure is being madepursuant to the Care Everywhere program and may not contain all information available regarding this patient. Last updated 18.[facility] Allergies * Amoxicillin(Rash) -Medium Criticality Medications * [...] HCT PANEL (03/05/2021 7:14 AM CDT) Pathologist [facility] Hemoglobin 11.1(L) 12.0 - 15.6 gm/dL 03/05/2021 8:29 AM CDT [facility] Hematocrit 34.4(L) 35.9 - 45.5 % 03/05/2021 8:29 AM CDT [facility] Blood BLOOD SPECIMEN / Unknown Lab Venipuncture / Unknown 03/05/2021 7:14 AM CDT 03/05/2021 8:22 AM CDT Fabrice Solis MD LAB - HEMATOLOGY ORD ERABLES [facility] [address] [place] [address] * PATHOLOGY TISSUE EXAM (STL) (03/04/2021 11:16 PM CDT) Pathologist [facility] Case Report Surgical Pathology Report ? Case: [id number] ? Authorizing Provider: ??Chelsie Astorga MD ?Collected: ? 03/04/2021 11:16 PM ? Ordering Location: ? [facility] 5 R ? Received: ?03/05/2021 08:34 AM ? Pathologist: ? Carline Sorto MD ? Specimen: ?Placenta 3rd Trimester ? 03/08/2021 11:28 AM [facility] Final Diagnosis Placenta, vaginal delivery - Small, hypermature placenta (weight <10th percentile for gestational age) - membranes with no histopathologic abnormality - Three-vessel umbilical cord with no histopathologic abnormality 03/08/2021 11:28 AM [facility] Clinical History The patient is a 25-year-old woman at 34 weeks, 0 days gestation, with premature rupture of membranes 02/13. Procedure/findings: vaginal delivery, baby to NICU. 03/08/2021 11:28 AM [facility] Gross Description The requisition and specimen [...] red-morales, spongy cut surfaces with no lesions. Center Sales And Service Associate sections submitted as follows: A1-umbilical cord and membrane roll, A2-placental disc central, A3-placental disc peripheral. LJ 03/08/2021 11:28 AM [facility] Microscopic Description Microscopic examination substantiates the above diagnosis. 03/08/2021 11:28 AM [facility] Disclaimer All histochemical and/or immunohistochemical results are interpreted with controls that demonstrate appropriate staining reactions before reporting results. Note on use of immunocytochemistry reagents: This test was developed and its performance characteristic determined by [facility], Department of Laboratory Medicine. It has not [...] interpreted with caution. 03/08/2021 11:28 AM CDT [facility] Embedded Images 03/08/2021 11:28 AM CDT [facility] Pathology/Cytolo gy ENTIRE PLACENTA / Unknown Collection / Unknown 03/04/2021 11:16 PM CDT 03/05/2021 8:34 AM CDT Chelsie Astorga MD LAB - PATHOLOGY /CYTOLOGY ORDERABLES [facility] [address] [place] [phone] * (ABNORMAL) BLOOD GASES CORD ARTERIAL (03/04/2021 [...] 03/04/2021 11:04 PM CDT [facility] [address] [employer] [address] [place] [id number] 03/04/2021 11:04 PM CDT [facility] Blood, arterial CORD BLOOD SPECIMEN / Unknown 03/04/2021 10:52 PM CDT 03/04/2021 10:52 PM CDT Chelsie Astorga MD LAB - BLOOD GAS ES ORDERABLES [facility] [address] [place] [address] * (ABNORMAL) BLOOD GASES CORD NANCY (03/04/2021 [...] 03/04/2021 11:05 PM CDT [facility] [address] [facility] [address] [place] [id number] 03/04/2021 11:05 PM CDT [facility] Blood CORD BLOOD SPECIMEN / Unknown 03/04/2021 10:52 PM CDT 03/04/2021 10:52 PM CDT Chelsie Astorga MD LAB - BLOOD GAS ES ORDERABLES [facility] [address] [place] [address], [facility] [phone] * EPIDURAL BLOCK PERF (03/04/2021 4:08 PM CDT) Narrative Sharifa Alvarado APRN-[employer]ONE [employer]WYER - 03/04/2021 4:08 PM CDT Sharifa Alvarado APRN-[employer]ONE SAWYER ? 03/04/2021 ??4:09 PM Neuraxial Block Note [...] ??2 Staff: ?? Anesthesia Provider: ??Sharifa Alvarado, LEAFLET DISTRIBUTOR-STONE SAWYER ?? - ?? performed the procedure Trent Phillips MD GENERAL ANESTHESIA ORDERABLES * TYPE + SCREEN PANEL (03/04/2021 7:33 AM CDT) Only the most recent of3 resultswithin the time period is included. Pathologist [facility] ABO Rh B POS 03/04/2021 8:20 AM CDT [facility] Comment:History checked. Antibody Screen NEG 8:20 AM CDT [facility] Blood Bank BLOOD SPECIMEN / Unknown Venipuncture / Unknown 03/04/2021 7:33 AM CDT 03/04/2021 7:38 AM CDT Fabrice Solis MD LAB - BLOOD BANK ORD ERABLES [facility] [address] [place] [address], [facility] [phone] * (ABNORMAL) CBC W AUTO DIFFERENTIAL (03/04/2021 7:33 AM CDT) Only the most recent of4 resultswithin the time period is included. WBC 11.6(H) 4.4 - 10.7 x10E9/L 03/04/2021 7:45 AM CDT [facility] WBC Corrected 03/04/2021 7:45 AM CDT [facility] RBC 3.75(L) 3.80 - 5.20 x10E12/L 03/04/2021 7:45 AM CDT [facility] Hemoglobin 10.7(L) 12.0 - 15.6 gm/dL 03/04/2021 7:45 AM CDT [facility] Hematocrit 32.4(L) 35.9 - 45.5 % 03/04/2021 7:45 AM CDT [facility] MCV 86.4 80.7 - 98.3 fl 03/04/2021 7:45 AM CDT [facility] MCH 28.5 26.7 - 34.0 pg 03/04/2021 7:45 AM CDT [facility] MCHC 33.0 30.8 - 35.9 gm/dL 03/04/2021 7:45 AM CDT [facility] Platelet Count 251 153 - 416 x10E9/L 03/04/2021 7:45 AM CDT [facility] RDW-CV 15.8(H) 12.1 - 14.9 % 03/04/2021 7:45 AM CDT [facility] MPV 9.6 9.4 - 12.9 fl 03/04/2021 7:45 AM CDT [facility] Neutrophils % 64.1 44.0 - 73.0 % 03/04/2021 7:45 AM CDT [facility] Lymphocytes % 22.9 20.0 - 43.0 % 03/04/2021 7:45 AM CDT [facility] Monocytes % 9.7 5.0 - 13.0 % 03/04/2021 7:45 AM CDT [facility] Eosinophils % 2.1 0.0 - 6.0 % 03/04/2021 7:45 AM CDT [facility] Basophils % 0.3 0.0 - 2.0 % 03/04/2021 7:45 AM CDT [facility] Immature Granulocytes 0.9 0 - 1 % 03/04/2021 7:45 AM CDT [facility] Neutrophil Absolute 7.45(H) 2.01 - 7.14 x10E9/L 03/04/2021 7:45 AM CDT [facility] Lymphocytes Absolute 2.67 1.07 - 3.94 x10E9/L 03/04/2021 7:45 AM CDT [facility] Monocytes Absolute 1.13(H) 0.26 - 1.07 x10E9/L 03/04/2021 7:45 AM CDT [facility] Eosinophils Absolute 0.24 0 - 0.47 x10E9/L 03/04/2021 7:45 AM CDT [facility] Basophils Absolute 0.04 0 - 0.08 x10E9/L 03/04/2021 7:45 AM CDT [facility] Immature Granulocytes Absolute 0.11(H) 0.00 - 0.06 x10E9/L 03/04/2021 7:45 AM CDT [facility] nRBC Auto 0 /100 WBC 03/04/2021 7:45 AM CDT [facility] Blood BLOOD SPECIMEN / Unknown Venipuncture / Unknown 03/04/2021 7:33 AM CDT 03/04/2021 7:38 AM CDT Fabrice Solis MD LAB - HEMATOLOGY ORD ERABLES [facility] [address] [place] [address] * NON-STRESS TEST (03/03/2021 11:32 PM CDT) [...] - 170 ug/dL 02/26/2021 3:44 PM CDT [facility] Comment:Attention clinician: Reference Range change. Transferrin 399(H) 180 - 382 mg/dL 02/26/2021 3:44 PM CDT [facility] Comment:Attention clinician: Reference Range change. TIBC Calculated 499(H) 240 - 450 ug/dL 02/26/2021 3:44 PM CDT [facility] Iron Saturation % 9(L) 20 - 50 % 02/26/2021 3:44 PM CDT [facility] Blood BLOOD SPECIMEN / Unknown Venipuncture / Unknown 02/26/2021 3:14 PM CDT 02/26/2021 3:25 PM CDT Hali Tomas LEAFLET DISTRIBUTOR-DIAGRAMMER AND SEAMER LAB - TELEVISION PROGRAM DIRECTOR RY ORDERABLES Performing Organization Address [facility] de Phone Number [facility] [address] [place] [phone] * FERRITIN (02/26/2021 3:14 PM CDT) Ferritin 7 5 - 204 ng/mL 02/26/2021 4:12 PM CDT [facility] Blood BLOOD SPECIMEN / Unknown Venipuncture / Unknown 02/26/2021 3:14 PM CDT 02/26/2021 3:25 PM CDT Hali Tomas LEAFLET DISTRIBUTOR-DIAGRAMMER AND SEAMER LAB - TELEVISION PROGRAM DIRECTOR RY ORDERABLES Performing Organization Address [facility] de Phone Number [facility] [address] [place] [phone] * SONOGRAM - COMPLETE (02/24/2021 9:45 AM CDT) Only the most recent of3 resultswithin the time period is included. Anatomical Region Laterality Modality Other 02/24/2021 9:45 AM CDT Narrative 02/24/2021 11:55 AM CDT ?[facility] [place] [facility] ?PHONE: ??FAX: Pat. Name: ?HANNAH LUIS Pat. No: ?[id number] Study Date: ?? 02/24/2021 ??9:45am , Age: ? 1995, 25 Pregnancies: ?? 5, Para 3, Ab 1 Height: ? 65 in Weight: ? 166 lb LMP: ?Unknown GA by Base: ?? 32w6d ?? SRINIVASA: 04/15/2021 GA by US: ? 33w1d ?? SRINIVASA: 04/13/2021 GA Selected: ??32w6d (From [facility]) SRINIVASA: ?04/15/2021 Referring MD: Junie Brizuela MD Power Technician: ??April Hernandez, HALIE, ANNIE CPT4: ? 21270 BMI: ?27.62 Room: ? 540 Hist/Ind: ? Unknown LMP ?Hx ?EIF ?PPROM MEASUREMENTS & AGE ? GROWTH EVALUATION Measurement ??GA ? Range ? Srce %for GA Ratios ----- ---- ------- BPD ??8.4 cm 33w6d ([id number]) Hadl BPD 71% FL/BPD 0.71 (0.71 - 0.87* HC ??30.7 cm 34w1d (60y0u-23b3d) Hadl HC ??49% FL/AC ??0.20 (0.20 - 0.24) AC ??29.7 cm 33w5d ([id number]) Hadl AC ??74% HC/AC ??1.03 (0.95 - 1.14) FL ?? 6.0 cm 31w0d (24b9x-82v9n) Hadl FL ??5% CI ? 0.77 (0.70 - 0.86) HL ?? 5.2 cm 30w1d (66x9q-78a3l) Cyril HL ??6% GA for sonogram 33w1d (88g3c-43e0a) ?? Weight Estimate: based on (BPD,HC,AC,FL) Avg [...] ?<Electronic Signature> ??02/24/2021 11:55am Fabrice Solis MD [facility] ORDERABLES * (ABNORMAL) FIBRINOGEN ACTIVITY (02/24/2021 1:45 AM CDT) Pathologist [facility] Fibrinogen 418(H) 200 - 400 mg/dL 02/24/2021 2:13 AM CDT [facility] Blood BLOOD SPECIMEN / Unknown Lab Venipuncture / Unknown 02/24/2021 1:45 AM CDT 02/24/2021 1:59 AM CDT Fabrice Solis MD LAB - COAGULATION OR DERABLES Performing Organization Address [facility] de Phone Number [facility] [address] [place] [address] * PTT (02/24/2021 1:45 AM CDT) Pathologist [facility] PTT 23.9 23.0 - 38.4 sec 02/24/2021 2:12 AM CDT [facility] Blood BLOOD SPECIMEN / Unknown Lab Venipuncture / Unknown 02/24/2021 1:45 AM CDT 02/24/2021 1:59 AM CDT Narrative [facility] - 02/24/2021 2:12 AM CDT Heparin Therapeutic Range for PTT: ??71.0 - 109.0 seconds. Fabrice Solis MD LAB - COAGULATION OR DERABLES Performing Organization Address [facility] de Phone Number [facility] [address] [place] [phone] * PT-INR (02/24/2021 1:45 AM CDT) Pathologist [facility] PT 13.3 12.1 - 14.8 sec 02/24/2021 2:11 AM CDT [facility] INR 1.0 0.9 - 1.1 02/24/2021 2:11 AM CDT [facility] Blood BLOOD SPECIMEN / Unknown Lab Venipuncture / Unknown 02/24/2021 1:45 AM CDT 02/24/2021 1:59 AM CDT Narrative [facility] - 02/24/2021 2:11 AM CDT Conventional Warfarin Anticoagulant Therapy: INR Reference Range: ??2.0-3.0 Intensive Warfarin Anticoagulant Therapy: INR Reference Range: ? 2.5-3.5 Fabrice Solis MD LAB - COAGULATION OR DERABLES Performing Organization Address City/[facility]/ZIP Co de Phone Number [facility] [address] [place], [place] [phone] * (ABNORMAL) MAGNESIUM BLOOD (02/24/2021 1:45 AM CDT) [facility] Magnesium 6.0(HH) 1.6 - 2.6 mg/dL 02/24/2021 2:30 AM CDT [facility] Blood BLOOD SPECIMEN / Unknown Lab Venipuncture / Unknown 02/24/2021 1:45 AM CDT 02/24/2021 1:59 AM CDT Fabrice Solis MD LAB - CHEMISTRY ORDE RABLES Performing Organization Address [facility]/ZIP Co de Phone Number [facility] [address] [place] [phone] * (ABNORMAL) DRUG SCREEN TOX URINE PANEL (02/23/2021 6:23 PM CDT) [facility] Amphetamines Screen Urine Not detected Not detected 02/23/2021 7:09 PM CDT [facility] Barbiturates Screen Urine Not detected Not detected 02/23/2021 7:09 PM CDT [facility] Benzodiazepines Screen Urine Not detected Not detected 02/23/2021 7:09 PM CDT [facility] Cannabinoids Screen Urine Detected(A) Not detected 02/23/2021 7:09 PM CDT [facility] Cocaine Screen Urine Not detected Not detected 02/23/2021 7:09 PM CDT [facility] Fentanyl Urine Not detected Not detected 02/23/2021 7:09 PM CDT [facility] Methadone Screen Urine Not detected Not detected 02/23/2021 7:09 PM CDT [facility] Opiate Screen Urine Not detected Not detected 02/23/2021 7:09 PM CDT [facility] Phencyclidine Screen Urine Not detected Not detected 02/23/2021 7:09 PM CDT [facility] Urine URINE / Unknown Collection / Unknown 02/23/2021 6:23 PM CDT 02/23/2021 6:39 PM CDT Narrative [facility] - 02/23/2021 7:09 PM CDT This [...] URINE CHEMISTR Y ORDERABLES Performing Organization Address City/State/[facility] Co de Phone Number [facility] [address] [place], [place] [phone] * CHLAMYDIA + GC AMPLIFIED PROBE (STL) (02/23/2021 6:22 PM CDT) Pathologist [facility] Chlamydia Amplified Probe Negative Negative 02/24/2021 5:54 AM CDT [facility] GC Amplified Probe Negative Negative 02/24/2021 5:54 AM CDT [facility] Microbiology PART OF UTERINE CERVIX / Unknown Collection / Unknown 02/23/2021 6:22 PM CDT 02/23/2021 6:39 PM CDT Narrative [facility] - 02/24/2021 5:54 AM CDT Results based on detection/no detection of ribosomal RNA by amplified method. Fabrice Solis MD LAB - MICROBIOLOGY O RDERABLES [facility] [address] [place] [phone] * TRICHOMONAS RAPID TEST (02/23/2021 6:22 PM CDT) Trichomonas Rapid Test Negative Negative 02/23/2021 7:05 PM CDT [facility] Microbiology VAGINAL SWAB / Unknown Collection / Unknown 02/23/2021 6:22 PM CDT 02/23/2021 6:39 PM CDT Fabrice Solis MD LAB - MICROBIOLOGY O RDERABLES Performing Organization Address City/[facility]/ZIP Co de Phone Number [facility] [address] [place] [address] * BLOOD TYPE VERIFICATION (02/23/2021 6:21 PM CDT) ABO Rh B POS 02/23/2021 7:0 4 PM CDT [facility] Blood Bank BLOOD SPECIMEN / Unknown Venipuncture / Unknown 02/23/2021 6:21 PM CDT 02/23/2021 6:33 PM CDT Fabrice Solis MD LAB - BLOOD BANK ORD ERABLES Performing Organization Address City/[facility] Co de Phone Number [facility] [address] [place], [place] [address] [phone] * CULTURE STREP B (02/23/2021 6:20 PM CDT) Culture Strep B Negative for beta-hemolytic Streptococcus Group B ARTIE 02/27/2021 5:36 AM CDT [facility] Microbiology MISCELLANEOUS SAMPLES / Unknown Collection / Unknown 02/23/2021 6:20 PM CDT 02/23/2021 6:39 PM CDT Fabrice Solis MD LAB - MICROBIOLOGY O RDERABLES Performing Organization Address [facility] Co de Phone Number [facility] [address] [place] [address], [facility] [phone] * (ABNORMAL) RUPTURE OF MEMBRANES EVAL (02/23/2021 5:35 PM CDT) RUPTURE OF MEMBRANES POSITIVE(A ) NEGATIVE 02/23/2021 5:47 PM CDT [facility] Fluid VAGINAL SWAB / Unknown Collection / Unknown 02/23/2021 5:35 PM CDT 02/23/2021 5:38 PM CDT Narrative [facility] - 02/23/2021 5:47 PM CDT A [...] BODY FLUID ORD ERABLES Performing Organization Address [facility] Co de Phone Number [facility] [address] [place] [address]
--- OUTSIDE RECORDS SUMMARY | 2024-10-17 11:05 | XMS_ITS | Encounter Summary ---
Author Organization [facility] Address [facility] [place] [address] Care Team Providers Care Fire Extinguisher Charger Name Role Phone Unavailable Primary Care Provider Unavailabl e Reason for Visit * Auth/Cert Specialty Diagnoses / Procedures Referred By Contac t Referred To Contact Referral ID Status Reason Start Date Expiration Date Visits Re quested Visits Authorized [id number] 1 1 Encounter Details Date Type Department Care Team (Late st Contact Info) Description 03/04/2021 3:55 PM CDT Anesthesia Event [facility] [address] L[address] [place], [place] [phone] Trent Phillips MD [address] [place] [address] Sharifa Alvarado, GENERAL MANAGER ROAD PRODUCTION-WIRE ROPE FABRICATION SUPERVISOR [address] [place] [address] Anesthesia Record Procedure Summary Procedure Name Responsible [...] 29 CM; Lumens: Single Lumen; Gauge: 3 Kuwaiti; Length of Cath(cm): 20 cm; Brand: BARD; Lot: [id number] exp 12/21; Tolerance: Moderate 03/01/21 1003 by [...] this encounter Progress Notes * Quincy Amin APRN-WIRE ROPE FABRICATION SUPERVISOR - 03/05/2021 11:01 AM CDT ANESTHESIA POSTOP [...] COMPLICATIONS: No complications documented. * Sharifa Alvarado APRN-WIRE ROPE FABRICATION SUPERVISOR - 03/04/2021 3:48 PM CDT ANESTHESIA PREOPERATIVE [...] this encounter Procedure Notes * Sharifa Alvarado, GENERAL MANAGER ROAD PRODUCTION-WIRE ROPE FABRICATION SUPERVISOR - 03/04/2021 4:08 PM CDTAssociated Order(s): Neuraxial [...] ??2 Staff: ?? Anesthesia Provider: ??Sharifa Alvarado, TOSHIA-WIRE ROPE FABRICATION SUPERVISOR ?? - ?? performed the procedure Trent [...]
--- OUTSIDE RECORDS SUMMARY | 2024-10-17 11:05 | XMS_ITS | Encounter Summary ---
Author Organization [facility] Address [facility] [place] [address] Care Team Providers Care Water Purifier Operator Name Role Phone Unavailable Primary Care Provider Unavailabl e Reason for Visit * Auth/Cert Specialty Diagnoses / Procedures Referred By Contac t Referred To Contact Referral ID Status Reason Start Date Expiration Date Visits Re quested Visits Authorized [id number] 1 1 Encounter Details Date Type Department Care Team (Latest Contact Info) Description 02/23/2021 4:20 PM CDT - 03/06/2021 1:00 PM CDT Hospital Encounter HC 6W MOTHER/BABY [address] [place] [address] Fabrice Solis MD [address] [place] [address] AUDIENCE DEVELOPMENT MANAGER Discharge Disposition: Home or Self Care Social [...] from the original note were not included. recovery auditor Discharge Summary 03/19/2021, 8:28 AM Date of [...] Information for the patient's : Shaquille Luis [[id number]] Date of 03/04/2021 Time of : 10:41 [...] Your discharge diagnosis is: (spontaneous vaginal delivery) [225010] No special diet needed Resume your normal [...] the counter Benadryl for relief of itching. Bnee-jwm-uldhcvr medication Use an abdominal binder or belly band for comfort as needed, and use compression stockings (available at pharmacies or online at stores like [employer]) for leg swelling. Follow up with provider Order Specific Question Answer Comments Follow Up Instructions: in 2 weeks with high risk clinic at [address] [place] [address], in Maternal Medicine suite on . Green House Manager will call with appointment Phil Umana MD 03/19/2021 8:28 AM Associated attestation - Elisa Krueger MD - 03/26/2021 6:47 PM CDT [facility] ST[facility] I have reviewed Oneida Luis [...] stay for more information. Please contact your land appraiser for the followin. Any burning or itching [...] example: your cell phone and cell phone marketing strategy manager. PLEASE REMEMBER: 1. Always place your infant [...] - High-risk clinic in 2 weeks - knowledge manager to call with appt. * Sabrina Francisco [...] Krueger MD - 03/06/2021 1:44 PM CDT [facility] I have reviewed Oneida Luis [...] bonding occurs Outcome: Progressing * Thom Hali IngramTOSHIA-EMERGENCY PLANNING AND RESPONSE MANAGER - 03/05/2021 10:32 AM CDT PHARMACY DATA ANALYST OB Progress Note Subjective: Oneida Luis Is [...] Summary Patient Information Patient Name Oneida Luis ([id number]) Legal Sex Female OB History 5 Para [...] PTL: Y A1: 9 A5: 9 Location: [facility] Delivering Clinician: Chelsie Astorga MD Transcribed Labs [...] Blood Loss Admission (Current) from 02/23/2021 in [facility] 5 LDR Estimated Blood Loss 150 [...] 29.7 Comment: H 1.4 18 Matthew Luis [[id number]] Patient Information Patient Name Matthew Luis ([id number]) Legal Sex Male Anesthesia Method: Epidural, IV Narcotic Labor Events labor?: Yes steroids: Full Course GBS Status: negative Antibiotic: clindamycin, other Number of Antibiotic Doses: More than 5 Rupture Date: 03/04/21 Time: 2227 Rupture type: Artificial, Premature, Bulging, Ruptured, Patient Denies Leaking Fluid color: Clear, [place] Fluid odor: Normal Odor Induction: Oxytocin, AROM [...] the patient's : Luis, Baby Boy Oneida [[id number]] Date of 03/04/2021 Time of : 10:41 [...] ACOSTA Initial count verified by: Mahogany ARMSTRONGRN [place] [employer] Lap Pads Sponges Initial counts 0 15 6 0 Added to counts 0 0 0 0 Final counts 0 15 6 0 Final count personnel: DR. LOJA Final count verified by: Mahogany YOST RN Vaginal packing left in?: Neg Accurate final count?: Yes Delivery ([place]) Delivery Date: 03/04/21 Delivery Time: 10:41 PM [...] 34wks. Co-morbidities: - , pelvis proven to 5bm44bi, GBS neg, 02/24 2092g/44% - PPROM @ [...] deceleration x 1 > 2 hours ago [place]: q2 min Cervical Exam Dilation (cm): 3.5 [...] decelerations with return to baseline and reacticity [place]: palpating every 4-5min Unable to fully assess [...] 145 baseline, moderate variability, reactive, no decelerations [place]: minimal ctx Cervical exam Dilation (cm): 1.5 [...] 145 bpm, moderate variability, reactive, no decelerations [place]: uterine irritability Cervical Exam Dilation (cm): 1.5 [...] MD 03/04/2021 9:11 AM * Hali Tomas APRN-EMERGENCY PLANNING AND RESPONSE MANAGER - 03/04/2021 8:22 AM CDT PHARMACY DATA ANALYST MFM Antepartum Progress Note Date: 03/04/2021 Hospital [...] 1631 174 lb 1.6 oz (79 kg) [facility] Labs Component Name 02/26/21 1514 [...] Tomas APRN-CNP - 03/03/2021 8:08 AM CDT PHARMACY DATA ANALYST MFM Antepartum Progress Note Date: 03/03/2021 Hospital [...] Krueger MD - 03/02/2021 3:01 PM CDT [facility] I have reviewed Oneida Luis [...] 10.8* HCT 34.9* 31.6* 33.5* PLTCOUNT [phone] I have the following additions/revision to the [...] once the baby is born. 1:05 PM plant production worker, Denise Rodriguez, met with pt in her room. Discussed items still needed in the home. Pt stated that she is still in need of some items including additional baby clothes and a Pack N Play for the baby to sleep. SW discussed role as mandated veterinary practitioner if cord tissue drug screen results are positive for any illegal or controlled substances; pt verbalized understanding. Discussed ptno longer scheduled for CS, but will be induced on . Discussed PPD and provided PPD information. SW provided W&I Resource Guide. Psychosocial assessment completed. AUDIENCE DEVELOPMENT MANAGER CASE MANAGEMENT PSYCHOSOCIAL ASSESSMENT Reason for Referral: Pt would like help preparing for baby at home Patient diagnosis and relevant medical history: DX: The encounter diagnosis was Premature rupture of membranes, unspecified duration to onset of labor, unspecified gestational age. Father of baby: Shaquille Luis, . Very supportive and involved. Language Barriers: N/A Cultural Barriers: N/A Ethnicity: White/ Lang: POLISH Patient's Address: [address] [place] [address] Pt's phone number: [phone] (home) Family Support (name and phone) Extended Emergency Contact Information Primary Emergency Contact: Shaquille Luis Address: [address] [place] [address] Mobile Relation: Spouse Secondary Emergency Contact: JANES SHANNON Mobile Relation: Mother Barrel Rifler Button needed? No Alternative Top Ironer Family Strengths: Pt stated that her family [...] (Temporary Assistance to Needy Families)- No Food [place]- Yes WIC- Yes SSI- No Insurance: Payor/Plan Subscriber Name Rel Member # Group # MEDICAID AETNA BETTER* ONEIDA LUIS Self [id number] [address] [address] Community Resources Utilized: None identified Designated Out And Out Cigar Maker Hand: [facility] Referrals: Nurses for Newborns- [place] Resident Child protection referral- DFS/DCFS-Name of worker: Phone number: Other- Does the family have the following basic discharge needs? Utilities- Yes Telephone- Yes Car seat- Yes Crib- Yes Baby clothing- Yes Civil Service Worker/School: Older children are attending in person school, pt is a stay at home mother. If she is in need of assistance her mother and father provide childcare assistance. Transportation: Pt has her own vehicle. Family planning: The pt and her AUDIENCE DEVELOPMENT MANAGER have discussed family planning. Recommended discharge plan for infant: Infant to return home with mother. MAXWELL Armstrong [phone] PRN Special Needs Child Caregiver * Buffy Collado MD - 03/01/2021 12:51 [...] would review strip and call back * Laila Dexter RN - 03/01/2021 10:17 AM CDT [...] baseline 145, moderate variability, reactive, no decelerations [place]: irritable, no contractions BSUS: VTX A/p 1. [...] OK to insert midline * Hali Tomas, DOCK OR PIER LABORER-EMERGENCY PLANNING AND RESPONSE MANAGER - 03/01/2021 8:25 AM CDT .PHARMACY DATA ANALYST MFM Antepartum Progress Note Date: 03/01/2021 Hospital [...] bilaterally Labs: No new labs to review NST/[place]: See separate procedure note MEDICATIONS FOR CURRENT [...] of Service: 02/28/21 MD Fabrice Mckenna MD [facility] * Tami Cano RN - 02/28/2021 1:45 AM CDT Shift summary: ([id number]) VSS, afebrile, abdomen nontender. pt denies pain, [...] staff with any changes or concerns. * Fabriec Solis MD - 02/27/2021 8:13 AM CDT [...] AST, TBIL, TPROT, EGFR in the last 46456 hours. NST/[place]: See separate procedure note MEDICATIONS FOR CURRENT [...] 3:35 PM CDT Social Work Progress Note plant production worker, Denise Rodriguez, attempted to meet with pt in her room. Pt was sleeping. SW will followup with pt next week. SW will follow up regarding items pt is still needing in the home at that time. Pt is scheduled for a CS 03/04/21. MAXWELL Armstrong [phone] PRN Special Needs Child Caregiver * Hali Tomas APRN-STEPHIE - 02/26/2021 8:32 AM CDT PHARMACY DATA ANALYST MFM Antepartum Progress Note Date: 02/26/2021 Hospital [...] AST, TBIL, TPROT, EGFR in the last 37250 hours. NST/[place]: See separate procedure note MEDICATIONS FOR CURRENT [...] of Service: 02/25/21 MD Fabrice Mckenna MD [facility] * Delmy Ribeiro MD - 02/25/2021 5:30 AM CDT PGY2 AUDIENCE DEVELOPMENT MANAGER Progress Note In to see patient for [...] SVE: /-3. A little thinner than I production checker her last night. At this time there is not much to offer patient in terms of medications. S/p LR and Tylenol w/o relief. Magnesium not indicated. BPs have bee 90/50s therefore Procardia not able to be used. Continue to monitor closely. Delmy Ribeiro MD 02/25/2021 5:30 AM * Delmy Ribeiro MD - 02/25/2021 2:49 AM CDT PGY2 AUDIENCE DEVELOPMENT MANAGER Progress Note In to see patient for [...] MD - 02/24/2021 10:10 PM CDT PGY2 AUDIENCE DEVELOPMENT MANAGER Progress Note In to see patient for [...] AST, TBIL, TPROT, EGFR in the last 55035 hours. NST/[place]: See separate procedure note MEDICATIONS FOR CURRENT [...] of Service: 02/24/21 MD Fabrice Mckenna MD [facility] * Carline Joy RN - 02/23/2021 [...] MD - 02/23/2021 8:07 PM CDT PGY2 AUDIENCE DEVELOPMENT MANAGER Progress Note In to see patient for [...] AM CDT Non-Stress Test (NST) Oneida Luis [id number] 03/03/2021 Gestational age: 33w6d Indications: pprom Interpretation: [...] AM CDT Non-Stress Test (NST) Oneida Luis [id number] 03/03/2021 Gestational age: 33w6d Indications: pprom Interpretation: [...] PM CDT Non-Stress Test (NST) Oneida Luis [id number] 03/03/2021 Gestational age: 33w6d Indications: pprom Interpretation: [...] AM CDT Non-Stress Test (NST) Oneida Luis [id number] 03/02/2021 Gestational age: 33w5d Indications: pprom Interpretation: [...] AM CDT Non-Stress Test (NST) Oneida Luis [id number] 03/02/2021 Gestational age: 33w5d Indications: pprom Interpretation: [...] 135 bpm, moderate variability, reactive, no decelerations [place]: irritable, no contractions A/P: well-being reassuring, continue testing as ordered or as otherwise indicated Buffy Collado MD 03/02/2021 10:24 AM Associated attestation - Elisa Krueger MD - 03/02/2021 12:24 PM CDT I have reviewed the tracing and concur with the resident's description and interpretation. The FHT is reactive using 15x15 bpm criteria. No FHR decelerations lasting >30 seconds were detected. Elisa Krueger MD [facility] STAFF * Buffy Collado MD [...] 130 bpm, moderate variability, reactive, no decelerations [place]: irritable, no contractions A/P: well-being reassuring, continue testing as ordered or as otherwise indicated Buffy Collado MD 03/02/2021 7:45 AM Associated attestation - Elisa Krueger MD - 03/02/2021 12:24 PM CDT I have reviewed the tracing and concur with the resident's description and interpretation. The FHT is reactive using 15x15 bpm criteria. No FHR decelerations lasting >30 seconds were detected. Elisa Krueger MD [facility] STAFF * Buffy Collado MD [...] 135 bpm, moderate variability, reactive, no decelerations [place]: irritable, no contractions A/P: well-being reassuring, continue testing as ordered or as otherwise indicated Buffy Collado MD 03/02/2021 7:45 AM Associated attestation - Elisa Krueger MD - 03/02/2021 12:23 PM CDT I have reviewed the tracing and concur with the resident's description and interpretation. The FHT is reactive using 15x15 bpm criteria. No FHR decelerations lasting >30 seconds were detected. Elisa Krueger MD [facility] STAFF * Laila Dexter RN [...] PM CDT Non-Stress Test (NST) Oneida Luis [id number] 03/01/2021 Gestational age: 33w4d Indications: pprom Interpretation: [...] AM CDT Non-Stress Test (NST) Oneida Luis [id number] 02/28/2021 Gestational age: 33w3d Indications: pprom Interpretation: [...] AM CDT Non-Stress Test (NST) Oneida Luis [id number] 02/28/2021 Gestational age: 33w3d Indications: pprom Interpretation: [...] AM CDT Non-Stress Test (NST) Oneida Luis [id number] 02/28/2021 Gestational age: 33w3d Indications: pprom Interpretation: [...] OTHER INFORMATION Tami Cano RN Non-Stress Test [facility] Patient Name: Oneida Luis LMP: Patient's last menstrual period was 06/15/2020. Indications: PPROM NST date: 02/27/2021 NST duration: >20 mins Interpretation: Baseline: 135 beats/minute moderate variability Reactive Contractions: Uterine irritability Decelerations: none Impression and Plan: FWB reassuring, continue monitoring as scheduled. Luisana Ye MD 02/28/2021 8:52 AM Associated attestation - Fabrice Solis MD - 02/28/2021 9:28 AM CDT U AUDIENCE DEVELOPMENT MANAGER Attending: I have reviewed the images and [...] Interventions: None Mahsa Sawant RN Non-Stress Test [facility] Patient Name: Oneida Luis LMP: Patient's last menstrual period was 06/15/2020. Indications: PPROM NST date: 02/27/2021 NST duration: >20 mins Interpretation: Baseline: 150 beats/minute moderate variability Reactive Contractions: none Decelerations: none Impression and Plan: FWB reassuring, continue monitoring as scheduled. Luisana Ye MD 02/28/2021 8:52 AM Associated attestation - Fabrice Solis MD - 02/28/2021 9:28 AM CDT [facility] AUDIENCE DEVELOPMENT MANAGER Attending: I have reviewed the images and [...] Interventions: None Mahsa Sawant RN Non-Stress Test [facility] Patient Name: Oneida Luis LMP: Patient's last menstrual period was 06/15/2020. Indications: PPROM NST date: 02/27/2021 NST duration: >20 mins Interpretation: Baseline: 145 beats/minute moderate variability Reactive Contractions: none Decelerations: one shallow variable Impression and Plan: FWB reassuring, continue monitoring as scheduled. Luisana Ye MD 02/28/2021 8:51 AM Associated attestation - Fabrice Solis MD - 02/28/2021 9:29 AM CDT [facility] AUDIENCE DEVELOPMENT MANAGER Attending: I have reviewed the images and [...] OTHER INFORMATION Brittnee Esparza RN Non-Stress Test [facility] Patient Name: Oneida Luis LMP: Patient's last menstrual period was 06/15/2020. Indications: PPROM NST date: 02/26/21 - 02/27/2021 NST duration: >20 mins Interpretation: Baseline: 135 beats/minute moderate variability Reactive [place]: with uterine irritability Decelerations: none Impression and Plan: FWB reassuring, continue monitoring as scheduled. Luisana Ye MD 02/27/2021 8:20 AM Associated attestation - Fabrice Solis MD - 02/27/2021 9:12 AM CDT U AUDIENCE DEVELOPMENT MANAGER Attending: I have reviewed the images and agree with the interpretation for the attached procedure. Fabrice Solis MD * Luisana Ye MD - 02/26/2021 6:58 PM CDT Name: Oneida Luis Date of : 1995 Today's Date: 02/26/2021 [id number] 33w1d NST RESULTS (REA) OBJECTIVE FINDINGS Temp: 98.1 ??F (36.7 ??C), Pulse: 77, Resp: 16, BP: 98/58 NST Indication(s): Premature rupture of membranes Uterine Irritability: Yes Contractions: Irregular Frequency: x2 Duration (sec) Range: 50 Perceived Intensity: Mild OBJECTIVE FINDINGS Movement: Present Monitoring Mode: External Baseline: 145 BPM Variability: Moderate Decelerations: None Accelerations: Yes OTHER INFORMATION Kari Hawley RN Non-Stress Test [facility] Patient Name: Oneida Luis LMP: Patient's last menstrual period was 06/15/2020. Indications: PPROM NST date: 02/26/21 NST duration: >20 mins Interpretation: Baseline: 145 beats/minute moderate variability Reactive Decelerations: None [place]: with uterine irritability Impression and Plan: FWB reassuring, continue monitoring as scheduled. Luisana Ye MD 02/27/2021 8:20 AM Associated attestation - Fabrice Solis MD - 02/28/2021 10:13 AM CDT U AUDIENCE DEVELOPMENT MANAGER Attending: I have reviewed the images and agree with the interpretation for the attached procedure. Fabrice Solis MD * Kari Hawley RN - 02/26/2021 12:36 PM CDT Name: Oneida Luis Date of : 1995 Today's Date: 02/26/2021 [id number] 33w1d NST RESULTS (REA) OBJECTIVE FINDINGS Temp: [...] PM CDT Non-Stress Test (NST) Oneida Luis [id number] 02/26/2021 Gestational age: 33w1d Indications: pprom Interpretation: [...] AM CDT Non-Stress Test (NST) Oneida Luis [id number] 02/25/2021 Gestational age: 33w0d Indications: pprom Interpretation: [...] AM CDT Non-Stress Test (NST) Oneida Luis [id number] 02/25/2021 Gestational age: 33w0d Indications: pprom Interpretation: Baseline: 130 beats/minute reactive Variability: moderate Contractions: none Decelerations: none Recommendation: Follow up as clinically indicated. AMAURY Patterson * Phil Umana MD - 02/25/2021 6:57 AM CDT Non-Stress Test [facility] Patient Name: Oneida Luis LMP: Patient's last menstrual period was 06/15/2020. Indications: PPROM NST date: 02/24-06/2021 NST duration: >20 mins ([id number]) Interpretation: Baseline: 120 beats/minute mod variability Reactive Contractions: irregular Decelerations: none Impression and Plan: FWB reassuring, continue monitoring as scheduled. Phil Umana MD 02/25/2021 6:57 AM Associated attestation - Fabrice Solis MD - 02/25/2021 9:46 AM CDT U AUDIENCE DEVELOPMENT MANAGER Attending: I have reviewed the images and agree with the interpretation for the attached procedure. Fabrice Solis MD * Phil Umana MD - 02/24/2021 7:59 AM CDT Non-Stress Test [facility] Patient Name: Oneida Luis LMP: Patient's last menstrual period was 06/15/2020. Indications: PPROM NST date: 9390-1640 NST duration: >20 mins Interpretation: Baseline: 120 beats/minute mod variability Reactive Contractions: irregular Decelerations: one late appearing deceleration at 0550 Impression and Plan: FWB reassuring, continue monitoring as scheduled. Phil Umana MD 02/24/2021 7:59 AM Associated attestation - Fabrice Solis MD - 02/24/2021 10:26 AM CDT U AUDIENCE DEVELOPMENT MANAGER Attending: I have reviewed the images and agree with the interpretation for the attached procedure. Fabrice Solis MD documented in this encounter Consult Notes * Denise Rodriguez MSW - 03/05/2021 10:17 AM CDTAssociated Order(s): IP CONSULT TO LINE LEAD SOCIAL SERVICE CONSULT - BRIEF Reason for Referral: Discharge planning for OB concerns CONSULT COMMENT: +UDS MJ Assessment/Interventions/Plan: plant production workerDenise, received consult. SW received consult and [...] please provide. Pt is an [place] resident. [place] does not accept referrals for +MJ screens alone. Infant to discharge home with mother when medically stable for discharge. SW to follow for infant cord tissue results. MAXWELL Armstrong [phone] PRN Special Needs Child Caregiver * Gemma Law RN - 03/01/2021 10:02 [...] can dwell up to 30 days per vice president of human resources's recommendation. Change dressing prn or at least weekly. * Denise Rodriguez MSW - 02/25/2021 4:01 PM CDTAssociated Order(s): IP CONSULT TO LINE LEAD SOCIAL SERVICE CONSULT - BRIEF Reason for Referral: Pt would like help preparing for baby at home Assessment/Interventions/Plan: plant production workerDenise, received consult and will follow up [...] be in her hospital room. MAXWELL Armstrong [phone] PRN Special Needs Child Caregiver * Sabrina Hernandez MD - 02/23/2021 9:26 [...] 32w6d prematurity with mother at bedside including: NAVAL ARCHITECT/development - Discussed effects on feeding ability, poor [...] support.Discussed possible need for infant transfer to [facility] early in life. General Morbidity and Mortality - Reviewed survival data for infants of comparable gestational age and birthweight. Impression: 25 year old y/o woman at 32w6d EGA gestation with threatened PTL due to PPROM. Discussed risks of prematurity: intubation/respiratory support, infection, need for central lines, prolonged NICU stay, feeding support, transfer to [facility], morbidity and mortality. Patient expresses understanding. All [...] collect/label syringes. Ordered a breast pump from [employer] per [facility] Insurance- Medicaid. Mom states she tried [...] - 15.6 gm/dL 03/05/2021 8:29 AM CDT [facility] Hematocrit 34.4(L) 35.9 - 45.5 % 03/05/2021 8:29 AM CDT [facility] Blood BLOOD SPECIMEN / Unknown Lab Venipuncture / Unknown 03/05/2021 7:14 AM CDT 03/05/2021 8:22 AM CDT Fabrice Solis MD LAB - HEMATOLOGY ORD ERABLES [facility] [address] [place] [address] * PATHOLOGY TISSUE EXAM (STL) (03/04/2021 11:16 PM CDT) Case Report Surgical Pathology Report ? Case: [id number] ? Authorizing Provider: ??Chelsie Astorga MD ?Collected: ? 03/04/2021 11:16 PM ? Ordering Location: ? [facility] 5 LDR ? Received: ?03/05/2021 08:34 AM ? Pathologist: ? Carline Sorto MD ? Specimen: ?Placenta 3rd Trimester ? 03/08/2021 11:28 AM [facility] Final Diagnosis Placenta, vaginal delivery - Small, hypermature placenta (weight <10th percentile for gestational age) - membranes with no histopathologic abnormality - Three-vessel umbilical cord with no histopathologic abnormality 03/08/2021 11:28 AM [facility] Clinical History The patient is a 25-year-old woman at 34 weeks, 0 days gestation, with premature rupture of membranes 02/13. Procedure/findings: vaginal delivery, baby to NICU. 03/08/2021 11:28 AM [facility] Gross Description The requisition and [...] red-morales, spongy cut surfaces with no lesions. Electronic Assembler Group Leader sections submitted as follows: A1-umbilical cord and membrane roll, A2-placental disc central, A3-placental disc peripheral. LJ 03/08/2021 11:28 AM [facility] Microscopic Description Microscopic examination substantiates the above diagnosis. 03/08/2021 11:28 AM [facility] Disclaimer All histochemical and/or immunohistochemical results are interpreted with controls that demonstrate appropriate staining reactions before reporting results. Note on use of immunocytochemistry reagents: This test was developed and its performance characteristic determined by [facility], Department of Laboratory Medicine. It [...] interpreted with caution. 03/08/2021 11:28 AM CDT [facility] Embedded Images 03/08/2021 11:28 AM CDT [facility] Pathology/Cytolo gy ENTIRE PLACENTA / Unknown Collection / Unknown 03/04/2021 11:16 PM CDT 03/05/2021 8:34 AM CDT Chelsie Astorga MD LAB - PATHOLOGY /CYTOLOGY ORDERABLES [facility] [address] [place] [address] * (ABNORMAL) BLOOD GASES CORD ARTERIAL (03/04/2021 10:52 PM CDT) pH Cord Arterial 7.30 7.20 - 7.34 pH 03/04/2021 11:04 PM CDT [facility] pCO2 Cord Arterial 62(H) 45 - 55 mm hg 03/04/2021 11:04 PM CDT [facility] Comment:H pO2 Cord Arterial 16 12 - 25 mm hg 03/04/2021 11:04 PM CDT [facility] HCO3 Cord Arterial 29.7(H) 22.0 - 24.0 mmol/L 03/04/2021 11:04 PM CDT [facility] Comment:H BE Cord Arterial 1.4 mmol/L 03/04/2021 11:04 PM CDT [facility] O2 Saturation Cord Arterial 18 % 03/04/2021 11:04 PM CDT [facility] Geronimo's Test N/A 03/04/2021 11:04 PM CDT [facility] Sample Site Other 03/04/2021 11:04 PM CDT [facility] Sample Type Cord blood Arterial 03/04/2021 11:04 PM CDT [facility] [employer] Operations Manager ID [id number] 03/04/2021 11:04 PM CDT [facility] Blood, arterial CORD BLOOD SPECIMEN / Unknown 03/04/2021 10:52 PM CDT 03/04/2021 10:52 PM CDT Chelsie Astorga MD LAB - BLOOD GAS ES ORDERABLES Performing Organization Address City/[facility]/ZIP Co de Phone Number [facility] [address] [phone] * (ABNORMAL) BLOOD GASES CORD NANCY (03/04/2021 [...] 03/04/2021 11:05 PM CDT [facility] THERAP[facility] Airborne Operations Manager ID [id number] 03/04/2021 11:05 PM CDT [facility] Blood CORD BLOOD SPECIMEN / Unknown 03/04/2021 10:52 PM CDT 03/04/2021 10:52 PM CDT Chelsie Astorga MD LAB - BLOOD GAS ES ORDERABLES Performing Organization Address City/[facility] Co de Phone Number [facility] [address] [place] [address] * (ABNORMAL) CBC W AUTO DIFFERENTIAL (03/04/2021 7:33 AM CDT) WBC 11.6(H) 4.4 - 10.7 x10E9/L 03/04/2021 7:45 AM CDT [facility] WBC Corrected 03/04/2021 7:45 AM CDT [facility] RBC 3.75(L) 3.80 - 5.20 x10E12/L 03/04/2021 7:45 AM CDT [facility] Hemoglobin 10.7(L) 12.0 - 15.6 gm/dL 03/04/2021 7:45 AM CDT [facility] Hematocrit 32.4(L) 35.9 - 45.5 % 03/04/2021 7:45 AM CDT [facility] MCV 86.4 80.7 - 98.3 fl 03/04/2021 7:45 AM CDT [facility] MCH 28.5 26.7 - 34.0 pg 03/04/2021 7:45 AM CDT [facility] MCHC 33.0 30.8 - 35.9 gm/dL 03/04/2021 7:45 AM CDT [facility] Platelet Count 251 153 - 416 x10E9/L 03/04/2021 7:45 AM CDT [facility] RDW-CV 15.8(H) 12.1 - 14.9 % 03/04/2021 7:45 AM CDT [facility] MPV 9.6 9.4 - 12.9 fl 03/04/2021 7:45 AM CDT [facility] Neutrophils % 64.1 44.0 - 73.0 % 03/04/2021 7:45 AM CDT [facility] Lymphocytes % 22.9 20.0 - 43.0 % 03/04/2021 7:45 AM CDT [facility] Monocytes % 9.7 5.0 - 13.0 % 03/04/2021 7:45 AM CDT [facility] Eosinophils % 2.1 0.0 - 6.0 % 03/04/2021 7:45 AM CDT [facility] Basophils % 0.3 0.0 - 2.0 % 03/04/2021 7:45 AM CDT [facility] Immature Granulocytes 0.9 0 - 1 % 03/04/2021 7:45 AM CDT [facility] Neutrophil Absolute 7.45(H) 2.01 - 7.14 x10E9/L 03/04/2021 7:45 AM CDT [facility] Lymphocytes Absolute 2.67 1.07 - 3.94 x10E9/L 03/04/2021 7:45 AM CDT [facility] Monocytes Absolute 1.13(H) 0.26 - 1.07 x10E9/L 03/04/2021 7:45 AM CDT [facility] Eosinophils Absolute 0.24 0 - 0.47 x10E9/L 03/04/2021 7:45 AM CDT [facility] Basophils Absolute 0.04 0 - 0.08 x10E9/L 03/04/2021 7:45 AM CDT [facility] Immature Granulocytes Absolute 0.11(H) 0.00 - 0.06 x10E9/L 03/04/2021 7:45 AM CDT [facility] nRBC Auto 0 /100 WBC 03/04/2021 7:45 AM CDT [facility] Blood BLOOD SPECIMEN / Unknown Venipuncture / Unknown 03/04/2021 7:33 AM CDT 03/04/2021 7:38 AM CDT Fabrice Solis MD LAB - HEMATOLOGY ORD ERABLES Performing Organization Address City/[facility]/ZIP Co de Phone Number [facility] [address] [place] [address] * TYPE + SCREEN PANEL (03/04/2021 7:33 AM CDT) ABO Rh B POS 03/04/2021 8:20 AM CDT [facility] Comment:History checked. Antibody Screen NEG 8:20 AM CDT [facility] Blood Bank BLOOD SPECIMEN / Unknown Venipuncture / Unknown 03/04/2021 7:33 AM CDT 03/04/2021 7:38 AM CDT Fabrice Solis MD LAB - BLOOD BANK ORD ERABLES [facility] [address] [place] [address] * NON-STRESS TEST (03/03/2021 11:32 PM CDT) [...] INFORMATION Marion Blue RN Fabrice Solis MD [facility] ORDERABLES * NON-STRESS TEST (03/03/2021 6:15 [...] INFORMATION Grisel Pereira RN Fabrice Solis MD [facility] ORDERABLES * NON-STRESS TEST (03/03/2021 11:51 [...] INFORMATION Grisel Pereira RN Fabrice Solis MD [facility] ORDERABLES * NON-STRESS TEST (03/03/2021 12:42 [...] INFORMATION Marion Blue RN Fabrice Solis MD [facility] ORDERABLES * NON-STRESS TEST (03/01/2021 11:52 [...] 130 bpm, moderate variability, reactive, no decelerations [place]: irritable, no contractions A/P: well-being reassuring, continue testing as ordered or as otherwise indicated Buffy Collado MD 03/02/2021 7:45 AM Fabrice Solis MD [facility] ORDERABLES * NON-STRESS TEST (02/28/2021 6:00 [...] None Mahsa Sawant RN Fabrice Solis MD [facility] ORDERABLES * NON-STRESS TEST (02/27/2021 11:26 [...] OTHER INFORMATION Tami Cano RN Non-Stress Test [facility] Patient Name: Oneida Luis LMP: Patient's [...] Interventions: None Mahsa Sawant RN Non-Stress Test [facility] Patient Name: Oneida Luis LMP: Patient's last menstrual period was 06/15/2020. Indications: PPROM NST date: 02/27/2021 NST duration: >20 mins Interpretation: Baseline: ??150 beats/minute moderate variability Reactive Contractions: ??none Decelerations: ??none Impression and Plan: FWB reassuring, continue monitoring as scheduled. Luisana Ye MD 02/28/2021 8:52 AM Fabrice Solis MD [facility] ORDERABLES * NON-STRESS TEST (02/27/2021 6:42 [...] Interventions: None Mahsa Sawant RN Non-Stress Test [facility] Patient Name: Oneida Luis LMP: Patient's last menstrual period was 06/15/2020. Indications: PPROM NST date: 02/27/2021 NST duration: >20 mins Interpretation: Baseline: ??145 beats/minute moderate variability Reactive Contractions: ??none Decelerations: one shallow variable Impression and Plan: FWB reassuring, continue monitoring as scheduled. Luisana Ye MD 02/28/2021 8:51 AM Fabrice Solis MD [facility] ORDERABLES * (ABNORMAL) IRON + TRANSFERRIN PANEL (02/26/2021 3:14 PM CDT) Pathologist [facility] Iron 43(L) 50 - 170 ug/dL 02/26/2021 3:44 PM CDT [facility] Comment:Attention clinician: Reference Range change. Transferrin 399(H) 180 - 382 mg/dL 02/26/2021 3:44 PM CDT [facility] Comment:Attention clinician: Reference Range change. TIBC Calculated 499(H) 240 - 450 ug/dL 02/26/2021 3:44 PM CDT [facility] Iron Saturation % 9(L) 20 - 50 % 02/26/2021 3:44 PM CDT [facility] Blood BLOOD SPECIMEN / Unknown Venipuncture / Unknown 02/26/2021 3:14 PM CDT 02/26/2021 3:25 PM CDT Hali Tomas APRN-EMERGENCY PLANNING AND RESPONSE MANAGER LAB - ROTARY CUTTER FEEDER RY ORDERABLES [facility] [address] [place] [address] * FERRITIN (02/26/2021 3:14 PM CDT) [facility] Ferritin 7 5 - 204 ng/mL 02/26/2021 4:12 PM CDT [facility] Blood BLOOD SPECIMEN / Unknown Venipuncture / Unknown 02/26/2021 3:14 PM CDT 02/26/2021 3:25 PM CDT Hali Tomas TOSHIA-EMERGENCY PLANNING AND RESPONSE MANAGER LAB - ROTARY CUTTER FEEDER RY ORDERABLES Performing Organization Address [facility] Co de Phone Number [facility] [address] [place] [address] * TYPE + SCREEN PANEL (02/26/2021 3:14 PM CDT) Pathologist [facility] ABO Rh B POS 02/26/2021 4:55 PM CDT [facility] Comment:History checked. Antibody Screen NEG 4:55 PM CDT [facility] Blood Bank BLOOD SPECIMEN / Unknown Venipuncture / Unknown 02/26/2021 3:14 PM CDT 02/26/2021 3:25 PM CDT Hali Tomas TOSHIA-EMERGENCY PLANNING AND RESPONSE MANAGER LAB - BLOOD B ANK ORDERABLES Performing Organization Address [facility] de Phone Number [facility] [address] [place] [address] * (ABNORMAL) CBC W AUTO DIFFERENTIAL (02/26/2021 3:14 PM CDT) Pathologist [facility] WBC 10.1 4.4 - 10.7 x10E9/L 02/26/2021 3:32 PM CDT [facility] WBC Corrected 02/26/2021 3:32 PM CDT [facility] RBC 3.96 3.80 - 5.20 x10E12/L 02/26/2021 3:32 PM CDT [facility] Hemoglobin 11.3(L) 12.0 - 15.6 gm/dL 02/26/2021 3:32 PM CDT [facility] Hematocrit 34.9(L) 35.9 - 45.5 % 02/26/2021 3:32 PM CDT [facility] MCV 88.1 80.7 - 98.3 fl 02/26/2021 3:32 PM CDT [facility] MCH 28.5 26.7 - 34.0 pg 02/26/2021 3:32 PM CDT [facility] MCHC 32.4 30.8 - 35.9 gm/dL 02/26/2021 3:32 PM CDT [facility] Platelet Count 271 153 - 416 x10E9/L 02/26/2021 3:32 PM CDT [facility] RDW-CV 15.7(H) 12.1 - 14.9 % 02/26/2021 3:32 PM CDT [facility] MPV 9.7 9.4 - 12.9 fl 02/26/2021 3:32 PM CDT [facility] Neutrophils % 64.7 44.0 - 73.0 % 02/26/2021 3:32 PM CDT [facility] Lymphocytes % 23.4 20.0 - 43.0 % 02/26/2021 3:32 PM CDT [facility] Monocytes % 10.0 5.0 - 13.0 % 02/26/2021 3:32 PM CDT [facility] Eosinophils % 0.9 0.0 - 6.0 % 02/26/2021 3:32 PM CDT [facility] Basophils % 0.1 0.0 - 2.0 % 02/26/2021 3:32 PM CDT [facility] Immature Granulocytes 0.9 0 - 1 % 02/26/2021 3:32 PM CDT [facility] Neutrophil Absolute 6.57 2.01 - 7.14 x10E9/L 02/26/2021 3:32 PM CDT [facility] Lymphocytes Absolute 2.37 1.07 - 3.94 x10E9/L 02/26/2021 3:32 PM CDT [facility] Monocytes Absolute 1.01 0.26 - 1.07 x10E9/L 02/26/2021 3:32 PM CDT [facility] Eosinophils Absolute 0.09 0 - 0.47 x10E9/L 02/26/2021 3:32 PM CDT [facility] Basophils Absolute 0.01 0 - 0.08 x10E9/L 02/26/2021 3:32 PM CDT [facility] Immature Granulocytes Absolute 0.09(H) 0.00 - 0.06 x10E9/L 02/26/2021 3:32 PM CDT [facility] nRBC Auto 0 /100 WBC 02/26/2021 3:32 PM CDT [facility] Blood BLOOD SPECIMEN / Unknown Venipuncture / Unknown 02/26/2021 3:14 PM CDT 02/26/2021 3:25 PM CDT Hali Tomas DOCK OR PIER LABORER-EMERGENCY PLANNING AND RESPONSE MANAGER LAB - HEMATOL OGY ORDERABLES Performing Organization Address [facility]/State/[facility] Co de Phone Number [facility] [address] [place] [address] * SONOGRAM - COMPLETE (02/24/2021 9:45 AM CDT) Anatomical Region Laterality Modality Other 02/24/2021 9:45 AM CDT Narrative 02/24/2021 11:55 AM CDT ?[facility] [place] [facility] ?PHONE: ??FAX: Pat. Name: ?ONEIDA LUIS. No: ?[id number] Study Date: ?? 02/24/2021 ??9:45am , Age: ? 1995, 25 Pregnancies: ?? 5, Para 3, Ab 1 Height: ? 65 in Weight: ? 166 lb LMP: ?Unknown GA by Base: ?? 32w6d ?? SRINIVASA: 04/15/2021 GA by US: ? 33w1d ?? SRINIVASA: 04/13/2021 GA Selected: ??32w6d (From [facility]) SRINIVASA: ?04/15/2021 Referring MD: Junie Brizuela MD Swatch Cutter: ??April Hernandez, RDMS, RDCS CPT4: ? 06994 BMI: ?27.62 Room: ? 540 Hist/Ind: ? Unknown LMP ?Hx ?EIF ?PPROM MEASUREMENTS & AGE ? GROWTH EVALUATION Measurement ??GA ? Range ? Srce %for GA Ratios ----- ---- ------- BPD ??8.4 cm 33w6d (14i5q-59x6a) Hadl BPD 71% FL/BPD 0.71 (0.71 - 0.87* HC ??30.7 cm 34w1d (32q0s-18l1h) Hadl HC ??49% FL/AC ??0.20 (0.20 - 0.24) AC ??29.7 cm 33w5d (50q8b-37v6p) Hadl AC ??74% HC/AC ??1.03 (0.95 - 1.14) FL ?? 6.0 cm 31w0d (10s7g-11r8l) Hadl FL ??5% CI ? 0.77 (0.70 - 0.86) HL ?? 5.2 cm 30w1d (32k2y-31z1x) Cyril HL ??6% GA for sonogram 33w1d (42g1z-08l1c) ?? Weight Estimate: based on (BPD,HC,AC,FL) Avg [...] ?<Electronic Signature> ??02/24/2021 11:55am Fabrice Solis MD [facility] ORDERABLES * (ABNORMAL) MAGNESIUM BLOOD (02/24/2021 1:45 AM CDT) [facility] Magnesium 6.0(HH) 1.6 - 2.6 mg/dL 02/24/2021 2:30 AM CDT [facility] Blood BLOOD SPECIMEN / Unknown Lab Venipuncture / Unknown 02/24/2021 1:45 AM CDT 02/24/2021 1:59 AM CDT Fabrice Solis MD LAB - CHEMISTRY YIMI MACIAS [facility] [address] [phone] * (ABNORMAL) FIBRINOGEN ACTIVITY (02/24/2021 1:45 AM CDT) Fibrinogen 418(H) 200 - 400 mg/dL 02/24/2021 2:13 AM CDT [facility] Blood BLOOD SPECIMEN / Unknown Lab Venipuncture / Unknown 02/24/2021 1:45 AM CDT 02/24/2021 1:59 AM CDT Fabrice Solis MD LAB - COAGULATION OR DERABLES Performing Organization Address [facility] de Phone Number [facility] [address] [place] [phone] * PTT (02/24/2021 1:45 AM CDT) Pathologist [facility] PTT 23.9 23.0 - 38.4 sec 02/24/2021 2:12 AM CDT [facility] Blood BLOOD SPECIMEN / Unknown Lab Venipuncture / Unknown 02/24/2021 1:45 AM CDT 02/24/2021 1:59 AM CDT Narrative [facility] - 02/24/2021 2:12 AM CDT Heparin Therapeutic Range for PTT: ??71.0 - 109.0 seconds. Fabrice Solis MD LAB - COAGULATION OR DERABLES Performing Organization Address [facility] de Phone Number [facility] [address] [place] [phone] * PT-INR (02/24/2021 1:45 AM CDT) Pathologist [facility] PT 13.3 12.1 - 14.8 sec 02/24/2021 2:11 AM CDT [facility] INR 1.0 0.9 - 1.1 02/24/2021 2:11 AM CDT [facility] Blood BLOOD SPECIMEN / Unknown Lab Venipuncture / Unknown 02/24/2021 1:45 AM CDT 02/24/2021 1:59 AM CDT Narrative [facility] - 02/24/2021 2:11 AM CDT Conventional Warfarin Anticoagulant Therapy: INR Reference Range: ??2.0-3.0 Intensive Warfarin Anticoagulant Therapy: INR Reference Range: ? 2.5-3.5 Fabrice Solis MD LAB - COAGULATION OR DERABLES Performing Organization Address City/State/[facility] Co de Phone Number [facility] [address] [place], [place] [phone] * (ABNORMAL) CBC W AUTO DIFFERENTIAL (02/24/2021 1:45 AM CDT) WBC 10.5 4.4 - 10.7 x10E9/L 02/24/2021 2:04 AM CDT [facility] WBC Corrected 02/24/2021 2:04 AM CDT [facility] RBC 3.65(L) 3.80 - 5.20 x10E12/L 02/24/2021 2:04 AM CDT [facility] Hemoglobin 10.3(L) 12.0 - 15.6 gm/dL 02/24/2021 2:04 AM CDT [facility] Hematocrit 31.6(L) 35.9 - 45.5 % 02/24/2021 2:04 AM CDT [facility] MCV 86.6 80.7 - 98.3 fl 02/24/2021 2:04 AM CDT [facility] MCH 28.2 26.7 - 34.0 pg 02/24/2021 2:04 AM CDT [facility] MCHC 32.6 30.8 - 35.9 gm/dL 02/24/2021 2:04 AM CDT [facility] Platelet Count 246 153 - 416 x10E9/L 02/24/2021 2:04 AM CDT [facility] RDW-CV 15.0(H) 12.1 - 14.9 % 02/24/2021 2:04 AM CDT [facility] MPV 9.7 9.4 - 12.9 fl 02/24/2021 2:04 AM CDT [facility] Neutrophils % 86.9(H) 44.0 - 73.0 % 02/24/2021 2:04 AM CDT [facility] Lymphocytes % 10.6(L) 20.0 - 43.0 % 02/24/2021 2:04 AM CDT [facility] Monocytes % 1.9(L) 5.0 - 13.0 % 02/24/2021 2:04 AM CDT [facility] Eosinophils % 0.0 0.0 - 6.0 % 02/24/2021 2:04 AM CDT [facility] Basophils % 0.0 0.0 - 2.0 % 02/24/2021 2:04 AM CDT [facility] Immature Granulocytes 0.6 0 - 1 % 02/24/2021 2:04 AM CDT [facility] Neutrophil Absolute 9.14(H) 2.01 - 7.14 x10E9/L 02/24/2021 2:04 AM CDT [facility] Lymphocytes Absolute 1.12 1.07 - 3.94 x10E9/L 02/24/2021 2:04 AM CDT [facility] Monocytes Absolute 0.20(L) 0.26 - 1.07 x10E9/L 02/24/2021 2:04 AM CDT [facility] Eosinophils Absolute 0.00 0 - 0.47 x10E9/L 02/24/2021 2:04 AM CDT [facility] Basophils Absolute 0.00 0 - 0.08 x10E9/L 02/24/2021 2:04 AM CDT [facility] Immature Granulocytes Absolute 0.06 0.00 - 0.06 x10E9/L 02/24/2021 2:04 AM CDT [facility] nRBC Auto 0 /100 WBC 02/24/2021 2:04 AM CDT [facility] Blood BLOOD SPECIMEN / Unknown Lab Venipuncture / Unknown 02/24/2021 1:45 AM CDT 02/24/2021 1:59 AM CDT Fabrice Solis MD LAB - HEMATOLOGY ORD ERABLES [facility] [address] [place] [address] * (ABNORMAL) DRUG SCREEN TOX URINE PANEL (02/23/2021 6:23 PM CDT) [facility] Amphetamines Screen Urine Not detected Not detected 02/23/2021 7:09 PM CDT [facility] Barbiturates Screen Urine Not detected Not detected 02/23/2021 7:09 PM CDT [facility] Benzodiazepines Screen Urine Not detected Not detected 02/23/2021 7:09 PM CDT [facility] Cannabinoids Screen Urine Detected(A) Not detected 02/23/2021 7:09 PM CDT [facility] Cocaine Screen Urine Not detected Not detected 02/23/2021 7:09 PM CDT [facility] Fentanyl Urine Not detected Not detected 02/23/2021 7:09 PM CDT [facility] Methadone Screen Urine Not detected Not detected 02/23/2021 7:09 PM CDT [facility] Opiate Screen Urine Not detected Not detected 02/23/2021 7:09 PM CDT [facility] Phencyclidine Screen Urine Not detected Not detected 02/23/2021 7:09 PM CDT [facility] Urine URINE / Unknown Collection / Unknown 02/23/2021 6:23 PM CDT 02/23/2021 6:[address] [facility] - 02/23/2021 7:09 PM CDT [...] MD LAB - URINE CHEMISTR Y ORDERABLES [facility] [address] [place], [place] [id number] * TRICHOMONAS RAPID TEST (02/23/2021 6:22 PM CDT) Trichomonas Rapid Test Negative Negative 02/23/2021 7:05 PM CDT [facility] Microbiology VAGINAL SWAB / Unknown Collection / Unknown 02/23/2021 6:22 PM CDT 02/23/2021 6:39 PM CDT Fabrice Solis MD LAB - MICROBIOLOGY O RDERABLES Performing Organization Address [facility] Co de Phone Number [facility] [address] [place] [phone] * CHLAMYDIA + GC AMPLIFIED PROBE (STL) (02/23/2021 6:22 PM CDT) Chlamydia Amplified Probe Negative Negative 02/24/2021 5:54 AM CDT [facility] GC Amplified Probe Negative Negative 02/24/2021 5:54 AM CDT [facility] Microbiology PART OF UTERINE CERVIX / Unknown Collection / Unknown 02/23/2021 6:22 PM CDT 02/23/2021 6:39 PM CDT Narrative [facility] - 02/24/2021 5:54 AM CDT Results based on detection/no detection of ribosomal RNA by amplified method. Fabrice Solis MD LAB - MICROBIOLOGY O RDERABLES Performing Organization Address [facility] Co de Phone Number [facility] [address] [phone] * BLOOD TYPE VERIFICATION (02/23/2021 6:21 PM CDT) ABO Rh B POS 02/23/2021 7:0 4 PM CDT [facility] Blood Bank BLOOD SPECIMEN / Unknown Venipuncture / Unknown 02/23/2021 6:21 PM CDT 02/23/2021 6:33 PM CDT Fabrice Solis MD LAB - BLOOD BANK ORD ERABLES Performing Organization Address City/[facility] Co de Phone Number [facility] [address] [place] [id number], [facility] [phone] * CULTURE STREP B (02/23/2021 6:20 PM CDT) Culture Strep B Negative for beta-hemolytic Streptococcus Group B ARTIE 02/27/2021 5:36 AM CDT [facility] Microbiology MISCELLANEOUS SAMPLES / Unknown Collection / Unknown 02/23/2021 6:20 PM CDT 02/23/2021 6:39 PM CDT Fabrice Solis MD LAB - MICROBIOLOGY O RDERABLES Performing Organization Address [facility]/ZIP Co de Phone Number [facility] [address] [phone] * (ABNORMAL) RUPTURE OF MEMBRANES EVAL (02/23/2021 5:35 PM CDT) RUPTURE OF MEMBRANES POSITIVE(A ) NEGATIVE 02/23/2021 5:47 PM CDT [facility] Fluid VAGINAL SWAB / Unknown Collection / Unknown 02/23/2021 5:35 PM CDT 02/23/2021 5:38 PM CDT Narrative [facility] - 02/23/2021 5:47 PM CDT [...] BODY FLUID ORD ERABLES Performing Organization Address City/[facility]/ZIP Co de Phone Number [facility] [address] [place] [address] * (ABNORMAL) CBC W AUTO DIFFERENTIAL (02/23/2021 [...] - 416 x10E9/L 02/23/2021 5:52 PM CDT [facility] RDW-CV 15.3(H) 12.1 - 14.9 % 02/23/2021 5:52 PM CDT [facility] MPV 10.4 9.4 - 12.9 fl 02/23/2021 5:52 PM CDT [facility] Neutrophils % 89.5(H) 44.0 - 73.0 % 02/23/2021 5:52 PM CDT [facility] Lymphocytes % 8.4(L) 20.0 - 43.0 % 02/23/2021 5:52 PM CDT [facility] Monocytes % 1.3(L) 5.0 - 13.0 % 02/23/2021 5:52 PM CDT [facility] Eosinophils % 0.1 0.0 - 6.0 % 02/23/2021 5:52 PM CDT [facility] Basophils % 0.1 0.0 - 2.0 % 02/23/2021 5:52 PM CDT [facility] Immature Granulocytes 0.6 0 - 1 % 02/23/2021 5:52 PM CDT [facility] Neutrophil Absolute 12.02(H) 2.01 - 7.14 x10E9/L 02/23/2021 5:52 PM CDT [facility] Lymphocytes Absolute 1.13 1.07 - 3.94 x10E9/L 02/23/2021 5:52 PM CDT [facility] Monocytes Absolute 0.17(L) 0.26 - 1.07 x10E9/L 02/23/2021 5:52 PM CDT [facility] Eosinophils Absolute 0.02 0 - 0.47 x10E9/L 02/23/2021 5:52 PM CDT [facility] Basophils Absolute 0.02 0 - 0.08 x10E9/L 02/23/2021 5:52 PM CDT [facility] Immature Granulocytes Absolute 0.08(H) 0.00 - 0.06 x10E9/L 02/23/2021 5:52 PM CDT [facility] nRBC Auto 0 /100 WBC 02/23/2021 5:52 PM CDT [facility] Blood BLOOD SPECIMEN / Unknown Lab Venipuncture / Unknown 02/23/2021 4:53 PM CDT 02/23/2021 5:47 PM CDT Fabrice Solis MD LAB - HEMATOLOGY ORD ERABLES [facility] [address] [place] [address] * TYPE + SCREEN PANEL (02/23/2021 4:53 PM CDT) ABO Rh B POS 02/23/2021 6:28 PM CDT [facility] Comment:No history; collect retype. Antibody Screen NEG 6:28 PM CDT [facility] Blood Bank BLOOD SPECIMEN / Unknown Lab Venipuncture / Unknown 02/23/2021 4:53 PM CDT 02/23/2021 5:47 PM CDT Fabrice Solis MD LAB - BLOOD BANK ORD ERABLES [facility] [address] [place] [address], [facility] [phone] documented in this encounter Visit Diagnoses Diagnosis [...] membranes (PPROM) with unknown onset of labor ([facility]) Hx of section Other postprocedural status Herpes [...] ultrasound to assess interval growth of fetus ([facility]) documented in this encounter Administered Medications Inactive [...]
--- OUTSIDE RECORDS SUMMARY | 2024-10-17 11:05 | XMS_ITS | Encounter Summary ---
Author Organization [facility] Address [facility] [facility] [place] [address] Care Team Providers Care Juvenile Court Liaison Name Role Phone Unavailable Primary Care Provider Unavailabl e Reason for Visit * Reason Onset Date Comments Scheduling 03/08/2021 Encounter Details Date Type Department Care Team (Late st Contact Info) Description 03/08/2021 Telephone [facility] MATERNAL/ EVALUATION UNIT [facility] [facility] [place] [address] Katerin Reed Scheduling Social History Tobacco Use [...]
--- OUTSIDE RECORDS SUMMARY | 2024-10-17 11:05 | XMS_ITS | Encounter Summary ---
Author Organization [facility] Address [address] [place] [place] [address] Care Team Providers Care Manager Media Relations Name Role Phone Unavailable Primary Care Provider Unavailabl e Reason for Visit * Reason Comments Ultrasound * Evaluate & Treat (Routine) - Closed Specialty Diagnoses / Procedures Referred By Contac t Referred To Contact Diagnoses Abnormal ultrasonic finding on screening of mother Encounter for screening, unspecified (HCC) Supervision of other high risk pregnancies, unspecified trimester ([facility]) Procedures [place] ULTRASOUND, UTERUS Elisa Krueger MD [address] [address] [facility] [address] [place] [address] Referral ID Status Reason Start Date Expiration Date Visits Re quested Visits Authorized [id number] Closed 10/07/2020 12/07/2020 1 1 Encounter Details Date Type Department Care Team (Latest Contact Info) Description 10/07/2020 12:31 PM AUDIO VISUAL FACILITIES ENGINEER - 10/07/2020 11:59 PM AUDIO VISUAL FACILITIES ENGINEER Hospital Encounter [facility] Maternal & Care [address] [place] [address] Tima Bejarano MD Discharge Disposition: [...] tech were wearing masks TEMPS Pt:97.9 Guest: O VISUAL FACILITIES ENGINEER documented in this encounter Plan of Treatment Not on file documented as of this encounter Procedures Procedure Name Priority Date/Time Associated Diagnosis Comments SONOGRAM - COMPLETE Routine 10/07/2020 1 2:56 PM AUDIO VISUAL FACILITIES ENGINEER Date of last menstrual period (LMP) unknown documented in this encounter Results * SONOGRAM - COMPLETE (10/07/2020 12:56 PM AUDIO VISUAL FACILITIES ENGINEER) Anatomical Region Laterality Modality Other 10/07/2020 12:5 6 PM AUDIO VISUAL FACILITIES ENGINEER Narrative 10/07/2020 11:10 PM AUDIO VISUAL FACILITIES ENGINEER ? - VICENTE Nicole[facility] Maternal Medicine ? [facility] Center ?PHONE: ??FAX: ? Pat. Name: ?HNANAH PYLE. No: ?[id number] Study Date: ?? 10/07/2020 ??12:56pm , Age: ? 1995, 25 Pregnancies: ?? 5, Para 3, Ab 1 Height: ? 65 in Weight: ? 166 lb LMP: ?Unknown GA by US: ? 13w3d ?? SRINIVSAA: 04/11/2021 GA Selected: ??12w6d (From Known E) SRINIVASA: ?04/15/2021 Referring MD: Junie Brizuela MD Lace Roller: ??Bela Villafuerte RDMS CPT4: ? 45980 BMI: ?27.62 Hist/Ind: ? Dating ?Unknown LMP ?Hx MEASUREMENTS & AGE ? GROWTH EVALUATION Measurement ??GA ? Range ? Srce %for GA Ratios ----- ---- ------- CRL ??7.4 cm 13w3d (93u3h-41a9q) Hadl CRL 76% GA for sonogram 13w3d (89i1k-60a5o) based on (CRL) Avg ? Heart Rate: [...] <Electronic Signature> ??10/07/2020 11:11pm Tima Bejarano MD [facility] ORDERABLES documented in this encounter Visit Diagnoses Diagnosis Date of last menstrual period (LMP) unknown- Primary Encounter for screening for uncertain dates (HCC) 12 weeks gestation of (HCC) state, incidental documented in this encounter
--- OUTSIDE RECORDS SUMMARY | 2024-10-17 11:05 | XMS_ITS | Encounter Summary ---
Author Organization [facility] Address [address] [facility] [place] [address] Care Team Providers Care Single Needle Operator Name Role Phone Unavailable Primary Care Provider Unavailabl e Reason for Visit * Reason Onset Date Comments Missed Appointment 12/02/2020 missed 11/30/20 Encounter Details Date Type Department Care Team (Late st Contact Info) Description 12/02/2020 Telephone [facility] Maternal & Care [address] [place] [address] Igor Siegel Missed Appointment (missed 11/30/20) Social [...] for her to call back to reschedule. 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
--- OUTSIDE RECORDS SUMMARY | 2024-10-17 11:05 | XMS_ITS | Encounter Summary ---
Author Organization [facility] Address [facility] [facility] [place] [address] Care Team Providers Care Therapeutic Sales Specialist Name Role Phone Unavailable Primary Care Provider Unavailabl e Reason for Visit * Reason Onset Date Comments Confirmation 10/21/2022 Encounter Details Date Type Department Care Team (Late st Contact Info) Description 10/21/2022 Telephone [facility] Medical Group - Internal Medicine [address] [place] [phone] Ajay Marino MD [address] [place] [address] [phone] Confirmation Social History Tobacco Use Types Packs/Day [...] listed above, where are they calling from? [facility] What is the reason for call? Attempted to reach patient to confirm upcoming appt with Dr. Marino. Appointment cancelled. Expected Response from the Clinic? 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
--- OUTSIDE RECORDS SUMMARY | 2024-10-17 11:05 | XMS_ITS | Encounter Summary ---
Author Organization [facility] Address [address] [facility] [place] [address] Care Team Providers Care Resource Director Name Role Phone Unavailable Primary Care Provider Unavailabl e Reason for Visit * Reason Onset Date Comments Missed Appointment 12/04/2020 missed 11/30/20 appt Encounter Details Date Type Department Care Team (Late st Contact Info) Description 12/04/2020 Telephone [facility] Health Maternal & Care [address] [place] [address] Igor Siegel Missed Appointment (missed 11/30/20 appt) [...] reschedule missed appt on 11/30/20 left 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
--- OUTSIDE RECORDS SUMMARY | 2024-10-17 11:05 | XMS_ITS | Encounter Summary ---
Author Organization [facility] Address [address] [facility] [place] [address] Care Team Providers Care Oil Burner Name Role Phone Unavailable Primary Care Provider Unavailabl e Reason for Visit * Reason Comments Ultrasound Encounter Details Date Type Department Care Team (Latest Contact Info) Description 01/06/2021 10:06 AM GREEN INSPECTOR - 01/06/2021 11:59 PM GREEN INSPECTOR Hospital Encounter [facility] Maternal & Care [address] [place] [address] Tima Bejarano MD Discharge Disposition: Home or [...] - COMPLETE Routine 01/06/2021 1 0:14 AM GREEN INSPECTOR Fifth (HCC) Encounter for ultrasound (HCC) Hx of section documented in this encounter Results * SONOGRAM - COMPLETE (01/06/2021 10:14 AM GREEN INSPECTOR) Anatomical Region Laterality Modality Other 01/06/2021 10:1 4 AM GREEN INSPECTOR Narrative 01/06/2021 11:11 AM GREEN INSPECTOR ? - VICENTE Nicoleh Maternal Medicine ? [facility] Center ?PHONE: ??FAX: ? Pat. Name: ?HANNAH PYLE Pat. No: ?[id number] Study Date: ?? 01/06/2021 ??10:14am , Age: ? 1995, 25 Pregnancies: ?? 5, Para 3, Ab 1 Height: ? 65 in Weight: ? 166 lb LMP: ?Unknown GA by Base: ?? 25w6d ?? SRINIVASA: 04/15/2021 GA by US: ? 25w6d ?? SIRNIVASA: 04/15/2021 GA Selected: ??25w6d (From [facility]) SRINIVASA: ?04/15/2021 Referring MD: Junie Brizuela MD Gas Plant Worker: ??Suha Downey RDMS CPT4: ? 98570 BMI: ?27.62 Hist/Ind: ? Unknown LMP ?Hx MEASUREMENTS & AGE ? GROWTH EVALUATION Measurement ??GA ? Range ? Srce %for GA Ratios ----- ---- ------- BPD ??6.6 cm 26w4d (32w5w-43r6o) Hadl BPD 63% FL/BPD 0.71 (0.71 - 0.87) HC ??24.1 cm 26w1d (34n6v-51c4c) Hadl HC ??35% FL/AC ??0.21 (0.20 - 0.24) AC ??22.6 cm 27w0d (85g2a-29h1g) Hadl AC ??74% HC/AC ??1.07 (1.01 - 1.20) FL ?? 4.7 cm 25w4d (62m4t-43c3u) Hadl FL ??28% CI ? 0.77 (0.70 - 0.86) HL ?? 4.5 cm 26w5d (33n2k-36s6i) Cyril HL ??64% Cere 3.0 cm 26w3d (05c1v-17z2d) Hill Cere64% NB ?? 0.8 cm ? (02c7z-81s0h) Sone NB ??28% GA for sonogram 25w6d (65x3w-85v3q) ?? Weight Estimate: based on (BPD,HC,AC,FL) Hadlock [...] <Electronic Signature> ??01/06/2021 11:10am Tima Bejarano MD [facility] ORDERABLES documented in this encounter Visit Diagnoses Diagnosis Fifth (HCC) state, incidental Encounter for ultrasound ([facility]) Encounter for routine screening for malformation using ultrasonics Hx of section Other postprocedural status Herpes Herpes simplex without mention of complication Encounter for screening for uncertain dates (HCC) 25 weeks gestation of (HCC) state, incidental documented in this encounter
--- OUTSIDE RECORDS SUMMARY | 2024-10-17 11:05 | XMS_ITS | Encounter Summary ---
Author Organization [facility] Address [address] [facility] [place] [address] Care Team Providers Care Eyelet Maker Name Role Phone Unavailable Primary Care Provider Unavailabl e Reason for Visit * Reason Onset Date Comments Results 10/14/2020 Encounter Details Date Type Department Care Team (Late st Contact Info) Description 10/14/2020 Telephone [facility] Maternal & Care [address] [place] [address] Yasmine Schaffer RN Results Social History Tobacco [...] will be sent to patient's primary OB TRICAL TEST TECHNICIAN documented in this encounter Plan of Treatment Not on file documented as of this encounter Visit Diagnoses Diagnosis Fifth (HCC) state, incidental Encounter for ultrasound (HCC) Encounter for routine screening for malformation using ultrasonics Hx of section Other postprocedural status Herpes Herpes simplex without mention of complication documented in this encounter
--- OUTSIDE RECORDS SUMMARY | 2024-10-17 11:06 | XMS_ITS | Clinical Summary ---
Author Organization [facility] [address] Address [address] [place] [address] Phone Care Team Providers Care Machine Feller Name Role Phone No, Physician Primary Care Provider [phone] Margareth Herrera DO Unavailable [phone] Allergies Active Allergy Reactions Criticality Noted Date [...] was counseled on the limitations of our [facility] and that can not guarantee the legal receptionist OB will offer a TOLAC if she [...] often do you attend chur ch or zoroastrianism services? More than 4 times per year 09/01/2023 Do you belong to any clubs o r organizations such as caodaism groups, unions, fraternal or athletic groups, or [...] staff should administer the PHQ-9) 0 09/01/2023 [facility] of Occupat ional Health - Occupational Stress [...] slept in a chcf (including now)? No 09/01/2023 Personal Safety Answer [...] BABY BOY NADIR daily MD Complications:None Delivery Location:[facility] ([facility] 5 R) Last Filed Vital Signs Vital Sign Reading Time Taken Comments Blood Pressure 118/73 09/05/2023 10:07 AM EDUCATION FACULTY MEMBER Pulse 62 09/05/2023 10:07 AM EDUCATION FACULTY MEMBER Temperature 36.2 ??C (97.1 ??F) 09/05/2023 10:[address] Respiratory Rate 18 09/05/2023 10:07 AM EDUCATION FACULTY MEMBER Oxygen Saturation 99% 09/05/2023 10:07 AM EDUCATION FACULTY MEMBER Inhaled Oxygen Concentration - - Weight 75.8 kg (167 lb 1.7 oz) 09/05/2023 6:20 A M EDUCATION FACULTY MEMBER Height 165.1 cm (5' 5 ) 09/05/2023 6:20 AM EDUCATION FACULTY MEMBER Body Mass Index 27.81 09/05/2023 6:20 AM EDUCATION FACULTY MEMBER Plan of Treatment Health Maintenance Due Date [...] C antibody (03/23/2023 11:20 AM CDT) Pathologist [facility] Hep C Ab Nonreactive Nonreactive [facility]AR ARMENDARIZ [...] RAL ORDERABLES Edited Result - Final [facility] [id number] [facility] Department of Laboratories [place] [id number] * Pap with reflex to High Risk HPV (03/23/2023 8:02 AM CDT) Thin prep (Pap test) 03/23/2023 8:02 AM CDT 03/23/2023 8:02 AM CDT Narrative PATHOLOGY CH - 03/28/2023 1:21 PM CDT [facility] Department of Pathology [address] [place], [place] [id number] Final Report Note to Patients: This report [...] the details. Patient Name: ??HANNAH PYLE Address: ??[address] [place] [address], ?? [place], [place] [address] Gender: ??F : ??1995 (Age: 27) Service: ?? Location: ?? Hospital #: ??[id number] Patient Type: ?? SPECIMEN Taken: ??03/23/2023 Received: ??03/23/2023 Accessioned:: ??03/24/2023 Reported: ??03/28/2023 Physician(s): Margareth Herrera D.O. Margareth Herrera D.O. Diagnosis: SOURCE OF SPECIMEN ? Imaged Thinprep Pap Test w/ Reflex HPV - Fingernail Sculptor Cytologic Material: STATEMENT OF ADEQUACY ?- Specimen satisfactory for interpretation; endocervical/transformation zone component absent or ?insufficient ? GENERAL CATEGORIZATION: ?- Negative for intraepithelial lesion or malignancy ? INTERPRETATION: ?- Numerous inflammatory cells present ? DISHA Faulkner(ASCP) Report Electronically Reviewed and Signed Out By ??DISHA Faulkner(ASCP) ??03/28/2023 13:21:27Specimen(s) Received: A: Imaged Thinprep Pap Test w/ Reflex HPV - Fingernail Sculptor Cytologic Material Clinical History: Last Menstrual Period: [...] determined by the Surgical Pathology Department at [facility] as part of an ongoing quality coordinator program and in compliance with federally mandated [...] characteristics determined by the Surgical Pathology Department [facility]. ??It has not been cleared or approved by the U. S. Food and Drug Administration. us Margareth Herrera DO LAB CYTOLOGY ORDERABLES Final Result PATHOLOGY [address] [place] [address] from Last 3 Months or Most Recently Relevant to Health Maintenance [place] Care Teams Machine Feller Relationship Specialty Start Date End Date No, Physician PCP - General 03/09/23 Margareth Herrera DO [address] [place] [address] Consulting Physician Obstetrics and Gynecology 09/05/23
--- OUTSIDE RECORDS SUMMARY | 2024-10-17 11:06 | XMS_ITS | Referral Summary ---
Author Organization [facility] [address] Address [address] [place] [address] Phone Care Team Providers Care Stewardess Supervisor Name Role Phone No, Physician Primary Care Provider [phone] Margareth Herrera DO Unavailable [phone] Allergies Active Allergy Reactions Criticality Noted Date [...] was counseled on the limitations of our [facility] and that can not guarantee the distribution warehouse manager OB will offer a TOLAC if she [...] staff should administer the PHQ-9) 0 09/01/2023 [facility] of Occupat ional Health - Occupational Stress [...] in a alf (including now)? No 09/01/2023 Personal Safety Answer [...] Comments Blood Pressure 118/73 09/05/2023 10:07 AM WEIR FISHER Pulse 62 09/05/2023 10:07 AM WEIR FISHER Temperature 36.2 ??C (97.1 ??F) 09/05/2023 10:[address] Respiratory Rate 18 09/05/2023 10:07 AM WEIR FISHER Oxygen Saturation 99% 09/05/2023 10:07 AM WEIR FISHER Inhaled Oxygen Concentration - - Weight 75.8 kg (167 lb 1.7 oz) 09/05/2023 6:20 A M WEIR FISHER Height 165.1 cm (5' 5 ) 09/05/2023 6:20 AM WEIR FISHER Body Mass Index 27.81 09/05/2023 6:20 AM WEIR FISHER Plan of Treatment Not on file Procedures [...] RAL ORDERABLES Edited Result - Final [facility] [address] [place] [address] * Pap with reflex to High Risk HPV (03/23/2023 8:02 AM CDT) Thin prep (Pap test) 03/23/2023 8:02 AM CDT 03/23/2023 8:02 AM CDT Narrative PATHOLOGY - 03/28/2023 1:21 PM CDT [facility] Department of Pathology [address] [place], [place] [id number] Final Report Note to Patients: This report [...] ??HANNAH PYLE Address: ??[address], ?? [place], [place] [address] Gender: ??F : ??1995 (Age: 27) Service: ?? Location: ?? Hospital #: ??[id number] Patient Type: ?? SPECIMEN Taken: ??03/23/2023 Received: ??03/23/2023 Accessioned:: ??03/24/2023 Reported: ??03/28/2023 Physician(s): Nessa Mcgee D.O. Diagnosis: SOURCE OF SPECIMEN ? Imaged Thinprep Pap Test w/ Reflex HPV - Nursing Home Manager Cytologic Material: STATEMENT OF ADEQUACY ?- Specimen satisfactory for interpretation; endocervical/transformation zone component absent or ?insufficient ? GENERAL CATEGORIZATION: ?- Negative for intraepithelial lesion or malignancy ? INTERPRETATION: ?- Numerous inflammatory cells present ? DISHA Faulkner(ASCP) Report Electronically Reviewed and Signed Out By ??DISHA Faulkner(ASCP) ??03/28/2023 13:21:27Specimen(s) Received: A: Imaged Thinprep Pap Test w/ Reflex HPV - Nursing Home Manager Cytologic Material Clinical History: Last Menstrual [...] the Surgical Pathology Department at [facility] as part of an ongoing quality assurance test program manager program and in compliance with federally mandated [...] characteristics determined by the Surgical Pathology Department [facility]. ??It has not been cleared or approved by the U. S. Food and Drug Administration. Margareth Herrera DO LAB CYTOLOGY ORDERABLES Final Result Performing Organization Address City/State/ZIP Co ut Phone Number PATHOLOGY [address] [place] [address] from Last 3 Months or Most Recently Relevant to Health Maintenance Insurance [employer]ET[employer] BETTER [facility] [employer] [facility] [employer] [facility] Care Teams Stewardess Supervisor Relationship Specialty Start Date End Date No, Physician PCP - General 03/09/23 Margareth Herrera DO [address] [place] [address] Consulting Physician Obstetrics and Gynecology 09/05/23
--- OUTSIDE RECORDS SUMMARY | 2024-10-17 11:07 | XMS_ITS | Encounter Summary ---
Author Organization [facility] Healthcare Address [address] [place] [address] Care Team Providers Care Funeral Director/Embalmer/Owner Name Role Phone No, Physician Primary Care Provider [phone] Encounter Details Date Type Department Care Team (Late st Contact Info) Description 08/29/2023 Telephone [facility] [address] [place] [address] Elena Veliz LPN Social History [...] How often do you attend chur or sabianist services? More than 4 times per year 08/22/2023 Do you belong to any clubs o r organizations such as mandaen groups, unions, fraternal or athletic groups, or [...] staff should administer the PHQ-9) 0 08/22/2023 [facility] of [facility] - Occupational Stress Questionnaire Answer Date [...] slept in a correction (including now)? No 08/22/2023 Comments Yes Sex [...] - 08/29/2023 1:15 PM CDT Normal GBS director operating sent. * Telephone Encounter - Elena Veliz LPN - 08/29/2023 1:15 PM CDT ----- Message from Margareth Herrera DO sent at 08/29/2023 12:42 PM CDT ----- Please inform the patient her GBS was negative. documented in this encounter Plan of Treatment Not on file documented as of this encounter Visit Diagnoses Not on filedocumented in this encounter Care Teams Funeral Director/Embalmer/Owner Relationship Specialty Start Date End Date No, Physician PCP - General 03/09/23 documented as of this encounter
--- OUTSIDE RECORDS SUMMARY | 2024-10-17 11:07 | XMS_ITS | Encounter Summary ---
Author Organization [facility] Healthcare Address [address] [place] [address] Care Team Providers Care Associate Professor Of Art History Name Role Phone No, Physician Primary Care Provider Margareth Herrera DO Unavailable [phone] Reason for Visit * Auth/Cert (Routine) Specialty Diagnoses / Procedures Referred By Lenora t Referred To Contact Diagnoses Request for sterilization Request for sterilization [Z30.2] Procedures TN LIG/TRNSXJ FLP TUBE ABDL/VAG SPX SALPINGECTOMY Referral ID Status Reason Start Date Expiration Date Visits Re quested Visits Authorized [id number] 1 1 Encounter Details Date Type Department Care Team (Late st Contact Info) Description 09/05/2023 6:01 AM INVESTOR RELATIONS DIRECTOR - 09/05/2023 10:43 AM INVESTOR RELATIONS DIRECTOR Hospital Encounter [facility] Operating Room 1 [place] [address] Margareth Herrera DO [address] [place] [address] Request for sterilization Discharge Disposition: Discharge to [...] often do you attend chur ch or religion services? More than 4 times per year [...] staff should administer the PHQ-9) 0 09/01/2023 [facility] - Occupational Stress Questionnaire Answer [...] slept in a custodial (including now)? No 09/01/2023 Personal Safety Answer [...] Comments Blood Pressure 118/73 09/05/2023 10:07 AM INVESTOR RELATIONS DIRECTOR Pulse 62 09/05/2023 10:07 AM INVESTOR RELATIONS DIRECTOR Temperature 36.2 ??C (97.1 ??F) 09/05/2023 10:[address] Respiratory Rate 18 09/05/2023 10:07 AM INVESTOR RELATIONS DIRECTOR Oxygen Saturation 99% 09/05/2023 10:07 AM INVESTOR RELATIONS DIRECTOR Inhaled Oxygen Concentration - - Weight 75.8 kg (167 lb 1.7 oz) 09/05/2023 6:20 A M INVESTOR RELATIONS DIRECTOR Height 165.1 cm (5' 5 ) 09/05/2023 6:20 AM INVESTOR RELATIONS DIRECTOR Body Mass Index 27.81 09/05/2023 6:20 AM INVESTOR RELATIONS DIRECTOR documented in this encounter Discharge Instructions * Attachments The following attachments cannot be sent through Care Everywhere. * General Anesthesia (Discharge Care) (Bhutanese) documented in this encounter Medications at Time [...] She was originally scheduled for induction at [facility] yesterday with a plan for PP BS today but ended up delivering [facility] Monday night. Delivery was uncomplicated. She [...] and even . Margareth Herrera DO 09/05/23 STOR RELATIONS DIRECTOR documented in this encounter Miscellaneous Notes * Perioperative Nursing Note - Sherita Conley RN - 09/05/2023 10:08 AM INVESTOR RELATIONS DIRECTOR Pt ambulatory with no difficulty to the restroom, was able to void prior to discharge, small amountof drainage seen on elena pad. STOR RELATIONS DIRECTOR * Perioperative Nursing Note - Sherita Conley RN - 09/05/2023 9:38 AM INVESTOR RELATIONS DIRECTOR Pt having pain of 05/08, Dr. Herrera made aware, order for percocet placed. STOR RELATIONS DIRECTOR * Op Note - Margareth Herrera DO [...] She was originally scheduled for induction at [facility] yesterday with a plan for PP BS today but ended up delivering at [facility] Monday night. Delivery was uncomplicated. She [...] DO, was present for the entire procedure. STOR RELATIONS DIRECTOR * Pre-Procedure Instructions - Ashli De Dios RN - 09/04/2023 2:19 PM INVESTOR RELATIONS DIRECTOR We are pleased that you and your doctor have chosen [facility] for your surgery. We hope that the [...] morning of surgery Use no make-up, nail indonesian, lotions, oils or powders on your skin. [...] posted at the top of the page. STOR RELATIONS DIRECTOR documented in this encounter Plan of Treatment Not on file documented as of this encounter Procedures Procedure Name Priority Date/Time Associated Diagnosis Comments SURGICAL PATHOLOGY Routine 09/05/2023 9: 49 AM INVESTOR RELATIONS DIRECTOR Request for sterilization SALPINGECTOMY 09/05/2023 7:46 AM INVESTOR RELATIONS DIRECTOR Request for sterilization DIFFERENTIAL AUTO STAT 09/05/2023 6:3 9 AM INVESTOR RELATIONS DIRECTOR CBC WITH AUTO DIFFERENTIAL STAT 09/05/2023 6:39 AM INVESTOR RELATIONS DIRECTOR documented in this encounter Results * Surgical pathology (09/05/2023 9:49 AM INVESTOR RELATIONS DIRECTOR) Tissue (Fallopian tube, sterilization) 09/05/2023 8:03 AM INVESTOR RELATIONS DIRECTOR Narrative PATHOLOGY [facility] ([facility]) - 09/06/2023 10:35 AM INVESTOR RELATIONS DIRECTOR EPIC results best viewed via link to PDF [facility] Department of Pathology [address] [place], [place] [id number] Note to Patients: This report may contain [...] Final Report Patient Name: ??HANNAH PYLE Address: ??[facility] [address], ??[place], [place] ?? Gender: ??F : ??1995 (Age: 28) Service: ??Surgery Location: ??[facility] Hospital #: ??[id number] Patient Type: ??[facility] Accession # ?[id number] Taken: ??09/05/2023 Received: ??09/05/2023 Accessioned: ??09/05/2023 Reported: [...] determined by the Surgical Pathology Department at [facility] as part of an ongoing nurse quality program and in compliance with federally [...] determined by the Surgical Pathology Department [facility]. ??It has not been cleared or approved by the U. S. Food and Drug Administration. Note for decalcified specimens: This assay has not been validated on decalcified tissues. Results should be interpreted with caution given the possibility of false negativity on decalcified specimens Margareth Herrera DO LAB PATHOLOGY ORDERABLE S Final Result [facility]OLOGY [facility] ([facility]) 1 [place] [address] * Differential, auto (09/05/2023 6:39 AM INVESTOR RELATIONS DIRECTOR) Neutrophil abs 4.4 1.7 - 6.5 K/cumm [...] revised on 2018. Blood 09/05/2023 6:39 AM INVESTOR RELATIONS DIRECTOR 09/05/2023 6:43 AM INVESTOR RELATIONS DIRECTOR us Margareth Herrera DO LAB BLOOD ORDERABLES Fi nal Result [facility] ([facility]) 1 [facility] Department [place] [address] * (ABNORMAL) CBC with auto differential (09/05/2023 6:39 AM INVESTOR RELATIONS DIRECTOR) WBC 7.6 3.8 - 9.9 K/cumm CERNER [...] [facility] ([facility]) Blood 09/05/2023 6:39 AM INVESTOR RELATIONS DIRECTOR 09/05/2023 6:43 AM INVESTOR RELATIONS DIRECTOR us Margareth Herrera DO LAB BLOOD ORDERABLES Fi nal Result [facility] ([facility]) 1 [facility] Department [place] [address] documented in this encounter Visit Diagnoses Diagnosis [...] more., Indications: PainIndications:Pain Given 09/05/2023 9:21 AM INVESTOR RELATIONS DIRECTOR 50 mcg Given 09/05/2023 9:09 AM INVESTOR RELATIONS DIRECTOR 50 mcg Lactated Ringer's (LR) infusion 30 mL/hr, intravenous, Continuous, Starting on Mon09/05/23 at 0645, Pre-Op New Bag 09/05/2023 7:46 AM INVESTOR RELATIONS DIRECTOR oxyCODONE-acetaminophen (PERCOCET) 5-325 mg per tablet 1 tablet 1 tablet, oral, Once, On Mon09/05/23 at 1015, For 1 dose, Indications: PainIndications:Pain Given 09/05/2023 9:52 AM INVESTOR RELATIONS DIRECTOR 1 tablet documented in this encounter Discontinued [...] may contain times in both CDT and INVESTOR RELATIONS DIRECTOR. Scheduled Medication Order 09/03/2023 09/04/2023 09/05/2023 ceFAZolin [...] 0838 (Given - Provid er: Hannah Savage, BUSINESS PROCESS REPRESENTATIVE) fentaNYL (SUBLIMAZE) preservative free injection 50 mcg [...] 09/05/2023 documented in this encounter Care Teams Associate Professor Of Art History Relationship Specialty Start Date End Date No, Physician PCP - General 03/09/23 Margareth Herrera DO [address] [place] [address] Consulting Physician Obstetrics and Gynecology 09/05/23 documented as of this encounter
--- OUTSIDE RECORDS SUMMARY | 2024-10-17 11:07 | XMS_ITS | Encounter Summary ---
Author Organization [facility] Healthcare Address [address] [place] [address] Care Team Providers Care Valve Lapper Name Role Phone No, Physician Primary Care Provider [phone] Reason for Visit * Reason Comments Routine Visit Encounter Details Date Type Department Care Team (Late st Contact Info) Description 08/22/2023 10:10 AM CDT Office Visit [facility] [address] [place] [address] Margareth Herrera, DO [address] [place] [address] Encounter for supervision of other normal in [...] any clubs o r organizations such as anabaptist groups, unions, fraternal or athletic groups, or [...] staff should administer the PHQ-9) 0 08/22/2023 [facility] of Occupat ional [facility] - Occupational Stress Questionnaire Answer [...] slept in a penitentiary (including now)? No 08/22/2023 Comments Yes Sex [...] Report: Negative CERNER Comment:Testing performed by : [facility], [address] [facility], [place]., [address] Vaginal/Rectal 08/22/2023 3: 28 PM CDT 08/23/2023 3:22 AM CDT Narrative [facility] ARMENDARIZ - 08/25/2023 9:25 PM CDT Testing performed by [facility] Microbiology Laboratory ([phone]). us Margareth Herrera DO LAB MICROBIOLOGY - GENE RAL ORDERABLES Final Result [facility] [address] Department [place] [address] * (ABNORMAL) POCT urine glucose and protein (08/22/2023 10:03 AM CDT) Glucose, ur, POC Negative Negative MG/DL Protein, ur, POC 1+(A) Negative Lot Number [id number] Urine 08/22/2023 10:0 3 AM CDT us Margareth Herrera DO POINT OF CARE TEST ORDE RABLES Final Result documented in this encounter Visit Diagnoses Diagnosis Encounter for supervision of other normal in third trimester- Primary 36 weeks gestation of Encounter for supervision of other normal in third trimester 36 weeks gestation of documented in this encounter Care Teams Valve Lapper Relationship Specialty Start Date End Date No, Physician PCP - General 03/09/23 documented as of this encounter
--- OUTSIDE RECORDS SUMMARY | 2024-10-17 11:07 | XMS_ITS | Encounter Summary ---
Author Organization [facility] Healthcare Address [address] [place] [address] Care Team Providers Care Wreath Inspector Name Role Phone No, Physician Primary Care Provider [phone] Encounter Details Date Type Department Care Team (Latest Contact Info) Description 08/22/2023 10:04 AM CDT - 08/22/2023 11:59 PM CDT Hospital Encounter [address] [id number] Encounter for supervision of other normal in [...] week 08/22/2023 How often do you attend [facility] or congregational services? More than 4 times per year 08/22/2023 Do you belong to any clubs o r organizations such as evangelical groups, unions, fraternal or athletic groups, or [...] staff should administer the PHQ-9) 0 08/22/2023 [facility] of Occupat ional Health - Occupational Stress [...] slept in a chcf (including now)? No 08/22/2023 Comments Yes Sex [...] Negative OSCAR ARMENDARIZ Comment:Testing performed by : [facility], [address] [place] [address]., [address] Vaginal/Rectal 08/22/2023 3: 28 PM CDT 08/23/2023 3:22 AM CDT Narrative OSCAR ARMENDARIZ - 08/25/2023 9:25 PM CDT Testing performed by [facility] Microbiology Laboratory ([phone]). Margareth Herrera DO LAB MICROBIOLOGY - GENE RAL ORDERABLES Final Result [facility] ARMENDARIZ [address] Department [place] [address] documented in this encounter Visit Diagnoses Diagnosis Encounter for supervision of other normal in third trimester 36 weeks gestation of documented in this encounter Care Teams Wreath Inspector Relationship Specialty Start Date End Date No, Physician PCP - General 03/09/23 documented as of this encounter
--- OUTSIDE RECORDS SUMMARY | 2024-10-17 11:07 | XMS_ITS | Encounter Summary ---
Author Organization [facility] Healthcare Address [address] [place] [address] Care Team Providers Care Department Director Name Role Phone No, Physician Primary Care Provider [phone] Reason for Visit * Reason Comments Contractions Encounter Details Date Type Department Care Team (Late st Contact Info) Description 09/01/2023 2:06 AM CDT - 09/01/2023 4:40 AM CDT Hospital Encounter [facility] 1 [place] [address] Margareth Herrera, DO [address] [place] [address] Discharge Disposition: Discharge to home or self [...] often do you attend chur ch or quaker services? More than 4 times per year 09/01/2023 Do you belong to any clubs o r organizations such as amish groups, unions, fraternal or athletic groups, or [...] 0 09/01/2023 [facility] of Occupat ional [facility] - Occupational Stress Questionnaire Answer Date Recorded [...] in a skilled nursing (including now)? No 09/01/2023 Comments Yes Sex [...] Everywhere. * Early Labor Signs (Discharge Care) (Venezuelan) documented in this encounter Medications at Time [...] with complaints of contractions. Pt just left [facility] L&D, upon arrival SVE is /-2, [...] Final Re sult [facility] ([facility]) 1 [facility] [place] [address] * (ABNORMAL) Urinalysis reflex to microscopic and [...] tendency for uric acid stone formation. Source: [facility] Current Interpretive Data was last revised on [...] DERABLES Final Result [facility] ([facility]) 1 [facility] [place] [address] documented in this encounter Visit Diagnoses Not [...] 09/01/2023 documented in this encounter Care Teams Department Director Relationship Specialty Start Date End Date No, Physician PCP - General 03/09/23 documented as of this encounter
--- OUTSIDE RECORDS SUMMARY | 2024-10-17 11:07 | XMS_ITS | Encounter Summary ---
Author Organization [facility] Healthcare Address [address] [place] [address] Care Team Providers Care Marriage And Family Therapist Name Role Phone No, Physician Primary Care Provider [phone] Reason for Visit * Reason Comments Contractions Encounter Details Date Type Department Care Team (Late st Contact Info) Description 09/02/2023 11:18 AM CDT - 09/02/2023 12:58 PM CDT Hospital Encounter [facility] 1 [place] [address] Margareth Herrera, DO [address] [place] [address] Discharge Disposition: Discharge to home or self [...] often do you attend chur ch or jehovah's witness services? More than 4 times per year 09/01/2023 Do you belong to any clubs o r organizations such as scientology groups, unions, fraternal or athletic groups, or [...] staff should administer the PHQ-9) 0 09/01/2023 [facility] of Occupat ional [facility] - Occupational Stress Questionnaire Answer Date [...] in a detention (including now)? No 09/01/2023 Comments Yes Sex [...] - 09/02/2023 12:53 PM CDT Return to [facility] Monday09/04/23 at 0600 for induction of labor. * Attachments The following attachments cannot be sent through Care Everywhere. * at 35 to 38 Weeks (Discharge Care) ([place] Islander) documented in this encounter Medications at [...] which was unchanged from previous SVE at [place] of /-2. This RN took over pt [...] LAB URINE ORDERABLES Fi nal Result [facility] ([facility]) 1 [facility] Department [place] [address] * (ABNORMAL) Urinalysis reflex to microscopic and [...] tendency for uric acid stone formation. Source: [facility] [employer] Current Interpretive Data was last revised on [...] GENE RAL ORDERABLES Final Result [facility]AC[facility] ([place]) 1 [facility] Department [place] [address] documented in this encounter Visit Diagnoses Not on filedocumented in this encounter Orders Discharge Count Last Ordered Date First Orde red Date DISCHARGE PATIENT 1 09/02/2023 documented in this encounter Care Teams Marriage And Family Therapist Relationship Specialty Start Date End Date No, Physician PCP - General 03/09/23 documented as of this encounter
--- OUTSIDE RECORDS SUMMARY | 2024-10-17 11:07 | XMS_ITS | Encounter Summary ---
Author Organization [facility] Healthcare Address [address] [place] [address] Care Team Providers Care Inside Sales Advisor Name Role Phone No, Physician Primary Care Provider [phone] Margareth Herrerabeth DO Unavailable [phone] Reason for Visit * Auth/Cert (Routine) Specialty Diagnoses / Procedures Referred By Lenora t Referred To Contact Diagnoses Request for sterilization Request for sterilization [Z30.2] Procedures AR LIG/TRNSXJ FLP TUBE ABDL/VAG SPX SALPINGECTOMY Referral ID Status Reason Start Date Expiration Date Visits Re quested Visits Authorized [id number] 1 1 Encounter Details Date Type Department Care Team (Late st Contact Info) Description 09/05/2023 7:47 AM GARNISHER Anesthesia Event [facility] Operating Room 1 [place] [address] [place] [address] [facility] [place] [address] [place] [address] [id number] Anesthesia Record Procedure Summary Procedure Name Responsible [...] Bilateral; Abdomen; 10/01/24 (Retired LDA, Removed/Completed by [facility] with LDA Utility); 1213 (Retired LDA, Removed/Completed by [facility] with LDA Utility) 09/05/23 0828 by [...] How often do you attend chur or nondenominational services? More than 4 times per year 09/01/2023 Do you belong to any clubs o r organizations such as presybeterian groups, unions, fraternal or athletic groups, or [...] staff should administer the PHQ-9) 0 09/01/2023 [facility] of Occupat ional Health - Occupational Stress [...] health care facility (including now)? No 09/01/2023 Personal Safety Answer [...] Procedure Summary Date: 09/05/23 Room / Location: [facility] OR [address] [place] [address] OPERATING ROOM Anesthesia Start: 746 Anesthesia Stop: [...] Nausea/Vomiting status: none No notable events documented. ISHER * Anesthesia Procedure Notes - Larry Parsons CRNA - 09/05/2023 8:00 AM GARNISHER Associated Order(s): Airway Airway Patient location: OR Urgency: elective Indications for airway management: anesthesia Difficult airway: no Staff: Placed by: POLE SHAVER HELPER: Larry Parsons CRNA Emergent airway documentation: Risks [...] with: silk tape Number of attempts: 1 ISHER * Anesthesia Preprocedure Evaluation - Elisa Betancur MD - 09/05/2023 6:59 AM GARNISHER Images from the original note were not included. Anesthesia Evaluation Hannah Luis is a 28 y.o. female Procedure(s): SALPINGECTOMY Pre-Op Diagnosis Codes: * Request for sterilization [Z30.2] HISTORY Past Medical History Information obtained from: patient and chart. Neurological + Psychiatric history - anxiety Pertinent negatives: seizures and CVA/stroke Cardiovascular Pertinent negatives: hypertension ; [place] ; pacemaker/ICD and negative for CHF Respiratory [...] Medication protocol when under care of a POLE SHAVER HELPER Planned anesthesia: General Comments: Low dose prop gtt intra-op for PONV Induction: Induction: intravenous. Postoperative Plan: No postoperative mechanical ventilation intended. Informed Consent: Discussed plan with POLE SHAVER HELPER. Anesthesia plan and risks discussed with patient. Consent and Attending signature: I and/or my designee have discussed the anesthesia plan, benefits, possible alternatives, parental presence at time of induction (if indicated), and clinically relevant risks that may include dental injury, unintentional awareness, and/or other complications. The patient and/or parent/legal guardian understand, and agree to proceed. All questions answered. ISHER ISHER documented in this encounter Plan of Treatment Not on file documented as of this encounter Procedures Procedure Name Priority Date/Time Associated Diagnosis Comments AR AN ELECTIVE ENDOTRACHEAL AIRWAY Routine 09/05/2023 8:00 AM GARNISHER documented in this encounter Results * AR AN ELECTIVE ENDOTRACHEAL AIRWAY (09/05/2023 8:00 AM GARNISHER) Narrative Larry Parsons CRNA - 09/05/2023 8:00 AM GARNISHER Larry Parsons CRNA ? 09/05/2023 ??8:00 AM Airway Patient location: OR Urgency: elective Indications for airway management: anesthesia Difficult airway: no Staff: Placed by: POLE SHAVER HELPER: Larry Parsons CRNA Emergent airway documentation: Risks [...] 0757, Anesthesia Intra-op Given 09/05/2023 7:57 AM GARNISHER 2,000 mg dexAMETHasone (DECADRON) injection solution intravenous, Administer over 2 Minutes, As needed, Starting on Mon09/05/23 at 0755, Anesthesia Intra-op Given 09/05/2023 7:55 AM GARNISHER 10 mg dexmedeTOMIDine in 0.9% sodium chloride (PRECEDEX) 200 mcg/50 mL (4 mcg/mL) infusion (premix) intravenous, As needed, Starting on Mon09/05/23 at 0809, Anesthesia Intra-op Given 09/05/2023 8:17 AM GARNISHER 4 mcg Given 09/05/2023 8:12 AM GARNISHER 4 mcg Given 09/05/2023 8:09 AM GARNISHER 4 mcg diphenhydrAMINE (BENADRYL) 50 mg/mL injection intravenous, Administer over 2 Minutes, As needed, Starting on Mon09/05/23 at 0755, Anesthesia Intra-op Given 09/05/2023 7:55 AM GARNISHER 25 mg esmoloL (BREVIBLOC) injection intravenous, Administer over 1 Minutes, As needed, Starting on Mon09/05/23 at 0751, Anesthesia Intra-op Given 09/05/2023 7:51 AM GARNISHER 50 mg fentaNYL (SUBLIMAZE) preservative free injection intravenous, As needed, Starting on Mon09/05/23 at 0807, Anesthesia Intra-op Given 09/05/2023 8:53 AM GARNISHER 50 mcg Given 09/05/2023 8:07 AM GARNISHER 50 mcg ketamine (KETALAR) 50 mg/5 mL (10 mg/mL) in sodium chloride 0.9% (premix) intravenous, As needed, Starting on Mon09/05/23 at 0802, Anesthesia Intra-op Given 09/05/2023 8:02 AM GARNISHER 30 mg ketorolac (TORADOL) 30 mg/mL (1 mL) injection intravenous, As needed, Starting on Mon09/05/23 at 0755, Anesthesia Intra-op Given 09/05/2023 7:55 AM GARNISHER 30 mg Lactated Ringer's (LR) infusion 30 mL/hr, intravenous, Continuous, Starting on Mon09/05/23 at 0645, Pre-Op New Bag 09/05/2023 7:46 AM GARNISHER lidocaine (XYLOCAINE) 20 mg/mL (2 %) preservative free injection intravenous, As needed, Starting on Mon09/05/23 at 0750, Anesthesia Intra-op Given 09/05/2023 7:50 AM GARNISHER 100 mg midazolam (VERSED) 1 mg/mL preservative free injection intravenous, Administer over 2 Minutes, As needed, Starting on Mon09/05/23 at 0746, Anesthesia Intra-op Given 09/05/2023 7:46 AM GARNISHER 2 mg ondansetron (ZOFRAN) injection intravenous, Administer over 2 Minutes, As needed, Starting on Mon09/05/23 at 0806, Anesthesia Intra-op Given 09/05/2023 8:06 AM GARNISHER 4 mg propofoL (DIPRIVAN) 10 mg/mL IV intravenous, As needed, Starting on Mon09/05/23 at 0751, Anesthesia Intra-op Given 09/05/2023 8:38 AM GARNISHER 20 mg Given 09/05/2023 8:34 AM GARNISHER 20 mg Given 09/05/2023 8:30 AM GARNISHER 20 mg rocuronium (ZEMURON) injection intravenous, As needed, Starting on Mon09/05/23 at 0803, Anesthesia Intra-op Given 09/05/2023 8:03 AM GARNISHER 30 mg succinylcholine (ANECTINE) injection intravenous, As needed, Starting on Mon09/05/23 at 0751, Anesthesia Intra-op Given 09/05/2023 7:51 AM GARNISHER 160 mg sugammadex (BRIDION) 100 mg/mL intravenous solution intravenous, As needed, Starting on Mon09/05/23 at 0841, Anesthesia Intra-op Given 09/05/2023 8:41 AM GARNISHER 200 mg documented in this encounter Care Teams Inside Sales Advisor Relationship Specialty Start Date End Date No, Physician PCP - General 03/09/23 Margareth Herrera DO [address] [place], [place] [address] Consulting Physician Obstetrics and Gynecology 09/05/23 documented as of this encounter
--- OUTSIDE RECORDS SUMMARY | 2024-10-17 11:07 | XMS_ITS | Encounter Summary ---
Author Organization [facility] Healthcare Address [address] [place] [address] Care Team Providers Care Sales Trainer Name Role Phone No, Physician Primary Care Provider [phone] Reason for Visit * Reason Onset Date Comments No show Ret OB appointment 08/31/2023 Encounter Details Date Type Department Care Team (Late st Contact Info) Description 08/31/2023 Telephone [facility] [address] [place] [phone] Margareth Herrera, DO [address] [place] [address] No show Ret OB appointment Social History [...] often do you attend chur ch or yazidi services? More than 4 times per year 09/01/2023 Do you belong to any clubs o r organizations such as uatsdin groups, unions, fraternal or athletic groups, or [...] staff should administer the PHQ-9) 0 09/01/2023 [facility] - Occupational Stress Questionnaire Answer [...] a group home (including now)? No 09/01/2023 Comments Yes Sex [...] on filedocumented in this encounter Care Teams Sales Trainer Relationship Specialty Start Date End Date No, Physician PCP - General 03/09/23 documented as of this encounter
--- OUTSIDE RECORDS SUMMARY | 2024-10-17 11:07 | XMS_ITS | Encounter Summary ---
Author Organization [facility] Healthcare Address [address] [place] [address] Care Team Providers Care Landfill Grader Name Role Phone No, Physician Primary Care Provider [phone] Reason for Visit * Reason Comments Problem Saw Dr. Herrera today, SVE 5cm. Contracted all weekend. Encounter Details Date Type Department Care Team (Late st Contact Info) Description 08/22/2023 12:19 PM CDT - 08/22/2023 2:35 PM CDT Hospital Encounter [facility] [address] [place] [address] Margareth Herrera, DO [address] [address] Discharge Disposition: Discharge to home or self [...] often do you attend chur ch or lutheran services? More than 4 times per year 08/22/2023 Do you belong to any clubs o r organizations such as druze groups, unions, fraternal or athletic groups, or [...] staff should administer the PHQ-9) 0 08/22/2023 [facility] - Occupational Stress Questionnaire Answer [...] slept in a retirement (including now)? No 08/22/2023 Comments Yes Sex [...] Everywhere. * Early Labor Signs (AfterCare(R) Instructions(ER/ED)) (Eritrean) * at 35 to 38 Weeks (Discharge Care) (Eritrean) documented in this encounter Discharge Disposition Disposition [...] by mouth daily Therapy completed 05/15/2023 08/22/2023 [id number]-folic (Kosher Plus Iron) 30 mg iron- 1 mg tablet Take 1 tablet by mouth daily Therapy completed 03/06/2021 08/22/2023 documented as of this encounter Orders Discharge Count Last Ordered Date First Orde red Date DISCHARGE PATIENT 1 08/22/2023 documented in this encounter Care Teams Landfill Grader Relationship Specialty Start Date End Date No, Physician PCP - General 03/09/23 documented as of this encounter
--- OUTSIDE RECORDS SUMMARY | 2024-10-17 11:08 | XMS_ITS | Encounter Summary ---
Author Organization [facility] Healthcare Address [address] [place] [address] Care Team Providers Care Cytogenetic Technician Name Role Phone No, Physician Primary Care Provider Encounter Details Date Type Department Care Team (Late st Contact Info) Description 08/17/2023 Telephone [facility] [address] [employer] [place] [address] Elena Veliz LPN Social History [...] on filedocumented in this encounter Care Teams Cytogenetic Technician Relationship Specialty Start Date End Date No, Physician PCP - General 03/09/23 documented as of this encounter
--- OUTSIDE RECORDS SUMMARY | 2024-10-17 11:08 | XMS_ITS | Encounter Summary ---
Author Organization [facility] Healthcare Address [address] [place] [address] Care Team Providers Care Jerker Name Role Phone No, Physician Primary Care Provider [phone] Reason for Visit * Reason Comments Routine Visit Encounter Details Date Type Department Care Team (Late st Contact Info) Description 08/02/2023 10:20 AM CDT Office Visit [facility] [address] [place] [address] Margareth Herrera, DO [address] [place] [address] Encounter for supervision of other normal in [...] Protein, ur, POC Negative Negative Lot Number [id number] Urine 08/02/2023 10:3 0 AM CDT Margareth Herrera DO POINT OF CARE TEST YIMI MACIAS Final Result documented in this encounter Visit Diagnoses Diagnosis Encounter for supervision of other normal in third trimester- Primary documented in this encounter Care Teams Jerker Relationship Specialty Start Date End Date No, Physician PCP - General 03/09/23 documented as of this encounter
--- OUTSIDE RECORDS SUMMARY | 2024-10-17 11:08 | XMS_ITS | Encounter Summary ---
Author Organization [facility] Address [address] [facility] [address] [place] [address] Care Team Providers Care Reservoir Engineering Advisor Name Role Phone No, Physician Primary Care Provider [phone] Encounter Details Date Type Department Care Team (Late st Contact Info) Description 07/14/2023 Telephone [facility] [address] [place] [address] Margareth Herrera, DO [address] [place] [address] Social History Tobacco Use Types Packs/Day Years [...] let you know that she went to [place] and was checked and that staff at [place] stated she was thinning and dilated to a 1 and just wanted to let you know of this. documented in this encounter Plan of Treatment Not on file documented as of this encounter Visit Diagnoses Not on filedocumented in this encounter Care Teams Reservoir Engineering Advisor Relationship Specialty Start Date End Date No, Physician PCP - General 03/09/23 documented as of this encounter
--- OUTSIDE RECORDS SUMMARY | 2024-10-17 11:08 | XMS_ITS | Encounter Summary ---
Author Organization [facility] Healthcare Address [address] [place] [address] Care Team Providers Care Community Product Specialist Name Role Phone No, Physician Primary Care Provider [phone] Reason for Referral * Diagnostic Imaging (Routine) - Closed Specialty Diagnoses / Procedures Referred By Contjasmyn t Referred To Contact Diagnoses Malposition of fetus, single or unspecified fetus Procedures US Ob Limited Margareth Herrera DO [address] [place] [address] Phone: tel: fax: [facility] Referral ID Status Reason Start Date Expiration Date Visits Re quested Visits Authorized [id number] Closed 08/02/2023 08/31/2024 1 1 Encounter Details Date Type Department Care Team (Late st Contact Info) Description 08/02/2023 Orders Only [facility] [address] [place] [phone] Margareth Herrera DO [address] [place] [address] Malposition of fetus, single or unspecified fetus [...] fetus documented in this encounter Care Teams Community Product Specialist Relationship Specialty Start Date End Date No, Physician PCP - General 03/09/23 documented as of this encounter
--- OUTSIDE RECORDS SUMMARY | 2024-10-17 11:08 | XMS_ITS | Encounter Summary ---
Author Organization [facility] Healthcare Address [address] [place] [address] Care Team Providers Care Outbound Sales Consultant Name Role Phone No, Physician Primary Care Provider [phone] Reason for Visit * Diagnostic Imaging (Routine) - Closed Specialty Diagnoses / Procedures Referred By Contac t Referred To Contact Diagnoses Malposition of fetus, single or unspecified fetus Procedures US Ob Limited Margareth Herrera, DO [address] [place] [address] Phone: tel: fax: [facility] Referral ID Status Reason Start Date Expiration Date Visits Re quested Visits Authorized [id number] Closed 08/02/2023 08/31/2024 1 1 Encounter Details Date Type Department Care Team (Latest Contact Info) Description 08/02/2023 11:40 AM CDT Ancillary Procedure [facility] [address] [place] [id number] Malposition of fetus, single or unspecified fetus [...] place to sleep or slept in a mcc (including now)? No 04/14/2023 Comments Yes Sex [...] fetus documented in this encounter Care Teams Outbound Sales Consultant Relationship Specialty Start Date End Date No, Physician PCP - General 03/09/23 documented as of this encounter
--- OUTSIDE RECORDS SUMMARY | 2024-10-17 11:08 | XMS_ITS | Encounter Summary ---
Author Organization [facility] Address [address] [facility] [address] [place] [address] Care Team Providers Care Circular Knitter Name Role Phone No, Physician Primary Care Provider [phone] Reason for Visit * Reason Comments Routine Visit Encounter Details Date Type Department Care Team (Late st Contact Info) Description 07/17/2023 9:50 AM CDT Office Visit [facility] [address] [place] [phone] Margareth Herrera, DO [address] [address] Encounter for supervision of other normal in [...] AM CDT Pt doing well. Went to [facility] last week for ctx and pelvic pressure [...] ur, POC Negative Negative Comment:n Lot Number [id number] Urine 07/17/2023 9:50 AM CDT us Margareth Herrera DO POINT OF CARE TEST YIMI CLEARYCAL Final Result documented in this encounter Visit Diagnoses Diagnosis Encounter for supervision of other normal in third trimester- Primary Request for sterilization documented in this encounter Care Teams Circular Knitter Relationship Specialty Start Date End Date No, Physician PCP - General 03/09/23 documented as of this encounter
--- OUTSIDE RECORDS SUMMARY | 2024-10-17 11:08 | XMS_ITS | Encounter Summary ---
Author Organization [facility] Healthcare Address [address] [place] [address] Care Team Providers Care Bead Wire Insulator Name Role Phone No, Physician Primary Care Provider [phone] Encounter Details Date Type Department Care Team (Late st Contact Info) Description 08/09/2023 Telephone [facility] [address] [place] [address] Margareth Herrera, DO [address] [place] [address] Social History Tobacco Use Types Packs/Day [...] in her moms garage and went to [facility] and got checked out. Pt states feels fine and next appt is 08/17 does she need tocome in sooner or is 08/17 ok. CBN#[phone] documented in this encounter Plan of Treatment Not on file documented as of this encounter Visit Diagnoses Not on filedocumented in this encounter Care Teams Bead Wire Insulator Relationship Specialty Start Date End Date No, Physician PCP - General 03/09/23 documented as of this encounter
--- OUTSIDE RECORDS SUMMARY | 2024-10-17 11:09 | XMS_ITS | Encounter Summary ---
Author Organization [facility] Address [address] [address] Care Team Providers Care Regulatory Internship Name Role Phone No, Physician Primary Care Provider [phone] Encounter Details Date Type Department Care Team (Late st Contact Info) Description 03/23/2023 12:50 PM CDT Lab [facility] [address] [place] [phone] care, subsequent , second trimester; 15 weeks [...] of documented in this encounter Care Teams Regulatory Internship Relationship Specialty Start Date End Date No, Physician PCP - General 03/09/23 documented as of this encounter
--- OUTSIDE RECORDS SUMMARY | 2024-10-17 11:09 | XMS_ITS | Encounter Summary ---
Author Organization [facility] Address [address] [address] Care Team Providers Care Time Clock Mechanic Name Role Phone No, Physician Primary Care Provider [phone] Reason for Visit * Reason Comments Routine Visit Encounter Details Date Type Department Care Team (Late st Contact Info) Description 05/15/2023 2:40 PM CDT Office Visit [facility] [address] [place] [address] Margareth Rivera, DO [address] [address] care, subsequent , second trimester (Primary Dx) [...] Protein, ur, POC 1+(A) Negative Lot Number [id number] Urine 05/15/2023 2:48 PM CDT Margareth Rivera DO POINT OF CARE TEST ORDE RABCAL Final Result documented in this encounter Visit Diagnoses Diagnosis care, subsequent , second trimester- Primary documented in this encounter Care Teams Time Clock Mechanic Relationship Specialty Start Date End Date No, Physician PCP - General 03/09/23 documented as of this encounter
--- OUTSIDE RECORDS SUMMARY | 2024-10-17 11:09 | XMS_ITS | Encounter Summary ---
Author Organization [facility] Healthcare Address [address] [place] [address] Care Team Providers Care Grinder Tender Name Role Phone No, Physician Primary Care Provider [phone] Encounter Details Date Type Department Care Team (Latest Contact Info) Description 06/16/2023 10:13 AM CDT - 06/16/2023 11:59 PM CDT Hospital Encounter [facility] [address] [place] [address] Encounter for supervision of other normal in [...] mouth daily 30 packet 2 05/15/2023 08/22/2023 [id number],crb-f olic (Kosher Plus Iron) 30 mg iron- [...] ARMENDARIZ Comment:Testing performed by : [facility], [address] [place] [address]., [address] Gardnerella DNA probe Detected(A) Not Detected [facility] ARMENDARIZ Comment:Testing performed by : [facility], [address] [place] [address]., [address] Trichomonas DNA probe Not Detected Not Detected [facility] ARMENDARIZ Comment: Interpretive Data Testing performed by [facility] via Affirm VPIII Microbial Identification Test, [...] on 2020. Testing performed by: [facility], [address] [place] [address]., [address] Vaginal 06/16/2023 4:30 PM CDT 06/17/2023 2:00 PM CDT us Margareth Herrera DO LAB MICROBIOLOGY - GENE RAL ORDERABLES Final Result [facility] ARMENDARIZ [address] [address] Department [place] [address] * Urine culture Urine, clean voided (06/16/2023 3:58 PM CDT) Report Final Report: Growth indicative of contamination with periurethral shekhar. Please submit a new specimen with special attention given to the collection process and to prompt transport to the laboratory. OSCAR Comment:Testing performed by : [facility], [address] [place]., [address] Organism GROWTH INDICATES CONTAM WITH PERIURETHRAL SHEKHAR. [facility] Urine, clean voided 06/16/2023 3:58 PM CDT 06/16/2023 10:43 PM CDT Narrative [facility] - 06/18/2023 11:15 AM CDT Testing performed by [facility] Microbiology Laboratory ([phone]) Hannah Pop MD LAB MICROBIOLOGY - [facility] ORDERABLES Final Result [facility] [address] [address] Department [place] [address] * (ABNORMAL) Differential, auto (06/16/2023 10:41 AM CDT) Neutrophil abs 6.8(H) 1.7 - 6.5 K/cumm [facility] Imm gran abs 0.0 0.0 - 0.1 K/cumm [facility] Lymphocyte abs 1.6 0.8 - 3.3 K/cumm [facility] Monocyte abs 0.5 0.2 - 0.8 K/cumm [facility] Eosinophil abs 0.2 0.0 - 0.5 K/cumm [facility] Basophil abs 0.0 0.0 - 0.1 K/cumm [facility] Neutrophil pct 74.6 % [facility] Comment: Interpretive Data Percent cell count reference ranges are not reported, since discordance with absolute values may lead to misinterpretation of CBC data. Current Interpretive Data was last revised on 2018. Imm gran pct 0.4 % [facility] Comment: Interpretive Data Percent cell count reference ranges are not reported, since discordance with absolute values may lead to misinterpretation of CBC data. Current Interpretive Data was last revised on 2018. Lymphocyte pct 17.2 % [facility] Comment: Interpretive Data Percent cell count [...] BLOOD ORDERABLES Final Result Performing Organization Address City/[facility]/ZIP Co de Phone Number OSC[facility] [address] Department [place] [address] * HIV 1/2 Antibody plus [...] - GE NERAL ORDERABLES Final Result [facility] [address] [address] Department [place] [address] * (ABNORMAL) CBC with auto differential (06/16/2023 10:41 AM CDT) WBC 9.2 3.8 - 9.9 K/cumm [facility] Hgb 11.4(L) 11.9 - 15.5 g/dL [facility] Hct 35.0(L) 35.6 - 45.5 % [facility] Plt 255 150 - 400 K/cumm [facility] MPV 9.9 9.1 - 12.3 fL [facility] RBC 3.77(L) 3.90 - 5.20 M/cumm [facility] MCV 92.8 81.3 - 96.4 fL [facility] MCH 30.2 27.1 - 33.3 pg [facility] MCHC 32.6 32.3 - 35.7 g/dL [facility] RDW CV 12.7 11.1 - 14.9 % [facility] RDW SD 43.6 35.7 - 48.1 fL [facility] NRBC abs 0.00 0.00 - 0.01 K/cumm [facility] Blood 06/16/2023 10:4 1 AM CDT 06/16/2023 6:47 PM CDT Hannah Pop MD LAB BLOOD ORDERABLES Final Result [facility] [address] Department [place] [address] * Glucose tolerance testing 50 gram gestational screen (06/16/2023 10:41 AM CDT) GTT 50g gest screen 137 <=140 mg/dL [facility] Comment: Interpretive Data Used for suspected [...] MD LAB BLOOD ORDERABLES Final Result [facility] [address] [address] Department of Laboratories [place], [place] [id number] documented in this encounter Visit Diagnoses Diagnosis Encounter for supervision of other normal in third trimester 27 weeks gestation of Acute vaginitis Unspecified vaginitis and vulvovaginitis documented in this encounter Care Teams Grinder Tender Relationship Specialty Start Date End Date No, Physician PCP - General 03/09/23 documented as of this encounter
--- OUTSIDE RECORDS SUMMARY | 2024-10-17 11:09 | XMS_ITS | Encounter Summary ---
Author Organization [facility] Address [address] [facility] [address] [place] [address] Care Team Providers Care Mobile Marketing Specialist Name Role Phone No, Physician Primary Care Provider [phone] Reason for Visit * Diagnostic Imaging (Routine) - Closed Specialty Diagnoses / Procedures Referred By Lenora pacheco Referred To Contact Diagnoses Encounter to determine viability of , single or unspecified fetus 15 weeks gestation of Procedures US OB 14 Weeks Or Over US Ob Under 14 Weeks Margareth Herrera, DO [address] [place] [address] Phone: tel: fax: [facility] Referral ID Status Reason Start Date Expiration Date Visits Re quested Visits Authorized [id number] Closed 03/09/2023 04/07/2024 1 1 Encounter Details Date Type Department Care Team (Latest Contact Info) Description 03/23/2023 9:10 AM CDT Ancillary Procedure [facility] [address] [facility] [place] [address] Encounter to determine viability of , single [...] of documented in this encounter Care Teams Mobile Marketing Specialist Relationship Specialty Start Date End Date No, Physician PCP - General 03/09/23 documented as of this encounter
--- OUTSIDE RECORDS SUMMARY | 2024-10-17 11:09 | XMS_ITS | Encounter Summary ---
Author Organization [facility] Address [address] [address] Care Team Providers Care College Or University Business Manager Name Role Phone No, Physician Primary Care Provider [phone] Reason for Referral * Diagnostic Imaging (Routine) - Closed Specialty Diagnoses / Procedures Referred By Lenora t Referred To Contact Diagnoses Encounter for maternal care for excessive growth in second trimester, single or unspecified fetus 20 weeks gestation of Procedures US Ob 14 Weeks Or Over Margareth Herrera DO [address] [address] Phone: tel: fax: [facility] Referral ID Status Reason Start Date Expiration Date Visits Re quested Visits Authorized [id number] Closed 04/14/2023 05/13/2024 1 1 Encounter Details Date Type Department Care Team (Late st Contact Info) Description 04/14/2023 2:30 PM CDT Office Visit [facility] [address] [place] [address] Margareth Herrera DO [address] [address] care, subsequent , second trimester (Primary Dx); [...] of documented in this encounter Care Teams College Or University Business Manager Relationship Specialty Start Date End Date No, Physician PCP - General 03/09/23 documented as of this encounter
--- OUTSIDE RECORDS SUMMARY | 2024-10-17 11:09 | XMS_ITS | Encounter Summary ---
Author Organization [facility] Address [address] [facility] [address] [place] [address] Care Team Providers Care Senior Net C Developer Name Role Phone No, Physician Primary Care Provider [phone] Encounter Details Date Type Department Care Team (Late st Contact Info) Description 05/15/2023 Orders Only [facility] [address] [place] [address] Hannah Pop MD [address] [place] [address] Encounter for supervision of other [...] laboratory. [facility]SC[facility] ARMENDARIZ Comment:Testing performed by : [facility], [address] [place]., [address] Organism GROWTH INDICATES CONTAM WITH PERIURETHRAL SHEKHAR. [facility] Urine, clean voided 06/16/2023 3:58 PM CDT 06/16/2023 10:43 PM CDT Narrative [facility] - 06/18/2023 11:15 AM CDT Testing performed by [facility] Microbiology Laboratory ([phone]) us Hannah Pop MD LAB MICROBIOLOGY - NERAL ORDERABLES Final Result [facility] [address] [address] Department [place] [address] * HIV 1/2 Antibody plus [...] NERAL ORDERABLES Final Result Performing Organization Address [facility] de Phone Number FERNANDOTYREL ARMENDAR[facility] [address] [address] Department [place] [address] * Glucose tolerance testing 50 gram gestational [...] BLOOD ORDERABLES Final Result Performing Organization Address [facility] de Phone Number FERNANDOTYREL ARMENDARIZ [address] [address] Department [place] [address] * (ABNORMAL) CBC with auto differential (06/16/2023 10:41 AM CDT) WBC 9.2 3.8 - 9.9 K/cumm [facility] Hgb 11.4(L) 11.9 - 15.5 g/dL [facility] Hct 35.0(L) 35.6 - 45.5 % [facility] Plt 255 150 - 400 K/cumm [facility] MPV 9.9 9.1 - 12.3 fL [facility] RBC 3.77(L) 3.90 - 5.20 M/cumm [facility] MCV 92.8 81.3 - 96.4 fL [facility] MCH 30.2 27.1 - 33.3 pg [facility] MCHC 32.6 32.3 - 35.7 g/dL [facility] RDW CV 12.7 11.1 - 14.9 % [facility] RDW SD 43.6 35.7 - 48.1 fL [facility] NRBC abs 0.00 0.00 - 0.01 K/cumm [facility] Blood 06/16/2023 10:4 1 AM CDT 06/16/2023 6:47 PM CDT us Hannah Pop MD LAB BLOOD ORDERABLES Final Result [facility] [address] [address] Department of Laboratories [place] [id number] documented in this encounter Visit Diagnoses Diagnosis Encounter for supervision of other normal in third trimester- Primary 27 weeks gestation of Encounter for supervision of other normal in third trimester 27 weeks gestation of Acute vaginitis Unspecified vaginitis and vulvovaginitis documented in this encounter Care Teams Senior Net C Developer Relationship Specialty Start Date End Date No, Physician PCP - General 03/09/23 documented as of this encounter
--- OUTSIDE RECORDS SUMMARY | 2024-10-17 11:09 | XMS_ITS | Encounter Summary ---
Author Organization [facility] Address [address] [address] Care Team Providers Care Ferry Terminal Agent Name Role Phone No, Physician Primary Care Provider [phone] Encounter Details Date Type Department Care Team (Late st Contact Info) Description 06/16/2023 11:10 AM CDT Lab [facility] [address] [place] [address] care, subsequent , third trimester (Primary [...] of documented in this encounter Care Teams Ferry Terminal Agent Relationship Specialty Start Date End Date No, Physician PCP - General 03/09/23 documented as of this encounter
--- OUTSIDE RECORDS SUMMARY | 2024-10-17 11:09 | XMS_ITS | Encounter Summary ---
Author Organization [facility] Healthcare Address [address] [place] [address] Care Team Providers Care Odd Job Worker Name Role Phone No, Physician Primary Care Provider [phone] Encounter Details Date Type Department Care Team (Late st Contact Info) Description 06/22/2023 Orders Only [address] [address] Margareth Herrera, DO [address] [place] [address] Social History Tobacco Use Types Packs/Day Years [...] on filedocumented in this encounter Care Teams Odd Job Worker Relationship Specialty Start Date End Date No, Physician PCP - General 03/09/23 documented as of this encounter
--- OUTSIDE RECORDS SUMMARY | 2024-10-17 11:09 | XMS_ITS | Encounter Summary ---
Author Organization [facility] Healthcare Address [address] [place] [address] Care Team Providers Care Metal Cans Supervisor Name Role Phone No, Physician Primary Care Provider [phone] Encounter Details Date Type Department Care Team (Latest Contact Info) Description 03/23/2023 11:20 AM CDT - 03/23/2023 11:59 PM CDT Hospital Encounter [address] [address] care, subsequent , second trimester; 15 weeks [...] this encounter Medications at Time of Discharge [id number]-f olic (Kosher Plus Iron) 30 mg iron- [...] CDT) C. trachomatis Not detected Not detected [facility] N. gonorrhoeae Not detected Not detected [facility] Comment: Testing performed by the [facility]. This assay detects Chlamydia trachomatis [...] - GENE RAL ORDERABLES Final Result [facility] [address] Department [place] [address] * Differential, auto (03/23/2023 11:20 AM CDT) Neutrophil abs 5.5 1.7 - 6.5 K/cumm [facility] gran abs 0.0 0.0 - 0.1 K/cumm [facility] Lymphocyte abs 1.7 0.8 - 3.3 K/cumm [facility] Monocyte abs 0.7 0.2 - 0.8 K/cumm [facility] Eosinophil abs 0.2 0.0 - 0.5 K/cumm [facility] Basophil abs 0.0 0.0 - 0.1 K/cumm [facility] Neutrophil pct 68.0 % [facility] Comment: Interpretive Data Percent cell [...] DO LAB BLOOD ORDERABLES Fi nal Result [facility] [address] Department [place] [address] * Alpha fetoprotein, quad screen (03/23/2023 11:20 [...] CH GA Used In Risk. Dates estimate [facility] alpha Fetoprotein 28.2 ng/mL [facility] Estriol, unconjugated 0.60 ng/mL [facility] HCG, qual 46.1 IUnits/m L [facility] Inhibin A, interpretation 289 pg/mL [facility] Down Syndrome Screen Risk Estimate. <270 [facility] Down Syndrome Maternal Age Risk. [facility] Trisomy 18 risk assessment <1/50,000 <1/100 [facility] alpha fetoprotein See Footnote [facility] Comment: Screen negative for neural tube defects, Down syndrome and trisomy 18. Additional Comments. Not Reported [facility] Recommended Follow Up. None. [facility] General Test Info. See Footnote [...] developed and its performance characteristics determined by [facility] in a manner consistent with CLIA requirements. This test has not been cleared or approved by the U.S. Food and Drug Administration. Test Performed by: [facility] [address] [place] [address] Pharmacy Technician Inpatient: Chris Cleveland M.D. Ph.D.; CLIA# [id number] RESULTS SUMMARY Normal risk [facility] NEURAL [...] OR REPEAT TESTING Initial testing [facility] PHYSICIAN PHONE NUMBER [phone] [facility] Blood 03/23/2023 11:2 0 AM CDT 03/23/2023 5:32 PM CDT Margareth Herrera DO LAB GENETIC TESTING Fin al Result Performing Organization Address City/[facility]/ZIP Co de Phone Number [facility] ARMENDARIZ [address] Department [place] [address] * Urine culture Urine, clean voided (03/23/2023 11:20 AM CDT) Report Final Report: Less than 100,000 colonies/mL (clinically insignificant growth based on current clinical standards) [facility] Comment:Testing performed by : [facility], [address] [place] [address] Organism (CLINICALLY INSIGNIFICANT GROWTH [facility] Urine, clean voided 03/23/2023 11:20 AM CDT 03/23/2023 9:05 PM CDT Narrative [facility] - 03/25/2023 5:16 AM CDT Testing performed by [facility] Microbiology Laboratory ([phone]) Margareth Herrera DO LAB MICROBIOLOGY - GENE RAL ORDERABLES Final Result Performing Organization Address City/[facility]/ZIP Co de Phone Number [facility] ARMENDARIZ [address] Department of [employer] [place], [place] [id number] * (ABNORMAL) Drugs of Abuse Screen, Urine without Confirmation (03/23/2023 11:20 AM CDT) [facility] Amphetamine, ur Not Detected CutOff [...] 2018. Benzodiazepines, ur Not Detected CutOff 100ng/mL [facility] Comment: Interpretive Data - Benzodiazepines: ??Samples containing greater than 100 ng/mL nordiazepam or other cross-reacting compounds are reported as positive. ?? False positive and false negative results are possible. ?? Current Interpretive Data was last reviewed 2018. Cannabinoids, ur Detected(A) CutOff 50 ng/mL [facility] Comment: Interpretive Data - Cannabinoids: ??Samples containing greater than 50 ng/mL delta-9 THC -COOH or other cross-reacting compounds are reported as positive. ??False positive and false negative results are possible. ?? Current Interpretive Data was last reviewed 2018. Cocaine, ur Not Detected CutOff 150ng/mL [facility] Comment: Interpretive Data - Cocaine: ??Samples containing greater than 150 ng/mL benzoylecgonine or other cross-reacting compounds are reported as positive. False positive and false negative results are possible. Current Interpretive Data was last reviewed 2018. Fentanyl, Ur Not Detected Cutoff 1 ng/mL [facility] Comment: Interpretive Data - Fentanyls: ??Samples containing [...] DO LAB URINE ORDERABLES Fi nal Result [facility] [address] [address] Department [place] [address] * HIV 1/2 Antibody plus p24 Antigen Blood (03/23/2023 11:20 AM CDT) Pathologist [facility] HIV 1/2 ab + p24 ag Nonreactive Nonreactive [facility] Comment: Nonreactive for HIV-1 antigen and HIV-1/HIV-2 antibodies. No laboratory evidence of HIV infection. If acute HIV infection is suspected, consider testing for HIV-1 RNA. Blood 03/23/2023 11:2 0 AM CDT 03/23/2023 5:32 PM CDT Margareth Herrera DO LAB MICROBIOLOGY - GENE RAL ORDERABLES Final Result [facility] [address] Department [place] [address] * RPR Blood (03/23/2023 11:20 AM CDT) [facility] RPR Nonreactive Nonreactive [facility] Blood 03/23/2023 11:2 0 AM CDT 03/23/2023 5:32 PM CDT Margareth Herrera DO LAB MICROBIOLOGY - GENE RAL ORDERABLES Final Result Performing Organization Address City/[facility]/ZIP Co de Phone Number [facility] [address] [address] Department [place] [address] * (ABNORMAL) Varicella Zoster IgG antibody Blood (03/23/2023 11:20 AM CDT) Pathologist [facility] VZV IgG Nonreacti ve(A) Reactive [facility] Comment: Non-reactive: No detectable antibody to Varicella-zoster virus.??Such individuals are presumed to be uninfected and to be susceptible to primary infection. Testing performed by: [facility], [address] [facility], [place]., [address] Blood 03/23/2023 11:2 0 AM CDT 03/24/2023 12:51 PM CDT us Margareth Herrera DO LAB MICROBIOLOGY - GENE RAL ORDERABLES Final Result [facility] ARMENDARIZ [address] Department [place] [address] * Type and screen (03/23/2023 [...] ORD ERABLES Final Result Performing Organization Address [facility] Co de Phone Number [facility] ARMENDARIZ [address] Department [place] [address] * Rubella IgG antibody (03/23/2023 11:20 AM CDT) Pathologist [facility] Rubella IgG Reactive [facility] Comment: Reactive: Results suggest response to immunization or prior exposure to the virus. Testing performed by: [facility], [address] [place]., [address] Blood 03/23/2023 11:2 0 AM CDT 03/24/2023 12:51 PM CDT Margareth Herrera DO LAB MICROBIOLOGY - GENE RAL ORDERABLES Final Result Performing Organization Address City/[facility]/ZIP Co de Phone Number [facility] ARMENDARIZ [address] Department [place] [address] * Hepatitis B Surface Antigen (03/23/2023 11:20 AM CDT) HepBsAg Nonreactive Nonreactive [facility] Blood 03/23/2023 11:2 0 AM CDT 03/23/2023 5:32 PM CDT Margareth Herrera DO LAB MICROBIOLOGY - GENE RAL ORDERABLES Final Result Performing Organization Address City/[facility]/ZIP Co de Phone Number [facility] ARMENDARIZ [address] [facility] [place] [address] * Hepatitis C antibody (03/23/2023 11:20 AM CDT) Hep C Ab Nonreactive Nonreactive [facility] Comment: Interpretive Data Nonreactive: Antibodies [...] Edited Result - Final Performing Organization Address City/[facility] Co de Phone Number OSC[facility] ARMENDARIZ [address] [address] [facility] [place] [address] * CBC with auto differential (03/23/2023 11:20 AM CDT) Pathologist [facility] WBC 8.1 3.8 - 9.9 K/cumm [facility] Hgb 11.9 11.9 - 15.5 g/dL [facility] Hct 35.9 35.6 - 45.5 % [facility] Plt 273 150 - 400 K/cumm [facility] MPV 10.1 9.1 - 12.3 fL [facility] RBC 4.04 3.90 - 5.20 M/cumm [facility] MCV 88.9 81.3 - 96.4 fL [facility] MCH 29.5 27.1 - 33.3 pg [facility] MCHC 33.1 32.3 - 35.7 g/dL [facility] RDW CV 13.7 11.1 - 14.9 % [facility] RDW SD 45.0 35.7 - 48.1 fL [facility] NRBC abs 0.00 0.00 - 0.01 K/cumm [facility] Blood 03/23/2023 11:2 0 AM CDT 03/23/2023 5:32 PM CDT us Margareth Herrera DO LAB BLOOD ORDERABLES Fi nal Result [facility] [address] [facility] Department [place] [address] * Pap with reflex to High Risk HPV (03/23/2023 8:02 AM CDT) Thin prep (Pap test) 03/23/2023 8:02 AM CDT 03/23/2023 8:02 AM CDT Narrative PATHOLOGY CH - 03/28/2023 1:21 PM CDT [facility] Department of Pathology [id number] [place], [place] [id number] Final Report Note to Patients: This report [...] ??HANNAH PYLE Address: ??[address], ?? [place], [place] [address] Gender: ??F : ??1995 (Age: 27) Service: ?? Location: ?? Hospital #: ??[id number] Patient Type: ?? SPECIMEN Taken: ??03/23/2023 Received: ??03/23/2023 Accessioned:: ??03/24/2023 Reported: ??03/28/2023 Physician(s): Nessa Mcgee D.O. Diagnosis: SOURCE OF SPECIMEN ? Imaged Thinprep Pap Test w/ Reflex HPV - Wire Rope Sling Maker Cytologic Material: STATEMENT OF ADEQUACY ?- Specimen satisfactory for interpretation; endocervical/transformation zone component absent or ?insufficient ? GENERAL CATEGORIZATION: ?- Negative for intraepithelial lesion or malignancy ? INTERPRETATION: ?- Numerous inflammatory cells present ? DISHA Faulkner(ASCP) Report Electronically Reviewed and Signed Out By ??DISHA Faulkner(ASCP) ??03/28/2023 13:21:27Specimen(s) Received: A: Imaged Thinprep Pap Test w/ Reflex HPV - Wire Rope Sling Maker Cytologic Material Clinical History: Last Menstrual Period: [...] determined by the Surgical Pathology Department at [facility] as part of an ongoing software quality assurance analyst program and in compliance with federally mandated [...] characteristics determined by the Surgical Pathology Department [facility]. ??It has not been cleared or approved by the U. S. Food and Drug Administration. Margareth Herrera DO LAB CYTOLOGY ORDERABLES Final Result Performing Organization Address City/State/[facility] Co de Phone Number PATHOLOGY [address] [place] [address] documented in this encounter Visit Diagnoses Diagnosis care, subsequent , second trimester 15 weeks gestation of Screen for sexually transmitted diseases Screening examination for venereal disease Screening for malignant neoplasm of cervix Screening for malignant neoplasm of the cervix documented in this encounter Care Teams Metal Cans Supervisor Relationship Specialty Start Date End Date No, Physician PCP - General 03/09/23 documented as of this encounter
--- OUTSIDE RECORDS SUMMARY | 2024-10-17 11:09 | XMS_ITS | Encounter Summary ---
Author Organization [facility] Address [address] [facility] [address] [place] [address] Care Team Providers Care Agent Telegrapher Name Role Phone No, Physician Primary Care Provider [phone] Reason for Visit * Reason Comments Routine Visit Encounter Details Date Type Department Care Team (Late st Contact Info) Description 06/30/2023 11:30 AM CDT Office Visit [facility] [address] [place] [address] Margareth Herrera, DO [address] [address] Encounter for supervision of other normal in [...] Protein, ur, POC Negative Negative Lot Number [id number] Urine 06/30/2023 11:3 7 AM CDT Margareth Herrera DO POINT OF CARE TEST SANDRAHortencia CLEARYCAL Final Result documented in this encounter Visit Diagnoses Diagnosis Encounter for supervision of other normal in third trimester- Primary documented in this encounter Care Teams Agent Telegrapher Relationship Specialty Start Date End Date No, Physician PCP - General 03/09/23 documented as of this encounter
--- OUTSIDE RECORDS SUMMARY | 2024-10-17 11:09 | XMS_ITS | Encounter Summary ---
Author Organization [facility] Medical [facility] Address [address] [facility] [address] [place] [address] Care Team Providers Care Factory Helper Name Role Phone No, Physician Primary Care Provider [phone] Encounter Details Date Type Department Care Team (Late st Contact Info) Description 06/22/2023 Telephone [facility] [address] [place] [address] Elena Veliz LPN Social History [...] place to sleep or slept in a halfway (including now)? No 04/14/2023 Comments Yes Sex [...] PM CDT Patient notified. Will go to [facility] in [place] tomorrow for 3 hr GTT * Telephone [...] Glucose, fasting 75 65 - 94 mg/dL [facility] Glucose, 1 hour 165 <180 mg/dL [facility] Glucose, 100g, 2 hr, pl 127 <155 mg/dL [facility] Glucose, 100g, 3 hr, pl 74 <140 mg/dL [facility] Comment [facility] Comment: ?? Galaviz/Coustan Criteria: Two or more values greater than the above reference intervals are suggestive of gestational diabetes. ?? Serum 07/05/2023 9:21 AM CDT 07/05/2023 9:22 AM CDT Narrative [facility] - 07/06/2023 2:32 AM CDT FASTING:YES FASTING: YES Margareth Herrera DO LAB BLOOD ORDERABLES Fi nal Result [facility] [address] [place] [address] documented in this encounter Visit Diagnoses Diagnosis Elevated glucose tolerance test- Primary Impaired glucose tolerance test documented in this encounter Care Teams Factory Helper Relationship Specialty Start Date End Date No, Physician PCP - General 03/09/23 documented as of this encounter
--- OUTSIDE RECORDS SUMMARY | 2024-10-17 11:09 | XMS_ITS | Encounter Summary ---
Author Organization [facility] Medical Group Address [address] [facility] [address] [place] [address] Care Team Providers Care Stem Processing Machine Operator Name Role Phone No, Physician Primary Care Provider [phone] Encounter Details Date Type Department Care Team (Late st Contact Info) Description 04/10/2023 Documentation [facility] [address] [place] [address] Margareth Herrera DO [address] [address] Social History Tobacco Use Types Packs/Day Years [...] on filedocumented in this encounter Care Teams Stem Processing Machine Operator Relationship Specialty Start Date End Date No, Physician PCP - General 03/09/23 documented as of this encounter
--- OUTSIDE RECORDS SUMMARY | 2024-10-17 11:09 | XMS_ITS | Encounter Summary ---
Author Organization [facility] Medical [facility] Address [address] [facility] [address] [place] [address] Care Team Providers Care Row Boss Name Role Phone No, Physician Primary Care Provider [phone] Encounter Details Date Type Department Care Team (Late st Contact Info) Description 06/22/2023 Telephone [facility] [address] [place] [address] Elena Veliz LPN Social History [...] on filedocumented in this encounter Care Teams Row Boss Relationship Specialty Start Date End Date No, Physician PCP - General 03/09/23 documented as of this encounter
--- OUTSIDE RECORDS SUMMARY | 2024-10-17 11:09 | XMS_ITS | Encounter Summary ---
Author Organization [facility] Address [address] [facility] [address] [place] [address] Care Team Providers Care Frame Builder Name Role Phone No, Physician Primary Care Provider [phone] Reason for Visit * Reason Comments Routine Visit Encounter Details Date Type Department Care Team (Late st Contact Info) Description 06/16/2023 10:50 AM CDT Office Visit [facility] [address] [place] [address] Margareth Herrera, DO [address] [place] [address] care, subsequent , second trimester (Primary Dx); [...] Vaginitis panel Vaginal (06/16/2023 4:30 PM CDT) [facility] Marley DNA probe Detected(A) Not Detected [facility] Comment:Testing performed by : [facility], [address] [place] [address]., [address] Gardnerella DNA probe Detected(A) Not Detected [facility] ARMENDARIZ Comment:Testing performed by : [facility], [address] [place] [address]., [id number] Trichomonas DNA probe Not Detected Not Detected [facility] ARMENDARIZ Comment: Interpretive Data Testing performed by [facility] via Affirm VPIII Microbial Identification Test, [...] last revised on 2020. Testing performed by: [facility], [address] [place] [address]., [address] Vaginal 06/16/2023 4:30 PM CDT 06/17/2023 2:00 PM CDT Margareth Herrera DO LAB MICROBIOLOGY - GENE [facility] ORDERABLES Final Result [facility] [address] [address] Department [place] [address] * (ABNORMAL) POCT urine glucose and protein (06/16/2023 10:13 AM CDT) [facility] Glucose, ur, POC Negative Negative MG/DL Protein, ur, POC 1+(A) Negative Lot Number [id number] Urine 06/16/2023 10:1 3 AM CDT Margareth Herrera DO POINT OF CARE TEST YIMI MACIAS Final Result documented in this encounter Visit Diagnoses Diagnosis care, subsequent , second trimester- Primary Acute vaginitis Unspecified vaginitis and vulvovaginitis documented in this encounter Care Teams Frame Builder Relationship Specialty Start Date End Date No, Physician PCP - General 03/09/23 documented as of this encounter
--- OUTSIDE RECORDS SUMMARY | 2024-10-17 11:09 | XMS_ITS | Encounter Summary ---
Author Organization [facility] Address [address] [facility] [address] [place] [address] Care Team Providers Care Tearoom Host/Hostess Name Role Phone No, Physician Primary Care Provider [phone] Encounter Details Date Type Department Care Team (Late st Contact Info) Description 05/03/2023 Telephone [facility] [address] [place] [address] Denise Venegas Social History Tobacco [...] on filedocumented in this encounter Care Teams Tearoom Host/Hostess Relationship Specialty Start Date End Date No, Physician PCP - General 03/09/23 documented as of this encounter
--- OUTSIDE RECORDS SUMMARY | 2024-10-17 11:09 | XMS_ITS | Encounter Summary ---
Author Organization [facility] Address [address] [address] Care Team Providers Care Jewel Supervisor Name Role Phone No, Physician Primary Care Provider [phone] Reason for Visit * Reason Comments New Patient Initial Visit Encounter Details Date Type Department Care Team (Late st Contact Info) Description 03/23/2023 10:10 AM CDT Office Visit [facility] [address] [place] [address] Margareth Herrera, DO [address] [place] [address] care, subsequent , second trimester (Primary Dx); [...] MD 6 Current Past medical, surgical, and SKIP HOIST ENGINEER 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 Review of Systems Constitutional: [...] was counseled on the limitations of our [facility] and that can not guarantee the commercial lending relationship manager OB will offer a TOLAC if [...] ARMENDARIZ Comment: Testing performed by the [facility]. This assay detects Chlamydia trachomatis and [...] GENE RAL ORDERABLES Final Result OSCAR ARMENDARIZ [address] Department [place] [address] * (ABNORMAL) Varicella Zoster IgG antibody Blood (03/23/2023 11:20 AM CDT) VZV IgG Nonreacti ve(A) Reactive CERNER Comment: Non-reactive: No detectable antibody to Varicella-zoster virus.??Such individuals are presumed to be uninfected and to be susceptible to primary infection. Testing performed by: [facility], [address] [place]., [address] Blood 03/23/2023 11:2 0 AM CDT 03/24/2023 12:51 PM CDT Margareth Herrera DO LAB MICROBIOLOGY - GENE RAL ORDERABLES Final Result Performing Organization Address [facility] Co de Phone Number [facility] [address] Department [place] [address] * Urine culture Urine, clean voided (03/23/2023 11:20 AM CDT) Report Final Report: Less than 100,000 colonies/mL (clinically insignificant growth based on current clinical standards) OSCAR Comment:Testing performed by : [facility], [address] [facility], [place]., [address] Organism (CLINICALLY INSIGNIFICANT GROWTH CERNER Urine, clean voided 03/23/2023 11:20 AM CDT 03/23/2023 9:05 PM CDT Narrative [facility] - 03/25/2023 5:16 AM CDT Testing performed by [facility] Microbiology Laboratory ([phone]) Margareth Herrera DO LAB MICROBIOLOGY - GENE RAL ORDERABLES Final Result Performing Organization Address [facility] Co de Phone Number OSCAR [address] [place] [address] * Type and screen (03/23/2023 11:20 AM CDT) Rinku, indirect Negative CERNER CH ABO Rh B Positive CERNER Blood 03/23/2023 11:2 0 AM CDT 03/23/2023 5:36 PM CDT Narrative [facility] - 03/23/2023 7:02 PM CDT Has the patient had Daratumumab or Isatuximab in the past 6 months?->Unknown Margareth Herrera LAB BLOOD BANK TEST ORD ERABLES Final Result Performing Organization Address City/[facility]/ZIP Co de Phone Number OSCAR [address] Department of [employer] [place], [place] [id number] * Rubella IgG antibody (03/23/2023 11:20 AM CDT) Rubella IgG Reactive [facility] Comment: Reactive: Results suggest response to immunization or prior exposure to the virus. Testing performed by: [facility], [address] [place]., [address] Blood 03/23/2023 11:2 0 AM CDT 03/24/2023 12:51 PM CDT Margareth Herrera LAB MICROBIOLOGY - GENE RAL ORDERABLES Final Result Performing Organization Address City/[facility]/ZIP Co de Phone Number OSCAR [address] [place] [address] * RPR Blood (03/23/2023 11:20 AM CDT) RPR Nonreactive Nonreactive [facility] Blood 03/23/2023 11:2 0 AM CDT 03/23/2023 5:32 PM CDT Margareth Herrera LAB MICROBIOLOGY - GENE RAL ORDERABLES Final Result [facility] [address] [place] [address] * HIV 1/2 Antibody plus [...] RAL ORDERABLES Final Result Performing Organization Address [facility] Phone Number [facility] [address] [address] [facility] [place] [address] * Hepatitis C antibody (03/23/2023 11:20 AM CDT) Hep C Ab Nonreactive Nonreactive [facility] Comment: Interpretive Data Nonreactive: Antibodies to HCV [...] Edited Result - Final Performing Organization Address [facility] de Phone Number [facility] [address] [address] [facility] [place] [address] * Hepatitis B Surface Antigen (03/23/2023 11:20 AM CDT) HepBsAg Nonreactive Nonreactive [facility] Blood 03/23/2023 11:2 0 AM CDT 03/23/2023 5:32 PM CDT Margareth Herrera DO LAB MICROBIOLOGY - GENE RAL ORDERABLES Final Result Performing Organization Address [facility] Phone Number [facility] [address] Department [place] [address] * (ABNORMAL) Drugs of Abuse Screen, Urine without Confirmation (03/23/2023 11:20 AM CDT) Pathologist [facility] Amphetamine, ur Not Detected CutOff 500ng/mL [facility] [...] 2018. Benzodiazepines, ur Not Detected CutOff 100ng/mL [facility] Comment: Interpretive Data - Benzodiazepines: [...] DO LAB URINE ORDERABLES Fi nal Result [facility] [address] [facility] [place] Department [place] [address] * CBC with auto differential (03/23/2023 11:20 AM CDT) WBC 8.1 3.8 - 9.9 K/cumm [facility] [...] DO LAB BLOOD ORDERABLES Fi nal Result [address] [place] [address] * Pap with reflex to High Risk HPV (03/23/2023 8:02 AM CDT) Thin prep (Pap test) 03/23/2023 8:02 AM CDT 03/23/2023 8:02 AM CDT Narrative PATHOLOGY [facility] - 03/28/2023 1:21 PM CDT [facility] Department of Pathology [address] [place] [address] Final Report Note to Patients: This [...] ??HANNAH LUIS Address: ??[address], ?? [place], [place] ?? Gender: ??F : ??1995 (Age: 27) Service: ?? Location: ?? Hospital #: ??[id number] Patient Type: ?? SPECIMEN Taken: ??03/23/2023 Received: ??03/23/2023 Accessioned:: ??03/24/2023 Reported: ??03/28/2023 Physician(s): Nessa Mcgee D.O. Diagnosis: SOURCE OF SPECIMEN ? Imaged Thinprep Pap Test w/ Reflex HPV - Taxicab Coordinator Cytologic Material: STATEMENT OF ADEQUACY ?- Specimen satisfactory for interpretation; endocervical/transformation zone component absent or ?insufficient ? GENERAL CATEGORIZATION: ?- Negative for intraepithelial lesion or malignancy ? INTERPRETATION: ?- Numerous inflammatory cells present ? DISHA Faulkner(ASCP) Report Electronically Reviewed and Signed Out By ??DISHA Faulkner(ASCP) ??03/28/2023 13:21:27Specimen(s) Received: A: Imaged Thinprep Pap Test w/ Reflex HPV - Taxicab Coordinator Cytologic Material Clinical History: Last Menstrual Period: [...] by the Surgical Pathology Department at [facility] as part of an ongoing associate quality engineer program and in compliance with federally mandated [...] characteristics determined by the Surgical Pathology Department [facility]. ??It has not been cleared or approved by the U. S. Food and Drug Administration. Margareth Herrera DO LAB CYTOLOGY ORDERABLES Final Result PATHOLOGY [address] [place] [address] documented in this encounter Visit Diagnoses Diagnosis [...] may reflect changes made after this encounter. [id number],crb-f olic (Kosher Plus Iron) 30 mg iron- 1 mg tablet Take 1 tablet by mouth daily 03/06/2021 08/22/2023 added in this encounter Care Teams Jewel Supervisor Relationship Specialty Start Date End Date No, Physician PCP - General 03/09/23 documented as of this encounter
--- OUTSIDE RECORDS SUMMARY | 2024-10-17 11:09 | XMS_ITS | Encounter Summary ---
Author Organization [facility] Address [address] [place] [address] Care Team Providers Care Diesel Crane Operator Name Role Phone No, Physician Primary Care Provider [phone] Encounter Details Date Type Department Care Team (Late st Contact Info) Description 03/30/2023 Telephone [facility] [address] [place] [address] Elena Veliz LPN Social History [...] on filedocumented in this encounter Care Teams Diesel Crane Operator Relationship Specialty Start Date End Date No, Physician PCP - General 03/09/23 documented as of this encounter
--- OUTSIDE RECORDS SUMMARY | 2024-10-17 11:09 | XMS_ITS | Encounter Summary ---
Author Organization [facility] Address [address] [place] [address] Care Team Providers Care Paddock Judge Name Role Phone No, Physician Primary Care Provider [phone] Reason for Visit * Diagnostic Imaging (Routine) - Closed Specialty Diagnoses / Procedures Referred By Lenora pacheco Referred To Contact Diagnoses Encounter for maternal care for excessive growth in second trimester, single or unspecified fetus 20 weeks gestation of Procedures US Ob 14 Weeks Or Over Margareth Herrera, DO [address] [place] [address] Phone: tel: fax: [facility] Referral ID Status Reason Start Date Expiration Date Visits Re quested Visits Authorized [id number] Closed 04/14/2023 05/13/2024 1 1 Encounter Details Date Type Department Care Team (Latest Contact Info) Description 04/27/2023 2:40 PM CDT Ancillary Procedure [facility] [address] [place] [id number] Encounter for maternal care for excessive growth [...] of documented in this encounter Care Teams Paddock Judge Relationship Specialty Start Date End Date No, Physician PCP - General 03/09/23 documented as of this encounter
--- OUTSIDE RECORDS SUMMARY | 2024-10-17 11:12 | XMS_ITS | Continuity of Care Document ---
Author Organization [facility] Address [address] [employer] [facility] [place] [address] Phone Care Team Providers Care Mule Spinner Name Role Phone Ugo Corona MD Unavailable Unavailable Advance Directives Directive Yes / No Effective Date File Name No Information Encounters Encounter Description Practice Location Reason(s) For Visit Diagnoses Date Provider Providers Copied on Encounter [facility] [place], [address] [place] [address] [employer] [facility] [place], [facility], tel:[phone] [facility] [place] No Information Cj Arizmendi. [address], [place], [place], [facility]. tel:[phone] Family History Family Member Type Diagnosis Age At Onset No Information Payers Payer name Insurance type Covered libertarian ID Authoriza tion(s) No Information Social History Type Description Quantity Date Captured Comments Sex Female Smoking Status No Information Chief Complaint And Reason For Visit No Information Plan Of Treatment Date Type Action Status No Information History Of Present Illness Encounter Date Complaint History Of Prese nt Illness No Information Instructions Date Instruction Additional Infor mation No Information Assessments Type Assessment Date No Information
--- OUTSIDE RECORDS SUMMARY | 2024-10-17 11:53 | XMS_ITS | Encounter Summary ---
Author Organization [facility] Address [facility] [place] [address] Care Team Providers Care Uptwist Spinner Name Role Phone Unavailable Primary Care Provider Unavailabl e Reason for Visit * Auth/Cert Specialty Diagnoses / Procedures Referred By Contac t Referred To Contact Referral ID Status Reason Start Date Expiration Date Visits Re quested Visits Authorized [id number] 1 1 Encounter Details Date Type Department Care Team (Latest Contact Info) Description 02/23/2021 4:20 PM CDT - 03/06/2021 1:00 PM CDT Hospital Encounter HC 6W MOTHER/BABY [address] [place] [address] Fabrice Solis MD [address] [place] [address] PLATFORM ATTENDANT Discharge Disposition: Home or Self Care Social [...] from the original note were not included. outside machinist Discharge Summary 03/19/2021, 8:28 AM Date of [...] Information for the patient's : Shaquille Luis [[id number]] Date of 03/04/2021 Time of : 10:41 [...] Your discharge diagnosis is: (spontaneous vaginal delivery) [[id number]] No special diet needed Resume your normal [...] the counter Benadryl for relief of itching. Fgml-ose-bessuvg medication Use an abdominal binder or belly band for comfort as needed, and use compression stockings (available at pharmacies or online at stores like [employer]) for leg swelling. Follow up with provider Order Specific Question Answer Comments Follow Up Instructions: in 2 weeks with high risk clinic at [address] [place] [address], in Maternal Medicine suite on . Machine Preservative Filler will call with appointment Phil Umana MD 03/19/2021 8:28 AM Associated attestation - Elisa Krueger MD - 03/26/2021 6:47 PM CDT [facility] I have reviewed Oneida Luis [...] stay for more information. Please contact your contract writer for the followin. Any burning or itching [...] example: your cell phone and cell phone fractionating still operator. PLEASE REMEMBER: 1. Always place your infant [...] - High-risk clinic in 2 weeks - assistant center manager to call with appt. * Sabrina [...] Krueger MD - 03/06/2021 1:44 PM CDT [facility] I have reviewed Oneida Luis [...] bonding occurs Outcome: Progressing * Thom Hali IngramTOSHIA-CUSTOMER LIAISON - 03/05/2021 10:32 AM CDT BONDING EQUIPMENT OPERATOR OB Progress Note Subjective: Oneida Luis Is [...] Summary Patient Information Patient Name Oneida Luis ([id number]) Legal Sex Female OB History 5 Para [...] PTL: Y A1: 9 A5: 9 [facility] Delivering Clinician: Chelsie Astorga MD Transcribed Labs [...] Blood Loss Admission (Current) from 02/23/2021 in [facility] 5 LDR Estimated Blood Loss 150 mL [...] 29.7 Comment: H 1.4 18 Matthew Luis [[id number]] Patient Information Patient Name Matthew Luis ([id number]) Legal Sex Male Anesthesia Method: Epidural, IV Narcotic Labor Events labor?: Yes steroids: Full Course GBS Status: negative Antibiotic: clindamycin, other Number of Antibiotic Doses: More than 5 Rupture Date: 03/04/21 Time: 2227 Rupture type: Artificial, Premature, Bulging, Ruptured, Patient Denies Leaking Fluid color: Clear, Gaines Fluid odor: Normal Odor Induction: Oxytocin, AROM [...] the patient's : Luis, Baby Boy Oneida [[id number]] Date of 03/04/2021 Time of : 10:41 [...] ACOSTA Initial count verified by: Mahogany ARMSTRONGRN [employer] Lap Pads Sponges Initial counts 0 15 6 0 Added to counts 0 0 0 0 Final counts 0 15 6 0 Final count personnel: DR. LOJA Final count verified by: Mahogany YOST RN Vaginal packing left in?: Neg Accurate final count?: Yes Delivery ([place]) Delivery Date: 03/04/21 Delivery Time: 10:41 PM [...] 34wks. Co-morbidities: - , pelvis proven to [id number], GBS neg, 02/24 2092g/44% - PPROM @ [...] deceleration x 1 > 2 hours ago [employer]: q2 min Cervical Exam Dilation (cm): 3.5 [...] decelerations with return to baseline and reacticity [employer]: palpating every 4-5min Unable to fully assess [...] 145 baseline, moderate variability, reactive, no decelerations [employer]: minimal ctx Cervical exam Dilation (cm): 1.5 [...] 145 bpm, moderate variability, reactive, no decelerations [employer]: uterine irritability Cervical Exam Dilation (cm): 1.5 [...] MD 03/04/2021 9:11 AM * Hali Tomas APRN-CUSTOMER LIAISON - 03/04/2021 8:22 AM CDT BONDING EQUIPMENT OPERATOR MFM Antepartum Progress Note Date: 03/04/2021 Hospital [...] 1631 174 lb 1.6 oz (79 kg) [facility] Recent Labs Component Name 02/26/21 1514 [...] Tomas APRN-CNP - 03/03/2021 8:08 AM CDT BONDING EQUIPMENT OPERATOR MFM Antepartum Progress Note Date: 03/03/2021 Hospital [...] Krueger MD - 03/02/2021 3:01 PM CDT [facility] I have reviewed Oneida Luis [...] 10.8* HCT 34.9* 31.6* 33.5* PLTCOUNT [phone] I have the following additions/revision to the [...] once the baby is born. 1:05 PM corrections caseworker, Denise Rodriguez, met with pt in her room. Discussed items still needed in the home. Pt stated that she is still in need of some items including additional baby clothes and a Pack N Play for the baby to sleep. SW discussed role as mandated event operations manager if cord tissue drug screen results are positive for any illegal or controlled substances; pt verbalized understanding. Discussed ptno longer scheduled for CS, but will be induced on . Discussed PPD and provided PPD information. SW provided W&I Resource Guide. Psychosocial assessment completed. PLATFORM ATTENDANT CASE MANAGEMENT PSYCHOSOCIAL ASSESSMENT Reason for Referral: Pt would like help preparing for baby at home Patient diagnosis and relevant medical history: DX: The encounter diagnosis was Premature rupture of membranes, unspecified duration to onset of labor, unspecified gestational age. Father of baby: Shaquille Luis, . Very supportive and involved. Language Barriers: N/A Cultural Barriers: N/A Ethnicity: White/ Lang: [place] Patient's Address: [address] [place] [address] Pt's phone number: [phone] (home) Family Support (name and phone) Extended Emergency Contact Information Primary Emergency Contact: Shaquille Luis Address: [address] [place] [address] Mobile Relation: Spouse Secondary Emergency Contact: JANES SHANNON Mobile Relation: Mother Plastic Surgeon needed? No Alternative Farm Management Adviser Family Strengths: Pt stated that her family [...] (Temporary Assistance to Needy Families)- No Food [place]- Yes WIC- Yes SSI- No Insurance: Payor/Plan Subscriber Name Rel Member # Group # MEDICAID AETNA BETTER* ONEIDA LUIS Self [id number] [address] [address] Community Resources Utilized: None identified Designated Tractor Mechanic Helper: [facility] Referrals: Nurses for Newborns- [place] Resident Child protection referral- DFS/DCFS-Name of worker: Phone number: Other- Does the family have the following basic discharge needs? Utilities- Yes Telephone- Yes Car seat- Yes Crib- Yes Baby clothing- Yes Tnt Line Supervisor/School: Older children are attending in person school, pt is a stay at home mother. If she is in need of assistance her mother and father provide childcare assistance. Transportation: Pt has her own vehicle. Family planning: The pt and her PLATFORM ATTENDANT have discussed family planning. Recommended discharge plan for infant: Infant to return home with mother. MAXWELL Armstrong [phone] PRN Merchandise Associate * Buffy Collado MD - 03/01/2021 12:51 [...] baseline 145, moderate variability, reactive, no decelerations [employer]: irritable, no contractions BSUS: VTX A/p 1. [...] OK to insert midline * Hali Tomas, COMMERCIAL DEVELOPMENT MANAGER-CUSTOMER LIAISON - 03/01/2021 8:25 AM CDT .BONDING EQUIPMENT OPERATOR MFM Antepartum Progress Note Date: 03/01/2021 Hospital [...] bilaterally Labs: No new labs to review NST/[employer]: See separate procedure note MEDICATIONS FOR CURRENT [...] of Service: 02/28/21 MD Fabrice Mckenna MD [facility] * Tami Cano RN - 02/28/2021 1:45 AM CDT Shift summary: ([id number]) VSS, afebrile, abdomen nontender. pt denies pain, [...] AST, TBIL, TPROT, EGFR in the last 77360 hours. NST/[employer]: See separate procedure note MEDICATIONS FOR CURRENT [...] 3:35 PM CDT Social Work Progress Note corrections caseworker, Denise Rodriguez, attempted to meet with pt in her room. Pt was sleeping. SW will followup with pt next week. SW will follow up regarding items pt is still needing in the home at that time. Pt is scheduled for a CS 03/04/21. MAXWELL Armstrong [phone] PRN Merchandise Associate * Hali Tomas APRN-STEPHIE - 02/26/2021 8:32 AM CDT BONDING EQUIPMENT OPERATOR MFM Antepartum Progress Note Date: 02/26/2021 Hospital [...] AST, TBIL, TPROT, EGFR in the last 30930 hours. NST/[employer]: See separate procedure note MEDICATIONS FOR CURRENT [...] of Service: 02/25/21 MD Fabrice Mckenna MD [facility] * Delmy Ribeiro MD - 02/25/2021 5:30 AM CDT PGY2 PLATFORM ATTENDANT Progress Note In to see patient for [...] SVE: /-3. A little thinner than I coat checker her last night. At this time there is not much to offer patient in terms of medications. S/p LR and Tylenol w/o relief. Magnesium not indicated. BPs have bee 90/50s therefore Procardia not able to be used. Continue to monitor closely. Delmy Ribeiro MD 02/25/2021 5:30 AM * Delmy Ribeiro MD - 02/25/2021 2:49 AM CDT PGY2 PLATFORM ATTENDANT Progress Note In to see patient for [...] MD - 02/24/2021 10:10 PM CDT PGY2 PLATFORM ATTENDANT Progress Note In to see patient for [...] AST, TBIL, TPROT, EGFR in the last 93667 hours. NST/[employer]: See separate procedure note MEDICATIONS FOR CURRENT [...] of Service: 02/24/21 MD Fabrice Mckenna MD [facility] * Carline Joy RN - 02/23/2021 [...] MD - 02/23/2021 8:07 PM CDT PGY2 PLATFORM ATTENDANT Progress Note In to see patient for [...] AM CDT Non-Stress Test (NST) Oneida Luis [id number] 03/03/2021 Gestational age: 33w6d Indications: pprom Interpretation: [...] AM CDT Non-Stress Test (NST) Oneida Luis [id number] 03/03/2021 Gestational age: 33w6d Indications: pprom Interpretation: [...] PM CDT Non-Stress Test (NST) Oneida Luis [id number] 03/03/2021 Gestational age: 33w6d Indications: pprom Interpretation: [...] AM CDT Non-Stress Test (NST) Oneida Luis [id number] 03/02/2021 Gestational age: 33w5d Indications: pprom Interpretation: [...] AM CDT Non-Stress Test (NST) Oneida Luis [id number] 03/02/2021 Gestational age: 33w5d Indications: pprom Interpretation: [...] 135 bpm, moderate variability, reactive, no decelerations [employer]: irritable, no contractions A/P: well-being reassuring, continue testing as ordered or as otherwise indicated Buffy Collado MD 03/02/2021 10:24 AM Associated attestation - Elisa Krueger MD - 03/02/2021 12:24 PM CDT I have reviewed the tracing and concur with the resident's description and interpretation. The FHT is reactive using 15x15 bpm criteria. No FHR decelerations lasting >30 seconds were detected. Elisa Krueger MD [facility] * Buffy Collado MD - 03/01/2021 [...] 130 bpm, moderate variability, reactive, no decelerations [employer]: irritable, no contractions A/P: well-being reassuring, continue testing as ordered or as otherwise indicated Buffy Collado MD 03/02/2021 7:45 AM Associated attestation - Elisa Krueger MD - 03/02/2021 12:24 PM CDT I have reviewed the tracing and concur with the resident's description and interpretation. The FHT is reactive using 15x15 bpm criteria. No FHR decelerations lasting >30 seconds were detected. Elisa Krueger MD [facility] * Buffy Collado MD - 03/01/2021 [...] 135 bpm, moderate variability, reactive, no decelerations [employer]: irritable, no contractions A/P: well-being reassuring, continue testing as ordered or as otherwise indicated Buffy Collado MD 03/02/2021 7:45 AM Associated attestation - Elisa Krueger MD - 03/02/2021 12:23 PM CDT I have reviewed the tracing and concur with the resident's description and interpretation. The FHT is reactive using 15x15 bpm criteria. No FHR decelerations lasting >30 seconds were detected. Elisa Krueger MD [facility] * Laila Dexter RN - 03/01/2021 [...] PM CDT Non-Stress Test (NST) Oneida Luis [id number] 03/01/2021 Gestational age: 33w4d Indications: pprom Interpretation: [...] AM CDT Non-Stress Test (NST) Oneida Luis [id number] 02/28/2021 Gestational age: 33w3d Indications: pprom Interpretation: [...] AM CDT Non-Stress Test (NST) Oneida Luis [id number] 02/28/2021 Gestational age: 33w3d Indications: pprom Interpretation: [...] AM CDT Non-Stress Test (NST) Oneida Luis [id number] 02/28/2021 Gestational age: 33w3d Indications: pprom Interpretation: [...] OTHER INFORMATION Tami Cano RN Non-Stress Test [facility] Patient Name: Oneida Luis LMP: Patient's last menstrual period was 06/15/2020. Indications: PPROM NST date: 02/27/2021 NST duration: >20 mins Interpretation: Baseline: 135 beats/minute moderate variability Reactive Contractions: Uterine irritability Decelerations: none Impression and Plan: FWB reassuring, continue monitoring as scheduled. Luisana Ye MD 02/28/2021 8:52 AM Associated attestation - Fabrice Solis MD - 02/28/2021 9:28 AM CDT U PLATFORM ATTENDANT Attending: I have reviewed the images and [...] Interventions: None Mahsa Sawant RN Non-Stress Test [facility] Patient Name: Oneida Luis LMP: Patient's last menstrual period was 06/15/2020. Indications: PPROM NST date: 02/27/2021 NST duration: >20 mins Interpretation: Baseline: 150 beats/minute moderate variability Reactive Contractions: none Decelerations: none Impression and Plan: FWB reassuring, continue monitoring as scheduled. Luisana Ye MD 02/28/2021 8:52 AM Associated attestation - Fabrice Solis MD - 02/28/2021 9:28 AM CDT [facility] PLATFORM ATTENDANT Attending: I have reviewed the images and [...] Interventions: None Mahsa Sawant RN Non-Stress Test [facility] Patient Name: Oneida Luis LMP: Patient's last menstrual period was 06/15/2020. Indications: PPROM NST date: 02/27/2021 NST duration: >20 mins Interpretation: Baseline: 145 beats/minute moderate variability Reactive Contractions: none Decelerations: one shallow variable Impression and Plan: FWB reassuring, continue monitoring as scheduled. Luisana Ye MD 02/28/2021 8:51 AM Associated attestation - Fabrice Solis MD - 02/28/2021 9:29 AM CDT [facility] PLATFORM ATTENDANT Attending: I have reviewed the images and [...] OTHER INFORMATION Brittnee Esparza RN Non-Stress Test [facility] Patient Name: Oneida Luis LMP: Patient's last menstrual period was 06/15/2020. Indications: PPROM NST date: 02/26/21 - 02/27/2021 NST duration: >20 mins Interpretation: Baseline: 135 beats/minute moderate variability Reactive [employer]: with uterine irritability Decelerations: none Impression and Plan: FWB reassuring, continue monitoring as scheduled. Luisana Ye MD 02/27/2021 8:20 AM Associated attestation - Fabrice Solis MD - 02/27/2021 9:12 AM CDT U PLATFORM ATTENDANT Attending: I have reviewed the images and agree with the interpretation for the attached procedure. Fabrice Solis MD * Luisana Ye MD - 02/26/2021 6:58 PM CDT Name: Oneida Luis Date of : 1995 Today's Date: 02/26/2021 [id number] 33w1d NST RESULTS (REA) OBJECTIVE FINDINGS Temp: 98.1 ??F (36.7 ??C), Pulse: 77, Resp: 16, BP: 98/58 NST Indication(s): Premature rupture of membranes Uterine Irritability: Yes Contractions: Irregular Frequency: x2 Duration (sec) Range: 50 Perceived Intensity: Mild OBJECTIVE FINDINGS Movement: Present Monitoring Mode: External Baseline: 145 BPM Variability: Moderate Decelerations: None Accelerations: Yes OTHER INFORMATION Kari Hawley RN Non-Stress Test [facility] Patient Name: Oneida Luis LMP: Patient's last menstrual period was 06/15/2020. Indications: PPROM NST date: 02/26/21 NST duration: >20 mins Interpretation: Baseline: 145 beats/minute moderate variability Reactive Decelerations: None [employer]: with uterine irritability Impression and Plan: FWB reassuring, continue monitoring as scheduled. Luisana Ye MD 02/27/2021 8:20 AM Associated attestation - Fabrice Solis MD - 02/28/2021 10:13 AM CDT U PLATFORM ATTENDANT Attending: I have reviewed the images and agree with the interpretation for the attached procedure. Fabrice Solis MD * Kari Hawley RN - 02/26/2021 12:36 PM CDT Name: Oneida Luis Date of : 1995 Today's Date: 02/26/2021 [id number] 33w1d NST RESULTS (REA) OBJECTIVE FINDINGS Temp: [...] PM CDT Non-Stress Test (NST) Oneida Luis [id number] 02/26/2021 Gestational age: 33w1d Indications: pprom Interpretation: [...] AM CDT Non-Stress Test (NST) Oneida Luis [id number] 02/25/2021 Gestational age: 33w0d Indications: pprom Interpretation: [...] AM CDT Non-Stress Test (NST) Oneida Luis [id number] 02/25/2021 Gestational age: 33w0d Indications: pprom Interpretation: Baseline: 130 beats/minute reactive Variability: moderate Contractions: none Decelerations: none Recommendation: Follow up as clinically indicated. AMAURY Patterson * Phil Umana MD - 02/25/2021 6:57 AM CDT Non-Stress Test [facility] Patient Name: Oneida Luis LMP: Patient's last menstrual period was 06/15/2020. Indications: PPROM NST date: 02/24-06/2021 NST duration: >20 mins ([id number]) Interpretation: Baseline: 120 beats/minute mod variability Reactive Contractions: irregular Decelerations: none Impression and Plan: FWB reassuring, continue monitoring as scheduled. Phil Umana MD 02/25/2021 6:57 AM Associated attestation - Fabrice Solis MD - 02/25/2021 9:46 AM CDT U PLATFORM ATTENDANT Attending: I have reviewed the images and agree with the interpretation for the attached procedure. Fabrice Solis MD * Phil Umana MD - 02/24/2021 7:59 AM CDT Non-Stress Test [facility] Patient Name: Oneida Luis LMP: Patient's last menstrual period was 06/15/2020. Indications: PPROM NST date: 1095-3468 NST duration: >20 mins Interpretation: Baseline: 120 beats/minute mod variability Reactive Contractions: irregular Decelerations: one late appearing deceleration at 0550 Impression and Plan: FWB reassuring, continue monitoring as scheduled. Phil Umana MD 02/24/2021 7:59 AM Associated attestation - Fabrice Solis MD - 02/24/2021 10:26 AM CDT U PLATFORM ATTENDANT Attending: I have reviewed the images and agree with the interpretation for the attached procedure. Fabrice Solis MD documented in this encounter Consult Notes * Denise Rodriguez MSW - 03/05/2021 10:17 AM CDTAssociated Order(s): IP CONSULT TO ASSOCIATE FINANCIAL ANALYST SOCIAL SERVICE CONSULT - BRIEF Reason for Referral: Discharge planning for OB concerns CONSULT COMMENT: +UDS MJ Assessment/Interventions/Plan: corrections caseworkerDenise, received consult. SW received consult and met [...] please provide. Pt is an [place] resident. [place] does not accept referrals for +MJ screens alone. Infant to discharge home with mother when medically stable for discharge. SW to follow for infant cord tissue results. MAXWELL Armstrong [phone] PRN Merchandise Associate * Gemma Law RN - 03/01/2021 10:02 [...] can dwell up to 30 days per sewing machine operator plastic zipper's recommendation. Change dressing prn or at least weekly. * Denise Rodriguez MSW - 02/25/2021 4:01 PM CDTAssociated Order(s): IP CONSULT TO ASSOCIATE FINANCIAL ANALYST SOCIAL SERVICE CONSULT - BRIEF Reason for Referral: Pt would like help preparing for baby at home Assessment/Interventions/Plan: corrections caseworkerDenise, received consult and will follow up with [...] be in her hospital room. MAXWELL Armstrong [phone] PRN Merchandise Associate * Sabrina Hernandez MD - 02/23/2021 9:26 [...] 32w6d prematurity with mother at bedside including: NUT GRINDER/development - Discussed effects on feeding ability, poor [...] prolonged NICU stay, feeding support, transfer to [facility], morbidity and mortality. Patient expresses understanding. All [...] collect/label syringes. Ordered a breast pump from [facility] [facility] Insurance- Medicaid. Mom states she tried [...] - 15.6 gm/dL 03/05/2021 8:29 AM CDT [facility] Hematocrit 34.4(L) 35.9 - 45.5 % 03/05/2021 8:29 AM CDT [facility] Blood BLOOD SPECIMEN / Unknown Lab Venipuncture / Unknown 03/05/2021 7:14 AM CDT 03/05/2021 8:22 AM CDT Fabrice Solis MD LAB - HEMATOLOGY ORD ERABLES [facility] [address] [place] [address] * PATHOLOGY TISSUE EXAM (STL) (03/04/2021 11:16 PM CDT) Case Report Surgical Pathology Report ? Case: [id number] ? Authorizing Provider: ??Chelsie Astorga MD ?Collected: ? 03/04/2021 11:16 PM ? Ordering Location: ? [facility] 5 LDR ? Received: ?03/05/2021 08:34 AM ? Pathologist: ? Carline Sorto MD ? Specimen: ?Placenta 3rd Trimester ? 03/08/2021 11:28 AM [facility] Final Diagnosis Placenta, vaginal delivery - Small, hypermature placenta (weight <10th percentile for gestational age) - membranes with no histopathologic abnormality - Three-vessel umbilical cord with no histopathologic abnormality 03/08/2021 11:28 AM [facility] Clinical History The patient is a 25-year-old woman at 34 weeks, 0 days gestation, with premature rupture of membranes 02/13. Procedure/findings: vaginal delivery, baby to NICU. 03/08/2021 11:28 AM [facility] Gross Description The requisition and [...] red-morales, spongy cut surfaces with no lesions. Ship'S Cook sections submitted as follows: A1-umbilical cord and membrane roll, A2-placental disc central, A3-placental disc peripheral. LJ 03/08/2021 11:28 AM [facility] Microscopic Description Microscopic examination substantiates the above diagnosis. 03/08/2021 11:28 AM [facility] Disclaimer All histochemical and/or immunohistochemical results are interpreted with controls that demonstrate appropriate staining reactions before reporting results. Note on use of immunocytochemistry reagents: This test was developed and its performance characteristic determined by [facility], Department of Laboratory Medicine. It has [...] interpreted with caution. 03/08/2021 11:28 AM CDT [facility] Embedded Images 03/08/2021 11:28 AM CDT [facility] Pathology/Cytolo gy ENTIRE PLACENTA / Unknown Collection / Unknown 03/04/2021 11:16 PM CDT 03/05/2021 8:34 AM CDT Chelsie Astorga MD LAB - PATHOLOGY /CYTOLOGY ORDERABLES [facility] [address] [place] [address] * (ABNORMAL) BLOOD GASES CORD ARTERIAL (03/04/2021 10:52 PM CDT) pH Cord Arterial 7.30 7.20 - 7.34 pH 03/04/2021 11:04 PM CDT [facility] RESP THERAPY pCO2 Cord Arterial 62(H) 45 - 55 mm hg 03/04/2021 11:04 PM CDT [facility] RESP THERAPY Comment:H pO2 Cord Arterial 16 12 - 25 mm hg 03/04/2021 11:04 PM CDT [facility] RESP THERAPY HCO3 Cord Arterial 29.7(H) 22.0 - 24.0 mmol/L 03/04/2021 11:04 PM CDT [facility] RESP THERAPY Comment:H BE Cord Arterial 1.4 mmol/L 03/04/2021 11:04 PM CDT [facility] RESP THERAPY O2 Saturation Cord Arterial 18 % 03/04/2021 11:04 PM CDT [facility] RESP THERAPY Geronimo's Test N/A 03/04/2021 11:04 PM CDT [facility] RESP THERAPY Sample Site Other 03/04/2021 11:04 PM CDT [facility] RESP THERAPY Sample Type Cord blood Arterial 03/04/2021 11:04 PM CDT [facility] RESP THERAPY Oil Field Technician ID [id number] 03/04/2021 11:04 PM CDT [facility] RESP THERAPY Blood, arterial CORD BLOOD SPECIMEN / Unknown 03/04/2021 10:52 PM CDT 03/04/2021 10:52 PM CDT Chelsie Astorga MD LAB - BLOOD GAS ES ORDERABLES Performing Organization Address City/[facility]/ZIP Co de Phone Number [facility] [address] [phone] * (ABNORMAL) BLOOD GASES CORD NANCY (03/04/2021 [...] 03/04/2021 11:05 PM CDT [facility] Oil Field Technician ID [id number] 03/04/2021 11:05 PM CDT [facility] Blood CORD BLOOD SPECIMEN / Unknown 03/04/2021 10:52 PM CDT 03/04/2021 10:52 PM CDT Chelsie Astorga MD LAB - BLOOD GAS ES ORDERABLES Performing Organization Address City/[facility] Co de Phone Number [facility] [address] [place] [address] * (ABNORMAL) CBC W AUTO DIFFERENTIAL (03/04/2021 7:33 AM CDT) WBC 11.6(H) 4.4 - 10.7 x10E9/L 03/04/2021 7:45 AM CDT [facility] WBC Corrected 03/04/2021 7:45 AM CDT [facility] RBC 3.75(L) 3.80 - 5.20 x10E12/L 03/04/2021 7:45 AM CDT [facility] Hemoglobin 10.7(L) 12.0 - 15.6 gm/dL 03/04/2021 7:45 AM CDT [facility] Hematocrit 32.4(L) 35.9 - 45.5 % 03/04/2021 7:45 AM CDT [facility] MCV 86.4 80.7 - 98.3 fl 03/04/2021 7:45 AM CDT [facility] MCH 28.5 26.7 - 34.0 pg 03/04/2021 7:45 AM CDT [facility] MCHC 33.0 30.8 - 35.9 gm/dL 03/04/2021 7:45 AM CDT [facility] Platelet Count 251 153 - 416 x10E9/L 03/04/2021 7:45 AM CDT [facility] RDW-CV 15.8(H) 12.1 - 14.9 % 03/04/2021 7:45 AM CDT [facility] MPV 9.6 9.4 - 12.9 fl 03/04/2021 7:45 AM CDT [facility] Neutrophils % 64.1 44.0 - 73.0 % 03/04/2021 7:45 AM CDT [facility] Lymphocytes % 22.9 20.0 - 43.0 % 03/04/2021 7:45 AM CDT [facility] Monocytes % 9.7 5.0 - 13.0 % 03/04/2021 7:45 AM CDT [facility] Eosinophils % 2.1 0.0 - 6.0 % 03/04/2021 7:45 AM CDT [facility] Basophils % 0.3 0.0 - 2.0 % 03/04/2021 7:45 AM CDT [facility] Immature Granulocytes 0.9 0 - 1 % 03/04/2021 7:45 AM CDT [facility] Neutrophil Absolute 7.45(H) 2.01 - 7.14 x10E9/L 03/04/2021 7:45 AM CDT [facility] Lymphocytes Absolute 2.67 1.07 - 3.94 x10E9/L 03/04/2021 7:45 AM CDT [facility] Monocytes Absolute 1.13(H) 0.26 - 1.07 x10E9/L 03/04/2021 7:45 AM CDT [facility] Eosinophils Absolute 0.24 0 - 0.47 x10E9/L 03/04/2021 7:45 AM CDT [facility] Basophils Absolute 0.04 0 - 0.08 x10E9/L 03/04/2021 7:45 AM CDT [facility] Immature Granulocytes Absolute 0.11(H) 0.00 - 0.06 x10E9/L 03/04/2021 7:45 AM CDT [facility] nRBC Auto 0 /100 WBC 03/04/2021 7:45 AM CDT [facility] Blood BLOOD SPECIMEN / Unknown Venipuncture / Unknown 03/04/2021 7:33 AM CDT 03/04/2021 7:38 AM CDT Fabrice Solis MD LAB - HEMATOLOGY ORD ERABLES Performing Organization Address City/[facility]/ZIP Co de Phone Number [facility] [address] [place] [address] * TYPE + SCREEN PANEL (03/04/2021 7:33 AM CDT) ABO Rh B POS 03/04/2021 8:20 AM CDT [facility] Comment:History checked. Antibody Screen NEG 8:20 AM CDT [facility] Blood Bank BLOOD SPECIMEN / Unknown Venipuncture / Unknown 03/04/2021 7:33 AM CDT 03/04/2021 7:38 AM CDT Fabrice Solis MD LAB - BLOOD BANK ORD ERABLES [facility] [address] [place] [address] * NON-STRESS TEST (03/03/2021 11:32 PM CDT) [...] INFORMATION Marion Blue RN Fabrice Solis MD [facility] ORDERABLES * NON-STRESS TEST (03/03/2021 6:15 [...] INFORMATION Grisel Pereira RN Fabrice Solis MD [facility] ORDERABLES * NON-STRESS TEST (03/03/2021 11:51 [...] INFORMATION Grisel Pereira RN Fabrice Solis MD [facility] ORDERABLES * NON-STRESS TEST (03/03/2021 12:42 [...] INFORMATION Marion Blue RN Fabrice Solis MD [facility] ORDERABLES * NON-STRESS TEST (03/01/2021 11:52 [...] 130 bpm, moderate variability, reactive, no decelerations [employer]: irritable, no contractions A/P: well-being reassuring, continue testing as ordered or as otherwise indicated Buffy Collado MD 03/02/2021 7:45 AM Fabrice Solis MD [facility] ORDERABLES * NON-STRESS TEST (02/28/2021 6:00 [...] None Mahsa Sawant RN Fabrice Solis MD [facility] ORDERABLES * NON-STRESS TEST (02/27/2021 11:26 [...] OTHER INFORMATION Tami Cano RN Non-Stress Test [facility] Patient Name: Oneida Luis LMP: Patient's last [...] Interventions: None Mahsa Sawant RN Non-Stress Test [facility] Patient Name: Oneida Luis LMP: Patient's last menstrual period was 06/15/2020. Indications: PPROM NST date: 02/27/2021 NST duration: >20 mins Interpretation: Baseline: ??150 beats/minute moderate variability Reactive Contractions: ??none Decelerations: ??none Impression and Plan: FWB reassuring, continue monitoring as scheduled. Luisana Ye MD 02/28/2021 8:52 AM Fabrice Solis MD [facility] ORDERABLES * NON-STRESS TEST (02/27/2021 6:42 [...] Interventions: None Mahsa Sawant RN Non-Stress Test [facility] Patient Name: Oneida Luis LMP: Patient's last menstrual period was 06/15/2020. Indications: PPROM NST date: 02/27/2021 NST duration: >20 mins Interpretation: Baseline: ??145 beats/minute moderate variability Reactive Contractions: ??none Decelerations: one shallow variable Impression and Plan: FWB reassuring, continue monitoring as scheduled. Luisana Ye MD 02/28/2021 8:51 AM Fabrice Solis MD [facility] ORDERABLES * (ABNORMAL) IRON + TRANSFERRIN PANEL (02/26/2021 3:14 PM CDT) Pathologist [facility] Iron 43(L) 50 - 170 ug/dL 02/26/2021 3:44 PM CDT [facility] Comment:Attention clinician: Reference Range change. Transferrin 399(H) 180 - 382 mg/dL 02/26/2021 3:44 PM CDT [facility] Comment:Attention clinician: Reference Range change. TIBC Calculated 499(H) 240 - 450 ug/dL 02/26/2021 3:44 PM CDT [facility] Iron Saturation % 9(L) 20 - 50 % 02/26/2021 3:44 PM CDT [facility] Blood BLOOD SPECIMEN / Unknown Venipuncture / Unknown 02/26/2021 3:14 PM CDT 02/26/2021 3:25 PM CDT Hali Tomas APRN-CUSTOMER [facility] - CARE NURSE RN RY ORDERABLES [facility] [address] [place] [address] * FERRITIN (02/26/2021 3:14 PM CDT) [facility] Ferritin 7 5 - 204 ng/mL 02/26/2021 4:12 PM CDT [facility] Blood BLOOD SPECIMEN / Unknown Venipuncture / Unknown 02/26/2021 3:14 PM CDT 02/26/2021 3:25 PM CDT Hali Tomas TOSHIA-CUSTOMER [facility] - CARE NURSE RN RY ORDERABLES Performing Organization Address [facility] Co de Phone Number [facility] [address] [place] [address] * TYPE + SCREEN PANEL (02/26/2021 3:14 PM CDT) Pathologist [facility] ABO Rh B POS 02/26/2021 4:55 PM CDT [facility] Comment:History checked. Antibody Screen NEG 4:55 PM CDT [facility] Blood Bank BLOOD SPECIMEN / Unknown Venipuncture / Unknown 02/26/2021 3:14 PM CDT 02/26/2021 3:25 PM CDT Hali Tomas TOSHIA-CUSTOMER LIAISON LAB - BLOOD B ANK ORDERABLES Performing Organization Address [facility] de Phone Number [facility] [address] [place] [address] * (ABNORMAL) CBC W AUTO DIFFERENTIAL (02/26/2021 3:14 PM CDT) Pathologist [facility] WBC 10.1 4.4 - 10.7 x10E9/L 02/26/2021 3:32 PM CDT [facility] WBC Corrected 02/26/2021 3:32 PM CDT [facility] RBC 3.96 3.80 - 5.20 x10E12/L 02/26/2021 3:32 PM CDT [facility] Hemoglobin 11.3(L) 12.0 - 15.6 gm/dL 02/26/2021 3:32 PM CDT [facility] Hematocrit 34.9(L) 35.9 - 45.5 % 02/26/2021 3:32 PM CDT [facility] MCV 88.1 80.7 - 98.3 fl 02/26/2021 3:32 PM CDT [facility] MCH 28.5 26.7 - 34.0 pg 02/26/2021 3:32 PM CDT [facility] MCHC 32.4 30.8 - 35.9 gm/dL 02/26/2021 3:32 PM CDT [facility] Platelet Count 271 153 - 416 x10E9/L 02/26/2021 3:32 PM CDT [facility] RDW-CV 15.7(H) 12.1 - 14.9 % 02/26/2021 3:32 PM CDT [facility] MPV 9.7 9.4 - 12.9 fl 02/26/2021 3:32 PM CDT [facility] Neutrophils % 64.7 44.0 - 73.0 % 02/26/2021 3:32 PM CDT [facility] Lymphocytes % 23.4 20.0 - 43.0 % 02/26/2021 3:32 PM CDT [facility] Monocytes % 10.0 5.0 - 13.0 % 02/26/2021 3:32 PM CDT [facility] Eosinophils % 0.9 0.0 - 6.0 % 02/26/2021 3:32 PM CDT [facility] Basophils % 0.1 0.0 - 2.0 % 02/26/2021 3:32 PM CDT [facility] Immature Granulocytes 0.9 0 - 1 % 02/26/2021 3:32 PM CDT [facility] Neutrophil Absolute 6.57 2.01 - 7.14 x10E9/L 02/26/2021 3:32 PM CDT [facility] Lymphocytes Absolute 2.37 1.07 - 3.94 x10E9/L 02/26/2021 3:32 PM CDT [facility] Monocytes Absolute 1.01 0.26 - 1.07 x10E9/L 02/26/2021 3:32 PM CDT [facility] Eosinophils Absolute 0.09 0 - 0.47 x10E9/L 02/26/2021 3:32 PM CDT [facility] Basophils Absolute 0.01 0 - 0.08 x10E9/L 02/26/2021 3:32 PM CDT [facility] Immature Granulocytes Absolute 0.09(H) 0.00 - 0.06 x10E9/L 02/26/2021 3:32 PM CDT [facility] nRBC Auto 0 /100 WBC 02/26/2021 3:32 PM CDT [facility] Blood BLOOD SPECIMEN / Unknown Venipuncture / Unknown 02/26/2021 3:14 PM CDT 02/26/2021 3:25 PM CDT Hali Tomas COMMERCIAL DEVELOPMENT MANAGER-CUSTOMER [facility] - HEMATOL OGY ORDERABLES Performing Organization Address [facility]/State/[facility] Co de Phone Number [facility] [address] [place] [address] * SONOGRAM - COMPLETE (02/24/2021 9:45 AM CDT) Anatomical Region Laterality Modality Other 02/24/2021 9:45 AM CDT Narrative 02/24/2021 11:55 AM CDT ?[facility] ? - [place] [facility] ?PHONE: ??FAX: Pat. Name: ?ONEIDA LUIS. No: ?[id number] Study Date: ?? 02/24/2021 ??9:45am , Age: ? 1995, 25 Pregnancies: ?? 5, Para 3, Ab 1 Height: ? 65 in Weight: ? 166 lb LMP: ?Unknown GA by Base: ?? 32w6d ?? SRINIVASA: 04/15/2021 GA by US: ? 33w1d ?? SRINIVASA: 04/13/2021 GA Selected: ??32w6d (From [facility]) SRINIVASA: ?04/15/2021 Referring MD: Junie Brizuela MD Circular Saw Edge Fuser: ??April Hernandez, RDMS, RDCS CPT4: ? 02566 BMI: ?27.62 Room: ? 540 Hist/Ind: ? Unknown LMP ?Hx ?EIF ?PPROM MEASUREMENTS & AGE ? GROWTH EVALUATION Measurement ??GA ? Range ? Srce %for GA Ratios ----- ---- ------- BPD ??8.4 cm 33w6d (82i0p-44v5b) Hadl BPD 71% FL/BPD 0.71 (0.71 - 0.87* HC ??30.7 cm 34w1d (82o4o-03w6s) Hadl HC ??49% FL/AC ??0.20 (0.20 - 0.24) AC ??29.7 cm 33w5d (36e4h-64z0h) Hadl AC ??74% HC/AC ??1.03 (0.95 - 1.14) FL ?? 6.0 cm 31w0d (13g8h-94x7k) Hadl FL ??5% CI ? 0.77 (0.70 - 0.86) HL ?? 5.2 cm 30w1d (41d8q-52l4p) Cyril HL ??6% GA for sonogram 33w1d (28s3r-42p7k) ?? Weight Estimate: based on (BPD,HC,AC,FL) Avg [...] ?<Electronic Signature> ??02/24/2021 11:55am Fabrice Solis MD [facility] ORDERABLES * (ABNORMAL) MAGNESIUM BLOOD (02/24/2021 1:45 AM CDT) [facility] Magnesium 6.0(HH) 1.6 - 2.6 mg/dL 02/24/2021 2:30 AM CDT [facility] Blood BLOOD SPECIMEN / Unknown Lab Venipuncture / Unknown 02/24/2021 1:45 AM CDT 02/24/2021 1:59 AM CDT Fabrice Solis MD LAB - CHEMISTRY YIMI MACIAS [facility] [address] [phone] * (ABNORMAL) FIBRINOGEN ACTIVITY (02/24/2021 1:45 AM CDT) Fibrinogen 418(H) 200 - 400 mg/dL 02/24/2021 2:13 AM CDT [facility] Blood BLOOD SPECIMEN / Unknown Lab Venipuncture / Unknown 02/24/2021 1:45 AM CDT 02/24/2021 1:59 AM CDT Fabrice Solis MD LAB - COAGULATION OR DERABLES Performing Organization Address [facility] de Phone Number [facility] [address] [place] [phone] * PTT (02/24/2021 1:45 AM CDT) Pathologist [facility] PTT 23.9 23.0 - 38.4 sec 02/24/2021 2:12 AM CDT [facility] Blood BLOOD SPECIMEN / Unknown Lab Venipuncture / Unknown 02/24/2021 1:45 AM CDT 02/24/2021 1:59 AM CDT Narrative [facility] - 02/24/2021 2:12 AM CDT Heparin Therapeutic Range for PTT: ??71.0 - 109.0 seconds. Fabrice Solis MD LAB - COAGULATION OR DERABLES Performing Organization Address [facility] de Phone Number [facility] [address] [place] [phone] * PT-INR (02/24/2021 1:45 AM CDT) Pathologist [facility] PT 13.3 12.1 - 14.8 sec 02/24/2021 2:11 AM CDT [facility] INR 1.0 0.9 - 1.1 02/24/2021 2:11 AM CDT [facility] Blood BLOOD SPECIMEN / Unknown Lab Venipuncture / Unknown 02/24/2021 1:45 AM CDT 02/24/2021 1:59 AM CDT Narrative [facility] - 02/24/2021 2:11 AM CDT Conventional Warfarin Anticoagulant Therapy: INR Reference Range: ??2.0-3.0 Intensive Warfarin Anticoagulant Therapy: INR Reference Range: ? 2.5-3.5 Fabrice Solis MD LAB - COAGULATION OR DERABLES Performing Organization Address City/State/[facility] Co de Phone Number [facility] [address] [place], [place] [id number] * (ABNORMAL) CBC W AUTO DIFFERENTIAL (02/24/2021 1:45 AM CDT) WBC 10.5 4.4 - 10.7 x10E9/L 02/24/2021 2:04 AM CDT [facility] WBC Corrected 02/24/2021 2:04 AM CDT [facility] RBC 3.65(L) 3.80 - 5.20 x10E12/L 02/24/2021 2:04 AM CDT [facility] Hemoglobin 10.3(L) 12.0 - 15.6 gm/dL 02/24/2021 2:04 AM CDT [facility] Hematocrit 31.6(L) 35.9 - 45.5 % 02/24/2021 2:04 AM CDT [facility] MCV 86.6 80.7 - 98.3 fl 02/24/2021 2:04 AM CDT [facility] MCH 28.2 26.7 - 34.0 pg 02/24/2021 2:04 AM CDT [facility] MCHC 32.6 30.8 - 35.9 gm/dL 02/24/2021 2:04 AM CDT [facility] Platelet Count 246 153 - 416 x10E9/L 02/24/2021 2:04 AM CDT [facility] RDW-CV 15.0(H) 12.1 - 14.9 % 02/24/2021 2:04 AM CDT [facility] MPV 9.7 9.4 - 12.9 fl 02/24/2021 2:04 AM CDT [facility] Neutrophils % 86.9(H) 44.0 - 73.0 % 02/24/2021 2:04 AM CDT [facility] Lymphocytes % 10.6(L) 20.0 - 43.0 % 02/24/2021 2:04 AM CDT [facility] Monocytes % 1.9(L) 5.0 - 13.0 % 02/24/2021 2:04 AM CDT [facility] Eosinophils % 0.0 0.0 - 6.0 % 02/24/2021 2:04 AM CDT [facility] Basophils % 0.0 0.0 - 2.0 % 02/24/2021 2:04 AM CDT [facility] Immature Granulocytes 0.6 0 - 1 % 02/24/2021 2:04 AM CDT [facility] Neutrophil Absolute 9.14(H) 2.01 - 7.14 x10E9/L 02/24/2021 2:04 AM CDT [facility] Lymphocytes Absolute 1.12 1.07 - 3.94 x10E9/L 02/24/2021 2:04 AM CDT [facility] Monocytes Absolute 0.20(L) 0.26 - 1.07 x10E9/L 02/24/2021 2:04 AM CDT [facility] Eosinophils Absolute 0.00 0 - 0.47 x10E9/L 02/24/2021 2:04 AM CDT [facility] Basophils Absolute 0.00 0 - 0.08 x10E9/L 02/24/2021 2:04 AM CDT [facility] Immature Granulocytes Absolute 0.06 0.00 - 0.06 x10E9/L 02/24/2021 2:04 AM CDT [facility] nRBC Auto 0 /100 WBC 02/24/2021 2:04 AM CDT [facility] Blood BLOOD SPECIMEN / Unknown Lab Venipuncture / Unknown 02/24/2021 1:45 AM CDT 02/24/2021 1:59 AM CDT Fabrice Solsi MD LAB - HEMATOLOGY ORD ERABLES [facility] [address] [place] [address] * (ABNORMAL) DRUG SCREEN TOX URINE PANEL (02/23/2021 6:23 PM CDT) [facility] Amphetamines Screen Urine Not detected Not detected 02/23/2021 7:09 PM CDT [facility] Barbiturates Screen Urine Not detected Not detected 02/23/2021 7:09 PM CDT [facility] Benzodiazepines Screen Urine Not detected Not detected 02/23/2021 7:09 PM CDT [facility] Cannabinoids Screen Urine Detected(A) Not detected 02/23/2021 7:09 PM CDT [facility] Cocaine Screen Urine Not detected Not detected 02/23/2021 7:09 PM CDT [facility] Fentanyl Urine Not detected Not detected 02/23/2021 7:09 PM CDT [facility] Methadone Screen Urine Not detected Not detected 02/23/2021 7:09 PM CDT [facility] Opiate Screen Urine Not detected Not detected 02/23/2021 7:09 PM CDT [facility] Phencyclidine Screen Urine Not detected Not detected 02/23/2021 7:09 PM CDT [facility] Urine URINE / Unknown Collection / Unknown 02/23/2021 6:23 PM CDT 02/23/2021 6:39 PM CDT [facility] - 02/23/2021 7:09 PM CDT This [...] MD LAB - URINE CHEMISTR Y ORDERABLES [facility] [address] [place], [place] [id number] * TRICHOMONAS RAPID TEST (02/23/2021 6:22 PM CDT) Trichomonas Rapid Test Negative Negative 02/23/2021 7:05 PM CDT [facility] Microbiology VAGINAL SWAB / Unknown Collection / Unknown 02/23/2021 6:22 PM CDT 02/23/2021 6:39 PM CDT Fabrice Solis MD LAB - MICROBIOLOGY O RDERABLES Performing Organization Address [facility] Co de Phone Number [facility] [address] [place] [phone] * CHLAMYDIA + GC AMPLIFIED PROBE (STL) (02/23/2021 6:22 PM CDT) Chlamydia Amplified Probe Negative Negative 02/24/2021 5:54 AM CDT [facility] GC Amplified Probe Negative Negative 02/24/2021 5:54 AM CDT [facility] Microbiology PART OF UTERINE CERVIX / Unknown Collection / Unknown 02/23/2021 6:22 PM CDT 02/23/2021 6:39 PM CDT Narrative [facility] - 02/24/2021 5:54 AM CDT Results based on detection/no detection of ribosomal RNA by amplified method. Fabrice Solis MD LAB - MICROBIOLOGY O RDERABLES Performing Organization Address [facility] Co de Phone Number [facility] [address] [phone] * BLOOD TYPE VERIFICATION (02/23/2021 6:21 PM CDT) ABO Rh B POS 02/23/2021 7:0 4 PM CDT [facility] BLOOD BANK LAB Blood Bank BLOOD SPECIMEN / Unknown Venipuncture / Unknown 02/23/2021 6:21 PM CDT 02/23/2021 6:33 PM CDT Fabrice Solis MD LAB - BLOOD BANK ORD ERABLES Performing Organization Address City/[facility] Co de Phone Number [facility] BLOOD BANK LAB [address] [place] [id number], [facility] [phone] * CULTURE STREP B (02/23/2021 6:20 PM CDT) Culture Strep B Negative for beta-hemolytic Streptococcus Group B ARTIE 02/27/2021 5:36 AM CDT [facility] MICROBIOLOGY Microbiology MISCELLANEOUS SAMPLES / Unknown Collection / Unknown 02/23/2021 6:20 PM CDT 02/23/2021 6:39 PM CDT Fabrice Solis MD LAB - MICROBIOLOGY O RDERABLES Performing Organization Address [facility]/ZIP Co de Phone Number [facility] MICROBIOLOGY [address] [phone] * (ABNORMAL) RUPTURE OF MEMBRANES EVAL (02/23/2021 5:35 PM CDT) RUPTURE OF MEMBRANES POSITIVE(A ) NEGATIVE 02/23/2021 5:47 PM CDT [facility] Fluid VAGINAL SWAB / Unknown Collection / Unknown 02/23/2021 5:35 PM CDT 02/23/2021 5:38 PM CDT Narrative [facility] - 02/23/2021 5:47 PM CDT A [...] BODY FLUID ORD ERABLES Performing Organization Address City/[facility]/ZIP Co de Phone Number [facility] [address] [place] [address] * (ABNORMAL) CBC W AUTO DIFFERENTIAL (02/23/2021 [...] - 416 x10E9/L 02/23/2021 5:52 PM CDT [facility] RDW-CV 15.3(H) 12.1 - 14.9 % 02/23/2021 5:52 PM CDT [facility] MPV 10.4 9.4 - 12.9 fl 02/23/2021 5:52 PM CDT [facility] Neutrophils % 89.5(H) 44.0 - 73.0 % 02/23/2021 5:52 PM CDT [facility] Lymphocytes % 8.4(L) 20.0 - 43.0 % 02/23/2021 5:52 PM CDT [facility] Monocytes % 1.3(L) 5.0 - 13.0 % 02/23/2021 5:52 PM CDT [facility] Eosinophils % 0.1 0.0 - 6.0 % 02/23/2021 5:52 PM CDT [facility] Basophils % 0.1 0.0 - 2.0 % 02/23/2021 5:52 PM CDT [facility] Immature Granulocytes 0.6 0 - 1 % 02/23/2021 5:52 PM CDT [facility] Neutrophil Absolute 12.02(H) 2.01 - 7.14 x10E9/L 02/23/2021 5:52 PM CDT [facility] Lymphocytes Absolute 1.13 1.07 - 3.94 x10E9/L 02/23/2021 5:52 PM CDT [facility] Monocytes Absolute 0.17(L) 0.26 - 1.07 x10E9/L 02/23/2021 5:52 PM CDT [facility] Eosinophils Absolute 0.02 0 - 0.47 x10E9/L 02/23/2021 5:52 PM CDT [facility] Basophils Absolute 0.02 0 - 0.08 x10E9/L 02/23/2021 5:52 PM CDT [facility] Immature Granulocytes Absolute 0.08(H) 0.00 - 0.06 x10E9/L 02/23/2021 5:52 PM CDT [facility] nRBC Auto 0 /100 WBC 02/23/2021 5:52 PM CDT [facility] Blood BLOOD SPECIMEN / Unknown Lab Venipuncture / Unknown 02/23/2021 4:53 PM CDT 02/23/2021 5:47 PM CDT Fabrice Solis MD LAB - HEMATOLOGY ORD ERABLES [facility] [address] [place] [address] * TYPE + SCREEN PANEL (02/23/2021 4:53 PM CDT) ABO Rh B POS 02/23/2021 6:28 PM CDT [facility] Comment:No history; collect retype. Antibody Screen NEG 6:28 PM CDT [facility] Blood Bank BLOOD SPECIMEN / Unknown Lab Venipuncture / Unknown 02/23/2021 4:53 PM CDT 02/23/2021 5:47 PM CDT Fabrice Solis MD LAB - BLOOD BANK ORD ERABLES [facility] [address] [place] [address], [facility] [phone] documented in this encounter Visit Diagnoses Diagnosis [...] membranes (PPROM) with unknown onset of labor ([facility]) Hx of section Other postprocedural status [...] ultrasound to assess interval growth of fetus ([facility]) documented in this encounter Administered Medications [...]
--- OUTSIDE RECORDS SUMMARY | 2024-10-17 11:53 | XMS_ITS | Clinical Summary ---
Author Organization [facility] Address [address] [place] [address] Care Team Providers Care Rn Building Name Role Phone Unavailable Primary Care Provider Unavailabl e Source Comments [facility],non-owned Affiliates and Associated Physician Practices is amultiple site organization consisting of ambulatory clinics and hospital sitesin [place], [place], [place] and [place]. This disclosure is being madepursuant to the Care Everywhere program and may not contain all information available regarding this patient. Last updated 18.[facility] [employer] Allergies Active Allergy Reactions Criticality Noted Date [...]
--- OUTSIDE RECORDS SUMMARY | 2024-10-17 11:53 | XMS_ITS | Encounter Summary ---
Author Organization [facility] Address [address] [place] [address] Care Team Providers Care Asbestos Shingle Roofer Name Role Phone Unavailable Primary Care Provider Unavailabl e Reason for Visit * Reason Comments Ultrasound Encounter Details Date Type Department Care Team (Latest Contact Info) Description 01/06/2021 10:06 AM DATA CONSULTANT - 01/06/2021 11:59 PM DATA CONSULTANT Hospital Encounter [facility] [address] [place] [address] Tima Bejarano MD Discharge Disposition: Home or [...] - COMPLETE Routine 01/06/2021 1 0:14 AM DATA CONSULTANT [facility] (HCC) Encounter for ultrasound (HCC) Hx of section documented in this encounter Results * SONOGRAM - COMPLETE (01/06/2021 10:14 AM DATA CONSULTANT) Anatomical Region Laterality Modality Other 01/06/2021 10:1 4 AM DATA CONSULTANT Narrative 01/06/2021 11:11 AM DATA CONSULTANT ? - [facility] ? [facility] ?PHONE: ??FAX: ? Pat. Name: ?HANNAH PYLE Pat. No: ?[id number] Study Date: ?? 01/06/2021 ??10:14am , Age: ? 1995, 25 Pregnancies: ?? 5, Para 3, Ab 1 Height: ? 65 in Weight: ? 166 lb LMP: ?Unknown GA by Base: ?? 25w6d ?? SRINIVASA: 04/15/2021 GA by US: ? 25w6d ?? SRINIVASA: 04/15/2021 GA Selected: ??25w6d (From [facility]) SRINIVASA: ?04/15/2021 Referring MD: Junie Brizuela MD Mobile Sales Technician: ??Suha Downey RDMS CPT4: ? 33677 BMI: ?27.62 Hist/Ind: ? Unknown LMP ?Hx MEASUREMENTS & AGE ? GROWTH EVALUATION Measurement ??GA ? Range ? Srce %for GA Ratios ----- ---- ------- BPD ??6.6 cm 26w4d (57g6e-26a6c) Hadl BPD 63% FL/BPD 0.71 (0.71 - 0.87) HC ??24.1 cm 26w1d (82m2c-70k8q) Hadl HC ??35% FL/AC ??0.21 (0.20 - 0.24) AC ??22.6 cm 27w0d (83k6b-79p1u) Hadl AC ??74% HC/AC ??1.07 (1.01 - 1.20) FL ?? 4.7 cm 25w4d (10t0z-74n3g) Hadl FL ??28% CI ? 0.77 (0.70 - 0.86) HL ?? 4.5 cm 26w5d (88e5h-58a2f) Cyril HL ??64% Cere 3.0 cm 26w3d (20w5s-43q0y) Hill Cere64% NB ?? 0.8 cm ? (63z2j-34z6q) Sone NB ??28% GA for sonogram 25w6d (96r1q-34e3z) ?? Weight Estimate: based on (BPD,HC,AC,FL) Hadlock [...] <Electronic Signature> ??01/06/2021 11:10am Tima Bejarano MD [facility] ORDERABLES documented in this encounter Visit Diagnoses Diagnosis Fifth (HCC) state, incidental Encounter for ultrasound ([facility]) Encounter for routine screening for malformation using ultrasonics Hx of section Other postprocedural status Herpes Herpes simplex without mention of complication Encounter for screening for uncertain dates (HCC) 25 weeks gestation of (HCC) state, incidental documented in this encounter
--- OUTSIDE RECORDS SUMMARY | 2024-10-17 11:53 | XMS_ITS | Patient Health Summary ---
Author Organization [facility] Address [address] [place] [address] Care Team Providers Care Health Care Manager Name Role Phone Unavailable Primary Care Provider Unavailabl e Note from [facility],non-owned Affiliates and Associated Physician Practices is amultiple site organization consisting of ambulatory clinics and hospital sitesin [place], [place], [place] and [place]. This disclosure is being madepursuant to the Care Everywhere program and may not contain all information available regarding this patient. Last updated 18.[facility] [place] [facility] Allergies * Amoxicillin(Rash) -Medium Criticality Medications [...] HCT PANEL (03/05/2021 7:14 AM CDT) Pathologist [facility] Hemoglobin 11.1(L) 12.0 - 15.6 gm/dL 03/05/2021 8:29 AM CDT [facility] Hematocrit 34.4(L) 35.9 - 45.5 % 03/05/2021 8:29 AM CDT [facility] Blood BLOOD SPECIMEN / Unknown Lab Venipuncture / Unknown 03/05/2021 7:14 AM CDT 03/05/2021 8:22 AM CDT Fabrice Solis MD LAB - HEMATOLOGY ORD ERABLES [facility] [address] [place] [address] * PATHOLOGY TISSUE EXAM (STL) (03/04/2021 11:16 PM CDT) Pathologist [facility] Case Report Surgical Pathology Report ? Case: [id number] ? Authorizing Provider: ??Chelsie Astorga MD ?Collected: ? 03/04/2021 11:16 PM ? Ordering Location: ? [facility] 5 R ? Received: ?03/05/2021 08:34 AM ? Pathologist: ? Carline Sorto MD ? Specimen: ?Placenta 3rd Trimester ? 03/08/2021 11:28 AM [facility] Final Diagnosis Placenta, vaginal delivery - Small, hypermature placenta (weight <10th percentile for gestational age) - membranes with no histopathologic abnormality - Three-vessel umbilical cord with no histopathologic abnormality 03/08/2021 11:28 AM [facility] Clinical History The patient is a 25-year-old woman at 34 weeks, 0 days gestation, with premature rupture of membranes 02/13. Procedure/findings: vaginal delivery, baby to NICU. 03/08/2021 11:28 AM [facility] Gross Description The requisition and [...] red-morales, spongy cut surfaces with no lesions. Packaging Supervisor sections submitted as follows: A1-umbilical cord and membrane roll, A2-placental disc central, A3-placental disc peripheral. LJ 03/08/2021 11:28 AM [facility] Microscopic Description Microscopic examination substantiates the above diagnosis. 03/08/2021 11:28 AM [facility] Disclaimer All histochemical and/or immunohistochemical results are interpreted with controls that demonstrate appropriate staining reactions before reporting results. Note on use of immunocytochemistry reagents: This test was developed and its performance characteristic determined by [facility], Department of Laboratory Medicine. It has [...] interpreted with caution. 03/08/2021 11:28 AM CDT [facility] Embedded Images 03/08/2021 11:28 AM CDT [facility] Pathology/Cytolo gy ENTIRE PLACENTA / Unknown Collection / Unknown 03/04/2021 11:16 PM CDT 03/05/2021 8:34 AM CDT Chelsie Astorga MD LAB - PATHOLOGY /CYTOLOGY ORDERABLES [facility] [address] [place] [phone] * (ABNORMAL) BLOOD GASES CORD ARTERIAL (03/04/2021 [...] 03/04/2021 11:04 PM CDT [facility] RESP THERAPY Custodial Worker ID [id number] 03/04/2021 11:04 PM CDT [facility] Blood, arterial CORD BLOOD SPECIMEN / Unknown 03/04/2021 10:52 PM CDT 03/04/2021 10:52 PM CDT Chelsie Astorga MD LAB - BLOOD GAS ES ORDERABLES [facility] [address] [place] [address] * (ABNORMAL) BLOOD GASES CORD NANCY (03/04/2021 [...] 03/04/2021 11:05 PM CDT [facility] RESP THERAPY Custodial Worker ID [id number] 03/04/2021 11:05 PM CDT [facility] Blood CORD BLOOD SPECIMEN / Unknown 03/04/2021 10:52 PM CDT 03/04/2021 10:52 PM CDT Chelsie Astorga MD LAB - BLOOD GAS ES ORDERABLES [facility] [address] [place] [address], [facility] [phone] * EPIDURAL BLOCK PERF (03/04/2021 4:08 PM CDT) Narrative Sharifa Alvarado APRN-LADLE BUILDER - 03/04/2021 4:08 PM CDT Sharifa Alvarado APRN-LADLE BUILDER ? 03/04/2021 ??4:09 PM Neuraxial Block Note [...] ??2 Staff: ?? Anesthesia Provider: ??Sharifa Alvarado, PASSENGER CAR CONDUCTOR-LADLE BUILDER ?? - ?? performed the procedure Trent Phillips MD [facility]ESTHESIA ORDERABLES * TYPE + SCREEN PANEL (03/04/2021 7:33 AM CDT) Only the most recent of3 resultswithin the time period is included. Pathologist [facility] ABO Rh B POS 03/04/2021 8:20 AM CDT [facility] Comment:History checked. Antibody Screen NEG 8:20 AM CDT [facility] Blood Bank BLOOD SPECIMEN / Unknown Venipuncture / Unknown 03/04/2021 7:33 AM CDT 03/04/2021 7:38 AM CDT Fabrice Solis MD LAB - BLOOD BANK ORD ERABLES [facility] [address] [place] [address], [facility] [phone] * (ABNORMAL) CBC W AUTO DIFFERENTIAL (03/04/2021 7:33 AM CDT) Only the most recent of4 resultswithin the time period is included. WBC 11.6(H) 4.4 - 10.7 x10E9/L 03/04/2021 7:45 AM CDT [facility] WBC Corrected 03/04/2021 7:45 AM CDT [facility] RBC 3.75(L) 3.80 - 5.20 x10E12/L 03/04/2021 7:45 AM CDT [facility] Hemoglobin 10.7(L) 12.0 - 15.6 gm/dL 03/04/2021 7:45 AM CDT [facility] Hematocrit 32.4(L) 35.9 - 45.5 % 03/04/2021 7:45 AM CDT [facility] MCV 86.4 80.7 - 98.3 fl 03/04/2021 7:45 AM CDT [facility] MCH 28.5 26.7 - 34.0 pg 03/04/2021 7:45 AM CDT [facility] MCHC 33.0 30.8 - 35.9 gm/dL 03/04/2021 7:45 AM CDT [facility] Platelet Count 251 153 - 416 x10E9/L 03/04/2021 7:45 AM CDT [facility] RDW-CV 15.8(H) 12.1 - 14.9 % 03/04/2021 7:45 AM CDT [facility] MPV 9.6 9.4 - 12.9 fl 03/04/2021 7:45 AM CDT [facility] Neutrophils % 64.1 44.0 - 73.0 % 03/04/2021 7:45 AM CDT [facility] Lymphocytes % 22.9 20.0 - 43.0 % 03/04/2021 7:45 AM CDT [facility] Monocytes % 9.7 5.0 - 13.0 % 03/04/2021 7:45 AM CDT [facility] Eosinophils % 2.1 0.0 - 6.0 % 03/04/2021 7:45 AM CDT [facility] Basophils % 0.3 0.0 - 2.0 % 03/04/2021 7:45 AM CDT [facility] Immature Granulocytes 0.9 0 - 1 % 03/04/2021 7:45 AM CDT [facility] Neutrophil Absolute 7.45(H) 2.01 - 7.14 x10E9/L 03/04/2021 7:45 AM CDT [facility] Lymphocytes Absolute 2.67 1.07 - 3.94 x10E9/L 03/04/2021 7:45 AM CDT [facility] Monocytes Absolute 1.13(H) 0.26 - 1.07 x10E9/L 03/04/2021 7:45 AM CDT [facility] Eosinophils Absolute 0.24 0 - 0.47 x10E9/L 03/04/2021 7:45 AM CDT [facility] Basophils Absolute 0.04 0 - 0.08 x10E9/L 03/04/2021 7:45 AM CDT [facility] Immature Granulocytes Absolute 0.11(H) 0.00 - 0.06 x10E9/L 03/04/2021 7:45 AM CDT [facility] nRBC Auto 0 /100 WBC 03/04/2021 7:45 AM CDT [facility] Blood BLOOD SPECIMEN / Unknown Venipuncture / Unknown 03/04/2021 7:33 AM CDT 03/04/2021 7:38 AM CDT Fabrice Solis MD LAB - HEMATOLOGY ORD ERABLES [facility] [address] [place] [address] * NON-STRESS TEST (03/03/2021 11:32 PM CDT) [...] - 170 ug/dL 02/26/2021 3:44 PM CDT [facility] Comment:Attention clinician: Reference Range change. Transferrin 399(H) 180 - 382 mg/dL 02/26/2021 3:44 PM CDT [facility] Comment:Attention clinician: Reference Range change. TIBC Calculated 499(H) 240 - 450 ug/dL 02/26/2021 3:44 PM CDT [facility] Iron Saturation % 9(L) 20 - 50 % 02/26/2021 3:44 PM CDT [facility] Blood BLOOD SPECIMEN / Unknown Venipuncture / Unknown 02/26/2021 3:14 PM CDT 02/26/2021 3:25 PM CDT Hali Tomas PASSENGER CAR CONDUCTOR-ELECTRONICS INSTRUCTOR LAB - EVENT SPECIALIST RY ORDERABLES Performing Organization Address [facility] de Phone Number [facility] [address] [place] [address] * FERRITIN (02/26/2021 3:14 PM CDT) Ferritin 7 5 - 204 ng/mL 02/26/2021 4:12 PM CDT [facility] Blood BLOOD SPECIMEN / Unknown Venipuncture / Unknown 02/26/2021 3:14 PM CDT 02/26/2021 3:25 PM CDT Hali Tomas PASSENGER CAR CONDUCTOR-ELECTRONICS INSTRUCTOR LAB - EVENT SPECIALIST RY ORDERABLES Performing Organization Address [facility] de Phone Number [facility] [address] [place] [phone] * SONOGRAM - COMPLETE (02/24/2021 9:45 AM CDT) Only the most recent of3 resultswithin the time period is included. Anatomical Region Laterality Modality Other 02/24/2021 9:45 AM CDT Narrative 02/24/2021 11:55 AM CDT ?[facility] ? - [place] ? Maternal & Care Center ?PHONE: ??FAX: Pat. Name: ?HANNAH LUIS Pat. No: ?[id number] Study Date: ?? 02/24/2021 ??9:45am , Age: ? 1995, 25 Pregnancies: ?? 5, Para 3, Ab 1 Height: ? 65 in Weight: ? 166 lb LMP: ?Unknown GA by Base: ?? 32w6d ?? SRINIVASA: 04/15/2021 GA by US: ? 33w1d ?? SRINIVASA: 04/13/2021 GA Selected: ??32w6d (From [facility]) SRINIVASA: ?04/15/2021 Referring MD: Junie Brizuela MD Factory Lay Out Engineer: ??April Hernandez, HALIE, ANNIE CPT4: ? 54501 BMI: ?27.62 Room: ? 540 Hist/Ind: ? Unknown LMP ?Hx ?EIF ?PPROM MEASUREMENTS & AGE ? GROWTH EVALUATION Measurement ??GA ? Range ? Srce %for GA Ratios ----- ---- ------- BPD ??8.4 cm 33w6d (18o2s-98o7b) Hadl BPD 71% FL/BPD 0.71 (0.71 - 0.87* HC ??30.7 cm 34w1d (96f1f-09m0y) Hadl HC ??49% FL/AC ??0.20 (0.20 - 0.24) AC ??29.7 cm 33w5d (89y4f-58k7x) Hadl AC ??74% HC/AC ??1.03 (0.95 - 1.14) FL ?? 6.0 cm 31w0d (79g2c-65u8z) Hadl FL ??5% CI ? 0.77 (0.70 - 0.86) HL ?? 5.2 cm 30w1d (50n3p-30s0n) Cyril HL ??6% GA for sonogram 33w1d (88z3n-27o7a) ?? Weight Estimate: based on (BPD,HC,AC,FL) Avg [...] ?<Electronic Signature> ??02/24/2021 11:55am Fabrice Solis MD [facility] ORDERABLES * (ABNORMAL) FIBRINOGEN ACTIVITY (02/24/2021 1:45 AM CDT) Pathologist [facility] Fibrinogen 418(H) 200 - 400 mg/dL 02/24/2021 2:13 AM CDT [facility] Blood BLOOD SPECIMEN / Unknown Lab Venipuncture / Unknown 02/24/2021 1:45 AM CDT 02/24/2021 1:59 AM CDT Fabrice Solis MD LAB - COAGULATION OR DERABLES Performing Organization Address [facility] de Phone Number [facility] [address] [place] [address] * PTT (02/24/2021 1:45 AM CDT) Pathologist [facility] PTT 23.9 23.0 - 38.4 sec 02/24/2021 2:12 AM CDT [facility] Blood BLOOD SPECIMEN / Unknown Lab Venipuncture / Unknown 02/24/2021 1:45 AM CDT 02/24/2021 1:59 AM CDT Narrative [facility] - 02/24/2021 2:12 AM CDT Heparin Therapeutic Range for PTT: ??71.0 - 109.0 seconds. Fabrice Solis MD LAB - COAGULATION OR DERABLES Performing Organization Address [facility] de Phone Number [facility] [address] [place] [phone] * PT-INR (02/24/2021 1:45 AM CDT) Pathologist [facility] PT 13.3 12.1 - 14.8 sec 02/24/2021 2:11 AM CDT [facility] INR 1.0 0.9 - 1.1 02/24/2021 2:11 AM CDT [facility] Blood BLOOD SPECIMEN / Unknown Lab Venipuncture / Unknown 02/24/2021 1:45 AM CDT 02/24/2021 1:59 AM CDT Narrative [facility] - 02/24/2021 2:11 AM CDT Conventional Warfarin Anticoagulant Therapy: INR Reference Range: ??2.0-3.0 Intensive Warfarin Anticoagulant Therapy: INR Reference Range: ? 2.5-3.5 Fabrice Solis MD LAB - COAGULATION OR DERABLES Performing Organization Address City/[facility]/ZIP Co de Phone Number [facility] [address] [place], [place] [phone] * (ABNORMAL) MAGNESIUM BLOOD (02/24/2021 1:45 AM CDT) [facility] Magnesium 6.0(HH) 1.6 - 2.6 mg/dL 02/24/2021 2:30 AM CDT [facility] Blood BLOOD SPECIMEN / Unknown Lab Venipuncture / Unknown 02/24/2021 1:45 AM CDT 02/24/2021 1:59 AM CDT Fabrice Solis MD LAB - CHEMISTRY ORDE RABLES Performing Organization Address [facility]/ZIP Co de Phone Number [facility] [address] [place] [phone] * (ABNORMAL) DRUG SCREEN TOX URINE PANEL (02/23/2021 6:23 PM CDT) [facility] Amphetamines Screen Urine Not detected Not detected 02/23/2021 7:09 PM CDT [facility] Barbiturates Screen Urine Not detected Not detected 02/23/2021 7:09 PM CDT [facility] Benzodiazepines Screen Urine Not detected Not detected 02/23/2021 7:09 PM CDT [facility] Cannabinoids Screen Urine Detected(A) Not detected 02/23/2021 7:09 PM CDT [facility] Cocaine Screen Urine Not detected Not detected 02/23/2021 7:09 PM CDT [facility] Fentanyl Urine Not detected Not detected 02/23/2021 7:09 PM CDT [facility] Methadone Screen Urine Not detected Not detected 02/23/2021 7:09 PM CDT [facility] Opiate Screen Urine Not detected Not detected 02/23/2021 7:09 PM CDT [facility] Phencyclidine Screen Urine Not detected Not detected 02/23/2021 7:09 PM CDT [facility] Urine URINE / Unknown Collection / Unknown 02/23/2021 6:23 PM CDT 02/23/2021 6:39 PM CDT Narrative [facility] - 02/23/2021 7:09 PM CDT This [...] URINE CHEMISTR Y ORDERABLES Performing Organization Address City/State/[facility] Co de Phone Number [facility] [address] [place], [place] [phone] * CHLAMYDIA + GC AMPLIFIED PROBE (STL) (02/23/2021 6:22 PM CDT) Pathologist [facility] Chlamydia Amplified Probe Negative Negative 02/24/2021 5:54 AM CDT [facility]CRO[facility] GC Amplified Probe Negative Negative 02/24/2021 5:54 AM CDT [facility]CRO[facility] Microbiology PART OF UTERINE CERVIX / Unknown Collection / Unknown 02/23/2021 6:22 PM CDT 02/23/2021 6:39 PM CDT Narrative [facility]CRO[facility] - 02/24/2021 5:54 AM CDT Results based on detection/no detection of ribosomal RNA by amplified method. Fabrice Solis MD LAB - MICROBIOLOGY O RDERABLES [facility]CROBIOLOGY [address] [place] [phone] * TRICHOMONAS RAPID TEST (02/23/2021 6:22 PM CDT) Trichomonas Rapid Test Negative Negative 02/23/2021 7:05 PM CDT [facility] Microbiology VAGINAL SWAB / Unknown Collection / Unknown 02/23/2021 6:22 PM CDT 02/23/2021 6:39 PM CDT Fabrice Solis MD LAB - MICROBIOLOGY O RDERABLES Performing Organization Address City/[facility]/ZIP Co de Phone Number [facility] [address] [place] [address] * BLOOD TYPE VERIFICATION (02/23/2021 6:21 PM CDT) ABO Rh B POS 02/23/2021 7:0 4 PM CDT [facility] Blood Bank BLOOD SPECIMEN / Unknown Venipuncture / Unknown 02/23/2021 6:21 PM CDT 02/23/2021 6:33 PM CDT Fabrice Solis MD LAB - BLOOD BANK ORD ERABLES Performing Organization Address City/[facility] Co de Phone Number [facility] [address] [place], [place] [address] [phone] * CULTURE STREP B (02/23/2021 6:20 PM CDT) Culture Strep B Negative for beta-hemolytic Streptococcus Group B ARTIE 02/27/2021 5:36 AM CDT [facility] MICROBIOLOGY Microbiology MISCELLANEOUS SAMPLES / Unknown Collection / Unknown 02/23/2021 6:20 PM CDT 02/23/2021 6:39 PM CDT Fabrice Solis MD LAB - MICROBIOLOGY O RDERABLES Performing Organization Address [facility] Co de Phone Number [facility] MICROBIOLOGY [address] [place] [address], [facility] [phone] * (ABNORMAL) RUPTURE OF MEMBRANES EVAL (02/23/2021 5:35 PM CDT) RUPTURE OF MEMBRANES POSITIVE(A ) NEGATIVE 02/23/2021 5:47 PM CDT [facility] Fluid VAGINAL SWAB / Unknown Collection / Unknown 02/23/2021 5:35 PM CDT 02/23/2021 5:38 PM CDT Narrative [facility] - 02/23/2021 5:47 PM CDT A [...] BODY FLUID ORD ERABLES Performing Organization Address [facility] Co de Phone Number [facility] [address] [place] [address]
--- OUTSIDE RECORDS SUMMARY | 2024-10-17 11:53 | XMS_ITS | Encounter Summary ---
Author Organization [facility] Address [facility] [place] [place] [address] Care Team Providers Care Leverman Name Role Phone Unavailable Primary Care Provider Unavailabl e Reason for Visit * Reason Onset Date Comments Scheduling 03/08/2021 Encounter Details Date Type Department Care Team (Late st Contact Info) Description 03/08/2021 Telephone [facility]/ EVALUATION UNIT [facility] [place] [address] Katerin Reed Scheduling Social History Tobacco Use [...]
--- OUTSIDE RECORDS SUMMARY | 2024-10-17 11:53 | XMS_ITS | Referral Summary ---
Author Organization [facility] Address [address] [facility] [place] [address] Care Team Providers Care Agile Tester Name Role Phone Unavailable Primary Care Provider Unavailabl e Source Comments [facility],non-owned Affiliates and Associated Physician Practices is amultiple site organization consisting of ambulatory clinics and hospital sitesin [place], [place], [place] and [place]. This disclosure is being madepursuant to the Care Everywhere program and may not contain all information available regarding this patient. Last updated 18.[facility] Enlighted Allergies Active Allergy Reactions Criticality Noted Date [...]
--- OUTSIDE RECORDS SUMMARY | 2024-10-17 11:53 | XMS_ITS | Encounter Summary ---
Author Organization [facility] Address [facility] [place] [address] Care Team Providers Care Manager Roofing Name Role Phone Unavailable Primary Care Provider Unavailabl e Reason for Visit * Reason Onset Date Comments Confirmation 10/21/2022 Encounter Details Date Type Department Care Team (Late st Contact Info) Description 10/21/2022 Telephone [facility] - Internal Medicine [address] [place] [phone] Ajay Marino MD [address] [place] [address] [phone] Confirmation Social History Tobacco Use Types Packs/Day [...] listed above, where are they calling from? [facility] What is the reason for call? Attempted to reach patient to confirm upcoming appt with Dr. Marino. Appointment cancelled. Expected Response from the Clinic? N/A STAY STITCHER documented in this encounter Plan of Treatment Not on file documented as of this encounter Visit Diagnoses Not on filedocumented in this encounter
--- OUTSIDE RECORDS SUMMARY | 2024-10-17 11:53 | XMS_ITS | Encounter Summary ---
Author Organization [facility] Address [facility] [facility] [place] [address] Care Team Providers Care Africana Studies Professor Name Role Phone Unavailable Primary Care Provider Unavailabl e Reason for Visit * Auth/Cert Specialty Diagnoses / Procedures Referred By Contac t Referred To Contact Referral ID Status Reason Start Date Expiration Date Visits Re quested Visits Authorized [id number] 1 1 Encounter Details Date Type Department Care Team (Late st Contact Info) Description 03/04/2021 3:55 PM CDT Anesthesia Event [facility] 5 L[address] [place], [place] [id number] Trent Phillips MD [address] [place] [address] Sharifa Alvarado, COATING MACHINE HELPER-DATA SCIENTIST [address] [place] [address] Anesthesia Record Procedure Summary Procedure Name Responsible [...] 29 CM; Lumens: Single Lumen; Gauge: 3 Ugandan; Length of Cath(cm): 20 cm; Brand: BARD; Lot: [id number] exp 12/21; Tolerance: Moderate 03/01/21 1003 by [...] this encounter Progress Notes * Quincy Amin APRN-DATA SCIENTIST - 03/05/2021 11:01 AM CDT ANESTHESIA POSTOP [...] COMPLICATIONS: No complications documented. * Sharifa Alvarado APRN-DATA SCIENTIST - 03/04/2021 3:48 PM CDT ANESTHESIA PREOPERATIVE [...] this encounter Procedure Notes * Sharifa Alvarado, COATING MACHINE HELPER-DATA SCIENTIST - 03/04/2021 4:08 PM CDTAssociated Order(s): Neuraxial [...] ??2 Staff: ?? Anesthesia Provider: ??Sharifa Alvarado, TOSHIA-DATA SCIENTIST ?? - ?? performed the procedure Trent [...]
--- OUTSIDE RECORDS SUMMARY | 2024-10-17 11:54 | XMS_ITS | Encounter Summary ---
Author Organization [facility] Address [address] [facility] [place] [address] Care Team Providers Care Plant And Equipment Worker Name Role Phone Unavailable Primary Care Provider Unavailabl e Reason for Visit * Reason Comments Ultrasound * Evaluate & Treat (Routine) - Closed Specialty Diagnoses / Procedures Referred By Contac t Referred To Contact Diagnoses Abnormal ultrasonic finding on screening of mother Encounter for screening, unspecified (HCC) Supervision of other high risk pregnancies, unspecified trimester ([facility]) Procedures [place] ULTRASOUND, UTERUS Elisa Krueger MD [address] [address] [facility] Maternal Fet Shil [address] [place] [address] Referral ID Status Reason Start Date Expiration Date Visits Re quested Visits Authorized [id number] Closed 10/07/2020 12/07/2020 1 1 Encounter Details Date Type Department Care Team (Latest Contact Info) Description 10/07/2020 12:31 PM BROKERAGE OFFICE MANAGER - 10/07/2020 11:59 PM BROKERAGE OFFICE MANAGER Hospital Encounter [facility] Maternal & Care [address] [place] [address] Tima Bejarano MD Discharge Disposition: [...] tech were wearing masks TEMPS Pt:97.9 Guest: ERAGE OFFICE MANAGER documented in this encounter Plan of Treatment Not on file documented as of this encounter Procedures Procedure Name Priority Date/Time Associated Diagnosis Comments SONOGRAM - COMPLETE Routine 10/07/2020 1 2:56 PM BROKERAGE OFFICE MANAGER Date of last menstrual period (LMP) unknown documented in this encounter Results * SONOGRAM - COMPLETE (10/07/2020 12:56 PM BROKERAGE OFFICE MANAGER) Anatomical Region Laterality Modality Other 10/07/2020 12:5 6 PM BROKERAGE OFFICE MANAGER Narrative 10/07/2020 11:10 PM BROKERAGE OFFICE MANAGER ? - [facility] ? [facility] ?PHONE: ??FAX: ? Pat. Name: ?HANNAH PYLE. No: ?[id number] Study Date: ?? 10/07/2020 ??12:56pm , Age: ? 1995, 25 Pregnancies: ?? 5, Para 3, Ab 1 Height: ? 65 in Weight: ? 166 lb LMP: ?Unknown GA by US: ? 13w3d ?? SRINIVASA: 04/11/2021 GA Selected: ??12w6d (From Known E) SRINIVASA: ?04/15/2021 Referring MD: Junie Brizuela MD Military Technician: ??Bela Villafuerte RDMS CPT4: ? 69644 BMI: ?27.62 Hist/Ind: ? Dating ?Unknown LMP ?Hx MEASUREMENTS & AGE ? GROWTH EVALUATION Measurement ??GA ? Range ? Srce %for GA Ratios ----- ---- ------- CRL ??7.4 cm 13w3d ([id number]) Hadl CRL 76% GA for sonogram 13w3d ([id number]) based on (CRL) Avg ? Heart Rate: [...] <Electronic Signature> ??10/07/2020 11:11pm Tima Bejarano MD [facility] ORDERABLES documented in this encounter Visit Diagnoses Diagnosis Date of last menstrual period (LMP) unknown- Primary Encounter for screening for uncertain dates (HCC) 12 weeks gestation of (HCC) state, incidental documented in this encounter
--- OUTSIDE RECORDS SUMMARY | 2024-10-17 11:54 | XMS_ITS | Encounter Summary ---
Author Organization [facility] Address [address] [facility] [place] [address] Care Team Providers Care Entertainment Dancer Name Role Phone Unavailable Primary Care Provider Unavailabl e Reason for Visit * Reason Onset Date Comments Missed Appointment 12/02/2020 missed 11/30/20 Encounter Details Date Type Department Care Team (Late st Contact Info) Description 12/02/2020 Telephone [facility] Maternal & Care [address] [place] [address] Igor Siegel Missed Appointment (missed 11/30/20) Social [...] for her to call back to reschedule. NA ROOM CUTTER documented in this encounter Plan of Treatment Not on file documented as of this encounter Visit Diagnoses Not on filedocumented in this encounter
--- OUTSIDE RECORDS SUMMARY | 2024-10-17 11:54 | XMS_ITS | Encounter Summary ---
Author Organization [facility] Address [address] [facility] [place] [address] Care Team Providers Care Manager Of Tax Name Role Phone Unavailable Primary Care Provider Unavailabl e Reason for Visit * Reason Onset Date Comments Missed Appointment 12/04/2020 missed 11/30/20 appt Encounter Details Date Type Department Care Team (Late st Contact Info) Description 12/04/2020 Telephone [facility] Health Maternal & Care [address] [place] [address] Igor Siegel Missed Appointment (missed 11/30/20 appt) [...] reschedule missed appt on 11/30/20 left VM ATION THERAPY TECHNOLOGIST documented in this encounter Plan of Treatment Not on file documented as of this encounter Visit Diagnoses Not on filedocumented in this encounter
--- OUTSIDE RECORDS SUMMARY | 2024-10-17 11:54 | XMS_ITS | Encounter Summary ---
Author Organization [facility] Address [address] [facility] [place] [address] Care Team Providers Care Certified Pathology Assistant Name Role Phone Unavailable Primary Care Provider Unavailabl e Reason for Visit * Reason Onset Date Comments Results 10/14/2020 Encounter Details Date Type Department Care Team (Late st Contact Info) Description 10/14/2020 Telephone [facility] Maternal & Care [address] [place] [address] Yasmine Schaffer RN Results Social History Tobacco [...] will be sent to patient's primary OB GER STERILE PROCESSING documented in this encounter Plan of Treatment Not on file documented as of this encounter Visit Diagnoses Diagnosis Fifth (HCC) state, incidental Encounter for ultrasound (HCC) Encounter for routine screening for malformation using ultrasonics Hx of section Other postprocedural status Herpes Herpes simplex without mention of complication documented in this encounter
--- OUTSIDE RECORDS SUMMARY | 2024-10-17 11:55 | XMS_ITS | Continuity of Care Document ---
Author Organization [facility] Address [address] [employer] [facility] [place] [address] Phone Care Team Providers Care Book Trimmer Name Role Phone Ugo Corona MD Unavailable Unavailable Advance Directives Directive Yes / No Effective Date File Name No Information Encounters Encounter Description Practice Location Reason(s) For Visit Diagnoses Date Provider Providers Copied on [facility]counter [facility], [address] [place] [address] [facility] [place] [facility], [facility], tel:[phone] [facility] No Information Cj Arizmendi. [address], [place], [place], [facility], [facility]. tel:[phone] Family History Family Member Type Diagnosis Age At Onset No Information Payers Payer name Insurance type Covered democrat ID Authoriza tion(s) No Information Social History [...]
--- OUTSIDE RECORDS SUMMARY | 2024-10-17 11:56 | XMS_ITS | Clinical Summary ---
Author Organization [facility] [address] Address [address] [place] [address] Phone Care Team Providers Care Division Chair Name Role Phone No, Physician Primary Care Provider [phone] Margareth Herrera DO Unavailable [phone] Allergies Active Allergy Reactions Criticality Noted Date [...] was counseled on the limitations of our [facility] and that can not guarantee the seo professional OB will offer a TOLAC if she [...] any clubs o r organizations such as scientologist groups, unions, fraternal or athletic groups, or [...] staff should administer the PHQ-9) 0 09/01/2023 [facility] - [...] slept in a halfway (including now)? No 09/01/2023 Personal Safety Answer [...] BABY BOY NADIR daily MD Complications:None Delivery Location:[facility] ([facility] 5 R) Last Filed Vital Signs Vital Sign Reading Time Taken Comments Blood Pressure 118/73 09/05/2023 10:07 AM MEDICAL CENTER MANAGER Pulse 62 09/05/2023 10:07 AM MEDICAL CENTER MANAGER Temperature 36.2 ??C (97.1 ??F) 09/05/2023 10:[address] Respiratory Rate 18 09/05/2023 10:07 AM MEDICAL CENTER MANAGER Oxygen Saturation 99% 09/05/2023 10:07 AM MEDICAL CENTER MANAGER Inhaled Oxygen Concentration - - Weight 75.8 kg (167 lb 1.7 oz) 09/05/2023 6:20 A M MEDICAL CENTER MANAGER Height 165.1 cm (5' 5 ) 09/05/2023 6:20 AM MEDICAL CENTER MANAGER Body Mass Index 27.81 09/05/2023 6:20 AM MEDICAL CENTER MANAGER Plan of Treatment Health Maintenance Due Date [...] C antibody (03/23/2023 11:20 AM CDT) Pathologist [facility] Hep C Ab Nonreactive Nonreactive OSCAR ARMENDARIZ [...] RAL ORDERABLES Edited Result - Final OSCAR [address] [facility] Department of Laboratories [place] [id number] * Pap with reflex to High Risk HPV (03/23/2023 8:02 AM CDT) Thin prep (Pap test) 03/23/2023 8:02 AM CDT 03/23/2023 8:02 AM CDT Narrative PATHOLOGY CH - 03/28/2023 1:21 PM CDT [facility] Department of Pathology [address] [place], [place] [id number] Final Report Note to Patients: This report [...] the details. Patient Name: ??HANNAH PYLE Address: ??[address] [place] [address], ?? [place], [place] [address] Gender: ??F : ??1995 (Age: 27) Service: ?? Location: ?? Hospital #: ??[id number] Patient Type: ?? SPECIMEN Taken: ??03/23/2023 Received: ??03/23/2023 Accessioned:: ??03/24/2023 Reported: ??03/28/2023 Physician(s): Margareth Herrera D.O. Margareth Herrera D.O. Diagnosis: SOURCE OF SPECIMEN ? Imaged Thinprep Pap Test w/ Reflex HPV - Unit Receptionist Cytologic Material: STATEMENT OF ADEQUACY ?- Specimen satisfactory for interpretation; endocervical/transformation zone component absent or ?insufficient ? GENERAL CATEGORIZATION: ?- Negative for intraepithelial lesion or malignancy ? INTERPRETATION: ?- Numerous inflammatory cells present ? DISHA Faulkner(ASCP) Report Electronically Reviewed and Signed Out By ??DISHA Faulkner(ASCP) ??03/28/2023 13:21:27Specimen(s) Received: A: Imaged Thinprep Pap Test w/ Reflex HPV - Unit Receptionist Cytologic Material Clinical History: Last Menstrual Period: [...] determined by the Surgical Pathology Department at [facility] as part of an ongoing senior quality control inspector program and in compliance with federally mandated [...] determined by the Surgical Pathology Department [facility]. ??It has not been cleared or approved by the U. S. Food and Drug Administration. us Margareth Herrera DO LAB CYTOLOGY ORDERABLES Final Result PATHOLOGY [address] [place] [address] from Last 3 Months or Most Recently Relevant to Health Maintenance [place] [employer] Care Teams Division Chair Relationship Specialty Start Date End Date No, Physician PCP - General 03/09/23 Margareth Herrera DO [address] [place] [address] Consulting Physician Obstetrics and Gynecology 09/05/23
--- OUTSIDE RECORDS SUMMARY | 2024-10-17 11:57 | XMS_ITS | Encounter Summary ---
Author Organization [facility] Address [address] [facility] [address] [place] [address] Care Team Providers Care Property Coordinator Name Role Phone No, Physician Primary Care Provider [phone] Reason for Visit * Reason Comments Routine Visit Encounter Details Date Type Department Care Team (Late st Contact Info) Description 06/16/2023 10:50 AM CDT Office Visit [facility] [address] [place] [address] Margareth Herrera, DO [address] [place] [address] care, subsequent , second trimester (Primary Dx); [...] Vaginitis panel Vaginal (06/16/2023 4:30 PM CDT) [facility] Marley DNA probe Detected(A) Not Detected OSCAR ARMENDARIZ Comment:Testing performed by : [facility], [address] [place] [address]., [address] Gardnerella DNA probe Detected(A) Not Detected OSCAR ARMENDARIZ Comment:Testing performed by : [facility], [address] [place] [address]., [id number] Trichomonas DNA probe Not Detected Not Detected OSCAR ARMENDARIZ Comment: Interpretive Data Testing performed by [facility] via Affirm VPIII Microbial [...] last revised on 2020. Testing performed by: [facility], [address] [place] [address]., [id number] Vaginal 06/16/2023 4:30 PM CDT 06/17/2023 2:00 PM CDT Margareth Herrera DO LAB MICROBIOLOGY - GENE [facility] ORDERABLES Final Result OSCAR [address] [address] Department [place] [address] * (ABNORMAL) POCT urine glucose and protein (06/16/2023 10:13 AM CDT) [facility] Glucose, ur, POC Negative Negative MG/DL Protein, ur, POC 1+(A) Negative Lot Number [id number] Urine 06/16/2023 10:1 3 AM CDT Margareth Herrera DO POINT OF CARE TEST YIMI MACIAS Final Result documented in this encounter Visit Diagnoses Diagnosis care, subsequent , second trimester- Primary Acute vaginitis Unspecified vaginitis and vulvovaginitis documented in this encounter Care Teams Property Coordinator Relationship Specialty Start Date End Date No, Physician PCP - General 03/09/23 documented as of this encounter
--- OUTSIDE RECORDS SUMMARY | 2024-10-17 11:57 | XMS_ITS | Encounter Summary ---
Author Organization [facility] Address [address] [place] [address] Care Team Providers Care Radiology Transporter Name Role Phone No, Physician Primary Care Provider [phone] Encounter Details Date Type Department Care Team (Latest Contact Info) Description 06/16/2023 10:13 AM CDT - 06/16/2023 11:59 PM CDT Hospital Encounter [facility] [address] [place] [address] Encounter for supervision of other normal in [...] mouth daily 30 packet 2 05/15/2023 08/22/2023 [id number] olic (Kosher Plus Iron) 30 mg iron- [...] Detected OSCAR ARMENDARIZ Comment:Testing performed by : [facility], [address] [place] [address]., [address] Gardnerella DNA probe Detected(A) Not Detected OSCAR ARMENDARIZ Comment:Testing performed by : [facility], [address] [place] [address]., [address] Trichomonas DNA probe Not Detected Not Detected OSCAR ARMENDARIZ Comment: Interpretive Data Testing performed by [facility] via Affirm VPIII Microbial Identification Test, [...] last revised on 2020. Testing performed by: [facility], [address] [place] [address]., [address] Vaginal 06/16/2023 4:30 PM CDT 06/17/2023 2:00 PM CDT us Margareth Herrera DO LAB MICROBIOLOGY - GENE RAL ORDERABLES Final Result OSCAR ARMENDARIZ [address] [address] Department [place] [address] * Urine culture Urine, clean voided (06/16/2023 3:58 PM CDT) Report Final Report: Growth indicative of contamination with periurethral shekhar. Please submit a new specimen with special attention given to the collection process and to prompt transport to the laboratory. OSCAR Comment:Testing performed by : [facility], [address] [place]., [address] Organism GROWTH INDICATES CONTAM WITH PERIURETHRAL SHEKHAR. [facility] Urine, clean voided 06/16/2023 3:58 PM CDT 06/16/2023 10:43 PM CDT Narrative [facility] - 06/18/2023 11:15 AM CDT Testing performed by [facility] Microbiology Laboratory ([phone]) Hannah Pop MD LAB MICROBIOLOGY - [facility] ORDERABLES Final Result [facility] [address] [address] Department [place] [address] * (ABNORMAL) Differential, auto (06/16/2023 10:41 AM CDT) Neutrophil abs 6.8(H) 1.7 - 6.5 K/cumm [facility] Imm gran abs 0.0 0.0 - 0.1 K/cumm [facility] Lymphocyte abs 1.6 0.8 - 3.3 K/cumm [facility] Monocyte abs 0.5 0.2 - 0.8 K/cumm [facility] Eosinophil abs 0.2 0.0 - 0.5 K/cumm [facility] Basophil abs 0.0 0.0 - 0.1 K/cumm [facility] Neutrophil pct 74.6 % [facility] Comment: Interpretive Data Percent cell count reference ranges are not reported, since discordance with absolute values may lead to misinterpretation of CBC data. Current Interpretive Data was last revised on 2018. Imm gran pct 0.4 % [facility] Comment: Interpretive Data Percent cell count reference ranges are not reported, since discordance with absolute values may lead to misinterpretation of CBC data. Current Interpretive Data was last revised on 2018. Lymphocyte pct 17.2 % [facility] Comment: Interpretive Data Percent cell count reference [...] BLOOD ORDERABLES Final Result Performing Organization Address City/[facility]/ZIP Co de Phone Number OSC[facility] [address] Department [place] [address] * HIV 1/2 Antibody plus [...] - GE NERAL ORDERABLES Final Result [facility] [address] [address] Department [place] [address] * (ABNORMAL) CBC with auto differential (06/16/2023 10:41 AM CDT) WBC 9.2 3.8 - 9.9 K/cumm [facility] Hgb 11.4(L) 11.9 - 15.5 g/dL [facility] Hct 35.0(L) 35.6 - 45.5 % [facility] Plt 255 150 - 400 K/cumm [facility] MPV 9.9 9.1 - 12.3 fL [facility] RBC 3.77(L) 3.90 - 5.20 M/cumm [facility] MCV 92.8 81.3 - 96.4 fL [facility] MCH 30.2 27.1 - 33.3 pg [facility] MCHC 32.6 32.3 - 35.7 g/dL [facility] RDW CV 12.7 11.1 - 14.9 % [facility] RDW SD 43.6 35.7 - 48.1 fL [facility] NRBC abs 0.00 0.00 - 0.01 K/cumm [facility] Blood 06/16/2023 10:4 1 AM CDT 06/16/2023 6:47 PM CDT Hannah Pop MD LAB BLOOD ORDERABLES Final Result [facility] [address] Department [place] [address] * Glucose tolerance testing 50 gram gestational screen (06/16/2023 10:41 AM CDT) GTT 50g gest screen 137 <=140 mg/dL [facility] Comment: Interpretive Data Used for suspected gestational [...] MD LAB BLOOD ORDERABLES Final Result [facility] [address] [address] Department of Laboratories [place], [place] [id number] documented in this encounter Visit Diagnoses Diagnosis Encounter for supervision of other normal in third trimester 27 weeks gestation of Acute vaginitis Unspecified vaginitis and vulvovaginitis documented in this encounter Care Teams Radiology Transporter Relationship Specialty Start Date End Date No, Physician PCP - General 03/09/23 documented as of this encounter
--- OUTSIDE RECORDS SUMMARY | 2024-10-17 11:57 | XMS_ITS | Encounter Summary ---
Author Organization [facility] Healthcare Address [address] [place] [address] Care Team Providers Care Bulb Planter Name Role Phone No, Physician Primary Care Provider [phone] Margareth Herrera DO Unavailable [phone] Reason for Visit * Auth/Cert (Routine) Specialty Diagnoses / Procedures Referred By Leonra t Referred To Contact Diagnoses Request for sterilization Request for sterilization [Z30.2] Procedures GA LIG/TRNSXJ FLP TUBE ABDL/VAG SPX SALPINGECTOMY Referral ID Status Reason Start Date Expiration Date Visits Re quested Visits Authorized [id number] 1 1 Encounter Details Date Type Department Care Team (Late st Contact Info) Description 09/05/2023 6:01 AM REINFORCING STEEL MACHINE OPERATOR - 09/05/2023 10:43 AM REINFORCING STEEL MACHINE OPERATOR Hospital Encounter [facility] Operating Room 1 [place] [address] Margareth Herrera DO [address] [place] [address] Request for sterilization Discharge Disposition: Discharge to [...] staff should administer the PHQ-9) 0 09/01/2023 [facility] - Occupational Stress Questionnaire Answer Date [...] slept in a intermediate (including now)? No 09/01/2023 Personal Safety Answer [...] Comments Blood Pressure 118/73 09/05/2023 10:07 AM REINFORCING STEEL MACHINE OPERATOR Pulse 62 09/05/2023 10:07 AM REINFORCING STEEL MACHINE OPERATOR Temperature 36.2 ??C (97.1 ??F) 09/05/2023 10:[address] Respiratory Rate 18 09/05/2023 10:07 AM REINFORCING STEEL MACHINE OPERATOR Oxygen Saturation 99% 09/05/2023 10:07 AM REINFORCING STEEL MACHINE OPERATOR Inhaled Oxygen Concentration - - Weight 75.8 kg (167 lb 1.7 oz) 09/05/2023 6:20 A M REINFORCING STEEL MACHINE OPERATOR Height 165.1 cm (5' 5 ) 09/05/2023 6:20 AM REINFORCING STEEL MACHINE OPERATOR Body Mass Index 27.81 09/05/2023 6:20 AM REINFORCING STEEL MACHINE OPERATOR documented in this encounter Discharge Instructions * Attachments The following attachments cannot be sent through Care Everywhere. * General Anesthesia (Discharge Care) (Australian) documented in this encounter Medications at Time [...] She was originally scheduled for induction at [facility] yesterday with a plan for PP BS today but ended up delivering [facility] Monday night. Delivery was uncomplicated. She [...] and even . Margareth Herrera DO 09/05/23 FORCING STEEL MACHINE OPERATOR documented in this encounter Miscellaneous Notes * Perioperative Nursing Note - Sherita Conley RN - 09/05/2023 10:08 AM REINFORCING STEEL MACHINE OPERATOR Pt ambulatory with no difficulty to the restroom, was able to void prior to discharge, small amountof drainage seen on elena pad. FORCING STEEL MACHINE OPERATOR * Perioperative Nursing Note - Sherita Conley RN - 09/05/2023 9:38 AM REINFORCING STEEL MACHINE OPERATOR Pt having pain of 05/08, Dr. Herrera made aware, order for percocet placed. FORCING STEEL MACHINE OPERATOR * Op Note - Margareth Herrera DO [...] She was originally scheduled for induction at [facility] yesterday with a plan for PP BS today but ended up delivering at [facility] Monday night. Delivery was uncomplicated. [...] Date: 09/05/2023 Time: 8:36 AM The Attending, Margareht Herrera DO, was present for the entire procedure. FORCING STEEL MACHINE OPERATOR * Pre-Procedure Instructions - Ashli De Dios RN - 09/04/2023 2:19 PM REINFORCING STEEL MACHINE OPERATOR We are pleased that you and your doctor have chosen [facility] for your surgery. We hope [...] morning of surgery Use no make-up, nail lao, lotions, oils or powders on your skin. [...] posted at the top of the page. FORCING STEEL MACHINE OPERATOR documented in this encounter Plan of Treatment Not on file documented as of this encounter Procedures Procedure Name Priority Date/Time Associated Diagnosis Comments SURGICAL PATHOLOGY Routine 09/05/2023 9: 49 AM REINFORCING STEEL MACHINE OPERATOR Request for sterilization SALPINGECTOMY 09/05/2023 7:46 AM REINFORCING STEEL MACHINE OPERATOR Request for sterilization DIFFERENTIAL AUTO STAT 09/05/2023 6:3 9 AM REINFORCING STEEL MACHINE OPERATOR CBC WITH AUTO DIFFERENTIAL STAT 09/05/2023 6:39 AM REINFORCING STEEL MACHINE OPERATOR documented in this encounter Results * Surgical pathology (09/05/2023 9:49 AM REINFORCING STEEL MACHINE OPERATOR) Tissue (Fallopian tube, sterilization) 09/05/2023 8:03 AM REINFORCING STEEL MACHINE OPERATOR Narrative [facility] ([facility]) - 09/06/2023 10:35 AM REINFORCING STEEL MACHINE OPERATOR EPIC results best viewed via link to PDF [facility] Department of Pathology [address] [place], [place] [id number] Note to Patients: This report may contain [...] Final Report Patient Name: ??HANNAH PYLE Address: ??[facility] [address], ??[place], [place] ?? Gender: ??F : ??1995 (Age: 28) Service: ??Surgery Location: ??[facility] Hospital #: ??[id number] Patient Type: ??[facility] Accession # ?[id number] Taken: ??09/05/2023 Received: ??09/05/2023 Accessioned: ??09/05/2023 Reported: [...] the Surgical Pathology Department at [facility] as part of an ongoing senior [...] determined by the Surgical Pathology Department [facility]. ??It has not been cleared or approved by the U. S. Food and Drug Administration. Note for decalcified specimens: This assay has not been validated on decalcified tissues. Results should be interpreted with caution given the possibility of false negativity on decalcified specimens Margareth Herrera DO LAB PATHOLOGY ORDERABLE S Final Result PATHOLOGY [facility] ([facility]) 1 [place] [address] * Differential, auto (09/05/2023 6:39 AM REINFORCING STEEL MACHINE OPERATOR) Neutrophil abs 4.4 1.7 - 6.5 K/cumm [...] revised on 2018. Blood 09/05/2023 6:39 AM REINFORCING STEEL MACHINE OPERATOR 09/05/2023 6:43 AM REINFORCING STEEL MACHINE OPERATOR us Margareth Herrera DO LAB BLOOD ORDERABLES Fi nal Result [facility] ([facility]) 1 [facility] Department [place] [address] * (ABNORMAL) CBC with auto differential (09/05/2023 6:39 AM REINFORCING STEEL MACHINE OPERATOR) WBC 7.6 3.8 - 9.9 K/cumm C[facility]ER [...] [facility] ([facility]) Blood 09/05/2023 6:39 AM REINFORCING STEEL MACHINE OPERATOR 09/05/2023 6:43 AM REINFORCING STEEL MACHINE OPERATOR us Margareth Herrera DO LAB BLOOD ORDERABLES Fi nal Result [facility] ([facility]) 1 [facility] Department [place] [address] documented in this encounter Visit Diagnoses Diagnosis [...] more., Indications: PainIndications:Pain Given 09/05/2023 9:21 AM REINFORCING STEEL MACHINE OPERATOR 50 mcg Given 09/05/2023 9:09 AM REINFORCING STEEL MACHINE OPERATOR 50 mcg Lactated Ringer's (LR) infusion 30 mL/hr, intravenous, Continuous, Starting on Mon09/05/23 at 0645, Pre-Op New Bag 09/05/2023 7:46 AM REINFORCING STEEL MACHINE OPERATOR oxyCODONE-acetaminophen (PERCOCET) 5-325 mg per tablet 1 tablet 1 tablet, oral, Once, On Mon09/05/23 at 1015, For 1 dose, Indications: PainIndications:Pain Given 09/05/2023 9:52 AM REINFORCING STEEL MACHINE OPERATOR 1 tablet documented in this encounter Discontinued [...] may contain times in both CDT and REINFORCING STEEL MACHINE OPERATOR. Scheduled Medication Order 09/03/2023 09/04/2023 09/05/2023 ceFAZolin [...] Intra-Op 0838 (Given - Provid er: Hannah Saavge, MACHINE TAILER) fentaNYL (SUBLIMAZE) preservative free injection 50 mcg [...] 1,000 mg 1 1 11/05/2022 BUPivacaine-EPINEPHrine (MAR SRAAH with EPI) 0.5 %-1:200,000 preservative free injection [...] 09/05/2023 documented in this encounter Care Teams Bulb Planter Relationship Specialty Start Date End Date No, Physician PCP - General 03/09/23 Margareth Herrera DO [address] [place] [address] Consulting Physician Obstetrics and Gynecology 09/05/23 documented as of this encounter
--- OUTSIDE RECORDS SUMMARY | 2024-10-17 11:57 | XMS_ITS | Encounter Summary ---
Author Organization [facility] Medical Group Address [address] [place] [address] Care Team Providers Care Tool Design Engineer Name Role Phone No, Physician Primary Care Provider [phone] Encounter Details Date Type Department Care Team (Late st Contact Info) Description 06/22/2023 Telephone [facility] [address] [place] [address] Elena Veliz LPN Social History [...] go to [facility] in [place] tomorrow for 3 hr GTT * Telephone [...] Glucose, fasting 75 65 - 94 mg/dL [facility] Glucose, 1 hour 165 <180 mg/dL [facility] Glucose, 100g, 2 hr, pl 127 <155 mg/dL [facility] Glucose, 100g, 3 hr, pl 74 <140 mg/dL [facility] Comment [facility] Comment: ?? Galaviz/Coustan Criteria: Two or more values greater than the above reference intervals are suggestive of gestational diabetes. ?? Serum 07/05/2023 9:21 AM CDT 07/05/2023 9:22 AM CDT Narrative [facility] - 07/06/2023 2:32 AM CDT FASTING:YES FASTING: YES Margareth Herrera DO LAB BLOOD ORDERABLES Fi nal Result [facility] [address] [place] [address] documented in this encounter Visit Diagnoses Diagnosis Elevated glucose tolerance test- Primary Impaired glucose tolerance test documented in this encounter Care Teams Tool Design Engineer Relationship Specialty Start Date End Date No, Physician PCP - General 03/09/23 documented as of this encounter
--- OUTSIDE RECORDS SUMMARY | 2024-10-17 11:57 | XMS_ITS | Encounter Summary ---
Author Organization [facility] Healthcare Address [address] [place] [address] Care Team Providers Care Cemetery Keeper Name Role Phone No, Physician Primary Care Provider [phone] Reason for Referral * Diagnostic Imaging (Routine) - Closed Specialty Diagnoses / Procedures Referred By Contjasmyn t Referred To Contact Diagnoses Malposition of fetus, single or unspecified fetus Procedures US Ob Limited Margareth Herrera DO [address] [place] [address] Phone: tel: fax: [place] [facility] Referral ID Status Reason Start Date Expiration Date Visits Re quested Visits Authorized [id number] Closed 08/02/2023 08/31/2024 1 1 Encounter Details Date Type Department Care Team (Late st Contact Info) Description 08/02/2023 Orders Only [facility] [address] [place] [phone] Margareth Herrera DO [address] [place] [address] Malposition of fetus, single or unspecified fetus [...] fetus documented in this encounter Care Teams Cemetery Keeper Relationship Specialty Start Date End Date No, Physician PCP - General 03/09/23 documented as of this encounter
--- OUTSIDE RECORDS SUMMARY | 2024-10-17 11:57 | XMS_ITS | Encounter Summary ---
Author Organization [facility] Healthcare Address [address] [place] [address] Care Team Providers Care Integration Manager Name Role Phone No, Physician Primary Care Provider [phone] Reason for Visit * Diagnostic Imaging (Routine) - Closed Specialty Diagnoses / Procedures Referred By Contac t Referred To Contact Diagnoses Malposition of fetus, single or unspecified fetus Procedures US Ob Limited Margareth Herrera, DO [address] [place] [address] Phone: tel: fax: [place] [facility] Referral ID Status Reason Start Date Expiration Date Visits Re quested Visits Authorized [id number] Closed 08/02/2023 08/31/2024 1 1 Encounter Details Date Type Department Care Team (Latest Contact Info) Description 08/02/2023 11:40 AM CDT Ancillary Procedure [facility] [address] [place] [phone] Malposition of fetus, single or unspecified fetus [...] fetus documented in this encounter Care Teams Integration Manager Relationship Specialty Start Date End Date No, Physician PCP - General 03/09/23 documented as of this encounter
--- OUTSIDE RECORDS SUMMARY | 2024-10-17 11:57 | XMS_ITS | Encounter Summary ---
Author Organization [facility] Medical Group Address [address] [address] Care Team Providers Care Sugar Refinery Supervisor Name Role Phone No, Physician Primary Care Provider [phone] Reason for Visit * Reason Comments Routine Visit Encounter Details Date Type Department Care Team (Late st Contact Info) Description 05/15/2023 2:40 PM CDT Office Visit [facility] [address] [place] [address] Margareth Rivera, DO [address] [place] [address] care, subsequent , second trimester (Primary Dx) [...] Protein, ur, POC 1+(A) Negative Lot Number [id number] Urine 05/15/2023 2:48 PM CDT Margareth Rivera DO POINT OF CARE TEST ORDE RABCAL Final Result documented in this encounter Visit Diagnoses Diagnosis care, subsequent , second trimester- Primary documented in this encounter Care Teams Sugar Refinery Supervisor Relationship Specialty Start Date End Date No, Physician PCP - General 03/09/23 documented as of this encounter
--- OUTSIDE RECORDS SUMMARY | 2024-10-17 11:57 | XMS_ITS | Encounter Summary ---
Author Organization [facility] Medical Group Address [address] [address] Care Team Providers Care Lockstitch Machine Operator Name Role Phone No, Physician Primary Care Provider [phone] Reason for Referral * Diagnostic Imaging (Routine) - Closed Specialty Diagnoses / Procedures Referred By Lenora t Referred To Contact Diagnoses Encounter for maternal care for excessive growth in second trimester, single or unspecified fetus 20 weeks gestation of Procedures US Ob 14 Weeks Or Over Margareth Herrera DO [address] [place] [address] Phone: tel: fax: [place] [facility] Referral ID Status Reason Start Date Expiration Date Visits Re quested Visits Authorized [id number] Closed 04/14/2023 05/13/2024 1 1 Encounter Details Date Type Department Care Team (Late st Contact Info) Description 04/14/2023 2:30 PM CDT Office Visit [facility] [address] [place] [address] Margareth Herrera DO [address] [address] care, subsequent , second trimester (Primary Dx); [...] of documented in this encounter Care Teams Lockstitch Machine Operator Relationship Specialty Start Date End Date No, Physician PCP - General 03/09/23 documented as of this encounter
--- OUTSIDE RECORDS SUMMARY | 2024-10-17 11:57 | XMS_ITS | Encounter Summary ---
Author Organization [facility] Healthcare Address [address] [place] [address] Care Team Providers Care Adjunct Instructor In Economics Name Role Phone No, Physician Primary Care Provider [phone] Reason for Visit * Reason Comments Routine Visit Encounter Details Date Type Department Care Team (Late st Contact Info) Description 08/02/2023 10:20 AM CDT Office Visit [facility] [address] [place] [address] Margareth Herrera, DO [address] [place] [address] Encounter for supervision of other normal in [...] Protein, ur, POC Negative Negative Lot Number [id number] Urine 08/02/2023 10:3 0 AM CDT Margareth Herrera DO POINT OF CARE TEST YIMI MACIAS Final Result documented in this encounter Visit Diagnoses Diagnosis Encounter for supervision of other normal in third trimester- Primary documented in this encounter Care Teams Adjunct Instructor In Economics Relationship Specialty Start Date End Date No, Physician PCP - General 03/09/23 documented as of this encounter
--- OUTSIDE RECORDS SUMMARY | 2024-10-17 11:57 | XMS_ITS | Encounter Summary ---
Author Organization [facility] Healthcare Address [address] [place] [address] Care Team Providers Care Medical Center Director Name Role Phone No, Physician Primary Care Provider [phone] Encounter Details Date Type Department Care Team (Late st Contact Info) Description 08/09/2023 Telephone [facility] [address] [place] [address] Margareth Herrera, DO [address] [...] in her moms garage and went to [facility] and got checked out. Pt states feels fine and next appt is 08/17 does she need tocome in sooner or is 08/17 ok. CBN#[phone] documented in this encounter Plan of Treatment Not on file documented as of this encounter Visit Diagnoses Not on filedocumented in this encounter Care Teams Medical Center Director Relationship Specialty Start Date End Date No, Physician PCP - General 03/09/23 documented as of this encounter
--- OUTSIDE RECORDS SUMMARY | 2024-10-17 11:57 | XMS_ITS | Encounter Summary ---
Author Organization [facility] Medical Group Address [address] [place] [address] Care Team Providers Care Senior Recruiter Name Role Phone No, Physician Primary Care Provider [phone] Reason for Visit * Reason Comments Routine Visit Encounter Details Date Type Department Care Team (Late st Contact Info) Description 07/17/2023 9:50 AM CDT Office Visit [facility] [address] [place] [phone] Margareth Herrera, DO [address] [place] [address] Encounter for supervision of other normal in [...] AM CDT Pt doing well. Went to [place] last week for ctx and pelvic pressure [...] ur, POC Negative Negative Comment:n Lot Number [id number] Urine 07/17/2023 9:50 AM CDT us Margareth Herrera DO POINT OF CARE TEST YIMI CLEARYCAL Final Result documented in this encounter Visit Diagnoses Diagnosis Encounter for supervision of other normal in third trimester- Primary Request for sterilization documented in this encounter Care Teams Senior Recruiter Relationship Specialty Start Date End Date No, Physician PCP - General 03/09/23 documented as of this encounter
--- OUTSIDE RECORDS SUMMARY | 2024-10-17 11:57 | XMS_ITS | Encounter Summary ---
Author Organization [facility] Medical [facility] Address [address] [place] [address] Care Team Providers Care Fire Hydrant Operator Name Role Phone No, Physician Primary Care Provider [phone] Encounter Details Date Type Department Care Team (Late st Contact Info) Description 07/14/2023 Telephone [facility] [address] [place] [address] Margareth Herrera, DO [address] [place] [address] Social History Tobacco Use Types Packs/Day Years [...] let you know that she went to [facility] and was checked and that staff at [facility] stated she was thinning and dilated to a 1 and just wanted to let you know of this. documented in this encounter Plan of Treatment Not on file documented as of this encounter Visit Diagnoses Not on filedocumented in this encounter Care Teams Fire Hydrant Operator Relationship Specialty Start Date End Date No, Physician PCP - General 03/09/23 documented as of this encounter
--- OUTSIDE RECORDS SUMMARY | 2024-10-17 11:57 | XMS_ITS | Encounter Summary ---
Author Organization [facility] Medical [facility] Address [address] [place] [address] Care Team Providers Care Emergency Care Tech Name Role Phone No, Physician Primary Care Provider [phone] Reason for Visit * Reason Comments Routine Visit Encounter Details Date Type Department Care Team (Late st Contact Info) Description 06/30/2023 11:30 AM CDT Office Visit [facility] [address] [place] [address] Margareth Herrera, DO [address] [place] [address] Encounter for supervision of other normal in [...] Protein, ur, POC Negative Negative Lot Number [id number] Urine 06/30/2023 11:3 7 AM CDT Margareth Herrera DO POINT OF CARE TEST SANDRAHortencia CLEARYCAL Final Result documented in this encounter Visit Diagnoses Diagnosis Encounter for supervision of other normal in third trimester- Primary documented in this encounter Care Teams Emergency Care Tech Relationship Specialty Start Date End Date No, Physician PCP - General 03/09/23 documented as of this encounter
--- OUTSIDE RECORDS SUMMARY | 2024-10-17 11:57 | XMS_ITS | Encounter Summary ---
Author Organization [facility] Medical Group Address [address] [place] [address] Care Team Providers Care Manager Review Name Role Phone No, Physician Primary Care Provider [phone] Encounter Details Date Type Department Care Team (Late st Contact Info) Description 06/22/2023 Telephone [facility] [address] [place] [address] Elena Veliz LPN Social History [...] filedocumented in this encounter Care Teams Manager Review Relationship Specialty Start Date End Date No, Physician PCP - General 03/09/23 documented as of this encounter
--- OUTSIDE RECORDS SUMMARY | 2024-10-17 11:57 | XMS_ITS | Encounter Summary ---
Author Organization [facility] Healthcare Address [address] [place] [address] Care Team Providers Care Screen Making Technician Name Role Phone No, Physician Primary Care Provider [phone] Reason for Visit * Reason Comments Contractions Encounter Details Date Type Department Care Team (Late st Contact Info) Description 09/01/2023 2:06 AM CDT - 09/01/2023 4:40 AM CDT Hospital Encounter [facility] [address] [place] [address] Margareth Herrera, DO [address] [place] [address] Discharge Disposition: Discharge to home or self [...] often do you attend chur ch or baptism services? More than 4 times per year 09/01/2023 Do you belong to any clubs o r organizations such as latter-day groups, unions, fraternal or athletic groups, or [...] staff should administer the PHQ-9) 0 09/01/2023 [facility] of Occupat ional [facility] - Occupational Stress Questionnaire Answer [...] in a care home (including now)? No 09/01/2023 Comments Yes [...] Everywhere. * Early Labor Signs (Discharge Care) (Jamaican) documented in this encounter Medications at Time [...] with complaints of contractions. Pt just left [facility] L&D, upon arrival SVE is /-2, [...] Final Re sult [facility] ([facility]) [address] [facility] [place] [address] * (ABNORMAL) Urinalysis reflex to microscopic and [...] tendency for uric acid stone formation. Source: [facility] Current Interpretive Data was last revised on [...] DERABLES Final Result [facility] ([facility]) [address] [facility] [place] [address] documented in this encounter Visit Diagnoses Not [...] 09/01/2023 documented in this encounter Care Teams Screen Making Technician Relationship Specialty Start Date End Date No, Physician PCP - General 03/09/23 documented as of this encounter
--- OUTSIDE RECORDS SUMMARY | 2024-10-17 11:57 | XMS_ITS | Encounter Summary ---
Author Organization [facility] Medical Group Address [address] [place] [address] Care Team Providers Care Cone Sewer Name Role Phone No, Physician Primary Care Provider [phone] Encounter Details Date Type Department Care Team (Late st Contact Info) Description 05/03/2023 Telephone [facility] [address] [place] [address] Denise Venegas Social History Tobacco [...] on filedocumented in this encounter Care Teams Cone Sewer Relationship Specialty Start Date End Date No, Physician PCP - General 03/09/23 documented as of this encounter
--- OUTSIDE RECORDS SUMMARY | 2024-10-17 11:57 | XMS_ITS | Encounter Summary ---
Author Organization [facility] Healthcare Address [address] [place] [address] Care Team Providers Care Branch Logistics Supervisor Name Role Phone No, Physician Primary Care Provider [phone] Reason for Visit * Reason Comments Routine Visit Encounter Details Date Type Department Care Team (Late st Contact Info) Description 08/22/2023 10:10 AM CDT Office Visit [facility] [address] [place] [address] Margareth Herrera, DO [address] [place] [address] Encounter for supervision of other normal in [...] often do you attend chur ch or christianity services? More than 4 times per year 08/22/2023 Do you belong to any clubs o r organizations such as synagogue groups, unions, fraternal or athletic groups, or [...] staff should administer the PHQ-9) 0 08/22/2023 [facility] of Occupat ional [facility] - Occupational Stress Questionnaire Answer [...] slept in a custodial (including now)? No 08/22/2023 Comments Yes Sex [...] Report: Negative CERNER Comment:Testing performed by : [facility], [address] [facility], [place]., [address] Vaginal/Rectal 08/22/2023 3: 28 PM CDT 08/23/2023 3:22 AM CDT Narrative OSCAR ARMENDARIZ - 08/25/2023 9:25 PM CDT Testing performed by [facility] Microbiology Laboratory ([phone]). us Margareth Herrera DO LAB MICROBIOLOGY - GENE RAL ORDERABLES Final Result OSCAR [address] Department [place] [address] * (ABNORMAL) POCT urine glucose and protein (08/22/2023 10:03 AM CDT) Glucose, ur, POC Negative Negative MG/DL Protein, ur, POC 1+(A) Negative Lot Number [id number] Urine 08/22/2023 10:0 3 AM CDT us Margareth Herrera DO POINT OF CARE TEST ORDE RABLES Final Result documented in this encounter Visit Diagnoses Diagnosis Encounter for supervision of other normal in third trimester- Primary 36 weeks gestation of Encounter for supervision of other normal in third trimester 36 weeks gestation of documented in this encounter Care Teams Branch Logistics Supervisor Relationship Specialty Start Date End Date No, Physician PCP - General 03/09/23 documented as of this encounter
--- OUTSIDE RECORDS SUMMARY | 2024-10-17 11:57 | XMS_ITS | Encounter Summary ---
Author Organization [facility] Healthcare Address [address] [place] [address] Care Team Providers Care Residential Support Specialist Name Role Phone No, Physician Primary Care Provider [phone] Margareth Herrerabeth DO Unavailable [phone] Reason for Visit * Auth/Cert (Routine) Specialty Diagnoses / Procedures Referred By Lenora t Referred To Contact Diagnoses Request for sterilization Request for sterilization [Z30.2] Procedures MN LIG/TRNSXJ FLP TUBE ABDL/VAG SPX SALPINGECTOMY Referral ID Status Reason Start Date Expiration Date Visits Re quested Visits Authorized [id number] 1 1 Encounter Details Date Type Department Care Team (Late st Contact Info) Description 09/05/2023 7:47 AM AWS ARCHITECT Anesthesia Event [facility] Operating Room [address] [place] [address] [place] [address] [facility] [place] [address] [place] [address] [id number] Anesthesia Record Procedure Summary Procedure Name Responsible [...] Bilateral; Abdomen; 10/01/24 (Retired LDA, Removed/Completed by [facility] with LDA Utility); 1213 (Retired LDA, Removed/Completed by [facility] with LDA Utility) 09/05/23 0828 by Ekaterina [...] How often do you attend chur or orthodox services? More than 4 times per year [...] staff should administer the PHQ-9) 0 09/01/2023 [facility] of Occupat ional Health - Occupational Stress [...] in a half-way (including now)? No 09/01/2023 Personal Safety Answer [...] Procedure Summary Date: 09/05/23 Room / Location: [facility] OR [address] [place] [address] OPERATING ROOM Anesthesia Start: 746 Anesthesia Stop: [...] Nausea/Vomiting status: none No notable events documented. ARCHITECT * Anesthesia Procedure Notes - Larry Parsons CRNA - 09/05/2023 8:00 AM AWS ARCHITECT Associated Order(s): Airway Airway Patient location: OR Urgency: elective Indications for airway management: anesthesia Difficult airway: no Staff: Placed by: HEALTHCARE NETWORK CONSULTANT: Larry Parsons CRNA Emergent airway documentation: Risks [...] with: silk tape Number of attempts: 1 ARCHITECT * Anesthesia Preprocedure Evaluation - Elisa Betancur MD - 09/05/2023 6:59 AM AWS ARCHITECT Images from the original note were not included. Anesthesia Evaluation Hannah Luis is a 28 y.o. female Procedure(s): SALPINGECTOMY Pre-Op Diagnosis Codes: * Request for sterilization [Z30.2] HISTORY Past Medical History Information obtained from: patient and chart. Neurological + Psychiatric history - anxiety Pertinent negatives: seizures and CVA/stroke Cardiovascular Pertinent negatives: hypertension ; [place] ; pacemaker/ICD and negative for CHF Respiratory [...] Medication protocol when under care of a HEALTHCARE NETWORK CONSULTANT Planned anesthesia: General Comments: Low dose prop gtt intra-op for PONV Induction: Induction: intravenous. Postoperative Plan: No postoperative mechanical ventilation intended. Informed Consent: Discussed plan with HEALTHCARE NETWORK CONSULTANT. Anesthesia plan and risks discussed with patient. Consent and Attending signature: I and/or my designee have discussed the anesthesia plan, benefits, possible alternatives, parental presence at time of induction (if indicated), and clinically relevant risks that may include dental injury, unintentional awareness, and/or other complications. The patient and/or parent/legal guardian understand, and agree to proceed. All questions answered. ARCHITECT ARCHITECT documented in this encounter Plan of Treatment Not on file documented as of this encounter Procedures Procedure Name Priority Date/Time Associated Diagnosis Comments MN AN ELECTIVE ENDOTRACHEAL AIRWAY Routine 09/05/2023 8:00 AM AWS ARCHITECT documented in this encounter Results * MN AN ELECTIVE ENDOTRACHEAL AIRWAY (09/05/2023 8:00 AM AWS ARCHITECT) Narrative Larry Parsons CRNA - 09/05/2023 8:00 AM AWS ARCHITECT Larry Parsons CRNA ? 09/05/2023 ??8:00 AM Airway Patient location: OR Urgency: elective Indications for airway management: anesthesia Difficult airway: no Staff: Placed by: HEALTHCARE NETWORK CONSULTANT: Larry Parsons CRNA Emergent airway documentation: Risks [...] 0757, Anesthesia Intra-op Given 09/05/2023 7:57 AM AWS ARCHITECT 2,000 mg dexAMETHasone (DECADRON) injection solution intravenous, Administer over 2 Minutes, As needed, Starting on Mon09/05/23 at 0755, Anesthesia Intra-op Given 09/05/2023 7:55 AM AWS ARCHITECT 10 mg dexmedeTOMIDine in 0.9% sodium chloride (PRECEDEX) 200 mcg/50 mL (4 mcg/mL) infusion (premix) intravenous, As needed, Starting on Mon09/05/23 at 0809, Anesthesia Intra-op Given 09/05/2023 8:17 AM AWS ARCHITECT 4 mcg Given 09/05/2023 8:12 AM AWS ARCHITECT 4 mcg Given 09/05/2023 8:09 AM AWS ARCHITECT 4 mcg diphenhydrAMINE (BENADRYL) 50 mg/mL injection intravenous, Administer over 2 Minutes, As needed, Starting on Mon09/05/23 at 0755, Anesthesia Intra-op Given 09/05/2023 7:55 AM AWS ARCHITECT 25 mg esmoloL (BREVIBLOC) injection intravenous, Administer over 1 Minutes, As needed, Starting on Mon09/05/23 at 0751, Anesthesia Intra-op Given 09/05/2023 7:51 AM AWS ARCHITECT 50 mg fentaNYL (SUBLIMAZE) preservative free injection intravenous, As needed, Starting on Mon09/05/23 at 0807, Anesthesia Intra-op Given 09/05/2023 8:53 AM AWS ARCHITECT 50 mcg Given 09/05/2023 8:07 AM AWS ARCHITECT 50 mcg ketamine (KETALAR) 50 mg/5 mL (10 mg/mL) in sodium chloride 0.9% (premix) intravenous, As needed, Starting on Mon09/05/23 at 0802, Anesthesia Intra-op Given 09/05/2023 8:02 AM AWS ARCHITECT 30 mg ketorolac (TORADOL) 30 mg/mL (1 mL) injection intravenous, As needed, Starting on Mon09/05/23 at 0755, Anesthesia Intra-op Given 09/05/2023 7:55 AM AWS ARCHITECT 30 mg Lactated Ringer's (LR) infusion 30 mL/hr, intravenous, Continuous, Starting on Mon09/05/23 at 0645, Pre-Op New Bag 09/05/2023 7:46 AM AWS ARCHITECT lidocaine (XYLOCAINE) 20 mg/mL (2 %) preservative free injection intravenous, As needed, Starting on Mon09/05/23 at 0750, Anesthesia Intra-op Given 09/05/2023 7:50 AM AWS ARCHITECT 100 mg midazolam (VERSED) 1 mg/mL preservative free injection intravenous, Administer over 2 Minutes, As needed, Starting on Mon09/05/23 at 0746, Anesthesia Intra-op Given 09/05/2023 7:46 AM AWS ARCHITECT 2 mg ondansetron (ZOFRAN) injection intravenous, Administer over 2 Minutes, As needed, Starting on Mon09/05/23 at 0806, Anesthesia Intra-op Given 09/05/2023 8:06 AM AWS ARCHITECT 4 mg propofoL (DIPRIVAN) 10 mg/mL IV intravenous, As needed, Starting on Mon09/05/23 at 0751, Anesthesia Intra-op Given 09/05/2023 8:38 AM AWS ARCHITECT 20 mg Given 09/05/2023 8:34 AM AWS ARCHITECT 20 mg Given 09/05/2023 8:30 AM AWS ARCHITECT 20 mg rocuronium (ZEMURON) injection intravenous, As needed, Starting on Mon09/05/23 at 0803, Anesthesia Intra-op Given 09/05/2023 8:03 AM AWS ARCHITECT 30 mg succinylcholine (ANECTINE) injection intravenous, As needed, Starting on Mon09/05/23 at 0751, Anesthesia Intra-op Given 09/05/2023 7:51 AM AWS ARCHITECT 160 mg sugammadex (BRIDION) 100 mg/mL intravenous solution intravenous, As needed, Starting on Mon09/05/23 at 0841, Anesthesia Intra-op Given 09/05/2023 8:41 AM AWS ARCHITECT 200 mg documented in this encounter Care Teams Residential Support Specialist Relationship Specialty Start Date End Date No, Physician PCP - General 03/09/23 Margareth Herrera DO [address] [place], [place] [address] Consulting Physician Obstetrics and Gynecology 09/05/23 documented as of this encounter
--- OUTSIDE RECORDS SUMMARY | 2024-10-17 11:57 | XMS_ITS | Encounter Summary ---
Author Organization [facility] Medical Group Address [address] [address] Care Team Providers Care Hand Spring Repairer Name Role Phone No, Physician Primary Care Provider [phone] Encounter Details Date Type Department Care Team (Late st Contact Info) Description 06/16/2023 11:10 AM CDT Lab [facility] [address] [place] [address] care, subsequent , third trimester (Primary [...] of documented in this encounter Care Teams Hand Spring Repairer Relationship Specialty Start Date End Date No, Physician PCP - General 03/09/23 documented as of this encounter
--- OUTSIDE RECORDS SUMMARY | 2024-10-17 11:57 | XMS_ITS | Encounter Summary ---
Author Organization [facility] Healthcare Address [address] [place] [address] Care Team Providers Care Heat Treater Helper Name Role Phone No, Physician Primary Care Provider [phone] Encounter Details Date Type Department Care Team (Late st Contact Info) Description 08/17/2023 Telephone [facility] [address] [place] [address] Elena Veliz LPN Social History [...] filedocumented in this encounter Care Teams Heat Treater Helper Relationship Specialty Start Date End Date No, Physician PCP - General 03/09/23 documented as of this encounter
--- OUTSIDE RECORDS SUMMARY | 2024-10-17 11:57 | XMS_ITS | Encounter Summary ---
Author Organization [facility] Healthcare Address [address] [place] [address] Care Team Providers Care Greens Planter Name Role Phone No, Physician Primary Care Provider Encounter Details Date Type Department Care Team (Late st Contact Info) Description 06/22/2023 Orders Only [address] [address] Margareth Herrera, DO [address] [place] [address] Social History Tobacco Use Types Packs/Day Years [...] on filedocumented in this encounter Care Teams Greens Planter Relationship Specialty Start Date End Date No, Physician PCP - General 03/09/23 documented as of this encounter
--- OUTSIDE RECORDS SUMMARY | 2024-10-17 11:57 | XMS_ITS | Encounter Summary ---
Author Organization [facility] Healthcare Address [address] [place] [address] Care Team Providers Care Plasma Table Operator Name Role Phone No, Physician Primary Care Provider [phone] Encounter Details Date Type Department Care Team (Latest Contact Info) Description 08/22/2023 10:04 AM CDT - 08/22/2023 11:59 PM CDT Hospital Encounter [address] [id number] Encounter for supervision of other normal in [...] week 08/22/2023 How often do you attend [facility] or hoahaoism services? More than 4 times per year 08/22/2023 Do you belong to any clubs o r organizations such as samaritan groups, unions, fraternal or athletic groups, or [...] staff should administer the PHQ-9) 0 08/22/2023 [facility] of Occupat ional Health - Occupational [...] Negative OSCAR ARMENDARIZ Comment:Testing performed by : [facility], [address] [place] [address]., [address] Vaginal/Rectal 08/22/2023 3: 28 PM CDT 08/23/2023 3:22 AM CDT Narrative OSCAR ARMENDARIZ - 08/25/2023 9:25 PM CDT Testing performed by [facility] Microbiology Laboratory ([phone]). Margareth Herrera DO LAB MICROBIOLOGY - GENE RAL ORDERABLES Final Result OSCAR ARMENDARIZ [address] Department [place] [address] documented in this encounter Visit Diagnoses Diagnosis Encounter for supervision of other normal in third trimester 36 weeks gestation of documented in this encounter Care Teams Plasma Table Operator Relationship Specialty Start Date End Date No, Physician PCP - General 03/09/23 documented as of this encounter
--- OUTSIDE RECORDS SUMMARY | 2024-10-17 11:57 | XMS_ITS | Encounter Summary ---
Author Organization [facility] Medical Group Address [address] [facility] [address] [place] [address] Care Team Providers Care Envelope Machine Adjuster Name Role Phone No, Physician Primary Care Provider Reason for Visit * Diagnostic Imaging (Routine) - Closed Specialty Diagnoses / Procedures Referred By Lenora pacheco Referred To Contact Diagnoses Encounter for maternal care for excessive growth in second trimester, single or unspecified fetus 20 weeks gestation of Procedures US Ob 14 Weeks Or Over Margareth Herrera, DO [address] [place] [address] Phone: tel: fax: [facility] Referral ID Status Reason Start Date Expiration Date Visits Re quested Visits Authorized [id number] Closed 04/14/2023 05/13/2024 1 1 Encounter Details Date Type Department Care Team (Latest Contact Info) Description 04/27/2023 2:40 PM CDT Ancillary Procedure [facility] [address] [place] [id number] Encounter for maternal care for excessive growth [...] of documented in this encounter Care Teams Envelope Machine Adjuster Relationship Specialty Start Date End Date No, Physician PCP - General 03/09/23 documented as of this encounter
--- OUTSIDE RECORDS SUMMARY | 2024-10-17 11:57 | XMS_ITS | Encounter Summary ---
Author Organization [facility] Healthcare Address [address] [place] [address] Care Team Providers Care Print Line Operator Name Role Phone No, Physician Primary Care Provider [phone] Margareth Herrera DO Unavailable [phone] Reason for Visit * Auth/Cert (Routine) Specialty Diagnoses / Procedures Referred By Lenora t Referred To Contact Diagnoses Request for sterilization Request for sterilization [Z30.2] Procedures MS LIG/TRNSXJ FLP TUBE ABDL/VAG SPX SALPINGECTOMY Referral ID Status Reason Start Date Expiration Date Visits Re quested Visits Authorized [id number] 1 1 Encounter Details Date Type Department Care Team (Late st Contact Info) Description 09/05/2023 7:30 AM GIRLS SWIMMING COACH - 09/05/2023 8:45 AM GIRLS SWIMMING COACH Surgery [facility] Operating Room [address] [place] [address] Margareth Herrera DO [address] [address] SALPINGECTOMY Surgery Details Date/Time Status Location OR [...] How often do you attend chur or mandaeism services? More than 4 times per year 09/01/2023 Do you belong to any clubs o r organizations such as congregational groups, unions, fraternal or athletic groups, or [...] should administer the PHQ-9) 0 09/01/2023 [facility] [place] [facility] - Occupational Stress Questionnaire Answer Date [...] Comments Blood Pressure 136/70 09/05/2023 6:20 AM GIRLS SWIMMING COACH Pulse 66 09/05/2023 6:20 AM GIRLS SWIMMING COACH Temperature 36.2 ??C (97.1 ??F) 09/05/2023 6:20 AM CS T Respiratory Rate 18 09/05/2023 6:20 AM GIRLS SWIMMING COACH Oxygen Saturation 98% 09/05/2023 6:20 AM GIRLS SWIMMING COACH Inhaled Oxygen Concentration - - Weight 75.8 kg (167 lb 1.7 oz) 09/05/2023 6:20 A M GIRLS SWIMMING COACH Height 165.1 cm (5' 5 ) 09/05/2023 6:20 AM GIRLS SWIMMING COACH Body Mass Index 27.81 09/05/2023 6:20 AM GIRLS SWIMMING COACH documented in this encounter Discharge Instructions * Attachments The following attachments cannot be sent through Care Everywhere. * General Anesthesia (Discharge Care) (Lithuanian) documented in this encounter Medications at Time [...] She was originally scheduled for induction at [facility] yesterday with a plan for PP BS today but ended up delivering [facility] Monday night. Delivery was uncomplicated. [...] and even . Margareth Herrera DO 09/05/23 S SWIMMING COACH documented in this encounter Miscellaneous Notes * Perioperative Nursing Note - Sherita Conley RN - 09/05/2023 10:08 AM GIRLS SWIMMING COACH Pt ambulatory with no difficulty to the restroom, was able to void prior to discharge, small amountof drainage seen on elena pad. S SWIMMING COACH * Perioperative Nursing Note - Sherita Conley RN - 09/05/2023 9:38 AM GIRLS SWIMMING COACH Pt having pain of 05/08, Dr. Herrera made aware, order for percocet placed. S SWIMMING COACH * Op Note - Margareth Herrera DO [...] She was originally scheduled for induction at [facility] yesterday with a plan for PP BS [...] DO, was present for the entire procedure. S SWIMMING COACH * Pre-Procedure Instructions - Ashli De Dios RN - 09/04/2023 2:19 PM GIRLS SWIMMING COACH We are pleased that you and your doctor have chosen [facility] for your surgery. We hope [...] morning of surgery Use no make-up, nail australian, lotions, oils or powders on your skin. [...] posted at the top of the page. S SWIMMING COACH documented in this encounter Plan of Treatment Not on file documented as of this encounter Procedures Procedure Name Priority Date/Time Associated Diagnosis Comments SURGICAL PATHOLOGY Routine 09/05/2023 9: 49 AM GIRLS SWIMMING COACH Request for sterilization SALPINGECTOMY 09/05/2023 7:46 AM GIRLS SWIMMING COACH Request for sterilization DIFFERENTIAL AUTO STAT 09/05/2023 6:3 9 AM GIRLS SWIMMING COACH CBC WITH AUTO DIFFERENTIAL STAT 09/05/2023 6:39 AM GIRLS SWIMMING COACH documented in this encounter Results * Surgical pathology (09/05/2023 9:49 AM GIRLS SWIMMING COACH) Tissue (Fallopian tube, sterilization) 09/05/2023 8:03 AM GIRLS SWIMMING COACH Narrative PATHOLOGY [facility] ([facility]) - 09/06/2023 10:35 AM GIRLS SWIMMING COACH EPIC results best viewed via link to PDF [facility] Department of Pathology [address] [place] [address] Note to Patients: This report may contain [...] Final Report Patient Name: ??HANNAH PYLE Address: ??[facility] [address], ??[place], [place] ?? Gender: ??F : ??1995 (Age: 28) Service: ??Surgery Location: ??[facility] Hospital #: ??[id number] Patient Type: ??[facility] IP Accession # ?[id number] Taken: ??09/05/2023 Received: ??09/05/2023 Accessioned: ??09/05/2023 Reported: [...] determined by the Surgical Pathology Department at [facility] as part of an ongoing it quality analyst program and in compliance with federally [...] characteristics determined by the Surgical Pathology Department [facility]. ??It has not been cleared or approved by the U. S. Food and Drug Administration. Note for decalcified specimens: This assay has not been validated on decalcified tissues. Results should be interpreted with caution given the possibility of false negativity on decalcified specimens Margareth Herrera DO LAB PATHOLOGY ORDERABLE S Final Result PATHOLOGY [facility] ([facility]) [address] [place], [place] [id number] * Differential, auto (09/05/2023 6:39 AM GIRLS SWIMMING COACH) Neutrophil abs 4.4 1.7 - 6.5 K/cumm [facility]) Imm gran abs 0.0 0.0 - 0.1 [...] revised on 2018. Blood 09/05/2023 6:39 AM GIRLS SWIMMING COACH 09/05/2023 6:43 AM GIRLS SWIMMING COACH Margareth Herrera DO LAB BLOOD ORDERABLES Fi nal Result [facility]ER [facility]) [address] [facility] [place] [address] * (ABNORMAL) CBC with auto differential (09/05/2023 6:39 AM GIRLS SWIMMING COACH) WBC 7.6 3.8 - 9.9 K/cumm CERNER [...] [facility]) Blood 09/05/2023 6:39 AM GIRLS SWIMMING COACH 09/05/2023 6:43 AM GIRLS SWIMMING COACH Margareth Herrera DO LAB BLOOD ORDERABLES Fi nal Result [facility]SCAR [facility]) [address] [facility] Department [place] [address] documented in this encounter Visit Diagnoses Diagnosis [...] at 0829, Intra-Op Given 09/05/2023 8:38 AM GIRLS SWIMMING COACH 10 mL Surgical Site fentaNYL (SUBLIMAZE) preservative free injection 50 mcg 50 mcg, intravenous, Every 10 min PRN, 1st line for pain, Starting on Mon09/05/23 at 0906, Phase I, Notify Anesthesiologist if total PACU dose reaches 100 mcg and pain score 5/10 or more., Indications: PainIndications:Pain Given 09/05/2023 9:21 AM GIRLS SWIMMING COACH 50 mcg Given 09/05/2023 9:09 AM GIRLS SWIMMING COACH 50 mcg Lactated Ringer's (LR) infusion 30 mL/hr, intravenous, Continuous, Starting on Mon09/05/23 at 0645, Pre-Op New Bag 09/05/2023 7:46 AM GIRLS SWIMMING COACH oxyCODONE-acetaminophen (PERCOCET) 5-325 mg per tablet 1 tablet 1 tablet, oral, Once, On Mon09/05/23 at 1015, For 1 dose, Indications: PainIndications:Pain Given 09/05/2023 9:52 AM GIRLS SWIMMING COACH 1 tablet sodium chloride 0.9% irrigation As needed, Starting on Mon09/05/23 at 0820, Intra-Op Given 09/05/2023 8:20 AM GIRLS SWIMMING COACH 1,000 mL Surgical Site documented in this [...] may contain times in both CDT and GIRLS SWIMMING COACH. Scheduled Medication Order 09/03/2023 09/04/2023 09/05/2023 ceFAZolin [...] 09/05/2023 documented in this encounter Care Teams Print Line Operator Relationship Specialty Start Date End Date No, Physician PCP - General 03/09/23 Margareth Herrera DO [address] [place] [address] Consulting Physician Obstetrics and Gynecology 09/05/23 documented as of this encounter
--- OUTSIDE RECORDS SUMMARY | 2024-10-17 11:57 | XMS_ITS | Encounter Summary ---
Author Organization [facility] Healthcare Address [address] [place] [address] Care Team Providers Care Academic Support Center Director Name Role Phone No, Physician Primary Care Provider [phone] Reason for Visit * Reason Onset Date Comments No show Ret OB appointment 08/31/2023 Encounter Details Date Type Department Care Team (Late st Contact Info) Description 08/31/2023 Telephone [facility] [address] [place] [phone] Margareth Herrera, DO [address] [place] [address] No show Ret OB appointment Social History [...] often do you attend chur ch or anglican services? More than 4 times per year 09/01/2023 Do you belong to any clubs o r organizations such as restorationism groups, unions, fraternal or athletic groups, or [...] staff should administer the PHQ-9) 0 09/01/2023 [facility] of Occupat ional [facility] - Occupational Stress Questionnaire Answer [...] on filedocumented in this encounter Care Teams Academic Support Center Director Relationship Specialty Start Date End Date No, Physician PCP - General 03/09/23 documented as of this encounter
--- OUTSIDE RECORDS SUMMARY | 2024-10-17 11:57 | XMS_ITS | Encounter Summary ---
Author Organization [facility] Medical Group Address [address] [place] [address] Care Team Providers Care Freight Dispatcher Name Role Phone No, Physician Primary Care Provider [phone] Encounter Details Date Type Department Care Team (Late st Contact Info) Description 05/15/2023 Orders Only [facility] [address] [place] [address] Hannah Pop MD [address] [address] Encounter for supervision of other [...] laboratory. OSCAR ARMENDARIZ Comment:Testing performed by : [facility], [address] [place]., [address] Organism GROWTH INDICATES CONTAM WITH PERIURETHRAL SHEKHAR. OSCAR ARMENDARIZ Urine, clean voided 06/16/2023 3:58 PM CDT 06/16/2023 10:43 PM CDT Narrative OSCAR ARMENDARIZ - 06/18/2023 11:15 AM CDT Testing performed by [facility] Microbiology Laboratory ([phone]) us Hannah Pop MD LAB MICROBIOLOGY - NERAL ORDERABLES Final Result OSCAR ARMENDARIZ [address] [place] [address] * HIV 1/2 Antibody plus [...] Final Result Performing Organization Address [facility] de Phone Number FERNANDOTYREL ARMENDARIZ [address] [place] [address] * Glucose tolerance testing 50 gram gestational [...] Final Result Performing Organization Address [facility] de Phone Number FERNANDOTYREL ARMENDARIZ [address] [address] [place] [address] * (ABNORMAL) CBC with auto differential (06/16/2023 10:41 AM CDT) WBC 9.2 3.8 - 9.9 K/cumm [facility] Hgb 11.4(L) 11.9 - 15.5 g/dL OSCAR Hct 35.0(L) 35.6 - 45.5 % OSCAR Plt 255 150 - 400 K/cumm [facility] MPV 9.9 9.1 - 12.3 fL [facility] RBC 3.77(L) 3.90 - 5.20 M/cumm [facility] MCV 92.8 81.3 - 96.4 fL [facility] MCH 30.2 27.1 - 33.3 pg [facility] MCHC 32.6 32.3 - 35.7 g/dL [facility] RDW CV 12.7 11.1 - 14.9 % [facility] RDW SD 43.6 35.7 - 48.1 fL [facility] NRBC abs 0.00 0.00 - 0.01 K/cumm [facility] Blood 06/16/2023 10:4 1 AM CDT 06/16/2023 6:47 PM CDT us Hannah Pop MD LAB BLOOD ORDERABLES Final Result [facility] [address] Department of Laboratories [place] [phone] documented in this encounter Visit Diagnoses Diagnosis Encounter for supervision of other normal in third trimester- Primary 27 weeks gestation of Encounter for supervision of other normal in third trimester 27 weeks gestation of Acute vaginitis Unspecified vaginitis and vulvovaginitis documented in this encounter Care Teams Freight Dispatcher Relationship Specialty Start Date End Date No, Physician PCP - General 03/09/23 documented as of this encounter
--- OUTSIDE RECORDS SUMMARY | 2024-10-17 11:57 | XMS_ITS | Encounter Summary ---
Author Organization [facility] Healthcare Address [address] [place] [address] Care Team Providers Care Auto Dismantler Name Role Phone No, Physician Primary Care Provider [phone] Encounter Details Date Type Department Care Team (Late st Contact Info) Description 08/29/2023 Telephone [facility] [address] [place] [address] Elena Veliz LPN Social History [...] How often do you attend chur or anabaptist services? 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 * Telephone Encounter - Elena Veliz LPN - 08/29/2023 1:15 PM CDT ----- Message from Margareth Herrera DO sent at 08/29/2023 12:42 PM CDT ----- Please inform the patient her GBS was negative. documented in this encounter Plan of Treatment Not on file documented as of this encounter Visit Diagnoses Not on filedocumented in this encounter Care Teams Auto Dismantler Relationship Specialty Start Date End Date No, Physician PCP - General 03/09/23 documented as of this encounter
--- OUTSIDE RECORDS SUMMARY | 2024-10-17 11:57 | XMS_ITS | Encounter Summary ---
Author Organization [facility] Healthcare Address [address] [place] [address] Care Team Providers Care Planning Associate Name Role Phone No, Physician Primary Care Provider [phone] Reason for Visit * Reason Comments Problem Saw Dr. Herrera today, SVE 5cm. Contracted all weekend. Encounter Details Date Type Department Care Team (Late st Contact Info) Description 08/22/2023 12:19 PM CDT - 08/22/2023 2:35 PM CDT Hospital Encounter [facility] [address] [place] [address] Margareth Herrera, DO [address] [address] Discharge Disposition: Discharge to home or self [...] often do you attend chur ch or yarsanism services? More than 4 times per year 08/22/2023 Do you belong to any clubs o r organizations such as taoism groups, unions, fraternal or athletic groups, or [...] [facility] of Occupat ional [facility] - Occupational Stress Questionnaire Answer Date [...] slept in a half-way (including now)? No 08/22/2023 Comments Yes Sex [...] Everywhere. * Early Labor Signs (AfterCare(R) Instructions(ER/ED)) (Bangladeshi) * at 35 to 38 Weeks (Discharge Care) (Bangladeshi) documented in this encounter Discharge Disposition Disposition [...] by mouth daily Therapy completed 05/15/2023 08/22/2023 [id number]-folic (Kosher Plus Iron) 30 mg iron- 1 mg tablet Take 1 tablet by mouth daily Therapy completed 03/06/2021 08/22/2023 documented as of this encounter Orders Discharge Count Last Ordered Date First Orde red Date DISCHARGE PATIENT 1 08/22/2023 documented in this encounter Care Teams Planning Associate Relationship Specialty Start Date End Date No, Physician PCP - General 03/09/23 documented as of this encounter
--- OUTSIDE RECORDS SUMMARY | 2024-10-17 11:57 | XMS_ITS | Encounter Summary ---
Author Organization [facility] Healthcare Address [address] [place] [address] Care Team Providers Care Lifeguard Name Role Phone No, Physician Primary Care Provider [phone] Reason for Visit * Reason Comments Contractions Encounter Details Date Type Department Care Team (Late st Contact Info) Description 09/02/2023 11:18 AM CDT - 09/02/2023 12:58 PM CDT Hospital Encounter [facility] 1 [place] [address] Margareth Herrera, DO [address] [place] [address] Discharge Disposition: Discharge to home or self [...] often do you attend chur ch or holiness services? More than 4 times per year 09/01/2023 Do you belong to any clubs o r organizations such as adventist groups, unions, fraternal or athletic groups, or [...] [facility] of Occupat ional [facility] - Occupational Stress Questionnaire Answer [...] slept in a fci (including now)? No 09/01/2023 Comments Yes Sex [...] - 09/02/2023 12:53 PM CDT Return to [facility] Monday09/04/23 at 0600 for induction of labor. * Attachments The following attachments cannot be sent through Care Everywhere. * at 35 to 38 Weeks (Discharge Care) ([place]osta [place]ican) documented in this encounter Medications at Time [...] which was unchanged from previous SVE at [place] of /-2. This RN took over pt [...] ORDERABLES Fi nal Result OSC[facility] ([place]) [address] [facility] Department [place] [address] * (ABNORMAL) Urinalysis reflex to microscopic and [...] tendency for uric acid stone formation. Source: [facility] [email or web address] Current Interpretive Data was last revised on 2017 Protein, ur ql Negative Negative [facility] ([place]) Glucose, ur ql Negative Negative CERNE R [...] GENE RAL ORDERABLES Final Result OSCAR [facility] ([place]) [address] [facility] Department [place] [address] documented in this encounter Visit Diagnoses Not on filedocumented in this encounter Orders Discharge Count Last Ordered Date First Orde red Date DISCHARGE PATIENT 1 09/02/2023 documented in this encounter Care Teams Lifeguard Relationship Specialty Start Date End Date No, Physician PCP - General 03/09/23 documented as of this encounter
--- OUTSIDE RECORDS SUMMARY | 2024-10-17 11:57 | XMS_ITS | Encounter Summary ---
Author Organization [facility] Medical Group Address [address] [place] [address] Care Team Providers Care Guard Supervisor Name Role Phone No, Physician Primary Care Provider [phone] Encounter Details Date Type Department Care Team (Late st Contact Info) Description 07/06/2023 Telephone [facility] [address] [place] [address] Elena Veliz LPN Social History [...] on filedocumented in this encounter Care Teams Guard Supervisor Relationship Specialty Start Date End Date No, Physician PCP - General 03/09/23 documented as of this encounter
--- OUTSIDE RECORDS SUMMARY | 2024-10-17 11:58 | XMS_ITS | Encounter Summary ---
Author Organization [facility] Medical Group Address [address] [place] [address] Care Team Providers Care Hospice Bereavement Coordinator Name Role Phone No, Physician Primary Care Provider [phone] Encounter Details Date Type Department Care Team (Late st Contact Info) Description 03/30/2023 Telephone [facility] [address] [place] [address] Elena Veliz LPN Social History [...] on filedocumented in this encounter Care Teams Hospice Bereavement Coordinator Relationship Specialty Start Date End Date No, Physician PCP - General 03/09/23 documented as of this encounter
--- OUTSIDE RECORDS SUMMARY | 2024-10-17 11:58 | XMS_ITS | Encounter Summary ---
Author Organization [facility] Medical Group Address [address] [place] [address] Care Team Providers Care Dye And Chemical Coordinator Name Role Phone No, Physician Primary Care Provider [phone] Reason for Visit * Diagnostic Imaging (Routine) - Closed Specialty Diagnoses / Procedures Referred By Lenora pacheco Referred To Contact Diagnoses Encounter to determine viability of , single or unspecified fetus 15 weeks gestation of Procedures US OB 14 Weeks Or Over US Ob Under 14 Weeks Margareth Herrera, DO [address] [place] [address] Phone: tel: fax: [facility] Referral ID Status Reason Start Date Expiration Date Visits Re quested Visits Authorized [id number] Closed 03/09/2023 04/07/2024 1 1 Encounter Details Date Type Department Care Team (Latest Contact Info) Description 03/23/2023 9:10 AM CDT Ancillary Procedure [facility] [address] [facility] [place] [address] Encounter to determine viability of , single [...] of documented in this encounter Care Teams Dye And Chemical Coordinator Relationship Specialty Start Date End Date No, Physician PCP - General 03/09/23 documented as of this encounter
--- OUTSIDE RECORDS SUMMARY | 2024-10-17 11:58 | XMS_ITS | Encounter Summary ---
Author Organization [facility] Medical Group Address [address] [address] Care Team Providers Care Live Study Manager Name Role Phone No, Physician Primary Care Provider [phone] Encounter Details Date Type Department Care Team (Late st Contact Info) Description 03/23/2023 12:50 PM CDT Lab [facility] [address] [place] [phone] care, subsequent , second trimester; 15 weeks [...] of documented in this encounter Care Teams Live Study Manager Relationship Specialty Start Date End Date No, Physician PCP - General 03/09/23 documented as of this encounter
--- OUTSIDE RECORDS SUMMARY | 2024-10-17 11:58 | XMS_ITS | Encounter Summary ---
Author Organization [facility] Address [address] [address] Care Team Providers Care Printing Plate Setter Name Role Phone No, Physician Primary Care Provider [phone] Reason for Visit * Reason Comments New Patient Initial Visit Encounter Details Date Type Department Care Team (Late st Contact Info) Description 03/23/2023 10:10 AM CDT Office Visit [facility] [address] [place] [address] Margareth Herrera, DO [address] [address] care, subsequent , second trimester (Primary Dx); [...] MD 6 Current 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 Review of Systems Constitutional: [...] was counseled on the limitations of our [facility] and that can not guarantee the technologies division chair OB will offer a TOLAC if she [...] OSCAR ARMENDARIZ Comment: Testing performed by the [facility]. This assay detects Chlamydia trachomatis [...] GENE RAL ORDERABLES Final Result OSCAR ARMENDARIZ [address] Department [place] [address] * (ABNORMAL) Varicella Zoster IgG antibody Blood (03/23/2023 11:20 AM CDT) VZV IgG Nonreacti ve(A) Reactive CERNER Comment: Non-reactive: No detectable antibody to Varicella-zoster virus.??Such individuals are presumed to be uninfected and to be susceptible to primary infection. Testing performed by: [facility], [address] [place]., [address] Blood 03/23/2023 11:2 0 AM CDT 03/24/2023 12:51 PM CDT Margareth Herrera DO LAB MICROBIOLOGY - GENE RAL ORDERABLES Final Result Performing Organization Address [facility] Co de Phone Number [facility] [address] [address] [place] [address] * Urine culture Urine, clean voided (03/23/2023 11:20 AM CDT) Report Final Report: Less than 100,000 colonies/mL (clinically insignificant growth based on current clinical standards) OSCAR Comment:Testing performed by : [facility], [address] [facility], [place]., [address] Organism (CLINICALLY INSIGNIFICANT GROWTH CERNER Urine, clean voided 03/23/2023 11:20 AM CDT 03/23/2023 9:05 PM CDT Narrative [facility] - 03/25/2023 5:16 AM CDT Testing performed by [facility] Microbiology Laboratory ([phone]) Margareth Herrera DO LAB MICROBIOLOGY - GENE RAL ORDERABLES Final Result Performing Organization Address [facility] Co de Phone Number OSCAR [address] [address] [place] [address] * Type and screen (03/23/2023 11:20 AM CDT) Rinku, indirect Negative CERNER CH ABO Rh B Positive CERNER Blood 03/23/2023 11:2 0 AM CDT 03/23/2023 5:36 PM CDT Narrative [facility] - 03/23/2023 7:02 PM CDT Has the patient had Daratumumab or Isatuximab in the past 6 months?->Unknown Margareth Herrera LAB BLOOD BANK TEST ORD ERABLES Final Result Performing Organization Address City/[facility]/ZIP Co de Phone Number OSCAR [address] [address] Department of [place], [place] [id number] * Rubella IgG antibody (03/23/2023 11:20 AM CDT) Rubella IgG Reactive [facility] Comment: Reactive: Results suggest response to immunization or prior exposure to the virus. Testing performed by: [facility], [address] [place]., [address] Blood 03/23/2023 11:2 0 AM CDT 03/24/2023 12:51 PM CDT Margareth Herrera LAB MICROBIOLOGY - GENE RAL ORDERABLES Final Result Performing Organization Address City/[facility]/ZIP Co de Phone Number OSCAR [address] [address] [place] [address] * RPR Blood (03/23/2023 11:20 AM CDT) RPR Nonreactive Nonreactive [facility] Blood 03/23/2023 11:2 0 AM CDT 03/23/2023 5:32 PM CDT Margareth Herrera LAB MICROBIOLOGY - GENE RAL ORDERABLES Final Result OSCAR [address] [place] [address] * HIV 1/2 Antibody plus p24 Antigen Blood (03/23/2023 11:20 AM CDT) HIV 1/2 ab + p24 ag Nonreactive Nonreactive [facility] Comment: Nonreactive for HIV-1 antigen and HIV-1/HIV-2 antibodies. No laboratory evidence of HIV infection. If acute HIV infection is suspected, consider testing for HIV-1 RNA. Blood 03/23/2023 11:2 0 AM CDT 03/23/2023 5:32 PM CDT us Margareth Herrera DO LAB MICROBIOLOGY - GENE RAL ORDERABLES Final Result Performing Organization Address [facility] Phone Number [facility] [address] [address] [place] [address] * Hepatitis C antibody (03/23/2023 11:20 AM CDT) Hep C Ab Nonreactive Nonreactive [facility] Comment: Interpretive Data Nonreactive: Antibodies to HCV [...] Edited Result - Final Performing Organization Address [facility] de Phone Number [facility] [address] [address] [facility] [address] * Hepatitis B Surface Antigen (03/23/2023 11:20 AM CDT) HepBsAg Nonreactive Nonreactive [facility] Blood 03/23/2023 11:2 0 AM CDT 03/23/2023 5:32 PM CDT Margareth Herrera DO LAB MICROBIOLOGY - GENE RAL ORDERABLES Final Result Performing Organization Address [facility] Phone Number [facility] [address] Department [place] [address] * (ABNORMAL) Drugs of Abuse Screen, Urine without Confirmation (03/23/2023 11:20 AM CDT) Pathologist [facility] Amphetamine, ur Not Detected CutOff 500ng/mL OSCAR [...] 2018. Benzodiazepines, ur Not Detected CutOff 100ng/mL [facility] Comment: Interpretive Data - Benzodiazepines: ??Samples [...] LAB URINE ORDERABLES Fi nal Result [facility] [address] [facility] [place] [address] * CBC with auto differential (03/23/2023 11:20 AM CDT) WBC 8.1 3.8 - 9.9 K/cumm [facility] Hgb 11.9 11.9 - 15.5 g/dL [facility] Hct 35.9 35.6 - 45.5 % [facility] Plt 273 150 - 400 K/cumm [facility] MPV 10.1 9.1 - 12.3 fL [facility] RBC 4.04 3.90 - 5.20 M/cumm [facility] MCV 88.9 81.3 - 96.4 fL [facility] MCH 29.5 27.1 - 33.3 pg [facility] MCHC 33.1 32.3 - 35.7 g/dL [facility] RDW CV 13.7 11.1 - 14.9 % [facility] RDW SD 45.0 35.7 - 48.1 fL [facility] NRBC abs 0.00 0.00 - 0.01 K/cumm [facility] Blood 03/23/2023 11:2 0 AM CDT 03/23/2023 5:32 PM CDT Margareth Herrera DO LAB BLOOD ORDERABLES Fi nal Result [address] [place] [address] * Pap with reflex to High Risk HPV (03/23/2023 8:02 AM CDT) Thin prep (Pap test) 03/23/2023 8:02 AM CDT 03/23/2023 8:02 AM CDT Narrative PATHOLOGY CH - 03/28/2023 1:21 PM CDT [facility] Department of Pathology [address] [place] [address] Final Report Note to Patients: This [...] ??HANNAH LUIS Address: ??[address], ?? [place], [place] ?? Gender: ??F : ??1995 (Age: 27) Service: ?? Location: ?? Hospital #: ??[id number] Patient Type: ?? SPECIMEN Taken: ??03/23/2023 Received: ??03/23/2023 Accessioned:: ??03/24/2023 Reported: ??03/28/2023 Physician(s): Nessa Mcgee D.O. Diagnosis: SOURCE OF SPECIMEN ? Imaged Thinprep Pap Test w/ Reflex HPV - Validation Leader Cytologic Material: STATEMENT OF ADEQUACY ?- Specimen satisfactory for interpretation; endocervical/transformation zone component absent or ?insufficient ? GENERAL CATEGORIZATION: ?- Negative for intraepithelial lesion or malignancy ? INTERPRETATION: ?- Numerous inflammatory cells present ? DISHA Faulkner(ASCP) Report Electronically Reviewed and Signed Out By ??DISHA Faulkner(ASCP) ??03/28/2023 13:21:27Specimen(s) Received: A: Imaged Thinprep Pap Test w/ Reflex HPV - Validation Leader Cytologic Material Clinical History: Last Menstrual Period: [...] determined by the Surgical Pathology Department at [facility] as part of an ongoing lead quality control technician program and in compliance [...] DO LAB CYTOLOGY ORDERABLES Final Result PATHOLOGY [address] [place] [address] documented in this encounter Visit Diagnoses Diagnosis [...] may reflect changes made after this encounter. [id number],crb-f olic (Kosher Plus Iron) 30 mg iron- 1 mg tablet Take 1 tablet by mouth daily 03/06/2021 08/22/2023 added in this encounter Care Teams Printing Plate Setter Relationship Specialty Start Date End Date No, Physician PCP - General 03/09/23 documented as of this encounter
--- OUTSIDE RECORDS SUMMARY | 2024-10-17 11:58 | XMS_ITS | Encounter Summary ---
Author Organization [facility] Healthcare Address [address] [place] [address] Care Team Providers Care In School Suspension Coordinator Name Role Phone No, Physician Primary Care Provider [phone] Encounter Details Date Type Department Care Team (Latest Contact Info) Description 03/23/2023 11:20 AM CDT - 03/23/2023 11:59 PM CDT Hospital Encounter [address] [address] care, subsequent , second trimester; 15 weeks [...] this encounter Medications at Time of Discharge [id number] [id number] (Kosher Plus Iron) 30 mg iron- [...] CDT) C. trachomatis Not detected Not detected [facility] N. gonorrhoeae Not detected Not detected [facility] Comment: Testing performed by the [facility]. This assay detects Chlamydia [...] - GENE RAL ORDERABLES Final Result [facility] [address] [place] [address] * Differential, auto (03/23/2023 11:20 AM CDT) Neutrophil abs 5.5 1.7 - 6.5 K/cumm [facility] Imm gran abs 0.0 0.0 - 0.1 K/cumm [facility] Lymphocyte abs 1.7 0.8 - 3.3 K/cumm [facility] Monocyte abs 0.7 0.2 - 0.8 K/cumm [facility] Eosinophil abs 0.2 0.0 - 0.5 K/cumm [facility] Basophil abs 0.0 0.0 - 0.1 K/cumm [facility] Neutrophil pct 68.0 % [facility] Comment: Interpretive Data Percent cell count reference [...] DO LAB BLOOD ORDERABLES Fi nal Result [facility] [address] [place] [address] * Alpha fetoprotein, quad screen (03/23/2023 11:20 [...] CH [place] Used In Risk. Dates estimate [facility] alpha Fetoprotein 28.2 ng/mL [facility] Estriol, unconjugated 0.60 ng/mL [facility] HCG, qual 46.1 IUnits/m L [facility] Inhibin A, interpretation 289 pg/mL [facility] Down Syndrome Screen Risk Estimate. <270 [facility] Down Syndrome Maternal Age Risk. [facility] Trisomy 18 risk assessment <1/50,000 <1/100 [facility] alpha fetoprotein See Footnote [facility] Comment: Screen negative for neural tube defects, Down syndrome and trisomy 18. Additional Comments. Not Reported [facility] Recommended Follow Up. None. [facility] General Test Info. See Footnote [facility] [place] [...] developed and its performance characteristics determined by [facility] in a manner consistent with CLIA requirements. This test has not been cleared or approved by the U.S. Food and Drug Administration. Test Performed by: [facility] [place] [id number] [place] [address] Head Of Store Operations: Chris Cleveland M.D. Ph.D.; CLIA# [id number] RESULTS SUMMARY Normal risk [facility] NEURAL [...] CH INITIAL OR REPEAT TESTING Initial testing [facility] PH[facility]ICIAN PHONE NUMBER [phone] [facility] Blood 03/23/2023 11:2 0 AM CDT 03/23/2023 5:32 PM CDT Margareth Herrera DO LAB GENETIC TESTING Fin al Result Performing Organization Address City/[facility]/ZIP Co de Phone Number [facility] [address] Department [place] [address] * Urine culture Urine, clean voided (03/23/2023 11:20 AM CDT) Report Final Report: Less than 100,000 colonies/mL (clinically insignificant growth based on current clinical standards) [facility] Comment:Testing performed by : [facility], [address] [place]., [address] Organism (CLINICALLY INSIGNIFICANT GROWTH [facility] Urine, clean voided 03/23/2023 11:20 AM CDT 03/23/2023 9:05 PM CDT Narrative [facility] - 03/25/2023 5:16 AM CDT Testing performed by [facility] Microbiology Laboratory ([phone]) Margareth Herrera DO LAB MICROBIOLOGY - GENE RAL ORDERABLES Final Result Performing Organization Address City/[facility]/ZIP Co de Phone Number [facility] [address] Department of [employer] [place], [place] [id number] * (ABNORMAL) Drugs of Abuse Screen, Urine without Confirmation (03/23/2023 11:20 AM CDT) [facility] Amphetamine, ur Not Detected CutOff 500ng/mL [facility] [...] 2018. Benzodiazepines, ur Not Detected CutOff 100ng/mL [facility] Comment: Interpretive Data - Benzodiazepines: ??Samples containing greater than 100 ng/mL nordiazepam or other cross-reacting compounds are reported as positive. ?? False positive and false negative results are possible. ?? Current Interpretive Data was last reviewed 2018. Cannabinoids, ur Detected(A) CutOff 50 ng/mL [facility] Comment: Interpretive Data - Cannabinoids: ??Samples containing greater than 50 ng/mL delta-9 THC -COOH or other cross-reacting compounds are reported as positive. ??False positive and false negative results are possible. ?? Current Interpretive Data was last reviewed 2018. Cocaine, ur Not Detected CutOff 150ng/mL [facility] Comment: Interpretive Data - Cocaine: ??Samples containing greater than 150 ng/mL benzoylecgonine or other cross-reacting compounds are reported as positive. False positive and false negative results are possible. Current Interpretive Data was last reviewed 2018. Fentanyl, Ur Not Detected Cutoff 1 ng/mL [facility] Comment: Interpretive Data - Fentanyls: ??Samples containing [...] DO LAB URINE ORDERABLES Fi nal Result [facility] [address] [place] [address] * HIV 1/2 Antibody plus p24 Antigen Blood (03/23/2023 11:20 AM CDT) Pathologist [facility] [place] HIV 1/2 ab + p24 ag Nonreactive Nonreactive [facility] Comment: Nonreactive for HIV-1 antigen and HIV-1/HIV-2 antibodies. No laboratory evidence of HIV infection. If acute HIV infection is suspected, consider testing for HIV-1 RNA. Blood 03/23/2023 11:2 0 AM CDT 03/23/2023 5:32 PM CDT Margareth Herrera DO LAB MICROBIOLOGY - GENE RAL ORDERABLES Final Result [facility] [address] Department [place] [address] * RPR Blood (03/23/2023 11:20 AM CDT) [facility] RPR Nonreactive Nonreactive [facility] Blood 03/23/2023 11:2 0 AM CDT 03/23/2023 5:32 PM CDT Margareth Herrera DO LAB MICROBIOLOGY - GENE RAL ORDERABLES Final Result Performing Organization Address City/[facility]/ZIP Co de Phone Number [facility] [phone] Department [place] [address] * (ABNORMAL) Varicella Zoster IgG antibody Blood (03/23/2023 11:20 AM CDT) Pathologist [facility] [place] VZV IgG Nonreacti ve(A) Reactive [facility] Comment: Non-reactive: No detectable antibody to Varicella-zoster virus.??Such individuals are presumed to be uninfected and to be susceptible to primary infection. Testing performed by: [facility], [address] [facility], [place]., [address] Blood 03/23/2023 11:2 0 AM CDT 03/24/2023 12:51 PM CDT us Margareth Herrera DO LAB MICROBIOLOGY - GENE RAL ORDERABLES Final Result [facility] [place] [address] * Type and screen (03/23/2023 [...] ORD ERABLES Final Result Performing Organization Address [facility] Co de Phone Number [facility] [address] [place] [address] * Rubella IgG antibody (03/23/2023 11:20 AM CDT) Pathologist [facility] [place] Rubella IgG Reactive [facility] Comment: Reactive: Results suggest response to immunization or prior exposure to the virus. Testing performed by: [facility], [address] [place]., [address] Blood 03/23/2023 11:2 0 AM CDT 03/24/2023 12:51 PM CDT Margareth Herrera DO LAB MICROBIOLOGY - GENE RAL ORDERABLES Final Result Performing Organization Address City/[facility]/ZIP Co de Phone Number [facility] [address] Department [place] [place] [address] * Hepatitis B Surface Antigen (03/23/2023 11:20 AM CDT) HepBsAg Nonreactive Nonreactive [facility] Blood 03/23/2023 11:2 0 AM CDT 03/23/2023 5:32 PM CDT Margareth Herrera DO LAB MICROBIOLOGY - GENE RAL ORDERABLES Final Result Performing Organization Address City/[facility]/ZIP Co de Phone Number [facility] [address] [facility] [place] [employer] [address] * Hepatitis C antibody (03/23/2023 11:20 AM CDT) Hep C Ab Nonreactive Nonreactive [facility] Comment: Interpretive Data Nonreactive: Antibodies to HCV [...] Edited Result - Final Performing Organization Address City/[facility] Co de Phone Number [facility] [place] [address] [address] [facility] [place] [address] * CBC with auto differential (03/23/2023 11:20 AM CDT) Pathologist [facility] [place] WBC 8.1 3.8 - 9.9 K/cumm [facility] Hgb 11.9 11.9 - 15.5 g/dL [facility] Hct 35.9 35.6 - 45.5 % [facility] Plt 273 150 - 400 K/cumm [facility] MPV 10.1 9.1 - 12.3 fL [facility] RBC 4.04 3.90 - 5.20 M/cumm [facility] MCV 88.9 81.3 - 96.4 fL [facility] MCH 29.5 27.1 - 33.3 pg [facility] MCHC 33.1 32.3 - 35.7 g/dL [facility] RDW CV 13.7 11.1 - 14.9 % [facility] RDW SD 45.0 35.7 - 48.1 fL [facility] NRBC abs 0.00 0.00 - 0.01 K/cumm [facility] Blood 03/23/2023 11:2 0 AM CDT 03/23/2023 5:32 PM CDT us Margareth Herrera DO LAB BLOOD ORDERABLES Fi nal Result [facility] [address] [facility] Department [place] [address] * Pap with reflex to High Risk HPV (03/23/2023 8:02 AM CDT) Thin prep (Pap test) 03/23/2023 8:02 AM CDT 03/23/2023 8:02 AM CDT Narrative PATHOLOGY CH - 03/28/2023 1:21 PM CDT [facility] Department of Pathology [id number] [place], [place] [id number] Final Report Note to Patients: This report [...] ??HANNAH PYLE Address: ??[address], ?? [place], [place] [address] Gender: ??F : ??1995 (Age: 27) Service: ?? Location: ?? Hospital #: ??[id number] Patient Type: ?? SPECIMEN Taken: ??03/23/2023 Received: ??03/23/2023 Accessioned:: ??03/24/2023 Reported: ??03/28/2023 Physician(s): Nessa Mcgee D.O. Diagnosis: SOURCE OF SPECIMEN ? Imaged Thinprep Pap Test w/ Reflex HPV - Roller Cytologic Material: STATEMENT OF ADEQUACY ?- Specimen satisfactory for interpretation; endocervical/transformation zone component absent or ?insufficient ? GENERAL CATEGORIZATION: ?- Negative for intraepithelial lesion or malignancy ? INTERPRETATION: ?- Numerous inflammatory cells present ? DISHA Faulkner(ASCP) Report Electronically Reviewed and Signed Out By ??DISHA Faulkner(ASCP) ??03/28/2023 13:21:27Specimen(s) Received: A: Imaged Thinprep Pap Test w/ Reflex HPV - Roller Cytologic Material Clinical History: Last Menstrual Period: [...] [facility] as part of an ongoing water quality analyst program and in compliance with [...] characteristics determined by the Surgical Pathology Department [facility]. ??It has not been cleared or approved by the U. S. Food and Drug Administration. Margareth Herrera DO LAB CYTOLOGY ORDERABLES Final Result Performing Organization Address City/State/[facility] Co de Phone Number PATHOLOGY [address] [place] [address] documented in this encounter Visit Diagnoses Diagnosis care, subsequent , second trimester 15 weeks gestation of Screen for sexually transmitted diseases Screening examination for venereal disease Screening for malignant neoplasm of cervix Screening for malignant neoplasm of the cervix documented in this encounter Care Teams In School Suspension Coordinator Relationship Specialty Start Date End Date No, Physician PCP - General 03/09/23 documented as of this encounter
== END 2024-10-13 00:35 | disposition home or self-care (01) ==
PROVIDERS: Emergency Provider Physician Assistant
DX: S61.213A Laceration without foreign body of left middle finger without damage to nail, initial encounter (principal); W26.0XXA Contact with knife, initial encounter; Z87.891 Personal history of nicotine dependence
CPT/HCPCS: 12001; 99283; J2003

== ENCOUNTER 2024-10-22 00:02 | Emergency (ER) | payer OTHER, SELFPAY ==
[2024-10-22 00:04] VITALS: BP 119/76; PULSE 75; RESP 18; TEMP 36.4; O2SAT 98
--- NOTE | 2024-10-22 02:41 | ED.GENADULT ---
HPI - General Adult General Chief complaint: Wound/Laceration Stated complaint: slicing a marcela, sliced her left thumb Time Seen by Provider: 10/22/24 02:32 History of Present Illness HPI narrative: Patient is a 29-year-old female who presents to the emergency department this evening after sustaining a laceration while slicing a marcela. Patient states that the knife accidentally slipped and sliced the tip of her right thumb. Patient does have a small laceration to the tip of her thumb not involving her nail bed. Laceration is round with 1/4 of the laceration flap still connected to patient's thumb. Patient states that 1 week ago she had a similar incident and lacerated the palmar aspect of the left middle finger over the PIP flexor and had 1 suture placed at this time. Patient is hoping that we can remove fast suture today as well. Bleeding is currently controlled. Patient states that her last tetanus was 3 years ago. Denies any additional symptoms or concerns at this time. Related Data Allergies Allergy/AdvReac Type Severity Reaction Status Date / Time No Known Allergies Allergy Verified 10/12/24 23:03 Review of Systems Review of Systems: All systems are reviewed and are negative unless stated otherwise in the HPI. [facility] Past Medical History Medical History delivery delivered Depression Colitis Surgical History Surgical History History of section Social History Social History Social History: Smokes rarely. Smoking status: Former smoker Tobacco type: e-cigarettes/vaping Second hand tobacco smoke exposure: No Alcohol intake: current Substance use: never Lack of Transportation: No Lack of Food: Never True Current Housing: I Have Housing Concerned About Future Housing: No Difficulty Paying Gas/Electric Bills: No Difficulty Paying for Meds: No Currently Unemployed: No Education: Grade School Difficulty w/ Childcare or Family Care: No Spiritual care concerns: No Exam Narrative: General: Alert, awake, afebrile, in no acute distress. HEENT: PERRL, no rhinorrhea, no post nasal drip, oropharynx clear. Neck: Trachea midline, no JVD, no lymphadenopathy. Cardiovascular: Regular rate and rhythm, no murmurs, rubs or gallops, no peripheral edema. Respiratory: Clear to auscultation bilaterally, no tachypnea, no wheezing, no rhonchi, no rubs, no respiratory distress. Abdomen: Soft, nontender, nondistended, no rebound, no guarding, no peritoneal signs. Musculoskeletal: No joint swelling or deformity, normal muscle tone. Skin: No rashes or petechia, no signs of infection, 1 cm round laceration to the tip of right thumb not involving nailbed, 1/4 of flap is connected to patient's thumb, no active bleeding. Psychiatric: Alert and oriented, normal behavior and judgment for situation. Neurological: Alert and oriented to person, place, and time. Follows all commands. No focal deficits, speech is clear and fluent. Course Vital Signs Vital signs: Vital Signs Temperature 97.6 F 10/22/24 00:04 Pulse Rate 75 10/22/24 00:04 Respiratory Rate 18 10/22/24 00:04 Blood Pressure 119/76 10/22/24 00:04 Pulse Oximetry 98 10/22/24 00:04 Oxygen Delivery Room Air 10/22/24 00:04 Temperature 97.6 F 10/22/24 00:04 Pulse Rate 75 10/22/24 00:04 Respiratory Rate 18 10/22/24 00:04 Blood Pressure 119/76 10/22/24 00:04 Pulse Oximetry 98 10/22/24 00:04 Oxygen Delivery Room Air 10/22/24 00:04 Procedures Laceration Laceration 1: Date: 10/22/24 Time: 02:43 Site: upper extremity Side (If applicable): right Size (cm): 1 Description: linear and irregular Local Anesthetic: other anesthetic (LET Gel) Pre-repair: wound explored and irrigated ====== Skin Level ====== Skin layer closed with: dermabond and steri strips ====== Subcutaneous Layer ====== ====== Muscle Layer ====== ====== Tendon Layer ====== Medical Decision Making MDM Narrative Medical decision making narrative: The patient was evaluated by myself in the emergency department. History is obtained from patient who is an independent historian and physical exam was performed. External medical records were reviewed at this time. Patient was administered Belmont 5-325 mg due to pain and LET gel was applied over the area at this time. Laceration was repaired using Dermabond and Steri-Strips as detailed under procedural note. Patient was informed that since only a small part of the laceration flap is connected to her thumb, this means that there is a chance that this part of the skin may not receive sufficient vascular flow and . Patient has 1 stitch that was in her left hand was removed at this time. Differential diagnosis considerations include laceration, abrasion, skin avulsion. Comorbidities impacting this visit include none. I have evaluated and discussed social determinants of health with the patient that could potentially impact subsequent diagnosis and treatment plans. On repeat assessment of the patient, reevaluation revealed that the patient is doing well and is in no acute distress. Patient symptoms have improved since she arrived to our emergency department. Repeat vital signs were all reviewed and noted to be stable. Differential diagnosis and treatment plan were discussed with the patient at bedside. Patient agrees with discussion and after shared medical decision making agrees with discharge. All questions were answered to the patient's satisfaction. Patient will follow up with her PCP in 3-5 days. Patient was provided with strict return precautions and instructed to return to the emergency department if any new or worsening symptoms develop. The patient was discharged in stable condition. Vital Signs Vital Signs: Vital Signs Temperature 97.6 F 10/22/24 00:04 Pulse Rate 75 10/22/24 00:04 Respiratory Rate 18 10/22/24 00:04 Blood Pressure 119/76 10/22/24 00:04 Pulse Oximetry 98 10/22/24 00:04 Oxygen Delivery Room Air 10/22/24 00:04 Temperature 97.6 F 10/22/24 00:04 Pulse Rate 75 10/22/24 00:04 Respiratory Rate 18 10/22/24 00:04 Blood Pressure 119/76 10/22/24 00:04 Pulse Oximetry 98 10/22/24 00:04 Oxygen Delivery Room Air 10/22/24 00:04 Discharge Plan Discharge Clinical Impression: Laceration, Visit for suture removal Patient Disposition: Home, Self-Care Condition: Improved Instructions: Antibiotic Form, Laceration (ED), Stitches Removal (ED) Additional Instructions: Please follow-up with your family doctor within the next 3-5 days. Return to the emergency department if any new or worsening symptoms develop. Patient Language: Estonian Prescriptions: No Action hydrocodone-acetaminophen 5-325 mg Tablet 1 tablet PO Q3H PRN (Reason: Moderate Pain (4-6)) Qty: 12 0RF ibuprofen 600 mg Tablet 600 mg PO Q6H PRN (Reason: Cramping) Qty: 20 0RF hydrocodone-acetaminophen 5-325 mg tablet 1 tablet PO Q6H PRN (Reason: pain) Qty: 20 0RF ibuprofen 600 mg tablet 600 mg PO TID Qty: 20 0RF acyclovir 800 mg tablet 800 mg PO BID Qty: 4 0RF hydrocortisone [Anusol-HC] 2.5 % cream with perineal applicator 1 applic RECTAL DAILY PRN (Reason: pain) Qty: 30 0RF amoxicillin 500 mg capsule 500 mg PO Q12H Qty: 20 0RF Follow-up/Referrals: Dannie Matute DO [Physician] - 3 Days PHYSICIAN,RECONCILEMENT CLERK [Primary Care Provider] - Time of Disposition: 02:43
[2024-10-22] MEDS: LIDOCAINE, EPINEPHRINE, TETRACAINE VISCOUS SOLN 3 ML TOPICAL (03:28)
[2024-10-22] MEDS: HYDROcodone/acetaminophen (*CRX) 5-325 MG TABLET 1 TAB PO (03:28)
--- OUTSIDE RECORDS SUMMARY | 2024-10-29 00:28 | XMS_ITS | Encounter Summary ---
Author Organization [facility] Address [facility] [facility] [place] [address] Care Team Providers Care Emergency Room Registered Nurse Name Role Phone Unavailable Primary Care Provider Unavailabl e Reason for Visit * Reason Onset Date Comments Scheduling 03/08/2021 Encounter Details Date Type Department Care Team (Late st Contact Info) Description 03/08/2021 Telephone [facility] MATERNAL/ EVALUATION UNIT [facility] [facility] [place] [address] Katerin Reed Scheduling Social History Tobacco Use [...]
--- OUTSIDE RECORDS SUMMARY | 2024-10-29 00:28 | XMS_ITS | Encounter Summary ---
Author Organization [facility] Address [facility] [facility] [place] [address] Care Team Providers Care Entry Level Sales Representative Name Role Phone Unavailable Primary Care Provider Unavailabl e Reason for Visit * Auth/Cert Specialty Diagnoses / Procedures Referred By Contac t Referred To Contact Referral ID Status Reason Start Date Expiration Date Visits Re quested Visits Authorized [id number] 1 1 Encounter Details Date Type Department Care Team (Latest Contact Info) Description 02/23/2021 4:20 PM CDT - 03/06/2021 1:00 PM CDT Hospital Encounter HC 6W MOTHER/BABY [address] [place] [address] Fabrice Solis MD [address] [place] [address] CURTAIN DRIER Discharge Disposition: Home or Self Care Social [...] from the original note were not included. director stage Discharge Summary 03/19/2021, 8:28 AM Date of [...] Information for the patient's : Shaquille Luis [[id number]] Date of 03/04/2021 Time of : 10:41 [...] Your discharge diagnosis is: (spontaneous vaginal delivery) [[id number]] No special diet needed Resume your normal [...] the counter Benadryl for relief of itching. [id number] medication Use an abdominal binder or belly band for comfort as needed, and use compression stockings (available at pharmacies or online at stores like [employer]) for leg swelling. Follow up with provider Order Specific Question Answer Comments Follow Up Instructions: in 2 weeks with high risk clinic at [address] [place] [address], in Maternal Medicine suite on . Telegraphic Typewriter Operator Chief will call with appointment Phil Umana MD 03/19/2021 8:28 AM Associated attestation - Elisa Krueger MD - 03/26/2021 6:47 PM CDT [facility] ST[facility]FF I have reviewed Oneida Luis [...] stay for more information. Please contact your medical stenographer for the followin. Any burning or itching [...] example: your cell phone and cell phone kiln charger. PLEASE REMEMBER: 1. Always place your infant [...] - High-risk clinic in 2 weeks - journeyman powerhouse operator to call with appt. * Sabrina Francisco [...] Krueger MD - 03/06/2021 1:44 PM CDT [facility] I have reviewed Oneida Luis [...] bonding occurs Outcome: Progressing * Thom Hali IngramTOSHIA-CLIENT REPORTING ASSOCIATE - 03/05/2021 10:32 AM CDT PRESIDENT AND CHIEF EXECUTIVE OFFICER OB Progress Note Subjective: Oneida Luis Is [...] Summary Patient Information Patient Name Oneida Luis ([id number]) Legal Sex Female OB History 5 Para [...] Blood Loss Admission (Current) from 02/23/2021 in [facility] 5 LDR Estimated Blood Loss 150 [...] 29.7 Comment: H 1.4 18 Matthew Luis [[id number]] Patient Information Patient Name Matthew Luis ([id number]) Legal Sex Male Anesthesia Method: Epidural, IV Narcotic Labor Events labor?: Yes steroids: Full Course GBS Status: negative Antibiotic: clindamycin, other Number of Antibiotic Doses: More than 5 Rupture Date: 03/04/21 Time: 2227 Rupture type: Artificial, Premature, Bulging, Ruptured, Patient Denies Leaking Fluid color: Clear, [place] Fluid odor: Normal Odor Induction: Oxytocin, AROM [...] the patient's : Luis, Baby Boy Oneida [[id number]] Date of 03/04/2021 Time of : 10:41 [...] ACOSTA Initial count verified by: Mahogany ARMSTRONGRN [place] [employer] Lap Pads Sponges Initial counts 0 15 6 0 Added to counts 0 0 0 0 Final counts 0 15 6 0 Final count personnel: DR. LOJA Final count verified by: Mahogany YOST RN Vaginal packing left in?: Neg Accurate final count?: Yes Delivery ([place]) Delivery Date: 03/04/21 Delivery Time: 10:41 PM [...] 34wks. Co-morbidities: - , pelvis proven to 6gl01mn, GBS neg, 02/24 2092g/44% - PPROM @ [...] deceleration x 1 > 2 hours ago Naturita: q2 min Cervical Exam Dilation (cm): 3.5 [...] decelerations with return to baseline and reacticity Naturita: palpating every 4-5min Unable to fully assess [...] 145 baseline, moderate variability, reactive, no decelerations Naturita: minimal ctx Cervical exam Dilation (cm): 1.5 [...] 145 bpm, moderate variability, reactive, no decelerations Naturita: uterine irritability Cervical Exam Dilation (cm): 1.5 [...] MD 03/04/2021 9:11 AM * Hali Tomas APRN-CLIENT REPORTING ASSOCIATE - 03/04/2021 8:22 AM CDT PRESIDENT AND CHIEF EXECUTIVE OFFICER MFM Antepartum Progress Note Date: 03/04/2021 Hospital [...] 1631 174 lb 1.6 oz (79 kg) [facility] Labs Component Name 02/26/21 1514 [...] Tomas APRN-CNP - 03/03/2021 8:08 AM CDT PRESIDENT AND CHIEF EXECUTIVE OFFICER MFM Antepartum Progress Note Date: 03/03/2021 Hospital [...] Krueger MD - 03/02/2021 3:01 PM CDT [facility] I have reviewed Oneida Luis [...] 10.8* HCT 34.9* 31.6* 33.5* PLTCOUNT 271 043 160 I have the following additions/revision to the [...] once the baby is born. 1:05 PM break out worker, Denise Rodriguez, met with pt in her room. Discussed items still needed in the home. Pt stated that she is still in need of some items including additional baby clothes and a Pack N Play for the baby to sleep. SW discussed role as mandated web editor if cord tissue drug screen results are positive for any illegal or controlled substances; pt verbalized understanding. Discussed ptno longer scheduled for CS, but will be induced on . Discussed PPD and provided PPD information. SW provided W&I Resource Guide. Psychosocial assessment completed. [employer] CASE MANAGEMENT PSYCHOSOCIAL ASSESSMENT Reason for Referral: Pt would like help preparing for baby at home Patient diagnosis and relevant medical history: DX: The encounter diagnosis was Premature rupture of membranes, unspecified duration to onset of labor, unspecified gestational age. Father of baby: Shaquille Luis, . Very supportive and involved. Language Barriers: N/A Cultural Barriers: N/A Ethnicity: White/ Lang: AMHARIC Patient's Address: [address] [place] [address] Pt's phone number: [phone] (home) Family Support (name and phone) Extended Emergency Contact Information Primary Emergency Contact: Shaquille Luis Address: [address] [place] [address] Mobile Relation: Spouse Secondary Emergency Contact: JANES SHANNON Mobile Relation: Mother Revenue Integrity Analyst needed? No Alternative Weaving Instructor Family Strengths: Pt stated that her family [...] (Temporary Assistance to Needy Families)- No Food [place]- Yes WIC- Yes SSI- No Insurance: Payor/Plan Subscriber Name Rel Member # Group # MEDICAID AETNA BETTER* ONEIDA LUIS Self [id number] [address] [address] Community Resources Utilized: None identified Designated Supervisor Production: [facility] Referrals: Nurses for Newborns- [place] Resident Child protection referral- DFS/DCFS-Name of worker: Phone number: Other- Does the family have the following basic discharge needs? 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 If she is in need of assistance her mother and father provide childcare assistance. Transportation: Pt has her own vehicle. Family planning: The pt and her CURTAIN DRIER have discussed family planning. Recommended discharge plan for infant: Infant to return home with mother. MAXWELL Armstrong [phone] PRN Manager Home Healthcare * Buffy Colldao MD - 03/01/2021 12:51 PM CDT R1 [...] baseline 145, moderate variability, reactive, no decelerations Naturita: irritable, no contractions BSUS: VTX A/p 1. [...] OK to insert midline * Hali Tomas, GENERAL MEDICAL PRACTITIONER-CLIENT REPORTING ASSOCIATE - 03/01/2021 8:25 AM CDT .PRESIDENT AND CHIEF EXECUTIVE OFFICER MFM Antepartum Progress Note Date: 03/01/2021 Hospital [...] bilaterally Labs: No new labs to review NST/Naturita: See separate procedure note MEDICATIONS FOR CURRENT [...] of Service: 02/28/21 MD Fabrice Mckenna MD [facility] * Tami Cano RN - 02/28/2021 1:45 AM CDT Shift summary: ([id number]) VSS, afebrile, abdomen nontender. pt denies pain, [...] AST, TBIL, TPROT, EGFR in the last 84165 hours. NST/Naturita: See separate procedure note MEDICATIONS FOR CURRENT [...] 3:35 PM CDT Social Work Progress Note break out worker, Denise Rodriguez, attempted to meet with pt in her room. Pt was sleeping. SW will followup with pt next week. SW will follow up regarding items pt is still needing in the home at that time. Pt is scheduled for a CS 03/04/21. MAXWELL Armstrong [phone] PRN Manager Home Healthcare * Hali Tomas APRN-STEPHIE - 02/26/2021 8:32 AM CDT PRESIDENT AND CHIEF EXECUTIVE OFFICER MFM Antepartum Progress Note Date: 02/26/2021 Hospital [...] AST, TBIL, TPROT, EGFR in the last 06028 hours. NST/Naturita: See separate procedure note MEDICATIONS FOR CURRENT [...] of Service: 02/25/21 MD Fabrice Mckenna MD [facility] * Delmy Ribeiro MD - 02/25/2021 5:30 AM CDT PGY2 [employer] Progress Note In to see patient for [...] SVE: /-3. A little thinner than I time checker her last night. At this time there is not much to offer patient in terms of medications. S/p LR and Tylenol w/o relief. Magnesium not indicated. BPs have bee 90/50s therefore Procardia not able to be used. Continue to monitor closely. Delmy Ribeiro MD 02/25/2021 5:30 AM * Delmy Ribeiro MD - 02/25/2021 2:49 AM CDT PGY2 [employer] Progress Note In to see patient for [...] MD - 02/24/2021 10:10 PM CDT PGY2 [employer] Progress Note In to see patient for [...] AST, TBIL, TPROT, EGFR in the last 01259 hours. NST/Naturita: See separate procedure note MEDICATIONS FOR CURRENT [...] of Service: 02/24/21 MD Fabrice Mckenna MD [facility] * Carline Joy RN - 02/23/2021 [...] MD - 02/23/2021 8:07 PM CDT PGY2 [employer] Progress Note In to see patient for [...] AM CDT Non-Stress Test (NST) Oneida Luis [id number] 03/03/2021 Gestational age: 33w6d Indications: pprom Interpretation: [...] AM CDT Non-Stress Test (NST) Oneida Luis [id number] 03/03/2021 Gestational age: 33w6d Indications: pprom Interpretation: [...] PM CDT Non-Stress Test (NST) Oneida Luis [id number] 03/03/2021 Gestational age: 33w6d Indications: pprom Interpretation: [...] AM CDT Non-Stress Test (NST) Oneida Luis [id number] 03/02/2021 Gestational age: 33w5d Indications: pprom Interpretation: [...] AM CDT Non-Stress Test (NST) Oneida Luis [id number] 03/02/2021 Gestational age: 33w5d Indications: pprom Interpretation: [...] 135 bpm, moderate variability, reactive, no decelerations Naturita: irritable, no contractions A/P: well-being reassuring, continue testing as ordered or as otherwise indicated Buffy Collado MD 03/02/2021 10:24 AM Associated attestation - Elisa Krueger MD - 03/02/2021 12:24 PM CDT I have reviewed the tracing and concur with the resident's description and interpretation. The FHT is reactive using 15x15 bpm criteria. No FHR decelerations lasting >30 seconds were detected. Elisa Krueger MD [facility] STAFF * Buffy Collado MD [...] 130 bpm, moderate variability, reactive, no decelerations Naturita: irritable, no contractions A/P: well-being reassuring, continue testing as ordered or as otherwise indicated Buffy Collado MD 03/02/2021 7:45 AM Associated attestation - Elisa Krueger MD - 03/02/2021 12:24 PM CDT I have reviewed the tracing and concur with the resident's description and interpretation. The FHT is reactive using 15x15 bpm criteria. No FHR decelerations lasting >30 seconds were detected. Elisa Krueger MD [facility] STAFF * Buffy Collado MD [...] 135 bpm, moderate variability, reactive, no decelerations Naturita: irritable, no contractions A/P: well-being reassuring, continue testing as ordered or as otherwise indicated Buffy Collado MD 03/02/2021 7:45 AM Associated attestation - Elisa Krueger MD - 03/02/2021 12:23 PM CDT I have reviewed the tracing and concur with the resident's description and interpretation. The FHT is reactive using 15x15 bpm criteria. No FHR decelerations lasting >30 seconds were detected. Elisa Krueger MD [facility] STAFF * Laila Dexter RN [...] PM CDT Non-Stress Test (NST) Oneida Luis [id number] 03/01/2021 Gestational age: 33w4d Indications: pprom Interpretation: [...] AM CDT Non-Stress Test (NST) Oneida Luis [id number] 02/28/2021 Gestational age: 33w3d Indications: pprom Interpretation: [...] AM CDT Non-Stress Test (NST) Oneida Luis [id number] 02/28/2021 Gestational age: 33w3d Indications: pprom Interpretation: [...] AM CDT Non-Stress Test (NST) Oneida Luis [id number] 02/28/2021 Gestational age: 33w3d Indications: pprom Interpretation: [...] OTHER INFORMATION Tami Cano RN Non-Stress Test [facility] Patient Name: Oneida Luis LMP: Patient's last menstrual period was 06/15/2020. Indications: PPROM NST date: 02/27/2021 NST duration: >20 mins Interpretation: Baseline: 135 beats/minute moderate variability Reactive Contractions: Uterine irritability Decelerations: none Impression and Plan: FWB reassuring, continue monitoring as scheduled. Luisana Ye MD 02/28/2021 8:52 AM Associated attestation - Fabrice Solis MD - 02/28/2021 9:28 AM CDT U [employer] Attending: I have reviewed the images and [...] Interventions: None Mahsa Sawant RN Non-Stress Test [facility] Patient Name: Oneida Luis LMP: Patient's last menstrual period was 06/15/2020. Indications: PPROM NST date: 02/27/2021 NST duration: >20 mins Interpretation: Baseline: 150 beats/minute moderate variability Reactive Contractions: none Decelerations: none Impression and Plan: FWB reassuring, continue monitoring as scheduled. Luisana Ye MD 02/28/2021 8:52 AM Associated attestation - Fabrice Solis MD - 02/28/2021 9:28 AM CDT [facility] [employer] Attending: I have reviewed the images and [...] Interventions: None Mahsa Sawant RN Non-Stress Test [facility] Patient Name: Oneida Luis LMP: Patient's last menstrual period was 06/15/2020. Indications: PPROM NST date: 02/27/2021 NST duration: >20 mins Interpretation: Baseline: 145 beats/minute moderate variability Reactive Contractions: none Decelerations: one shallow variable Impression and Plan: FWB reassuring, continue monitoring as scheduled. Luisana Ye MD 02/28/2021 8:51 AM Associated attestation - Fabrice Solis MD - 02/28/2021 9:29 AM CDT [facility] [employer] Attending: I have reviewed the images and [...] OTHER INFORMATION Brittnee Esparza RN Non-Stress Test [facility] Patient Name: Oneida Luis LMP: Patient's last menstrual period was 06/15/2020. Indications: PPROM NST date: 02/26/21 - 02/27/2021 NST duration: >20 mins Interpretation: Baseline: 135 beats/minute moderate variability Reactive Naturita: with uterine irritability Decelerations: none Impression and Plan: FWB reassuring, continue monitoring as scheduled. Luisana Ye MD 02/27/2021 8:20 AM Associated attestation - Fabrice Solis MD - 02/27/2021 9:12 AM CDT U [employer] Attending: I have reviewed the images and agree with the interpretation for the attached procedure. Fabrice Solis MD * Luisana Ye MD - 02/26/2021 6:58 PM CDT Name: Oneida Luis Date of : 1995 Today's Date: 02/26/2021 [id number] 33w1d NST RESULTS (REA) OBJECTIVE FINDINGS Temp: 98.1 ??F (36.7 ??C), Pulse: 77, Resp: 16, BP: 98/58 NST Indication(s): Premature rupture of membranes Uterine Irritability: Yes Contractions: Irregular Frequency: x2 Duration (sec) Range: 50 Perceived Intensity: Mild OBJECTIVE FINDINGS Movement: Present Monitoring Mode: External Baseline: 145 BPM Variability: Moderate Decelerations: None Accelerations: Yes OTHER INFORMATION Kari Hawley RN Non-Stress Test [facility] Patient Name: Oneida Luis LMP: Patient's last menstrual period was 06/15/2020. Indications: PPROM NST date: 02/26/21 NST duration: >20 mins Interpretation: Baseline: 145 beats/minute moderate variability Reactive Decelerations: None Naturita: with uterine irritability Impression and Plan: FWB reassuring, continue monitoring as scheduled. Luisana Ye MD 02/27/2021 8:20 AM Associated attestation - Fabrice Solis MD - 02/28/2021 10:13 AM CDT U [employer] Attending: I have reviewed the images and agree with the interpretation for the attached procedure. Fabrice Solis MD * Kari Hawley RN - 02/26/2021 12:36 PM CDT Name: Oneida Luis Date of : 1995 Today's Date: 02/26/2021 [id number] 33w1d NST RESULTS (REA) OBJECTIVE FINDINGS Temp: [...] PM CDT Non-Stress Test (NST) Oneida Luis [id number] 02/26/2021 Gestational age: 33w1d Indications: pprom Interpretation: [...] AM CDT Non-Stress Test (NST) Oneida Luis [id number] 02/25/2021 Gestational age: 33w0d Indications: pprom Interpretation: [...] AM CDT Non-Stress Test (NST) Oneida Luis [id number] 02/25/2021 Gestational age: 33w0d Indications: pprom Interpretation: Baseline: 130 beats/minute reactive Variability: moderate Contractions: none Decelerations: none Recommendation: Follow up as clinically indicated. AMAURY Patterson * Phil Umana MD - 02/25/2021 6:57 AM CDT Non-Stress Test [facility] Patient Name: Oneida Luis LMP: Patient's last menstrual period was 06/15/2020. Indications: PPROM NST date: 02/24-06/2021 NST duration: >20 mins ([id number]) Interpretation: Baseline: 120 beats/minute mod variability Reactive Contractions: irregular Decelerations: none Impression and Plan: FWB reassuring, continue monitoring as scheduled. Phil Umana MD 02/25/2021 6:57 AM Associated attestation - Fabrice Solis MD - 02/25/2021 9:46 AM CDT U [employer] Attending: I have reviewed the images and agree with the interpretation for the attached procedure. Fabrice Solis MD * Phil Umana MD - 02/24/2021 7:59 AM CDT Non-Stress Test [facility] Patient Name: Oneida Luis LMP: Patient's last menstrual period was 06/15/2020. Indications: PPROM NST date: 5106-8914 NST duration: >20 mins Interpretation: Baseline: 120 beats/minute mod variability Reactive Contractions: irregular Decelerations: one late appearing deceleration at 0550 Impression and Plan: FWB reassuring, continue monitoring as scheduled. Phil Umana MD 02/24/2021 7:59 AM Associated attestation - Fabrice Solis MD - 02/24/2021 10:26 AM CDT U [employer] Attending: I have reviewed the images and agree with the interpretation for the attached procedure. Fabrice Solis MD documented in this encounter Consult Notes * Denise Rodriguez MSW - 03/05/2021 10:17 AM CDTAssociated Order(s): IP CONSULT TO BINDER SELECTOR SOCIAL SERVICE CONSULT - BRIEF Reason for Referral: Discharge planning for OB concerns CONSULT COMMENT: +UDS MJ Assessment/Interventions/Plan: break out workerDenise, received consult. SW received consult and [...] please provide. Pt is an [place] resident. [place] does not accept referrals for +MJ screens alone. Infant to discharge home with mother when medically stable for discharge. SW to follow for infant cord tissue results. MAXWELL Armstrong [phone] PRN Manager Home Healthcare * Gemma Law RN - 03/01/2021 10:02 [...] can dwell up to 30 days per appliance service supervisor's recommendation. Change dressing prn or at least weekly. * Denise Rodriguez MSW - 02/25/2021 4:01 PM CDTAssociated Order(s): IP CONSULT TO BINDER SELECTOR SOCIAL SERVICE CONSULT - BRIEF Reason for Referral: Pt would like help preparing for baby at home Assessment/Interventions/Plan: break out workerDenise, received consult and will follow up [...] be in her hospital room. MAXWELL Armstrong [phone] PRN Manager Home Healthcare * Sabrina Hernandez MD - 02/23/2021 9:26 [...] 32w6d prematurity with mother at bedside including: PLANT ATTENDANT OR ASSISTANT OPERATOR/development - Discussed effects on feeding ability, poor [...] prolonged NICU stay, feeding support, transfer to [facility], morbidity and mortality. Patient expresses [...] collect/label syringes. Ordered a breast pump from [employer] per [facility] Insurance- Medicaid. Mom states she tried [...] - 15.6 gm/dL 03/05/2021 8:29 AM CDT [facility] Hematocrit 34.4(L) 35.9 - 45.5 % 03/05/2021 8:29 AM CDT [facility] Blood BLOOD SPECIMEN / Unknown Lab Venipuncture / Unknown 03/05/2021 7:14 AM CDT 03/05/2021 8:22 AM CDT Fabrice Solis MD LAB - HEMATOLOGY ORD ERABLES [facility] [address] [place] [address] * PATHOLOGY TISSUE EXAM (STL) (03/04/2021 11:16 PM CDT) Case Report Surgical Pathology Report ? Case: [id number] ? Authorizing Provider: ??Chelsie Astorga MD ?Collected: ? 03/04/2021 11:16 PM ? Ordering Location: ? [facility] 5 LDR ? Received: ?03/05/2021 08:34 AM ? Pathologist: ? Carline Sorto MD ? Specimen: ?Placenta 3rd Trimester ? 03/08/2021 11:28 AM [facility] Final Diagnosis Placenta, vaginal delivery - Small, hypermature placenta (weight <10th percentile for gestational age) - membranes with no histopathologic abnormality - Three-vessel umbilical cord with no histopathologic abnormality 03/08/2021 11:28 AM [facility] Clinical History The patient is a 25-year-old woman at 34 weeks, 0 days gestation, with premature rupture of membranes 02/13. Procedure/findings: vaginal delivery, baby to NICU. 03/08/2021 11:28 AM [facility] Gross Description The requisition and [...] red-morales, spongy cut surfaces with no lesions. Razor Sharpener sections submitted as follows: A1-umbilical cord and membrane roll, A2-placental disc central, A3-placental disc peripheral. LJ 03/08/2021 11:28 AM [facility] Microscopic Description Microscopic examination substantiates the above diagnosis. 03/08/2021 11:28 AM [facility] Disclaimer All histochemical and/or immunohistochemical results are interpreted with controls that demonstrate appropriate staining reactions before reporting results. Note on use of immunocytochemistry reagents: This test was developed and its performance characteristic determined by [facility], Department of Laboratory Medicine. It has not [...] interpreted with caution. 03/08/2021 11:28 AM CDT [facility] Embedded Images 03/08/2021 11:28 AM CDT [facility] Pathology/Cytolo gy ENTIRE PLACENTA / Unknown Collection / Unknown 03/04/2021 11:16 PM CDT 03/05/2021 8:34 AM CDT Chelsie Astorga MD LAB - PATHOLOGY /CYTOLOGY ORDERABLES [facility] [address] [place] [address] * (ABNORMAL) BLOOD GASES CORD ARTERIAL (03/04/2021 10:52 PM CDT) pH Cord Arterial 7.30 7.20 - 7.34 pH 03/04/2021 11:04 PM CDT [facility] pCO2 Cord Arterial 62(H) 45 - 55 mm hg 03/04/2021 11:04 PM CDT [facility] Comment:H pO2 Cord Arterial 16 12 - 25 mm hg 03/04/2021 11:04 PM CDT [facility] HCO3 Cord Arterial 29.7(H) 22.0 - 24.0 mmol/L 03/04/2021 11:04 PM CDT [facility] Comment:H BE Cord Arterial 1.4 mmol/L 03/04/2021 11:04 PM CDT [facility] O2 Saturation Cord Arterial 18 % 03/04/2021 11:04 PM CDT [facility] Geronimo's Test N/A 03/04/2021 11:04 PM CDT [facility] Sample Site Other 03/04/2021 11:04 PM CDT [facility] Sample Type Cord blood Arterial 03/04/2021 11:04 PM CDT [facility] THERAPY Submarine Operator ID [id number] 03/04/2021 11:04 PM CDT [facility] Blood, arterial CORD BLOOD SPECIMEN / Unknown 03/04/2021 10:52 PM CDT 03/04/2021 10:52 PM CDT Chelsie Astorga MD LAB - BLOOD GAS ES ORDERABLES Performing Organization Address City/[facility]/ZIP Co de Phone Number [facility] [address] [phone] * (ABNORMAL) BLOOD GASES CORD NANCY (03/04/2021 [...] 03/04/2021 11:05 PM CDT [facility] RESP THERAPY Submarine Operator ID [id number] 03/04/2021 11:05 PM CDT [facility] Blood CORD BLOOD SPECIMEN / Unknown 03/04/2021 10:52 PM CDT 03/04/2021 10:52 PM CDT Chelsie Astorga MD LAB - BLOOD GAS ES ORDERABLES Performing Organization Address City/[facility] Co de Phone Number [facility] [address] [place] [address] * (ABNORMAL) CBC W AUTO DIFFERENTIAL (03/04/2021 7:33 AM CDT) WBC 11.6(H) 4.4 - 10.7 x10E9/L 03/04/2021 7:45 AM CDT [facility] WBC Corrected 03/04/2021 7:45 AM CDT [facility] RBC 3.75(L) 3.80 - 5.20 x10E12/L 03/04/2021 7:45 AM CDT [facility] Hemoglobin 10.7(L) 12.0 - 15.6 gm/dL 03/04/2021 7:45 AM CDT [facility] Hematocrit 32.4(L) 35.9 - 45.5 % 03/04/2021 7:45 AM CDT [facility] MCV 86.4 80.7 - 98.3 fl 03/04/2021 7:45 AM CDT [facility] MCH 28.5 26.7 - 34.0 pg 03/04/2021 7:45 AM CDT [facility] MCHC 33.0 30.8 - 35.9 gm/dL 03/04/2021 7:45 AM CDT [facility] Platelet Count 251 153 - 416 x10E9/L 03/04/2021 7:45 AM CDT [facility] RDW-CV 15.8(H) 12.1 - 14.9 % 03/04/2021 7:45 AM CDT [facility] MPV 9.6 9.4 - 12.9 fl 03/04/2021 7:45 AM CDT [facility] Neutrophils % 64.1 44.0 - 73.0 % 03/04/2021 7:45 AM CDT [facility] Lymphocytes % 22.9 20.0 - 43.0 % 03/04/2021 7:45 AM CDT [facility] Monocytes % 9.7 5.0 - 13.0 % 03/04/2021 7:45 AM CDT [facility] Eosinophils % 2.1 0.0 - 6.0 % 03/04/2021 7:45 AM CDT [facility] Basophils % 0.3 0.0 - 2.0 % 03/04/2021 7:45 AM CDT [facility] Immature Granulocytes 0.9 0 - 1 % 03/04/2021 7:45 AM CDT [facility] Neutrophil Absolute 7.45(H) 2.01 - 7.14 x10E9/L 03/04/2021 7:45 AM CDT [facility] Lymphocytes Absolute 2.67 1.07 - 3.94 x10E9/L 03/04/2021 7:45 AM CDT [facility] Monocytes Absolute 1.13(H) 0.26 - 1.07 x10E9/L 03/04/2021 7:45 AM CDT [facility] Eosinophils Absolute 0.24 0 - 0.47 x10E9/L 03/04/2021 7:45 AM CDT [facility] Basophils Absolute 0.04 0 - 0.08 x10E9/L 03/04/2021 7:45 AM CDT [facility] Immature Granulocytes Absolute 0.11(H) 0.00 - 0.06 x10E9/L 03/04/2021 7:45 AM CDT [facility] nRBC Auto 0 /100 WBC 03/04/2021 7:45 AM CDT [facility] Blood BLOOD SPECIMEN / Unknown Venipuncture / Unknown 03/04/2021 7:33 AM CDT 03/04/2021 7:38 AM CDT Fabrice Solis MD LAB - HEMATOLOGY ORD ERABLES Performing Organization Address City/[facility]/ZIP Co de Phone Number [facility] [address] [place] [address] * TYPE + SCREEN PANEL (03/04/2021 7:33 AM CDT) ABO Rh B POS 03/04/2021 8:20 AM CDT [facility] Comment:History checked. Antibody Screen NEG 8:20 AM CDT [facility] Blood Bank BLOOD SPECIMEN / Unknown Venipuncture / Unknown 03/04/2021 7:33 AM CDT 03/04/2021 7:38 AM CDT Fabrice Solis MD LAB - BLOOD BANK ORD ERABLES [facility] [address] [place] [address] * NON-STRESS TEST (03/03/2021 11:32 PM CDT) [...] INFORMATION Marion Blue RN Fabrice Solis MD [facility] ORDERABLES * NON-STRESS TEST (03/03/2021 6:15 [...] INFORMATION Grisel Pereira RN Fabrice Solis MD [facility] ORDERABLES * NON-STRESS TEST (03/03/2021 11:51 [...] INFORMATION Grisel Pereira RN Fabrice Solis MD [facility] ORDERABLES * NON-STRESS TEST (03/03/2021 12:42 [...] INFORMATION Marion Blue RN Fabrice Solis MD [facility] ORDERABLES * NON-STRESS TEST (03/01/2021 11:52 [...] 130 bpm, moderate variability, reactive, no decelerations Naturita: irritable, no contractions A/P: well-being reassuring, continue testing as ordered or as otherwise indicated Buffy Collado MD 03/02/2021 7:45 AM Fabrice Solis MD [facility] ORDERABLES * NON-STRESS TEST (02/28/2021 6:00 [...] None Mahsa Sawant RN Fabrice Solis MD [facility] ORDERABLES * NON-STRESS TEST (02/27/2021 11:26 [...] OTHER INFORMATION Tami Cano RN Non-Stress Test [facility] Patient Name: Oneida Luis LMP: Patient's [...] Interventions: None Mahsa Sawant RN Non-Stress Test [facility] Patient Name: Oneida Luis LMP: Patient's last menstrual period was 06/15/2020. Indications: PPROM NST date: 02/27/2021 NST duration: >20 mins Interpretation: Baseline: ??150 beats/minute moderate variability Reactive Contractions: ??none Decelerations: ??none Impression and Plan: FWB reassuring, continue monitoring as scheduled. Luisana Ye MD 02/28/2021 8:52 AM Fabrice Solis MD [facility] ORDERABLES * NON-STRESS TEST (02/27/2021 6:42 [...] Interventions: None Mahsa Sawant RN Non-Stress Test [facility] Patient Name: Oneida Luis LMP: Patient's last menstrual period was 06/15/2020. Indications: PPROM NST date: 02/27/2021 NST duration: >20 mins Interpretation: Baseline: ??145 beats/minute moderate variability Reactive Contractions: ??none Decelerations: one shallow variable Impression and Plan: FWB reassuring, continue monitoring as scheduled. Luisana Ye MD 02/28/2021 8:51 AM Fabrice Solis MD [facility] ORDERABLES * (ABNORMAL) IRON + TRANSFERRIN PANEL (02/26/2021 3:14 PM CDT) Pathologist [facility] Iron 43(L) 50 - 170 ug/dL 02/26/2021 3:44 PM CDT [facility] Comment:Attention clinician: Reference Range change. Transferrin 399(H) 180 - 382 mg/dL 02/26/2021 3:44 PM CDT [facility] Comment:Attention clinician: Reference Range change. TIBC Calculated 499(H) 240 - 450 ug/dL 02/26/2021 3:44 PM CDT [facility] Iron Saturation % 9(L) 20 - 50 % 02/26/2021 3:44 PM CDT [facility] Blood BLOOD SPECIMEN / Unknown Venipuncture / Unknown 02/26/2021 3:14 PM CDT 02/26/2021 3:25 PM CDT Hali Tomas APRN-CLIENT REPORTING ASSOCIATE LAB - CROP RESEARCH SCIENTIST RY ORDERABLES [facility] [address] [place] [address] * FERRITIN (02/26/2021 3:14 PM CDT) [facility] Ferritin 7 5 - 204 ng/mL 02/26/2021 4:12 PM CDT [facility] Blood BLOOD SPECIMEN / Unknown Venipuncture / Unknown 02/26/2021 3:14 PM CDT 02/26/2021 3:25 PM CDT Hali Tomas TOSHIA-CLIENT REPORTING ASSOCIATE LAB - CROP RESEARCH SCIENTIST RY ORDERABLES Performing Organization Address [facility] Co de Phone Number [facility] [address] [place] [address] * TYPE + SCREEN PANEL (02/26/2021 3:14 PM CDT) Pathologist [facility] ABO Rh B POS 02/26/2021 4:55 PM CDT [facility] Comment:History checked. Antibody Screen NEG 4:55 PM CDT [facility] Blood Bank BLOOD SPECIMEN / Unknown Venipuncture / Unknown 02/26/2021 3:14 PM CDT 02/26/2021 3:25 PM CDT Hali Tomas TOSHIA-CLIENT REPORTING ASSOCIATE LAB - BLOOD B ANK ORDERABLES Performing Organization Address [facility] de Phone Number [facility] [address] [place] [address] * (ABNORMAL) CBC W AUTO DIFFERENTIAL (02/26/2021 3:14 PM CDT) Pathologist [facility] WBC 10.1 4.4 - 10.7 x10E9/L 02/26/2021 3:32 PM CDT [facility] WBC Corrected 02/26/2021 3:32 PM CDT [facility] RBC 3.96 3.80 - 5.20 x10E12/L 02/26/2021 3:32 PM CDT [facility] Hemoglobin 11.3(L) 12.0 - 15.6 gm/dL 02/26/2021 3:32 PM CDT [facility] Hematocrit 34.9(L) 35.9 - 45.5 % 02/26/2021 3:32 PM CDT [facility] MCV 88.1 80.7 - 98.3 fl 02/26/2021 3:32 PM CDT [facility] MCH 28.5 26.7 - 34.0 pg 02/26/2021 3:32 PM CDT [facility] MCHC 32.4 30.8 - 35.9 gm/dL 02/26/2021 3:32 PM CDT [facility] Platelet Count 271 153 - 416 x10E9/L 02/26/2021 3:32 PM CDT [facility] RDW-CV 15.7(H) 12.1 - 14.9 % 02/26/2021 3:32 PM CDT [facility] MPV 9.7 9.4 - 12.9 fl 02/26/2021 3:32 PM CDT [facility] Neutrophils % 64.7 44.0 - 73.0 % 02/26/2021 3:32 PM CDT [facility] Lymphocytes % 23.4 20.0 - 43.0 % 02/26/2021 3:32 PM CDT [facility] Monocytes % 10.0 5.0 - 13.0 % 02/26/2021 3:32 PM CDT [facility] Eosinophils % 0.9 0.0 - 6.0 % 02/26/2021 3:32 PM CDT [facility] Basophils % 0.1 0.0 - 2.0 % 02/26/2021 3:32 PM CDT [facility] Immature Granulocytes 0.9 0 - 1 % 02/26/2021 3:32 PM CDT [facility] Neutrophil Absolute 6.57 2.01 - 7.14 x10E9/L 02/26/2021 3:32 PM CDT [facility] Lymphocytes Absolute 2.37 1.07 - 3.94 x10E9/L 02/26/2021 3:32 PM CDT [facility] Monocytes Absolute 1.01 0.26 - 1.07 x10E9/L 02/26/2021 3:32 PM CDT [facility] Eosinophils Absolute 0.09 0 - 0.47 x10E9/L 02/26/2021 3:32 PM CDT [facility] Basophils Absolute 0.01 0 - 0.08 x10E9/L 02/26/2021 3:32 PM CDT [facility] Immature Granulocytes Absolute 0.09(H) 0.00 - 0.06 x10E9/L 02/26/2021 3:32 PM CDT [facility] nRBC Auto 0 /100 WBC 02/26/2021 3:32 PM CDT [facility] Blood BLOOD SPECIMEN / Unknown Venipuncture / Unknown 02/26/2021 3:14 PM CDT 02/26/2021 3:25 PM CDT Hali Tomas GENERAL MEDICAL PRACTITIONER-CLIENT REPORTING ASSOCIATE LAB - HEMATOL OGY ORDERABLES Performing Organization Address [facility]/State/[facility] Co de Phone Number [facility] [address] [place] [address] * SONOGRAM - COMPLETE (02/24/2021 9:45 AM CDT) Anatomical Region Laterality Modality Other 02/24/2021 9:45 AM CDT Narrative 02/24/2021 11:55 AM CDT ?[facility] [place] [facility] ?PHONE: ??FAX: Pat. Name: ?ONEIDA LUIS. No: ?[id number] Study Date: ?? 02/24/2021 ??9:45am , Age: ? 1995, 25 Pregnancies: ?? 5, Para 3, Ab 1 Height: ? 65 in Weight: ? 166 lb LMP: ?Unknown GA by Base: ?? 32w6d ?? SRINIVASA: 04/15/2021 GA by US: ? 33w1d ?? SRINIAVSA: 04/13/2021 GA Selected: ??32w6d (From [facility]) SRINIVASA: ?04/15/2021 Referring MD: Junie Brizuela MD [employer]atering Barista: ??April Hernandez, RDMS, RDCS CPT4: ? 34293 BMI: ?27.62 Room: ? 540 Hist/Ind: ? Unknown LMP ?Hx ?EIF ?PPROM MEASUREMENTS & AGE ? GROWTH EVALUATION Measurement ??GA ? Range ? Srce %for GA Ratios ----- ---- ------- BPD ??8.4 cm 33w6d ([id number]) Hadl BPD 71% FL/BPD 0.71 (0.71 - 0.87* HC ??30.7 cm 34w1d ([id number]) Hadl HC ??49% FL/AC ??0.20 (0.20 - 0.24) AC ??29.7 cm 33w5d ([id number]) Hadl AC ??74% HC/AC ??1.03 (0.95 - 1.14) FL ?? 6.0 cm 31w0d (86o1n-79g8n) Hadl FL ??5% CI ? 0.77 (0.70 - 0.86) HL ?? 5.2 cm 30w1d ([id number]) Cyril HL ??6% GA for sonogram 33w1d (47t5n-32t0v) ?? Weight Estimate: based on (BPD,HC,AC,FL) Avg [...] ?<Electronic Signature> ??02/24/2021 11:55am Fabrice Solis MD [facility] ORDERABLES * (ABNORMAL) MAGNESIUM BLOOD (02/24/2021 1:45 AM CDT) [facility] Magnesium 6.0(HH) 1.6 - 2.6 mg/dL 02/24/2021 2:30 AM CDT [facility] Blood BLOOD SPECIMEN / Unknown Lab Venipuncture / Unknown 02/24/2021 1:45 AM CDT 02/24/2021 1:59 AM CDT Fabrice Solis MD LAB - CHEMISTRY YIMI MACIAS [facility] [address] [phone] * (ABNORMAL) FIBRINOGEN ACTIVITY (02/24/2021 1:45 AM CDT) Fibrinogen 418(H) 200 - 400 mg/dL 02/24/2021 2:13 AM CDT [facility] Blood BLOOD SPECIMEN / Unknown Lab Venipuncture / Unknown 02/24/2021 1:45 AM CDT 02/24/2021 1:59 AM CDT Fabrice Solis MD LAB - COAGULATION OR DERABLES Performing Organization Address [facility] de Phone Number [facility] [address] [place] [phone] * PTT (02/24/2021 1:45 AM CDT) Pathologist [facility] PTT 23.9 23.0 - 38.4 sec 02/24/2021 2:12 AM CDT [facility] Blood BLOOD SPECIMEN / Unknown Lab Venipuncture / Unknown 02/24/2021 1:45 AM CDT 02/24/2021 1:59 AM CDT Narrative [facility] - 02/24/2021 2:12 AM CDT Heparin Therapeutic Range for PTT: ??71.0 - 109.0 seconds. Fabrice Solis MD LAB - COAGULATION OR DERABLES Performing Organization Address [facility] de Phone Number [facility] [address] [place] [phone] * PT-INR (02/24/2021 1:45 AM CDT) Pathologist [facility] PT 13.3 12.1 - 14.8 sec 02/24/2021 2:11 AM CDT [facility] INR 1.0 0.9 - 1.1 02/24/2021 2:11 AM CDT [facility] Blood BLOOD SPECIMEN / Unknown Lab Venipuncture / Unknown 02/24/2021 1:45 AM CDT 02/24/2021 1:59 AM CDT Narrative [facility] - 02/24/2021 2:11 AM CDT Conventional Warfarin Anticoagulant Therapy: INR Reference Range: ??2.0-3.0 Intensive Warfarin Anticoagulant Therapy: INR Reference Range: ? 2.5-3.5 Fabrice Solis MD LAB - COAGULATION OR DERABLES Performing Organization Address City/State/[facility] Co de Phone Number [facility] [address] [place], [place] [phone] * (ABNORMAL) CBC W AUTO DIFFERENTIAL (02/24/2021 1:45 AM CDT) WBC 10.5 4.4 - 10.7 x10E9/L 02/24/2021 2:04 AM CDT [facility] WBC Corrected 02/24/2021 2:04 AM CDT [facility] RBC 3.65(L) 3.80 - 5.20 x10E12/L 02/24/2021 2:04 AM CDT [facility] Hemoglobin 10.3(L) 12.0 - 15.6 gm/dL 02/24/2021 2:04 AM CDT [facility] Hematocrit 31.6(L) 35.9 - 45.5 % 02/24/2021 2:04 AM CDT [facility] MCV 86.6 80.7 - 98.3 fl 02/24/2021 2:04 AM CDT [facility] MCH 28.2 26.7 - 34.0 pg 02/24/2021 2:04 AM CDT [facility] MCHC 32.6 30.8 - 35.9 gm/dL 02/24/2021 2:04 AM CDT [facility] Platelet Count 246 153 - 416 x10E9/L 02/24/2021 2:04 AM CDT [facility] RDW-CV 15.0(H) 12.1 - 14.9 % 02/24/2021 2:04 AM CDT [facility] MPV 9.7 9.4 - 12.9 fl 02/24/2021 2:04 AM CDT [facility] Neutrophils % 86.9(H) 44.0 - 73.0 % 02/24/2021 2:04 AM CDT [facility] Lymphocytes % 10.6(L) 20.0 - 43.0 % 02/24/2021 2:04 AM CDT [facility] Monocytes % 1.9(L) 5.0 - 13.0 % 02/24/2021 2:04 AM CDT [facility] Eosinophils % 0.0 0.0 - 6.0 % 02/24/2021 2:04 AM CDT [facility] Basophils % 0.0 0.0 - 2.0 % 02/24/2021 2:04 AM CDT [facility] Immature Granulocytes 0.6 0 - 1 % 02/24/2021 2:04 AM CDT [facility] Neutrophil Absolute 9.14(H) 2.01 - 7.14 x10E9/L 02/24/2021 2:04 AM CDT [facility] Lymphocytes Absolute 1.12 1.07 - 3.94 x10E9/L 02/24/2021 2:04 AM CDT [facility] Monocytes Absolute 0.20(L) 0.26 - 1.07 x10E9/L 02/24/2021 2:04 AM CDT [facility] Eosinophils Absolute 0.00 0 - 0.47 x10E9/L 02/24/2021 2:04 AM CDT [facility] Basophils Absolute 0.00 0 - 0.08 x10E9/L 02/24/2021 2:04 AM CDT [facility] Immature Granulocytes Absolute 0.06 0.00 - 0.06 x10E9/L 02/24/2021 2:04 AM CDT [facility] nRBC Auto 0 /100 WBC 02/24/2021 2:04 AM CDT [facility] Blood BLOOD SPECIMEN / Unknown Lab Venipuncture / Unknown 02/24/2021 1:45 AM CDT 02/24/2021 1:59 AM CDT Fabrice Solis MD LAB - HEMATOLOGY ORD ERABLES [facility] [address] [place] [address] * (ABNORMAL) DRUG SCREEN TOX URINE PANEL (02/23/2021 6:23 PM CDT) [facility] Amphetamines Screen Urine Not detected Not detected 02/23/2021 7:09 PM CDT [facility] Barbiturates Screen Urine Not detected Not detected 02/23/2021 7:09 PM CDT [facility] Benzodiazepines Screen Urine Not detected Not detected 02/23/2021 7:09 PM CDT [facility] Cannabinoids Screen Urine Detected(A) Not detected 02/23/2021 7:09 PM CDT [facility] Cocaine Screen Urine Not detected Not detected 02/23/2021 7:09 PM CDT [facility] Fentanyl Urine Not detected Not detected 02/23/2021 7:09 PM CDT [facility] Methadone Screen Urine Not detected Not detected 02/23/2021 7:09 PM CDT [facility] Opiate Screen Urine Not detected Not detected 02/23/2021 7:09 PM CDT [facility] Phencyclidine Screen Urine Not detected Not detected 02/23/2021 7:09 PM CDT [facility] Urine URINE / Unknown Collection / Unknown 02/23/2021 6:23 PM CDT 02/23/2021 6:39 PM CDT [facility] - 02/23/2021 7:09 PM CDT This [...] MD LAB - URINE CHEMISTR Y ORDERABLES [facility] [address] [place], [place] [id number] * TRICHOMONAS RAPID TEST (02/23/2021 6:22 PM CDT) Trichomonas Rapid Test Negative Negative 02/23/2021 7:05 PM CDT [facility] Microbiology VAGINAL SWAB / Unknown Collection / Unknown 02/23/2021 6:22 PM CDT 02/23/2021 6:39 PM CDT Fabrice Solis MD LAB - MICROBIOLOGY O RDERABLES Performing Organization Address [facility] Co de Phone Number [facility] [address] [place] [id number] * CHLAMYDIA + GC AMPLIFIED PROBE (STL) (02/23/2021 6:22 PM CDT) Chlamydia Amplified Probe Negative Negative 02/24/2021 5:54 AM CDT [facility] GC Amplified Probe Negative Negative 02/24/2021 5:54 AM CDT [facility] Microbiology PART OF UTERINE CERVIX / Unknown Collection / Unknown 02/23/2021 6:22 PM CDT 02/23/2021 6:39 PM CDT Narrative [facility] - 02/24/2021 5:54 AM CDT Results based on detection/no detection of ribosomal RNA by amplified method. Fabrice Solis MD LAB - MICROBIOLOGY O RDERABLES Performing Organization Address [facility] Co de Phone Number [facility] [address] [phone] * BLOOD TYPE VERIFICATION (02/23/2021 6:21 PM CDT) ABO Rh B POS 02/23/2021 7:0 4 PM CDT [facility] Blood Bank BLOOD SPECIMEN / Unknown Venipuncture / Unknown 02/23/2021 6:21 PM CDT 02/23/2021 6:33 PM CDT Fabrice Solis MD LAB - BLOOD BANK ORD ERABLES Performing Organization Address City/[facility] Co de Phone Number [facility] [address] [place] [id number], [facility] [phone] * CULTURE STREP B (02/23/2021 6:20 PM CDT) Culture Strep B Negative for beta-hemolytic Streptococcus Group B ARTIE 02/27/2021 5:36 AM CDT [facility] Microbiology MISCELLANEOUS SAMPLES / Unknown Collection / Unknown 02/23/2021 6:20 PM CDT 02/23/2021 6:39 PM CDT Fabrice Solis MD LAB - MICROBIOLOGY O RDERABLES Performing Organization Address [facility]/ZIP Co de Phone Number [facility] [address] [phone] * (ABNORMAL) RUPTURE OF MEMBRANES EVAL (02/23/2021 5:35 PM CDT) RUPTURE OF MEMBRANES POSITIVE(A ) NEGATIVE 02/23/2021 5:47 PM CDT [facility] Fluid VAGINAL SWAB / Unknown Collection / Unknown 02/23/2021 5:35 PM CDT 02/23/2021 5:38 PM CDT Narrative [facility] - 02/23/2021 5:47 PM CDT [...] BODY FLUID ORD ERABLES Performing Organization Address City/[facility]/ZIP Co de Phone Number [facility] [address] [place] [address] * (ABNORMAL) CBC W AUTO DIFFERENTIAL (02/23/2021 [...] - 416 x10E9/L 02/23/2021 5:52 PM CDT [facility] RDW-CV 15.3(H) 12.1 - 14.9 % 02/23/2021 5:52 PM CDT [facility] MPV 10.4 9.4 - 12.9 fl 02/23/2021 5:52 PM CDT [facility] Neutrophils % 89.5(H) 44.0 - 73.0 % 02/23/2021 5:52 PM CDT [facility] Lymphocytes % 8.4(L) 20.0 - 43.0 % 02/23/2021 5:52 PM CDT [facility] Monocytes % 1.3(L) 5.0 - 13.0 % 02/23/2021 5:52 PM CDT [facility] Eosinophils % 0.1 0.0 - 6.0 % 02/23/2021 5:52 PM CDT [facility] Basophils % 0.1 0.0 - 2.0 % 02/23/2021 5:52 PM CDT [facility] Immature Granulocytes 0.6 0 - 1 % 02/23/2021 5:52 PM CDT [facility] Neutrophil Absolute 12.02(H) 2.01 - 7.14 x10E9/L 02/23/2021 5:52 PM CDT [facility] Lymphocytes Absolute 1.13 1.07 - 3.94 x10E9/L 02/23/2021 5:52 PM CDT [facility] Monocytes Absolute 0.17(L) 0.26 - 1.07 x10E9/L 02/23/2021 5:52 PM CDT [facility] Eosinophils Absolute 0.02 0 - 0.47 x10E9/L 02/23/2021 5:52 PM CDT [facility] Basophils Absolute 0.02 0 - 0.08 x10E9/L 02/23/2021 5:52 PM CDT [facility] Immature Granulocytes Absolute 0.08(H) 0.00 - 0.06 x10E9/L 02/23/2021 5:52 PM CDT [facility] nRBC Auto 0 /100 WBC 02/23/2021 5:52 PM CDT [facility] Blood BLOOD SPECIMEN / Unknown Lab Venipuncture / Unknown 02/23/2021 4:53 PM CDT 02/23/2021 5:47 PM CDT Fabrice Solis MD LAB - HEMATOLOGY ORD ERABLES [facility] [address] [place] [address] * TYPE + SCREEN PANEL (02/23/2021 4:53 PM CDT) ABO Rh B POS 02/23/2021 6:28 PM CDT [facility] Comment:No history; collect retype. Antibody Screen NEG 6:28 PM CDT [facility] Blood Bank BLOOD SPECIMEN / Unknown Lab Venipuncture / Unknown 02/23/2021 4:53 PM CDT 02/23/2021 5:47 PM CDT Fabrice Solis MD LAB - BLOOD BANK ORD ERABLES [facility] [address] [place] [address], [facility] [phone] documented in this encounter Visit Diagnoses Diagnosis [...] membranes (PPROM) with unknown onset of labor ([facility]) Hx of section Other postprocedural status Herpes [...] ultrasound to assess interval growth of fetus ([facility]) documented in this encounter Administered Medications Inactive [...] Infusing)2327 ($ Given - Provider: Margareth Armstrong, IPO) 0.9% NaCl injection 10-40 mL 10-40 mL, [...] RN)[id number] (Current Rate - Provider: Margareth Armstrong, IPO) oxytocin (Pitocin) 30 units in 500 mL [...]
--- OUTSIDE RECORDS SUMMARY | 2024-10-29 00:28 | XMS_ITS | Patient Health Summary ---
Author Organization [facility] Address [address] [place] [address] Care Team Providers Care Catheter Builder Name Role Phone Unavailable Primary Care Provider Unavailabl e Note from [facility],non-owned Affiliates and Associated Physician Practices is amultiple site organization consisting of ambulatory clinics and hospital sitesin [place], [place], [place] and [place]. This disclosure is being madepursuant to the Care Everywhere program and may not contain all information available regarding this patient. Last updated 18.[facility] Allergies * Amoxicillin(Rash) -Medium Criticality Medications [...] - 15.6 gm/dL 03/05/2021 8:29 AM CDT [facility] Hematocrit 34.4(L) 35.9 - 45.5 % 03/05/2021 8:29 AM CDT [facility] Blood BLOOD SPECIMEN / Unknown Lab Venipuncture / Unknown 03/05/2021 7:14 AM CDT 03/05/2021 8:22 AM CDT Fabrice Solis MD LAB - HEMATOLOGY ORD ERABLES [facility] [address] [place] [address] * PATHOLOGY TISSUE EXAM (STL) (03/04/2021 11:16 PM CDT) Pathologist [facility] Case Report Surgical Pathology Report ? Case: [id number] ? Authorizing Provider: ??Chelsie Astorga MD ?Collected: ? 03/04/2021 11:16 PM ? Ordering Location: ? [facility] 5 R ? Received: ?03/05/2021 08:34 AM ? Pathologist: ? Carline Sorto MD ? Specimen: ?Placenta 3rd Trimester ? 03/08/2021 11:28 AM [facility] Final Diagnosis Placenta, vaginal delivery - Small, hypermature placenta (weight <10th percentile for gestational age) - membranes with no histopathologic abnormality - Three-vessel umbilical cord with no histopathologic abnormality 03/08/2021 11:28 AM [facility] Clinical History The patient is a 25-year-old woman at 34 weeks, 0 days gestation, with premature rupture of membranes 02/13. Procedure/findings: vaginal delivery, baby to NICU. 03/08/2021 11:28 AM [facility] Gross Description The requisition and specimen [...] red-morales, spongy cut surfaces with no lesions. Cane Cutter sections submitted as follows: A1-umbilical cord and membrane roll, A2-placental disc central, A3-placental disc peripheral. LJ 03/08/2021 11:28 AM [facility] Microscopic Description Microscopic examination substantiates the above diagnosis. 03/08/2021 11:28 AM [facility] Disclaimer All histochemical and/or immunohistochemical results are interpreted with controls that demonstrate appropriate staining reactions before reporting results. Note on use of immunocytochemistry reagents: This test was developed and its performance characteristic determined by [facility], Department of Laboratory Medicine. It [...] interpreted with caution. 03/08/2021 11:28 AM CDT [facility] Embedded Images 03/08/2021 11:28 AM CDT [facility] Pathology/Cytolo gy ENTIRE PLACENTA / Unknown Collection / Unknown 03/04/2021 11:16 PM CDT 03/05/2021 8:34 AM CDT Chelsie Astorga MD LAB - PATHOLOGY /CYTOLOGY ORDERABLES [facility] [address] [place] [phone] * (ABNORMAL) BLOOD GASES CORD ARTERIAL (03/04/2021 [...] 03/04/2021 11:04 PM CDT [facility] RESP THERAPY Automotive Accessory Installer ID [id number] 03/04/2021 11:04 PM CDT [facility] Blood, arterial CORD BLOOD SPECIMEN / Unknown 03/04/2021 10:52 PM CDT 03/04/2021 10:52 PM CDT Chelsie Astorga MD LAB - BLOOD GAS ES ORDERABLES [facility] [address] [place] [address] * (ABNORMAL) BLOOD GASES CORD NANCY (03/04/2021 [...] 03/04/2021 11:05 PM CDT [facility] RESP THERAPY Automotive Accessory Installer ID [id number] 03/04/2021 11:05 PM CDT [facility] Blood CORD BLOOD SPECIMEN / Unknown 03/04/2021 10:52 PM CDT 03/04/2021 10:52 PM CDT Chelsie Astorga MD LAB - BLOOD GAS ES ORDERABLES [facility] [address] [place] [address], [facility] [phone] * EPIDURAL BLOCK PERF (03/04/2021 4:08 PM CDT) Narrative Sharifa Alvarado APRN-STREET LIGHT WIRER - 03/04/2021 4:08 PM CDT Sharifa Alvarado APRN-STREET LIGHT WIRER ? 03/04/2021 ??4:09 PM Neuraxial Block Note [...] ??2 Staff: ?? Anesthesia Provider: ??Sharifa Alvarado, OIL RIGGER-STREET LIGHT WIRER ?? - ?? performed the procedure Trent Phillips MD GENERAL ANESTHESIA ORDERABLES * TYPE + SCREEN PANEL (03/04/2021 7:33 AM CDT) Only the most recent of3 resultswithin the time period is included. Pathologist [facility] ABO Rh B POS 03/04/2021 8:20 AM CDT [facility] Comment:History checked. Antibody Screen NEG 8:20 AM CDT [facility] Blood Bank BLOOD SPECIMEN / Unknown Venipuncture / Unknown 03/04/2021 7:33 AM CDT 03/04/2021 7:38 AM CDT Fabrice Solis MD LAB - BLOOD BANK ORD ERABLES [facility] [address] [place] [address], [facility] [phone] * (ABNORMAL) CBC W AUTO DIFFERENTIAL (03/04/2021 7:33 AM CDT) Only the most recent of4 resultswithin the time period is included. WBC 11.6(H) 4.4 - 10.7 x10E9/L 03/04/2021 7:45 AM CDT [facility] WBC Corrected 03/04/2021 7:45 AM CDT [facility] RBC 3.75(L) 3.80 - 5.20 x10E12/L 03/04/2021 7:45 AM CDT [facility] Hemoglobin 10.7(L) 12.0 - 15.6 gm/dL 03/04/2021 7:45 AM CDT [facility] Hematocrit 32.4(L) 35.9 - 45.5 % 03/04/2021 7:45 AM CDT [facility] MCV 86.4 80.7 - 98.3 fl 03/04/2021 7:45 AM CDT [facility] MCH 28.5 26.7 - 34.0 pg 03/04/2021 7:45 AM CDT [facility] MCHC 33.0 30.8 - 35.9 gm/dL 03/04/2021 7:45 AM CDT [facility] Platelet Count 251 153 - 416 x10E9/L 03/04/2021 7:45 AM CDT [facility] RDW-CV 15.8(H) 12.1 - 14.9 % 03/04/2021 7:45 AM CDT [facility] MPV 9.6 9.4 - 12.9 fl 03/04/2021 7:45 AM CDT [facility] Neutrophils % 64.1 44.0 - 73.0 % 03/04/2021 7:45 AM CDT [facility] Lymphocytes % 22.9 20.0 - 43.0 % 03/04/2021 7:45 AM CDT [facility] Monocytes % 9.7 5.0 - 13.0 % 03/04/2021 7:45 AM CDT [facility] Eosinophils % 2.1 0.0 - 6.0 % 03/04/2021 7:45 AM CDT [facility] Basophils % 0.3 0.0 - 2.0 % 03/04/2021 7:45 AM CDT [facility] Immature Granulocytes 0.9 0 - 1 % 03/04/2021 7:45 AM CDT [facility] Neutrophil Absolute 7.45(H) 2.01 - 7.14 x10E9/L 03/04/2021 7:45 AM CDT [facility] Lymphocytes Absolute 2.67 1.07 - 3.94 x10E9/L 03/04/2021 7:45 AM CDT [facility] Monocytes Absolute 1.13(H) 0.26 - 1.07 x10E9/L 03/04/2021 7:45 AM CDT [facility] Eosinophils Absolute 0.24 0 - 0.47 x10E9/L 03/04/2021 7:45 AM CDT [facility] Basophils Absolute 0.04 0 - 0.08 x10E9/L 03/04/2021 7:45 AM CDT [facility] Immature Granulocytes Absolute 0.11(H) 0.00 - 0.06 x10E9/L 03/04/2021 7:45 AM CDT [facility] nRBC Auto 0 /100 WBC 03/04/2021 7:45 AM CDT [facility] Blood BLOOD SPECIMEN / Unknown Venipuncture / Unknown 03/04/2021 7:33 AM CDT 03/04/2021 7:38 AM CDT Fabrice Solis MD LAB - HEMATOLOGY ORD ERABLES [facility] [address] [place] [address] * NON-STRESS TEST (03/03/2021 11:32 PM CDT) [...] - 170 ug/dL 02/26/2021 3:44 PM CDT [facility] Comment:Attention clinician: Reference Range change. Transferrin 399(H) 180 - 382 mg/dL 02/26/2021 3:44 PM CDT [facility] Comment:Attention clinician: Reference Range change. TIBC Calculated 499(H) 240 - 450 ug/dL 02/26/2021 3:44 PM CDT [facility] Iron Saturation % 9(L) 20 - 50 % 02/26/2021 3:44 PM CDT [facility] Blood BLOOD SPECIMEN / Unknown Venipuncture / Unknown 02/26/2021 3:14 PM CDT 02/26/2021 3:25 PM CDT Hali Tomas OIL RIGGER-MANAGER DAIRY LAB - EXCEL SPECIALIST RY ORDERABLES Performing Organization Address [facility] de Phone Number [facility] [address] [place] [phone] * FERRITIN (02/26/2021 3:14 PM CDT) Ferritin 7 5 - 204 ng/mL 02/26/2021 4:12 PM CDT [facility] Blood BLOOD SPECIMEN / Unknown Venipuncture / Unknown 02/26/2021 3:14 PM CDT 02/26/2021 3:25 PM CDT Hali Tomas OIL RIGGER-MANAGER DAIRY LAB - EXCEL SPECIALIST RY ORDERABLES Performing Organization Address [facility] de Phone Number [facility] [address] [place] [phone] * SONOGRAM - COMPLETE (02/24/2021 9:45 AM CDT) Only the most recent of3 resultswithin the time period is included. Anatomical Region Laterality Modality Other 02/24/2021 9:45 AM CDT Narrative 02/24/2021 11:55 AM CDT ?Formerly named [facility] ? [place] [facility] ?PHONE: ??FAX: Pat. Name: ?HANNAH LUIS Pat. No: ?[id number] Study Date: ?? 02/24/2021 ??9:45am , Age: ? 1995, 25 Pregnancies: ?? 5, Para 3, Ab 1 Height: ? 65 in Weight: ? 166 lb LMP: ?Unknown GA by Base: ?? 32w6d ?? SRINIVASA: 04/15/2021 GA by US: ? 33w1d ?? SRINIVASA: 04/13/2021 GA Selected: ??32w6d (From [facility]) SRINIVASA: ?04/15/2021 Referring MD: Junie Brizuela MD Pre K Lead Teacher: ??April Hernandez, HALIE, ANNIE CPT4: ? 17803 BMI: ?27.62 Room: ? 540 Hist/Ind: ? Unknown LMP ?Hx ?EIF ?PPROM MEASUREMENTS & AGE ? GROWTH EVALUATION Measurement ??GA ? Range ? Srce %for GA Ratios ----- ---- ------- BPD ??8.4 cm 33w6d (01v2o-51d6r) Hadl BPD 71% FL/BPD 0.71 (0.71 - 0.87* HC ??30.7 cm 34w1d (37i8g-58q9o) Hadl HC ??49% FL/AC ??0.20 (0.20 - 0.24) AC ??29.7 cm 33w5d (08q3x-05p2u) Hadl AC ??74% HC/AC ??1.03 (0.95 - 1.14) FL ?? 6.0 cm 31w0d (66g1p-02c1t) Hadl FL ??5% CI ? 0.77 (0.70 - 0.86) HL ?? 5.2 cm 30w1d (08e6g-74i7x) Cyril HL ??6% GA for sonogram 33w1d (77v2b-81c7x) ?? Weight Estimate: based on (BPD,HC,AC,FL) Avg [...] ?<Electronic Signature> ??02/24/2021 11:55am Fabrice Solis MD [facility] ORDERABLES * (ABNORMAL) FIBRINOGEN ACTIVITY (02/24/2021 1:45 AM CDT) Pathologist [facility] Fibrinogen 418(H) 200 - 400 mg/dL 02/24/2021 2:13 AM CDT [facility] Blood BLOOD SPECIMEN / Unknown Lab Venipuncture / Unknown 02/24/2021 1:45 AM CDT 02/24/2021 1:59 AM CDT Fabrice Solis MD LAB - COAGULATION OR DERABLES Performing Organization Address [facility] de Phone Number [facility] [address] [place] [phone] * PTT (02/24/2021 1:45 AM CDT) Pathologist [facility] PTT 23.9 23.0 - 38.4 sec 02/24/2021 2:12 AM CDT [facility] Blood BLOOD SPECIMEN / Unknown Lab Venipuncture / Unknown 02/24/2021 1:45 AM CDT 02/24/2021 1:59 AM CDT Narrative [facility] - 02/24/2021 2:12 AM CDT Heparin Therapeutic Range for PTT: ??71.0 - 109.0 seconds. Fabrice Solis MD LAB - COAGULATION OR DERABLES Performing Organization Address [facility] de Phone Number [facility] [address] [place] [phone] * PT-INR (02/24/2021 1:45 AM CDT) Pathologist [facility] PT 13.3 12.1 - 14.8 sec 02/24/2021 2:11 AM CDT [facility] INR 1.0 0.9 - 1.1 02/24/2021 2:11 AM CDT [facility] Blood BLOOD SPECIMEN / Unknown Lab Venipuncture / Unknown 02/24/2021 1:45 AM CDT 02/24/2021 1:59 AM CDT Narrative [facility] - 02/24/2021 2:11 AM CDT Conventional Warfarin Anticoagulant Therapy: INR Reference Range: ??2.0-3.0 Intensive Warfarin Anticoagulant Therapy: INR Reference Range: ? 2.5-3.5 Fabrice Solis MD LAB - COAGULATION OR DERABLES Performing Organization Address City/[facility]/ZIP Co de Phone Number [facility] [address] [place], [place] [phone] * (ABNORMAL) MAGNESIUM BLOOD (02/24/2021 1:45 AM CDT) [facility] Magnesium 6.0(HH) 1.6 - 2.6 mg/dL 02/24/2021 2:30 AM CDT [facility] Blood BLOOD SPECIMEN / Unknown Lab Venipuncture / Unknown 02/24/2021 1:45 AM CDT 02/24/2021 1:59 AM CDT Fabrice Solis MD LAB - CHEMISTRY ORDE RABLES Performing Organization Address [facility]/ZIP Co de Phone Number [facility] [address] [place] [phone] * (ABNORMAL) DRUG SCREEN TOX URINE PANEL (02/23/2021 6:23 PM CDT) [facility] Amphetamines Screen Urine Not detected Not detected 02/23/2021 7:09 PM CDT [facility] Barbiturates Screen Urine Not detected Not detected 02/23/2021 7:09 PM CDT [facility] Benzodiazepines Screen Urine Not detected Not detected 02/23/2021 7:09 PM CDT [facility] Cannabinoids Screen Urine Detected(A) Not detected 02/23/2021 7:09 PM CDT [facility] Cocaine Screen Urine Not detected Not detected 02/23/2021 7:09 PM CDT [facility] Fentanyl Urine Not detected Not detected 02/23/2021 7:09 PM CDT [facility] Methadone Screen Urine Not detected Not detected 02/23/2021 7:09 PM CDT [facility] Opiate Screen Urine Not detected Not detected 02/23/2021 7:09 PM CDT [facility] Phencyclidine Screen Urine Not detected Not detected 02/23/2021 7:09 PM CDT [facility] Urine URINE / Unknown Collection / Unknown 02/23/2021 6:23 PM CDT 02/23/2021 6:39 PM CDT Narrative [facility] - 02/23/2021 7:09 PM CDT [...] URINE CHEMISTR Y ORDERABLES Performing Organization Address City/State/[facility] Co de Phone Number [facility] [address] [place], [place] [phone] * CHLAMYDIA + GC AMPLIFIED PROBE (STL) (02/23/2021 6:22 PM CDT) Pathologist [facility] Chlamydia Amplified Probe Negative Negative 02/24/2021 5:54 AM CDT [facility] GC Amplified Probe Negative Negative 02/24/2021 5:54 AM CDT [facility] Microbiology PART OF UTERINE CERVIX / Unknown Collection / Unknown 02/23/2021 6:22 PM CDT 02/23/2021 6:39 PM CDT Narrative [facility] - 02/24/2021 5:54 AM CDT Results based on detection/no detection of ribosomal RNA by amplified method. Fabrice Solis MD LAB - MICROBIOLOGY O RDERABLES [facility] [address] [place] [phone] * TRICHOMONAS RAPID TEST (02/23/2021 6:22 PM CDT) Trichomonas Rapid Test Negative Negative 02/23/2021 7:05 PM CDT [facility] Microbiology VAGINAL SWAB / Unknown Collection / Unknown 02/23/2021 6:22 PM CDT 02/23/2021 6:39 PM CDT Fabrice Solis MD LAB - MICROBIOLOGY O RDERABLES Performing Organization Address City/[facility]/ZIP Co de Phone Number [facility] [address] [place] [address] * BLOOD TYPE VERIFICATION (02/23/2021 6:21 PM CDT) ABO Rh B POS 02/23/2021 7:0 4 PM CDT [facility] Blood Bank BLOOD SPECIMEN / Unknown Venipuncture / Unknown 02/23/2021 6:21 PM CDT 02/23/2021 6:33 PM CDT Fabrice Solis MD LAB - BLOOD BANK ORD ERABLES Performing Organization Address City/[facility] Co de Phone Number [facility] [address] [place], [place] [address] [phone] * CULTURE STREP B (02/23/2021 6:20 PM CDT) Culture Strep B Negative for beta-hemolytic Streptococcus Group B ARTIE 02/27/2021 5:36 AM CDT [facility] Microbiology MISCELLANEOUS SAMPLES / Unknown Collection / Unknown 02/23/2021 6:20 PM CDT 02/23/2021 6:39 PM CDT Fabrice Solis MD LAB - MICROBIOLOGY O RDERABLES Performing Organization Address [facility] Co de Phone Number [facility] [address] [place] [address], [facility] [phone] * (ABNORMAL) RUPTURE OF MEMBRANES EVAL (02/23/2021 5:35 PM CDT) RUPTURE OF MEMBRANES POSITIVE(A ) NEGATIVE 02/23/2021 5:47 PM CDT [facility] Fluid VAGINAL SWAB / Unknown Collection / Unknown 02/23/2021 5:35 PM CDT 02/23/2021 5:38 PM CDT Narrative [facility] - 02/23/2021 5:47 PM CDT [...] BODY FLUID ORD ERABLES Performing Organization Address [facility] Co de Phone Number [facility] [address] [place] [address]
--- OUTSIDE RECORDS SUMMARY | 2024-10-29 00:28 | XMS_ITS | Clinical Summary ---
Author Organization [facility] Address [address] [place] [address] Care Team Providers Care Agile Project Manager Name Role Phone Unavailable Primary Care Provider Unavailabl e Source Comments [facility],non-owned Affiliates and Associated Physician Practices is amultiple site organization consisting of ambulatory clinics and hospital sitesin [place], [place], [place] and [place]. This disclosure is being madepursuant to the Care Everywhere program and may not contain all information available regarding this patient. Last updated 18.[facility] Allergies Active Allergy Reactions Criticality Noted Date [...]
--- OUTSIDE RECORDS SUMMARY | 2024-10-29 00:28 | XMS_ITS | Referral Summary ---
Author Organization [facility] Address [address] [place] [address] Care Team Providers Care Ultrasound Technol Name Role Phone Unavailable Primary Care Provider Unavailabl e Source Comments [facility],non-owned Affiliates and Associated Physician Practices is amultiple site organization consisting of ambulatory clinics and hospital sitesin [place], [place], [place] and [place]. This disclosure is being madepursuant to the Care Everywhere program and may not contain all information available regarding this patient. Last updated 18.[facility] [employer] Allergies Active Allergy Reactions Criticality Noted Date [...]
--- OUTSIDE RECORDS SUMMARY | 2024-10-29 00:28 | XMS_ITS | Encounter Summary ---
Author Organization [facility] Address [facility] [place] [address] Care Team Providers Care Sales Service Professional Name Role Phone Unavailable Primary Care Provider Unavailabl e Reason for Visit * Reason Onset Date Comments Confirmation 10/21/2022 Encounter Details Date Type Department Care Team (Late st Contact Info) Description 10/21/2022 Telephone [facility] - Internal Medicine [address] [place] [phone] Ajay Marino MD [address] [place] [phone] Confirmation Social History Tobacco Use Types Packs/Day [...] listed above, [facility] What is the reason for call? Attempted to reach patient to confirm upcoming appt with Dr. Marino. Appointment cancelled. Expected Response from the Clinic? N/A UCTION GRAPHIC DESIGNER documented in this encounter Plan of Treatment Not on file documented as of this encounter Visit Diagnoses Not on filedocumented in this encounter
--- OUTSIDE RECORDS SUMMARY | 2024-10-29 00:29 | XMS_ITS | Encounter Summary ---
Author Organization [facility] Address [address] [facility] [place] [address] Care Team Providers Care Ski Instructor Name Role Phone Unavailable Primary Care Provider Unavailabl e Reason for Visit * Reason Onset Date Comments Missed Appointment 12/02/2020 missed 11/30/20 Encounter Details Date Type Department Care Team (Late st Contact Info) Description 12/02/2020 Telephone [facility] [address] [place] [address] Igor Siegel Missed Appointment (missed 11/30/20) Social [...] for her to call back to reschedule. STIC MANAGER documented in this encounter Plan of Treatment Not on file documented as of this encounter Visit Diagnoses Not on filedocumented in this encounter
--- OUTSIDE RECORDS SUMMARY | 2024-10-29 00:29 | XMS_ITS | Encounter Summary ---
Author Organization [facility] Address [address] [facility] [place] [address] Care Team Providers Care Fiscal Assistant Name Role Phone Unavailable Primary Care Provider Unavailabl e Reason for Visit * Reason Comments Ultrasound * Evaluate & Treat (Routine) - Closed Specialty Diagnoses / Procedures Referred By Contac t Referred To Contact Diagnoses Abnormal ultrasonic finding on screening of mother Encounter for screening, unspecified (HCC) Supervision of other high risk pregnancies, unspecified trimester ([facility]) Procedures ME ULTRASOUND, UTERUS Elisa Krueger MD [address] [address] [facility] [address] [place] [address] Referral ID Status Reason Start Date Expiration Date Visits Re quested Visits Authorized [id number] Closed 10/07/2020 12/07/2020 1 1 Encounter Details Date Type Department Care Team (Latest Contact Info) Description 10/07/2020 12:31 PM RENEWABLE ENERGY BROKER - 10/07/2020 11:59 PM RENEWABLE ENERGY BROKER Hospital Encounter [facility] Women's Health Maternal & Care [address] [place] [address] Tima Bejarano MD Discharge Disposition: [...] tech were wearing masks TEMPS Pt:97.9 Guest: WABLE ENERGY BROKER documented in this encounter Plan of Treatment Not on file documented as of this encounter Procedures Procedure Name Priority Date/Time Associated Diagnosis Comments SONOGRAM - COMPLETE Routine 10/07/2020 1 2:56 PM RENEWABLE ENERGY BROKER Date of last menstrual period (LMP) unknown documented in this encounter Results * SONOGRAM - COMPLETE (10/07/2020 12:56 PM RENEWABLE ENERGY BROKER) Anatomical Region Laterality Modality Other 10/07/2020 12:5 6 PM RENEWABLE ENERGY BROKER Narrative 10/07/2020 11:10 PM RENEWABLE ENERGY BROKER ? - [facility]E [facility] Maternal Medicine ? [facility] Care Center ?PHONE: ??FAX: ? Pat. Name: ?HANNAH PYLE. No: ?[id number] Study Date: ?? 10/07/2020 ??12:56pm , Age: ? 1995, 25 Pregnancies: ?? 5, Para 3, Ab 1 Height: ? 65 in Weight: ? 166 lb LMP: ?Unknown GA by US: ? 13w3d ?? SRINIVASA: 04/11/2021 GA Selected: ??12w6d (From Known E) SRINIVASA: ?04/15/2021 Referring MD: Junie Brizuela MD Laborer Operator: ??Bela Villafuerte RDMS CPT4: ? 13177 BMI: ?27.62 Hist/Ind: ? Dating ?Unknown LMP ?Hx MEASUREMENTS & AGE ? GROWTH EVALUATION Measurement ??GA ? Range ? Srce %for GA Ratios ----- ---- ------- CRL ??7.4 cm 13w3d ([id number]) Hadl CRL 76% GA for sonogram 13w3d (15c8l-88p4s) based on (CRL) Avg ? Heart Rate: [...] <Electronic Signature> ??10/07/2020 11:11pm Tima Bejarano MD [facility] ORDERABLES documented in this encounter Visit Diagnoses Diagnosis Date of last menstrual period (LMP) unknown- Primary Encounter for screening for uncertain dates (HCC) 12 weeks gestation of (HCC) state, incidental documented in this encounter
--- OUTSIDE RECORDS SUMMARY | 2024-10-29 00:29 | XMS_ITS | Encounter Summary ---
Author Organization [facility] Address [address] [facility] [place] [address] Care Team Providers Care Rag Cutting Machine Operator Name Role Phone Unavailable Primary Care Provider Unavailabl e Reason for Visit * Reason Comments Ultrasound Encounter Details Date Type Department Care Team (Latest Contact Info) Description 01/06/2021 10:06 AM BERRY PICKER - 01/06/2021 11:59 PM BERRY PICKER Hospital Encounter [facility] Maternal & Care [address] [place] [address] Tima Bejarano MD Discharge Disposition: Home or [...] - COMPLETE Routine 01/06/2021 1 0:14 AM BERRY PICKER Fifth (HCC) Encounter for ultrasound (HCC) Hx of section documented in this encounter Results * SONOGRAM - COMPLETE (01/06/2021 10:14 AM BERRY PICKER) Anatomical Region Laterality Modality Other 01/06/2021 10:1 4 AM BERRY PICKER Narrative 01/06/2021 11:11 AM BERRY PICKER ? - [facility]E [facility] Maternal Medicine ? M[facility] & Care Center ?PHONE: ??FAX: ? Pat. Name: ?HANNAH PYLE Pat. No: ?[id number] Study Date: ?? 01/06/2021 ??10:14am , Age: ? 1995, 25 Pregnancies: ?? 5, Para 3, Ab 1 Height: ? 65 in Weight: ? 166 lb LMP: ?Unknown GA by Base: ?? 25w6d ?? SRINIVASA: 04/15/2021 GA by US: ? 25w6d ?? SRINIVASA: 04/15/2021 GA Selected: ??25w6d (From [facility]) SRINIVASA: ?04/15/2021 Referring MD: Junie Brizuela MD Chemical Dependency Counselor: ??Suha Downey RDMS CPT4: ? 72317 BMI: ?27.62 Hist/Ind: ? Unknown LMP ?Hx MEASUREMENTS & AGE ? GROWTH EVALUATION Measurement ??GA ? Range ? Srce %for GA Ratios ----- ---- ------- BPD ??6.6 cm 26w4d (33j5r-93g8t) Hadl BPD 63% FL/BPD 0.71 (0.71 - 0.87) HC ??24.1 cm 26w1d (84p9a-61a5o) Hadl HC ??35% FL/AC ??0.21 (0.20 - 0.24) AC ??22.6 cm 27w0d (52g3j-80r5a) Hadl AC ??74% HC/AC ??1.07 (1.01 - 1.20) FL ?? 4.7 cm 25w4d (88y6b-95z4c) Hadl FL ??28% CI ? 0.77 (0.70 - 0.86) HL ?? 4.5 cm 26w5d (95k8d-73l4c) Cyril HL ??64% Cere 3.0 cm 26w3d (72m8b-65i6a) Hill Cere64% NB ?? 0.8 cm ? (59i4w-05j7q) Sone NB ??28% GA for sonogram 25w6d (50y9x-02d9i) ?? Weight Estimate: based on (BPD,HC,AC,FL) Hadlock [...] <Electronic Signature> ??01/06/2021 11:10am Tima Bejarano MD [facility] ORDERABLES documented in this encounter Visit Diagnoses Diagnosis Fifth (HCC) state, incidental Encounter for ultrasound ([facility]) Encounter for routine screening for malformation using ultrasonics Hx of section Other postprocedural status Herpes Herpes simplex without mention of complication Encounter for screening for uncertain dates (HCC) 25 weeks gestation of (HCC) state, incidental documented in this encounter
--- OUTSIDE RECORDS SUMMARY | 2024-10-29 00:29 | XMS_ITS | Encounter Summary ---
Author Organization [facility] Address [address] [facility] [place] [address] Care Team Providers Care Transport Tank Technician Name Role Phone Unavailable Primary Care Provider Unavailabl e Reason for Visit * Reason Onset Date Comments Missed Appointment 12/14/2020 Encounter Details Date Type Department Care Team (Late st Contact Info) Description 12/14/2020 Telephone [facility]'s Health Maternal & Care [address] [place] [address] Yasmine Schaffer RN Missed Appointment Social History [...] call our office with any further questions. D WING AIRCRAFT FLIGHT ENGINEER documented in this encounter Plan of Treatment Not on file documented as of this encounter Visit Diagnoses Diagnosis Fifth (HCC) state, incidental Encounter for ultrasound ([facility]) Encounter for routine screening for malformation using ultrasonics Hx of section Other postprocedural status Herpes Herpes simplex without mention of complication documented in this encounter
--- OUTSIDE RECORDS SUMMARY | 2024-10-29 00:29 | XMS_ITS | Encounter Summary ---
Author Organization [facility] Address [address] [facility] [place] [address] Care Team Providers Care Warehouse Worker 2Nd Shift Name Role Phone Unavailable Primary Care Provider Unavailabl e Reason for Visit * Reason Onset Date Comments Missed Appointment 12/04/2020 missed 11/30/20 appt Encounter Details Date Type Department Care Team (Late st Contact Info) Description 12/04/2020 Telephone [facility]'s Health Maternal & Care [address] [place] [address] Igor Siegel Missed Appointment (missed 11/30/20 appt) [...] reschedule missed appt on 11/30/20 left VM FILER documented in this encounter Plan of Treatment Not on file documented as of this encounter Visit Diagnoses Not on filedocumented in this encounter
--- OUTSIDE RECORDS SUMMARY | 2024-10-29 00:29 | XMS_ITS | Encounter Summary ---
Author Organization [facility] Address [facility] [facility] [place] [address] Care Team Providers Care Preparation Department Supervisor Name Role Phone Unavailable Primary Care Provider Unavailabl e Reason for Visit * Auth/Cert Specialty Diagnoses / Procedures Referred By Contac t Referred To Contact Referral ID Status Reason Start Date Expiration Date Visits Re quested Visits Authorized [id number] 1 1 Encounter Details Date Type Department Care Team (Late st Contact Info) Description 03/04/2021 3:55 PM CDT Anesthesia Event [facility] [address] [place], [place] [id number] Trent Phillips MD [address] [place] [address] Sharifa Alvarado, EXEC. CREATIVE DIRECTOR-DIESEL DINKEY ENGINEER [address] [place] [address] Anesthesia Record Procedure Summary Procedure Name Responsible [...] 29 CM; Lumens: Single Lumen; Gauge: 3 British; Length of Cath(cm): 20 cm; Brand: BARD; Lot: [id number] exp 12/21; Tolerance: Moderate 03/01/21 1003 by [...] this encounter Progress Notes * Quincy Amin APRN-DIESEL DINKEY ENGINEER - 03/05/2021 11:01 AM CDT ANESTHESIA POSTOP [...] COMPLICATIONS: No complications documented. * Sharifa Alvarado APRN-DIESEL DINKEY ENGINEER - 03/04/2021 3:48 PM CDT ANESTHESIA PREOPERATIVE [...] this encounter Procedure Notes * Sharifa Alvarado, EXEC. CREATIVE DIRECTOR-DIESEL DINKEY ENGINEER - 03/04/2021 4:08 PM CDTAssociated Order(s): Neuraxial [...] ??2 Staff: ?? Anesthesia Provider: ??Sharifa Alvarado, TOSHIA-DIESEL DINKEY ENGINEER ?? - ?? performed the procedure Trent [...]
--- OUTSIDE RECORDS SUMMARY | 2024-10-29 00:29 | XMS_ITS | Encounter Summary ---
Author Organization [facility] Address [address] [facility] [place] [address] Care Team Providers Care Flatware Maker Name Role Phone Unavailable Primary Care Provider Unavailabl e Reason for Visit * Reason Onset Date Comments Results 10/14/2020 Encounter Details Date Type Department Care Team (Late st Contact Info) Description 10/14/2020 Telephone [facility] Maternal & Care [address] [place] [address] Yasmine Schaffer RN Results Social History Tobacco [...] will be sent to patient's primary OB PER MACHINE OPERATOR documented in this encounter Plan of Treatment Not on file documented as of this encounter Visit Diagnoses Diagnosis Fifth (HCC) state, incidental Encounter for ultrasound (HCC) Encounter for routine screening for malformation using ultrasonics Hx of section Other postprocedural status Herpes Herpes simplex without mention of complication documented in this encounter
--- OUTSIDE RECORDS SUMMARY | 2024-10-29 00:30 | XMS_ITS | Continuity of Care Document ---
Author Organization [facility] Address [address] [employer] [facility] [place] [address] Phone Care Team Providers Care Card Mounter Name Role Phone Ugo Corona MD Unavailable Unavailable Advance Directives Directive Yes / No Effective Date File Name No Information Encounters Encounter Description Practice Location Reason(s) For Visit Diagnoses Date Provider Providers Copied on Encounter [facility], [address] [place] [address] [facility] [place], [facility], tel:[phone] [facility] No Information Cj Arizmendi. [address], [place], [place], [facility]. tel:[phone] Family History Family Member Type Diagnosis Age [...]
--- OUTSIDE RECORDS SUMMARY | 2024-10-29 00:30 | XMS_ITS | Encounter Summary ---
Author Organization [facility] Healthcare Address [address] [place] [address] Care Team Providers Care Pathology Technician Name Role Phone No, Physician Primary Care Provider [phone] Reason for Visit * Reason Onset Date Comments No show Ret OB appointment 08/31/2023 Encounter Details Date Type Department Care Team (Late st Contact Info) Description 08/31/2023 Telephone [facility] [address] [place] [phone] Margareth Herrera, DO [address] [place] [address] No show Ret OB appointment Social History [...] often do you attend chur ch or orthodoxy services? More than 4 times per year 09/01/2023 Do you belong to any clubs o r organizations such as judaism groups, unions, fraternal or athletic groups, or [...] should administer the PHQ-9) 0 09/01/2023 [facility] of Occupat ional [facility] - Occupational Stress Questionnaire Answer [...] on filedocumented in this encounter Care Teams Pathology Technician Relationship Specialty Start Date End Date No, Physician PCP - General 03/09/23 documented as of this encounter
--- OUTSIDE RECORDS SUMMARY | 2024-10-29 00:30 | XMS_ITS | Encounter Summary ---
Author Organization [facility] Healthcare Address [address] [place] [address] Care Team Providers Care Fish Icer Name Role Phone No, Physician Primary Care Provider [phone] Reason for Visit * Reason Comments Contractions Encounter Details Date Type Department Care Team (Late st Contact Info) Description 09/02/2023 11:18 AM CDT - 09/02/2023 12:58 PM CDT Hospital Encounter [facility] [address] [place] [address] Margareth Herrera, DO [address] [address] Discharge Disposition: Discharge to home or self [...] often do you attend chur ch or tenriism services? More than 4 times per year [...] staff should administer the PHQ-9) 0 09/01/2023 [facility] of Occupat ional [facility] - Occupational Stress Questionnaire Answer [...] slept in a long-term (including now)? No 09/01/2023 Comments Yes Sex [...] - 09/02/2023 12:53 PM CDT Return to [facility] Monday09/04/23 at 0600 for induction of labor. * Attachments The following attachments cannot be sent through Care Everywhere. * at 35 to 38 Weeks (Discharge Care) (Albanian) documented in this encounter Medications at Time [...] which was unchanged from previous SVE at [place] of /-2. This RN took over pt [...] LAB URINE ORDERABLES Fi nal Result [facility] ([facility]) [address] [facility] [place] [address] * (ABNORMAL) Urinalysis reflex to microscopic and [...] tendency for uric acid stone formation. Source: [facility] Roundrate Current Interpretive Data was last revised on [...] GENE RAL ORDERABLES Final Result [facility] ([employer]) 1 [facility] [place] [address] documented in this encounter Visit Diagnoses Not on filedocumented in this encounter Orders Discharge Count Last Ordered Date First Orde red Date DISCHARGE PATIENT 1 09/02/2023 documented in this encounter Care Teams Fish Icer Relationship Specialty Start Date End Date No, Physician PCP - General 03/09/23 documented as of this encounter
--- OUTSIDE RECORDS SUMMARY | 2024-10-29 00:30 | XMS_ITS | Encounter Summary ---
Author Organization [facility] Healthcare Address [address] [place] [address] Care Team Providers Care Director Service Name Role Phone No, Physician Primary Care Provider [phone] Reason for Visit * Reason Comments Contractions Encounter Details Date Type Department Care Team (Late st Contact Info) Description 09/01/2023 2:06 AM CDT - 09/01/2023 4:40 AM CDT Hospital Encounter [facility] Child[facility] [address] [place] [address] Margareth Herrera, DO [address] [place] [address] Discharge Disposition: Discharge to home or self [...] any clubs o r organizations such as sabianist groups, unions, fraternal or athletic groups, or [...] staff should administer the PHQ-9) 0 09/01/2023 [facility] of Occupat ional [facility] [...] in a chcf (including now)? No 09/01/2023 Comments Yes Sex [...] Everywhere. * Early Labor Signs (Discharge Care) (Bahraini) documented in this encounter Medications at Time [...] with complaints of contractions. Pt just left [facility] L[facility], upon arrival SVE is /-2, UA [...] Final Re sult [facility] ([facility]) 1 [facility] Department [place] [address] * (ABNORMAL) Urinalysis reflex to microscopic and culture Urine, clean voided (09/01/2023 2:28 AM CDT) Color, ur Yellow Yellow [facility] ([facility]) Clarity, ur Clear Clear [facility] ([place]) Specific gravity, ur 1.020 1.003 - 1.030 [...] acid stone formation. Source: [facility] [employer] Current Interpretive Data was last revised on [...] DERABLES Final Result [facility] ([facility]) 1 [facility] Department [place] [address] documented in this encounter Visit Diagnoses Not [...] 09/01/2023 documented in this encounter Care Teams Director Service Relationship Specialty Start Date End Date No, Physician PCP - General 03/09/23 documented as of this encounter
--- OUTSIDE RECORDS SUMMARY | 2024-10-29 00:30 | XMS_ITS | Encounter Summary ---
Author Organization [facility] Healthcare Address [address] [place] [address] Care Team Providers Care School Curriculum Developer Name Role Phone No, Physician Primary Care Provider [phone] Margareth Herrerabeth DO Unavailable [phone] Reason for Visit * Auth/Cert (Routine) Specialty Diagnoses / Procedures Referred By Lenora t Referred To Contact Diagnoses Request for sterilization Request for sterilization [Z30.2] Procedures AR LIG/TRNSXJ FLP TUBE ABDL/VAG SPX SALPINGECTOMY Referral ID Status Reason Start Date Expiration Date Visits Re quested Visits Authorized [id number] 1 1 Encounter Details Date Type Department Care Team (Late st Contact Info) Description 09/05/2023 7:47 AM NURSING HOME DIRECTOR Anesthesia Event [facility] Operating Room [address] [place] [address] [place] [address] [facility] [place] [address] [place] [address] [id number] Anesthesia Record Procedure Summary Procedure Name Responsible [...] Bilateral; Abdomen; 10/01/24 (Retired LDA, Removed/Completed by [facility] with LDA Utility); 1213 (Retired LDA, Removed/Completed by [facility] with LDA Utility) 09/05/23 0828 [...] How often do you attend chur or mormonism services? More than 4 times per year 09/01/2023 Do you belong to any clubs o r organizations such as worship groups, unions, fraternal or athletic groups, or [...] staff should administer the PHQ-9) 0 09/01/2023 [facility] of Occupat ional Health - Occupational Stress [...] a long term (including now)? No 09/01/2023 Personal Safety Answer [...] Procedure Summary Date: 09/05/23 Room / Location: [facility] OR [address] [place] [address] OPERATING ROOM Anesthesia Start: 746 Anesthesia Stop: [...] Nausea/Vomiting status: none No notable events documented. ING HOME DIRECTOR * Anesthesia Procedure Notes - Larry Parsons CRNA - 09/05/2023 8:00 AM NURSING HOME DIRECTOR Associated Order(s): Airway Airway Patient location: OR Urgency: elective Indications for airway management: anesthesia Difficult airway: no Staff: Placed by: CONCESSION MANAGER: Larry Parsons CRNA Emergent airway documentation: Risks [...] with: silk tape Number of attempts: 1 ING HOME DIRECTOR * Anesthesia Preprocedure Evaluation - Elisa Betancur MD - 09/05/2023 6:59 AM NURSING HOME DIRECTOR Images from the original note were not included. Anesthesia Evaluation Hannah Luis is a 28 y.o. female Procedure(s): SALPINGECTOMY Pre-Op Diagnosis Codes: * Request for sterilization [Z30.2] HISTORY Past Medical History Information obtained from: patient and chart. Neurological + Psychiatric history - anxiety Pertinent negatives: seizures and CVA/stroke Cardiovascular Pertinent negatives: hypertension ; IN ; pacemaker/ICD and negative for CHF Respiratory [...] Medication protocol when under care of a CONCESSION MANAGER Planned anesthesia: General Comments: Low dose prop gtt intra-op for PONV Induction: Induction: intravenous. Postoperative Plan: No postoperative mechanical ventilation intended. Informed Consent: Discussed plan with CONCESSION MANAGER. Anesthesia plan and risks discussed with patient. Consent and Attending signature: I and/or my designee have discussed the anesthesia plan, benefits, possible alternatives, parental presence at time of induction (if indicated), and clinically relevant risks that may include dental injury, unintentional awareness, and/or other complications. The patient and/or parent/legal guardian understand, and agree to proceed. All questions answered. ING HOME DIRECTOR ING HOME DIRECTOR documented in this encounter Plan of Treatment Not on file documented as of this encounter Procedures Procedure Name Priority Date/Time Associated Diagnosis Comments AR AN ELECTIVE ENDOTRACHEAL AIRWAY Routine 09/05/2023 8:00 AM NURSING HOME DIRECTOR documented in this encounter Results * AR AN ELECTIVE ENDOTRACHEAL AIRWAY (09/05/2023 8:00 AM NURSING HOME DIRECTOR) Narrative Larry Parsons CRNA - 09/05/2023 8:00 AM NURSING HOME DIRECTOR Larry Parsons CRNA ? 09/05/2023 ??8:00 AM Airway Patient location: OR Urgency: elective Indications for airway management: anesthesia Difficult airway: no Staff: Placed by: CONCESSION MANAGER: Larry Parsons CRNA Emergent airway documentation: Risks [...] 0757, Anesthesia Intra-op Given 09/05/2023 7:57 AM NURSING HOME DIRECTOR 2,000 mg dexAMETHasone (DECADRON) injection solution intravenous, Administer over 2 Minutes, As needed, Starting on Mon09/05/23 at 0755, Anesthesia Intra-op Given 09/05/2023 7:55 AM NURSING HOME DIRECTOR 10 mg dexmedeTOMIDine in 0.9% sodium chloride (PRECEDEX) 200 mcg/50 mL (4 mcg/mL) infusion (premix) intravenous, As needed, Starting on Mon09/05/23 at 0809, Anesthesia Intra-op Given 09/05/2023 8:17 AM NURSING HOME DIRECTOR 4 mcg Given 09/05/2023 8:12 AM NURSING HOME DIRECTOR 4 mcg Given 09/05/2023 8:09 AM NURSING HOME DIRECTOR 4 mcg diphenhydrAMINE (BENADRYL) 50 mg/mL injection intravenous, Administer over 2 Minutes, As needed, Starting on Mon09/05/23 at 0755, Anesthesia Intra-op Given 09/05/2023 7:55 AM NURSING HOME DIRECTOR 25 mg esmoloL (BREVIBLOC) injection intravenous, Administer over 1 Minutes, As needed, Starting on Mon09/05/23 at 0751, Anesthesia Intra-op Given 09/05/2023 7:51 AM NURSING HOME DIRECTOR 50 mg fentaNYL (SUBLIMAZE) preservative free injection intravenous, As needed, Starting on Mon09/05/23 at 0807, Anesthesia Intra-op Given 09/05/2023 8:53 AM NURSING HOME DIRECTOR 50 mcg Given 09/05/2023 8:07 AM NURSING HOME DIRECTOR 50 mcg ketamine (KETALAR) 50 mg/5 mL (10 mg/mL) in sodium chloride 0.9% (premix) intravenous, As needed, Starting on Mon09/05/23 at 0802, Anesthesia Intra-op Given 09/05/2023 8:02 AM NURSING HOME DIRECTOR 30 mg ketorolac (TORADOL) 30 mg/mL (1 mL) injection intravenous, As needed, Starting on Mon09/05/23 at 0755, Anesthesia Intra-op Given 09/05/2023 7:55 AM NURSING HOME DIRECTOR 30 mg Lactated Ringer's (LR) infusion 30 mL/hr, intravenous, Continuous, Starting on Mon09/05/23 at 0645, Pre-Op New Bag 09/05/2023 7:46 AM NURSING HOME DIRECTOR lidocaine (XYLOCAINE) 20 mg/mL (2 %) preservative free injection intravenous, As needed, Starting on Mon09/05/23 at 0750, Anesthesia Intra-op Given 09/05/2023 7:50 AM NURSING HOME DIRECTOR 100 mg midazolam (VERSED) 1 mg/mL preservative free injection intravenous, Administer over 2 Minutes, As needed, Starting on Mon09/05/23 at 0746, Anesthesia Intra-op Given 09/05/2023 7:46 AM NURSING HOME DIRECTOR 2 mg ondansetron (ZOFRAN) injection intravenous, Administer over 2 Minutes, As needed, Starting on Mon09/05/23 at 0806, Anesthesia Intra-op Given 09/05/2023 8:06 AM NURSING HOME DIRECTOR 4 mg propofoL (DIPRIVAN) 10 mg/mL IV intravenous, As needed, Starting on Mon09/05/23 at 0751, Anesthesia Intra-op Given 09/05/2023 8:38 AM NURSING HOME DIRECTOR 20 mg Given 09/05/2023 8:34 AM NURSING HOME DIRECTOR 20 mg Given 09/05/2023 8:30 AM NURSING HOME DIRECTOR 20 mg rocuronium (ZEMURON) injection intravenous, As needed, Starting on Mon09/05/23 at 0803, Anesthesia Intra-op Given 09/05/2023 8:03 AM NURSING HOME DIRECTOR 30 mg succinylcholine (ANECTINE) injection intravenous, As needed, Starting on Mon09/05/23 at 0751, Anesthesia Intra-op Given 09/05/2023 7:51 AM NURSING HOME DIRECTOR 160 mg sugammadex (BRIDION) 100 mg/mL intravenous solution intravenous, As needed, Starting on Mon09/05/23 at 0841, Anesthesia Intra-op Given 09/05/2023 8:41 AM NURSING HOME DIRECTOR 200 mg documented in this encounter Care Teams School Curriculum Developer Relationship Specialty Start Date End Date No, Physician PCP - General 03/09/23 Margareth Herrera DO [address] [place], [place] [address] Consulting Physician Obstetrics and Gynecology 09/05/23 documented as of this encounter
--- OUTSIDE RECORDS SUMMARY | 2024-10-29 00:30 | XMS_ITS | Encounter Summary ---
Author Organization [facility] Healthcare Address [address] [place] [address] Care Team Providers Care Finishing Lab Technician Name Role Phone No, Physician Primary Care Provider [phone] Margareth Herrera DO Unavailable [phone] Reason for Visit * Auth/Cert (Routine) Specialty Diagnoses / Procedures Referred By Lenora t Referred To Contact Diagnoses Request for sterilization Request for sterilization [Z30.2] Procedures HI LIG/TRNSXJ FLP TUBE ABDL/VAG SPX SALPINGECTOMY Referral ID Status Reason Start Date Expiration Date Visits Re quested Visits Authorized [id number] 1 1 Encounter Details Date Type Department Care Team (Late st Contact Info) Description 09/05/2023 6:01 AM SERVICE DIRECTOR - 09/05/2023 10:43 AM SERVICE DIRECTOR Hospital Encounter [facility] Operating Room [address] [place] [address] Margareth Herrera DO [address] [place] [address] Request for sterilization Discharge Disposition: Discharge to [...] often do you attend chur ch or yazdanism services? More than 4 times per year 09/01/2023 Do you belong to any clubs o r organizations such as jehovah's witness groups, unions, fraternal or athletic groups, or [...] PHQ-9) 0 09/01/2023 [facility] alexander campusal [facility] - Occupational Stress Questionnaire Answer Date Recorded [...] Comments Blood Pressure 118/73 09/05/2023 10:07 AM SERVICE DIRECTOR Pulse 62 09/05/2023 10:07 AM SERVICE DIRECTOR Temperature 36.2 ??C (97.1 ??F) 09/05/2023 10:[address] Respiratory Rate 18 09/05/2023 10:07 AM SERVICE DIRECTOR Oxygen Saturation 99% 09/05/2023 10:07 AM SERVICE DIRECTOR Inhaled Oxygen Concentration - - Weight 75.8 kg (167 lb 1.7 oz) 09/05/2023 6:20 A M SERVICE DIRECTOR Height 165.1 cm (5' 5 ) 09/05/2023 6:20 AM SERVICE DIRECTOR Body Mass Index 27.81 09/05/2023 6:20 AM SERVICE DIRECTOR documented in this encounter Discharge Instructions * Attachments The following attachments cannot be sent through Care Everywhere. * General Anesthesia (Discharge Care) (Monegasque) documented in this encounter Medications at Time [...] She was originally scheduled for induction at [facility] yesterday with a plan for PP BS today but ended up delivering [facility] Monday night. Delivery was uncomplicated. She [...] and even . Margareth Herrera DO 09/05/23 ICE DIRECTOR documented in this encounter Miscellaneous Notes * Perioperative Nursing Note - Sherita Conley RN - 09/05/2023 10:08 AM SERVICE DIRECTOR Pt ambulatory with no difficulty to the restroom, was able to void prior to discharge, small amountof drainage seen on elena pad. ICE DIRECTOR * Perioperative Nursing Note - Sherita Conley RN - 09/05/2023 9:38 AM SERVICE DIRECTOR Pt having pain of 05/08, Dr. Herrera made aware, order for percocet placed. ICE DIRECTOR * Op Note - Margareth Herrera [...] She was originally scheduled for induction at [facility] yesterday with a plan for PP BS today but ended up delivering at [facility] Monday night. Delivery was uncomplicated. She SROM'd [...] tubes Tissue Fallopian tube, sterilization SURGICAL PATHOLOGY Margarteh Herrera DO 09/05/2023 0803 Complications: None Sponge/Instrument/Needle Counts: The sponge, lap and needle counts were correct x 2. Condition on Discharge from the operating room was stable Margareth Herrera DO Date: 09/05/2023 Time: 8:36 AM The Attending, Margareth Herrera DO, was present for the entire procedure. ICE DIRECTOR * Pre-Procedure Instructions - Ashli De Dios RN - 09/04/2023 2:19 PM SERVICE DIRECTOR We are pleased that you and your doctor have chosen [facility] for your surgery. We hope [...] morning of surgery Use no make-up, nail belarusian, lotions, oils or powders on your skin. [...] posted at the top of the page. ICE DIRECTOR documented in this encounter Plan of Treatment Not on file documented as of this encounter Procedures Procedure Name Priority Date/Time Associated Diagnosis Comments SURGICAL PATHOLOGY Routine 09/05/2023 9: 49 AM SERVICE DIRECTOR Request for sterilization SALPINGECTOMY 09/05/2023 7:46 AM SERVICE DIRECTOR Request for sterilization DIFFERENTIAL AUTO STAT 09/05/2023 6:3 9 AM SERVICE DIRECTOR CBC WITH AUTO DIFFERENTIAL STAT 09/05/2023 6:39 AM SERVICE DIRECTOR documented in this encounter Results * Surgical pathology (09/05/2023 9:49 AM SERVICE DIRECTOR) Tissue (Fallopian tube, sterilization) 09/05/2023 8:03 AM SERVICE DIRECTOR Narrative [facility]Y [facility]) - 09/06/2023 10:35 AM SERVICE DIRECTOR EPIC results best viewed via link to PDF [facility] Department of Pathology [address] [place], [place] [id number] Note to Patients: This report may contain [...] Address: ??[facility] [address], ??[place], [place] ?? Gender: ??F : ??1995 (Age: 28) Service: ??Surgery Location: ??[facility] Hospital #: ??[id number] Patient Type: ??[facility] Accession # [id number] Taken: ??09/05/2023 Received: ??09/05/2023 Accessioned: ??09/05/2023 Reported: [...] determined by the Surgical Pathology Department at [facility] as part of an ongoing senior quality assurance specialist program and in compliance with federally [...] characteristics determined by the Surgical Pathology Department [facility]. ??It has not been cleared or approved by the U. S. Food and Drug Administration. Note for decalcified specimens: This assay has not been validated on decalcified tissues. Results should be interpreted with caution given the possibility of false negativity on decalcified specimens Margareth Herrera DO LAB PATHOLOGY ORDERABLE S Final Result PATHOLOGY [facility] ([facility]) 1 [place] [address] * Differential, auto (09/05/2023 6:39 AM SERVICE DIRECTOR) Neutrophil abs 4.4 1.7 - 6.5 [...] revised on 2018. Blood 09/05/2023 6:39 AM SERVICE DIRECTOR 09/05/2023 6:43 AM SERVICE DIRECTOR us Margareth Herrera DO LAB BLOOD ORDERABLES Fi nal Result [facility] ([facility]) 1 [facility] Department [place] [address] * (ABNORMAL) CBC with auto differential (09/05/2023 6:39 AM SERVICE DIRECTOR) WBC 7.6 3.8 - 9.9 K/cumm [...] 31.9(L) 32.3 - 35.7 g/dL [facility] ([facility]) RDW CV 13.7 11.1 - 14.9 % [facility]) RDW SD 40.2 35.7 - 48.1 fL [facility]) NRBC abs 0.00 0.00 - 0.01 K/cumm [facility]) Blood 09/05/2023 6:39 AM SERVICE DIRECTOR 09/05/2023 6:43 AM SERVICE DIRECTOR us Margareth Herrera DO LAB BLOOD ORDERABLES Fi nal Result [facility] ([facility]) 1 [facility] Department [place] [address] documented in this encounter Visit Diagnoses Diagnosis [...] more., Indications: PainIndications:Pain Given 09/05/2023 9:21 AM SERVICE DIRECTOR 50 mcg Given 09/05/2023 9:09 AM SERVICE DIRECTOR 50 mcg Lactated Ringer's (LR) infusion 30 mL/hr, intravenous, Continuous, Starting on Mon09/05/23 at 0645, Pre-Op New Bag 09/05/2023 7:46 AM SERVICE DIRECTOR oxyCODONE-acetaminophen (PERCOCET) 5-325 mg per tablet 1 tablet 1 tablet, oral, Once, On Mon09/05/23 at 1015, For 1 dose, Indications: PainIndications:Pain Given 09/05/2023 9:52 AM SERVICE DIRECTOR 1 tablet documented in this encounter [...] may contain times in both CDT and SERVICE DIRECTOR. Scheduled Medication Order 09/03/2023 09/04/2023 09/05/2023 [...] 0838 (Given - Provid er: Hannah Savage, PATIENT ADMITTING REPRESENTATIVE) fentaNYL (SUBLIMAZE) preservative free injection 50 [...] 09/05/2023 documented in this encounter Care Teams Finishing Lab Technician Relationship Specialty Start Date End Date No, Physician PCP - General 03/09/23 Margareth Herrera DO [address] [place] [address] Consulting Physician Obstetrics and Gynecology 09/05/23 documented as of this encounter
--- OUTSIDE RECORDS SUMMARY | 2024-10-29 00:30 | XMS_ITS | Encounter Summary ---
Author Organization [facility] Healthcare Address [address] [place] [address] Care Team Providers Care Pound Keeper Name Role Phone No, Physician Primary Care Provider [phone] Margareth Herrera DO Unavailable [phone] Reason for Visit * Auth/Cert (Routine) Specialty Diagnoses / Procedures Referred By Lenora t Referred To Contact Diagnoses Request for sterilization Request for sterilization [Z30.2] Procedures OR LIG/TRNSXJ FLP TUBE ABDL/VAG SPX SALPINGECTOMY Referral ID Status Reason Start Date Expiration Date Visits Re quested Visits Authorized [id number] 1 1 Encounter Details Date Type Department Care Team (Late st Contact Info) Description 09/05/2023 7:30 AM PALLETISER OPERATOR - 09/05/2023 8:45 AM PALLETISER OPERATOR Surgery [facility] Operating Room [address] [place] [id number] Margareth Herrera DO [address] [address] SALPINGECTOMY Surgery Details Date/Time Status Location OR [...] How often do you attend chur or lutheran services? More than 4 times per year 09/01/2023 Do you belong to any clubs o r organizations such as mormonism groups, unions, fraternal or athletic groups, or [...] staff should administer the PHQ-9) 0 09/01/[facility]23 [facility] Occupational Stress Questionnaire Answer Date [...] Comments Blood Pressure 136/70 09/05/2023 6:20 AM PALLETISER OPERATOR Pulse 66 09/05/2023 6:20 AM PALLETISER OPERATOR Temperature 36.2 ??C (97.1 ??F) 09/05/2023 6:20 AM CS T Respiratory Rate 18 09/05/2023 6:20 AM PALLETISER OPERATOR Oxygen Saturation 98% 09/05/2023 6:20 AM PALLETISER OPERATOR Inhaled Oxygen Concentration - - Weight 75.8 kg (167 lb 1.7 oz) 09/05/2023 6:20 A M PALLETISER OPERATOR Height 165.1 cm (5' 5 ) 09/05/2023 6:20 AM PALLETISER OPERATOR Body Mass Index 27.81 09/05/2023 6:20 AM PALLETISER OPERATOR documented in this encounter Discharge Instructions * Attachments The following attachments cannot be sent through Care Everywhere. * General Anesthesia (Discharge Care) (Mohawk) documented in this encounter Medications at Time [...] She was [facility] with a plan for PP BS today but ended up delivering [facility] Monday night. Delivery was uncomplicated. [...] and even . Margareth Herrera DO 09/05/23 ETISER OPERATOR documented in this encounter Miscellaneous Notes * Perioperative Nursing Note - Sherita Conley RN - 09/05/2023 10:08 AM PALLETISER OPERATOR Pt ambulatory with no difficulty to the restroom, was able to void prior to discharge, small amountof drainage seen on elena pad. ETISER OPERATOR * Perioperative Nursing Note - Sherita Conley RN - 09/05/2023 9:38 AM PALLETISER OPERATOR Pt having pain of 05/08, Dr. Herrera made aware, order for percocet placed. ETISER OPERATOR * Op Note - Margareth Herrera [...] She was originally scheduled for induction [facility] yesterday with a plan for PP BS today but ended up delivering at [facility] Monday night. Delivery was uncomplicated. She SROM'd [...] DO, was present for the entire procedure. ETISER OPERATOR * Pre-Procedure Instructions - Ashli De Dios RN - 09/04/2023 2:19 PM PALLETISER OPERATOR We are pleased that you and your doctor have chosen [facility] for your surgery. We hope [...] morning of surgery Use no make-up, nail barbadian, lotions, oils or powders on your skin. [...] posted at the top of the page. ETISER OPERATOR documented in this encounter Plan of Treatment Not on file documented as of this encounter Procedures Procedure Name Priority Date/Time Associated Diagnosis Comments SURGICAL PATHOLOGY Routine 09/05/2023 9: 49 AM PALLETISER OPERATOR Request for sterilization SALPINGECTOMY 09/05/2023 7:46 AM PALLETISER OPERATOR Request for sterilization DIFFERENTIAL AUTO STAT 09/05/2023 6:3 9 AM PALLETISER OPERATOR CBC WITH AUTO DIFFERENTIAL STAT 09/05/2023 6:39 AM PALLETISER OPERATOR documented in this encounter Results * Surgical pathology (09/05/2023 9:49 AM PALLETISER OPERATOR) Tissue (Fallopian tube, sterilization) 09/05/2023 8:03 AM PALLETISER OPERATOR Narrative [facility]OLOGY [facility] ([facility]) - 09/06/2023 10:35 AM PALLETISER OPERATOR EPIC results best viewed via link to PDF [facility] Department of Pathology [address] [place] [address] Note to Patients: This report may contain [...] Final Report Patient Name: ??HANNAH PYLE Address: ??[facility] [address], ??[place], [place] ?? Gender: ??F : ??1995 (Age: 28) Service: ??Surgery Location: ??[facility] Hospital #: ??[id number] [facility]: [facility] IP Accession # [id number] Taken: ??09/05/2023 Received: ??09/05/2023 Accessioned: ??09/05/2023 Reported: [...] determined by the Surgical Pathology Department at [facility] as part of an ongoing bottle house quality control technician program and in compliance [...] characteristics determined by the Surgical Pathology Department [facility]. ??It has not been cleared or approved by the U. S. Food and Drug Administration. Note for decalcified specimens: This assay has not been validated on decalcified tissues. Results should be interpreted with caution given the possibility of false negativity on decalcified specimens Margareth Herrera DO LAB PATHOLOGY ORDERABLE S Final Result [facility] 1 [place], [place] [id number] * Differential, auto (09/05/2023 6:39 AM PALLETISER OPERATOR) Neutrophil abs 4.4 1.7 - 6.5 K/cumm [facility] ([facility]) Imm gran abs 0.0 0.0 - 0.1 [...] revised on 2018. Blood 09/05/2023 6:39 AM PALLETISER OPERATOR 09/05/2023 6:43 AM PALLETISER OPERATOR Margareth Herrera DO LAB BLOOD ORDERABLES Fi nal Result [facility] ([facility]) 1 [facility] Department [place] [address] * (ABNORMAL) CBC with auto differential (09/05/2023 6:39 AM PALLETISER OPERATOR) WBC 7.6 3.8 - 9.9 K/cumm [...] [facility] ([facility]) Blood 09/05/2023 6:39 AM PALLETISER OPERATOR 09/05/2023 6:43 AM PALLETISER OPERATOR Margareth Herrera DO LAB BLOOD ORDERABLES Fi nal Result [facility]) 1 [facility] Department [place] [address] documented in this encounter Visit Diagnoses Diagnosis [...] at 0829, Intra-Op Given 09/05/2023 8:38 AM PALLETISER OPERATOR 10 mL Surgical Site fentaNYL (SUBLIMAZE) preservative free injection 50 mcg 50 mcg, intravenous, Every 10 min PRN, 1st line for pain, Starting on Mon09/05/23 at 0906, Phase I, Notify Anesthesiologist if total PACU dose reaches 100 mcg and pain score 5/10 or more., Indications: PainIndications:Pain Given 09/05/2023 9:21 AM PALLETISER OPERATOR 50 mcg Given 09/05/2023 9:09 AM PALLETISER OPERATOR 50 mcg Lactated Ringer's (LR) infusion 30 mL/hr, intravenous, Continuous, Starting on Mon09/05/23 at 0645, Pre-Op New Bag 09/05/2023 7:46 AM PALLETISER OPERATOR oxyCODONE-acetaminophen (PERCOCET) 5-325 mg per tablet 1 tablet 1 tablet, oral, Once, On Mon09/05/23 at 1015, For 1 dose, Indications: PainIndications:Pain Given 09/05/2023 9:52 AM PALLETISER OPERATOR 1 tablet sodium chloride 0.9% irrigation As needed, Starting on Mon09/05/23 at 0820, Intra-Op Given 09/05/2023 8:20 AM PALLETISER OPERATOR 1,000 mL Surgical Site documented in this [...] may contain times in both CDT and PALLETISER OPERATOR. Scheduled Medication Order 09/03/2023 09/04/2023 09/05/2023 [...] 09/05/2023 documented in this encounter Care Teams Pound Keeper Relationship Specialty Start Date End Date No, Physician PCP - General 03/09/23 Margareth Herrera DO [address] [place] [address] Consulting Physician Obstetrics and Gynecology 09/05/23 documented as of this encounter
--- OUTSIDE RECORDS SUMMARY | 2024-10-29 00:30 | XMS_ITS | Referral Summary ---
Author Organization [facility] [address] Address [address] [place] [address] Phone Care Team Providers Care Advanced Manufacturing Engineer Name Role Phone No, Physician Primary Care Provider [phone] Margareth Herrera DO Unavailable [phone] Allergies Active Allergy Reactions Criticality Noted Date [...] was counseled on the limitations of our [facility] and that can not guarantee the marketing information analyst OB will offer a TOLAC if she [...] often do you attend chur ch or temple services? More than 4 times per year [...] 0 09/01/2023 [facility] - [...] Comments Blood Pressure 118/73 09/05/2023 10:07 AM ACCOUNTS PAYABLES CLERK Pulse 62 09/05/2023 10:07 AM ACCOUNTS PAYABLES CLERK Temperature 36.2 ??C (97.1 ??F) 09/05/2023 10:[address] Respiratory Rate 18 09/05/2023 10:07 AM ACCOUNTS PAYABLES CLERK Oxygen Saturation 99% 09/05/2023 10:07 AM ACCOUNTS PAYABLES CLERK Inhaled Oxygen Concentration - - Weight 75.8 kg (167 lb 1.7 oz) 09/05/2023 6:20 A M ACCOUNTS PAYABLES CLERK Height 165.1 cm (5' 5 ) 09/05/2023 6:20 AM ACCOUNTS PAYABLES CLERK Body Mass Index 27.81 09/05/2023 6:20 AM ACCOUNTS PAYABLES CLERK Plan of Treatment Not on file Procedures [...] RAL ORDERABLES Edited Result - Final [facility] [address] [place] [address] * Pap with reflex to High Risk HPV (03/23/2023 8:02 AM CDT) Thin prep (Pap test) 03/23/2023 8:02 AM CDT 03/23/2023 8:02 AM CDT Narrative PATHOLOGY - 03/28/2023 1:21 PM CDT [facility] Department of Pathology [address] [place], [place] [id number] Final Report Note to Patients: This report [...] ??HANNAH PYLE Address: ??[address], ?? [place], [place] [address] Gender: ??F : ??1995 (Age: 27) Service: ?? Location: ?? Hospital #: ??[id number] Patient Type: ?? SPECIMEN Taken: ??03/23/2023 Received: ??03/23/2023 Accessioned:: ??03/24/2023 Reported: ??03/28/2023 Physician(s): Nessa Mcgee D.O. Diagnosis: SOURCE OF SPECIMEN ? Imaged Thinprep Pap Test w/ Reflex HPV - Polymer Engineer Cytologic Material: STATEMENT OF ADEQUACY ?- Specimen satisfactory for interpretation; endocervical/transformation zone component absent or ?insufficient ? GENERAL CATEGORIZATION: ?- Negative for intraepithelial lesion or malignancy ? INTERPRETATION: ?- Numerous inflammatory cells present ? DISHA Faulkner(ASCP) Report Electronically Reviewed and Signed Out By ??DISHA Faulkner(ASCP) ??03/28/2023 13:21:27Specimen(s) Received: A: Imaged Thinprep Pap Test w/ Reflex HPV - Polymer Engineer Cytologic Material Clinical History: Last Menstrual Period: [...] determined by the Surgical Pathology Department at [facility] as part of an ongoing director quality assurance program and in compliance with federally mandated [...] characteristics determined by the Surgical Pathology Department [facility]. ??It has not been cleared or approved by the U. S. Food and Drug Administration. Margareth Herrera DO LAB CYTOLOGY ORDERABLES Final Result Performing Organization Address City/State/ZIP Co mo Phone Number PATHOLOGY [address] [place] [address] from Last 3 Months or Most Recently Relevant to Health Maintenance Insurance AETNA BETTER [facility] AETNA BETTER [facility] AETNA BETTER [facility] Care Teams Advanced Manufacturing Engineer Relationship Specialty Start Date End Date No, Physician PCP - General 03/09/23 Margareth Herrera DO [address] [place] [address] Consulting Physician Obstetrics and Gynecology 09/05/23
--- OUTSIDE RECORDS SUMMARY | 2024-10-29 00:30 | XMS_ITS | Clinical Summary ---
Author Organization [facility] [address] Address [address] [place] [address] Phone Care Team Providers Care Bean Picker Name Role Phone No, Physician Primary Care Provider [phone] Margareth Herrera DO Unavailable [phone] Allergies Active Allergy Reactions Criticality Noted Date [...] was counseled on the limitations of our [facility] and that can not guarantee the exceptional children teacher OB will offer a TOLAC if she [...] often do you attend chur ch or congregational services? More than 4 times per year 09/01/2023 Do you belong to any clubs o r organizations such as episcopal groups, unions, fraternal or athletic groups, or [...] 09/01/2023 [facility] - [...] BABY BOY NADIR daily MD Complications:None Delivery Location:[facility] ([facility] 5 R) Last Filed Vital Signs Vital Sign Reading Time Taken Comments Blood Pressure 118/73 09/05/2023 10:07 AM PATTERN HANGER Pulse 62 09/05/2023 10:07 AM PATTERN HANGER Temperature 36.2 ??C (97.1 ??F) 09/05/2023 10:[address] Respiratory Rate 18 09/05/2023 10:07 AM PATTERN HANGER Oxygen Saturation 99% 09/05/2023 10:07 AM PATTERN HANGER Inhaled Oxygen Concentration - - Weight 75.8 kg (167 lb 1.7 oz) 09/05/2023 6:20 A M PATTERN HANGER Height 165.1 cm (5' 5 ) 09/05/2023 6:20 AM PATTERN HANGER Body Mass Index 27.81 09/05/2023 6:20 AM PATTERN HANGER Plan of Treatment Health Maintenance Due Date [...] antibody (03/23/2023 11:20 AM CDT) Pathologist [facility] Hep C Ab Nonreactive Nonreactive [facility] ARM[facility]AR[facility] [...] RAL ORDERABLES Edited Result - Final [facility] [address] [facility] Department of Laboratories [place] [id number] * Pap with reflex to High Risk HPV (03/23/2023 8:02 AM CDT) Thin prep (Pap test) 03/23/2023 8:02 AM CDT 03/23/2023 8:02 AM CDT Narrative PATHOLOGY CH - 03/28/2023 1:21 PM CDT [facility] Department of Pathology [address] [place], [place] [id number] Final Report Note to Patients: This report [...] the details. Patient Name: ??HANNAH PYLE Address: ??[address] [place] [address], ?? [place], [place] [address] Gender: ??F : ??1995 (Age: 27) Service: ?? Location: ?? Hospital #: ??[id number] Patient Type: ?? SPECIMEN Taken: ??03/23/2023 Received: ??03/23/2023 Accessioned:: ??03/24/2023 Reported: ??03/28/2023 Physician(s): Margareth Herrera D.O. Margareth Herrera D.O. Diagnosis: SOURCE OF SPECIMEN ? Imaged Thinprep Pap Test w/ Reflex HPV - Machine Rebuilder Cytologic Material: STATEMENT OF ADEQUACY ?- Specimen satisfactory for interpretation; endocervical/transformation zone component absent or ?insufficient ? GENERAL CATEGORIZATION: ?- Negative for intraepithelial lesion or malignancy ? INTERPRETATION: ?- Numerous inflammatory cells present ? DISHA Faulkner(ASCP) Report Electronically Reviewed and Signed Out By ??DISHA Faulkner(ASCP) ??03/28/2023 13:21:27Specimen(s) Received: A: Imaged Thinprep Pap Test w/ Reflex HPV - Machine Rebuilder Cytologic Material Clinical History: Last Menstrual Period: [...] [facility] as part of an ongoing quality inspector program and in compliance with federally [...] characteristics determined by the Surgical Pathology Department [facility]. ??It has not been cleared or approved by the U. S. Food and Drug Administration. us Margareth Herrera DO LAB CYTOLOGY ORDERABLES Final Result PATHOLOGY [address] [place] [address] from Last 3 Months or Most Recently Relevant to Health Maintenance [place] Care Teams Bean Picker Relationship Specialty Start Date End Date No, Physician PCP - General 03/09/23 Margareth Herrera DO [address] [place] [address] Consulting Physician Obstetrics and Gynecology 09/05/23
--- OUTSIDE RECORDS SUMMARY | 2024-10-29 00:31 | XMS_ITS | Encounter Summary ---
Author Organization [facility] Address [address] [place] [address] Care Team Providers Care Sfdc Technical Architect Name Role Phone No, Physician Primary Care Provider [phone] Encounter Details Date Type Department Care Team (Late st Contact Info) Description 07/06/2023 Telephone [facility] [address] [place] [address] Elena Veliz LPN Social History [...] on filedocumented in this encounter Care Teams Sfdc Technical Architect Relationship Specialty Start Date End Date No, Physician PCP - General 03/09/23 documented as of this encounter
--- OUTSIDE RECORDS SUMMARY | 2024-10-29 00:31 | XMS_ITS | Encounter Summary ---
Author Organization [facility] Address [address] [place] [address] Care Team Providers Care Digital Media Representative Name Role Phone No, Physician Primary Care Provider [phone] Reason for Visit * Reason Comments Routine Visit Encounter Details Date Type Department Care Team (Late st Contact Info) Description 07/17/2023 9:50 AM CDT Office Visit [facility] [address] [place] [phone] Margareth Herrera, DO [address] [place] [address] Encounter for supervision of other normal in [...] slept in a jail (including now)? No 04/14/2023 Comments Yes Sex [...] AM CDT Pt doing well. Went to [place] last week for ctx and pelvic pressure [...] ur, POC Negative Negative Comment:n Lot Number [id number] Urine 07/17/2023 9:50 AM CDT us Margareth Herrera DO POINT OF CARE TEST YIMI CLEARYCAL Final Result documented in this encounter Visit Diagnoses Diagnosis Encounter for supervision of other normal in third trimester- Primary Request for sterilization documented in this encounter Care Teams Digital Media Representative Relationship Specialty Start Date End Date No, Physician PCP - General 03/09/23 documented as of this encounter
--- OUTSIDE RECORDS SUMMARY | 2024-10-29 00:31 | XMS_ITS | Encounter Summary ---
Author Organization [facility] Healthcare Address [address] [place] [address] Care Team Providers Care Product Marketer Name Role Phone No, Physician Primary Care Provider [phone] Encounter Details Date Type Department Care Team (Late st Contact Info) Description 08/29/2023 Telephone [facility] [address] [place] [address] Elena Veliz LPN Social History [...] How often do you attend chur or latter day services? More than 4 times per year 08/22/2023 Do you belong to any clubs o r organizations such as anabaptism groups, unions, fraternal or athletic groups, or [...] 0 08/22/2023 [facility] - Occupational Stress Questionnaire Answer Date [...] slept in a snf (including now)? No 08/22/2023 Comments Yes Sex [...] - 08/29/2023 1:15 PM CDT Normal GBS steam tender sent. * Telephone Encounter - Elena Veliz LPN - 08/29/2023 1:15 PM CDT ----- Message from Margareth Herrera DO sent at 08/29/2023 12:42 PM CDT ----- Please inform the patient her GBS was negative. documented in this encounter Plan of Treatment Not on file documented as of this encounter Visit Diagnoses Not on filedocumented in this encounter Care Teams Product Marketer Relationship Specialty Start Date End Date No, Physician PCP - General 03/09/23 documented as of this encounter
--- OUTSIDE RECORDS SUMMARY | 2024-10-29 00:31 | XMS_ITS | Encounter Summary ---
Author Organization [facility] Healthcare Address [address] [place] [address] Care Team Providers Care Splitting Machine Operator Name Role Phone No, Physician Primary Care Provider [phone] Reason for Referral * Diagnostic Imaging (Routine) - Closed Specialty Diagnoses / Procedures Referred By Contjasmyn t Referred To Contact Diagnoses Malposition of fetus, single or unspecified fetus Procedures US Ob Limited Margareth Herrera DO [address] [place] [address] Phone: tel: fax: [facility] Referral ID Status Reason Start Date Expiration Date Visits Re quested Visits Authorized [id number] Closed 08/02/2023 08/31/2024 1 1 Encounter Details Date Type Department Care Team (Late st Contact Info) Description 08/02/2023 Orders Only [facility] [address] [place] [id number] Margareth Herrera DO [address] [address] Malposition of fetus, single or unspecified fetus [...] fetus documented in this encounter Care Teams Splitting Machine Operator Relationship Specialty Start Date End Date No, Physician PCP - General 03/09/23 documented as of this encounter
--- OUTSIDE RECORDS SUMMARY | 2024-10-29 00:31 | XMS_ITS | Encounter Summary ---
Author Organization [facility] Healthcare Address [address] [place] [address] Care Team Providers Care Nurse Navigator Name Role Phone No, Physician Primary Care Provider [phone] Encounter Details Date Type Department Care Team (Late st Contact Info) Description 08/17/2023 Telephone [facility] [address] [employer] [address] Elena Veliz LPN Social History [...] on filedocumented in this encounter Care Teams Nurse Navigator Relationship Specialty Start Date End Date No, Physician PCP - General 03/09/23 documented as of this encounter
--- OUTSIDE RECORDS SUMMARY | 2024-10-29 00:31 | XMS_ITS | Encounter Summary ---
Author Organization [facility] Address [address] [place] [address] Care Team Providers Care Order Editor Name Role Phone No, Physician Primary Care Provider [phone] Encounter Details Date Type Department Care Team (Late st Contact Info) Description 06/22/2023 Telephone [facility] [address] [place] [address] Elena Veliz LPN Social History [...] the order sent. * Telephone Encounter - Eelna Veliz LPN - 06/22/2023 3:00 PM CDT [...] on filedocumented in this encounter Care Teams Order Editor Relationship Specialty Start Date End Date No, Physician PCP - General 03/09/23 documented as of this encounter
--- OUTSIDE RECORDS SUMMARY | 2024-10-29 00:31 | XMS_ITS | Encounter Summary ---
Author Organization [facility] Healthcare Address [address] [place] [address] Care Team Providers Care Windows Phone Developer Name Role Phone No, Physician Primary Care Provider [phone] Encounter Details Date Type Department Care Team (Latest Contact Info) Description 08/22/2023 10:04 AM CDT - 08/22/2023 11:59 PM CDT Hospital Encounter [address] [id number] Encounter for supervision of other normal in [...] week 08/22/2023 How often do you attend [facility] or quaker services? More than 4 times per year 08/22/2023 Do you belong to any clubs o r organizations such as yarsanism groups, unions, fraternal or athletic groups, or [...] staff should administer the PHQ-9) 0 08/22/2023 [facility] Occup[facility] ional [facility] [...] slept in a halfway (including now)? No 08/22/2023 Comments Yes Sex [...] Negative [facility] Comment:Testing performed by : [facility], [address] [place] [address]., [address] Vaginal/Rectal 08/22/2023 3: 28 PM CDT 08/23/2023 3:22 AM CDT Narrative [facility] - 08/25/2023 9:25 PM CDT Testing performed by [facility] Microbiology Laboratory ([phone]). Margareth Herrera DO LAB MICROBIOLOGY - GENE RAL ORDERABLES Final Result [facility] [address] Department [place] [address] documented in this encounter Visit Diagnoses Diagnosis Encounter for supervision of other normal in third trimester 36 weeks gestation of documented in this encounter Care Teams Windows Phone Developer Relationship Specialty Start Date End Date No, Physician PCP - General 03/09/23 documented as of this encounter
--- OUTSIDE RECORDS SUMMARY | 2024-10-29 00:31 | XMS_ITS | Encounter Summary ---
Author Organization [facility] Healthcare Address [address] [place] [address] Care Team Providers Care Bone Char Kiln Operator Name Role Phone No, Physician Primary Care Provider [phone] Encounter Details Date Type Department Care Team (Latest Contact Info) Description 06/16/2023 10:13 AM CDT - 06/16/2023 11:59 PM CDT Hospital Encounter [facility] [address] [place] [address] Encounter for supervision of other normal in [...] mouth daily 30 packet 2 05/15/2023 08/22/2023 [id number] olic (Kosher Plus Iron) 30 mg iron- [...] Detected [facility] ARMENDARIZ Comment:Testing performed by : [facility], [address] [place] [address]., [address] Gardnerella DNA probe Detected(A) Not Detected [facility] ARMEND[facility] Comment:Testing performed by : [facility], [address] [place] [address]., [address] Trichomonas DNA probe Not Detected Not Detected [facility] Comment: Interpretive Data Testing performed by [facility] via Affirm VPIII Microbial Identification Test, [...] last revised on 2020. Testing performed by: [facility], [address] [place] [address]., [address] Vaginal 06/16/2023 4:30 PM CDT 06/17/2023 2:00 PM CDT us Margareth Herrera DO LAB MICROBIOLOGY - GENE RAL ORDERABLES Final Result [facility] [address] Department [place] [address] * Urine culture Urine, clean voided (06/16/2023 3:58 PM CDT) Report Final Report: Growth indicative of contamination with periurethral shekhar. Please submit a new specimen with special attention given to the collection process and to prompt transport to the laboratory. [facility] Comment:Testing performed by : [facility], [address] [place]., [address] Organism GROWTH INDICATES CONTAM WITH PERIURETHRAL SHEKHAR. [facility] Urine, clean voided 06/16/2023 3:58 PM CDT 06/16/2023 10:43 PM CDT Narrative [facility] - 06/18/2023 11:15 AM CDT Testing performed by [facility] Microbiology Laboratory ([phone]) Hannah Pop MD LAB MICROBIOLOGY - [facility] ORDERABLES Final Result [facility] [address] [address] Department [place] [address] * (ABNORMAL) Differential, auto (06/16/2023 10:41 AM CDT) Neutrophil abs 6.8(H) 1.7 - 6.5 K/cumm [facility] Imm gran abs 0.0 0.0 - 0.1 K/cumm [facility] Lymphocyte abs 1.6 0.8 - 3.3 K/cumm [facility] Monocyte abs 0.5 0.2 - 0.8 K/cumm [facility] Eosinophil abs 0.2 0.0 - 0.5 K/cumm [facility] Basophil abs 0.0 0.0 - 0.1 K/cumm [facility] Neutrophil pct 74.6 % [facility] Comment: Interpretive Data Percent cell count reference ranges are not reported, since discordance with absolute values may lead to misinterpretation of CBC data. Current Interpretive Data was last revised on 2018. Imm gran pct 0.4 % [facility] Comment: Interpretive Data Percent cell count reference ranges are not reported, since discordance with absolute values may lead to misinterpretation of CBC data. Current Interpretive Data was last revised on 2018. Lymphocyte pct 17.2 % [facility] Comment: Interpretive Data Percent cell count [...] BLOOD ORDERABLES Final Result Performing Organization Address City/[facility]/ZIP Co de Phone Number [facility] [address] [place] [address] * HIV 1/2 Antibody plus [...] - GE NERAL ORDERABLES Final Result [facility] [address] [place] [address] * (ABNORMAL) CBC with auto differential (06/16/2023 10:41 AM CDT) WBC 9.2 3.8 - 9.9 K/cumm [facility] Hgb 11.4(L) 11.9 - 15.5 g/dL [facility] Hct 35.0(L) 35.6 - 45.5 % [facility] Plt 255 150 - 400 K/cumm [facility] MPV 9.9 9.1 - 12.3 fL [facility] RBC 3.77(L) 3.90 - 5.20 M/cumm [facility] MCV 92.8 81.3 - 96.4 fL [facility] MCH 30.2 27.1 - 33.3 pg [facility] MCHC 32.6 32.3 - 35.7 g/dL [facility] RDW CV 12.7 11.1 - 14.9 % [facility] RDW SD 43.6 35.7 - 48.1 fL [facility] NRBC abs 0.00 0.00 - 0.01 K/cumm [facility] Blood 06/16/2023 10:4 1 AM CDT 06/16/2023 6:47 PM CDT Hannah Pop MD LAB BLOOD ORDERABLES Final Result [facility] [address] [place] [address] * Glucose tolerance testing 50 gram gestational screen (06/16/2023 10:41 AM CDT) GTT 50g gest screen 137 <=140 mg/dL [facility] Comment: Interpretive Data Used for suspected [...] MD LAB BLOOD ORDERABLES Final Result [facility] [address] [address] Department of Laboratories [place], [place] [id number] documented in this encounter Visit Diagnoses Diagnosis Encounter for supervision of other normal in third trimester 27 weeks gestation of Acute vaginitis Unspecified vaginitis and vulvovaginitis documented in this encounter Care Teams Bone Char Kiln Operator Relationship Specialty Start Date End Date No, Physician PCP - General 03/09/23 documented as of this encounter
--- OUTSIDE RECORDS SUMMARY | 2024-10-29 00:31 | XMS_ITS | Encounter Summary ---
Author Organization [facility] Address [address] [place] [address] Care Team Providers Care Fur Dry Cleaner Name Role Phone No, Physician Primary Care Provider [phone] Reason for Visit * Reason Comments Routine Visit Encounter Details Date Type Department Care Team (Late st Contact Info) Description 06/30/2023 11:30 AM CDT Office Visit [facility] [address] [place] [address] Margareth Herrera, DO [address] [place] [address] Encounter for supervision of other normal in [...] Protein, ur, POC Negative Negative Lot Number [id number] Urine 06/30/2023 11:3 7 AM CDT Margareth Herrera DO POINT OF CARE TEST SANDRAHortencia CLEARYCAL Final Result documented in this encounter Visit Diagnoses Diagnosis Encounter for supervision of other normal in third trimester- Primary documented in this encounter Care Teams Fur Dry Cleaner Relationship Specialty Start Date End Date No, Physician PCP - General 03/09/23 documented as of this encounter
--- OUTSIDE RECORDS SUMMARY | 2024-10-29 00:31 | XMS_ITS | Encounter Summary ---
Author Organization [facility] Healthcare Address [address] [place] [address] Care Team Providers Care Handstitching Machine Armhole Feller Name Role Phone No, Physician Primary Care Provider [phone] Reason for Visit * Reason Comments Problem Saw Dr. Herrera today, SVE 5cm. Contracted all weekend. Encounter Details Date Type Department Care Team (Late st Contact Info) Description 08/22/2023 12:19 PM CDT - 08/22/2023 2:35 PM CDT Hospital Encounter [facility] [address] [place] [address] Margareth Herrera, DO [address] [place] [address] Discharge Disposition: Discharge to home or self [...] often do you attend chur ch or rastafarian services? More than 4 times per year 08/22/2023 Do you belong to any clubs o r organizations such as voodoo groups, unions, fraternal or athletic groups, or [...] staff should administer the PHQ-9) 0 08/22/2023 [facility] of Occupat ional [facility] - Occupational Stress Questionnaire Answer Date Recorded [...] Everywhere. * Early Labor Signs (AfterCare(R) Instructions(ER/ED)) (Mongolian) * at 35 to 38 Weeks (Discharge Care) (Mongolian) documented in this encounter Discharge Disposition Disposition [...] by mouth daily Therapy completed 05/15/2023 08/22/2023 [id number],crb-folic (Kosher Plus Iron) 30 mg iron- 1 mg tablet Take 1 tablet by mouth daily Therapy completed 03/06/2021 08/22/2023 documented as of this encounter Orders Discharge Count Last Ordered Date First Orde red Date DISCHARGE PATIENT 1 08/22/2023 documented in this encounter Care Teams Handstitching Machine Armhole Feller Relationship Specialty Start Date End Date No, Physician PCP - General 03/09/23 documented as of this encounter
--- OUTSIDE RECORDS SUMMARY | 2024-10-29 00:31 | XMS_ITS | Encounter Summary ---
Author Organization [facility] Healthcare Address [address] [place] [address] Care Team Providers Care Power Plant Superintendent Name Role Phone No, Physician Primary Care Provider [phone] Reason for Visit * Reason Comments Routine Visit Encounter Details Date Type Department Care Team (Late st Contact Info) Description 08/22/2023 10:10 AM CDT Office Visit [facility] [address] [place] [address] Margareth Herrera, DO [address] [place] [address] Encounter for supervision of other normal in [...] often do you attend chur ch or druze services? More than 4 times per year 08/22/2023 Do you belong to any clubs o r organizations such as jew groups, unions, fraternal or athletic groups, or [...] administer the PHQ-9) 0 08/22/2023 [facility] of Occupat ional [facility] - Occupational Stress Questionnaire Answer Date [...] Report: Negative CERNER Comment:Testing performed by : [facility], [address] [facility], [place]., [address] Vaginal/Rectal 08/22/2023 3: 28 PM CDT 08/23/2023 3:22 AM CDT Narrative OSCAR ARMENDARIZ - 08/25/2023 9:25 PM CDT Testing performed by [facility] Microbiology Laboratory ([phone]). us Margareth Herrera DO LAB MICROBIOLOGY - GENE RAL ORDERABLES Final Result OSCAR [address] [address] Department [place] [address] * (ABNORMAL) POCT urine glucose and protein (08/22/2023 10:03 AM CDT) Glucose, ur, POC Negative Negative MG/DL Protein, ur, POC 1+(A) Negative Lot Number [id number] Urine 08/22/2023 10:0 3 AM CDT us Margareth Herrera DO POINT OF CARE TEST ORDE RABLES Final Result documented in this encounter Visit Diagnoses Diagnosis Encounter for supervision of other normal in third trimester- Primary 36 weeks gestation of Encounter for supervision of other normal in third trimester 36 weeks gestation of documented in this encounter Care Teams Power Plant Superintendent Relationship Specialty Start Date End Date No, Physician PCP - General 03/09/23 documented as of this encounter
--- OUTSIDE RECORDS SUMMARY | 2024-10-29 00:31 | XMS_ITS | Encounter Summary ---
Author Organization [facility] Healthcare Address [address] [place] [address] Care Team Providers Care Assistant Program Manager Name Role Phone No, Physician Primary Care Provider [phone] Reason for Visit * Diagnostic Imaging (Routine) - Closed Specialty Diagnoses / Procedures Referred By Contac t Referred To Contact Diagnoses Malposition of fetus, single or unspecified fetus Procedures US Ob Limited Margareth Herrera, DO [address] [place] [address] Phone: tel: fax: [facility] Referral ID Status Reason Start Date Expiration Date Visits Re quested Visits Authorized [id number] Closed 08/02/2023 08/31/2024 1 1 Encounter Details Date Type Department Care Team (Latest Contact Info) Description 08/02/2023 11:40 AM CDT Ancillary Procedure [facility] [address] [place] [id number] Malposition of fetus, single or unspecified fetus [...] fetus documented in this encounter Care Teams Assistant Program Manager Relationship Specialty Start Date End Date No, Physician PCP - General 03/09/23 documented as of this encounter
--- OUTSIDE RECORDS SUMMARY | 2024-10-29 00:31 | XMS_ITS | Encounter Summary ---
Author Organization [facility] Healthcare Address [address] [place] [address] Care Team Providers Care International Marketing Executive Name Role Phone No, Physician Primary Care Provider [phone] Encounter Details Date Type Department Care Team (Late st Contact Info) Description 06/22/2023 Orders Only [address] [address] Margareth Herrera, DO [address] [place] [address] Social History Tobacco Use Types Packs/Day Years [...] on filedocumented in this encounter Care Teams International Marketing Executive Relationship Specialty Start Date End Date No, Physician PCP - General 03/09/23 documented as of this encounter
--- OUTSIDE RECORDS SUMMARY | 2024-10-29 00:31 | XMS_ITS | Encounter Summary ---
Author Organization [facility] Address [address] [place] [address] Care Team Providers Care Wood Tile Installer Name Role Phone No, Physician Primary Care Provider [phone] Encounter Details Date Type Department Care Team (Late st Contact Info) Description 07/14/2023 Telephone [facility] [address] [place] [address] Margareth Herrera, DO [address] [place] [address] Social History Tobacco Use Types Packs/Day Years [...] let you know that she went to [facility] and was checked and that staff at [facility] stated she was thinning and dilated to a 1 and just wanted to let you know of this. documented in this encounter Plan of Treatment Not on file documented as of this encounter Visit Diagnoses Not on filedocumented in this encounter Care Teams Wood Tile Installer Relationship Specialty Start Date End Date No, Physician PCP - General 03/09/23 documented as of this encounter
--- OUTSIDE RECORDS SUMMARY | 2024-10-29 00:31 | XMS_ITS | Encounter Summary ---
Author Organization [facility] Medical Group Address [address] [place] [address] Care Team Providers Care Milieu Therapist Name Role Phone No, Physician Primary Care Provider [phone] Encounter Details Date Type Department Care Team (Late st Contact Info) Description 06/22/2023 Telephone [facility] [address] [place] [address] Elena Veliz LPN Social History [...] slept in a fpc (including now)? No 04/14/2023 Comments Yes Sex [...] PM CDT Patient notified. Will go to [facility] in [place] tomorrow for 3 hr GTT * Telephone [...] Glucose, fasting 75 65 - 94 mg/dL [facility] Glucose, 1 hour 165 <180 mg/dL Que [facility] Glucose, 100g, 2 hr, pl 127 <155 mg/dL [facility] Glucose, 100g, 3 hr, pl 74 <140 mg/dL [facility] Comment [facility] Comment: ?? Galaviz/Coustan Criteria: Two or more values greater than the above reference intervals are suggestive of gestational diabetes. ?? Serum 07/05/2023 9:21 AM CDT 07/05/2023 9:22 AM CDT Narrative [facility] - 07/06/2023 2:32 AM CDT FASTING:YES FASTING: YES Margareth Herrera DO LAB BLOOD ORDERABLES Fi nal Result [facility] [address] [place] [address] documented in this encounter Visit Diagnoses Diagnosis Elevated glucose tolerance test- Primary Impaired glucose tolerance test documented in this encounter Care Teams Milieu Therapist Relationship Specialty Start Date End Date No, Physician PCP - General 03/09/23 documented as of this encounter
--- OUTSIDE RECORDS SUMMARY | 2024-10-29 00:31 | XMS_ITS | Encounter Summary ---
Author Organization [facility] Healthcare Address [address] [place] [address] Care Team Providers Care Adapted Physical Education Specialist Name Role Phone No, Physician Primary Care Provider [phone] Encounter Details Date Type Department Care Team (Late st Contact Info) Description 08/09/2023 Telephone [facility] [address] [place] [address] Margareth Herrera, DO [address] [place] [address] Social History Tobacco Use Types Packs/Day [...] in her moms garage and went to [facility] and got checked out. Pt states feels fine and next appt is 08/17 does she need tocome in sooner or is 08/17 ok. CBN#[phone] documented in this encounter Plan of Treatment Not on file documented as of this encounter Visit Diagnoses Not on filedocumented in this encounter Care Teams Adapted Physical Education Specialist Relationship Specialty Start Date End Date No, Physician PCP - General 03/09/23 documented as of this encounter
--- OUTSIDE RECORDS SUMMARY | 2024-10-29 00:31 | XMS_ITS | Encounter Summary ---
Author Organization [facility] Healthcare Address [address] [place] [address] Care Team Providers Care Eeler Name Role Phone No, Physician Primary Care Provider [phone] Reason for Visit * Reason Comments Routine Visit Encounter Details Date Type Department Care Team (Late st Contact Info) Description 08/02/2023 10:20 AM CDT Office Visit [facility] [address] [place] [address] Margareth Herrera, DO [address] [place] [address] Encounter for supervision of other normal in [...] Protein, ur, POC Negative Negative Lot Number [id number] Urine 08/02/2023 10:3 0 AM CDT Margareth Herrera DO POINT OF CARE TEST YIMI MACIAS Final Result documented in this encounter Visit Diagnoses Diagnosis Encounter for supervision of other normal in third trimester- Primary documented in this encounter Care Teams Eeler Relationship Specialty Start Date End Date No, Physician PCP - General 03/09/23 documented as of this encounter
--- OUTSIDE RECORDS SUMMARY | 2024-10-29 00:32 | XMS_ITS | Encounter Summary ---
Author Organization [facility] Medical Group Address [address] [place] [address] Care Team Providers Care Auto Repair Technician Name Role Phone No, Physician Primary Care Provider [phone] Reason for Visit * Diagnostic Imaging (Routine) - Closed Specialty Diagnoses / Procedures Referred By Lenora pacheco Referred To Contact Diagnoses Encounter for maternal care for excessive growth in second trimester, single or unspecified fetus 20 weeks gestation of Procedures US Ob 14 Weeks Or Over Margareth Herrera, DO [address] [place] [address] Phone: tel: fax: [facility] Referral ID Status Reason Start Date Expiration Date Visits Re quested Visits Authorized [id number] Closed 04/14/2023 05/13/2024 1 1 Encounter Details Date Type Department Care Team (Latest Contact Info) Description 04/27/2023 2:40 PM CDT Ancillary Procedure [facility] [address] [place] [id number] Encounter for maternal care for excessive growth [...] of documented in this encounter Care Teams Auto Repair Technician Relationship Specialty Start Date End Date No, Physician PCP - General 03/09/23 documented as of this encounter
--- OUTSIDE RECORDS SUMMARY | 2024-10-29 00:32 | XMS_ITS | Encounter Summary ---
Author Organization [facility] Medical Group Address [address] [address] Care Team Providers Care Iron Guardrail Installer Name Role Phone No, Physician Primary Care Provider [phone] Reason for Referral * Diagnostic Imaging (Routine) - Closed Specialty Diagnoses / Procedures Referred By Lenora t Referred To Contact Diagnoses Encounter for maternal care for excessive growth in second trimester, single or unspecified fetus 20 weeks gestation of Procedures US Ob 14 Weeks Or Over Margareth Herrera DO [address] [address] Phone: tel: fax: [facility] Referral ID Status Reason Start Date Expiration Date Visits Re quested Visits Authorized [id number] Closed 04/14/2023 05/13/2024 1 1 Encounter Details Date Type Department Care Team (Late st Contact Info) Description 04/14/2023 2:30 PM CDT Office Visit [facility] [address] [place] [address] Margareth Herrera DO [address] [address] care, subsequent , second trimester (Primary Dx); [...] of documented in this encounter Care Teams Iron Guardrail Installer Relationship Specialty Start Date End Date No, Physician PCP - General 03/09/23 documented as of this encounter
--- OUTSIDE RECORDS SUMMARY | 2024-10-29 00:32 | XMS_ITS | Encounter Summary ---
Author Organization [facility] Medical Group Address [address] [place] [address] Care Team Providers Care Logging Assistant Name Role Phone No, Physician Primary Care Provider [phone] Encounter Details Date Type Department Care Team (Late st Contact Info) Description 05/03/2023 Telephone [facility] [address] [place] [address] Denise Venegas Social History Tobacco [...] slept in a fci (including now)? No 04/14/2023 Comments Yes Sex [...]
--- OUTSIDE RECORDS SUMMARY | 2024-10-29 00:32 | XMS_ITS | Encounter Summary ---
Author Organization [facility] Medical Group Address [address] [address] Care Team Providers Care Children'S Book Author Name Role Phone No, Physician Primary Care Provider [phone] Reason for Visit * Reason Comments New Patient Initial Visit Encounter Details Date Type Department Care Team (Late st Contact Info) Description 03/23/2023 10:10 AM CDT Office Visit [facility] [address] [place] [address] Margareth Herrera, DO [address] [place] [address] care, subsequent , second trimester (Primary Dx); [...] MD 6 Current Past medical, surgical, and LACEMAKER 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 Review of Systems Constitutional: [...] was counseled on the limitations of our [facility] and that can not guarantee the material controller OB will offer a TOLAC if she [...] OSCAR ARMENDARIZ Comment: Testing performed by the [facility]. This assay detects Chlamydia trachomatis and [...] GENE RAL ORDERABLES Final Result OSCAR ARMENDARIZ [address] Department [place] [address] * (ABNORMAL) Varicella Zoster IgG antibody Blood (03/23/2023 11:20 AM CDT) VZV IgG Nonreacti ve(A) Reactive CERNER Comment: Non-reactive: No detectable antibody to Varicella-zoster virus.??Such individuals are presumed to be uninfected and to be susceptible to primary infection. Testing performed by: [facility], [address] [place]., [address] Blood 03/23/2023 11:2 0 AM CDT 03/24/2023 12:51 PM CDT Margareth Herrera DO LAB MICROBIOLOGY - GENE RAL ORDERABLES Final Result Performing Organization Address [facility] Co de Phone Number [facility] [address] [address] [place] [address] * Urine culture Urine, clean voided (03/23/2023 11:20 AM CDT) Report Final Report: Less than 100,000 colonies/mL (clinically insignificant growth based on current clinical standards) OSCAR Comment:Testing performed by : [facility], [address] [facility], [place]., [address] Organism (CLINICALLY INSIGNIFICANT GROWTH CERNER Urine, clean voided 03/23/2023 11:20 AM CDT 03/23/2023 9:05 PM CDT Narrative [facility] - 03/25/2023 5:16 AM CDT Testing performed by [facility] Microbiology Laboratory ([phone]) Margareth Herrera DO LAB MICROBIOLOGY - GENE RAL ORDERABLES Final Result Performing Organization Address [facility] Co de Phone Number OSC[facility] [address] [address] [place] [address] * Type and screen (03/23/2023 11:20 AM CDT) Rinku, indirect Negative CERNER CH ABO Rh B Positive CERNER Blood 03/23/2023 11:2 0 AM CDT 03/23/2023 5:36 PM CDT Narrative [facility] - 03/23/2023 7:02 PM CDT Has the patient had Daratumumab or Isatuximab in the past 6 months?->Unknown Margareth Herrera LAB BLOOD BANK TEST ORD ERABLES Final Result Performing Organization Address City/[facility]/ZIP Co de Phone Number OSCAR [address] [address] [place], [place] [id number] * Rubella IgG antibody (03/23/2023 11:20 AM CDT) Rubella IgG Reactive [facility] Comment: Reactive: Results suggest response to immunization or prior exposure to the virus. Testing performed by: [facility], [address] [place]., [address] Blood 03/23/2023 11:2 0 AM CDT 03/24/2023 12:51 PM CDT Margareth Herrera LAB MICROBIOLOGY - GENE RAL ORDERABLES Final Result Performing Organization Address City/[facility]/ZIP Co de Phone Number OSC[facility] [address] [address] [place] [address] * RPR Blood (03/23/2023 11:20 AM CDT) RPR Nonreactive Nonreactive [facility] Blood 03/23/2023 11:2 0 AM CDT 03/23/2023 5:32 PM CDT Margareth Herrera LAB MICROBIOLOGY - GENE RAL ORDERABLES Final Result [facility] [address] [address] [place] [address] * HIV 1/2 Antibody plus p24 Antigen Blood (03/23/2023 11:20 AM CDT) HIV 1/2 ab + p24 ag Nonreactive Nonreactive [facility] Comment: Nonreactive for HIV-1 antigen and HIV-1/HIV-2 antibodies. No laboratory evidence of HIV infection. If acute HIV infection is suspected, consider testing for HIV-1 RNA. Blood 03/23/2023 11:2 0 AM CDT 03/23/2023 5:32 PM CDT us Margareth Herrera DO LAB MICROBIOLOGY - GENE RAL ORDERABLES Final Result Performing Organization Address [facility] Phone Number [facility] [address] [address] [facility] [place] [address] * Hepatitis C antibody (03/23/2023 11:20 AM CDT) Hep C Ab Nonreactive Nonreactive [facility] Comment: Interpretive Data Nonreactive: Antibodies [...] Edited Result - Final Performing Organization Address [facility] de Phone Number [facility] [address] [facility] [place] [address] * Hepatitis B Surface Antigen (03/23/2023 11:20 AM CDT) HepBsAg Nonreactive Nonreactive [facility] Blood 03/23/2023 11:2 0 AM CDT 03/23/2023 5:32 PM CDT Margareth Herrera DO LAB MICROBIOLOGY - GENE RAL ORDERABLES Final Result Performing Organization Address [facility] Phone Number [facility] [address] Department [place] [address] * (ABNORMAL) Drugs of Abuse Screen, Urine [...] 2018. Benzodiazepines, ur Not Detected CutOff 100ng/mL [facility] Comment: Interpretive Data - Benzodiazepines: ??Samples [...] LAB URINE ORDERABLES Fi nal Result [facility] [address] [facility] Department [place] [address] * CBC with auto differential (03/23/2023 11:20 AM CDT) WBC 8.1 3.8 - 9.9 K/cumm [facility] Hgb 11.9 11.9 - 15.5 g/dL [facility] Hct 35.9 35.6 - 45.5 % [facility] Plt 273 150 - 400 K/cumm [facility] MPV 10.1 9.1 - 12.3 fL [facility] RBC 4.04 3.90 - 5.20 M/cumm [facility] MCV 88.9 81.3 - 96.4 fL [facility] MCH 29.5 27.1 - 33.3 pg [facility] MCHC 33.1 32.3 - 35.7 g/dL [facility] RDW CV 13.7 11.1 - 14.9 % [facility] RDW SD 45.0 35.7 - 48.1 fL [facility] NRBC abs 0.00 0.00 - 0.01 K/cumm [facility] Blood 03/23/2023 11:2 0 AM CDT 03/23/2023 5:32 PM CDT Margareth Herrera DO LAB BLOOD ORDERABLES Fi nal Result [address] Department [place] [address] * Pap with reflex to High Risk HPV (03/23/2023 8:02 AM CDT) Thin prep (Pap test) 03/23/2023 8:02 AM CDT 03/23/2023 8:02 AM CDT Narrative PATHOLOGY [facility] - 03/28/2023 1:21 PM CDT [facility] Department of Pathology [address] [place] [address] Final Report Note to Patients: This [...] ??HANNAH LUIS Address: ??[address], ?? [place], [place] ?? Gender: ??F : ??1995 (Age: 27) Service: ?? Location: ?? Hospital #: ??[id number] Patient Type: ?? SPECIMEN Taken: ??03/23/2023 Received: ??03/23/2023 Accessioned:: ??03/24/2023 Reported: ??03/28/2023 Physician(s): Nessa Mcgee D.O. Diagnosis: SOURCE OF SPECIMEN ? Imaged Thinprep Pap Test w/ Reflex HPV - Front Edger Cytologic Material: STATEMENT OF ADEQUACY ?- Specimen satisfactory for interpretation; endocervical/transformation zone component absent or ?insufficient ? GENERAL CATEGORIZATION: ?- Negative for intraepithelial lesion or malignancy ? INTERPRETATION: ?- Numerous inflammatory cells present ? DISHA Faulkner(ASCP) Report Electronically Reviewed and Signed Out By ??DISHA Faulkner(ASCP) ??03/28/2023 13:21:27Specimen(s) Received: A: Imaged Thinprep Pap Test w/ Reflex HPV - Front Edger Cytologic Material Clinical History: Last Menstrual Period: [...] determined by the Surgical Pathology Department at [facility] as part of an ongoing quality control projectionist program and in compliance with federally mandated [...] characteristics determined by the Surgical Pathology Department [facility]. ??It has not been cleared or approved by the U. S. Food and Drug Administration. Margareth Herrera DO LAB CYTOLOGY ORDERABLES Final Result PATHOLOGY [address] [place] [address] documented in this encounter Visit Diagnoses Diagnosis [...] may reflect changes made after this encounter. [id number],crb-f olic (Kosher Plus Iron) 30 mg iron- 1 mg tablet Take 1 tablet by mouth daily 03/06/2021 08/22/2023 added in this encounter Care Teams Children'S Book Author Relationship Specialty Start Date End Date No, Physician PCP - General 03/09/23 documented as of this encounter
--- OUTSIDE RECORDS SUMMARY | 2024-10-29 00:32 | XMS_ITS | Encounter Summary ---
Author Organization [facility] Address [address] [place] [address] Care Team Providers Care Flare Breaker Name Role Phone No, Physician Primary Care Provider Encounter Details Date Type Department Care Team (Late st Contact Info) Description 05/15/2023 Orders Only [facility] [address] [place] [address] Hannah Pop MD [address] [place] [address] Encounter for supervision of other [...] laboratory. OSCAR [facility]IZ Comment:Testing performed by : [facility], [address] [place]., [address] Organism GROWTH INDICATES CONTAM WITH PERIURETHRAL SHEKHAR. [facility] Urine, clean voided 06/16/2023 3:58 PM CDT 06/16/2023 10:43 PM CDT Narrative [facility] - 06/18/2023 11:15 AM CDT Testing performed by [facility] Microbiology Laboratory ([phone]) us Hannah Pop MD LAB MICROBIOLOGY - NERAL ORDERABLES Final Result [facility] ARM[facility]ARIZ [address] [address] Department [place] [address] * HIV 1/2 Antibody plus [...] NERAL ORDERABLES Final Result Performing Organization Address [facility] de Phone Number FERNANDOTYREL ARMENDARIZ [address] [address] Department [place] [address] * Glucose tolerance testing 50 gram gestational [...] BLOOD ORDERABLES Final Result Performing Organization Address [facility] de Phone Number FERNANDOTYREL ARMENDARIZ [address] [address] Department [place] [address] * (ABNORMAL) CBC with auto differential (06/16/2023 10:41 AM CDT) WBC 9.2 3.8 - 9.9 K/cumm [facility] Hgb 11.4(L) 11.9 - 15.5 g/dL [facility] Hct 35.0(L) 35.6 - 45.5 % [facility] Plt 255 150 - 400 K/cumm [facility] MPV 9.9 9.1 - 12.3 fL [facility] RBC 3.77(L) 3.90 - 5.20 M/cumm [facility] MCV 92.8 81.3 - 96.4 fL [facility] MCH 30.2 27.1 - 33.3 pg [facility] MCHC 32.6 32.3 - 35.7 g/dL [facility] RDW CV 12.7 11.1 - 14.9 % [facility] RDW SD 43.6 35.7 - 48.1 fL [facility] NRBC abs 0.00 0.00 - 0.01 K/cumm [facility] Blood 06/16/2023 10:4 1 AM CDT 06/16/2023 6:47 PM CDT us Hannah Pop MD LAB BLOOD ORDERABLES Final Result [facility] [address] [address] Department of Laboratories [place] [phone] documented in this encounter Visit Diagnoses Diagnosis Encounter for supervision of other normal in third trimester- Primary 27 weeks gestation of Encounter for supervision of other normal in third trimester 27 weeks gestation of Acute vaginitis Unspecified vaginitis and vulvovaginitis documented in this encounter Care Teams Flare Breaker Relationship Specialty Start Date End Date No, Physician PCP - General 03/09/23 documented as of this encounter
--- OUTSIDE RECORDS SUMMARY | 2024-10-29 00:32 | XMS_ITS | Encounter Summary ---
Author Organization [facility] Address [address] [facility] [address] [place] [address] Care Team Providers Care Chief Dietitian Name Role Phone No, Physician Primary Care Provider [phone] Reason for Visit * Reason Comments Routine Visit Encounter Details Date Type Department Care Team (Late st Contact Info) Description 06/16/2023 10:50 AM CDT Office Visit [facility] [address] [place] [address] Margareth Herrera, DO [address] [address] care, subsequent , second trimester (Primary Dx); [...] Vaginitis panel Vaginal (06/16/2023 4:30 PM CDT) [facility] Marley DNA probe Detected(A) Not Detected OSCAR ARMENDARIZ Comment:Testing performed by : [facility], [address] [place] [address]., [address] Gardnerella DNA probe Detected(A) Not Detected OSCAR ARMENDARIZ Comment:Testing performed by : [facility], [address] [place] [address]., [address] Trichomonas DNA probe Not Detected Not Detected [facility] ARMENDARIZ Comment: Interpretive Data Testing performed by [facility] via Affirm VPIII Microbial Identification Test, [...] last revised on 2020. Testing performed by: [facility], [address] [place] [address]., [address] Vaginal 06/16/2023 4:30 PM CDT 06/17/2023 2:00 PM CDT Margareth Herrera DO LAB MICROBIOLOGY - GENE [facility] ORDERABLES Final Result OSCAR [address] [address] Department [place] [address] * (ABNORMAL) POCT urine glucose and protein (06/16/2023 10:13 AM CDT) [facility] Glucose, ur, POC Negative Negative MG/DL Protein, ur, POC 1+(A) Negative Lot Number [id number] Urine 06/16/2023 10:1 3 AM CDT Margareth Herrera DO POINT OF CARE TEST YIMI MACIAS Final Result documented in this encounter Visit Diagnoses Diagnosis care, subsequent , second trimester- Primary Acute vaginitis Unspecified vaginitis and vulvovaginitis documented in this encounter Care Teams Chief Dietitian Relationship Specialty Start Date End Date No, Physician PCP - General 03/09/23 documented as of this encounter
--- OUTSIDE RECORDS SUMMARY | 2024-10-29 00:32 | XMS_ITS | Encounter Summary ---
Author Organization [facility] Medical [facility] Address [address] [facility] [address] [place] [address] Care Team Providers Care Cement Sack Breaker Name Role Phone No, Physician Primary Care Provider [phone] Reason for Visit * Diagnostic Imaging (Routine) - Closed Specialty Diagnoses / Procedures Referred By Lenora pacheco Referred To Contact Diagnoses Encounter to determine viability of , single or unspecified fetus 15 weeks gestation of Procedures US OB 14 Weeks Or Over US Ob Under 14 Weeks Margareth Herrera, DO [address] [place] [address] Phone: tel: fax: [facility] Referral ID Status Reason Start Date Expiration Date Visits Re quested Visits Authorized [id number] Closed 03/09/2023 04/07/2024 1 1 Encounter Details Date Type Department Care Team (Latest Contact Info) Description 03/23/2023 9:10 AM CDT Ancillary Procedure [facility] [address] [facility] [place] [address] Encounter to determine viability of , single [...] of documented in this encounter Care Teams Cement Sack Breaker Relationship Specialty Start Date End Date No, Physician PCP - General 03/09/23 documented as of this encounter
--- OUTSIDE RECORDS SUMMARY | 2024-10-29 00:32 | XMS_ITS | Encounter Summary ---
Author Organization [facility] Healthcare Address [address] [place] [address] Care Team Providers Care Elementary Reading Tutor Name Role Phone No, Physician Primary Care Provider [phone] Encounter Details Date Type Department Care Team (Latest Contact Info) Description 03/23/2023 11:20 AM CDT - 03/23/2023 11:59 PM CDT Hospital Encounter [address] [address] care, subsequent , second trimester; 15 weeks [...] this encounter Medications at Time of Discharge [id number] (Kosher Plus Iron) 30 mg iron- [...] CDT) C. trachomatis Not detected Not detected [facility] N. gonorrhoeae Not detected Not detected [facility] Comment: Testing performed by the [facility] Laboratory. This assay detects Chlamydia trachomatis and [...] - GENE RAL ORDERABLES Final Result OSCAR [address] [address] Nina [place] [address] * Differential, auto (03/23/2023 11:20 AM CDT) Neutrophil abs 5.5 1.7 - 6.5 K/cumm [facility] Imm gran abs 0.0 0.0 - 0.1 K/cumm [facility] Lymphocyte abs 1.7 0.8 - 3.3 K/cumm [facility] Monocyte abs 0.7 0.2 - 0.8 K/cumm [facility] Eosinophil abs 0.2 0.0 - 0.5 K/cumm [facility] Basophil abs 0.0 0.0 - 0.1 K/cumm [facility] Neutrophil pct 68.0 % [facility] Comment: Interpretive Data Percent cell [...] DO LAB BLOOD ORDERABLES Fi nal Result [facility] [address] [address] [place] [address] * Alpha fetoprotein, quad screen (03/23/2023 11:20 [...] CH GA Used In Risk. Dates estimate [facility] alpha Fetoprotein 28.2 ng/mL [facility] Estriol, unconjugated 0.60 ng/mL [facility] HCG, qual 46.1 IUnits/m L [facility] Inhibin A, interpretation 289 pg/mL [facility] Down Syndrome Screen Risk Estimate. <270 [facility] Down Syndrome Maternal Age Risk. [facility] Trisomy 18 risk assessment <1/50,000 <1/100 [facility] alpha fetoprotein See Footnote [facility] Comment: Screen negative for neural tube defects, Down syndrome and trisomy 18. Additional Comments. Not Reported [facility] Recommended Follow Up. None. [facility] General Test Info. See Footnote [...] developed and its performance characteristics determined by [facility] in a manner consistent with CLIA requirements. This test has not been cleared or approved by the U.S. Food and Drug Administration. Test Performed by: [facility] [place] [address] [place] [address] Principal Web Developer: Chris Cleveland M.D. Ph.D.; CLIA# [id number] RESULTS SUMMARY Normal risk [facility] NEURAL [...] CH INITIAL OR REPEAT TESTING Initial testing [facility] PHYSICIAN PHONE NUMBER [phone] [facility] Blood 03/23/2023 11:2 0 AM CDT 03/23/2023 5:32 PM CDT Margareth Herrera DO LAB GENETIC TESTING Fin al Result Performing Organization Address City/[facility]/ZIP Co de Phone Number [facility]SC[facility] ARMENDARIZ [address] [address] Department [place] [address] * Urine culture Urine, clean voided (03/23/2023 11:20 AM CDT) Report Final Report: Less than 100,000 colonies/mL (clinically insignificant growth based on current clinical standards) [facility] Comment:Testing performed by : [facility], [address] [place]., [address] Organism (CLINICALLY INSIGNIFICANT GROWTH [facility] Urine, clean voided 03/23/2023 11:20 AM CDT 03/23/2023 9:05 PM CDT Narrative [facility] - 03/25/2023 5:16 AM CDT Testing performed by [facility] Microbiology Laboratory ([phone]) Margareth Herrera DO LAB MICROBIOLOGY - GENE RAL ORDERABLES Final Result Performing Organization Address City/[facility]/ZIP Co de Phone Number [facility] ARMENDARIZ [address] [address] Department of [employer] [place], [place] [id number] * (ABNORMAL) Drugs of Abuse Screen, Urine without Confirmation (03/23/2023 11:20 AM CDT) [facility] Amphetamine, ur Not Detected CutOff 500ng/mL [facility] [...] 2018. Benzodiazepines, ur Not Detected CutOff 100ng/mL [facility] Comment: Interpretive Data - Benzodiazepines: ??Samples containing greater than 100 ng/mL nordiazepam or other cross-reacting compounds are reported as positive. ?? False positive and false negative results are possible. ?? Current Interpretive Data was last reviewed 2018. Cannabinoids, ur Detected(A) CutOff 50 ng/mL [facility] Comment: Interpretive Data - Cannabinoids: ??Samples containing greater than 50 ng/mL delta-9 THC -COOH or other cross-reacting compounds are reported as positive. ??False positive and false negative results are possible. ?? Current Interpretive Data was last reviewed 2018. Cocaine, ur Not Detected CutOff 150ng/mL [facility] Comment: Interpretive Data - Cocaine: ??Samples containing greater than 150 ng/mL benzoylecgonine or other cross-reacting compounds are reported as positive. False positive and false negative results are possible. Current Interpretive Data was last reviewed 2018. Fentanyl, Ur Not Detected Cutoff 1 ng/mL [facility] Comment: Interpretive Data - Fentanyls: ??Samples containing [...] DO LAB URINE ORDERABLES Fi nal Result [facility] [address] [address] [place] [address] * HIV 1/2 Antibody plus p24 Antigen Blood (03/23/2023 11:20 AM CDT) Pathologist [facility] HIV 1/2 ab + p24 ag Nonreactive Nonreactive [facility] Comment: Nonreactive for HIV-1 antigen and HIV-1/HIV-2 antibodies. No laboratory evidence of HIV infection. If acute HIV infection is suspected, consider testing for HIV-1 RNA. Blood 03/23/2023 11:2 0 AM CDT 03/23/2023 5:32 PM CDT Margareth Herrera DO LAB MICROBIOLOGY - GENE RAL ORDERABLES Final Result [facility] [address] [address] [place] [address] * RPR Blood (03/23/2023 11:20 AM CDT) [facility] RPR Nonreactive Nonreactive [facility] Blood 03/23/2023 11:2 0 AM CDT 03/23/2023 5:32 PM CDT Margareth Herrera DO LAB MICROBIOLOGY - GENE RAL ORDERABLES Final Result Performing Organization Address City/[facility]/ZIP Co de Phone Number OSCAR [address] [address] Department [place] [address] * (ABNORMAL) Varicella Zoster IgG antibody Blood (03/23/2023 11:20 AM CDT) Pathologist [facility] VZV IgG Nonreacti ve(A) Reactive [facility] Comment: Non-reactive: No detectable antibody to Varicella-zoster virus.??Such individuals are presumed to be uninfected and to be susceptible to primary infection. Testing performed by: [facility], [address] [facility], [place]., [address] Blood 03/23/2023 11:2 0 AM CDT 03/24/2023 12:51 PM CDT us Margareth Herrera DO LAB MICROBIOLOGY - GENE RAL ORDERABLES Final Result [facility] ARM[facility] [address] [address] Department [place] [address] * Type and screen (03/23/2023 [...] ORD ERABLES Final Result Performing Organization Address [facility] Co de Phone Number OSCAR ARMENDARIZ [address] [address] [place] [address] * Rubella IgG antibody (03/23/2023 11:20 AM CDT) Pathologist [facility] Rubella IgG Reactive [facility] Comment: Reactive: Results suggest response to immunization or prior exposure to the virus. Testing performed by: [facility], [address] [place]., [address] Blood 03/23/2023 11:2 0 AM CDT 03/24/2023 12:51 PM CDT Margareth Herrera DO LAB MICROBIOLOGY - GENE RAL ORDERABLES Final Result Performing Organization Address City/[facility]/ZIP Co de Phone Number OSC[facility] ARMENDARIZ [address] [address] Department [place] [address] * Hepatitis B Surface Antigen (03/23/2023 11:20 AM CDT) HepBsAg Nonreactive Nonreactive [facility] Blood 03/23/2023 11:2 0 AM CDT 03/23/2023 5:32 PM CDT Margareth Herrera DO LAB MICROBIOLOGY - GENE RAL ORDERABLES Final Result Performing Organization Address City/[facility]/ZIP Co de Phone Number OSCAR ARMENDARIZ [address] [facility] [place] [address] * Hepatitis C antibody (03/23/2023 11:20 AM CDT) Hep C Ab Nonreactive Nonreactive [facility] Comment: Interpretive Data Nonreactive: Antibodies [...] Edited Result - Final Performing Organization Address City/[facility] Co de Phone Number OSCAR ARMENDARIZ [address] [address] [facility] [place] [address] * CBC with auto differential (03/23/2023 11:20 AM CDT) Pathologist [facility] WBC 8.1 3.8 - 9.9 K/cumm [facility] Hgb 11.9 11.9 - 15.5 g/dL [facility] Hct 35.9 35.6 - 45.5 % [facility] Plt 273 150 - 400 K/cumm [facility] MPV 10.1 9.1 - 12.3 fL [facility] RBC 4.04 3.90 - 5.20 M/cumm [facility] MCV 88.9 81.3 - 96.4 fL [facility] MCH 29.5 27.1 - 33.3 pg [facility] MCHC 33.1 32.3 - 35.7 g/dL [facility] RDW CV 13.7 11.1 - 14.9 % [facility] RDW SD 45.0 35.7 - 48.1 fL [facility] NRBC abs 0.00 0.00 - 0.01 K/cumm [facility] Blood 03/23/2023 11:2 0 AM CDT 03/23/2023 5:32 PM CDT us Margareth Herrera DO LAB BLOOD ORDERABLES Fi nal Result [facility] [address] [facility] [place] [address] * Pap with reflex to High Risk HPV (03/23/2023 8:02 AM CDT) Thin prep (Pap test) 03/23/2023 8:02 AM CDT 03/23/2023 8:02 AM CDT Narrative PATHOLOGY CH - 03/28/2023 1:21 PM CDT [facility] Department of Pathology [id number] [place], [place] [id number] Final Report Note to Patients: This report [...] ??HANNAH PYLE Address: ??[address], ?? [place], [place] [address] Gender: ??F : ??1995 (Age: 27) Service: ?? Location: ?? Hospital #: ??[id number] Patient Type: ?? SPECIMEN Taken: ??03/23/2023 Received: ??03/23/2023 Accessioned:: ??03/24/2023 Reported: ??03/28/2023 Physician(s): Nessa Mcgee D.O. Diagnosis: SOURCE OF SPECIMEN ? Imaged Thinprep Pap Test w/ Reflex HPV - Sole Dyer Cytologic Material: STATEMENT OF ADEQUACY ?- Specimen satisfactory for interpretation; endocervical/transformation zone component absent or ?insufficient ? GENERAL CATEGORIZATION: ?- Negative for intraepithelial lesion or malignancy ? INTERPRETATION: ?- Numerous inflammatory cells present ? DISHA Faulkner(ASCP) Report Electronically Reviewed and Signed Out By ??DISHA Faulkner(ASCP) ??03/28/2023 13:21:27Specimen(s) Received: A: Imaged Thinprep Pap Test w/ Reflex HPV - Sole Dyer Cytologic Material Clinical History: Last Menstrual Period: [...] determined by the Surgical Pathology Department at [facility] as part of an ongoing software quality assurance engineer program and in compliance with federally [...] determined by the Surgical Pathology Department [facility]. ??It has not been cleared or approved by the U. S. Food and Drug Administration. Margareth Herrera DO LAB CYTOLOGY ORDERABLES Final Result Performing Organization Address City/State/[facility] Co de Phone Number PATHOLOGY [address] [place] [address] documented in this encounter Visit Diagnoses Diagnosis care, subsequent , second trimester 15 weeks gestation of Screen for sexually transmitted diseases Screening examination for venereal disease Screening for malignant neoplasm of cervix Screening for malignant neoplasm of the cervix documented in this encounter Care Teams Elementary Reading Tutor Relationship Specialty Start Date End Date No, Physician PCP - General 03/09/23 documented as of this encounter
--- OUTSIDE RECORDS SUMMARY | 2024-10-29 00:32 | XMS_ITS | Encounter Summary ---
Author Organization [facility] Address [address] [facility] [address] [place] [address] Care Team Providers Care Branch Lending Officer Name Role Phone No, Physician Primary Care Provider [phone] Encounter Details Date Type Department Care Team (Late st Contact Info) Description 03/30/2023 Telephone [facility] [address] [place] [address] Elena Veliz LPN Social History [...] on filedocumented in this encounter Care Teams Branch Lending Officer Relationship Specialty Start Date End Date No, Physician PCP - General 03/09/23 documented as of this encounter
--- OUTSIDE RECORDS SUMMARY | 2024-10-29 00:32 | XMS_ITS | Encounter Summary ---
Author Organization [facility] Address [address] [facility] [address] [place] [address] Care Team Providers Care Franchise Specialist Name Role Phone No, Physician Primary Care Provider [phone] Encounter Details Date Type Department Care Team (Late st Contact Info) Description 04/10/2023 Documentation [facility] [address] [place] [address] Margareth Herrera DO [address] [address] Social History Tobacco Use Types Packs/Day Years [...] on filedocumented in this encounter Care Teams Franchise Specialist Relationship Specialty Start Date End Date No, Physician PCP - General 03/09/23 documented as of this encounter
--- OUTSIDE RECORDS SUMMARY | 2024-10-29 00:32 | XMS_ITS | Encounter Summary ---
Author Organization [facility] Address [address] [address] Care Team Providers Care Fry Cook Name Role Phone No, Physician Primary Care Provider [phone] Reason for Visit * Reason Comments Routine Visit Encounter Details Date Type Department Care Team (Late st Contact Info) Description 05/15/2023 2:40 PM CDT Office Visit [facility] [address] [place] [address] Margareth Rivera, DO [address] [place] [address] care, subsequent , second trimester (Primary Dx) [...] Protein, ur, POC 1+(A) Negative Lot Number [id number] Urine 05/15/2023 2:48 PM CDT Margareth Rivera DO POINT OF CARE TEST ORDE RABCAL Final Result documented in this encounter Visit Diagnoses Diagnosis care, subsequent , second trimester- Primary documented in this encounter Care Teams Fry Cook Relationship Specialty Start Date End Date No, Physician PCP - General 03/09/23 documented as of this encounter
--- OUTSIDE RECORDS SUMMARY | 2024-10-29 00:32 | XMS_ITS | Encounter Summary ---
Author Organization [facility] Medical Group Address [address] [address] Care Team Providers Care Quarantine Officer Name Role Phone No, Physician Primary Care Provider [phone] Encounter Details Date Type Department Care Team (Late st Contact Info) Description 03/23/2023 12:50 PM CDT Lab [facility] [address] [place] [phone] care, subsequent , second trimester; 15 weeks [...] of documented in this encounter Care Teams Quarantine Officer Relationship Specialty Start Date End Date No, Physician PCP - General 03/09/23 documented as of this encounter
--- OUTSIDE RECORDS SUMMARY | 2024-10-29 00:32 | XMS_ITS | Encounter Summary ---
Author Organization [facility] Medical [facility] Address [address] [address] Care Team Providers Care Ground Wood Supervisor Name Role Phone No, Physician Primary Care Provider [phone] Encounter Details Date Type Department Care Team (Late st Contact Info) Description 06/16/2023 11:10 AM CDT Lab [facility] [address] [place] [phone] care, subsequent , third trimester (Primary [...] of documented in this encounter Care Teams Ground Wood Supervisor Relationship Specialty Start Date End Date No, Physician PCP - General 03/09/23 documented as of this encounter
== END 2024-10-22 04:20 | disposition home or self-care (01) ==
LOC: ANHED 03:09
PROVIDERS: Emergency Provider Emergency Medicine
DX: S61.012A Laceration without foreign body of left thumb without damage to nail, initial encounter (principal); W26.0XXA Contact with knife, initial encounter; Z87.891 Personal history of nicotine dependence
CPT/HCPCS: 12001; 99283; A9270